=== PATIENT | female | born 1970 | race Caucasian/White ===

== ENCOUNTER 2017-02-14 19:23 | Emergency (ER) | payer BC, MEDICAID ==
[~2017-02-14] VITALS: Ht 167.6 cm; Wt 88.0 kg
[~2017-02-14 19:23] MED LIST: ASCO500C PO; ASCO500T PO; BACT800T5 PO; CARV6.252 PO; CINA30 PO; COLA100C; COLA100C PO; DOXY100C PO; ESCI20TA PO; FOSR1000 CHEW; GABA600T PO; HYDR-755 PO; LANTINJ SQ; LORA-373 PO; LORA-392 PO; NEPHTAB3 PO; NEUR600T PO; OMEP40CA2 PO; OXYC-68 PO; PERC5TAB12 PO; PRIL40CA PO; SERT-129 PO; SEVEL800 PO; TRAZ50TA12 PO; TRAZ50TA4 PO; ZOFR4TAB PO
[2017-02-14 19:25] VITALS: BP 224/101; PULSE 103; RESP 16; TEMP 98.9; O2SAT 94
== END 2017-02-15 00:25 | disposition left against medical advice (07) ==
LOC: NED 19:23
DX: Z03.89 Encounter for observation for other suspected diseases and conditions ruled out (principal)
CPT/HCPCS: 99281

== ENCOUNTER 2017-02-19 14:41 | Inpatient (IN) | payer MEDICAID ==
[~2017-02-19] VITALS: Ht 165.1 cm; Wt 107.9 kg
[~2017-02-19 14:41] MED LIST changes: -ASCO500C PO; -BACT800T5 PO; -COLA100C PO; -LORA-392 PO; -NEUR600T PO; -OXYC-68 PO; -PRIL40CA PO; -TRAZ50TA4 PO
[2017-02-19 14:46] VITALS: BP 235/100; PULSE 95; RESP 16; TEMP 98.2; O2SAT 98
--- NOTE | 2017-02-19 15:29 | PD ---
Physical Exam Time Seen by Provider: 15:26 Narrative 46 y/o female here for evaluation of shortness of breath and elevated bp today as well as L foot pain for several months. Vital signs reviewed. Seen at triage desk. Awaiting bed placement. Data Data Last Documented VS Vital Signs Date Time Temp Pulse Resp B/P Pulse Ox O2 Delivery O2 Flow Rate FiO2 02/19/17 14:46 98.2 95 16 235/100 98 MDM Medical Record Reviewed: Yes Supervised Visit with GAMA: Jose Canales Feb 19, 2017 15:29
--- NOTE | 2017-02-19 15:47 | PD ---
HPI Chief Complaint: Respiratory Symptoms Time Seen by Provider: 15:47 Travel History International Travel<30 days: No Contact w/Intl Traveler<30days: No Traveled to known affect area: No History of Present Illness HPI 46-year-old female with history of end-stage renal disease, dialysis Saturday, Saturday, Saturday, hypertension, CHF, diabetes, right BKA, neuropathy, presents to emergency department today for evaluation of worsening shortness of breath and discoloration/pain of her left foot. Shortness of breath has been both at rest and with activity however patient states she is becoming less tolerating of activity due to the shortness of breath. Patient was seen and evaluated by CARLINE Muhammad on February 14 and advised to come emergency department for this however the patient did not at that time. Patient reports breaking the left foot approximately 6 months ago and discoloration started and that has worsened and increased proximal to the mid distal lower extremity. Patient states she did receive dialysis yesterday but this did not help her chest heaviness and shortness of breath. She does not make urine. Denies any fever or chills. Denies any pain. She has no other symptoms to report at this time. PFSH Past Medical History Hx Anticoagulant Therapy: Yes (Eliquis) Arthritis: No Asthma: No Autoimmune Disease: No Blood Disorders: No Anxiety: No Depression: Yes Heart Rhythm Problems: No Cancer: No Cardiovascular Problems: Yes (HTN, CAD) High Cholesterol: No Chemotherapy: No Chest Pain: No Congestive Heart Failure: No COPD: No Cerebrovascular Accident: No Diabetes: Yes Diminished Hearing: No Endocrine: No GERD: No Glaucoma: No Genitourinary: Yes Headaches: Yes Hepatitis: No Hiatal Hernia: No Hypertension: No Immune Disorder: No Kidney Stones: No Musculoskeletal: No Neurologic: No Psychiatric: Yes Reproductive: No Respiratory: Yes (PNEUMONIA) Migraines: Yes Myocardial Infarction: No Radiation Therapy: No 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) Seizures: No Sickle Cell Disease: No Sleep Apnea: No Thyroid Disease: No Ulcer: No : 2 Para: 2 Ovarian Cysts: Yes (RIGHT OOPHRECTOMY) Past Surgical History Abdominal Surgery: No AICD: No Cardiac Surgery: No Cholecystectomy: Yes Ear Surgery: No Endocrine Surgery: No Eye Surgery: No Genitourinary Surgery: No Gynecologic Surgery: Yes (RIGHT OOPHERECTOMY) Joint Replacement: No Oral Surgery: Yes (TEETH EXTRACTED) Pacemaker: No Thoracic Surgery: No Other Surgery: Yes Social History Alcohol Use: No Tobacco Use: Yes (2 CIGAR/ DAY) Substance Use: No Allergies-Medications (Allergen,Severity, Reaction): Coded Allergies: Amoxicillin (Unverified Allergy, Severe, HIVES, 02/14/17) Codeine (Verified Allergy, Severe, HYPERACTIVITY &ITCH, 02/14/17) Iodine (Verified Allergy, Severe, TOPICAL/ITCH, 02/14/17) Vancomycin (Verified Allergy, Severe, KIDNEY FAILURE, 02/14/17) Iohexol (OMNIPAQUE) (Unverified Allergy, Intermediate, HIVES, 02/14/17) *MDRO Multi-Drug Resistant Organism (Verified Allergy, Unknown, 02/14/17) MRSA Penicillin (Verified Allergy, Unknown, 02/14/17) Pork (Verified Allergy, Unknown, 02/14/17) Reported Meds & Prescriptions Reported Meds & Active Scripts Active Omeprazole 40 Mg Cap 40 Mg PO BID Carvedilol 6.25 Mg Tab 6.25 Mg PO BID Lantus Solostar Pen Inj (Insulin Glargine) 300 Unit/3 Ml Pen 28 Units SQ HS Reported Trazodone (Trazodone HCl) 50 Mg Tab 50 Mg PO HS Sertraline (Sertraline HCl) 100 Mg Tab 100 Mg PO DAILY Renvela (Sevelamer Carbonate) 800 Mg Tab 3,200 Mg PO QIDPC Percocet (Oxycodone-Acetaminophen) 5-325 mg Tab 1 Tab PO Q6H PRN Nephro-Lory (B-Complex W/ C & Folic Acid) 1 Tab 1 Tab PO DAILY Lorazepam 0.5 Mg Tab 0.5 Mg PO Q6H PRN Gabapentin 600 Mg Tab 600 Mg PO TID Fosrenol (Lanthanum Carbonate) 1,000 Mg Tab 1,000 Mg CHEW BID Colace (Docusate Sodium) 100 Mg Capsule 100 Mg BID Ascorbic Acid 500 Mg Tab 500 Mg PO BID Hydroxyzine HCl 10 Mg Tab 10 Mg PO Q8HR Review of Systems Except as stated in HPI: all other systems reviewed are Neg Physical Exam Narrative GENERAL: Obese female patient, sitting in bed, in no acute distress. Appears chronically ill SKIN: Focused skin assessment warm/dry. Patient has scabbed lesions of her face. HEAD: Atraumatic. Normocephalic. EYES: Pupils equal and round. No scleral icterus. No injection or drainage. ENT: No nasal bleeding or discharge. Mucous membranes pink and moist. NECK: Trachea midline. No JVD. CARDIOVASCULAR: Elevated rate and rhythm. RESPIRATORY: No accessory muscle use. Diminished to auscultation. Breath sounds equal bilaterally. GASTROINTESTINAL: Abdomen soft, non-tender, nondistended. Hepatic and splenic margins not palpable. MUSCULOSKELETAL: Right BKA. No clubbing. No cyanosis. No edema. The left foot is with hyperpigmentation/petechial markings that cover it in its entirety extending to the mid distal left lower extremity. Distal pulses are palpable. The foot is warm. Patient has a callus lesion on the distal aspect of the left great toe. NEUROLOGICAL: Awake and alert. No obvious cranial nerve deficits. Motor grossly within normal limits. Normal speech. PSYCHIATRIC: Appropriate mood and affect; insight and judgment normal. Data Data Last Documented VS Vital Signs Date Time Temp Pulse Resp B/P Pulse Ox O2 Delivery O2 Flow Rate FiO2 02/19/17 16:39 89 18 99 Nasal Cannula 2 02/19/17 16:39 212/93 02/19/17 14:46 98.2 Orders Complete Blood Count With Diff (02/19/17 16:00) Comprehensive Metabolic Panel (02/19/17 16:00) B-Type Natriuretic Peptide (02/19/17 16:00) Act Partial Throm Time (Ptt) (02/19/17 16:00) Prothrombin Time / Inr (Pt) (02/19/17 16:00) Ckmb (Isoenzyme) Profile (02/19/17 16:00) Troponin I (02/19/17 16:00) Iv Access Insert/Monitor (02/19/17 16:00) Electrocardiogram (02/19/17 16:00) Ecg Monitoring (02/19/17 16:00) Oximetry (02/19/17 16:00) Oxygen Administration (02/19/17 16:00) Chest, Single Ap (02/19/17 16:00) Sodium Chloride 0.9% Flush (Ns Flush) (02/19/17 16:00) Foot, Complete ([id number]) (02/19/17 ) Diet Renal (02/19/17 Dinner) Consult Nephrology (02/19/17 ) Nicardipine Inj (Cardene Inj) (02/19/17 18:45) (Hub Use Only)Inp Phy Cons/Ref (02/19/17 ) Admit Order (Ed Use Only) (02/19/17 18:38) Labs Laboratory Tests Test 02/19/17 16:10 White Blood Count 6.9 TH/MM3 Red Blood Count 3.31 MIL/MM3 Hemoglobin 10.2 GM/DL Hematocrit 31.2 % Mean Corpuscular Volume 94.3 FL Mean Corpuscular Hemoglobin 30.9 PG Mean Corpuscular Hemoglobin 32.8 % Concent Red Cell Distribution Width 15.0 % Platelet Count 297 TH/MM3 Mean Platelet Volume 8.0 FL Neutrophils (%) (Auto) 72.8 % Lymphocytes (%) (Auto) 15.6 % Monocytes (%) (Auto) 6.8 % Eosinophils (%) (Auto) 3.6 % Basophils (%) (Auto) 1.2 % Neutrophils # (Auto) 5.0 TH/MM3 Lymphocytes # (Auto) 1.1 TH/MM3 Monocytes # (Auto) 0.5 TH/MM3 Eosinophils # (Auto) 0.2 TH/MM3 Basophils # (Auto) 0.1 TH/MM3 CBC Comment DIFF FINAL Differential Comment Prothrombin Time 12.0 SEC Prothromb Time International 1.1 RATIO Ratio Activated Partial 25.6 SEC Thromboplast Time Sodium Level 130 MEQ/L Potassium Level 5.9 MEQ/L Chloride Level 97 MEQ/L Carbon Dioxide Level 20.5 MEQ/L Anion Gap 13 MEQ/L Blood Urea Nitrogen 54 MG/DL Creatinine 6.80 MG/DL Estimat Glomerular Filtration 7 ML/MIN Rate Random Glucose 336 MG/DL Calcium Level 9.7 MG/DL Total Bilirubin 0.4 MG/DL Aspartate Amino Transf 6 U/L (AST/SGOT) Alanine Aminotransferase 10 U/L (ALT/SGPT) Alkaline Phosphatase 115 U/L Total Creatine Kinase 55 U/L Troponin I 0.05 NG/ML B-Type Natriuretic Peptide 1250 PG/ML Total Protein 8.2 GM/DL Albumin 3.1 GM/DL MDM Medical Decision Making Medical Screen Exam Complete: Yes Emergency Medical Condition: Yes Medical Record Reviewed: Yes Differential Diagnosis CHF exacerbation versus pneumonia versus sepsis versus electrolyte abnormality versus occlusion versus PAD versus skin discoloration Narrative Course 46 year-old female presents to emergency department for evaluation. Patient appears without distress. Her heart rate is elevated breath sounds are diminished. In review of the patient's record, patient has consistently high BP with systolic greater than 200 and Diastolic Greater than 100. She is denying any focal deficits; no headaches; no visual changes. I have requested recheck with appropriate sized cuff. Laboratory Tests Test 02/19/17 16:10 White Blood Count 6.9 TH/MM3 Red Blood Count 3.31 MIL/MM3 Hemoglobin 10.2 GM/DL Hematocrit 31.2 % Mean Corpuscular Volume 94.3 FL Mean Corpuscular Hemoglobin 30.9 PG Mean Corpuscular Hemoglobin 32.8 % Concent Red Cell Distribution Width 15.0 % Platelet Count 297 TH/MM3 Mean Platelet Volume 8.0 FL Neutrophils (%) (Auto) 72.8 % Lymphocytes (%) (Auto) 15.6 % Monocytes (%) (Auto) 6.8 % Eosinophils (%) (Auto) 3.6 % Basophils (%) (Auto) 1.2 % Neutrophils # (Auto) 5.0 TH/MM3 Lymphocytes # (Auto) 1.1 TH/MM3 Monocytes # (Auto) 0.5 TH/MM3 Eosinophils # (Auto) 0.2 TH/MM3 Basophils # (Auto) 0.1 TH/MM3 CBC Comment DIFF FINAL Differential Comment Prothrombin Time 12.0 SEC Prothromb Time International 1.1 RATIO Ratio Activated Partial 25.6 SEC Thromboplast Time Sodium Level 130 MEQ/L Potassium Level 5.9 MEQ/L Chloride Level 97 MEQ/L Carbon Dioxide Level 20.5 MEQ/L Anion Gap 13 MEQ/L Blood Urea Nitrogen 54 MG/DL Creatinine 6.80 MG/DL Estimat Glomerular Filtration 7 ML/MIN Rate Random Glucose 336 MG/DL Calcium Level 9.7 MG/DL Total Bilirubin 0.4 MG/DL Aspartate Amino Transf 6 U/L (AST/SGOT) Alanine Aminotransferase 10 U/L (ALT/SGPT) Alkaline Phosphatase 115 U/L Total Creatine Kinase 55 U/L Troponin I 0.05 NG/ML B-Type Natriuretic Peptide 1250 PG/ML Total Protein 8.2 GM/DL Albumin 3.1 GM/DL Last Impressions Chest X-Ray 02/19/17 1600 Signed Impressions: Service Date/Time: Sunday, February 19, 2017 16:16 - CONCLUSION: Cardiomegaly, right basilar effusion and interstitial prominence suggesting some degree of congestive failure. Odilon Keenan MD Foot X-Ray 02/19/17 0000 Signed Impressions: Service Date/Time: Sunday, February 19, 2017 16:11 - CONCLUSION: Chronic changes and no evidence for acute fracture. Lin Pagan MD I discussed the patient with my attending physician who has also assessed the patient; recommends contacting nephrology prior to CTA with runoff of the lower extremities. I spoke with Dr. Gilbert who is covering for Dr. Bailey. He states they will be able to coordinate dialysis following CTA tomorrow. I discussed the patient Dr. Lugo; He requests cardene gtt as pt BP remains significantly elevated. This is ordered. [facility]. Diagnosis Primary Impression: CHF exacerbation Qualified Code: I50.9 - Acute on chronic congestive heart failure, unspecified congestive heart failure type Additional Impressions: Foot fracture, left Qualified Code: S92.902A - Foot fracture, left, closed, initial encounter Hypertension Qualified Code: I10 - Hypertension, unspecified type PAD (peripheral artery disease) Admitting Information Admitting Physician Requests: Admit Condition: Stable Basilia West Feb 19, 2017 15:47
[2017-02-19] MEDS ORDERED: SODIUM CHLORIDE 0.9% FLUSH 10 ML FLUSH IVF PRN (16:00)
[2017-02-19 16:39] VITALS: BP 212/93; PULSE 89; RESP 18; O2SAT 99
[2017-02-19 16:39] LABS: BASOPHIL # 0.1 TH/MM3 (0-0.2); BASOPHIL % 1.2 % (0.0-2.0); EOSINOPHIL # 0.2 TH/MM3 (0-0.4); EOSINOPHIL % 3.6 % (0.0-4.0); HEMATOCRIT 31.2 % (35.0-46.0); HEMO FLAGS DIFF FINAL; LYMPH % 15.6 % (9.0-44.0); LYMPHOCYTE # 1.1 TH/MM3 (1.0-4.8); MEAN CELL VOLUME 94.3 FL (80.0-100.0); MEAN CORPUSCULAR HEMOGLOBIN 30.9 PG (27.0-34.0); MEAN CORPUSCULAR HGB CONC 32.8 % (32.0-36.0); MONO % 6.8 % (0.0-8.0); NEUT % 72.8 % (16.0-70.0); PLATELET COUNT 297 TH/MM3 (150-450); RED BLOOD COUNT 3.31 MIL/MM3 (4.00-5.30); WHITE BLOOD COUNT 6.9 TH/MM3 (4.0-11.0)
[2017-02-19 16:49] LABS: APTT (PATIENT) 25.6 SEC (24.3-30.1); INTERNATIONAL NORMALIZED RATIO 1.1 RATIO
[2017-02-19 16:59] LABS: ANION GAP 13 MEQ/L (5-15); AST (GOT) 6 U/L (15-37); BICARBONATE 20.5 MEQ/L (21.0-32.0); BLOOD UREA NITROGEN 54 MG/DL (7-18); CHLORIDE 97 MEQ/L (98-107); GLOMERULAR FILTRATION RATE 7 ML/MIN (>89); POTASSIUM 5.9 MEQ/L (3.5-5.1); SODIUM (NA) 130 MEQ/L (136-145)
[2017-02-19 17:00] LABS: ALT (GPT) 10 U/L (10-53)
[2017-02-19 17:04] LABS: ALKALINE PHOSPHATASE 115 U/L (45-117); TOTAL BILIRUBIN ADULT 0.4 MG/DL (0.2-1.0)
--- NOTE | 2017-02-19 17:07 | RADRPT ---
EXAM DATE/TIME: 02/19/2017 16:16 [facility] COMPARISON: FOOT LEFT COMPLETE ([id number]), February 19, 2017, 16:11. INDICATIONS : Short of breath today, no chest pain MEDICAL HISTORY : Diabetes mellitus type II. Renal failure, chronic. left foot fracture SURGICAL HISTORY : right leg amputation ENCOUNTER: Initial ACUITY: 1 day PAIN SCORE: 0/10 LOCATION: Bilateral chest FINDINGS: The heart is enlarged. There is a pleural effusion on the right. There is diffuse interstitial promin ence. Exam would suggest congestive failure. Note is made of several stents within the right axillary vein. CONCLUSION: Cardiomegaly, right basilar effusion and interstitial prominence suggesting some degree of congestive failure. Odilon Keenan MD on February 19, 2017 at 17:05 Board Certified Radiologist. This report was verified electronically.
[2017-02-19 17:14] LABS: CREATINE KINASE 55 U/L (26-192)
--- NOTE | 2017-02-19 17:16 | RADRPT ---
EXAM DATE/TIME: 02/19/2017 16:11 [facility] COMPARISON: No previous studies available for comparison. EXTERNAL COMPARISON : [facility] left foot October 19, 2016 INDICATIONS : Left foot was fractured in October 2016 and was recently injured again when patient ran over her foot w ith her wheelchair, pain along lateral left foot , especially the fifth metatarsal. Entire left foot and ankle appears swollen and discolored MEDICAL HISTORY : Renal failure, chronic. Diabetes mellitus type II. left 5th metatarsal fracture, third digit on left foot fractured SURGICAL HISTORY : right leg amputation ENCOUNTER: Initial ACUITY: 4 - 6 months PAIN SCORE: 10/10 LOCATION: Left foot FINDINGS: There is an old fracture of fifth metatarsal bone appears to be healed, however slightly displaced. N o definite acute fracture is seen. Chronic atherosclerotic calcifications are seen involving the visu alized arteries. There are degenerative changes within multiple joints mainly the interphalangeal abdullahi nts and the first metatarsophalangeal joint. CONCLUSION: Chronic changes and no evidence for acute fracture. Lin Pagan MD on February 19, 2017 at 17:14 Board Certified Radiologist. This report was verified electronically.
--- NOTE | 2017-02-19 18:44 | HHI.HP ---
HPI Service [facility] Hospitalists Primary Care Physician Andrew Torres MD Admission Diagnosis CHF;SOB; HTN; ESRD; LLE discoloration?PAD/occlusion Diagnoses: Chief Complaint: Shortness of breath, Left Foot left foot painpain and discoloration Travel History International Travel<30 Days: No Contact w/Intl Traveler <30 Da: No Traveled to Known Affected Are: No History of Present Illness Written by Carolina Hernadez, acting as scribe for Dr. Lugo on 02/19/17 at 18: 46. Patient is a 46 year old female with primary medical history of end-stage renal disease on hemodialysis, CAD, CHF, history of DVT, blindness, DM 2, HTN who came into the hospital for evaluation of increasing shortness of breath and left foot pain. Patient states that she noticed this morning that she has increasing shortness of breath, with or without activities. States that it's aggravated by her transferring from her wheelchair to regular chair and states that she felt like she have this kind of feeling 3 years ago when she had congestive heart failure. She also complains of orthopnea started about 3 days ago that she's able to put multiple pillows to be able to breathe better. States she had hemodialysis done yesterday and had 5 L fluid removal. Patient also reports left lower extremity pain, worsening discoloration over duration of 5 months. States that she had an accident and had broken her left foot 5 months ago, went to [place] and states it is broken in 5 different spots, was referred to [facility] [place] and was given a boot where in she had a fall with it also that she stopped using it. Due to change in her insurance and she was unable to follow up with orthopedist nor seen a [employer] letter carrier. Patient also reports that she hasn't had any of her blood pressure medications for about 4 days. She was seen at [facility] where in she was restarted on some of her "medications insulin, stomach medication, carvedilol." But she ran out on most of her medications for about 2 weeks now due to not having medication coverage from her insurance. Otherwise, denies pain and discomfort. Denies chest pain, palpitations, headaches, dizziness. Denies fevers, chills, n/v/d. Review of Systems Except as stated in HPI: all other systems reviewed are Neg Past Family Social History Past Medical History Bilateral eye blindness CAD CHF Anxiety Depression History of DVT Chronic back pain Left hip injury End-stage renal disease on hemodialysis DM 2 HTN Diabetic nephropathy Diabetic neuropathy Past Surgical History Right BKA Right arm fistula Left arm fistula, failed Knee surgery right Bilateral eye surgery lens implant Reported Medications Reported Meds & Active Scripts Active Omeprazole 40 Mg Cap 40 Mg PO BID Carvedilol 6.25 Mg Tab 6.25 Mg PO BID Lantus Solostar Pen Inj (Insulin Glargine) 300 Unit/3 Ml Pen 28 Units SQ HS Reported Trazodone (Trazodone HCl) 50 Mg Tab 50 Mg PO HS Sertraline (Sertraline HCl) 100 Mg Tab 100 Mg PO DAILY Sensipar (Cinacalcet) 30 Mg Tab 30 Mg PO DAILY Renvela (Sevelamer Carbonate) 800 Mg Tab 800 Mg PO QID Percocet (Oxycodone-Acetaminophen) 5-325 mg Tab 1 Tab PO Q6H PRN Nephro-Lory (B-Complex W/ C & Folic Acid) 1 Tab 1 Tab PO DAILY Lorazepam 0.5 Mg Tab 0.5 Mg PO Q6H PRN Gabapentin 600 Mg Tab 600 Mg PO TID Fosrenol (Lanthanum Carbonate) 1,000 Mg Tab 1,000 Mg CHEW BID Escitalopram (Escitalopram Oxalate) 20 Mg Tab 20 Mg PO DAILY Colace (Docusate Sodium) 100 Mg Capsule 100 Mg BID Ascorbic Acid 500 Mg Tab 500 Mg PO BID Doxycycline Hyclate 100 Mg Cap 100 Mg PO BID Hydroxyzine HCl 10 Mg Tab 10 Mg PO Q8HR Zofran (Ondansetron HCl) 4 Mg Tab 4 Mg PO Q8HR PRN Allergies: Coded Allergies: Amoxicillin (Unverified Allergy, Severe, HIVES, 02/14/17) Codeine (Verified Allergy, Severe, HYPERACTIVITY &ITCH, 02/14/17) Iodine (Verified Allergy, Severe, TOPICAL/ITCH, 02/14/17) Vancomycin (Verified Allergy, Severe, KIDNEY FAILURE, 02/14/17) Iohexol (OMNIPAQUE) (Unverified Allergy, Intermediate, HIVES, 02/14/17) *MDRO Multi-Drug Resistant Organism (Verified Allergy, Unknown, 02/14/17) MRSA Penicillin (Verified Allergy, Unknown, 02/14/17) Pork (Verified Allergy, Unknown, 02/14/17) Active Ordered Medications Current Medications Medications (Trade) Dose Ordered Sig/Jen Route Start Time Stop Time Status Last Admin Sodium Chloride 2 ml 2 ml UNSCH PRN IVF 02/19/17 16:00 (Cardene Inj/NS 250 ml Inj) 260 ml @ 0 mls/hr TITRATE IV 02/19/17 18:45 Family History Mother had diabetes, hypertension, blindness Father had heart disease, CABG surgery, bladder cancer, leukemia Social History Rare alcohol use Smokes half a pack per day, current day smoker Marijuana use Based on review of past medical history patient previously had IV drug use, cocaine use Physical Exam Vital Signs Vital Signs Date Time Temp Pulse Resp B/P Pulse Ox O2 Delivery O2 Flow Rate FiO2 02/19/17 16:39 89 18 99 Nasal Cannula 2 02/19/17 16:39 99 Nasal Cannula 2 02/19/17 16:39 89 18 212/93 99 Nasal Cannula 2 02/19/17 14:46 98.2 95 16 235/100 98 Physical Exam GENERAL: This is an obese, well-developed patient, mildly distress/ SOB. SKIN: Multiple facial and extremity lesions. Warm and dry. Left lower extremity discoloration. HEAD: Atraumatic. Normocephalic. EYES: Pupils equal round and reactive. Extraocular motions intact. No scleral icterus. No injection or drainage. ENT: Nose without bleeding. Throat without erythema. Uvula midline. Airway patent. NECK: Trachea midline. CARDIOVASCULAR: Regular rate and rhythm without murmurs, gallops, or rubs. RESPIRATORY: Clear to auscultation. Breath sounds equal bilaterally. No wheezes , rales, or rhonchi. GASTROINTESTINAL: Abdomen soft, obese, non-tender, nondistended. Bowel sounds active 4. MUSCULOSKELETAL: Extremities without clubbing, cyanosis, or edema. Left lower extremity discoloration, notable purpura, warm, pulses weak. Right AV fistula positive thrill and bruit. Right BKA. NEUROLOGICAL: Awake and alert. Oriented to time, person, place. No focal neuro deficit. Normal speech. Laboratory Laboratory Tests Test 02/19/17 16:10 White Blood Count 6.9 Red Blood Count 3.31 Hemoglobin 10.2 Hematocrit 31.2 Mean Corpuscular Volume 94.3 Mean Corpuscular Hemoglobin 30.9 Mean Corpuscular Hemoglobin 32.8 Concent Red Cell Distribution Width 15.0 Platelet Count 297 Mean Platelet Volume 8.0 Neutrophils (%) (Auto) 72.8 Lymphocytes (%) (Auto) 15.6 Monocytes (%) (Auto) 6.8 Eosinophils (%) (Auto) 3.6 Basophils (%) (Auto) 1.2 Neutrophils # (Auto) 5.0 Lymphocytes # (Auto) 1.1 Monocytes # (Auto) 0.5 Eosinophils # (Auto) 0.2 Basophils # (Auto) 0.1 CBC Comment DIFF FINAL Differential Comment Prothrombin Time 12.0 Prothromb Time International 1.1 Ratio Activated Partial 25.6 Thromboplast Time Sodium Level 130 Potassium Level 5.9 Chloride Level 97 Carbon Dioxide Level 20.5 Anion Gap 13 Blood Urea Nitrogen 54 Creatinine 6.80 Estimat Glomerular Filtration 7 Rate Random Glucose 336 Calcium Level 9.7 Total Bilirubin 0.4 Aspartate Amino Transf 6 (AST/SGOT) Alanine Aminotransferase 10 (ALT/SGPT) Alkaline Phosphatase 115 Total Creatine Kinase 55 Troponin I 0.05 B-Type Natriuretic Peptide 1250 Total Protein 8.2 Albumin 3.1 Result Diagram: 02/19/17 1610 02/19/17 1610 Imaging Last Impressions Chest X-Ray 02/19/17 1600 Signed Impressions: Service Date/Time: Sunday, February 19, 2017 16:16 - CONCLUSION: Cardiomegaly, right basilar effusion and interstitial prominence suggesting some degree of congestive failure. Odilon Keenan MD Foot X-Ray 02/19/17 0000 Signed Impressions: Service Date/Time: Sunday, February 19, 2017 16:11 - CONCLUSION: Chronic changes and no evidence for acute fracture. Lin Pagan MD Assessment and Plan Problem List: (1) Hypertension ICD Code: I10 Status: Acute (2) PAD (peripheral artery disease) ICD Code: I73.9 Status: Acute (3) Tobacco abuse ICD Code: Z72.0 Status: Chronic (4) ESRD (end stage renal disease) on dialysis ICD Code: N18.6 Status: Chronic (5) Diabetes ICD Code: E11.9 Status: Chronic (6) CHF exacerbation ICD Code: I50.9 Status: Acute (7) Hypertensive emergency ICD Code: I16.1 Status: Acute (8) Acute on chronic diastolic (congestive) heart failure ICD Code: I50.33 Status: Acute Assessment and Plan Patient is a 46 year old female with primary medical history of end-stage renal disease on hemodialysis, CAD, CHF, history of DVT, blindness, DM 2, HTN who came into the hospital for evaluation of increasing shortness of breath and left foot pain. Acute on chronic diastolic CHF exacerbation SOB, Orthopnea - Patient was complaining of increasing shortness of breath. Had hemodialysis done yesterday and 5 L fluid removal was done. - Chest x-ray showed cardiomegaly, right basilar effusion and interstitial prominence suggesting some degree of congestive failure - BNP 1250 - Fluid restriction - Continue on O2 nasal cannula and starts IV Lasix 20 mg daily - Check ECHO, last echo cardiogram done in 2010, EF 55-60% mitral valve regurg, left atrium mildly dilated, and tricuspid with mild regurgitation - Consult nephrology for hemodialysis, diuretic use if possible - CLOTH BLEACHING RANGE TENDER 6.80. May need immediate HD - Will resume carvedilol in patients off Cardene drip - May benefit with chest ultrasound for possible thoracentesis HTN, accelerated - Cardene drip - Monitor BP trend, may need vasodilator as adjunct since patient has heart failure End-stage renal disease - Patient was on outpatient hemodialysis MWF - Consult nephrology to restart hemodialysis Left lower extremity, PAD - Pain and discoloration have been noticed since 5 months ago. - X-ray showed chronic changes and no evidence for acute fracture - Pain management - Vascular imaging - CT runoff - Podiatry consult DM 2 - Insulin sliding scale, Cont Basal insulin - Monitor Accu-Cheks - Restart diabetic diet Tobacco abuse - Patient counseled. Hyperkalemia - K 5.9 - Kayexalate DVT Prop Heparin This note was transcribed by franca Hernadez. I, Dr. Osvaldo Lugo personally performed the history, physical exam, and medical decision making; and confirmed the accuracy of the information in the transcribed note. Authenticated by Dr. Osvaldo Lugo on 02/19/17 at 18:46. Code Status Full Code Discussed Condition With Patient, mother, ED attending Physician Certification 2 Midnight Certification Type: Admission for Inpatient Services (2) Order for Inpatient Services The services are ordered in accordance with Medicare regulations or non- Medicare payer requirements, as applicable. In the case of services not specified as inpatient-only, they are appropriately provided as inpatient services in accordance with the 2-midnight benchmark. Estimated LOS (days): 2 days is the estimated time the patient will need to remain in the hospital, assuming treatment plan goals are met and no additional complications. Post-Hospital Plan: Not yet determined Problem Qualifiers (1) Hypertension: Qualified Code: I10 - Hypertension, unspecified type (2) Diabetes: (3) CHF exacerbation: Qualified Code: I50.9 - Acute on chronic congestive heart failure, unspecified congestive heart failure type Carolina Velazco Feb 19, 2017 18:43 Osvaldo Lugo MD Feb 19, 2017 18:54
[2017-02-19 19:15] VITALS: BP 167/79; PULSE 70; RESP 16; O2SAT 98
[2017-02-19 19:24] VITALS: O2SAT 98
[2017-02-19] MEDS ORDERED: LACTULOSE SYRUP 20 GM/30 ML CUP PO PRN (19:30)
[2017-02-19] MEDS ORDERED: BISACODYL 10 MG SUPP RECTAL PRN (19:30)
[2017-02-19] MEDS ORDERED: GLUCAGON 1 MG/ML VIAL OTHER PRN (19:30)
[2017-02-19] MEDS ORDERED: SENNOSIDES 8.6 MG TAB PO PRN (19:30)
[2017-02-19] MEDS ORDERED: NALOXONE HCL 0.4 MG/ML AMP IV PRN (19:30)
[2017-02-19] MEDS ORDERED: SODIUM CHLORIDE 0.9% FLUSH 10 ML FLUSH IV FLUSH PRN ×2 (19:30→21:30)
[2017-02-19] MEDS ORDERED: ONDANSETRON HCL 4 MG/2 ML VIAL IVP PRN (19:30)
[2017-02-19] MEDS ORDERED: ACETAMINOPHEN 325 MG TAB PO PRN ×2 (19:30→21:30)
[2017-02-19] MEDS ORDERED: DEXTROSE 50% IN WATER 50 ML VIAL(D50) IV PRN (19:30)
[2017-02-19] MEDS ORDERED: MAGNESIUM HYDROXIDE SUSP 30 ML CUP PO PRN (19:30)
[2017-02-19] MEDS: niCARdipine INJ 25 MG in SODIUM CHLOR 0.9% 250 ML INJ 250 ML IV SCH (20:03)
[2017-02-19 20:34] VITALS: BP 203/80; PULSE 99; RESP 18; O2SAT 95
[2017-02-19] MEDS ORDERED: DOCUSATE SODIUM 50 MG/SENNA 8.6 MG TAB PO SCH (21:00)
[2017-02-19] MEDS ORDERED: INSULIN DETEMIR 100 UNITS/ML VIAL SQ SCH (21:00)
--- NOTE | 2017-02-19 21:09 | RADRPT ---
EXAM DATE/TIME: 02/19/2017 20:30 [place] COMPARISON: No previous studies available for comparison. INDICATIONS : Shortness of breath. MEDICAL HISTORY : Hypercholesterolemia. Gastroesophageal reflux disease. Hypertension. Legally blind. Migraines. Palmer ry artery disease. Anticoagulant therapy, Eliquis. Pneumonia. Ovarian cysts. Prgenancy. Renal failure . Dialysis. Diabetes. Depression. MRSA. Anemia. SURGICAL HISTORY : Cardiac catheterization. Right Oophorectomy. Right knee surgery. Right below the knee amputation. ENCOUNTER: Initial ACUITY: 1 day PAIN SCORE: 4/10 LOCATION: Right chest MEASUREMENTS: SKIN TO PARIETAL PLEURA: Inadequate fluid SKIN TO MAX SAFE DEPTH: Inadequate fluid ESTIMATED FLUID VOLUME: FLUID COMPOSITION: Inadequate fluid FINDINGS: No marking was performed. CONCLUSION: Only a trace amount of fluid seen within the right pleural space. Mark Sánchez Jr., MD on February 19, 2017 at 21:07 Board Certified Radiologist. This report was verified electronically.
[2017-02-19] MEDS ORDERED: SODIUM CHLOR 0.9% 1000 ML INJ 1,000 ML IV PRN ×2 (21:21)
[2017-02-19] MEDS ORDERED: ALBUMIN HUMAN 25% 25 GM/100 ML BAGP IV PRN (21:30)
[2017-02-19] MEDS ORDERED: GENTAMICIN SULFATE (DIALYSIS USE ONLY) 20 MG/2 ML VIAL IV PRN (21:30)
[2017-02-19] MEDS ORDERED: NITROGLYCERIN 0.4 MG SL 25 TABS/BTL SL PRN (21:30)
[2017-02-19] MEDS ORDERED: ONDANSETRON HCL 4 MG/2 ML VIAL IV PRN (21:30)
[2017-02-19] MEDS ORDERED: HEPARIN SODIUM - IV 10,000 UNITS/10 ML VIAL IVF PRN (21:30)
[2017-02-19] MEDS ORDERED: HEPARIN SODIUM - IV 10,000 UNITS/10 ML VIAL PRN (21:30)
[2017-02-19] MEDS ORDERED: MANNITOL 12.5 GM/50 ML VIAL IV PRN (21:30)
--- NOTE | 2017-02-19 21:53 | EKG ---
Date Performed: 02/19/2017 Time Performed: 16:03:41 PTAGE: 46 years EKG: Sinus rhythm MINIMAL ST DEPRESSION BORDERLINE ECG PREVIOUS TRACING : 02/07/2016 15.36 Compared to prior tracing no significant change DOCTOR: Milana Middleton Interpretating Date/Time 02/19/2017 21:51:31
[2017-02-19] MEDS: SODIUM POLYSTYRENE SULFONATE SUSP 15 GM/60 ML CUP PO ONE ×2 (22:21→22:42)
[2017-02-19 22:23] VITALS: BP 143/63; PULSE 92; RESP 20; O2SAT 95
[2017-02-19] MEDS: SODIUM CHLORIDE 0.9% FLUSH 10 ML FLUSH IV FLUSH SCH (22:42)
[2017-02-19] MEDS: HEPARIN SODIUM - SQ 10,000 UNITS/ML VIAL SQ SCH (22:43)
[2017-02-19] MEDS: INSULIN ASPART SUPPLEMENTAL SCALE SQ SCH (22:44)
[2017-02-19] MEDS: FUROSEMIDE 20 MG/2 ML VIAL IV PUSH SCH (22:46)
[2017-02-20] VITALS (10 sets, daily range): BP systolic 138–180; BP diastolic 65–88; PULSE 78–100; RESP 17–20; TEMP 98.1–98.6; O2SAT 96–99
[2017-02-20 05:32] LABS: AUTOMATED NEUTROPHIL # 6.4 TH/MM3 (1.8-7.7); BASOPHIL # 0.1 TH/MM3 (0-0.2); BASOPHIL % 0.9 % (0.0-2.0); EOSINOPHIL # 0.5 TH/MM3 (0-0.4); EOSINOPHIL % 5.3 % (0.0-4.0); HEMO FLAGS DIFF FINAL; LYMPH % 17.8 % (9.0-44.0); LYMPHOCYTE # 1.7 TH/MM3 (1.0-4.8); MEAN CELL VOLUME 95.9 FL (80.0-100.0); MEAN CORPUSCULAR HEMOGLOBIN 31.4 PG (27.0-34.0); MEAN CORPUSCULAR HGB CONC 32.7 % (32.0-36.0); MONO % 7.7 % (0.0-8.0); NEUT % 68.3 % (16.0-70.0); PLATELET COUNT 274 TH/MM3 (150-450); RED BLOOD COUNT 3.13 MIL/MM3 (4.00-5.30); RED CELL DISTRIBUTION WIDTH 14.6 % (11.6-17.2); WHITE BLOOD COUNT 9.3 TH/MM3 (4.0-11.0)
[2017-02-20 06:00] LABS: ALKALINE PHOSPHATASE 102 U/L (45-117); ALT (GPT) 9 U/L (10-53); ANION GAP 12 MEQ/L (5-15); AST (GOT) 3 U/L (15-37); BICARBONATE 21.9 MEQ/L (21.0-32.0); BLOOD UREA NITROGEN 63 MG/DL (7-18); CHLORIDE 98 MEQ/L (98-107); GLOMERULAR FILTRATION RATE 6 ML/MIN (>89); POTASSIUM 5.2 MEQ/L (3.5-5.1); SODIUM (NA) 132 MEQ/L (136-145); TOTAL BILIRUBIN ADULT 0.5 MG/DL (0.2-1.0)
[2017-02-20] MEDS ORDERED: hydrALAZINE HCL 20 MG/ML VIAL IV PUSH ONE (06:15)
--- NOTE | 2017-02-20 06:16 | HHI.PR ---
Subjective Remarks Critical Care brief consult note: Patient targeted to ICU from Hospitalist service. I have evaluated the patient for appropriateness of level of care. In brief, 46yF with ESRD and CHF who presented with SOB and found to have CHF exacerbation with elevated BNP. Also presented with hypertensive urgency on nicardipine infusion. Patient resting comfortably on my exam on 2L o2 by NC on nicardipine at 10mg/hr and a sbp 150. not tachypneic. not in distress. denies other complaints. ROS otherwise negative. Assessment: 46yF ESRD and CHF. Active Problems: Hypertension CHF exacerbation, diastolic type Recommendations: -- agree with current plan and management. -- I have contacted the hospitalist team and asked if we can restart her home meds and oral anti-hypertensives so that we can wean off rapidly titratable nicardipine infusion, and they have agreed with this joint plan of action -- I have started hydralazine 50mg po q8h with a 1 time hydralazine 20mg iv dose. -- restart home carvedilol 6.25mg po BID, first dose now. -- once off nicardipine, does not meet ICU admission criteria. Will decrease level of care. The Critical Care medicine team will remain peripherally aware of the patient, but will continue to allow hospitalist service to manage the patient's ongoing medical problems. Please contact us for questions or concerns. Objective Vital Signs Date Time Temp Pulse Resp B/P Pulse Ox O2 Delivery O2 Flow Rate FiO2 02/20/17 04:51 88 17 150/87 97 Nasal Cannula 2 02/20/17 04:43 98 Nasal Cannula 2.00 02/20/17 01:57 78 18 142/88 98 Nasal Cannula 2 02/20/17 00:28 88 20 146/66 98 Nasal Cannula 2 02/19/17 22:23 92 20 143/63 95 Nasal Cannula 2 02/19/17 20:34 99 18 203/80 95 Room Air 02/19/17 19:24 98 Nasal Cannula 2.00 02/19/17 19:15 70 16 167/79 98 Nasal Cannula 2 02/19/17 16:39 89 18 99 Nasal Cannula 2 02/19/17 16:39 99 Nasal Cannula 2 02/19/17 16:39 89 18 212/93 99 Nasal Cannula 2 02/19/17 14:46 98.2 95 16 235/100 98 Result Diagram: 02/20/17 0506 02/20/17 0506 Luis Carlos Jung MD Feb 20, 2017 06:16
[2017-02-20] MEDS: hydrALAZINE HCL 50 MG TAB PO SCH ×3 (06:35→21:51)
[2017-02-20] MEDS: CARVEDILOL 6.25 MG TAB PO SCH ×2 (07:02→21:51)
[2017-02-20] MEDS: INSULIN ASPART SUPPLEMENTAL SCALE SQ SCH ×4 (07:44→21:58)
[2017-02-20] MEDS: niCARdipine INJ 25 MG in SODIUM CHLOR 0.9% 250 ML INJ 250 ML IV SCH (07:48)
[2017-02-20] MEDS: HEPARIN SODIUM - SQ 10,000 UNITS/ML VIAL SQ SCH ×2 (09:00→21:51)
[2017-02-20] MEDS: FUROSEMIDE 20 MG/2 ML VIAL IV PUSH SCH (09:00)
[2017-02-20] MEDS: SODIUM CHLORIDE 0.9% FLUSH 10 ML FLUSH IV FLUSH SCH ×2 (09:06→21:52)
[2017-02-20] MEDS: SODIUM CHLOR 0.9% 1000 ML INJ 1,000 ML IV PRN ×2 (09:36→12:47)
[2017-02-20] MEDS: GELATIN 12 MM/7 MM FOAM TOP PRN (09:37)
[2017-02-20] MEDS: EPOETIN ALFA 10,000 UNITS/ML VIAL IV PRN (09:37)
--- NOTE | 2017-02-20 11:05 | PD.CONS ---
HPI Service Nephrology Consult Requested By Dr. 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 Mason. Her dialysis days are Saturday and Saturday Review of Systems Constitutional: COMPLAINS OF: Fatigue Integumentary: COMPLAINS OF: Abnormal pigmentation, Rash Neurologic: COMPLAINS OF: Abnormal gait Past Family Social History Allergies: Coded Allergies: Amoxicillin (Unverified Allergy, Severe, HIVES, 02/14/17) Codeine (Verified Allergy, Severe, HYPERACTIVITY &ITCH, 02/14/17) Iodine (Verified Allergy, Severe, TOPICAL/ITCH, 02/14/17) Vancomycin (Verified Allergy, Severe, KIDNEY FAILURE, 02/14/17) Iohexol (OMNIPAQUE) (Unverified Allergy, Intermediate, HIVES, 02/14/17) *MDRO Multi-Drug Resistant Organism (Verified Allergy, Unknown, 02/14/17) MRSA Penicillin (Verified Allergy, Unknown, 02/14/17) Pork (Verified Allergy, Unknown, 02/14/17) Past Medical History Diabetes Hypertension End-stage renal disease Anemia Hyperparathyroidism Calciphylaxis Peripheral vascular disease Wound infection Past Surgical History Right below-knee amputation AV fistula Right sided oophorectomy Reported Medications Reported Meds & Active Scripts Active Omeprazole 40 Mg Cap 40 Mg PO BID Carvedilol 6.25 Mg Tab 6.25 Mg PO BID Lantus Solostar Pen Inj (Insulin Glargine) 300 Unit/3 Ml Pen 28 Units SQ HS Reported Trazodone (Trazodone HCl) 50 Mg Tab 50 Mg PO HS Sertraline (Sertraline HCl) 100 Mg Tab 100 Mg PO DAILY Renvela (Sevelamer Carbonate) 800 Mg Tab 3,200 Mg PO QIDPC Percocet (Oxycodone-Acetaminophen) 5-325 mg Tab 1 Tab PO Q6H PRN Nephro-Lory (B-Complex W/ C & Folic Acid) 1 Tab 1 Tab PO DAILY Lorazepam 0.5 Mg Tab 0.5 Mg PO Q6H PRN Gabapentin 600 Mg Tab 600 Mg PO TID Fosrenol (Lanthanum Carbonate) 1,000 Mg Tab 1,000 Mg CHEW BID Colace (Docusate Sodium) 100 Mg Capsule 100 Mg BID Ascorbic Acid 500 Mg Tab 500 Mg PO BID Hydroxyzine HCl 10 Mg Tab 10 Mg PO Q8HR Active Ordered Medications Current Medications Medications (Trade) Dose Ordered Sig/Jen Route Start Time Stop Time Status Last Admin Sodium Chloride 2 ml 2 ml UNSCH PRN IVF 02/19/17 16:00 (Cardene Inj/NS 250 ml Inj) 260 ml @ 0 mls/hr TITRATE IV 02/19/17 18:45 02/19/17 20:03 (NS Flush) 2 ml UNSCH PRN IV FLUSH 02/19/17 19:30 (NS Flush) 2 ml BID IV FLUSH 02/19/17 21:00 02/20/17 09:06 (Tylenol) 650 mg Q4H PRN PO 02/19/17 19:30 (Zofran Inj) 4 mg Q6H PRN IVP 02/19/17 19:30 (Narcan Inj) 0.4 mg UNSCH PRN IV 02/19/17 19:30 (Senokot) 17.2 mg Q12H PRN PO 02/19/17 19:30 (Dulcolax Supp) 10 mg DAILY PRN RECTAL 02/19/17 19:30 (D50w (Vial) Inj) 50 ml UNSCH PRN IV 02/19/17 19:30 (Glucagon Inj) 1 mg UNSCH PRN OTHER 02/19/17 19:30 (Levemir Inj) 28 units HS SQ 02/19/17 21:00 02/19/17 22:43 (Heparin Inj) 5,000 units Q12HR SQ 02/19/17 21:00 02/19/17 22:43 Furosemide 20 mg 20 mg DAILY IV PUSH 02/19/17 21:15 02/19/17 22:46 (NS 1000 ml Inj) 1,000 ml @ 0 mls/hr Q0M PRN IV 02/19/17 21:21 Heparin Sodium (Porcine) 8000 units 8,000 units UNSCH PRN IVF 02/19/17 21:30 Sodium Chloride 1,000 ml @ 200 mls/hr Q5H PRN IV 02/19/17 21:21 02/20/17 09:36 (NS 1000 ml Inj) 1,000 ml @ 0 mls/hr Q0M PRN IV 02/19/17 21:21 (Mannitol Inj) 12.5 gm UNSCH PRN IV 02/19/17 21:30 (Albumin 25% Inj) 25 gm UNSCH PRN IV 02/19/17 21:30 (NS Flush) 5 ml UNSCH PRN IV FLUSH 02/19/17 21:30 (Heparin Inj) UNSCH PRN .XX 02/19/17 21:30 (Gentamicin (Dialysis) Inj) 20 mg UNSCH PRN IV 02/19/17 21:30 (Zofran Inj) 4 mg UNSCH PRN IV 02/19/17 21:30 (Tylenol) 650 mg UNSCH PRN PO 02/19/17 21:30 (Benadryl) 25 mg UNSCH PRN PO 02/19/17 21:30 (Nitrostat Sl) 0.4 mg UNSCH PRN SL 02/19/17 21:30 (Catapres) 0.1 mg UNSCH PRN PO 02/19/17 21:30 (Epogen Inj) 4,000 units UNSCH PRN IV 02/19/17 21:30 02/20/17 09:37 (Gelfoam 12 Mm/7 Mm Top) 1 foam UNSCH PRN TOP 02/19/17 21:30 02/20/17 09:37 (Apresoline) 50 mg Q8HR PO 02/20/17 06:06 02/20/17 06:35 (Coreg) 6.25 mg BID PO 02/20/17 09:00 02/20/17 07:02 Family History Noncontributory Social History History of use of marijuana Physical Exam Vital Signs Vital Signs Date Time Temp Pulse Resp B/P Pulse Ox O2 Delivery O2 Flow Rate FiO2 02/20/17 07:00 86 18 156/68 98 Nasal Cannula 2 02/20/17 04:51 88 17 150/87 97 Nasal Cannula 2 02/20/17 04:43 98 Nasal Cannula 2.00 02/20/17 01:57 78 18 142/88 98 Nasal Cannula 2 02/20/17 00:28 88 20 146/66 98 Nasal Cannula 2 02/19/17 22:23 92 20 143/63 95 Nasal Cannula 2 02/19/17 20:34 99 18 203/80 95 Room Air 02/19/17 19:24 98 Nasal Cannula 2.00 02/19/17 19:15 70 16 167/79 98 Nasal Cannula 2 02/19/17 16:39 89 18 99 Nasal Cannula 2 02/19/17 16:39 99 Nasal Cannula 2 02/19/17 16:39 89 18 212/93 99 Nasal Cannula 2 02/19/17 14:46 98.2 95 16 235/100 98 Physical Exam GENERAL: Well-nourished, well-developed patient. SKIN: Warm and dry. HEAD: Normocephalic. Ulceration seen on forehead EYES: No scleral icterus. No injection or drainage. NECK: Supple, trachea midline. No JVD or lymphadenopathy. CARDIOVASCULAR: Regular rate and rhythm without murmurs, gallops, or rubs. RESPIRATORY: Breath sounds equal bilaterally. No accessory muscle use. GASTROINTESTINAL: Abdomen soft, non-tender, nondistended. EXTREMITIES: Left foot is mottled discolored poor pulses, right below-knee amputation NEUROLOGICAL: Awake, alert, and oriented x 3. Non-focal. Laboratory Laboratory Tests Test 02/19/17 02/20/17 16:10 05:06 White Blood Count 6.9 9.3 Red Blood Count 3.31 3.13 Hemoglobin 10.2 9.8 Hematocrit 31.2 30.0 Mean Corpuscular Volume 94.3 95.9 Mean Corpuscular Hemoglobin 30.9 31.4 Mean Corpuscular Hemoglobin 32.8 32.7 Concent Red Cell Distribution Width 15.0 14.6 Platelet Count 297 274 Mean Platelet Volume 8.0 7.8 Neutrophils (%) (Auto) 72.8 68.3 Lymphocytes (%) (Auto) 15.6 17.8 Monocytes (%) (Auto) 6.8 7.7 Eosinophils (%) (Auto) 3.6 5.3 Basophils (%) (Auto) 1.2 0.9 Neutrophils # (Auto) 5.0 6.4 Lymphocytes # (Auto) 1.1 1.7 Monocytes # (Auto) 0.5 0.7 Eosinophils # (Auto) 0.2 0.5 Basophils # (Auto) 0.1 0.1 CBC Comment DIFF FINAL DIFF FINAL Differential Comment Prothrombin Time 12.0 Prothromb Time International 1.1 Ratio Activated Partial 25.6 Thromboplast Time Sodium Level 130 132 Potassium Level 5.9 5.2 Chloride Level 97 98 Carbon Dioxide Level 20.5 21.9 Anion Gap 13 12 Blood Urea Nitrogen 54 63 Creatinine 6.80 7.28 Estimat Glomerular Filtration 7 6 Rate Random Glucose 336 227 Calcium Level 9.7 9.6 Total Bilirubin 0.4 0.5 Aspartate Amino Transf 6 3 (AST/SGOT) Alanine Aminotransferase 10 9 (ALT/SGPT) Alkaline Phosphatase 115 102 Total Creatine Kinase 55 Troponin I 0.05 B-Type Natriuretic Peptide 1250 Total Protein 8.2 7.9 Albumin 3.1 3.1 Result Diagram: 02/20/17 0506 02/20/17 0506 Imaging Last Impressions Chest X-Ray 02/19/17 1600 Signed Impressions: Service Date/Time: Sunday, February 19, 2017 16:16 - CONCLUSION: Cardiomegaly, right basilar effusion and interstitial prominence suggesting some degree of congestive failure. Odilon Keenan MD Foot X-Ray 02/19/17 0000 Signed Impressions: Service Date/Time: Sunday, February 19, 2017 16:11 - CONCLUSION: Chronic changes and no evidence for acute fracture. Lin Pagan MD Chest Ultrasound 02/19/17 0000 Signed Impressions: Service Date/Time: Sunday, February 19, 2017 20:30 - CONCLUSION: Only a trace amount of fluid seen within the right pleural space. Mark Sánchez Jr., MD Assessment and Plan Problem List: (1) ESRD (end stage renal disease) on dialysis Plan: Patient is seen during hemodialysis for 5 L will be taken off, she has a problem with the left ischemic foot and needs a vascular surgery consult Continue to follow her progress (2) Hyperkalemia Plan: Continue dialysis treatment potassium is slowly improving (3) Diabetes Plan: Continue monitor while in the hospital (4) Peripheral vascular disease Plan: Vascular surgery (5) Calciphylaxis Plan: Patient is suspected to have calciphylaxis check phosphorus, parathyroid , vitamin D Problem Qualifiers (1) Diabetes: Gerri Gilbert MD Feb 20, 2017 11:05
--- NOTE | 2017-02-20 14:44 | HHI.PR ---
Subjective Remarks Follow-up hypertensive emergency/acute on chronic diastolic CHF/left lower extremity pain 02/20/17-patient seen and examined, she had hemodialysis and 5 L of fluid removed. Complained of left lower extremity pain. BP now control. Objective Vitals Vital Signs Date Time Temp Pulse Resp B/P Pulse Ox O2 Delivery O2 Flow Rate FiO2 02/20/17 14:22 Nasal Cannula 2.00 02/20/17 12:36 100 20 139/65 97 Room Air 02/20/17 07:00 86 18 156/68 98 Nasal Cannula 2 02/20/17 04:51 88 17 150/87 97 Nasal Cannula 2 02/20/17 04:43 98 Nasal Cannula 2.00 02/20/17 01:57 78 18 142/88 98 Nasal Cannula 2 02/20/17 00:28 88 20 146/66 98 Nasal Cannula 2 02/19/17 22:23 92 20 143/63 95 Nasal Cannula 2 02/19/17 20:34 99 18 203/80 95 Room Air 02/19/17 19:24 98 Nasal Cannula 2.00 02/19/17 19:15 70 16 167/79 98 Nasal Cannula 2 02/19/17 16:39 89 18 99 Nasal Cannula 2 02/19/17 16:39 99 Nasal Cannula 2 02/19/17 16:39 89 18 212/93 99 Nasal Cannula 2 02/19/17 14:46 98.2 95 16 235/100 98 I/O 02/19/17 02/19/17 02/19/17 02/20/17 02/20/17 02/20/17 07:00 15:00 23:00 07:00 15:00 23:00 Output Total 5000 ml Balance -5000 ml Output Hemodialysis 5000 ml Result Diagram: 02/20/17 0506 02/20/17 0506 Imaging Last Impressions Chest X-Ray 02/19/17 1600 Signed Impressions: Service Date/Time: Sunday, February 19, 2017 16:16 - CONCLUSION: Cardiomegaly, right basilar effusion and interstitial prominence suggesting some degree of congestive failure. Odilon Keenan MD Foot X-Ray 02/19/17 0000 Signed Impressions: Service Date/Time: Sunday, February 19, 2017 16:11 - CONCLUSION: Chronic changes and no evidence for acute fracture. Lin Pagan MD Chest Ultrasound 02/19/17 0000 Signed Impressions: Service Date/Time: Sunday, February 19, 2017 20:30 - CONCLUSION: Only a trace amount of fluid seen within the right pleural space. Mark Sánchez Jr., MD Objective Remarks GENERAL: NAD SKIN: Warm and dry. HEAD: Normocephalic. EYES: No scleral icterus. No injection or drainage. NECK: Supple, trachea midline. No JVD or lymphadenopathy. CARDIOVASCULAR: Regular rate and rhythm without murmurs, gallops, or rubs. RESPIRATORY: Breath sounds equal bilaterally. No accessory muscle use. GASTROINTESTINAL: Abdomen soft, non-tender, nondistended. MUSCULOSKELETAL: No cyanosis, or edema. Right BKA. Left lower extremity discoloration, notable purpura, warm, pulses weak. Right AV fistula positive thrill and bruit. BACK: Nontender without obvious deformity. No CVA tenderness. A/P Problem List: (1) Hypertension ICD Code: I10 Status: Acute (2) PAD (peripheral artery disease) ICD Code: I73.9 Status: Acute (3) Tobacco abuse ICD Code: Z72.0 Status: Chronic (4) ESRD (end stage renal disease) on dialysis ICD Code: N18.6 Status: Chronic (5) Diabetes ICD Code: E11.9 Status: Chronic (6) CHF exacerbation ICD Code: I50.9 Status: Acute (7) Hypertensive emergency ICD Code: I16.1 Status: Acute (8) Acute on chronic diastolic (congestive) heart failure ICD Code: I50.33 Status: Acute Assessment and Plan 46-year-old female with Acute on chronic diastolic CHF exacerbation SOB, Orthopnea - Chest x-ray showed cardiomegaly, right basilar effusion and interstitial prominence suggesting some degree of congestive failure - BNP 1250 - Fluid restriction and continue with IV Lasix - Continue on O2 nasal cannula - ECHO pending, last echo cardiogram done in 2010, EF 55-60% mitral valve regurg, left atrium mildly dilated, and tricuspid with mild regurgitation - nephrology for hemodialysis, diuretic use if possible - 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 - Continue with Coreg - Chest ultrasound rule out left large pleural effusion HTN, accelerated-resolved - Status post Cardene drip -Currently on Coreg twice a day and hydralazine End-stage renal disease - Patient was on outpatient hemodialysis MWF - Appreciate input from nephrology and continue with scheduled hemodialysis. she had HD today with 5L fluid removed Left lower extremity, PAD - Pain and discoloration have been noticed since 5 months ago. - X-ray showed chronic changes and no evidence for acute fracture - Pain management - Vascular imaging - CTA runoff - Podiatry consult -Vascular surgery consult DM 2 - Insulin sliding scale, increase Basal insulin to 35 units at bedtime - Monitor Accu-Cheks Tobacco abuse - Patient counseled. Hyperkalemia - s/p Kayexalate Calciphylaxis Check phosphorus, PTH and vitamin D DVT Prop Heparin Problem Qualifiers (1) Hypertension: Qualified Code: I10 - Hypertension, unspecified type (2) Diabetes: (3) CHF exacerbation: Qualified Code: I50.9 - Acute on chronic congestive heart failure, unspecified congestive heart failure type Osvaldo Lugo MD Feb 20, 2017 14:44 congestive heart failure type Osvaldo Lugo MD Feb 20, 2017 14:44
[2017-02-20] MEDS ORDERED: OMEP40CA2 PO (14:53)
[2017-02-20 17:06] LABS: HEMOGLOBIN A1a 1.3 %; HEMOGLOBIN Ao 78.5 %; HEMOGLOBIN F 1.6 %; HEMOGLOBIN LA1C 2.7 %; HEMOGLOBIN P3 7.5 %
--- NOTE | 2017-02-20 18:59 | ECHRPT ---
Indication: EF assessment of CHF CONCLUSIONS Normal left ventricular size. Mild concentric left ventricular hypertrophy. The left ventricular systolic function is low normal with an estimated ejection fraction in the rang e of 50- 55%. No regional wall motion abnormalities are present. Doppler parameters are consistent with a restrictive left ventricular filling pattern indicative of decreased left ventricular diastolic compliance and increase left atrial pressure (grade 4 diastolic dysfuncti on). Mild thickening of the mitral valve leaflets. Moderate mitral annular calcification. Trace mitral valve regurgitation. Structurally normal tricuspid valve. There is mild tricuspid valve regurgitation. There is estimated moderate pulmonary hypertension present (range 50-60 mmHg). BP: 156 / 68 HR: 86 Rhythm: Sinus MEASUREMENTS (Male / Female) Normal Values Technical Quality:Fair 2D ECHO LV Diastolic Diameter PLAX 4.6 cm 4.2 - 5.9 / 3.9 - 5.3 cm LV Systolic Diameter PLAX 3.6 cm IVS Diastolic Thickness 1.0 cm 0.6 - 1.0 / 0.6 - 0.9 cm LVPW Diastolic Thickness 1.0 cm 0.6 - 1.0 / 0.6 - 0.9 cm LV Relative Wall Thickness 0.4 LVOT Diameter 1.9 cm Aortic Root Diameter 3.0 cm LA Systolic Diameter LX 4.1 cm 3.0 - 4.0 / 2.7 - 3.8 cm M-MODE AV Cusp Separation MM 2.3 cm DOPPLER AV Peak Velocity 172.0 cm/s AV Peak Gradient 11.8 mmHg AV Mean Gradient 6.0 mmHg AV Velocity Time Integral 28.5 cm LVOT Peak Velocity 113.0 cm/s LVOT Peak Gradient 5.1 mmHg LVOT Velocity Time Integral 20.1 cm LVOT Cardiac Index 2201.7 cm/minm AV Area Cont Eq vti 2.0 cm AV Area Cont Eq pk 1.9 cm Mitral E Point Velocity 139.0 cm/s Mitral A Point Velocity 60.2 cm/s Mitral E to A Ratio 2.3 LV E' Lateral Velocity 6.1 cm/s Mitral E to LV E' Lateral Ratio 22.6 LV E' Septal Velocity 4.7 cm/s Mitral E to LV E' Septal Ratio 29.7 TR Peak Velocity 329.0 cm/s TR Peak Gradient 43.3 mmHg PV Peak Velocity 84.2 cm/s PV Peak Gradient 2.8 mmHg FINDINGS LEFT VENTRICLE Normal left ventricular size. Mild concentric left ventricular hypertrophy. The left ventricular systolic function is low normal with an estimated ejection fraction in the rang e of 50- 55%. No regional wall motion abnormalities are present. Doppler parameters are consistent with a restrictive left ventricular filling pattern indicative of decreased left ventricular diastolic compliance and increase left atrial pressure (grade 4 diastolic dysfuncti on). MITRAL VALVE Mild thickening of the mitral valve leaflets. Moderate mitral annular calcification. Trace mitral valve regurgitation. TRICUSPID VALVE Structurally normal tricuspid valve. There is mild tricuspid valve regurgitation. There is estimated moderate pulmonary hypertension present (range 50-60 mmHg). Milana Middleton MD, FACC (Electronically Signed) Final Date:20 February 2017 18:58
--- NOTE | 2017-02-20 19:20 | PD.CONS ---
History of Present Illness Service Podiatry Consult Requested By Reason for Consult L foot discoloration Primary Care Physician Andrew Torres MD Diagnoses: History of Present Illness Patient is a 46 year old female with primary medical history of end-stage renal disease on hemodialysis, CAD, CHF, history of DVT, blindness, DM 2, HTN who came into the hospital for evaluation of increasing shortness of breath and left foot pain. She says her R foot issues began the same way and she is scared. She has no wound currently on L foot, but is afraid she will lose it. She says she rolled over her L foot with her wheelchair and broke her L foot about 4 mos ago Past Family Social History Allergies: Coded Allergies: Amoxicillin (Unverified Allergy, Severe, HIVES, 02/14/17) Codeine (Verified Allergy, Severe, HYPERACTIVITY &ITCH, 02/14/17) Iodine (Verified Allergy, Severe, TOPICAL/ITCH, 02/14/17) Vancomycin (Verified Allergy, Severe, KIDNEY FAILURE, 02/14/17) Iohexol (OMNIPAQUE) (Unverified Allergy, Intermediate, HIVES, 02/14/17) *MDRO Multi-Drug Resistant Organism (Verified Allergy, Unknown, 02/14/17) MRSA Penicillin (Verified Allergy, Unknown, 02/14/17) Pork (Verified Allergy, Unknown, 02/14/17) Past Medical History Bilateral eye blindness CAD CHF Anxiety Depression History of DVT Chronic back pain Left hip injury End-stage renal disease on hemodialysis DM 2 HTN Diabetic nephropathy Diabetic neuropathy Past Surgical History Right BKA Right arm fistula Left arm fistula, failed Knee surgery right Bilateral eye surgery lens implant Active Ordered Medications Current Medications Medications (Trade) Dose Ordered Sig/Jen Route Start Time Stop Time Status Last Admin Sodium Chloride 2 ml 2 ml UNSCH PRN IVF 02/19/17 16:00 (Cardene Inj/NS 250 ml Inj) 260 ml @ 0 mls/hr TITRATE IV 02/19/17 18:45 02/19/17 20:03 (NS Flush) 2 ml UNSCH PRN IV FLUSH 02/19/17 19:30 (NS Flush) 2 ml BID IV FLUSH 02/19/17 21:00 02/20/17 09:06 (Tylenol) 650 mg Q4H PRN PO 02/19/17 19:30 (Zofran Inj) 4 mg Q6H PRN IVP 02/19/17 19:30 (Narcan Inj) 0.4 mg UNSCH PRN IV 02/19/17 19:30 (Senokot) 17.2 mg Q12H PRN PO 02/19/17 19:30 (Dulcolax Supp) 10 mg DAILY PRN RECTAL 02/19/17 19:30 (D50w (Vial) Inj) 50 ml UNSCH PRN IV 02/19/17 19:30 (Glucagon Inj) 1 mg UNSCH PRN OTHER 02/19/17 19:30 (Heparin Inj) 5,000 units Q12HR SQ 02/19/17 21:00 02/19/17 22:43 Furosemide 20 mg 20 mg DAILY IV PUSH 02/19/17 21:15 02/19/17 22:46 (NS 1000 ml Inj) 1,000 ml @ 0 mls/hr Q0M PRN IV 02/19/17 21:21 Heparin Sodium (Porcine) 8000 units 8,000 units UNSCH PRN IVF 02/19/17 21:30 Sodium Chloride 1,000 ml @ 200 mls/hr Q5H PRN IV 02/19/17 21:21 02/20/17 09:36 (NS 1000 ml Inj) 1,000 ml @ 0 mls/hr Q0M PRN IV 02/19/17 21:21 (Mannitol Inj) 12.5 gm UNSCH PRN IV 02/19/17 21:30 (Albumin 25% Inj) 25 gm UNSCH PRN IV 02/19/17 21:30 (NS Flush) 5 ml UNSCH PRN IV FLUSH 02/19/17 21:30 (Heparin Inj) UNSCH PRN .XX 02/19/17 21:30 (Gentamicin (Dialysis) Inj) 20 mg UNSCH PRN IV 02/19/17 21:30 (Zofran Inj) 4 mg UNSCH PRN IV 02/19/17 21:30 (Tylenol) 650 mg UNSCH PRN PO 02/19/17 21:30 (Benadryl) 25 mg UNSCH PRN PO 02/19/17 21:30 (Nitrostat Sl) 0.4 mg UNSCH PRN SL 02/19/17 21:30 (Catapres) 0.1 mg UNSCH PRN PO 02/19/17 21:30 (Epogen Inj) 4,000 units UNSCH PRN IV 02/19/17 21:30 02/20/17 09:37 (Gelfoam 12 Mm/7 Mm Top) 1 foam UNSCH PRN TOP 02/19/17 21:30 02/20/17 09:37 (Apresoline) 50 mg Q8HR PO 02/20/17 06:06 02/20/17 06:35 (Coreg) 6.25 mg BID PO 02/20/17 09:00 02/20/17 07:02 (Levemir Inj) 32 units HS SQ 02/20/17 21:00 (Blanco 7.5-325 Mg) 1 tab Q4H PRN PO 02/20/17 19:15 UNV Family History Mother had diabetes, hypertension, blindness Father had heart disease, CABG surgery, bladder cancer, leukemia Social History Rare alcohol use Smokes half a pack per day, current day smoker Marijuana use Based on review of past medical history patient previously had IV drug use, cocaine use Physical Exam Vital Signs Vital Signs Date Time Temp Pulse Resp B/P Pulse Ox O2 Delivery O2 Flow Rate FiO2 02/20/17 16:04 98.1 97 19 174/79 96 02/20/17 15:17 138/74 02/20/17 14:22 Nasal Cannula 2.00 02/20/17 12:36 100 20 139/65 97 Room Air 02/20/17 07:00 86 18 156/68 98 Nasal Cannula 2 02/20/17 04:51 88 17 150/87 97 Nasal Cannula 2 02/20/17 04:43 98 Nasal Cannula 2.00 02/20/17 01:57 78 18 142/88 98 Nasal Cannula 2 02/20/17 00:28 88 20 146/66 98 Nasal Cannula 2 02/19/17 22:23 92 20 143/63 95 Nasal Cannula 2 02/19/17 20:34 99 18 203/80 95 Room Air 02/19/17 19:24 98 Nasal Cannula 2.00 Physical Exam R proximal amputation. L foot with discoloration/reddish-brown. No gangrenous changes noted. Foot is warm to touch. No open wounds noted. Laboratory Laboratory Tests Test 02/20/17 05:06 White Blood Count 9.3 Red Blood Count 3.13 Hemoglobin 9.8 Hematocrit 30.0 Mean Corpuscular Volume 95.9 Mean Corpuscular Hemoglobin 31.4 Mean Corpuscular Hemoglobin 32.7 Concent Red Cell Distribution Width 14.6 Platelet Count 274 Mean Platelet Volume 7.8 Neutrophils (%) (Auto) 68.3 Lymphocytes (%) (Auto) 17.8 Monocytes (%) (Auto) 7.7 Eosinophils (%) (Auto) 5.3 Basophils (%) (Auto) 0.9 Neutrophils # (Auto) 6.4 Lymphocytes # (Auto) 1.7 Monocytes # (Auto) 0.7 Eosinophils # (Auto) 0.5 Basophils # (Auto) 0.1 CBC Comment DIFF FINAL Differential Comment Sodium Level 132 Potassium Level 5.2 Chloride Level 98 Carbon Dioxide Level 21.9 Anion Gap 12 Blood Urea Nitrogen 63 Creatinine 7.28 Estimat Glomerular Filtration 6 Rate Random Glucose 227 Hemoglobin A1c 8.7 Calcium Level 9.6 Total Bilirubin 0.5 Aspartate Amino Transf 3 (AST/SGOT) Alanine Aminotransferase 9 (ALT/SGPT) Alkaline Phosphatase 102 Total Protein 7.9 Albumin 3.1 Result Diagram: 02/20/17 0506 02/20/17 0506 Imaging Last Impressions Chest X-Ray 02/19/17 1600 Signed Impressions: Service Date/Time: Sunday, February 19, 2017 16:16 - CONCLUSION: Cardiomegaly, right basilar effusion and interstitial prominence suggesting some degree of congestive failure. Odilon Keenan MD Foot X-Ray 02/19/17 0000 Signed Impressions: Service Date/Time: Sunday, February 19, 2017 16:11 - CONCLUSION: Chronic changes and no evidence for acute fracture. KPatricia Pagan MD Chest Ultrasound 02/19/17 0000 Signed Impressions: Service Date/Time: Sunday, February 19, 2017 20:30 - CONCLUSION: Only a trace amount of fluid seen within the right pleural space. Mark Sánchez Jr., MD Assessment and Plan Assessment and Plan L foot pain Defer to vascular surgery. Nothing to do from podiatry standpoint. No wounds. Educated patient on importance of monitoring foot and preventing wounds to reduce infection/amputation risk L foot. Re-consult if new issues arise. Aleena Bustillos DPM Feb 20, 2017 19:19
[2017-02-20] MEDS: INSULIN DETEMIR 100 UNITS/ML VIAL SQ SCH (21:57)
[2017-02-20] MEDS: ACETAMINOPHEN/HYDROcodone 325 MG/7.5 MG TAB PO PRN (22:06)
[2017-02-21] VITALS (9 sets, daily range): BP systolic 118–195; BP diastolic 58–88; PULSE 73–100; RESP 18–20; TEMP 95–98.5; O2SAT 91–98
[2017-02-21] MEDS: ACETAMINOPHEN/HYDROcodone 325 MG/7.5 MG TAB PO PRN ×6 (02:32→22:53)
[2017-02-21] MEDS: cloNIDine HCL 0.1 MG TAB PO PRN (02:35)
[2017-02-21] MEDS: hydrALAZINE HCL 50 MG TAB PO SCH ×3 (05:25→21:19)
[2017-02-21] MEDS: INSULIN ASPART SUPPLEMENTAL SCALE SQ SCH ×4 (06:16→21:26)
[2017-02-21] MEDS: CARVEDILOL 6.25 MG TAB PO SCH ×2 (08:56→21:19)
[2017-02-21] MEDS: HEPARIN SODIUM - SQ 10,000 UNITS/ML VIAL SQ SCH ×2 (08:57→21:19)
[2017-02-21] MEDS: SODIUM CHLORIDE 0.9% FLUSH 10 ML FLUSH IV FLUSH SCH ×2 (08:57→21:20)
[2017-02-21] MEDS: FUROSEMIDE 20 MG/2 ML VIAL IV PUSH SCH (08:57)
--- NOTE | 2017-02-21 09:34 | HHI.PR ---
Subjective Remarks Follow-up hypertensive emergency/acute on chronic diastolic CHF/left lower extremity pain 02/20/17-patient seen and examined, she had hemodialysis and 5 L of fluid removed. Complained of left lower extremity pain. BP now control. 02/21/17-patient seen and examined, complains of left lower extremity pain. Denies any shortness of breath or chest pain. Objective Vitals Vital Signs Date Time Temp Pulse Resp B/P Pulse Ox O2 Delivery O2 Flow Rate FiO2 02/21/17 08:32 95.0 73 19 118/58 91 02/21/17 04:15 97.6 79 18 138/65 94 02/21/17 00:00 98.5 100 20 195/88 95 02/20/17 20:12 100 02/20/17 20:00 98.6 99 20 180/83 99 02/20/17 16:04 98.1 97 19 174/79 96 02/20/17 15:17 138/74 02/20/17 14:22 Nasal Cannula 2.00 02/20/17 12:36 100 20 139/65 97 Room Air I/O 02/20/17 02/20/17 02/20/17 02/21/17 02/21/17 02/21/17 07:00 15:00 23:00 07:00 15:00 23:00 Intake Total 240 ml 240 ml Output Total 5000 ml Balance -5000 ml 240 ml 240 ml Intake Oral 240 ml 240 ml Output Hemodialysis 5000 ml # Bowel Movements 3 2 Result Diagram: 02/20/17 0506 02/20/17 0506 Imaging Last Impressions Chest X-Ray 02/19/17 1600 Signed Impressions: Service Date/Time: Sunday, February 19, 2017 16:16 - CONCLUSION: Cardiomegaly, right basilar effusion and interstitial prominence suggesting some degree of congestive failure. Odilon Keenan MD Foot X-Ray 02/19/17 0000 Signed Impressions: Service Date/Time: Sunday, February 19, 2017 16:11 - CONCLUSION: Chronic changes and no evidence for acute fracture. Lin Pagan MD Chest Ultrasound 02/19/17 0000 Signed Impressions: Service Date/Time: Sunday, February 19, 2017 20:30 - CONCLUSION: Only a trace amount of fluid seen within the right pleural space. Mark Sánchez Jr., MD Objective Remarks GENERAL: NAD SKIN: Warm and dry. HEAD: Normocephalic. EYES: No scleral icterus. No injection or drainage. NECK: Supple, trachea midline. No JVD or lymphadenopathy. CARDIOVASCULAR: Regular rate and rhythm without murmurs, gallops, or rubs. RESPIRATORY: Breath sounds equal bilaterally. No accessory muscle use. GASTROINTESTINAL: Abdomen soft, non-tender, nondistended. MUSCULOSKELETAL: No cyanosis, or edema. Right BKA. Left lower extremity discoloration, notable purpura, warm, pulses weak. Right AV fistula positive thrill and bruit. BACK: Nontender without obvious deformity. No CVA tenderness. A/P Problem List: (1) Hypertension ICD Code: I10 Status: Acute (2) PAD (peripheral artery disease) ICD Code: I73.9 Status: Acute (3) Tobacco abuse ICD Code: Z72.0 Status: Chronic (4) ESRD (end stage renal disease) on dialysis ICD Code: N18.6 Status: Chronic (5) Diabetes ICD Code: E11.9 Status: Chronic (6) CHF exacerbation ICD Code: I50.9 Status: Acute (7) Hypertensive emergency ICD Code: I16.1 Status: Acute (8) Acute on chronic diastolic (congestive) heart failure ICD Code: I50.33 Status: Acute Assessment and Plan 46-year-old female with Acute on chronic diastolic CHF exacerbation SOB, Orthopnea - Chest x-ray showed cardiomegaly, right basilar effusion and interstitial prominence suggesting some degree of congestive failure - BNP 1250 - Fluid restriction and continue with IV Lasix - Continue on O2 nasal cannula - 2D ECHO pending, last echo cardiogram done in 2010, EF 55-60% mitral valve regurg, left atrium mildly dilated, and tricuspid with mild regurgitation - Nephrology consulted for hemodialysis, 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 - Continue with Coreg - Chest ultrasound ruled out left large pleural effusion HTN, accelerated-resolved - s/p Cardene drip -Currently on Coreg twice a day and hydralazine End-stage renal disease - Appreciate input from nephrology and continue with scheduled hemodialysis. she had HD 02/20/17 with 5L fluid removed Left lower extremity, PAD - Pain and discoloration have been noticed since 5 months ago. - X-ray showed chronic changes and no evidence for acute fracture - Pain management - Vascular imaging - CTA runoff - Podiatry input appreciated however deferred treatment to vascular surgery -Vascular surgery consult DM 2 - Insulin sliding scale, continue Basal insulin 35 units at bedtime - Monitor Accu-Cheks Tobacco abuse - Patient counseled. Hyperkalemia - s/p Kayexalate Calciphylaxis Check phosphorus, PTH and vitamin D DVT Prop Heparin CBC, BMP pending this a.m. Discharge Planning Discharge home when medically stable pending consultation from vascular surgery secondary to left lower extremity severe PAD and pain Problem Qualifiers (1) Hypertension: Qualified Code: I10 - Hypertension, unspecified type (2) Diabetes: (3) CHF exacerbation: Qualified Code: I50.9 - Acute on chronic congestive heart failure, unspecified congestive heart failure type Osvaldo Lugo MD Feb 21, 2017 09:34
[2017-02-21 10:38] LABS: ANION GAP 11 MEQ/L (5-15); BICARBONATE 26.6 MEQ/L (21.0-32.0); BLOOD UREA NITROGEN 54 MG/DL (7-18); CHLORIDE 96 MEQ/L (98-107); GLOMERULAR FILTRATION RATE 8 ML/MIN (>89); POTASSIUM 4.8 MEQ/L (3.5-5.1); SODIUM (NA) 134 MEQ/L (136-145)
[2017-02-21 10:42] LABS: ALKALINE PHOSPHATASE 82 U/L (45-117); ALT (GPT) 9 U/L (10-53); AST (GOT) 9 U/L (15-37); TOTAL BILIRUBIN ADULT 0.4 MG/DL (0.2-1.0)
--- NOTE | 2017-02-21 20:30 | HHI.NPPN ---
Subjective History of Present Illness Esrd with L foot ischemia Review of Systems General Constitutional: Fatigue Musculoskeletal MS: Pain/Stiffness Objective Data Data 02/20/17 02/21/17 19:00 07:00 Intake Total 480 ml Output Total 5000 ml Balance -5000 ml 480 ml Intake Oral 480 ml Hemodialysis 5000 ml # Bowel Movements 5 Vital Signs Date Time Temp Pulse Resp B/P Pulse Ox O2 Delivery O2 Flow Rate FiO2 02/21/17 17:13 Room Air 02/21/17 16:46 97.6 85 19 169/77 98 02/21/17 12:26 Room Air 02/21/17 12:00 97.8 73 18 138/63 94 02/21/17 08:45 74 02/21/17 08:32 95.0 73 19 118/58 91 02/21/17 04:15 97.6 79 18 138/65 94 02/21/17 00:00 98.5 100 20 195/88 95 -: 02/20/17 0506 02/21/17 0703 Physical Exam General Appearance: Well Developed Eyes Eye Exam: Pupils Equal Pulmonary Resp Exam: Clear Bilaterally Cardiology CV Exam: Regular Gastrointestinal/Abdomen GI Exam: Soft, Non-Tender Integumentary Skin Exam: Lesion(s) Extremeties Extremities Exam: Moderate Edema Assessment/Plan Problem List: (1) ESRD (end stage renal disease) on dialysis Plan: Patient is on HD M,W,F she has a problem with the left ischemic foot and needs a vascular surgery consult Continue to follow her progress add Renvela 2 TID PO4 5.8 (2) Hyperkalemia Plan: RESOLVED (3) Diabetes Plan: Continue monitor while in the hospital (4) Peripheral vascular disease Plan: Vascular surgery (5) Calciphylaxis Plan: Patient is suspected to have calciphylaxis check phosphorus, parathyroid , vitamin D Replace Vitamin D Problem Qualifiers (1) Diabetes: Gerri Gilbert MD Feb 21, 2017 20:30
[2017-02-21] MEDS: traZODone HCL 50 MG TAB PO SCH (21:19)
[2017-02-21] MEDS: INSULIN DETEMIR 100 UNITS/ML VIAL SQ SCH (21:24)
[2017-02-21] MEDS ORDERED: CHOLECALCIFEROL (VIT D3) 5000 UNIT CAP PO ONE (21:30)
[2017-02-22] VITALS (10 sets, daily range): BP systolic 147–189; BP diastolic 63–97; PULSE 76–95; RESP 14–22; TEMP 97.3–98.4; O2SAT 94–97
[2017-02-22] MEDS: hydrALAZINE HCL 50 MG TAB PO SCH ×3 (06:18→21:58)
[2017-02-22] MEDS: ACETAMINOPHEN/HYDROcodone 325 MG/7.5 MG TAB PO PRN ×4 (06:18→21:58)
[2017-02-22] MEDS: INSULIN ASPART SUPPLEMENTAL SCALE SQ SCH ×4 (06:23→21:57)
--- NOTE | 2017-02-22 07:11 | PD.VS.CON ---
History of Present Illness Chief Complaint: L foot ischemia Consult Requested by: medical svc and nephrology History of Present Illness 46 yo female with ESRD and DM, s/p R BKA, who has L foot pain for 4 months. Does have a history of trauma and old fractures that were not treated because of medical/social reasons. She notes that her foot is hurting worse but not nightly. She has no wounds. She had a R BKA a year ago and she said that her RIGHT foot started like this one is behaving at present. HD MWF via R UE access Past/Family/Social History Past Medical History CAD CHF Anxiety Depression Chronic back pain Left hip injury End-stage renal disease on hemodialysis DM Past Surgical History Knee surgery R BKA eye surgery Social History smoker Family History nc Home Medications Active Scripts Omeprazole 40 Mg Cap40 Mg PO DAILY #30 CAP Ref 5 Prov:Gi Mathews 02/20/17 Carvedilol 6.25 Mg Tab6.25 Mg PO BID #60 TAB Ref 0 Prov:Gi Mathews 02/14/17 Insulin Glargine Inj (Lantus Solostar Pen Inj)300 Unit/3 Ml Pen28 Units SQ HS # 1 BOX Ref 0 Prov:Gi Mathews 02/14/17 Reported Medications Trazodone 50 Mg Tab50 Mg PO HS #30 TAB Ref 0 02/14/17 Sertraline 100 Mg Vnj127 Mg PO DAILY #30 TAB Ref 0 02/14/17 Sevelamer Carbonate (Renvela)800 Mg Tab3,200 Mg PO QIDPC #90 TAB Ref 0 02/14/17 Oxycodone-Acetaminophen (Percocet)5-325 mg Tab1 Tab PO Q6H PRN (PAIN) Ref 0 02/14/17 B-Complex W/ C & Folic Acid (Nephro-Lory)1 Tab1 Tab PO DAILY #30 TAB Ref 0 02/14/17 Lorazepam 0.5 Mg Tab0.5 Mg PO Q6H PRN (ANXIETY) Ref 0 02/14/17 Gabapentin 600 Mg Klq030 Mg PO TID #90 TAB Ref 0 02/14/17 Lanthanum (Fosrenol)1,000 Mg Tab1,000 Mg CHEW BID #90 TAB Ref 0 02/14/17 Docusate Sodium (Colace)100 Mg [id number] Mg BID 76/17 Ascorbic Acid 500 Mg Dmg431 Mg PO BID 02/14/17 Hydroxyzine HCl 10 Mg Tab10 Mg PO Q8HR Ref 0 02/14/17 Discontinued Reported Medications Cinacalcet (Sensipar)30 Mg Tab30 Mg PO DAILY #30 TAB Ref 0 02/14/17 Escitalopram 20 Mg Tab20 Mg PO DAILY #30 TAB Ref 0 02/14/17 Doxycycline Hyclate 100 Mg Msd932 Mg PO BID Ref 0 02/14/17 Ondansetron (Zofran)4 Mg Tab4 Mg PO Q8HR PRN (NAUSEA OR VOMITING) Ref 0 02/14/17 Discontinued Scripts Omeprazole 40 Mg Cap40 Mg PO BID #30 CAP Ref 0 Prov:Gi Mathews 02/14/17 Coded Allergies: Amoxicillin (Unverified Allergy, Severe, HIVES, 02/14/17) Codeine (Verified Allergy, Severe, HYPERACTIVITY &ITCH, 02/14/17) Iodine (Verified Allergy, Severe, TOPICAL/ITCH, 02/14/17) Vancomycin (Verified Allergy, Severe, KIDNEY FAILURE, 02/14/17) Iohexol (OMNIPAQUE) (Unverified Allergy, Intermediate, HIVES, 02/14/17) Penicillin (Verified Allergy, Unknown, 02/14/17) Pork (Verified Allergy, Unknown, 02/14/17) *MDRO Multi-Drug Resistant Organism (Verified Adverse Reaction, Unknown, MRSA, 02/21/17) MRSA (multiple wounds) - 2002, 2003, 2005, 2006, 2008, 2009 Review of Systems Constitutional: DENIES: Chills Eyes: COMPLAINS OF: Vision loss Cardiovascular: COMPLAINS OF: Dyspnea on Exertion, DENIES: Syncope, Claudication Musculoskeletal: COMPLAINS OF: Joint pain, Muscle aches, Stiffness, Joint Swelling, Back pain Physical Exam Vitals/I&O Date Time Temp Pulse Resp B/P Pulse Ox O2 Delivery O2 Flow Rate FiO2 02/22/17 04:00 97.9 76 20 148/70 94 02/22/17 00:21 98.0 83 20 171/91 96 02/21/17 20:48 97 21 02/21/17 20:00 98.2 83 20 187/85 95 02/21/17 20:00 Room Air 02/21/17 17:13 Room Air 02/21/17 16:46 97.6 85 19 169/77 98 02/21/17 12:26 Room Air 02/21/17 12:00 97.8 73 18 138/63 94 02/21/17 08:45 74 02/21/17 08:32 95.0 73 19 118/58 91 Neuro: resting comfortably in bed HEENT: NC/AT; Neck: no JVD Heart: reg rate Lungs: nonlabored breathing Abdomen: moderately obese Vascular: palpable femoral pulses but no L pedal pulses R BKA healed nicely Extremities: L foot cyanotic but no jatinder tissue loss Assessment and Plan Plan ESRD and PAD, s/p R BKA and now with L foot pain, not classic CLI but should have evaluation 1. ABIs - ordered 2. Plan for L LE angiogram on Saturday Discussed with the patient and she agrees to proceed. Butch Cyr MD FACS [employer] [facility] - Heart and Vascular Surgery at [facility] [phone] Butch Cyr MD Feb 22, 2017 07:11
[2017-02-22] MEDS: CARVEDILOL 6.25 MG TAB PO SCH ×2 (08:30→21:58)
[2017-02-22] MEDS: SEVELAMER CARBONATE 800 MG TAB PO SCH ×3 (08:30→17:30)
[2017-02-22] MEDS: SERTRALINE HCL 100 MG TAB PO SCH (08:30)
[2017-02-22] MEDS: CHOLECALCIFEROL (VIT D3) 5000 UNIT CAP PO SCH (08:30)
[2017-02-22] MEDS: FUROSEMIDE 20 MG/2 ML VIAL IV PUSH SCH (08:31)
[2017-02-22] MEDS: HEPARIN SODIUM - SQ 10,000 UNITS/ML VIAL SQ SCH ×2 (08:31→21:58)
[2017-02-22] MEDS: SODIUM CHLORIDE 0.9% FLUSH 10 ML FLUSH IV FLUSH SCH ×2 (08:31→21:59)
[2017-02-22] MEDS: EPOETIN ALFA 10,000 UNITS/ML VIAL IV PRN (12:10)
[2017-02-22] MEDS: GELATIN 12 MM/7 MM FOAM TOP PRN (12:10)
--- NOTE | 2017-02-22 14:42 | HHI.PR ---
Subjective Remarks having mild pain left foot tolerating po well tolerating hemodialysis Objective Vitals Vital Signs Date Time Temp Pulse Resp B/P Pulse Ox O2 Delivery O2 Flow Rate FiO2 02/22/17 09:48 86 02/22/17 09:45 Room Air 02/22/17 08:00 97.6 77 16 147/63 95 02/22/17 07:32 95 02/22/17 04:00 97.9 76 20 148/70 94 02/22/17 00:21 98.0 83 20 171/91 96 02/21/17 20:48 97 21 02/21/17 20:03 82 02/21/17 20:00 98.2 83 20 187/85 95 02/21/17 20:00 Room Air 02/21/17 17:13 Room Air 02/21/17 16:46 97.6 85 19 169/77 98 I/O 02/21/17 02/21/17 02/21/17 02/22/17 02/22/17 02/22/17 06:59 14:59 22:59 06:59 14:59 22:59 Intake Total 240 ml 600 ml Output Total 0 ml 5000 ml Balance 240 ml 600 ml -5000 ml Intake Oral 240 ml 600 ml Output Urine Total 0 ml Hemodialysis 5000 ml # Voids 0 2 # Bowel Movements 2 2 Result Diagram: 02/20/17 0506 02/21/17 0703 Imaging Last Impressions Chest X-Ray 02/19/17 1600 Signed Impressions: Service Date/Time: Sunday, February 19, 2017 16:16 - CONCLUSION: Cardiomegaly, right basilar effusion and interstitial prominence suggesting some degree of congestive failure. Odilon Keenan MD Foot X-Ray 02/19/17 0000 Signed Impressions: Service Date/Time: Sunday, February 19, 2017 16:11 - CONCLUSION: Chronic changes and no evidence for acute fracture. Lin Pagan MD Chest Ultrasound 02/19/17 0000 Signed Impressions: Service Date/Time: Sunday, February 19, 2017 20:30 - CONCLUSION: Only a trace amount of fluid seen within the right pleural space. Mark Sánchez Jr., MD Objective Remarks awake and alert oriented x 3 forehead- calciphylaxis anicteric lungs no rales regular rhythm abdomen soft, nontender LE- left foot- cyanotic extending to lower 1/4 of the leg, warm to touch though A/P Problem List: (1) Hypertension ICD Code: I10 Status: Acute (2) PAD (peripheral artery disease) ICD Code: I73.9 Status: Acute (3) Tobacco abuse ICD Code: Z72.0 Status: Chronic (4) ESRD (end stage renal disease) on dialysis ICD Code: N18.6 Status: Chronic (5) Diabetes ICD Code: E11.9 Status: Chronic (6) CHF exacerbation ICD Code: I50.9 Status: Acute (7) Hypertensive emergency ICD Code: I16.1 Status: Acute (8) Acute on chronic diastolic (congestive) heart failure ICD Code: I50.33 Status: Acute Assessment and Plan 46-year-old female with Acute on chronic diastolic CHF exacerbation SOB, Orthopnea- symptoms improved on HD -on HD- -- - Chest x-ray showed cardiomegaly, right basilar effusion and interstitial prominence suggesting some degree of congestive failure - BNP 1250 - Fluid restriction and continue with IV Lasix - Continue on O2 nasal cannula - 2D ECHO pending, last echo cardiogram done in 2010, EF 55-60% mitral valve regurg, left atrium mildly dilated, and tricuspid with mild regurgitation -- Continue with Coreg HTN, accelerated-resolved - s/p Cardene drip -Currently on Coreg twice a day and hydralazine End-stage renal disease - Appreciate input from nephrology and continue with scheduled hemodialysis.MWF Left lower extremity, PAD - Pain and discoloration have been noticed since 5 months ago. - X-ray showed chronic changes and no evidence for acute fracture - Pain management - Vascular imaging - CTA runoff - Podiatry input appreciated however deferred treatment to vascular surgery - Dr. Goins ff- plan for angiogram Saturday DM 2 - Insulin sliding scale, continue Basal insulin 35 units at bedtime - Monitor Accu-Cheks Tobacco abuse - Patient counseled. Hyperkalemia - s/p Kayexalate Calciphylaxis Check phosphorus, PTH and vitamin D DVT Prop Heparin Discharge Planning Discharge home when medically stable pending consultation from vascular surgery secondary to left lower extremity severe PAD and pain Problem Qualifiers (1) Hypertension: Qualified Code: I10 - Hypertension, unspecified type (2) Diabetes: (3) CHF exacerbation: Qualified Code: I50.9 - Acute on chronic congestive heart failure, unspecified congestive heart failure type Lacierda,Alfea M. MD Feb 22, 2017 14:42
[2017-02-22] MEDS: diphenhydrAMINE HCL 25 MG CAP PO PRN (17:36)
--- NOTE | 2017-02-22 17:55 | RADRPT ---
EXAM DATE/TIME: 02/22/2017 00:00 [place] COMPARISON: No previous studies available for comparison. INDICATIONS : CHF, SOB, HTN, ESRD, LLE Discoloration TECHNIQUE: Four-cuff ankle and brachial pressures were obtained. Pulse cuff waveform tracings of the ankles were recorded, and ankle-brachial indices were calculated. PRESSURES (mmHg): Brachial (arm): Right NO BP OR STICKS Left 165 Ankle: Right BKA Left 141 RANI: Right BKA Left 0.85 TBI: Right BKA Left 0.00 CONCLUSION: Limited evaluation since the right side could not be measured and there is mild vascular occlusive di sease on the left side. Lin Pagan MD on February 22, 2017 at 17:50 Board Certified Radiologist. This report was verified electronically.
--- NOTE | 2017-02-22 19:23 | HHI.NPPN ---
Subjective History of Present Illness Esrd with L foot ischemia Review of Systems General Constitutional: Fatigue Musculoskeletal MS: Pain/Stiffness Objective Data Data 02/21/17 02/22/17 19:00 07:00 Intake Total 600 ml Output Total 0 ml Balance 600 ml Intake Oral 600 ml Output Urine Total 0 ml # Voids 0 2 # Bowel Movements 2 Vital Signs Date Time Temp Pulse Resp B/P Pulse Ox O2 Delivery O2 Flow Rate FiO2 02/22/17 17:31 97 21 02/22/17 16:00 98.4 95 22 189/97 97 02/22/17 11:15 98.3 95 22 153/70 96 02/22/17 09:48 86 02/22/17 09:45 Room Air 02/22/17 08:00 97.6 77 16 147/63 95 02/22/17 07:32 95 02/22/17 04:00 97.9 76 20 148/70 94 02/22/17 00:21 98.0 83 20 171/91 96 02/21/17 20:48 97 21 02/21/17 20:03 82 02/21/17 20:00 98.2 83 20 187/85 95 02/21/17 20:00 Room Air -: 02/20/17 0506 02/21/17 0703 Physical Exam General Appearance: Well Developed Eyes Eye Exam: Pupils Equal Pulmonary Resp Exam: Clear Bilaterally Cardiology CV Exam: Regular Gastrointestinal/Abdomen GI Exam: Soft, Non-Tender Integumentary Skin Exam: Lesion(s) Extremeties Extremities Exam: Moderate Edema Assessment/Plan Problem List: (1) ESRD (end stage renal disease) on dialysis Plan: Patient is on HD M,W,F she has a problem with the left ischemic foot vascular surgery consult appreciated hemodialysis was done 5 L removed add Renvela 2 TID (2) Hyperkalemia Plan: RESOLVED (3) Diabetes Plan: Continue monitor while in the hospital (4) Peripheral vascular disease Plan: Vascular surgery (5) Calciphylaxis Plan: Patient is suspected to have calciphylaxis check phosphorus, parathyroid , vitamin D Replace Vitamin D Problem Qualifiers (1) Diabetes: Gerri Gilbert MD Feb 22, 2017 19:23
[2017-02-22] MEDS: INSULIN DETEMIR 100 UNITS/ML VIAL SQ SCH (21:57)
[2017-02-22] MEDS: traZODone HCL 50 MG TAB PO SCH (21:57)
[2017-02-23] VITALS (7 sets, daily range): BP systolic 122–173; BP diastolic 57–83; PULSE 77–83; RESP 16–22; TEMP 97.9–98.3; O2SAT 92–97
[2017-02-23] MEDS: ACETAMINOPHEN/HYDROcodone 325 MG/7.5 MG TAB PO PRN ×5 (04:59→21:09)
[2017-02-23] MEDS: hydrALAZINE HCL 50 MG TAB PO SCH ×3 (05:00→21:09)
[2017-02-23] MEDS: INSULIN ASPART SUPPLEMENTAL SCALE SQ SCH ×4 (06:04→21:08)
[2017-02-23] MEDS: CHOLECALCIFEROL (VIT D3) 5000 UNIT CAP PO SCH (08:45)
[2017-02-23] MEDS: CARVEDILOL 6.25 MG TAB PO SCH ×2 (08:46→21:09)
[2017-02-23] MEDS: SERTRALINE HCL 100 MG TAB PO SCH (08:46)
[2017-02-23] MEDS: SEVELAMER CARBONATE 800 MG TAB PO SCH ×3 (08:47→17:33)
[2017-02-23] MEDS: FUROSEMIDE 20 MG/2 ML VIAL IV PUSH SCH (08:47)
[2017-02-23] MEDS: HEPARIN SODIUM - SQ 10,000 UNITS/ML VIAL SQ SCH ×2 (08:48→21:09)
[2017-02-23] MEDS: SODIUM CHLORIDE 0.9% FLUSH 10 ML FLUSH IV FLUSH SCH ×2 (08:49→21:00)
--- NOTE | 2017-02-23 12:40 | HHI.PR ---
Subjective Remarks minimal pain foot tolerating po well no chest pains or shortness of breath Objective Vitals Vital Signs Date Time Temp Pulse Resp B/P Pulse Ox O2 Delivery O2 Flow Rate FiO2 02/23/17 08:00 97.9 83 20 153/69 94 02/23/17 07:15 Room Air 02/23/17 04:00 98.1 80 16 165/73 92 02/23/17 00:00 98.3 82 16 160/67 97 02/22/17 20:00 Room Air 02/22/17 20:00 97.3 85 14 174/73 97 02/22/17 17:31 97 21 02/22/17 16:00 98.4 95 22 189/97 97 I/O 02/22/17 02/22/17 02/22/17 02/23/17 02/23/17 02/23/17 07:00 15:00 23:00 07:00 15:00 23:00 Intake Total 480 ml 120 ml 360 ml Output Total 5000 ml Balance -4520 ml 120 ml 360 ml Intake Oral 480 ml 120 ml 360 ml Hemodialysis 5000 ml # Voids 1 0 0 # Bowel Movements 1 0 0 Result Diagram: 02/20/17 0506 02/21/17 0703 Imaging Last Impressions Chest X-Ray 02/19/17 1600 Signed Impressions: Service Date/Time: Sunday, February 19, 2017 16:16 - CONCLUSION: Cardiomegaly, right basilar effusion and interstitial prominence suggesting some degree of congestive failure. Odilon Keenan MD Foot X-Ray 02/19/17 0000 Signed Impressions: Service Date/Time: Sunday, February 19, 2017 16:11 - CONCLUSION: Chronic changes and no evidence for acute fracture. Lin Pagan MD Chest Ultrasound 02/19/17 0000 Signed Impressions: Service Date/Time: Sunday, February 19, 2017 20:30 - CONCLUSION: Only a trace amount of fluid seen within the right pleural space. Mark Sánchez Jr., MD Objective Remarks awake and alert oriented x 3 forehead- calciphylaxis anicteric lungs no rales regular rhythm abdomen soft, nontender LE- left foot-mottling of the skin, warm to touch A/P Problem List: (1) Hypertension ICD Code: I10 Status: Acute (2) PAD (peripheral artery disease) ICD Code: I73.9 Status: Acute (3) Tobacco abuse ICD Code: Z72.0 Status: Chronic (4) ESRD (end stage renal disease) on dialysis ICD Code: N18.6 Status: Chronic (5) Diabetes ICD Code: E11.9 Status: Chronic (6) CHF exacerbation ICD Code: I50.9 Status: Acute (7) Hypertensive emergency ICD Code: I16.1 Status: Acute (8) Acute on chronic diastolic (congestive) heart failure ICD Code: I50.33 Status: Acute Assessment and Plan 46-year-old female with Acute on chronic diastolic CHF exacerbation- clinically improved SOB, Orthopnea- symptoms improved on HD -on HD- -- - Chest x-ray showed cardiomegaly, right basilar effusion and interstitial prominence suggesting some degree of congestive failure - BNP 1250 - Fluid restriction and continue with IV Lasix - Continue on O2 nasal cannula - 2D ECHO pending, last echo cardiogram done in 2010, EF 55-60% mitral valve regurg, left atrium mildly dilated, and tricuspid with mild regurgitation -- Continue with Coreg HTN, accelerated-resolved- improved with ongoing HD- continue to monitor and adjust - s/p Cardene drip -Currently on Coreg twice a day and hydralazine End-stage renal disease - Appreciate input from nephrology and continue with scheduled hemodialysis.MWF Left lower extremity, PAD - Pain and discoloration have been noticed since 5 months ago. - X-ray showed chronic changes and no evidence for acute fracture - Pain management - Vascular imaging - CTA runoff - Podiatry input appreciated however deferred treatment to vascular surgery - Dr. Cyr ff- plan for angiogram Saturday DM 2 - Insulin sliding scale, continue Basal insulin 35 units at bedtime - Monitor Accu-Cheks- improve readings- adjust cautiously Tobacco abuse - Patient counseled. Hyperkalemia - s/p Kayexalate Calciphylaxis Check phosphorus, PTH and vitamin D DVT Prop Heparin Discharge Planning Discharge home when medically stable pending consultation from vascular surgery secondary to left lower extremity severe PAD and pain Problem Qualifiers (1) Hypertension: Qualified Code: I10 - Hypertension, unspecified type (2) Diabetes: (3) CHF exacerbation: Qualified Code: I50.9 - Acute on chronic congestive heart failure, unspecified congestive heart failure type Jagdish Lozano MD Feb 23, 2017 12:40
--- NOTE | 2017-02-23 16:01 | HHI.NPPN ---
Subjective History of Present Illness Esrd with L foot ischemia Review of Systems General Constitutional: Fatigue Musculoskeletal MS: Pain/Stiffness Objective Data Data 02/22/17 02/23/17 18:59 06:59 Intake Total 480 ml 480 ml Output Total 5000 ml Balance -4520 ml 480 ml Intake Oral 480 ml 480 ml Hemodialysis 5000 ml # Voids 1 0 # Bowel Movements 1 0 Vital Signs Date Time Temp Pulse Resp B/P Pulse Ox O2 Delivery O2 Flow Rate FiO2 02/23/17 12:00 98.1 82 20 122/57 93 02/23/17 08:00 81 02/23/17 08:00 97.9 83 20 153/69 94 02/23/17 07:15 Room Air 02/23/17 04:00 98.1 80 16 165/73 92 02/23/17 00:00 98.3 82 16 160/67 97 02/22/17 20:00 Room Air 02/22/17 20:00 97.3 85 14 174/73 97 02/22/17 17:31 97 21 -: 02/20/17 0506 02/21/17 0703 Physical Exam General Appearance: Well Developed Eyes Eye Exam: Pupils Equal Pulmonary Resp Exam: Clear Bilaterally Cardiology CV Exam: Regular Gastrointestinal/Abdomen GI Exam: Soft, Non-Tender Integumentary Skin Exam: Lesion(s) Extremeties Extremities Exam: Moderate Edema Assessment/Plan Problem List: (1) ESRD (end stage renal disease) on dialysis Plan: Patient is on HD M,W,F she has a problem with the left ischemic foot vascular surgery consult appreciated hemodialysis yesterday 5 L removed on Renvela 2 TID (2) Hyperkalemia Plan: RESOLVED (3) Diabetes Plan: Continue monitor while in the hospital (4) Peripheral vascular disease Plan: Vascular surgery (5) Calciphylaxis Plan: Patient is suspected to have calciphylaxis check phosphorus, parathyroid , vitamin D Replace Vitamin D Problem Qualifiers (1) Diabetes: Gerri Gilbert MD Feb 23, 2017 16:01
[2017-02-23] MEDS: INSULIN DETEMIR 100 UNITS/ML VIAL SQ SCH (21:09)
[2017-02-23] MEDS: traZODone HCL 50 MG TAB PO SCH (21:09)
[2017-02-24] VITALS (9 sets, daily range): BP systolic 139–196; BP diastolic 63–80; PULSE 69–77; RESP 16–22; TEMP 97.2–98.2; O2SAT 93–99
[2017-02-24] MEDS: hydrALAZINE HCL 50 MG TAB PO SCH ×3 (05:28→22:05)
[2017-02-24] MEDS: ACETAMINOPHEN/HYDROcodone 325 MG/7.5 MG TAB PO PRN ×5 (05:30→23:22)
[2017-02-24] MEDS: INSULIN ASPART SUPPLEMENTAL SCALE SQ SCH ×4 (06:32→21:00)
[2017-02-24] MEDS: CHOLECALCIFEROL (VIT D3) 5000 UNIT CAP PO SCH (09:29)
[2017-02-24] MEDS: SEVELAMER CARBONATE 800 MG TAB PO SCH ×3 (09:30→17:33)
[2017-02-24] MEDS: HEPARIN SODIUM - SQ 10,000 UNITS/ML VIAL SQ SCH ×2 (09:30→22:04)
[2017-02-24] MEDS: FUROSEMIDE 20 MG/2 ML VIAL IV PUSH SCH (09:30)
[2017-02-24] MEDS: SERTRALINE HCL 100 MG TAB PO SCH (09:30)
[2017-02-24] MEDS: CARVEDILOL 6.25 MG TAB PO SCH ×2 (09:30→22:05)
[2017-02-24] MEDS: SODIUM CHLORIDE 0.9% FLUSH 10 ML FLUSH IV FLUSH SCH ×2 (09:33→22:05)
--- NOTE | 2017-02-24 10:23 | HHI.PR ---
Subjective Remarks no complains wanting to eat [ain controlled Objective Vitals Vital Signs Date Time Temp Pulse Resp B/P Pulse Ox O2 Delivery O2 Flow Rate FiO2 02/24/17 10:00 97 21 02/24/17 08:00 97.9 73 20 141/63 94 02/24/17 05:00 97.2 77 22 139/67 96 02/24/17 00:00 97.8 74 20 143/77 95 02/23/17 21:05 21 02/23/17 20:00 82 22 159/69 96 02/23/17 20:00 Nasal Cannula 2.00 02/23/17 19:56 77 02/23/17 16:00 98.1 81 20 173/83 97 02/23/17 12:00 98.1 82 20 122/57 93 I/O 02/23/17 02/23/17 02/23/17 02/24/17 02/24/17 02/24/17 07:00 15:00 23:00 07:00 15:00 23:00 Intake Total 360 ml 600 ml 300 ml Balance 360 ml 600 ml 300 ml Intake Oral 360 ml 600 ml 300 ml # Voids 0 0 0 # Bowel Movements 0 1 0 Result Diagram: 02/20/17 0506 02/21/17 0703 Imaging Last Impressions Chest X-Ray 02/19/17 1600 Signed Impressions: Service Date/Time: Sunday, February 19, 2017 16:16 - CONCLUSION: Cardiomegaly, right basilar effusion and interstitial prominence suggesting some degree of congestive failure. Odilon Keenan MD Foot X-Ray 02/19/17 0000 Signed Impressions: Service Date/Time: Sunday, February 19, 2017 16:11 - CONCLUSION: Chronic changes and no evidence for acute fracture. Lin Pagan MD Chest Ultrasound 02/19/17 0000 Signed Impressions: Service Date/Time: Sunday, February 19, 2017 20:30 - CONCLUSION: Only a trace amount of fluid seen within the right pleural space. Mark Sánchez Jr., MD Objective Remarks awake and alert oriented x 3 forehead- calciphylaxis anicteric lungs no rales regular rhythm abdomen soft, nontender LE- left foot-slight mottling of the skin, digits no cyanotic , warm to touch right BKA A/P Problem List: (1) Hypertension ICD Code: I10 Status: Acute (2) PAD (peripheral artery disease) ICD Code: I73.9 Status: Acute (3) Tobacco abuse ICD Code: Z72.0 Status: Chronic (4) ESRD (end stage renal disease) on dialysis ICD Code: N18.6 Status: Chronic (5) Diabetes ICD Code: E11.9 Status: Chronic (6) CHF exacerbation ICD Code: I50.9 Status: Acute (7) Hypertensive emergency ICD Code: I16.1 Status: Acute (8) Acute on chronic diastolic (congestive) heart failure ICD Code: I50.33 Status: Acute Assessment and Plan 46-year-old female with Acute on chronic diastolic CHF exacerbation SOB, Orthopnea- symptoms improved on HD -on HD- -- - Chest x-ray showed cardiomegaly, right basilar effusion and interstitial prominence suggesting some degree of congestive failure - BNP 1250 - Fluid restriction and continue with IV Lasix - Continue on O2 nasal cannula - 2D ECHO pending, last echo cardiogram done in 2010, EF 55-60% mitral valve regurg, left atrium mildly dilated, and tricuspid with mild regurgitation -- Continue with Coreg Left lower extremity, PAD -Vascular ff- for angiogram in am - Pain and discoloration have been noticed since 5 months ago. - X-ray showed chronic changes and no evidence for acute fracture - Pain management - Podiatry input appreciated however deferred treatment to vascular surgery - HTN, accelerated-resolved - s/p Cardene drip -Currently on Coreg twice a day and hydralazine End-stage renal disease - Appreciate input from nephrology and continue with scheduled hemodialysis.MWF DM 2 - Insulin sliding scale, continue Basal insulin 35 units at bedtime - Monitor Accu-Cheks Tobacco abuse - Patient counseled. Hyperkalemia - s/p Kayexalate Calciphylaxis Check phosphorus, PTH and vitamin D DVT Prop Heparin Discharge Planning Discharge home when medically stable pending consultation from vascular surgery secondary to left lower extremity severe PAD and pain Problem Qualifiers (1) Hypertension: Qualified Code: I10 - Hypertension, unspecified type (2) Diabetes: (3) CHF exacerbation: Qualified Code: I50.9 - Acute on chronic congestive heart failure, unspecified congestive heart failure type Jagdish Lozano MD Feb 24, 2017 10:23
--- NOTE | 2017-02-24 14:55 | HHI.NPPN ---
Subjective History of Present Illness Esrd with L foot ischemia Review of Systems General Constitutional: Fatigue Musculoskeletal MS: Pain/Stiffness Objective Data Data 02/23/17 02/24/17 19:00 07:00 Intake Total 600 ml 300 ml Balance 600 ml 300 ml Intake Oral 600 ml 300 ml # Voids 0 0 # Bowel Movements 1 0 Vital Signs Date Time Temp Pulse Resp B/P Pulse Ox O2 Delivery O2 Flow Rate FiO2 02/24/17 12:00 98.1 72 20 150/67 93 02/24/17 10:00 97 21 02/24/17 08:00 97.9 73 20 141/63 94 02/24/17 05:00 97.2 77 22 139/67 96 02/24/17 00:00 97.8 74 20 143/77 95 02/23/17 21:05 21 02/23/17 20:00 82 22 159/69 96 02/23/17 20:00 Nasal Cannula 2.00 02/23/17 19:56 77 02/23/17 16:00 98.1 81 20 173/83 97 -: 02/20/17 0506 02/21/17 0703 Physical Exam General Appearance: Well Developed Eyes Eye Exam: Pupils Equal Pulmonary Resp Exam: Clear Bilaterally Cardiology CV Exam: Regular Gastrointestinal/Abdomen GI Exam: Soft, Non-Tender Integumentary Skin Exam: Lesion(s) Extremeties Extremities Exam: Moderate Edema Assessment/Plan Problem List: (1) ESRD (end stage renal disease) on dialysis Plan: Patient is on HD M,W,F she has a problem with the left ischemic foot vascular surgery consult appreciated hemodialysis yesterday 5 L removed on Renvela 2 TID Start Sensipar 30 mg (2) Hyperkalemia Plan: RESOLVED (3) Diabetes Plan: Continue monitor while in the hospital (4) Peripheral vascular disease Plan: Vascular surgery Problem Qualifiers (1) Diabetes: Gerri Gilbert MD Feb 24, 2017 14:54
[2017-02-24] MEDS: CINACALCET HYDROCHLORIDE 30 MG TAB PO SCH (17:33)
[2017-02-24] MEDS: traZODone HCL 50 MG TAB PO SCH (22:04)
[2017-02-24] MEDS: INSULIN DETEMIR 100 UNITS/ML VIAL SQ SCH (22:15)
[2017-02-25] VITALS (7 sets, daily range): BP systolic 153–188; BP diastolic 67–86; PULSE 72–93; RESP 18–20; TEMP 97.6–98.6; O2SAT 92–97
[2017-02-25] MEDS: predniSONE 50 MG TAB PO SCH ×3 (02:43→14:00)
[2017-02-25] MEDS: hydrALAZINE HCL 50 MG TAB PO SCH ×3 (05:37→22:14)
[2017-02-25] MEDS: ACETAMINOPHEN/HYDROcodone 325 MG/7.5 MG TAB PO PRN ×3 (05:37→22:15)
[2017-02-25] MEDS: INSULIN ASPART SUPPLEMENTAL SCALE SQ SCH ×4 (05:41→22:32)
[2017-02-25 06:42] LABS: BASOPHIL # 0.1 TH/MM3 (0-0.2); BASOPHIL % 1.6 % (0.0-2.0); EOSINOPHIL # 0.3 TH/MM3 (0-0.4); EOSINOPHIL % 4.1 % (0.0-4.0); HEMATOCRIT 28.5 % (35.0-46.0); HEMO FLAGS DIFF FINAL; LYMPH % 17.2 % (9.0-44.0); LYMPHOCYTE # 1.2 TH/MM3 (1.0-4.8); MEAN CELL VOLUME 95.7 FL (80.0-100.0); MEAN CORPUSCULAR HEMOGLOBIN 31.7 PG (27.0-34.0); MEAN CORPUSCULAR HGB CONC 33.1 % (32.0-36.0); MONO % 6.5 % (0.0-8.0); NEUT % 70.6 % (16.0-70.0); PLATELET COUNT 253 TH/MM3 (150-450); RED BLOOD COUNT 2.97 MIL/MM3 (4.00-5.30)
[2017-02-25 07:04] LABS: BICARBONATE 24.9 MEQ/L (21.0-32.0)
[2017-02-25 07:08] LABS: POTASSIUM 6.9 MEQ/L (3.5-5.1)
[2017-02-25] MEDS: SEVELAMER CARBONATE 800 MG TAB PO SCH ×3 (08:00→17:47)
[2017-02-25] MEDS: SODIUM CHLORIDE 0.9% FLUSH 10 ML FLUSH IV FLUSH SCH ×2 (08:21→22:17)
[2017-02-25] MEDS: HEPARIN SODIUM - SQ 10,000 UNITS/ML VIAL SQ SCH ×2 (08:22→22:16)
[2017-02-25] MEDS: FUROSEMIDE 20 MG/2 ML VIAL IV PUSH SCH (08:24)
[2017-02-25] MEDS: CINACALCET HYDROCHLORIDE 30 MG TAB PO SCH (08:54)
[2017-02-25] MEDS: CHOLECALCIFEROL (VIT D3) 5000 UNIT CAP PO SCH (09:00)
[2017-02-25] MEDS: SERTRALINE HCL 100 MG TAB PO SCH (09:00)
--- NOTE | 2017-02-25 10:37 | HHI.NPPN ---
Subjective History of Present Illness Esrd with L foot ischemia Review of Systems General Constitutional: Fatigue Musculoskeletal MS: Pain/Stiffness Objective Data Data 02/24/17 02/25/17 19:00 07:00 Intake Total 480 ml 240 ml Output Total 0 ml Balance 480 ml 240 ml Intake Oral 480 ml 240 ml Output Urine Total 0 ml # Voids 0 0 # Bowel Movements 1 Vital Signs Date Time Temp Pulse Resp B/P Pulse Ox O2 Delivery O2 Flow Rate FiO2 02/25/17 08:00 97.6 78 18 94 02/25/17 04:00 98.3 72 18 161/72 95 02/25/17 00:00 97.9 73 18 153/67 97 02/24/17 20:00 97.6 72 16 169/80 98 02/24/17 20:00 75 02/24/17 20:00 Nasal Cannula 2.00 21 02/24/17 16:50 99 21 02/24/17 16:00 98.2 71 20 171/73 99 02/24/17 12:00 98.1 72 20 150/67 93 -: 02/25/17 0515 02/25/17 0515 Physical Exam General Appearance: Well Developed Eyes Eye Exam: Pupils Equal Pulmonary Resp Exam: Clear Bilaterally Cardiology CV Exam: Regular Gastrointestinal/Abdomen GI Exam: Soft, Non-Tender Integumentary Skin Exam: Lesion(s) Extremeties Extremities Exam: Moderate Edema Assessment/Plan Problem List: (1) ESRD (end stage renal disease) on dialysis Plan: Patient is on HD M,W,F she has a problem with the left ischemic foot vascular surgery consult appreciated hemodialysis proceedings noted 7 L off today ask her to limit fluids on Renvela 2 TID Started Sensipar 30 mg (2) Hyperkalemia Plan: 6.9 today on dialysis 1 k bath (3) Diabetes Plan: Continue monitor while in the hospital (4) Peripheral vascular disease Plan: Vascular surgery Problem Qualifiers (1) Diabetes: Gerri Gilbert MD Feb 25, 2017 10:37
[2017-02-25] MEDS: EPOETIN ALFA 10,000 UNITS/ML VIAL IV PRN (11:50)
[2017-02-25] MEDS: diphenhydrAMINE HCL 25 MG CAP PO PRN (12:25)
[2017-02-25] MEDS ORDERED: MIDAZOLAM HCL 5 MG/ML VIAL (1 ML) ONE ×2 (12:44→13:14)
[2017-02-25] MEDS ORDERED: HEPARIN SODIUM - IV 10,000 UNITS/10 ML VIAL ONE (12:44)
[2017-02-25] MEDS ORDERED: IOHEXOL 300 MG/ML 50 ML BTL (for RAD DIAG) OTHER ONE (13:02)
[2017-02-25] MEDS ORDERED: hydrALAZINE HCL 20 MG/ML VIAL ONE (13:45)
--- NOTE | 2017-02-25 13:56 | HHI.PR ---
Immediate Post Op Note Procedure Date: Feb 25, 2017 Pre Op Diagnosis: PAD, L LE pain Post Op Diagnosis: PAD, L LE pain Surgeon: Butch Cyr Supervisor Hand Silvering(s): none Procedure: 1. Aortogram w/ L LE angiogram 2. L popliteal RECLAMATION KETTLE TENDER (4mm DCB) 3. 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
[2017-02-25] MEDS ORDERED: CLOPIDOGREL 75 MG TAB PO ONE (14:00)
[2017-02-25] MEDS: CARVEDILOL 6.25 MG TAB PO SCH ×2 (14:30→22:14)
--- NOTE | 2017-02-25 16:26 | HHI.PR ---
Subjective Remarks doing very well back from angiogram underwent SAMPLE WASHER hungry, no pain,nausea or vomiting Objective Vitals Vital Signs Date Time Temp Pulse Resp B/P Pulse Ox O2 Delivery O2 Flow Rate FiO2 02/25/17 15:42 97 Room Air 02/25/17 08:03 75 02/25/17 08:00 97.6 78 18 94 02/25/17 07:45 Nasal Cannula 2.00 02/25/17 04:00 98.3 72 18 161/72 95 02/25/17 00:00 97.9 73 18 153/67 97 02/24/17 20:00 97.6 72 16 169/80 98 02/24/17 20:00 75 02/24/17 20:00 Nasal Cannula 2.00 21 02/24/17 16:50 99 21 I/O 02/24/17 02/24/17 02/24/17 02/25/17 02/25/17 02/25/17 07:00 15:00 23:00 07:00 15:00 23:00 Intake Total 480 ml 240 ml 0 ml Output Total 0 ml 6000 ml Balance 480 ml 240 ml 0 ml -6000 ml Intake Oral 480 ml 240 ml 0 ml Output Urine Total 0 ml Hemodialysis 6000 ml # Voids 0 0 # Bowel Movements 1 Result Diagram: 02/25/17 0515 02/25/17 0515 Imaging Last Impressions Chest X-Ray 02/19/17 1600 Signed Impressions: Service Date/Time: Sunday, February 19, 2017 16:16 - CONCLUSION: Cardiomegaly, right basilar effusion and interstitial prominence suggesting some degree of congestive failure. Odilon Keenan MD Foot X-Ray 02/19/17 0000 Signed Impressions: Service Date/Time: Sunday, February 19, 2017 16:11 - CONCLUSION: Chronic changes and no evidence for acute fracture. Lin Pagan MD Chest Ultrasound 02/19/17 0000 Signed Impressions: Service Date/Time: Sunday, February 19, 2017 20:30 - CONCLUSION: Only a trace amount of fluid seen within the right pleural space. Mark Sánchez Jr., MD Objective Remarks awake and alert oriented x 3 forehead- calciphylaxis anicteric lungs no rales regular rhythm abdomen soft, nontender LE- left foot-slight mottling of the skin, digits no cyanotic , warm to touch right BKA Procedures 7/17- successful SAMPLE WASHER of peroneal artery and popliteal artery. left A/P Problem List: (1) Hypertension ICD Code: I10 Status: Acute (2) PAD (peripheral artery disease) ICD Code: I73.9 Status: Acute (3) Tobacco abuse ICD Code: Z72.0 Status: Chronic (4) ESRD (end stage renal disease) on dialysis ICD Code: N18.6 Status: Chronic (5) Diabetes ICD Code: E11.9 Status: Chronic (6) CHF exacerbation ICD Code: I50.9 Status: Acute (7) Hypertensive emergency ICD Code: I16.1 Status: Acute (8) Acute on chronic diastolic (congestive) heart failure ICD Code: I50.33 Status: Acute Assessment and Plan 46-year-old female with Acute on chronic diastolic CHF exacerbation - SOB, Orthopnea- symptoms improved on HD -on HD- -- - Renal ff - Continue on O2 nasal cannula - 2D ECHO pending, last echo cardiogram done in 2010, EF 55-60% mitral valve regurg, left atrium mildly dilated, and tricuspid with mild regurgitation -- Continue with Coreg acute PAD S/P SAMPLE WASHER of left peroneal and left popliteal artery 02/25 -Vascular ff. -Plavix - HTN, accelerated- IMproved readings - s/p Cardene drip -Currently on Coreg twice a day and hydralazine End-stage renal disease Calciphylaxis HYperkalemia- resolved - Appreciate input from nephrology and continue with scheduled hemodialysis.MWF DM 2 - Insulin sliding scale, continue Basal insulin 35 units at bedtime - Monitor Accu-Cheks restart diet post procedure Tobacco abuse - Patient counseled. DVT Prop Heparin Discharge Planning Discharge home when medically stable Problem Qualifiers (1) Hypertension: Qualified Code: I10 - Hypertension, unspecified type (2) Diabetes: (3) CHF exacerbation: Qualified Code: I50.9 - Acute on chronic congestive heart failure, unspecified congestive heart failure type Jagdish Lozano MD Feb 25, 2017 16:25 Jagdish Lozano MD Feb 25, 2017 16:25
[2017-02-25] MEDS: cloNIDine HCL 0.1 MG TAB PO PRN (16:57)
[2017-02-25] MEDS: traZODone HCL 50 MG TAB PO SCH (22:20)
[2017-02-25] MEDS: INSULIN DETEMIR 100 UNITS/ML VIAL SQ SCH (22:31)
[2017-02-26] VITALS (9 sets, daily range): BP systolic 132–178; BP diastolic 61–77; PULSE 77–94; RESP 18–20; TEMP 98–98.3; O2SAT 92–96
[2017-02-26] MEDS: hydrALAZINE HCL 50 MG TAB PO SCH ×3 (06:47→21:18)
[2017-02-26] MEDS: ACETAMINOPHEN/HYDROcodone 325 MG/7.5 MG TAB PO PRN ×4 (06:47→21:18)
[2017-02-26] MEDS: INSULIN ASPART SUPPLEMENTAL SCALE SQ SCH ×4 (06:52→21:30)
--- NOTE | 2017-02-26 07:47 | PD.VS.PN ---
Subjective Subjective/Hospital Course POD#1 s/p L popliteal and peroneal artery ELECTRICIAN HELPER POWERHOUSE doing well no complaints no LEFT foot pain RIGHT groin access site ok Objective Vitals/I&O Date Time Temp Pulse Resp B/P Pulse Ox O2 Delivery O2 Flow Rate FiO2 02/26/17 04:00 98.0 83 20 132/62 95 02/26/17 00:00 98.2 88 20 178/77 95 02/25/17 20:30 Nasal Cannula 2.00 21 02/25/17 20:30 85 02/25/17 20:30 85 02/25/17 20:00 98.6 85 20 159/74 92 02/25/17 16:00 98.1 93 18 188/86 96 02/25/17 15:42 97 Room Air 02/25/17 08:03 75 02/25/17 08:00 97.6 78 18 94 Physical Exam R groin soft, NT L foot ok Assessment and Plan Plan ESRD and PAD, s/p R BKA and POD#1 s/p L popliteal ELECTRICIAN HELPER POWERHOUSE and peroneal ELECTRICIAN HELPER POWERHOUSE 1. Plavix daily 2. ok to d/c from vascular surgery standpoint 3. Will arrange f/u in 2-3 weeks in my clinic with ABIs Butch Cyr MD FACS RPVI programming equipment operator [facility] - Heart and Vascular Surgery at [facility] [phone] Butch Cyr MD Feb 26, 2017 07:47
[2017-02-26] MEDS: SEVELAMER CARBONATE 800 MG TAB PO SCH ×3 (08:28→16:32)
[2017-02-26] MEDS: SERTRALINE HCL 100 MG TAB PO SCH (08:29)
[2017-02-26] MEDS: CARVEDILOL 6.25 MG TAB PO SCH ×2 (08:29→21:18)
[2017-02-26] MEDS: HEPARIN SODIUM - SQ 10,000 UNITS/ML VIAL SQ SCH ×2 (08:29→21:17)
[2017-02-26] MEDS: CHOLECALCIFEROL (VIT D3) 5000 UNIT CAP PO SCH (08:29)
[2017-02-26] MEDS: CINACALCET HYDROCHLORIDE 30 MG TAB PO SCH (08:29)
[2017-02-26] MEDS: FUROSEMIDE 20 MG/2 ML VIAL IV PUSH SCH (08:29)
[2017-02-26] MEDS: SODIUM CHLORIDE 0.9% FLUSH 10 ML FLUSH IV FLUSH SCH ×2 (08:30→21:18)
--- NOTE | 2017-02-26 09:37 | MP ---
cc: SILVERIO CYR MD DATE OF SURGERY: 02/25/2017 PREOPERATIVE DIAGNOSIS Left lower extremity rest pain, peripheral arterial occlusive disease. POSTOPERATIVE DIAGNOSIS Left lower extremity rest pain, peripheral arterial occlusive disease. PROCEDURE 1. Aortogram and left lower extremity angiogram. 2. Left popliteal angioplasty with 4 mm drug-coated balloon. 3. Left peroneal artery angioplasty with 3 mm balloon. ATTENDING SURGEON Silverio Cyr ANESTHESIA Local with sedation. INDICATIONS Mrs. Laguerre is a 46-year-old lady who has peripheral arterial occlusive disease and end-stage renal disease. She has a history of right below-knee amputation and new left foot rest pain. She is taken to the operating room for angiographic evaluation and potential treatment. There is no prior catheter-based imaging for my review. DESCRIPTION OF PROCEDURE Informed consent was obtained from the patient. She was taken to the operating room and placed supine on the operating table. An appropriate timeout was taken to ensure the patient's identity, operative site and planned procedure. No antibiotics were necessary as this was a clean procedure without planned implantation of any foreign object. Everyone in the room agreed with the timeout and we proceeded. Her bilateral groins were prepped and draped. The right groin was anesthetized with 1% lidocaine. A 21-gauge micropuncture needle was used to access the right common femoral artery. This was exchanged using Seldinger technique with a micropuncture sheath through which a 0.035 Glidewire was introduced. The micropuncture sheath was exchanged for a 5-Togolese sheath and the VCF catheter was placed over the wire and through the sheath. An aortogram, pelvic arteriogram was obtained. The Glidewire was navigated down to the left common femoral artery and the VCF catheter was advanced over this and a left lower extremity arteriogram was obtained. The patient was systemically heparinized with 5000 units of IV heparin. A 0.035 Petersen wire was introduced and passed down the mid SFA. The VCF catheter and 5-Togolese sheath were removed and a 6-Togolese, 90 cm sheath was introduced. The Petersen wire was then advanced down to the below-knee popliteal artery and the below-knee popliteal artery was angioplastied with a 4 mm drug-coated balloon with an excellent technical result without any recoil or extravasation. The balloon catheter was then advanced down to the below knee popliteal artery and the Petersen was exchanged for a 0.014 INTEGRATIVE MEDICINE PHYSICIAN which was navigated down to the distal peroneal artery. The balloon catheter was removed and a 3 x 40 balloon was then inserted and used to angioplasty the high-grade peroneal artery stenosis. The completion angiogram showed an excellent result and recoil extravasation. The wire, catheter and sheath were removed and the groin was closed with an Angio-Seal. There were no complications. I was present and scrubbed and performed the entire procedure. INTERPRETATION OF IMAGES This patient has a patent infrarenal aorta with no hemodynamically significant stenoses. The patient has patent, common iliac arteries, hypogastric arteries and external iliac arteries bilaterally. The left common femoral artery, profunda and SFA are patent. The popliteal artery is patent down to the below-knee popliteal artery which shows a single high-grade stenosis successfully angioplastied. The patient has a very diseased anterior tibial artery that terminates in the mid calf and an occluded posterior tibial artery. The peroneal artery is the dominant runoff and it reconstitutes the dorsalis pedis at the foot. The proximal peroneal artery has a high-grade stenosis. This was successfully angioplastied with a 3 mm balloon. The results of the angiogram showed excellent perfusion and no embolic complications. MD GABRIELA Casas/DIANA /3:39 PM /9:22 AM JOSE RAUL
--- NOTE | 2017-02-26 13:06 | HHI.PR ---
Subjective Remarks In bed complaints of some pain in her legt foot. No LE edema. Denies fever or chills. No n/v/d/c. Feels sob, says she doesn't have O2 at home. No cough. Objective Vitals Vital Signs Date Time Temp Pulse Resp B/P Pulse Ox O2 Delivery O2 Flow Rate FiO2 02/26/17 11:02 93 02/26/17 09:46 Room Air 02/26/17 08:00 98.1 78 18 139/61 93 02/26/17 07:51 77 02/26/17 04:00 98.0 83 20 132/62 95 02/26/17 00:00 98.2 88 20 178/77 95 02/25/17 20:30 Nasal Cannula 2.00 21 02/25/17 20:30 85 02/25/17 20:30 85 02/25/17 20:00 98.6 85 20 159/74 92 02/25/17 16:00 98.1 93 18 188/86 96 02/25/17 15:42 97 Room Air I/O 02/25/17 02/25/17 02/25/17 02/26/17 02/26/17 02/26/17 07:00 15:00 23:00 07:00 15:00 23:00 Intake Total 0 ml 0 ml 480 ml Output Total 0 ml 6000 ml Balance 0 ml -6000 ml 480 ml Intake Oral 0 ml 0 ml 480 ml Output Urine Total 0 ml Hemodialysis 6000 ml # Voids 1 2 1 # Bowel Movements 1 Result Diagram: 02/25/17 0515 02/25/17 0515 Imaging Last Impressions Chest X-Ray 02/19/17 1600 Signed Impressions: Service Date/Time: Sunday, February 19, 2017 16:16 - CONCLUSION: Cardiomegaly, right basilar effusion and interstitial prominence suggesting some degree of congestive failure. Odilon Keenan MD Foot X-Ray 02/19/17 0000 Signed Impressions: Service Date/Time: Sunday, February 19, 2017 16:11 - CONCLUSION: Chronic changes and no evidence for acute fracture. Lin Pagan MD Chest Ultrasound 02/19/17 0000 Signed Impressions: Service Date/Time: Sunday, February 19, 2017 20:30 - CONCLUSION: Only a trace amount of fluid seen within the right pleural space. Mark Sánchez Jr., MD Objective Remarks GENERAL: Pleasant obese 46 yo F, in bed, doesn't appear in distress. SKIN: Forehead- calciphylaxis CARDIOVASCULAR: Regular rate and rhythm. RESPIRATORY: No accessory muscle use. Clear to auscultation. Breath sounds equal bilaterally. GASTROINTESTINAL: Abdomen soft, non-tender, nondistended. Hepatic and splenic margins not palpable. MUSCULOSKELETAL: LE- left foot-slight mottling of the skin, digits no cyanotic , warm to touch. Right BKA. NEUROLOGICAL: Awake and alert. No obvious cranial nerve deficits. Motor grossly within normal limits. Normal speech. PSYCHIATRIC: Appropriate mood and affect; insight and judgment normal. Procedures 02/25- successful RESIZER OPERATOR of peroneal artery and popliteal artery. left A/P Problem List: (1) Hypertension ICD Code: I10 Status: Acute (2) PAD (peripheral artery disease) ICD Code: I73.9 Status: Acute (3) Tobacco abuse ICD Code: Z72.0 Status: Chronic (4) ESRD (end stage renal disease) on dialysis ICD Code: N18.6 Status: Chronic (5) Diabetes ICD Code: E11.9 Status: Chronic (6) CHF exacerbation ICD Code: I50.9 Status: Acute (7) Hypertensive emergency ICD Code: I16.1 Status: Acute (8) Acute on chronic diastolic (congestive) heart failure ICD Code: I50.33 Status: Acute Assessment and Plan 46-year-old female with Acute on chronic diastolic CHF exacerbation - SOB, Orthopnea- symptoms improved on HD on HD- M-W- Renal ff Continue on O2 nasal cannula 2D ECHO pending, last echo cardiogram done in 2010, EF 55-60% mitral valve regurg, left atrium mildly dilated, and tricuspid with mild regurgitation Continue with Coreg Acute PAD S/P RESIZER OPERATOR of left peroneal and left popliteal artery 02/25 Vascular ff. Plavix - HTN, accelerated- Improved readings s/p Cardene drip Currently on Coreg twice a day and hydralazine End-stage renal disease Calciphylaxis Hyperkalemia- resolved - Appreciate input from nephrology and continue with scheduled hemodialysis.MWF DM 2 - Insulin sliding scale, continue Basal insulin 35 units at bedtime - Monitor Accu-Cheks restart diet post procedure Tobacco abuse - Patient counseled. DVT Prop Heparin Discharge Planning Discharge home when medically stable Problem Qualifiers (1) Hypertension: Qualified Code: I10 - Hypertension, unspecified type (2) Diabetes: (3) CHF exacerbation: Qualified Code: I50.9 - Acute on chronic congestive heart failure, unspecified congestive heart failure type Aretha Johnson MD Feb 26, 2017 13:06
--- NOTE | 2017-02-26 14:26 | HHI.NPPN ---
Subjective History of Present Illness Esrd with L foot ischemia Review of Systems General Constitutional: Fatigue Musculoskeletal MS: Pain/Stiffness Objective Data Data 02/25/17 02/26/17 18:59 06:59 Intake Total 0 ml 480 ml Output Total 6000 ml Balance -6000 ml 480 ml Intake Oral 0 ml 480 ml Hemodialysis 6000 ml # Voids 1 3 # Bowel Movements 1 Vital Signs Date Time Temp Pulse Resp B/P Pulse Ox O2 Delivery O2 Flow Rate FiO2 02/26/17 12:00 98.1 78 18 144/65 92 02/26/17 11:02 93 02/26/17 09:46 Room Air 02/26/17 08:00 98.1 78 18 139/61 93 02/26/17 07:51 77 02/26/17 04:00 98.0 83 20 132/62 95 02/26/17 00:00 98.2 88 20 178/77 95 02/25/17 20:30 Nasal Cannula 2.00 21 02/25/17 20:30 85 02/25/17 20:30 85 02/25/17 20:00 98.6 85 20 159/74 92 02/25/17 16:00 98.1 93 18 188/86 96 02/25/17 15:42 97 Room Air -: 02/25/17 0515 02/25/17 0515 Physical Exam General Appearance: Well Developed Eyes Eye Exam: Pupils Equal Pulmonary Resp Exam: Clear Bilaterally Cardiology CV Exam: Regular Gastrointestinal/Abdomen GI Exam: Soft, Non-Tender Integumentary Skin Exam: Lesion(s) Extremeties Extremities Exam: Moderate Edema Assessment/Plan Problem List: (1) ESRD (end stage renal disease) on dialysis Plan: Patient is on HD M,W,F she has a problem with the left ischemic foot vascular surgery consult appreciated hemodialysis next tomorrow check renal panel dc plans OK with Nephrology to dc by tomorrow on Renvela 2 TID Started Sensipar 30 mg (2) Hyperkalemia Plan: recheck in am (3) Diabetes Plan: Continue monitor while in the hospital (4) Peripheral vascular disease Plan: Vascular surgery fu as out patient Problem Qualifiers (1) Diabetes: Gerri Gilbert MD Feb 26, 2017 14:26
[2017-02-26] MEDS: diphenhydrAMINE HCL 25 MG CAP PO PRN (21:18)
[2017-02-26] MEDS: traZODone HCL 50 MG TAB PO SCH (21:18)
[2017-02-26] MEDS: INSULIN DETEMIR 100 UNITS/ML VIAL SQ SCH (21:30)
[2017-02-27] VITALS: BP 139/69; PULSE 80; RESP 20; TEMP 97.8; O2SAT 96
[2017-02-27 04:00] VITALS: BP 152/66; PULSE 72; RESP 20; TEMP 97.4; O2SAT 94
[2017-02-27] MEDS: hydrALAZINE HCL 50 MG TAB PO SCH ×2 (05:56→14:27)
[2017-02-27] MEDS: ACETAMINOPHEN/HYDROcodone 325 MG/7.5 MG TAB PO PRN ×2 (05:56→14:26)
[2017-02-27] MEDS: INSULIN ASPART SUPPLEMENTAL SCALE SQ SCH (05:56)
[2017-02-27 08:00] VITALS: BP 170/81; PULSE 72; RESP 17; TEMP 97.7; O2SAT 95
[2017-02-27 08:02] LABS: AUTOMATED NEUTROPHIL # 4.5 TH/MM3 (1.8-7.7); BASOPHIL # 0.1 TH/MM3 (0-0.2); EOSINOPHIL # 0.1 TH/MM3 (0-0.4); HEMO FLAGS DIFF FINAL; LYMPH % 22.8 % (9.0-44.0); LYMPHOCYTE # 1.6 TH/MM3 (1.0-4.8); MEAN CELL VOLUME 96.8 FL (80.0-100.0); MEAN CORPUSCULAR HEMOGLOBIN 31.5 PG (27.0-34.0); MEAN CORPUSCULAR HGB CONC 32.6 % (32.0-36.0); MONO % 10.3 % (0.0-8.0); NEUT % 64.9 % (16.0-70.0); PLATELET COUNT 277 TH/MM3 (150-450); RED CELL DISTRIBUTION WIDTH 15.2 % (11.6-17.2)
[2017-02-27 08:06] LABS: BICARBONATE 25.7 MEQ/L (21.0-32.0); POTASSIUM 4.8 MEQ/L (3.5-5.1)
[2017-02-27] MEDS ORDERED: PERC5TAB12 PO (08:11)
[2017-02-27] MEDS ORDERED: CINA30 PO (08:11)
[2017-02-27] MEDS ORDERED: CHOL5000 PO (08:11)
[2017-02-27] MEDS ORDERED: PLAV75TA29 PO (08:11)
[2017-02-27] MEDS ORDERED: LORA-373 PO (08:11)
--- NOTE | 2017-02-27 08:13 | HHI.DS ---
Discharge Summary Admission Date Feb 19, 2017 at 18:41 Discharge Date: Feb 27, 2017 Admitting Diagnosis CHF;SOB; HTN; ESRD; LLE discoloration?PAD/occlusion (1) PAD (peripheral artery disease) ICD Code: I73.9 Diagnosis: Principal (2) Hypertension ICD Code: I10 Diagnosis: Secondary (3) Tobacco abuse ICD Code: Z72.0 Diagnosis: Secondary (4) ESRD (end stage renal disease) on dialysis ICD Code: N18.6 Diagnosis: Secondary (5) Diabetes ICD Code: E11.9 Diagnosis: Secondary (6) CHF exacerbation ICD Code: I50.9 Diagnosis: Principal (7) Hypertensive emergency ICD Code: I16.1 Diagnosis: Secondary Procedures 02/25- successful DRY STARCH SUPERVISOR of peroneal artery and popliteal artery. left Brief History - From Admission Written by Carolina Hernadez, acting as scribe for Dr. Lugo on 02/19/17 at 18: 46. Patient is a 46 year old female with primary medical history of end-stage renal disease on hemodialysis, CAD, CHF, history of DVT, blindness, DM 2, HTN who came into the hospital for evaluation of increasing shortness of breath and left foot pain. Patient states that she noticed this morning that she has increasing shortness of breath, with or without activities. States that it's aggravated by her transferring from her wheelchair to regular chair and states that she felt like she have this kind of feeling 3 years ago when she had congestive heart failure. She also complains of orthopnea started about 3 days ago that she's able to put multiple pillows to be able to breathe better. States she had hemodialysis done yesterday and had 5 L fluid removal. Patient also reports left lower extremity pain, worsening discoloration over duration of 5 months. States that she had an accident and had broken her left foot 5 months ago, went to [place] and states it is broken in 5 different spots, was referred to [facility] and was given a boot where in she had a fall with it also that she stopped using it. Due to change in her insurance and she was unable to follow up with orthopedist nor seen a apartment community manager. Patient also reports that she hasn't had any of her blood pressure medications for about 4 days. She was seen at [facility] where in she was restarted on some of her "medications insulin, stomach medication, carvedilol." But she ran out on most of her medications for about 2 weeks now due to not having medication coverage from her insurance. Otherwise, denies pain and discomfort. Denies chest pain, palpitations, headaches, dizziness. Denies fevers, chills, n/v/d. CBC/BMP: 02/27/17 0648 02/27/17 0648 Significant Findings Laboratory Tests Test 02/25/17 02/27/17 05:15 06:48 Red Blood Count 2.97 MIL/MM3 3.00 MIL/MM3 (4.00-5.30) (4.00-5.30) Hemoglobin 9.4 GM/DL 9.5 GM/DL (11.6-15.3) (11.6-15.3) Hematocrit 28.5 % 29.0 % (35.0-46.0) (35.0-46.0) Neutrophils (%) (Auto) 70.6 % (16.0-70.0) Eosinophils (%) (Auto) 4.1 % (0.0-4.0) Sodium Level 130 MEQ/L 129 MEQ/L (136-145) (136-145) Potassium Level 6.9 MEQ/L (3.5-5.1) Chloride Level 92 MEQ/L 90 MEQ/L (98-107) (98-107) Blood Urea Nitrogen 91 MG/DL (7-18) 83 MG/DL (7-18) Creatinine 8.43 MG/DL 8.09 MG/DL (0.50-1.00) (0.50-1.00) Estimat Glomerular Filtration 5 ML/MIN (>89) 5 ML/MIN (>89) Rate Random Glucose 128 MG/DL (74-106) Monocytes (%) (Auto) 10.3 % (0.0-8.0) Calcium Level 8.4 MG/DL (8.5-10.1) Phosphorus Level 7.9 MG/DL (2.5-4.9) Albumin 3.2 GM/DL (3.4-5.0) Imaging Last Impressions Chest X-Ray 02/19/17 1600 Signed Impressions: Service Date/Time: Sunday, February 19, 2017 16:16 - CONCLUSION: Cardiomegaly, right basilar effusion and interstitial prominence suggesting some degree of congestive failure. Odilon Keenan MD Foot X-Ray 02/19/17 0000 Signed Impressions: Service Date/Time: Sunday, February 19, 2017 16:11 - CONCLUSION: Chronic changes and no evidence for acute fracture. Lin Pagan MD Chest Ultrasound 02/19/17 0000 Signed Impressions: Service Date/Time: Sunday, February 19, 2017 20:30 - CONCLUSION: Only a trace amount of fluid seen within the right pleural space. Mark Sánchez Jr., MD PE at Discharge GENERAL: Pleasant obese 46 yo F, in bed, doesn't appear in distress. SKIN: Forehead- calciphylaxis CARDIOVASCULAR: Regular rate and rhythm. RESPIRATORY: No accessory muscle use. Clear to auscultation. Breath sounds equal bilaterally. GASTROINTESTINAL: Abdomen soft, non-tender, nondistended. Hepatic and splenic margins not palpable. MUSCULOSKELETAL: LE- left foot-slight mottling of the skin, digits no cyanotic , warm to touch. Right BKA. NEUROLOGICAL: Awake and alert. No obvious cranial nerve deficits. Motor grossly within normal limits. Normal speech. PSYCHIATRIC: Appropriate mood and affect; insight and judgment normal. Pt update on day of discharge The patient is in bed awaiting for dialysis. She feels better today. No chest pain . Shortness of breath at baseline. She is satting well on room air at this time. No fever or chills. Hospital Course 46-year-old female with congestive heart failure with exacerbation ejection fraction 55 to 60%, acute PAD S/P DRY STARCH SUPERVISOR of left peroneal and left popliteal artery 02/[address] Cyr vascular surgeon. He recommends Plavix at discharge and to follow up with him as outpatient. Patient improved. To follow-up as outpatient with PCP in consultants. She was discharged home in stable condition. Acute on chronic diastolic CHF exacerbation -patient has preserved ejection fraction. Presented with SOB, Orthopnea- symptoms improved on HD on HD- -W- Renal ff Continue on O2 nasal cannula 2D ECHO pending, last echo cardiogram done in 2010, EF 55-60% mitral valve regurg, left atrium mildly dilated, and tricuspid with mild regurgitation. Repeat echo this admission with ejection fraction 55-60%. Continue with Coreg Acute PAD S/P DRY STARCH SUPERVISOR of left peroneal and left popliteal artery 02/25 Vascular ff. Continue Plavix at discharge. To follow-up with active Klarissa's outpatient - HTN, accelerated- Improved readings s/p Cardene drip Currently on Coreg twice a day and hydralazine End-stage renal disease Calciphylaxis Hyperkalemia- resolved - Appreciate input from nephrology and continue with scheduled hemodialysis.MWF DM 2 - Insulin sliding scale, continue Basal insulin 35 units at bedtime - Monitor Accu-Cheks restart diet post procedure Tobacco abuse - Patient counseled. DVT Prop Heparin Discharge Planning Discharge home in stable condition. Follow-up with PCP and consultants as outpatient. Pt Condition on Discharge: Stable Discharge Disposition: Disch w/ Home Health Serv Discharge Time: > 30 minutes Discharge Instructions DIET: Follow Instructions for: Heart Healthy Diet, Diabetic Diet, Renal Failure Diet Activities you can perform: Weight Bearing as Rashi Follow up Referrals: Nephrology - 2-3 Days PCP Follow-up - 3-5 Days Vascular Surgery - 1 Week with Butch Cyr MD New Medications: Cholecalciferol (Vitamin D3) 5,000 Unit Cap 5000 UNITS PO DAILY vit D #30 CAP Cinacalcet (Sensipar) 30 Mg Tab 30 MG PO DAILY esrd #30 TAB Clopidogrel (Plavix) 75 Mg Tab 75 MG PO DAILY Blood Clot Prevention #30 TAB Continued Medications: Ascorbic Acid (Ascorbic Acid) 500 Mg Tab 500 MG PO BID TAB B-Complex W/ C & Folic Acid (Nephro-Lory) 1 Tab 1 TAB PO DAILY Nutritional Supplement #30 Ref 0 TAB Carvedilol (Carvedilol) 6.25 Mg Tab 6.25 MG PO BID #60 Ref 0 TAB Docusate Sodium (Colace) 100 Mg Capsule 100 MG BID Gabapentin (Gabapentin) 600 Mg Tab 600 MG PO TID #90 Ref 0 TAB Hydroxyzine HCl (Hydroxyzine HCl) 10 Mg Tab 10 MG PO Q8HR Itching Ref 0 TAB Insulin Glargine Inj (Lantus Solostar Pen Inj) 300 Unit/3 Ml Pen 28 UNITS SQ HS Blood Sugar Management #1 Ref 0 BOX Lanthanum (Fosrenol) 1,000 Mg Tab 1000 MG CHEW BID Reduce Phosphorous #90 Ref 0 TAB Lorazepam (Lorazepam) 0.5 Mg Tab 0.5 MG PO Q6H PRN ANXIETY #20 Ref 0 TAB (This prescription has been renewed) Omeprazole (Omeprazole) 40 Mg Cap 40 MG PO DAILY #30 Ref 5 CAP Oxycodone-Acetaminophen (Percocet) 5-325 mg Tab 1 TAB PO Q6H PRN PAIN #15 Ref 0 TAB (This prescription has been renewed) Sertraline (Sertraline) 100 Mg Tab 100 MG PO DAILY #30 Ref 0 TAB Sevelamer Carbonate (Renvela) 800 Mg Tab 3200 MG PO QIDPC Control phosphorous levels #90 Ref 0 TAB Trazodone (Trazodone) 50 Mg Tab 50 MG PO HS Control Depression #30 Ref 0 TAB Aretha Johnson MD Feb 27, 2017 08:13
--- NOTE | 2017-02-27 08:14 | HHI.FF ---
Face to Face Verification Diagnosis: (1) PAD (peripheral artery disease) (2) Diabetic retinopathy (3) Calciphylaxis (4) Peripheral vascular disease (5) Hyperkalemia (6) Hypertensive emergency (7) Acute on chronic diastolic (congestive) heart failure (8) ESRD (end stage renal disease) on dialysis Physical Therapy Order: Evaluate and Treat Home Health Nursing Order: Medical education Signs/symptoms of disease process Diabetic education Medication education-adverse effect Nursing assessment with vital signs I have seen patient Summer Laguerre on 02/27/17. My clinical findings support the need for the requested home health care services because: Ltd mobility - disease progression Patient has SOB I certify that my clinical findings support that this patient is homebound because: Post-op weakness Aretha Johnson MD Feb 27, 2017 08:13
[2017-02-27] MEDS: SEVELAMER CARBONATE 800 MG TAB PO SCH ×2 (08:28→14:26)
[2017-02-27] MEDS: FUROSEMIDE 20 MG/2 ML VIAL IV PUSH SCH (08:28)
[2017-02-27] MEDS: SERTRALINE HCL 100 MG TAB PO SCH (08:29)
[2017-02-27] MEDS: CINACALCET HYDROCHLORIDE 30 MG TAB PO SCH (08:29)
[2017-02-27] MEDS: HEPARIN SODIUM - SQ 10,000 UNITS/ML VIAL SQ SCH (08:29)
[2017-02-27] MEDS: diphenhydrAMINE HCL 25 MG CAP PO PRN (08:29)
[2017-02-27] MEDS: CHOLECALCIFEROL (VIT D3) 5000 UNIT CAP PO SCH (08:30)
--- NOTE | 2017-02-27 08:32 | HHI.FF ---
Face to Face Verification Diagnosis: (1) PAD (peripheral artery disease) (2) Diabetic retinopathy (3) Hypertensive emergency (4) ESRD (end stage renal disease) on dialysis (5) Calciphylaxis (6) Peripheral vascular disease Home Health Nursing Order: Medical education Signs/symptoms of disease process Diabetic education Medication education-adverse effect Nursing assessment with vital signs I have seen patient Summer Laguerre on 02/27/17. My clinical findings support the need for the requested home health care services because: Ltd mobility - disease progression Patient has SOB I certify that my clinical findings support that this patient is homebound because: Post-op weakness Unsteady gait/balance Aretha Johnson MD Feb 27, 2017 08:32
[2017-02-27] MEDS: SODIUM CHLORIDE 0.9% FLUSH 10 ML FLUSH IV FLUSH SCH (08:37)
[2017-02-27] MEDS ORDERED: CLOPIDOGREL 75 MG TAB PO SCH (09:00)
--- NOTE | 2017-02-27 11:39 | HHI.NPPN ---
Subjective History of Present Illness Esrd with L foot ischemia Review of Systems General Constitutional: Fatigue Musculoskeletal MS: Pain/Stiffness Objective Data Data 02/26/17 02/27/17 19:00 07:00 Intake Total 960 ml 500 ml Output Total 800 ml Balance 960 ml -300 ml Intake Oral 960 ml 500 ml Output Urine Total 800 ml # Voids 0 # Bowel Movements 1 0 Vital Signs Date Time Temp Pulse Resp B/P Pulse Ox O2 Delivery O2 Flow Rate FiO2 02/27/17 08:00 97.7 72 17 170/81 95 02/27/17 04:00 97.4 72 20 152/66 94 02/27/17 00:00 97.8 80 20 139/69 96 02/26/17 20:00 94 02/26/17 20:00 98.0 80 20 132/61 93 02/26/17 19:30 Nasal Cannula 2.00 21 02/26/17 19:30 85 02/26/17 16:00 98.3 77 18 146/68 96 02/26/17 12:00 98.1 78 18 144/65 92 -: 02/27/17 0648 02/27/17 0648 Physical Exam General Appearance: Well Developed Eyes Eye Exam: Pupils Equal Pulmonary Resp Exam: Clear Bilaterally Cardiology CV Exam: Regular Gastrointestinal/Abdomen GI Exam: Soft, Non-Tender Integumentary Skin Exam: Lesion(s) Extremeties Extremities Exam: Moderate Edema Assessment/Plan Problem List: (1) ESRD (end stage renal disease) on dialysis Plan: Patient is on HD M,W,F she has a problem with the left ischemic foot vascular surgery consult appreciated hemodialysis next tomorrow check renal panel dc plans OK with Nephrology to dc by today seen at dialysis UF 5 L tolerating it on Renvela 2 TID Started Sensipar 30 mg (2) Hyperkalemia Plan: recheck in am (3) Diabetes Plan: Continue monitor while in the hospital (4) Peripheral vascular disease Plan: Vascular surgery fu as out patient Problem Qualifiers (1) Diabetes: Gerri Gilbert MD Feb 27, 2017 11:39
[2017-02-27] MEDS: GELATIN 12 MM/7 MM FOAM TOP PRN (12:07)
[2017-02-27] MEDS: EPOETIN ALFA 10,000 UNITS/ML VIAL IV PRN (12:07)
[2017-02-27] MEDS: CARVEDILOL 6.25 MG TAB PO SCH (14:25)
== END 2017-02-27 17:17 | disposition home health service (06) | DRG 252 ==
LOC: NEPC 14:41 → NEDA 18:41 → NEDH 02-20 06:40 → N04A 02-20 15:50
PROVIDERS: ADMIT Hospitalist; ATTEND Hospitalist
PROC: 5A1D60Z (ICD-10-PCS; 2017-02-20)
PROC: B41D1ZZ Fluoroscopy of Aorta and Bilateral Lower Extremity Arteries using Low Osmolar Contrast (ICD-10-PCS; 2017-02-25)
PROC: 047N3Z1 Dilation of Left Popliteal Artery using Drug-Coated Balloon, Percutaneous Approach (ICD-10-PCS; principal; 2017-02-25 12:30)
PROC: 047U3ZZ Dilation of Left Peroneal Artery, Percutaneous Approach (ICD-10-PCS; 2017-02-25 12:30)
DX: I70.222 Atherosclerosis of native arteries of extremities with rest pain, left leg (principal); N18.6 End stage renal disease; I50.33 Acute on chronic diastolic (congestive) heart failure; E11.22 Type 2 diabetes mellitus with diabetic chronic kidney disease; E11.42 Type 2 diabetes mellitus with diabetic polyneuropathy; I08.1 Rheumatic disorders of both mitral and tricuspid valves; I13.2 Hypertensive heart and chronic kidney disease with heart failure and with stage 5 chronic kidney disease, or end stage renal disease; I16.1 Hypertensive emergency; E83.59 Other disorders of calcium metabolism; E87.5 Hyperkalemia; F32.9 Major depressive disorder, single episode, unspecified; F41.9 Anxiety disorder, unspecified; F17.210 Nicotine dependence, cigarettes, uncomplicated; F12.90 Cannabis use, unspecified, uncomplicated; E66.9 Obesity, unspecified; H54.0 Blindness, both eyes; I25.10 Atherosclerotic heart disease of native coronary artery without angina pectoris; Z89.511 Acquired absence of right leg below knee; Z79.01 Long term (current) use of anticoagulants; Z79.4 Long term (current) use of insulin; Z68.39 Body mass index [BMI] 39.0-39.9, adult; Z99.2 Dependence on renal dialysis; Z86.718 Personal history of other venous thrombosis and embolism
CPT/HCPCS: 37224; 37228; 71010; 73630; 75710; 76604; 76937; 80048; 80053; 80069; 82306; 82550; 82948; 83036; 83880; 83970; 84100; 84484; 85025; 85610; 85730; 90935; 93005; 93308; 93922; 96374; C1893; G0269; J0360; J1644; J1815; J1940; J2250; J3010; J7030; J7050; J7512; Q4081; Q9967

== ENCOUNTER 2017-05-22 13:29 | Inpatient (IN) | payer MEDICAID ==
[2017-05-22] VITALS (8 sets, daily range): BP systolic 116–174; BP diastolic 49–74; PULSE 70–89; RESP 14–18; TEMP 98.6–99.2; O2SAT 89–100
[~2017-05-22] VITALS: Ht 165.1 cm; Wt 111.4 kg
[~2017-05-22 13:29] MED LIST changes: +BLOOD GLUCOSE M1 KIT; +BLOOD GLUCOSE T1 TES; +CHOL5000 PO; -DOXY100C PO; -ESCI20TA PO; +LANCETS1 MI1; +PLAV75TA29 PO; +TRIA.1%T TOPICAL; -ZOFR4TAB PO
--- NOTE | 2017-05-22 13:36 | PD ---
Physical Exam Time Seen by Provider: 13:34 Narrative 46-year-old female presents to the emergency Department with complaint of left upper quadrant abdominal pain that is worse with deep inspiration started on . Reports Subjective fever and vomiting. Denies diarrhea. Patient seen in triage. Vital signs reviewed. Patient awaiting bed placement. Data Data Last Documented VS Vital Signs Date Time Temp Pulse Resp B/P (MAP) Pulse Ox O2 Delivery O2 Flow Rate FiO2 05/22/17 13:32 99.2 86 14 174/74 (107) 95 MDM Supervised Visit with GAMA: Cassidy Ferraro May 22, 2017 13:36
[2017-05-22] MEDS ORDERED: ONDANSETRON HCL 4 MG/2 ML VIAL IVP ONE (18:00)
[2017-05-22] MEDS ORDERED: SODIUM CHLORIDE 0.9% FLUSH 10 ML FLUSH IV FLUSH PRN ×2 (18:00→21:15)
[2017-05-22] MEDS ORDERED: MORPHINE SULFATE 4 MG/ML INJ IV PUSH ONE (18:00)
--- NOTE | 2017-05-22 18:14 | PD ---
HPI Chief Complaint: Respiratory Symptoms Time Seen by Provider: 17:51 Travel History International Travel<30 days: No Contact w/Intl Traveler<30days: No Traveled to known affect area: No History of Present Illness HPI 46-year-old female with history of ESRD, diabetes, hypertension presents to the emergency room for evaluation of left upper quadrant pain that started 6 days ago. Patient states pain is constant. It radiates to her back. It is worse with any movement and if she takes a deep breath in. Patient denies any shortness of breath or difficulty breathing. She has had associated nausea with nonbilious, nonbloody vomiting. Reports subjective fevers. She is supposed to have dialysis Saturday, Saturday, Saturday but did not go Saturday or Saturday this week because she was in too much pain. She takes her prescribed Lortab which moderately relieved her symptoms. She has associated loose stools but denies any hematemesis, hematochezia, or melena. Patient has history of cholecystectomy but denies any other abdominal surgeries. She has ESRD after reaction to vancomycin. Patient said she is not very good at taking her sugars. Her PCP is Dr. Drummond. [facility] Past Medical History Hx Anticoagulant Therapy: Yes (Eliquis) Arthritis: No Asthma: No Autoimmune Disease: No Blood Disorders: No Anxiety: No Depression: Yes Heart Rhythm Problems: No Cancer: No Cardiac Catheterization: Yes Cardiovascular Problems: Yes (HTN, CAD) High Cholesterol: Yes Chemotherapy: No Chest Pain: No Congestive Heart Failure: No COPD: No Cerebrovascular Accident: No Diabetes: Yes (type 2) Dialysis: Yes Diminished Hearing: No Endocrine: No GERD: No Glaucoma: No Genitourinary: Yes Headaches: Yes Hepatitis: No Hiatal Hernia: No Hypertension: Yes Immune Disorder: No Kidney Stones: No Musculoskeletal: Yes Neurologic: Yes Psychiatric: Yes Reproductive: Yes (previous miscarriage ) Respiratory: Yes (PNEUMONIA) Migraines: Yes Myocardial Infarction: No Radiation Therapy: No 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) Seizures: No Sickle Cell Disease: No Sleep Apnea: No Thyroid Disease: No Ulcer: No ?: Not : 2 Para: 2 Ovarian Cysts: Yes (RIGHT OOPHRECTOMY) Past Surgical History Abdominal Surgery: Yes AICD: No Arteriovenous Shunt: No Cardiac Surgery: No Cholecystectomy: Yes Ear Surgery: No Endocrine Surgery: No Eye Surgery: Yes Genitourinary Surgery: No Gynecologic Surgery: Yes (RIGHT OOPHERECTOMY (ovary removed)) Insulin Pump: No Joint Replacement: No Oral Surgery: Yes (TEETH EXTRACTED) Pacemaker: No Thoracic Surgery: No Tonsillectomy: Yes Other Surgery: Yes Social History Alcohol Use: No Tobacco Use: Yes Substance Use: Yes (marijuana a week ago) Allergies-Medications (Allergen,Severity, Reaction): Coded Allergies: amoxicillin (Unverified Allergy, Severe, HIVES, 05/22/17) codeine (Unverified Allergy, Severe, HYPERACTIVITY &ITCH, 05/22/17) iodine (Unverified Allergy, Severe, TOPICAL/ITCH, 05/22/17) potassium iodide (Unverified Allergy, Severe, TOPICAL/ITCH, 05/22/17) povidone-iodine (Unverified Allergy, Severe, TOPICAL/ITCH, 05/22/17) sodium iodide (Unverified Allergy, Severe, TOPICAL/ITCH, 05/22/17) sodium iodide (Unverified Allergy, Severe, TOPICAL/ITCH, 05/22/17) vancomycin (Unverified Allergy, Severe, KIDNEY FAILURE, 05/22/17) iohexol (Unverified Allergy, Intermediate, HIVES, 05/22/17) Pork/Porcine Containing Products (Unverified Allergy, Unknown, 05/22/17) penicillin G (Unverified Allergy, Unknown, 05/22/17) *MDRO Multi-Drug Resistant Organism (Verified Adverse Reaction, Unknown, MRSA, 03/08/17) MRSA (multiple wounds) - 2002, 2003, 2005, 2006, 2008, 2009 Reported Meds & Prescriptions Reported Meds & Active Scripts Active Plavix (Clopidogrel Bisulfate) 75 Mg Tab 75 Mg PO DAILY Vitamin D3 (Cholecalciferol) 5,000 Unit Cap 5,000 Units PO DAILY Omeprazole 40 Mg Cap 40 Mg PO DAILY Carvedilol 6.25 Mg Tab 6.25 Mg PO BID Reported Trazodone (Trazodone HCl) 50 Mg Tab 50 Mg PO HS Sertraline (Sertraline HCl) 100 Mg Tab 100 Mg PO DAILY Renvela (Sevelamer Carbonate) 800 Mg Tab 3,200 Mg PO QIDPC Nephro-Lory (B-Complex W/ C & Folic Acid) 1 Tab 1 Tab PO DAILY Gabapentin 600 Mg Tab 600 Mg PO TID Colace (Docusate Sodium) 100 Mg Capsule 100 Mg BID Hydroxyzine HCl 10 Mg Tab 10 Mg PO Q8HR Review of Systems Except as stated in HPI: all other systems reviewed are Neg Physical Exam Narrative GENERAL: Well-nourished, obese female in no acute distress. Afebrile. SKIN: Focused skin assessment warm/dry. HEAD: Normocephalic. EYES: No scleral icterus. No injection or drainage. NECK: Supple, trachea midline. No JVD or lymphadenopathy. CARDIOVASCULAR: Regular rate and rhythm without murmurs, gallops, or rubs. RESPIRATORY: Breath sounds equal bilaterally. No accessory muscle use. GASTROINTESTINAL: Abdomen soft, nondistended. Tenderness to palpation of left upper quadrant. Mild guarding. No rebound tenderness. Data Data Last Documented VS Vital Signs Date Time Temp Pulse Resp B/P (MAP) Pulse Ox O2 Delivery O2 Flow Rate FiO2 05/22/17 18:21 77 16 116/49 (71) 95 Nasal Cannula 2.00 05/22/17 13:32 99.2 Orders Orders Complete Blood Count With Diff (05/22/17 17:58) Comprehensive Metabolic Panel (05/22/17 17:58) Lipase (05/22/17 17:58) Lactic Acid (05/22/17 17:58) Iv Access Insert/Monitor (05/22/17 17:58) Ecg Monitoring (05/22/17 17:58) Oximetry (05/22/17 17:58) Morphine Inj (Morphine Inj) (05/22/17 18:00) Ondansetron Inj (Zofran Inj) (05/22/17 18:00) Sodium Chloride 0.9% Flush (Ns Flush) (05/22/17 18:00) Ct Abd/Pel W/O Iv Contrast (05/22/17 ) Electrocardiogram (05/22/17 19:11) Potassium, Serum (K) (05/22/17 22:11) Calcium Gluconate Inj (Calcium Gluconate (05/22/17 19:15) Insulin Human Regular Inj (Novolin R Inj (05/22/17 19:30) Albuterol Concentrated Neb (Albuterol Co (05/22/17 19:15) Sodium Polysty Sulfate Liq (Kayexalate L (05/22/17 19:15) Admit Order (Ed Use Only) (05/22/17 ) Cartridge Belt Puncher / Telemetry PABLO.Q8H (05/22/17 20:04) Vital Signs (Adult) Q4H (05/22/17 20:04) Diet Renal (05/23/17 Breakfast) Activity Oob With Assistance (05/22/17 20:04) Notify Dr: Other (05/22/17 20:04) Labs Laboratory Tests Test 05/22/17 18:20 White Blood Count 11.6 TH/MM3 Red Blood Count 3.84 MIL/MM3 Hemoglobin 12.0 GM/DL Hematocrit 36.4 % Mean Corpuscular Volume 94.8 FL Mean Corpuscular Hemoglobin 31.2 PG Mean Corpuscular Hemoglobin Concent 32.9 % Red Cell Distribution Width 16.6 % Platelet Count 257 TH/MM3 Mean Platelet Volume 7.9 FL Neutrophils (%) (Auto) 87.1 % Lymphocytes (%) (Auto) 4.7 % Monocytes (%) (Auto) 7.1 % Eosinophils (%) (Auto) 0.4 % Basophils (%) (Auto) 0.7 % Neutrophils # (Auto) 10.1 TH/MM3 Lymphocytes # (Auto) 0.5 TH/MM3 Monocytes # (Auto) 0.8 TH/MM3 Eosinophils # (Auto) 0.0 TH/MM3 Basophils # (Auto) 0.1 TH/MM3 CBC Comment DIFF FINAL Differential Comment Blood Urea Nitrogen 99 MG/DL Creatinine 12.61 MG/DL Random Glucose 265 MG/DL Total Protein 8.0 GM/DL Albumin 3.1 GM/DL Calcium Level 9.3 MG/DL Alkaline Phosphatase 135 U/L Aspartate Amino Transf (AST/SGOT) 8 U/L Alanine Aminotransferase (ALT/SGPT) 12 U/L Total Bilirubin 0.5 MG/DL Sodium Level 123 MEQ/L Potassium Level 7.3 MEQ/L Chloride Level 91 MEQ/L Carbon Dioxide Level 15.9 MEQ/L Anion Gap 16 MEQ/L Estimat Glomerular Filtration Rate 3 ML/MIN Lactic Acid Level 1.0 mmol/L Lipase 167 U/L [facility] Medical Decision Making Medical Screen Exam Complete: Yes Emergency Medical Condition: Yes Medical Record Reviewed: Yes Differential Diagnosis Pancreatitis, gastroparesis, GERD Narrative Course 46-year-old female with history of ESRD on dialysis Saturday, Saturday, Saturday, CHF, and diabetes presents to the emergency room for evaluation of left upper quadrant pain for the past 6 days. Patient woke up with the pain. She denies any trauma or injury. States she developed a slight cough after onset. It is worse with movement and deep breathing. Radiates to her back. She has had associated nausea with nonbloody, nonbilious vomiting. IV access established and basic labs obtained. Patient placed on cardiac telemetry. CBC is essentially unremarkable. CMP is remarkable for sodium of 123 and potassium of 7.3. Creatinine is elevated to 12.61, up from previous of 8.09. Lipase is 167. Lactic is 1.0. EKG shows sinus bradycardia with marked sinus arrhythmia and peaked T waves, as compared to previous. No ST changes. Signed off by my attending physician, Dr. Cohen. With market abnormalities on labs, patient needs to be monitored closely in the intensive care unit. I spoke to the vamp seamer on-call, Dr. Torres, who agrees to accept this patient to her service. I spoke to the seat trimmer on-call for Dr. Mason, Dr. Gilbert, who states he will set up dialysis for the patient. Physician Communication Physician Communication I spoke to Dr. Torres who agrees to accept this patient to her service. I spoke tot Dr. Gilbert who plans to set up dialysis for the patient. Diagnosis Primary Impression: Hyperkalemia Additional Impression: ESRD (end stage renal disease) on dialysis Admitting Information Admitting Physician Requests: Admit Condition: Stable Molly Neil May 22, 2017 18:14
[2017-05-22 18:38] LABS: AUTOMATED NEUTROPHIL # 10.1 TH/MM3 (1.8-7.7); BASOPHIL # 0.1 TH/MM3 (0-0.2); BASOPHIL % 0.7 % (0.0-2.0); EOSINOPHIL % 0.4 % (0.0-4.0); HEMATOCRIT 36.4 % (35.0-46.0); HEMO FLAGS DIFF FINAL; LYMPH % 4.7 % (9.0-44.0); LYMPHOCYTE # 0.5 TH/MM3 (1.0-4.8); MEAN CELL VOLUME 94.8 FL (80.0-100.0); MEAN CORPUSCULAR HEMOGLOBIN 31.2 PG (27.0-34.0); MEAN CORPUSCULAR HGB CONC 32.9 % (32.0-36.0); MONO % 7.1 % (0.0-8.0); NEUT % 87.1 % (16.0-70.0); PLATELET COUNT 257 TH/MM3 (150-450); RED BLOOD COUNT 3.84 MIL/MM3 (4.00-5.30); RED CELL DISTRIBUTION WIDTH 16.6 % (11.6-17.2); WHITE BLOOD COUNT 11.6 TH/MM3 (4.0-11.0)
--- NOTE | 2017-05-22 18:50 | PD ---
Physical Exam Date Seen by Provider: May 22, 2017 Narrative Patient presents with left-sided abdominal pain. On exam, is soft with some diffuse left upper abdominal tenderness but no guarding or rebound. Data Data Last Documented VS Vital Signs Date Time Temp Pulse Resp B/P (MAP) Pulse Ox O2 Delivery O2 Flow Rate FiO2 05/22/17 18:21 77 16 116/49 (71) 95 Nasal Cannula 2.00 05/22/17 13:32 99.2 Orders Orders Complete Blood Count With Diff (05/22/17 17:58) Comprehensive Metabolic Panel (05/22/17 17:58) Lipase (05/22/17 17:58) Lactic Acid (05/22/17 17:58) Iv Access Insert/Monitor (05/22/17 17:58) Ecg Monitoring (05/22/17 17:58) Oximetry (05/22/17 17:58) Morphine Inj (Morphine Inj) (05/22/17 18:00) Ondansetron Inj (Zofran Inj) (05/22/17 18:00) Sodium Chloride 0.9% Flush (Ns Flush) (05/22/17 18:00) Ct Abd/Pel W/O Iv Contrast (05/22/17 ) Labs Laboratory Tests Test 05/22/17 18:20 White Blood Count 11.6 TH/MM3 Red Blood Count 3.84 MIL/MM3 Hemoglobin 12.0 GM/DL Hematocrit 36.4 % Mean Corpuscular Volume 94.8 FL Mean Corpuscular Hemoglobin 31.2 PG Mean Corpuscular Hemoglobin Concent 32.9 % Red Cell Distribution Width 16.6 % Platelet Count 257 TH/MM3 Mean Platelet Volume 7.9 FL Neutrophils (%) (Auto) 87.1 % Lymphocytes (%) (Auto) 4.7 % Monocytes (%) (Auto) 7.1 % Eosinophils (%) (Auto) 0.4 % Basophils (%) (Auto) 0.7 % Neutrophils # (Auto) 10.1 TH/MM3 Lymphocytes # (Auto) 0.5 TH/MM3 Monocytes # (Auto) 0.8 TH/MM3 Eosinophils # (Auto) 0.0 TH/MM3 Basophils # (Auto) 0.1 TH/MM3 CBC Comment DIFF FINAL Differential Comment MDM Supervised Visit with GAMA: Yes Narrative Course I, Dr. Cohen, have reviewed the advance practice practitioner's documentation and am in agreement, met with the patient face to face, made the diagnosis, and the medical decision making was done by me. *My assessment and Findings: Patient with left upper abdominal pain and a benign abdominal exam. Please see Molly Neil PA-C's note for results of laboratory and radiographic evaluation, ED course, final diagnosis and disposition Condition: Irene Mckeon MD May 22, 2017 18:50
--- NOTE | 2017-05-22 19:00 | RADRPT ---
EXAM DATE/TIME: 05/22/2017 18:34 [facility] COMPARISON: CT ABDOMEN & PELVIS W/O CONTRAST, December 24, 2009, 16:45. INDICATIONS : Left side abdominal pain. ORAL CONTRAST: No oral contrast ingested. RADIATION DOSE: 20.63 CTDIvol (mGy) MEDICAL HISTORY : Cardiovascular disease. Hypertension. dialysis, ovarian cysts SURGICAL HISTORY : Cholecystectomy. ENCOUNTER: Initial ACUITY: 1 day PAIN SCALE: 7/10 LOCATION: Left abdomen TECHNIQUE: Volumetric scanning of the abdomen and pelvis was performed. Using automated exposure control and ad justment of the mA and/or kV according to patient size, radiation dose was kept as low as reasonably achievable to obtain optimal diagnostic quality images. DICOM format image data is available electro nically for review and comparison. The lack of IV contrast limits the diagnosis for certain organ pa thology. FINDINGS: LOWER LUNGS: Focal infiltrate in the lower right middle lobe. Left lung base clear. LIVER: Homogeneous density without lesion. There is no dilation of the biliary tree. No gallbladder, surgi pascual removed. Small granuloma in the liver. No evidence of ascites. SPLEEN: Normal size without lesion. PANCREAS: Within normal limits. KIDNEYS: The kidneys are atrophic bilaterally. No hydronephrosis. Vascular calcifications are seen associated with both kidneys. This limits evaluation for stones. ADRENAL GLANDS: Within normal limits. VASCULAR: There is no aortic aneurysm. BOWEL/MESENTERY: The stomach, small bowel, and colon demonstrate no acute abnormality. There is no free intraperitone al air or fluid. No inflammatory changes. ABDOMINAL WALL: Within normal limits. RETROPERITONEUM: There is no lymphadenopathy. BLADDER: Decompressed. REPRODUCTIVE: Within normal limits. INGUINAL: There is no lymphadenopathy or hernia. MUSCULOSKELETAL: Within normal limits for patient age. CONCLUSION: 1. Status post cholecystectomy. 2. Atrophy of both kidneys. No hydronephrosis. 3. No acute pathology. Dennis Alexis MD on May 22, 2017 at 18:55 Board Certified Radiologist. This report was verified electronically.
[2017-05-22 19:01] LABS: ALKALINE PHOSPHATASE 135 U/L (45-117); ALT (GPT) 12 U/L (10-53); ANION GAP 16 MEQ/L (5-15); AST (GOT) 8 U/L (15-37); BICARBONATE 15.9 MEQ/L (21.0-32.0); BLOOD UREA NITROGEN 99 MG/DL (7-18); CHLORIDE 91 MEQ/L (98-107); GLOMERULAR FILTRATION RATE 3 ML/MIN (>89); TOTAL BILIRUBIN ADULT 0.5 MG/DL (0.2-1.0)
[2017-05-22 19:05] LABS: POTASSIUM 7.3 MEQ/L (3.5-5.1); SODIUM (NA) 123 MEQ/L (136-145)
[2017-05-22] MEDS ORDERED: RESP: ALBUTEROL CONC 2.5 MG/0.5 ML NEB INH ONE (19:15)
[2017-05-22] MEDS ORDERED: CALCIUM GLUCONATE 10% 1 GM/10 ML VIAL SLOW IVP ONE (19:15)
[2017-05-22] MEDS ORDERED: SODIUM POLYSTYRENE SULFONATE SUSP 15 GM/60 ML CUP PO ONE (19:15)
[2017-05-22] MEDS ORDERED: INSULIN HUMAN REGULAR 1,000 UNITS/10 ML VIAL IV PUSH ONE (19:30)
[2017-05-22] MEDS ORDERED: SODIUM CHLOR 0.9% 1000 ML INJ 1,000 ML IV PRN (21:06)
[2017-05-22] MEDS ORDERED: SODIUM CHLOR 0.9% 1000 ML INJ 1,000 ML OTHER PRN ×2 (21:06)
[2017-05-22] MEDS ORDERED: HEPARIN SODIUM - IV 10,000 UNITS/10 ML VIAL IV FLUSH PRN (21:15)
[2017-05-22] MEDS ORDERED: ACETAMINOPHEN 325 MG TAB PO PRN (21:15)
[2017-05-22] MEDS ORDERED: ONDANSETRON HCL 4 MG/2 ML VIAL IV PUSH PRN (21:15)
[2017-05-22] MEDS ORDERED: GELATIN 12 MM/7 MM FOAM TOP PRN (21:15)
[2017-05-22] MEDS ORDERED: cloNIDine HCL 0.1 MG TAB PO PRN (21:15)
[2017-05-22] MEDS ORDERED: ALBUMIN 25% INJ 100 ML IV PRN (21:15)
[2017-05-22] MEDS ORDERED: HEPARIN SODIUM - IV 10,000 UNITS/10 ML VIAL PRN (21:15)
[2017-05-22] MEDS ORDERED: NITROGLYCERIN 0.4 MG SL 25 TABS/BTL SL PRN (21:15)
[2017-05-22] MEDS ORDERED: GENTAMICIN SULFATE (DIALYSIS USE ONLY) 20 MG/2 ML VIAL OTHER PRN (21:15)
[2017-05-22] MEDS ORDERED: MANNITOL 12.5 GM/50 ML VIAL IV PRN (21:15)
[2017-05-22] MEDS ORDERED: diphenhydrAMINE HCL 25 MG CAP PO PRN (21:15)
[2017-05-22] MEDS ORDERED: ACETAMINOPHEN/HYDROcodone 325 MG/5 MG TAB PO PRN (21:30)
--- NOTE | 2017-05-22 21:33 | HHI.HP ---
[facility] Service Critical Care Medicine Primary Care Physician Venus Drummond MD Admission Diagnosis hyperkalemia, ESRD, hyponatremia, noncompliance Diagnosis: (1) Hyperkalemia Diagnosis: Principal (2) ESRD (end stage renal disease) on dialysis Diagnosis: Secondary (3) Anxiety Diagnosis: Secondary (4) Depression Diagnosis: Secondary (5) Diabetic retinopathy Diagnosis: Secondary (6) PAD (peripheral artery disease) Diagnosis: Secondary (7) Tobacco abuse Diagnosis: Secondary (8) Hypertension Diagnosis: Secondary (9) Diabetes Diagnosis: Secondary (10) Abdominal pain, LUQ Travel History International Travel<30 Days: No Contact w/Intl Traveler <30 Da: No Traveled to Known Affected Are: No History of Present Illness 46-year-old female with past medical history of end-stage renal disease on hemodialysis Saturday, Saturday, Saturday, hypertension, coronary artery disease, hyperlipidemia, diabetes, hepatitis C, prior IVDU who presents to [facility] emergency department complaining of 6 day history of left upper quadrant abdominal pain. She states that on , May 16 she was getting up out of her wheelchair when she developed sharp pain in her left abdomen that radiates to her back. She states it is worse when she moves, touches it, lays on her left side, or takes a breath. She says pain has been improved by taking a friend's lortab. She has had some intermittent vomiting since the pain started. She states this is been a total of 9 times over the last few days. It has been nonbloody nonbilious. She at first attributed her symptoms to constipation but states she then had 3 bowel movements on Saturday. She denies any prior similar symptoms. She states she has never had an EGD or colonoscopy. She denies cough or shortness of breath. She does state she has been receiving and antibiotic at dialysis for the last 3 weeks but is uncertain why or what abx. She missed her last two dialysis sessions so her potassium is 7.3 and bicarb is 15.9. Nephrology was contacted and arranged for emergent hemodialysis. Review of Systems Constitutional: DENIES: Fever Respiratory: DENIES: Shortness of breath Cardiovascular: DENIES: Chest pain, Palpitations, Dyspnea on Exertion, Lower Extremity Edema Gastrointestinal: COMPLAINS OF: Abdominal pain, Nausea, Vomiting, Anorexia Musculoskeletal: DENIES: Muscle aches Neurologic: DENIES: Abnormal gait Psychiatric: DENIES: Confusion Past Family Social History Allergies: Coded Allergies: amoxicillin (Unverified Allergy, Severe, HIVES, 05/22/17) codeine (Unverified Allergy, Severe, HYPERACTIVITY &ITCH, 05/22/17) iodine (Unverified Allergy, Severe, TOPICAL/ITCH, 05/22/17) potassium iodide (Unverified Allergy, Severe, TOPICAL/ITCH, 05/22/17) povidone-iodine (Unverified Allergy, Severe, TOPICAL/ITCH, 05/22/17) sodium iodide (Unverified Allergy, Severe, TOPICAL/ITCH, 05/22/17) sodium iodide (Unverified Allergy, Severe, TOPICAL/ITCH, 05/22/17) vancomycin (Unverified Allergy, Severe, KIDNEY FAILURE, 05/22/17) iohexol (Unverified Allergy, Intermediate, HIVES, 05/22/17) Pork/Porcine Containing Products (Unverified Allergy, Unknown, 05/22/17) penicillin G (Unverified Allergy, Unknown, 05/22/17) Past Medical History ESRD - she states she started HD 5-6 years ago due to diabetic/hypertensive nephropathy and vancomycin exposure. (Dr. 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 says she wears oxygen at dialysis but no home o2 Past Surgical History Cholecystectomy Right upper extremity fistula Right nephrectomy due to ovarian cyst Dental extractions Tonsillectomy Reported Medications Plavix 75 mg by mouth daily Carvedilol 6.25 mg by mouth twice a day Gabapentin 60 mg by mouth 3 times a day Sertraline 100 mg by mouth daily Trazodone 50 mg by mouth daily at bedtime Hydroxyzine 10 mg by mouth every 8 hours when necessary with itching Renvela 3200 mg by mouth 4 times a day Colace 100 mg by mouth twice a day Omeprazole 40 mg by mouth daily B complex one by mouth daily Vitamin D3 5000 units by mouth daily Family History Father of leukemia at age 64. He also had hypertension diabetes Mother has diabetes and hypertension and is still living at age 65 Social History She smokes 2 to 3 black and mild per day Use marijuana Denies use of alcohol States she has a prior history of IV drug use but quit 6 months ago Physical Exam Vital Signs Vital Signs Date Time Temp Pulse Resp B/P (MAP) Pulse Ox O2 Delivery O2 Flow Rate FiO2 05/22/17 21:14 74 18 157/65 (95) 100 Nasal Cannula 2.00 05/22/17 20:00 70 18 148/65 (92) 98 Nasal Cannula 2.00 05/22/17 18:21 77 16 116/49 (71) 95 Nasal Cannula 2.00 05/22/17 18:17 94 Nasal Cannula 2.00 05/22/17 18:17 92 Room Air 2.00 05/22/17 18:16 89 Room Air 05/22/17 13:32 99.2 86 14 174/74 (107) 95 Physical Exam GENERAL: Well-nourished, well-developed patient who is sitting up in ED gurney, talkative and conversant. SKIN: Warm and dry. Calciphylaxis lesions as per discussion below HEAD: Atraumatic. Normocephalic. EYES: Pupils equal and round, reactive. ENT: No nasal bleeding or discharge. Mucous membranes pink and moist. Edentulous. Mild pharyngeal erythema, no thrush. NECK: Trachea midline. No JVD. CARDIOVASCULAR: Regular rate and rhythm. No murmurs rubs or gallops. RESPIRATORY: Breathing comfortable on NC. Rales r base. No wheezes or rhonchi. GASTROINTESTINAL: Abdomen soft, with tenderness in LUQ, no rebound or guarding. 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 Bowel sounds are present. MUSCULOSKELETAL: Extremities without clubbing, cyanosis. S/p R BKA with stump well healed.Left leg with 1+ edema and venous stasis changes. NEUROLOGICAL: Awake and alert. Motor grossly within normal limits.Normal speech. Moves all extremities without focal deficit. Laboratory Laboratory Tests Test 05/22/17 18:20 White Blood Count 11.6 Red Blood Count 3.84 Hemoglobin 12.0 Hematocrit 36.4 Mean Corpuscular Volume 94.8 Mean Corpuscular Hemoglobin 31.2 Mean Corpuscular Hemoglobin Concent 32.9 Red Cell Distribution Width 16.6 Platelet Count 257 Mean Platelet Volume 7.9 Neutrophils (%) (Auto) 87.1 Lymphocytes (%) (Auto) 4.7 Monocytes (%) (Auto) 7.1 Eosinophils (%) (Auto) 0.4 Basophils (%) (Auto) 0.7 Neutrophils # (Auto) 10.1 Lymphocytes # (Auto) 0.5 Monocytes # (Auto) 0.8 Eosinophils # (Auto) 0.0 Basophils # (Auto) 0.1 CBC Comment DIFF FINAL Differential Comment Blood Urea Nitrogen 99 Creatinine 12.61 Random Glucose 265 Total Protein 8.0 Albumin 3.1 Calcium Level 9.3 Alkaline Phosphatase 135 Aspartate Amino Transf (AST/SGOT) 8 Alanine Aminotransferase (ALT/SGPT) 12 Total Bilirubin 0.5 Sodium Level 123 Potassium Level 7.3 Chloride Level 91 Carbon Dioxide Level 15.9 Anion Gap 16 Estimat Glomerular Filtration Rate 3 Lactic Acid Level 1.0 Lipase 167 Result Diagram: 05/22/17181905/22/171819 Caprini VTE Risk Assessment Caprini VTE Risk Assessment: Mod/High Risk (score >= 2) VTE Pharm Contraindication: pork allergy can't take heparin. ESRD so other anticoagulants relatively contraindicated. Caprini Risk Assessment Model Point Value = 1 Point Value = 2 Point Value = 3 Point Value = 5 Age 41-60 Minor surgery BMI > 25 kg/m2 Swollen legs Varicose veins or History of unexplained or recurrent spontaneous Oral contraceptives or hormone replacement Sepsis (< 1 month) Serious lung disease, including pneumonia (< 1 month) Abnormal pulmonary function Acute myocardial infarction Congestive heart failure (< 1 month) History of inflammatory bowel disease Medical patient at bed rest Age 61-74 Arthroscopic surgery Major open surgery (> 45 min) Laparoscopic surgery (> 45 min) Malignancy Confined to bed (> 72 hours) Immobilizing plaster cast Central venous access Age >= 75 History of VTE Family history of VTE Factor V Leiden Prothrombin [id number] Lupus anticoagulant Anticardiolipin antibodies Elevated serum homocysteine Heparin-induced thrombocytopenia Other congenital or acquired thrombophilia Stroke (< 1 month) Elective arthroplasty Hip, pelvis, or leg fracture Acute spinal cord injury (< 1 month) Prophylaxis Regimen Total Risk Factor Score Risk Level Prophylaxis Regimen 0-1 Low Early ambulation 2 Moderate Order ONE of the following: *Sequential Compression Device (SCD) *Heparin 5000 units SQ BID 3-4 Higher Order ONE of the following medications: *Heparin 5000 units SQ TID *Enoxaparin/Lovenox 40 mg SQ daily (WT < 150 kg, CrCl > 30 mL/min) *Enoxaparin/Lovenox 30 mg SQ daily (WT < 150 kg, CrCl > 10-29 mL/min) *Enoxaparin/Lovenox 30 mg SQ BID (WT < 150 kg, CrCl > 30 mL/min) AND/OR *Sequential Compression Device (SCD) 5 or more Highest Order ONE of the following medications: *Heparin 5000 units SQ TID (Preferred with Epidurals) *Enoxaparin/Lovenox 40 mg SQ daily (WT < 150 kg, CrCl > 30 mL/min) *Enoxaparin/Lovenox 30 mg SQ daily (WT < 150 kg, CrCl > 10-29 mL/min) *Enoxaparin/Lovenox 30 mg SQ BID (WT < 150 kg, CrCl > 30 mL/min) AND *Sequential Compression Device (SCD) Assessment and Plan Problem List: (1) Depression ICD Code: F32.9 - Major depressive disorder, single episode, unspecified Status: Chronic (2) Anxiety ICD Code: F41.9 - Anxiety disorder, unspecified Status: Chronic (3) Diabetes ICD Code: E11.9 - Type 2 diabetes mellitus without complications Status: Chronic (4) PAD (peripheral artery disease) ICD Code: I73.9 - Peripheral vascular disease, unspecified Status: Acute Permanent Comment: 10/2015 -Dr. Santillan - PAD - Rt calf/foot - angiogram done. Chronic total occlusion of AT with right AT Ath/[employer] on 09/23/15. Right great toe not healing. Discoloration 4th toe. Dr. Garvey podiatry referral. Ultrasound 3 months for post procedure. If ok then Q6 months us with office visit. Last Edited By: Jude Ron on Oct 20, 2015 15:58 (5) Tobacco abuse ICD Code: Z72.0 - Tobacco use Status: Chronic (6) Diabetic retinopathy ICD Code: E11.319 - Type 2 diabetes mellitus with unspecified diabetic retinopathy without macular edema Status: Chronic (7) ESRD (end stage renal disease) on dialysis ICD Code: N18.6 - End stage renal disease; Z99.2 - Dependence on renal dialysis Status: Chronic (8) Calciphylaxis ICD Code: E83.59 - Other disorders of calcium metabolism Status: Acute (9) Abdominal pain, LUQ ICD Code: R10.12 - Left upper quadrant pain (10) Hypertension ICD Code: I10 - Essential (primary) hypertension Status: Acute Assessment and Plan NEURO: Depression Peripheral neuropathy Lortab as needed for pain Continue gabapentin 6 mg by mouth 3 times a day Continue sertraline 100 mg by mouth daily Continue trazodone 50 g by mouth daily at bedtime RESP: NC wean as tolerated CV: Hypertension Hyperlipidemia Peripheral Arterial disease Monitor hemodynamics Coreg 6.25 mill grams by mouth twice a day Continue Plavix 75 mg by mouth daily GI: LUQ abdominal pain - Unclear etiology. Abdominal exam is benign. CT noncontrast negative for acute abnormality. Noted ?spleen lesion and discussed with Dr. Alexis who states there is no spleen enlargement or inflammation. There is a nodule that was not seen on prior scan. Says could be further evaluated with IV contrasted abd/pelvis done prior to dialysis day. Was not able to perform tonight because patient had already been started on HD but scan could likely be done as an outpatient. Nausea Reglan 5 mg IV Renal diet. FEN/RENAL: ESRD Acute severe Hyperkalemia. Patient received kayexalate 15 g by mouth, calcium gluconate 1 g IV, albuterol, insulin 10 units IV in the ED. To receive emergent HD tonight. RUE fistula ID: Mild leukocytosis No apparent active infection. Patient is getting an unknown abx at dialysis. HEME: No acute hematologic issue ENDO: Diabetes mellitus Low-dose insulin sliding scale ac/hs. PROPH: She has a pork allergy, so will avoid subcut heparin. SCD LLE for DVT prophylaxis. ACCESS: PIV Consult hospitalist to assume care 05/23. Discussed with Dr. Beaulieu Level 3 H and P Problem Qualifiers (1) Diabetes: Yuliana Torres MD May 22, 2017 21:33
[2017-05-22] MEDS: METOCLOPRAMIDE HCL 10 MG/2 ML VIAL IV PUSH SCH (22:00)
[2017-05-22] MEDS: ACETAMINOPHEN/HYDROcodone 325 MG/5 MG TAB PO PRN (22:18)
[2017-05-23] VITALS (9 sets, daily range): BP systolic 114–163; BP diastolic 56–94; PULSE 68–85; RESP 13–24; TEMP 97.9–100.2; O2SAT 93–98
[2017-05-23] MEDS ORDERED: LACTULOSE SYRUP 20 GM/30 ML CUP PO PRN (01:00)
[2017-05-23] MEDS ORDERED: MISCELLANEOUS NURSING INFORMATION XX SCH (01:00)
[2017-05-23] MEDS ORDERED: SENNOSIDES 8.6 MG TAB PO PRN (01:00)
[2017-05-23] MEDS ORDERED: SODIUM CHLORIDE 0.9% FLUSH 10 ML FLUSH IV FLUSH PRN ×2 (01:00→01:15)
[2017-05-23] MEDS ORDERED: CHLORHEXIDINE GLUCONATE 2 % 1 PACK (2 CLOTHS) TOP PRN (01:00)
[2017-05-23] MEDS ORDERED: BISACODYL 10 MG SUPP RECTAL PRN (01:00)
[2017-05-23] MEDS ORDERED: MAGNESIUM HYDROXIDE SUSP 30 ML CUP PO PRN (01:00)
[2017-05-23] MEDS: GELATIN 12 MM/7 MM FOAM TOP PRN (01:00)
[2017-05-23] MEDS ORDERED: ACETAMINOPHEN 325 MG TAB PO PRN (01:15)
[2017-05-23] MEDS ORDERED: SODIUM CHLOR 0.9% 1000 ML INJ 1,000 ML IV PRN (01:15)
[2017-05-23] MEDS ORDERED: ONDANSETRON HCL 4 MG/2 ML VIAL IV PUSH PRN (01:15)
[2017-05-23] MEDS ORDERED: SODIUM CHLOR 0.9% 1000 ML INJ 1,000 ML OTHER PRN ×2 (01:15)
[2017-05-23] MEDS ORDERED: HEPARIN SODIUM - IV 10,000 UNITS/10 ML VIAL IV FLUSH PRN (01:15)
[2017-05-23] MEDS ORDERED: NITROGLYCERIN 0.4 MG SL 25 TABS/BTL SL PRN (01:15)
[2017-05-23] MEDS ORDERED: GENTAMICIN SULFATE (DIALYSIS USE ONLY) 20 MG/2 ML VIAL OTHER PRN (01:15)
[2017-05-23] MEDS ORDERED: HEPARIN SODIUM - IV 10,000 UNITS/10 ML VIAL PRN (01:15)
[2017-05-23] MEDS ORDERED: MANNITOL 12.5 GM/50 ML VIAL IV PRN (01:15)
[2017-05-23] MEDS: CHLORHEXIDINE GLUCONATE 2 % 1 PACK (2 CLOTHS) TOP SCH (03:36)
[2017-05-23] MEDS: ACETAMINOPHEN/HYDROcodone 325 MG/5 MG TAB PO PRN ×3 (04:22→20:34)
[2017-05-23] MEDS: METOCLOPRAMIDE HCL 10 MG/2 ML VIAL IV PUSH SCH ×3 (06:00→20:34)
[2017-05-23] MEDS: RESP: ALBUTEROL 2.5 MG/3 ML NEB (SCH) INH ×3 (07:26→21:44)
[2017-05-23] MEDS: DOCUSATE SODIUM 100 MG CAP PO SCH ×2 (08:47→20:49)
[2017-05-23] MEDS: CLOPIDOGREL 75 MG TAB PO SCH (08:48)
[2017-05-23] MEDS: GABAPENTIN 300 MG CAP PO SCH ×3 (08:50→18:56)
[2017-05-23] MEDS: CARVEDILOL 6.25 MG TAB PO SCH ×2 (08:50→20:34)
[2017-05-23] MEDS: DOCUSATE SODIUM 50 MG/SENNA 8.6 MG TAB PO SCH ×2 (08:50→20:49)
[2017-05-23] MEDS: PANTOPRAZOLE SOD 40 MG DELAYED RELEASE TAB PO SCH (08:50)
[2017-05-23] MEDS: SERTRALINE HCL 100 MG TAB PO SCH (08:51)
[2017-05-23] MEDS: SODIUM CHLORIDE 0.9% FLUSH 10 ML FLUSH IV FLUSH SCH ×2 (09:00→20:34)
[2017-05-23] MEDS: VITAMIN B CMPLX/VITC/FOLIC AC CAP PO SCH (09:44)
[2017-05-23] MEDS: CHOLECALCIFEROL (VIT D3) 5000 UNIT CAP PO SCH (09:44)
[2017-05-23] MEDS: SEVELAMER CARBONATE 800 MG TAB PO SCH ×3 (09:44→18:56)
[2017-05-23] MEDS ORDERED: GLUCAGON 1 MG/ML VIAL OTHER PRN (10:30)
[2017-05-23] MEDS ORDERED: DEXTROSE 50% IN WATER 50 ML VIAL(D50) IV PUSH PRN (10:30)
--- NOTE | 2017-05-23 11:27 | PD.CONS ---
HPI Service Nephrology Consult Requested By Dr. Torres Reason for Consult ESRD Primary Care Physician Venus Drummond MD History of Present Illness Patient is a 46-year-old white female with history of diabetes, peripheral vascular disease, hypertension she has been admitted with hyperkalemia after missing her dialysis she did have abdominal pain on the left side, patient states that she has a procedure done to the left leg and had ischemic left foot status post angioplasty, she missed her dialysis for past 2 treatments and presented with hyperkalemia potassium of 7.3 requiring dialysis. This was done yesterday and she did well repeat potassium was 4. Review of Systems Constitutional: COMPLAINS OF: Fatigue Cardiovascular: COMPLAINS OF: Lower Extremity Edema Gastrointestinal: COMPLAINS OF: Abdominal pain, Nausea Musculoskeletal: COMPLAINS OF: Joint pain, Stiffness, Back pain Past Family Social History Allergies: Coded Allergies: amoxicillin (Unverified Allergy, Severe, HIVES, 05/22/17) codeine (Unverified Allergy, Severe, HYPERACTIVITY &ITCH, 05/22/17) iodine (Unverified Allergy, Severe, TOPICAL/ITCH, 05/22/17) potassium iodide (Unverified Allergy, Severe, TOPICAL/ITCH, 05/22/17) povidone-iodine (Unverified Allergy, Severe, TOPICAL/ITCH, 05/22/17) sodium iodide (Unverified Allergy, Severe, TOPICAL/ITCH, 05/22/17) sodium iodide (Unverified Allergy, Severe, TOPICAL/ITCH, 05/22/17) vancomycin (Unverified Allergy, Severe, KIDNEY FAILURE, 05/22/17) iohexol (Unverified Allergy, Intermediate, HIVES, 05/22/17) Pork/Porcine Containing Products (Unverified Allergy, Unknown, 05/22/17) penicillin G (Unverified Allergy, Unknown, 05/22/17) Past Medical History ESRD Diabetes Ischemic foot Peripheral vascular disease Hypertension Noncompliant Abdominal pain previous amputation right leg Diabetic retinopathy with blindness Past Surgical History Right BKA AV fistula Left ischemic leg status post angioplasty Cholecystectomy Right upper extremity fistula Right oophorectomy due to ovarian cyst Dental extractions Tonsillectomy Reported Medications Reported Meds & Active Scripts Active Plavix (Clopidogrel Bisulfate) 75 Mg Tab 75 Mg PO DAILY Vitamin D3 (Cholecalciferol) 5,000 Unit Cap 5,000 Units PO DAILY Omeprazole 40 Mg Cap 40 Mg PO DAILY Carvedilol 6.25 Mg Tab 6.25 Mg PO BID Reported Trazodone (Trazodone HCl) 50 Mg Tab 50 Mg PO HS Sertraline (Sertraline HCl) 100 Mg Tab 100 Mg PO DAILY Renvela (Sevelamer Carbonate) 800 Mg Tab 3,200 Mg PO QIDPC Nephro-Lory (B-Complex W/ C & Folic Acid) 1 Tab 1 Tab PO DAILY Gabapentin 600 Mg Tab 600 Mg PO TID Colace (Docusate Sodium) 100 Mg Capsule 100 Mg BID Hydroxyzine HCl 10 Mg Tab 10 Mg PO Q8HR Active Ordered Medications Current Medications Medications (Trade) Dose Ordered Sig/Jen Route Start Time Stop Time Status Last Admin Albumin Human 100 ml @ 60 mls/hr UNSCH PRN IV 05/22/17 21:15 (Walsh 5-325 Mg) 1 tab Q6H PRN PO 05/22/17 21:30 05/23/17 08:49 (Walsh 5-325 Mg) 2 tab Q6H PRN PO 05/22/17 21:30 05/23/17 13:09 (NS Flush) 2 ml UNSCH PRN IV FLUSH 05/23/17 01:00 (NS Flush) 2 ml BID IV FLUSH 05/23/17 09:00 05/23/17 09:00 (Protonix) 40 mg DAILY PO 05/23/17 09:00 05/23/17 08:50 (Albuterol Neb) 2.5 mg Q6HR NEB INH 05/23/17 04:00 05/23/17 07:26 Miscellaneous Information 1 Q361D XX 05/23/17 01:00 (Chlorhexidine 2% Cloth) 3 pack Taper DAILY@04 TOP 05/23/17 04:00 05/19/18 03:59 (Chlorhexidine 2% Cloth) 3 pack UNSCH PRN TOP 05/23/17 01:00 (Areli-Colace) 1 tab BID PO 05/23/17 09:00 (Milk Of Magnesia Liq) 30 ml Q12H PRN PO 05/23/17 01:00 (Senokot) 17.2 mg Q12H PRN PO 05/23/17 01:00 (Dulcolax Supp) 10 mg DAILY PRN RECTAL 05/23/17 01:00 (Lactulose Liq) 30 ml DAILY PRN PO 05/23/17 01:00 Sodium Chloride 1,000 ml @ 0 mls/hr Q0M PRN OTHER 05/23/17 01:15 05/23/17 01:23 (Heparin Inj) 8,000 units UNSCH PRN IV FLUSH 05/23/17 01:15 Sodium Chloride 1,000 ml @ 200 mls/hr Q5H PRN IV 05/23/17 01:15 Sodium Chloride 1,000 ml @ 0 mls/hr Q0M PRN OTHER 05/23/17 01:15 (Mannitol Inj) 12.5 gm UNSCH PRN IV 05/23/17 01:15 (NS Flush) 5 ml UNSCH PRN IV FLUSH 05/23/17 01:15 (Heparin Inj) UNSCH PRN .XX 05/23/17 01:15 (Gentamicin (Dialysis) Inj) 20 mg UNSCH PRN OTHER 05/23/17 01:15 (Zofran Inj) 4 mg UNSCH PRN IV PUSH 05/23/17 01:15 (Tylenol) 650 mg UNSCH PRN PO 05/23/17 01:15 (Benadryl) 25 mg UNSCH PRN PO 05/23/17 01:15 (Nitrostat Sl) 0.4 mg UNSCH PRN SL 05/23/17 01:15 (Catapres) 0.1 mg UNSCH PRN PO 05/23/17 01:15 (Gelfoam 12 Mm/7 Mm Top) 1 foam UNSCH PRN TOP 05/23/17 01:15 05/23/17 01:00 (Coreg) 6.25 mg BID PO 05/23/17 09:00 05/23/17 08:50 (Vitamin D3) 5,000 units DAILY PO 05/23/17 09:00 05/23/17 09:44 (Plavix) 75 mg DAILY PO 05/23/17 09:00 05/23/17 08:48 (Colace) 100 mg BID PO 05/23/17 09:00 05/23/17 08:47 (Neurontin) 600 mg TID PO 05/23/17 09:00 05/23/17 13:08 (Zoloft) 100 mg DAILY PO 05/23/17 09:00 05/23/17 08:51 (Renvela) 3,200 mg TID PO 05/23/17 09:00 05/23/17 13:09 (Desyrel) 50 mg HS PO 05/23/17 21:00 (Nephrocaps) 1 cap DAILY PO 05/23/17 09:00 05/23/17 09:44 (Reglan Inj) 5 mg Q8H IV PUSH 05/23/17 12:00 05/23/17 13:08 (D50w (Vial) Inj) 50 ml UNSCH PRN IV PUSH 05/23/17 10:30 (Glucagon Inj) 1 mg UNSCH PRN OTHER 05/23/17 10:30 (NovoLOG SUPPLEMENTAL SCALE) 1 ACHS SLIDING SCALE SQ 05/23/17 12:00 05/23/17 13:07 Family History Noncontributory Social History Use of marijuana or alcohol use Physical Exam Vital Signs Vital Signs Date Time Temp Pulse Resp B/P (MAP) Pulse Ox O2 Delivery O2 Flow Rate FiO2 05/23/17 08:00 97.9 72 13 129/94 (106) 96 05/23/17 07:27 98 Nasal Cannula 2.00 05/23/17 07:00 98 Nasal Cannula 2.00 05/23/17 07:00 68 05/23/17 05:22 23 05/23/17 04:00 98.0 82 24 114/56 (75) 95 05/23/17 00:00 98.6 85 23 154/65 (94) 95 05/22/17 23:00 89 05/22/17 21:30 100 Nasal Cannula 2.00 05/22/17 21:30 98.6 73 16 135/64 (87) 100 05/22/17 21:20 98 Nasal Cannula 4.00 05/22/17 21:14 74 18 157/65 (95) 100 Nasal Cannula 2.00 05/22/17 20:00 70 18 148/65 (92) 98 Nasal Cannula 2.00 05/22/17 18:21 77 16 116/49 (71) 95 Nasal Cannula 2.00 05/22/17 18:17 94 Nasal Cannula 2.00 05/22/17 18:17 92 Room Air 2.00 05/22/17 18:16 89 Room Air 05/22/17 13:32 99.2 86 14 174/74 (107) 95 Physical Exam GENERAL: Well-nourished, well-developed patient. SKIN: Warm and dry. HEAD: Normocephalic. Eyes: Patient is legally blind NECK: Supple, trachea midline. No JVD or lymphadenopathy. CARDIOVASCULAR: Regular rate and rhythm without murmurs, gallops, or rubs. RESPIRATORY: Breath sounds equal bilaterally. No accessory muscle use. GASTROINTESTINAL: Abdomen soft, non-tender, nondistended. EXTREMITIES: No cyanosis, or edema. Right BKA left foot ischemia NEUROLOGICAL: Awake, alert, and oriented x 3. Non-focal. Laboratory Laboratory Tests Test 05/22/17 18:20 05/22/17 22:14 05/23/17 02:09 White Blood Count 11.6 Red Blood Count 3.84 Hemoglobin 12.0 Hematocrit 36.4 Mean Corpuscular Volume 94.8 Mean Corpuscular Hemoglobin 31.2 Mean Corpuscular Hemoglobin Concent 32.9 Red Cell Distribution Width 16.6 Platelet Count 257 Mean Platelet Volume 7.9 Neutrophils (%) (Auto) 87.1 Lymphocytes (%) (Auto) 4.7 Monocytes (%) (Auto) 7.1 Eosinophils (%) (Auto) 0.4 Basophils (%) (Auto) 0.7 Neutrophils # (Auto) 10.1 Lymphocytes # (Auto) 0.5 Monocytes # (Auto) 0.8 Eosinophils # (Auto) 0.0 Basophils # (Auto) 0.1 CBC Comment DIFF FINAL Differential Comment Blood Urea Nitrogen 99 Creatinine 12.61 Random Glucose 265 Total Protein 8.0 Albumin 3.1 Calcium Level 9.3 Alkaline Phosphatase 135 Aspartate Amino Transf (AST/SGOT) 8 Alanine Aminotransferase (ALT/SGPT) 12 Total Bilirubin 0.5 Sodium Level 123 Potassium Level 7.3 4.0 Chloride Level 91 Carbon Dioxide Level 15.9 Anion Gap 16 Estimat Glomerular Filtration Rate 3 Lactic Acid Level 1.0 Lipase 167 Nasal Screen MRSA (PCR) MRSA DETECTED Result Diagram: 05/22/17 1820 05/23/17 0209 Imaging Last Impressions Abdomen/Pelvis CT 05/22/17 0000 Signed Impressions: Service Date/Time: Monday, May 22, 2017 18:34 - CONCLUSION: 1. Status post cholecystectomy. 2. Atrophy of both kidneys. No hydronephrosis. 3. No acute pathology. Dennis Alexis MD Assessment and Plan Problem List: (1) ESRD (end stage renal disease) on dialysis ICD Codes: N18.6 - End stage renal disease; Z99.2 - Dependence on renal dialysis Status: Chronic Plan: she had dialysis last night, she is noncompliant and missed her dialysis told her not to miss has hyperkalemia and can lead to 3 L removed repeat K 4 next HD M,W,F (2) Hyperkalemia ICD Codes: E87.5 - Hyperkalemia Status: Resolved (3) Hypertension ICD Codes: I10 - Essential (primary) hypertension Status: Acute Plan: stable (4) Diabetes ICD Codes: E11.9 - Type 2 diabetes mellitus without complications Status: Chronic Problem Qualifiers (1) Diabetes: Gerri Gilbert MD May 23, 2017 11:27
[2017-05-23] MEDS: INSULIN ASPART SUPPLEMENTAL SCALE SQ SCH ×3 (13:07→20:34)
--- NOTE | 2017-05-23 13:57 | EKG ---
Date Performed: 05/22/2017 Time Performed: 19:42:16 PTAGE: 46 years EKG: SINUS BRADYCARDIA WITH MARKED SINUS ARRHYTHMIA POSSIBLE RIGHT VENTRICULAR HYPERTROPHY ABNOR MAL ECG Compared to PREVIOUS TRACING , sinus bradycardia and sinus arrhythmia are new. The right axis deviati on is new. Clinical correlation is advised. PREVIOUS TRACIN02/19/2017 16.03 DOCTOR: Ariadne Chatman Interpretating Date/Time 05/23/2017 13:55:16
--- NOTE | 2017-05-23 17:39 | HHI.PR ---
Subjective Remarks Patient c/o left sided abdominal pain more prominent on the left upper quadrant denies cp/sob Objective Vitals Vital Signs Date Time Temp Pulse Resp B/P (MAP) Pulse Ox O2 Delivery O2 Flow Rate FiO2 05/23/17 16:24 22 05/23/17 08:00 97.9 72 13 129/94 (106) 96 05/23/17 07:27 98 Nasal Cannula 2.00 05/23/17 07:00 98 Nasal Cannula 2.00 05/23/17 07:00 68 05/23/17 04:00 98.0 82 24 114/56 (75) 95 05/23/17 00:00 98.6 85 23 154/65 (94) 95 05/22/17 23:00 89 05/22/17 21:30 100 Nasal Cannula 2.00 05/22/17 21:30 98.6 73 16 135/64 (87) 100 05/22/17 21:20 98 Nasal Cannula 4.00 05/22/17 21:14 74 18 157/65 (95) 100 Nasal Cannula 2.00 05/22/17 20:00 70 18 148/65 (92) 98 Nasal Cannula 2.00 05/22/17 18:21 77 16 116/49 (71) 95 Nasal Cannula 2.00 05/22/17 18:17 94 Nasal Cannula 2.00 05/22/17 18:17 92 Room Air 2.00 05/22/17 18:16 89 Room Air I/O 05/22/17 05/22/17 05/22/17 05/23/17 05/23/17 05/23/17 07:00 15:00 23:00 07:00 15:00 23:00 Intake Total 240 ml Output Total 3000 ml Balance -2760 ml Intake Oral 240 ml Output Hemodialysis 3000 ml # Bowel Movements 1 Result Diagram: 05/22/17 1820 05/23/17 0209 Imaging Last Impressions Abdomen/Pelvis CT 05/22/17 0000 Signed Impressions: Service Date/Time: Monday, May 22, 2017 18:34 - CONCLUSION: 1. Status post cholecystectomy. 2. Atrophy of both kidneys. No hydronephrosis. 3. No acute pathology. Dennis Alexis MD Reviewed by me - ? hypodense lesion in the spleen? Objective Remarks AAOx3 Clear Lungs S1S2 RRR, no MRG Abdomen soft, tender to palpation of left upper quadrant and epigastric region. no edema Medications and IVs Current Medications Medications (Trade) Dose Ordered Sig/Jen Route Start Time Stop Time Status Last Admin Albumin Human 100 ml @ 60 mls/hr UNSCH PRN IV 05/22/17 21:15 (Clovis 5-325 Mg) 1 tab Q6H PRN PO 05/22/17 21:30 05/23/17 08:49 (Clovis 5-325 Mg) 2 tab Q6H PRN PO 05/22/17 21:30 05/23/17 13:09 (NS Flush) 2 ml UNSCH PRN IV FLUSH 05/23/17 01:00 (NS Flush) 2 ml BID IV FLUSH 05/23/17 09:00 05/23/17 09:00 (Protonix) 40 mg DAILY PO 05/23/17 09:00 05/23/17 08:50 (Albuterol Neb) 2.5 mg Q6HR NEB INH 05/23/17 04:00 05/23/17 15:33 Miscellaneous Information 1 Q361D XX 05/23/17 01:00 (Chlorhexidine 2% Cloth) 3 pack Taper DAILY@04 TOP 05/23/17 04:00 05/19/18 03:59 (Chlorhexidine 2% Cloth) 3 pack UNSCH PRN TOP 05/23/17 01:00 (Areli-Colace) 1 tab BID PO 05/23/17 09:00 (Milk Of Magnesia Liq) 30 ml Q12H PRN PO 05/23/17 01:00 (Senokot) 17.2 mg Q12H PRN PO 05/23/17 01:00 (Dulcolax Supp) 10 mg DAILY PRN RECTAL 05/23/17 01:00 (Lactulose Liq) 30 ml DAILY PRN PO 05/23/17 01:00 Sodium Chloride 1,000 ml @ 0 mls/hr Q0M PRN OTHER 05/23/17 01:15 05/23/17 01:23 (Heparin Inj) 8,000 units UNSCH PRN IV FLUSH 05/23/17 01:15 Sodium Chloride 1,000 ml @ 200 mls/hr Q5H PRN IV 05/23/17 01:15 Sodium Chloride 1,000 ml @ 0 mls/hr Q0M PRN OTHER 05/23/17 01:15 (Mannitol Inj) 12.5 gm UNSCH PRN IV 05/23/17 01:15 (NS Flush) 5 ml UNSCH PRN IV FLUSH 05/23/17 01:15 (Heparin Inj) UNSCH PRN .XX 05/23/17 01:15 (Gentamicin (Dialysis) Inj) 20 mg UNSCH PRN OTHER 05/23/17 01:15 (Zofran Inj) 4 mg UNSCH PRN IV PUSH 05/23/17 01:15 (Tylenol) 650 mg UNSCH PRN PO 05/23/17 01:15 (Benadryl) 25 mg UNSCH PRN PO 05/23/17 01:15 (Nitrostat Sl) 0.4 mg UNSCH PRN SL 05/23/17 01:15 (Catapres) 0.1 mg UNSCH PRN PO 05/23/17 01:15 (Gelfoam 12 Mm/7 Mm Top) 1 foam UNSCH PRN TOP 05/23/17 01:15 05/23/17 01:00 (Coreg) 6.25 mg BID PO 05/23/17 09:00 05/23/17 08:50 (Vitamin D3) 5,000 units DAILY PO 05/23/17 09:00 05/23/17 09:44 (Plavix) 75 mg DAILY PO 05/23/17 09:00 05/23/17 08:48 (Colace) 100 mg BID PO 05/23/17 09:00 05/23/17 08:47 (Neurontin) 600 mg TID PO 05/23/17 09:00 05/23/17 13:08 (Zoloft) 100 mg DAILY PO 05/23/17 09:00 05/23/17 08:51 (Renvela) 3,200 mg TID PO 05/23/17 09:00 05/23/17 13:09 (Desyrel) 50 mg HS PO 05/23/17 21:00 (Nephrocaps) 1 cap DAILY PO 05/23/17 09:00 05/23/17 09:44 (Reglan Inj) 5 mg Q8H IV PUSH 05/23/17 12:00 05/23/17 13:08 (D50w (Vial) Inj) 50 ml UNSCH PRN IV PUSH 05/23/17 10:30 (Glucagon Inj) 1 mg UNSCH PRN OTHER 05/23/17 10:30 (NovoLOG SUPPLEMENTAL SCALE) 1 ACHS SLIDING SCALE SQ 05/23/17 12:00 05/23/17 13:07 A/P Problem List: (1) Hyperkalemia ICD Code: E87.5 - Hyperkalemia Status: Resolved (2) ESRD (end stage renal disease) on dialysis ICD Code: N18.6 - End stage renal disease; Z99.2 - Dependence on renal dialysis Status: Chronic (3) Anxiety ICD Code: F41.9 - Anxiety disorder, unspecified Status: Chronic (4) Depression ICD Code: F32.9 - Major depressive disorder, single episode, unspecified Status: Chronic (5) Diabetic retinopathy ICD Code: E11.319 - Type 2 diabetes mellitus with unspecified diabetic retinopathy without macular edema Status: Chronic (6) PAD (peripheral artery disease) ICD Code: I73.9 - Peripheral vascular disease, unspecified Status: Acute Permanent Comment: 10/2015 -Dr. Santillan - PAD - Rt calf/foot - angiogram done. Chronic total occlusion of AT with right AT Ath/[employer] on 09/23/15. Right great toe not healing. Discoloration 4th toe. Dr. Garvey podiatry referral. Ultrasound 3 months for post procedure. If ok then Q6 months us with office visit. Last Edited By: Jude Ron on Oct 20, 2015 15:58 (7) Tobacco abuse ICD Code: Z72.0 - Tobacco use Status: Chronic (8) Hypertension ICD Code: I10 - Essential (primary) hypertension Status: Acute (9) Diabetes ICD Code: E11.9 - Type 2 diabetes mellitus without complications Status: Chronic (10) Abdominal pain, LUQ ICD Code: R10.12 - Left upper quadrant pain Assessment and Plan Depression Peripheral neuropathy Lortab as needed for pain Continue gabapentin 6 mg by mouth 3 times a day Continue sertraline 100 mg by mouth daily Continue trazodone 50 g by mouth daily at bedtime Hypertension Hyperlipidemia Peripheral Arterial disease Monitor hemodynamics Coreg 6.25 mill grams by mouth twice a day Continue Plavix 75 mg by mouth daily LUQ abdominal pain - Unclear etiology. Abdominal exam is benign. CT noncontrast negative for acute abnormality. Noted ?spleen lesion and discussed with Dr. Alexis who states there is no spleen enlargement or inflammation. There is a nodule that was not seen on prior scan. Says could be further evaluated with IV contrasted abd/pelvis done prior to dialysis day. Was not able to perform tonight because patient had already been started on HD but scan could likely be done as an outpatient. 05/22 Patient still with significant abdominal pain localized mostly on epigastric region and left upper quadrant. Will consult GI for further recommendations. Nausea Reglan 5 mg IV Renal diet. 05/22 Nausea much improved. Continue antiemetics as needed. FEN/RENAL: ESRD Acute severe Hyperkalemia. Patient received kayexalate 15 g by mouth, calcium gluconate 1 g IV, albuterol, insulin 10 units IV in the ED. To receive emergent HD tonight. RUE fistula 05/22 Hyperkalemia resolved after emergent hemodialysis. Mild leukocytosis Mild likely stress related. Continue to monitor cbc. Diabetes mellitus Low-dose insulin sliding scale ac/hs. Blood sugar elevated - Will change to medium SSI scale. PROPH: She has a pork allergy, so will avoid subcut heparin. SCD LLE for DVT prophylaxis. ACCESS: PIV Discharge Planning Pending nephrology clearance, cl;inical improvement of abdominal pain and GI consult. Problem Qualifiers (1) Diabetes: Vivek Gallo MD May 23, 2017 17:39
[2017-05-23] MEDS: traZODone HCL 50 MG TAB PO SCH (20:34)
[2017-05-23 22:06] LABS: BICARBONATE 28.2 MEQ/L (21.0-32.0); POTASSIUM 5.4 MEQ/L (3.5-5.1)
[2017-05-24] VITALS (8 sets, daily range): BP systolic 123–166; BP diastolic 54–77; PULSE 68–76; RESP 16–18; TEMP 97.5–98.6; O2SAT 92–100
[2017-05-24] MEDS: ACETAMINOPHEN/HYDROcodone 325 MG/5 MG TAB PO PRN ×5 (02:51→21:35)
[2017-05-24] MEDS: CHLORHEXIDINE GLUCONATE 2 % 1 PACK (2 CLOTHS) TOP SCH (03:58)
[2017-05-24] MEDS: RESP: ALBUTEROL 2.5 MG/3 ML NEB (SCH) INH ×4 (04:54→19:45)
[2017-05-24] MEDS: METOCLOPRAMIDE HCL 10 MG/2 ML VIAL IV PUSH SCH ×3 (05:06→21:35)
[2017-05-24] MEDS: SEVELAMER CARBONATE 800 MG TAB PO SCH ×3 (08:26→21:13)
[2017-05-24] MEDS: INSULIN ASPART SUPPLEMENTAL SCALE SQ SCH ×4 (08:29→21:45)
[2017-05-24] MEDS: SODIUM CHLORIDE 0.9% FLUSH 10 ML FLUSH IV FLUSH SCH ×2 (08:29→21:45)
[2017-05-24] MEDS: DOCUSATE SODIUM 100 MG CAP PO SCH ×2 (08:30→21:00)
[2017-05-24 08:55] LABS: HEMATOCRIT 30.8 % (35.0-46.0); MEAN CELL VOLUME 95.2 FL (80.0-100.0); MEAN CORPUSCULAR HEMOGLOBIN 31.6 PG (27.0-34.0); MEAN CORPUSCULAR HGB CONC 33.1 % (32.0-36.0); PLATELET COUNT 224 TH/MM3 (150-450); RED BLOOD COUNT 3.24 MIL/MM3 (4.00-5.30); RED CELL DISTRIBUTION WIDTH 16.2 % (11.6-17.2); REVIEW FLAG FINAL
[2017-05-24] MEDS: DOCUSATE SODIUM 50 MG/SENNA 8.6 MG TAB PO SCH ×2 (09:00→21:00)
[2017-05-24 09:09] LABS: BICARBONATE 23.9 MEQ/L (21.0-32.0); POTASSIUM 4.9 MEQ/L (3.5-5.1)
[2017-05-24] MEDS: VITAMIN B CMPLX/VITC/FOLIC AC CAP PO SCH (09:32)
[2017-05-24] MEDS: SERTRALINE HCL 100 MG TAB PO SCH (09:33)
[2017-05-24] MEDS: PANTOPRAZOLE SOD 40 MG DELAYED RELEASE TAB PO SCH (09:33)
[2017-05-24] MEDS: CARVEDILOL 6.25 MG TAB PO SCH ×2 (09:33→21:35)
[2017-05-24] MEDS: CHOLECALCIFEROL (VIT D3) 5000 UNIT CAP PO SCH (09:33)
[2017-05-24] MEDS: CLOPIDOGREL 75 MG TAB PO SCH (09:33)
[2017-05-24] MEDS: GABAPENTIN 300 MG CAP PO SCH ×2 (09:33→13:02)
--- NOTE | 2017-05-24 10:54 | HHI.NPPN ---
Subjective Additional Remarks ESRD with L abdominal pain Review of Systems Gastrointestinal Gastrointestinal: Abdominal Pain Objective Data Data Vital Signs Date Time Temp Pulse Resp B/P (MAP) Pulse Ox O2 Delivery O2 Flow Rate FiO2 05/24/17 10:02 97 Nasal Cannula 2.00 05/24/17 08:00 97.6 70 16 123/54 (77) 96 05/24/17 00:00 98.2 68 18 137/64 (88) 94 05/23/17 21:46 97 Nasal Cannula 2.00 05/23/17 20:50 Nasal Cannula 2.00 05/23/17 20:00 98.0 73 18 163/74 (103) 98 05/23/17 19:57 73 05/23/17 16:24 22 05/23/17 16:05 100.2 73 20 150/69 (96) 93 -: 05/24/17 0800 05/24/17 0800 Physical Exam General Appearance: Well Developed Neck Neck Exam: Neck Supple Pulmonary Resp Exam: Clear Bilaterally, Breath Sounds Equal Cardiology CV Exam: Regular, Normal Sinus Rhythm Gastrointestinal/Abdomen GI Exam: Soft GI Remarks tender left side on movement pressing on it do not illicit pain Extremeties Extremities Exam: No Edema Assessment/Plan Problem List: (1) ESRD (end stage renal disease) on dialysis ICD Codes: N18.6 - End stage renal disease; Z99.2 - Dependence on renal dialysis Status: Chronic Plan: she will be going for HD today left side Abd pain is ? muscular as aggravated by movement try Flexeril next HD M,W,F Left ischemic foot OK to discharge from nephrology point of view (2) Hyperkalemia ICD Codes: E87.5 - Hyperkalemia Status: Resolved (3) Hypertension ICD Codes: I10 - Essential (primary) hypertension Status: Acute Plan: stable (4) Diabetes ICD Codes: E11.9 - Type 2 diabetes mellitus without complications Status: Chronic Problem Qualifiers (1) Diabetes: Gerri Gilbert MD May 24, 2017 10:54
[2017-05-24] MEDS: INSULIN DETEMIR 100 UNITS/ML VIAL SQ SCH ×2 (10:57→21:45)
[2017-05-24] MEDS ORDERED: CYCLOBENZAPRINE HCL 10 MG TAB PO ONE (11:00)
--- NOTE | 2017-05-24 12:51 | PD.CONS ---
HPI History of Present Illness This is a 47 year old female with end-stage renal disease, who gets hemodialysis on Mondays, Wednesdays, and Fridays, who presented to the emergency room for evaluation for abdominal pain. She had missed her last two dialysis sessions and was noted to have multiple electrolyte abnormalities. She has since received dialysis, electrolytes have improved, and renal has cleared the patient for discharge. GI was consulted for abdominal pain. The patient reports that she had the sudden onset of abdominal pain on . This is a constant dull ache that is aggravated by any movement, especially getting out of bed to chair, or when she takes a deep breath. She did have a couple episodes of nausea/vomiting, nonbloody emesis, but has not had any for a few days. When she first had the pain, she though maybe she was constipated and took an extra stool softener. Afterwards, she had a few loose stools, but this has improved. She reports that she was recently found to have bacteremia and is supposed to be on antibiotics. She called Dr. Mason's office while I was in the room and according to the nurse Claudia, she has enterococcus in her blood and is supposed to be on Vancomycin 1 gram IV three times a week until May 30. She does have a history of GERD, but states this is well controlled with Omeprazole. She denies any melena or hematochezia. She has never had an EGD/Colonoscopy. She has a history of hepatitis C, states she just found this out, but that the dialysis clinic has known for four years. She has never been treated. CT Scan abdomen and pelvis (05/22/17)---> status post cholecystectomy, atrophy of both kidneys. No hydronephrosis, no acute pathology. (Silvana Bragg) PFSH Past Medical History End-stage renal disease, hemodialysis on Mondays, Wednesdays, Fridays Hypertension Coronary artery disease Hyperlipidemia Hepatitis C Diabetes History of gangrene requiring a right BKA Past Surgical History Cholecystectomy Right upper extremity fistula Right nephrectomy due to ovarian cyst Dental extractions Tonsillectomy (Silvana Bragg) Coded Allergies: amoxicillin (Unverified Allergy, Severe, HIVES, 05/22/17) codeine (Unverified Allergy, Severe, HYPERACTIVITY &ITCH, 05/22/17) iodine (Unverified Allergy, Severe, TOPICAL/ITCH, 05/22/17) potassium iodide (Unverified Allergy, Severe, TOPICAL/ITCH, 05/22/17) povidone-iodine (Unverified Allergy, Severe, TOPICAL/ITCH, 05/22/17) sodium iodide (Unverified Allergy, Severe, TOPICAL/ITCH, 05/22/17) sodium iodide (Unverified Allergy, Severe, TOPICAL/ITCH, 05/22/17) vancomycin (Unverified Allergy, Severe, KIDNEY FAILURE, 05/22/17) iohexol (Unverified Allergy, Intermediate, HIVES, 05/22/17) Pork/Porcine Containing Products (Unverified Allergy, Unknown, 05/22/17) penicillin G (Unverified Allergy, Unknown, 05/22/17) Medications Allergies Coded Allergies Type Severity Reaction Last Updated Verified amoxicillin Allergy Severe HIVES 05/22/17 No codeine Allergy Severe HYPERACTIVITY &ITCH 05/22/17 No iodine Allergy Severe TOPICAL/ITCH 05/22/17 No potassium iodide Allergy Severe TOPICAL/ITCH 05/22/17 No povidone-iodine Allergy Severe TOPICAL/ITCH 05/22/17 No sodium iodide Allergy Severe TOPICAL/ITCH 05/22/17 No sodium iodide Allergy Severe TOPICAL/ITCH 05/22/17 No vancomycin Allergy Severe KIDNEY FAILURE 05/22/17 No iohexol Allergy Intermediate HIVES 05/22/17 No Pork/Porcine Containing Products Allergy Unknown 05/22/17 No penicillin G Allergy Unknown 05/22/17 No Active Scripts Medications Dose Route/Sig Max Daily Dose Days Date Category Plavix (Clopidogrel Bisulfate) 75 Mg Tab 75 Mg PO DAILY 02/27/17 Rx Vitamin D3 (Cholecalciferol) 5,000 Unit Cap 5,000 Units PO DAILY 02/27/17 Rx Omeprazole 40 Mg Cap 40 Mg PO DAILY 02/20/17 Rx Carvedilol 6.25 Mg Tab 6.25 Mg PO BID 02/14/17 Rx Trazodone (Trazodone HCl) 50 Mg Tab 50 Mg PO HS 02/14/17 Reported Sertraline (Sertraline HCl) 100 Mg Tab 100 Mg PO DAILY 02/14/17 Reported Renvela (Sevelamer Carbonate) 800 Mg Tab 3,200 Mg PO QIDPC 02/14/17 Reported Nephro-Lory (B-Complex W/ C & Folic Acid) 1 Tab 1 Tab PO DAILY 02/14/17 Reported Gabapentin 600 Mg Tab 600 Mg PO TID 02/14/17 Reported Colace (Docusate Sodium) 100 Mg Capsule 100 Mg BID 02/14/17 Reported Hydroxyzine HCl 10 Mg Tab 10 Mg PO Q8HR 02/14/17 Reported Family History Father had HTN, DM, of leukemia at age 64 Mother has diabetes and hypertension and is still living at age 65 Social History She smokes 2 to 3 black and mild per day Use marijuana Denies use of alcohol States she has a prior history of IV drug use but quit 6 months ago (Silvana Bragg) Review of Systems Constitutional: COMPLAINS OF: Fatigue, DENIES: Fever, Chills, Change in appetite Respiratory: COMPLAINS OF: Cough Gastrointestinal: COMPLAINS OF: Abdominal pain, Nausea, Vomiting, DENIES: Black stools, Bloody stools, Constipation, Diarrhea, Swelling of Abdomen, Heartburn, Hematemesis Musculoskeletal: COMPLAINS OF: Back pain Hematologic/lymphatic: COMPLAINS OF: Bruising Neurologic: DENIES: Headache Psychiatric: DENIES: Confusion (Silvana Bragg) GI Exam Vitals I&O Vital Signs Date Time Temp Pulse Resp B/P (MAP) Pulse Ox O2 Delivery O2 Flow Rate FiO2 05/24/17 12:00 97.5 71 16 93 05/24/17 10:02 97 Nasal Cannula 2.00 05/24/17 08:00 97.6 70 16 123/54 (77) 96 05/24/17 00:00 98.2 68 18 137/64 (88) 94 05/23/17 21:46 97 Nasal Cannula 2.00 05/23/17 20:50 Nasal Cannula 2.00 05/23/17 20:00 98.0 73 18 163/74 (103) 98 05/23/17 19:57 73 05/23/17 16:24 22 05/23/17 16:05 100.2 73 20 150/69 (96) 93 I/O 05/23/17 05/23/17 05/23/17 05/24/17 05/24/17 05/24/17 07:00 15:00 23:00 07:00 15:00 23:00 Intake Total 240 ml 360 ml Output Total 3000 ml Balance -2760 ml 360 ml Intake Oral 240 ml 360 ml Output Hemodialysis 3000 ml # Voids 0 # Bowel Movements 1 1 Imaging Last Impressions Abdomen/Pelvis CT 05/22/17 0000 Signed Impressions: Service Date/Time: Monday, May 22, 2017 18:34 - CONCLUSION: 1. Status post cholecystectomy. 2. Atrophy of both kidneys. No hydronephrosis. 3. No acute pathology. Dennis Alexis MD Laboratory Test 05/23/17 21:30 05/24/17 08:00 Blood Urea Nitrogen 65 MG/DL 65 MG/DL Creatinine 9.54 MG/DL 9.80 MG/DL Random Glucose 257 MG/DL 229 MG/DL Calcium Level 8.7 MG/DL 9.3 MG/DL Sodium Level 131 MEQ/L 131 MEQ/L Potassium Level 5.4 MEQ/L 4.9 MEQ/L Chloride Level 95 MEQ/L 94 MEQ/L Carbon Dioxide Level 28.2 MEQ/L 23.9 MEQ/L Anion Gap 8 MEQ/L 13 MEQ/L Estimat Glomerular Filtration Rate 4 ML/MIN 4 ML/MIN White Blood Count 6.0 TH/MM3 Red Blood Count 3.24 MIL/MM3 Hemoglobin 10.2 GM/DL Hematocrit 30.8 % Mean Corpuscular Volume 95.2 FL Mean Corpuscular Hemoglobin 31.6 PG Mean Corpuscular Hemoglobin Concent 33.1 % Red Cell Distribution Width 16.2 % Platelet Count 224 TH/MM3 Mean Platelet Volume 7.9 FL Physical Examination HEENT: Normocephalic; atraumatic; no jaundice. CHEST: CTA CARDIAC: RRR. ABDOMEN: Soft, obese, left upper quadrant tenderness, no hepatosplenomegaly; bowel sounds are present in all four quadrants. EXTREMITIES: Right BKA SKIN: Normal; no rash; no jaundice. 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 (Silvana Bragg) Assessment and Plan Plan ASSESSMENT: - Abdominal pain. CT Scan abdomen and pelvis (05/22/17)---> status post cholecystectomy, atrophy of both kidneys. No hydronephrosis, no acute pathology. Her pain is aggravated by deep breath, getting out of bed and movement. No relation to food intake. She did have n/v a few days ago, but also missed her HD and had electrolyte abnormalities. Has GERD, states well controlled. Unsure if she has had EGD. Never had colonoscopy. ? Musculoskeletal vs. other. If symptoms persist and she is still here over weekend, could plan for EGD/ Colonoscopy. Otherwise this could be done as outpatient. - N/V, resolved. - GERD. PPI - HCV. Tx naive. Records in computer were negative, but back in 2003, Will get genotype and viral load - Anemia, mild. 10.2/30.8. - ESRD with electrolyte abnormalities. HD Mondays/Wednesdays/Fridays. - Recent bacteremia. Pt called Dr. Mason's office while I was in the room and according to the nurse Claudia, she has enterococcus in her blood and is supposed to be on Vancomycin 1 gram IV three times a week until May 30. - Anxiety, Depression, DM, HTN, PAD, per attending. PLAN: - REYES - PPI - HCV Genotype/Viral load - Abdominal pain of unclear etiology, ? Musculoskeletal vs. other. If remains in hospital over weekend and still symptomatic, could plan for EGD/Colonoscopy Saturday, otherwise she could follow up in office as outpatient - Pt seen and examined by Dr. 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 Colonoscopy next week inpt. vs. outpt. Discussed with pt. Thank you (Zhang Ron MD) Silvana Bragg May 24, 2017 12:51 Zhang Ron MD May 24, 2017 15:20
--- NOTE | 2017-05-24 18:24 | HHI.PR ---
Subjective Remarks patient still c/o of abdominal pain denies cp/sob still c/o of significant left upper quadrant pain radiating to the left flank associated sometimes with nausea. denies fevers or chills pain is worst with deep inspiration. Objective Vitals Vital Signs Date Time Temp Pulse Resp B/P (MAP) Pulse Ox O2 Delivery O2 Flow Rate FiO2 05/24/17 12:00 97.5 71 16 93 05/24/17 10:02 97 Nasal Cannula 2.00 05/24/17 08:03 Room Air 05/24/17 08:03 76 05/24/17 08:00 97.6 70 16 123/54 (77) 96 05/24/17 00:00 98.2 68 18 137/64 (88) 94 05/23/17 21:46 97 Nasal Cannula 2.00 05/23/17 20:50 Nasal Cannula 2.00 05/23/17 20:00 98.0 73 18 163/74 (103) 98 05/23/17 19:57 73 I/O 05/23/17 05/23/17 05/23/17 05/24/17 05/24/17 05/24/17 07:00 15:00 23:00 07:00 15:00 23:00 Intake Total 240 ml 360 ml 720 ml Output Total 3000 ml Balance -2760 ml 360 ml 720 ml Intake Oral 240 ml 360 ml 720 ml Output Hemodialysis 3000 ml # Voids 0 # Bowel Movements 1 1 1 Result Diagram: 05/24/17 0800 05/24/17 0800 Imaging Last Impressions Abdomen/Pelvis CT 05/22/17 0000 Signed Impressions: Service Date/Time: Monday, May 22, 2017 18:34 - CONCLUSION: 1. Status post cholecystectomy. 2. Atrophy of both kidneys. No hydronephrosis. 3. No acute pathology. Dennis Alexis MD Objective Remarks AAOx3 Clear Lungs S1S2 RRR, no MRG Abdomen soft, tender to palpation of left upper quadrant and epigastric region. There are some calcifications which are tender to palpation on the lower abdomen. no edema Medications and IVs Current Medications Medications (Trade) Dose Ordered Sig/Jen Route Start Time Stop Time Status Last Admin Albumin Human 100 ml @ 60 mls/hr UNSCH PRN IV 05/22/17 21:15 ([place] 5-325 Mg) 1 tab Q6H PRN PO 05/22/17 21:30 05/23/17 08:49 ([place] 5-325 Mg) 2 tab Q6H PRN PO 05/22/17 21:30 05/24/17 13:43 (NS Flush) 2 ml UNSCH PRN IV FLUSH 05/23/17 01:00 (NS Flush) 2 ml BID IV FLUSH 05/23/17 09:00 05/24/17 08:29 (Protonix) 40 mg DAILY PO 05/23/17 09:00 05/24/17 09:33 (Albuterol Neb) 2.5 mg Q6HR NEB INH 05/23/17 04:00 05/24/17 10:00 Miscellaneous Information 1 Q361D XX 05/23/17 01:00 (Chlorhexidine 2% Cloth) 3 pack Taper DAILY@04 TOP 05/23/17 04:00 05/19/18 03:59 (Chlorhexidine 2% Cloth) 3 pack UNSCH PRN TOP 05/23/17 01:00 (Areli-Colace) 1 tab BID PO 05/23/17 09:00 (Milk Of Magnesia Liq) 30 ml Q12H PRN PO 05/23/17 01:00 (Senokot) 17.2 mg Q12H PRN PO 05/23/17 01:00 (Dulcolax Supp) 10 mg DAILY PRN RECTAL 05/23/17 01:00 (Lactulose Liq) 30 ml DAILY PRN PO 05/23/17 01:00 Sodium Chloride 1,000 ml @ 0 mls/hr Q0M PRN OTHER 05/23/17 01:15 05/23/17 01:23 (Heparin Inj) 8,000 units UNSCH PRN IV FLUSH 05/23/17 01:15 Sodium Chloride 1,000 ml @ 200 mls/hr Q5H PRN IV 05/23/17 01:15 Sodium Chloride 1,000 ml @ 0 mls/hr Q0M PRN OTHER 05/23/17 01:15 (Mannitol Inj) 12.5 gm UNSCH PRN IV 05/23/17 01:15 (NS Flush) 5 ml UNSCH PRN IV FLUSH 05/23/17 01:15 (Heparin Inj) UNSCH PRN .XX 05/23/17 01:15 (Gentamicin (Dialysis) Inj) 20 mg UNSCH PRN OTHER 05/23/17 01:15 (Zofran Inj) 4 mg UNSCH PRN IV PUSH 05/23/17 01:15 (Tylenol) 650 mg UNSCH PRN PO 05/23/17 01:15 (Benadryl) 25 mg UNSCH PRN PO 05/23/17 01:15 (Nitrostat Sl) 0.4 mg UNSCH PRN SL 05/23/17 01:15 (Catapres) 0.1 mg UNSCH PRN PO 05/23/17 01:15 (Gelfoam 12 Mm/7 Mm Top) 1 foam UNSCH PRN TOP 05/23/17 01:15 05/23/17 01:00 (Coreg) 6.25 mg BID PO 05/23/17 09:00 05/24/17 09:33 (Vitamin D3) 5,000 units DAILY PO 05/23/17 09:00 05/24/17 09:33 (Plavix) 75 mg DAILY PO 05/23/17 09:00 05/24/17 09:33 (Colace) 100 mg BID PO 05/23/17 09:00 05/23/17 08:47 (Zoloft) 100 mg DAILY PO 05/23/17 09:00 05/24/17 09:33 (Renvela) 3,200 mg TID PO 05/23/17 09:00 05/24/17 13:02 (Desyrel) 50 mg HS PO 05/23/17 21:00 05/23/17 20:34 (Nephrocaps) 1 cap DAILY PO 05/23/17 09:00 05/24/17 09:32 (Reglan Inj) 5 mg Q8H IV PUSH 05/23/17 12:00 05/24/17 13:03 (D50w (Vial) Inj) 50 ml UNSCH PRN IV PUSH 05/23/17 10:30 (Glucagon Inj) 1 mg UNSCH PRN OTHER 05/23/17 10:30 (NovoLOG SUPPLEMENTAL SCALE) 1 ACHS SLIDING SCALE SQ 05/23/17 12:00 05/24/17 13:03 (Levemir Inj) 10 units Q12HR SQ 05/24/17 10:45 05/24/17 10:57 (Neurontin) 300 mg Q24H PO 05/25/17 13:00 Urinary Catheter: No Vascular Central Line Catheter: No A/P Problem List: (1) Hyperkalemia ICD Code: E87.5 - Hyperkalemia Status: Resolved (2) ESRD (end stage renal disease) on dialysis ICD Code: N18.6 - End stage renal disease; Z99.2 - Dependence on renal dialysis Status: Chronic (3) Anxiety ICD Code: F41.9 - Anxiety disorder, unspecified Status: Chronic (4) Depression ICD Code: F32.9 - Major depressive disorder, single episode, unspecified Status: Chronic (5) Diabetic retinopathy ICD Code: E11.319 - Type 2 diabetes mellitus with unspecified diabetic retinopathy without macular edema Status: Chronic (6) PAD (peripheral artery disease) ICD Code: I73.9 - Peripheral vascular disease, unspecified Status: Acute Permanent Comment: 10/2015 -Dr. Santillan - PAD - Rt calf/foot - angiogram done. Chronic total occlusion of AT with right AT Ath/CLEARANCE REP on 09/23/15. Right great toe not healing. Discoloration 4th toe. Dr. Garvey podiatry referral. Ultrasound 3 months for post procedure. If ok then Q6 months us with office visit. Last Edited By: Jude Ron on Oct 20, 2015 15:58 (7) Tobacco abuse ICD Code: Z72.0 - Tobacco use Status: Chronic (8) Hypertension ICD Code: I10 - Essential (primary) hypertension Status: Acute (9) Diabetes ICD Code: E11.9 - Type 2 diabetes mellitus without complications Status: Chronic (10) Abdominal pain, LUQ ICD Code: R10.12 - Left upper quadrant pain Assessment and Plan Depression Peripheral neuropathy Lortab as needed for pain Continue gabapentin 6 mg by mouth 3 times a day Continue sertraline 100 mg by mouth daily Continue trazodone 50 g by mouth daily at bedtime Hypertension Hyperlipidemia Peripheral Arterial disease Monitor hemodynamics Coreg 6.25 mill grams by mouth twice a day Continue Plavix 75 mg by mouth daily LUQ abdominal pain - Unclear etiology. Abdominal exam is benign. CT noncontrast negative for acute abnormality. Noted ?spleen lesion and discussed with Dr. Alexis who states there is no spleen enlargement or inflammation. There is a nodule that was not seen on prior scan. Says could be further evaluated with IV contrasted abd/pelvis done prior to dialysis day. Was not able to perform tonight because patient had already been started on HD but scan could likely be done as an outpatient. 05/22 Patient still with significant abdominal pain localized mostly on epigastric region and left upper quadrant. Will consult GI for further recommendations. 05/24 appreciate GI consultation recommendations. The case was discussed with Silvana Bragg. The patient stated that she had an infection for which she was treated with IV vancomycin. Silvana Bragg confirm this with the patient's extension work director office. The patient was on vancomycin 1 g 2 times a week with dialysis. I called the patient's extension work director, Dr Mason that indeed confirmed that she was being treated with IV vancomycin. He also stated that the patient has calciphylaxis for which she has been getting sodium thiosulfate after hemodialysis, however he also states that she the patient is very noncompliant and she often misses her dialysis treatments with insulin hyperkalemia and hyperphosphatemia. I will check phosphorus. 05/25 Patient still with significant abdominal pain. I will order a CT abdomen and pelvis w IV contrast. Case discussed with Dr Mejia who agrees that this exam could be done at any time. Possible EGD colonoscopy on saturday. Nausea Reglan 5 mg IV Renal diet. 05/22 Nausea much improved. Continue antiemetics as needed. FEN/RENAL: ESRD Acute severe Hyperkalemia. Patient received kayexalate 15 g by mouth, calcium gluconate 1 g IV, albuterol, insulin 10 units IV in the ED. To receive emergent HD tonight. RUE fistula 05/22 Hyperkalemia resolved after emergent hemodialysis. Mild leukocytosis Mild likely stress related. Continue to monitor cbc. Diabetes mellitus Low-dose insulin sliding scale ac/hs. Blood sugar elevated - Will change to medium SSI scale. 05/24 patient has uncontrolled blood sugars in the 200s. I will start the patient on insulin Levemir 10 units subcutaneous twice a day and continue SSI NovoLog scale. 05/25 Blood sugar still very elevated in the 200's. Will increase Levemir dose to 15 units SQ BID, start prandial insulin with 3 units TID before meals. Continue sliding scale. Bacteremia Patient was being treated for enterococcus bacteremia as per report with vancomycin 1 g 3 times a week. I will resume IV vancomycin. This was discussed with the patient outpatient's extension work director, Dr. Mason. Calciphylaxis Patient has been treated with sodium thiosulfate after hemodialysis. Abdominal pain could be secondary to this. 05/25 Discussed with nephrology who will prescribe Sodium thiosulfate with HD. PROPH: She has a pork allergy, so will avoid subcut heparin. SCD LLE for DVT prophylaxis. ACCESS: PIV Discharge Planning Patient has been cleared by nephrology. However still complaining of abdominal pain. Problem Qualifiers (1) Diabetes: Vivek Gallo MD May 24, 2017 18:24
[2017-05-24] MEDS ORDERED: VANCOMYCIN INJ 1,000 MG in SODIUM CHLOR 0.9% 250 ML INJ 250 ML IV SCH (20:30)
[2017-05-24] MEDS ORDERED: VANCOMYCIN INJ 1,000 MG in SODIUM CHLOR 0.9% 250 ML INJ 250 ML IV ONE (20:30)
[2017-05-24] MEDS: traZODone HCL 50 MG TAB PO SCH (21:34)
[2017-05-25] VITALS (8 sets, daily range): BP systolic 132–166; BP diastolic 58–73; PULSE 68–86; RESP 16–20; TEMP 98–98.8; O2SAT 94–99
[2017-05-25] MEDS: CHLORHEXIDINE GLUCONATE 2 % 1 PACK (2 CLOTHS) TOP SCH (04:00)
[2017-05-25] MEDS: RESP: ALBUTEROL 2.5 MG/3 ML NEB (SCH) INH ×4 (04:33→20:34)
[2017-05-25] MEDS: ACETAMINOPHEN/HYDROcodone 325 MG/5 MG TAB PO PRN ×3 (05:37→18:29)
[2017-05-25] MEDS: METOCLOPRAMIDE HCL 10 MG/2 ML VIAL IV PUSH SCH ×3 (05:40→20:00)
[2017-05-25] MEDS: INSULIN ASPART SUPPLEMENTAL SCALE SQ SCH ×4 (08:00→22:37)
[2017-05-25] MEDS: VITAMIN B CMPLX/VITC/FOLIC AC CAP PO SCH (09:00)
[2017-05-25] MEDS: INSULIN DETEMIR 100 UNITS/ML VIAL SQ SCH ×2 (09:00→22:36)
[2017-05-25 09:30] LABS: HEMATOCRIT 30.4 % (35.0-46.0); MEAN CELL VOLUME 94.4 FL (80.0-100.0); MEAN CORPUSCULAR HEMOGLOBIN 31.1 PG (27.0-34.0); PLATELET COUNT 262 TH/MM3 (150-450); RED BLOOD COUNT 3.22 MIL/MM3 (4.00-5.30); RED CELL DISTRIBUTION WIDTH 16.6 % (11.6-17.2); REVIEW FLAG FINAL; WHITE BLOOD COUNT 7.2 TH/MM3 (4.0-11.0)
[2017-05-25] MEDS: SEVELAMER CARBONATE 800 MG TAB PO SCH ×3 (09:35→18:26)
[2017-05-25] MEDS: CLOPIDOGREL 75 MG TAB PO SCH (09:36)
[2017-05-25] MEDS: SERTRALINE HCL 100 MG TAB PO SCH (09:36)
[2017-05-25] MEDS: PANTOPRAZOLE SOD 40 MG DELAYED RELEASE TAB PO SCH (09:36)
[2017-05-25] MEDS: DOCUSATE SODIUM 100 MG CAP PO SCH ×2 (09:36→21:00)
[2017-05-25] MEDS: CHOLECALCIFEROL (VIT D3) 5000 UNIT CAP PO SCH (09:36)
[2017-05-25] MEDS: DOCUSATE SODIUM 50 MG/SENNA 8.6 MG TAB PO SCH ×2 (09:37→21:00)
[2017-05-25] MEDS: CARVEDILOL 6.25 MG TAB PO SCH ×2 (09:37→22:34)
[2017-05-25] MEDS: SODIUM CHLORIDE 0.9% FLUSH 10 ML FLUSH IV FLUSH SCH ×2 (09:39→21:00)
[2017-05-25 10:09] LABS: BICARBONATE 29.1 MEQ/L (21.0-32.0); POTASSIUM 4.9 MEQ/L (3.5-5.1)
[2017-05-25] MEDS: GABAPENTIN 300 MG CAP PO SCH (12:40)
--- NOTE | 2017-05-25 14:04 | HHI.NPPN ---
Subjective Additional Remarks ESRD with L abdominal pain. Ongoing pains at left side Review of Systems Gastrointestinal Gastrointestinal: Abdominal Pain Objective Data Data Vital Signs Date Time Temp Pulse Resp B/P (MAP) Pulse Ox O2 Delivery O2 Flow Rate FiO2 05/25/17 12:02 98.4 69 18 138/62 (87) 99 05/25/17 11:52 99 Nasal Cannula 2.00 05/25/17 09:00 97 Nasal Cannula 2.00 05/25/17 08:02 98.0 68 18 133/60 (84) 97 05/25/17 04:00 98.2 71 17 140/58 (85) 95 05/25/17 00:00 98.5 72 16 142/66 (91) 95 05/24/17 22:03 Nasal Cannula 2.00 05/24/17 20:00 98.6 74 16 166/77 (106) 100 05/24/17 19:50 73 05/24/17 19:48 92 Nasal Cannula 2.00 -: 05/25/17 0837 05/25/17 0837 Physical Exam General Appearance: Well Developed Neck Neck Exam: Neck Supple Pulmonary Resp Exam: Clear Bilaterally, Breath Sounds Equal Cardiology CV Exam: Regular, Normal Sinus Rhythm Gastrointestinal/Abdomen GI Exam: Soft Extremeties Extremities Exam: No Edema Assessment/Plan Problem List: (1) ESRD (end stage renal disease) on dialysis ICD Codes: N18.6 - End stage renal disease; Z99.2 - Dependence on renal dialysis Status: Chronic Plan: HD done yesterday, next HD Saturday left side Abd pain is possibly muscular, as aggravated by movement Flexeril started continue HD M,W,F Left ischemic foot Apparently has been on sodium thiosuflate as outpatient for calciphylaxis, will continue here. (2) Hyperkalemia ICD Codes: E87.5 - Hyperkalemia Status: Resolved Plan: stable now, HD MWF (3) Hypertension ICD Codes: I10 - Essential (primary) hypertension Status: Acute Plan: stable (4) Diabetes ICD Codes: E11.9 - Type 2 diabetes mellitus without complications Status: Chronic Problem Qualifiers (1) Diabetes: Odilon Mejia MD May 25, 2017 14:04
[2017-05-25] MEDS ORDERED: GLUCAGON 1 MG/ML VIAL OTHER PRN (15:30)
[2017-05-25] MEDS ORDERED: DEXTROSE 50% IN WATER 50 ML VIAL(D50) IV PUSH PRN (15:30)
[2017-05-25] MEDS ORDERED: DIATRIZOATE MEGLUM/DIATRIZOATE SOD 9 ML CUP PO ONE (16:00)
[2017-05-25] MEDS: CALCIUM ACETATE 667 MG CAP PO SCH (18:26)
[2017-05-25] MEDS: traZODone HCL 50 MG TAB PO SCH (22:36)
[2017-05-26] VITALS (8 sets, daily range): BP systolic 141–192; BP diastolic 63–100; PULSE 67–80; RESP 16–18; TEMP 98.1–99.3; O2SAT 94–96
[2017-05-26] MEDS: ACETAMINOPHEN/HYDROcodone 325 MG/5 MG TAB PO PRN ×4 (00:40→18:48)
[2017-05-26] MEDS: predniSONE 50 MG TAB PO SCH ×3 (00:40→12:25)
[2017-05-26] MEDS: CHLORHEXIDINE GLUCONATE 2 % 1 PACK (2 CLOTHS) TOP SCH (04:00)
[2017-05-26] MEDS: RESP: ALBUTEROL 2.5 MG/3 ML NEB (SCH) INH ×4 (04:02→20:11)
[2017-05-26] MEDS: METOCLOPRAMIDE HCL 10 MG/2 ML VIAL IV PUSH SCH ×3 (06:36→19:23)
[2017-05-26] MEDS: INSULIN ASPART SUPPLEMENTAL SCALE SQ SCH ×4 (08:00→21:29)
[2017-05-26 08:23] LABS: POTASSIUM 6.3 MEQ/L (3.5-5.1)
[2017-05-26] MEDS: CLOPIDOGREL 75 MG TAB PO SCH (08:34)
[2017-05-26] MEDS: DOCUSATE SODIUM 100 MG CAP PO SCH ×2 (08:34→21:00)
[2017-05-26] MEDS: PANTOPRAZOLE SOD 40 MG DELAYED RELEASE TAB PO SCH (08:34)
[2017-05-26] MEDS: VITAMIN B CMPLX/VITC/FOLIC AC CAP PO SCH (08:34)
[2017-05-26] MEDS: DOCUSATE SODIUM 50 MG/SENNA 8.6 MG TAB PO SCH ×2 (08:34→21:00)
[2017-05-26] MEDS: CHOLECALCIFEROL (VIT D3) 5000 UNIT CAP PO SCH (08:34)
[2017-05-26] MEDS: SERTRALINE HCL 100 MG TAB PO SCH (08:34)
[2017-05-26] MEDS: CARVEDILOL 6.25 MG TAB PO SCH ×2 (08:35→21:28)
[2017-05-26] MEDS: CALCIUM ACETATE 667 MG CAP PO SCH ×3 (08:35→13:58)
[2017-05-26] MEDS: INSULIN DETEMIR 100 UNITS/ML VIAL SQ SCH ×2 (08:37→21:28)
[2017-05-26] MEDS: SODIUM CHLORIDE 0.9% FLUSH 10 ML FLUSH IV FLUSH SCH ×2 (08:37→21:00)
[2017-05-26] MEDS: SEVELAMER CARBONATE 800 MG TAB PO SCH ×3 (08:47→13:57)
--- NOTE | 2017-05-26 10:48 | HHI.NPPN ---
Subjective Additional Remarks ESRD with L abdominal pain. Ongoing pains at left side Review of Systems Gastrointestinal Gastrointestinal: Abdominal Pain Objective Data Data Vital Signs Date Time Temp Pulse Resp B/P (MAP) Pulse Ox O2 Delivery O2 Flow Rate FiO2 05/26/17 08:00 98.3 71 16 141/71 (94) 96 05/26/17 04:00 98.3 67 18 146/63 (90) 95 05/26/17 00:00 99.3 80 18 178/79 (112) 95 05/25/17 20:35 Nasal Cannula 2.00 05/25/17 20:34 94 Nasal Cannula 2.00 05/25/17 20:00 98.8 86 20 166/73 (104) 95 05/25/17 16:05 98.1 69 18 132/61 (84) 97 05/25/17 12:02 98.4 69 18 138/62 (87) 99 05/25/17 11:52 99 Nasal Cannula 2.00 -: 05/25/17 0837 05/26/17 0720 Physical Exam General Appearance: Well Developed Neck Neck Exam: Neck Supple Pulmonary Resp Exam: Clear Bilaterally, Breath Sounds Equal Cardiology CV Exam: Regular, Normal Sinus Rhythm Gastrointestinal/Abdomen GI Exam: Soft Extremeties Extremities Exam: No Edema Assessment/Plan Problem List: (1) ESRD (end stage renal disease) on dialysis ICD Codes: N18.6 - End stage renal disease; Z99.2 - Dependence on renal dialysis Status: Chronic Plan: HD done Saturday, next HD Saturday left side Abd pain is possibly muscular, as aggravated by movement Flexeril started Planned further endoscopy evaluation this week. CT scan today (previous CT this admission wnl) continue HD M,W,F Left ischemic foot Apparently has been on sodium thiosuflate as outpatient for calciphylaxis, will continue here (Ordered for administration at dialysis). Previous abdominal wounds are healing well. (2) Hyperkalemia ICD Codes: E87.5 - Hyperkalemia Status: Resolved Plan: elevated today - will given kayexelate. HD tomorrow. (3) Hypertension ICD Codes: I10 - Essential (primary) hypertension Status: Acute Plan: stable (4) Diabetes ICD Codes: E11.9 - Type 2 diabetes mellitus without complications Status: Chronic Problem Qualifiers (1) Diabetes: Odilon Mejia MD May 26, 2017 10:48
[2017-05-26] MEDS ORDERED: SODIUM POLYSTYRENE SULFONATE SUSP 15 GM/60 ML CUP PO ONE (11:30)
[2017-05-26] MEDS ORDERED: diphenhydrAMINE HCL 50 MG CAP PO ONE (12:00)
[2017-05-26] MEDS: GABAPENTIN 300 MG CAP PO SCH (12:08)
[2017-05-26] MEDS ORDERED: DIATRIZOATE MEGLUM/DIATRIZOATE SOD 9 ML CUP PO ONE (12:15)
[2017-05-26] MEDS ORDERED: IOHEXOL 350 MG/ML 10 ML VIAL (for RAD DIAG) IVCONTRAST ONE (13:57)
--- NOTE | 2017-05-26 15:28 | RADRPT ---
EXAM DATE/TIME: 05/26/2017 13:17 [facility] COMPARISON: CT ABDOMEN & PELVIS W/O CONTRAST, December 24, 2009, 16:45. CT ABDOMEN & PELVIS W/O CONTRAST, May 22, 2017, 18:34. INDICATIONS : Left upper abdomen pain. IV CONTRAST: 80 cc Omnipaque 350 (iohexol) IV ORAL CONTRAST: Prescribed oral contrast ingested. RADIATION DOSE: 16.79 CTDIvol (mGy) MEDICAL HISTORY : Cardiovascular disease. Diabetes mellitus type 2. Renal failure, chronic.Dialysis SURGICAL HISTORY : Cholecystectomy. ENCOUNTER: Initial ACUITY: 1 day PAIN SCALE: 5/10 LOCATION: Left upper quadrant TECHNIQUE: Volumetric scanning of the abdomen and pelvis was performed. Using automated exposure control and ad justment of the mA and/or kV according to patient size, radiation dose was kept as low as reasonably achievable to obtain optimal diagnostic quality images. DICOM format image data is available electro nically for review and comparison. FINDINGS: There is subsegmental atelectasis in the right base. There is decreased density of the liver with res pect to the spleen compatible with fatty infiltration. The spleen is unremarkable. There is a 3 cm hy podensity in the spleen of uncertain etiology not seen on the prior exam. This is wedge-shaped and li paulie reflects a splenic infarction. The gallbladder is absent. The pancreas demonstrates normal conto ur without evidence of mass or ductal dilatation. The right adrenal gland is unremarkable. There is a nodule in the left adrenal gland likely reflecting adenoma measuring 2 cm. There are atrophic calcif ied kidneys bilaterally. Examination of the pelvis demonstrates no evidence of free fluid or pelvic mass. No abnormally enlarg ed inguinal or retroperitoneal lymph nodes are present. The bladder is unremarkable. There is diverti culosis without evidence of diverticulitis. CONCLUSION: 1. Findings characteristic of acute splenic infarction. There is heavy calcification of the splenic a rtery though the celiac and superior mesenteric arteries are patent. 2. Hypodense liver compatible with fatty infiltration or hepatocellular disease. 3. Diverticulosis without evidence of diverticulitis. 4. Probable left adrenal adenoma Rhys Barker MD on May 26, 2017 at 15:19 Board Certified Radiologist. This report was verified electronically.
--- NOTE | 2017-05-26 15:29 | HHI.PR ---
Objective Vitals Vital Signs Date Time Temp Pulse Resp B/P (MAP) Pulse Ox O2 Delivery O2 Flow Rate FiO2 05/26/17 12:02 95 Nasal Cannula 2.00 05/26/17 12:00 98.1 72 16 178/100 (126) 96 05/26/17 09:00 96 Room Air 05/26/17 08:00 98.3 71 16 141/71 (94) 96 05/26/17 04:00 98.3 67 18 146/63 (90) 95 05/26/17 00:00 99.3 80 18 178/79 (112) 95 05/25/17 20:35 Nasal Cannula 2.00 05/25/17 20:34 94 Nasal Cannula 2.00 05/25/17 20:00 98.8 86 20 166/73 (104) 95 05/25/17 16:05 98.1 69 18 132/61 (84) 97 I/O 05/25/17 05/25/17 05/25/17 05/26/17 05/26/17 05/26/17 07:00 15:00 23:00 07:00 15:00 23:00 Intake Total 240 ml 840 ml 650 ml Output Total 0 ml 0 ml Balance 240 ml 840 ml 650 ml Intake Oral 240 ml 840 ml 650 ml Output Urine Total 0 ml 0 ml # Voids 3 # Bowel Movements 0 0 0 Result Diagram: 05/25/17 0837 05/26/17 0720 Objective Remarks AAOx3 Clear Lungs S1S2 RRR, no MRG Abdomen soft, tender to palpation of left upper quadrant and epigastric region. There are some calcifications which are tender to palpation on the lower abdomen. no edema A/P Problem List: (1) Hyperkalemia ICD Code: E87.5 - Hyperkalemia Status: Resolved (2) ESRD (end stage renal disease) on dialysis ICD Code: N18.6 - End stage renal disease; Z99.2 - Dependence on renal dialysis Status: Chronic (3) Anxiety ICD Code: F41.9 - Anxiety disorder, unspecified Status: Chronic (4) Depression ICD Code: F32.9 - Major depressive disorder, single episode, unspecified Status: Chronic (5) Diabetic retinopathy ICD Code: E11.319 - Type 2 diabetes mellitus with unspecified diabetic retinopathy without macular edema Status: Chronic (6) PAD (peripheral artery disease) ICD Code: I73.9 - Peripheral vascular disease, unspecified Status: Acute Permanent Comment: 10/2015 -Dr. Santillan - PAD - Rt calf/foot - angiogram done. Chronic total occlusion of AT with right AT Ath/STEREOTYPE CASTER on 09/23/15. Right great toe not healing. Discoloration 4th toe. Dr. Garvey podiatry referral. Ultrasound 3 months for post procedure. If ok then Q6 months us with office visit. Last Edited By: Jude Ron on Oct 20, 2015 15:58 (7) Tobacco abuse ICD Code: Z72.0 - Tobacco use Status: Chronic (8) Hypertension ICD Code: I10 - Essential (primary) hypertension Status: Acute (9) Diabetes ICD Code: E11.9 - Type 2 diabetes mellitus without complications Status: Chronic (10) Abdominal pain, LUQ ICD Code: R10.12 - Left upper quadrant pain Assessment and Plan Depression Peripheral neuropathy Lortab as needed for pain Continue gabapentin 6 mg by mouth 3 times a day Continue sertraline 100 mg by mouth daily Continue trazodone 50 g by mouth daily at bedtime Hypertension Hyperlipidemia Peripheral Arterial disease Monitor hemodynamics Coreg 6.25 mill grams by mouth twice a day Continue Plavix 75 mg by mouth daily LUQ abdominal pain - Unclear etiology. Abdominal exam is benign. CT noncontrast negative for acute abnormality. Noted ?spleen lesion and discussed with Dr. Alexis who states there is no spleen enlargement or inflammation. There is a nodule that was not seen on prior scan. Says could be further evaluated with IV contrasted abd/pelvis done prior to dialysis day. Was not able to perform tonight because patient had already been started on HD but scan could likely be done as an outpatient. 05/22 Patient still with significant abdominal pain localized mostly on epigastric region and left upper quadrant. Will consult GI for further recommendations. 05/24 appreciate GI consultation recommendations. The case was discussed with Silvana Bragg. The patient stated that she had an infection for which she was treated with IV vancomycin. Silvana Bragg confirm this with the patient's adult live in caregiver office. The patient was on vancomycin 1 g 2 times a week with dialysis. I called the patient's adult live in caregiver, Dr Mason that indeed confirmed that she was being treated with IV vancomycin. He also stated that the patient has calciphylaxis for which she has been getting sodium thiosulfate after hemodialysis, however he also states that she the patient is very noncompliant and she often misses her dialysis treatments with insulin hyperkalemia and hyperphosphatemia. I will check phosphorus. 05/25 Patient still with significant abdominal pain. I will order a CT abdomen and pelvis w IV contrast. Case discussed with Dr Mejia who agrees that this exam could be done at any time. Possible EGD colonoscopy on saturday. Nausea Reglan 5 mg IV Renal diet. 05/22 Nausea much improved. Continue antiemetics as needed. FEN/RENAL: ESRD Acute severe Hyperkalemia. Patient received kayexalate 15 g by mouth, calcium gluconate 1 g IV, albuterol, insulin 10 units IV in the ED. To receive emergent HD tonight. RUE fistula 05/22 Hyperkalemia resolved after emergent hemodialysis. Mild leukocytosis Mild likely stress related. Continue to monitor cbc. Diabetes mellitus Low-dose insulin sliding scale ac/hs. Blood sugar elevated - Will change to medium SSI scale. 05/24 patient has uncontrolled blood sugars in the 200s. I will start the patient on insulin Levemir 10 units subcutaneous twice a day and continue SSI NovoLog scale. 05/25 Blood sugar still very elevated in the 200's. Will increase Levemir dose to 15 units SQ BID, start prandial insulin with 3 units TID before meals. Continue sliding scale. Bacteremia Patient was being treated for enterococcus bacteremia as per report with vancomycin 1 g 3 times a week. I will resume IV vancomycin. This was discussed with the patient outpatient's adult live in caregiver, Dr. Mason. Calciphylaxis Patient has been treated with sodium thiosulfate after hemodialysis. Abdominal pain could be secondary to this. 05/25 Discussed with nephrology who will prescribe Sodium thiosulfate with HD. PROPH: She has a pork allergy, so will avoid subcut heparin. SCD LLE for DVT prophylaxis. ACCESS: PIV Discharge Planning Patient has been cleared by nephrology. However still complaining of abdominal pain. Problem Qualifiers (1) Diabetes: Vivek Gallo MD May 26, 2017 15:29
[2017-05-26] MEDS ORDERED: PEG (High)/E-LYTE SOLN 4000 ML BTL PO ONE (16:15)
--- NOTE | 2017-05-26 16:24 | HHI.GIFU ---
Subjective Remarks Resting in bed. No n/v. Tolerating diet. Continues to have LUQ pain, worse with movement. (Silvana Bragg) Objective Vitals I&O Vital Signs Date Time Temp Pulse Resp B/P (MAP) Pulse Ox O2 Delivery O2 Flow Rate FiO2 05/26/17 12:02 95 Nasal Cannula 2.00 05/26/17 12:00 98.1 72 16 178/100 (126) 96 05/26/17 09:00 96 Room Air 05/26/17 08:00 98.3 71 16 141/71 (94) 96 05/26/17 04:00 98.3 67 18 146/63 (90) 95 05/26/17 00:00 99.3 80 18 178/79 (112) 95 05/25/17 20:35 Nasal Cannula 2.00 05/25/17 20:34 94 Nasal Cannula 2.00 05/25/17 20:00 98.8 86 20 166/73 (104) 95 I/O 05/25/17 05/25/17 05/25/17 05/26/17 05/26/17 05/26/17 07:00 15:00 23:00 07:00 15:00 23:00 Intake Total 240 ml 840 ml 650 ml Output Total 0 ml 0 ml Balance 240 ml 840 ml 650 ml Intake Oral 240 ml 840 ml 650 ml Output Urine Total 0 ml 0 ml # Voids 3 # Bowel Movements 0 0 0 Laboratory Laboratory Tests Test 05/26/17 07:20 Blood Urea Nitrogen 59 Creatinine 8.68 Random Glucose 332 Calcium Level 9.3 Phosphorus Level 5.0 Sodium Level 125 Potassium Level 6.3 Chloride Level 89 Carbon Dioxide Level 23.0 Anion Gap 13 Estimat Glomerular Filtration Rate 5 Imaging Last Impressions Abdomen/Pelvis CT 05/22/17 0000 Signed Impressions: Service Date/Time: Monday, May 22, 2017 18:34 - CONCLUSION: 1. Status post cholecystectomy. 2. Atrophy of both kidneys. No hydronephrosis. 3. No acute pathology. Dennis Alexis MD Physical Exam HEENT: Normocephalic; atraumatic; no jaundice. CHEST: CTA CARDIAC: RRR. ABDOMEN: Soft, obese, left upper quadrant tenderness, no hepatosplenomegaly; bowel sounds are present in all four quadrants. EXTREMITIES: Right BKA SKIN: Normal; no rash; no jaundice. BEAMER HAND: No focal deficits; alert and oriented times three. (BraggSilvana Johnson [facility]) Assessment and Plan Plan ASSESSMENT: - Abdominal pain. CT Scan abdomen and pelvis (05/22/17)---> status post cholecystectomy, atrophy of both kidneys. No hydronephrosis, no acute pathology. Her pain is aggravated by deep breath, getting out of bed and movement. No relation to food intake. She did have n/v a few days ago, but also missed her HD and had electrolyte abnormalities. Has GERD, states well controlled. Unsure if she has had EGD. Never had colonoscopy. CT scan abdomen and pelvis with iv contrast (05/26/17)---> Findings characteristic of acute splenic infarction. There is heavy calcification of the splenic artery though the celiac and superior mesenteric arteries are patent. Hypodense liver compatible with fatty infiltration or hepatocellular disease. Diverticulosis without evidence of diverticulitis, probable left adrenal adenoma. Her left sided pain,likely is related to this, but has never had egd/colonoscopy and would like to have continue with plans for endoscopic evaluation. Will plan for egd/colonoscopy in am. - Acute splenic infarction on CT scan. Per attending. - N/V, resolved. - GERD. PPI - HCV. Tx naive. Records in computer were negative, but back in 2003, genotype and viral load pending - Anemia, mild. 10.0/30.4 - ESRD with electrolyte abnormalities. HD Mondays/Wednesdays/Fridays. - Recent bacteremia. Pt called Dr. Mason's office while I was in the room and according to the nurse Claudia, she has enterococcus in her blood and is supposed to be on Vancomycin 1 gram IV three times a week until May 30. - Anxiety, Depression, DM, HTN, PAD, per attending. PLAN: - Plan for egd/colonoscopy in am - Obtain consents - Clear liquids - Golytely prep - NPO after MN - PPI - Await HCV Genotype/Viral load - Suspect her left sided abdominal pain is related to acute splenic infarct, but patient would like to proceed with egd/colon. given the fact that she never has had one, anemia, n/v, and gerd, we will plan for am. - Pt seen and examined by Dr. Ron and myself and this note is written on his behalf (Silvana Bragg) Physician Comments Seen and examined with CARLINE, splenic infarst on ct. EGD/Colonoscopy planned. (Zhang Ron MD) Silvana Bragg May 26, 2017 16:24 Zhang Ron MD May 27, 2017 16:04
[2017-05-26] MEDS: traZODone HCL 50 MG TAB PO SCH (21:28)
[2017-05-27] VITALS: BP 130/90; PULSE 70; RESP 18; TEMP 97.9; O2SAT 94
[2017-05-27] MEDS: ACETAMINOPHEN/HYDROcodone 325 MG/5 MG TAB PO PRN ×3 (01:12→18:30)
--- NOTE | 2017-05-27 01:26 | PD.CAR.PN ---
CVT Progress Note Subjective/Hospital Course: Referral received Full consult TF Delroy J Objective: Vital Signs Date Time Temp Pulse Resp B/P (MAP) Pulse Ox O2 Delivery O2 Flow Rate FiO2 05/27/17 00:00 97.9 70 18 130/90 (103) 94 05/26/17 21:00 Nasal Cannula 2.00 05/26/17 20:12 95 Nasal Cannula 2.00 05/26/17 20:00 98.3 76 17 189/86 (120) 94 05/26/17 16:00 98.6 73 16 192/86 (121) 95 05/26/17 12:02 95 Nasal Cannula 2.00 05/26/17 12:00 98.1 72 16 178/100 (126) 96 05/26/17 09:00 96 Room Air 05/26/17 08:00 98.3 71 16 141/71 (94) 96 05/26/17 04:00 98.3 67 18 146/63 (90) 95 Result Diagram: 05/25/17 0837 05/26/17 0720 Jeny Mckeon MD May 27, 2017 01:26
[2017-05-27] MEDS: RESP: ALBUTEROL 2.5 MG/3 ML NEB (SCH) INH (03:35)
[2017-05-27 04:00] VITALS: BP 165/79; PULSE 62; RESP 18; TEMP 97.6; O2SAT 97
[2017-05-27] MEDS: CHLORHEXIDINE GLUCONATE 2 % 1 PACK (2 CLOTHS) TOP SCH (04:00)
[2017-05-27] MEDS: METOCLOPRAMIDE HCL 10 MG/2 ML VIAL IV PUSH SCH ×3 (04:00→21:36)
[2017-05-27 06:08] LABS: HEMATOCRIT 31.1 % (35.0-46.0); MEAN CELL VOLUME 94.2 FL (80.0-100.0); MEAN CORPUSCULAR HEMOGLOBIN 31.5 PG (27.0-34.0); MEAN CORPUSCULAR HGB CONC 33.5 % (32.0-36.0); PLATELET COUNT 254 TH/MM3 (150-450); RED CELL DISTRIBUTION WIDTH 15.8 % (11.6-17.2); REVIEW FLAG FINAL; WHITE BLOOD COUNT 10.7 TH/MM3 (4.0-11.0)
[2017-05-27 06:41] LABS: BICARBONATE 23.4 MEQ/L (21.0-32.0); POTASSIUM 6.5 MEQ/L (3.5-5.1)
[2017-05-27 08:00] VITALS: BP 179/66; PULSE 68; RESP 20; TEMP 97.9; O2SAT 99
[2017-05-27] MEDS: INSULIN ASPART SUPPLEMENTAL SCALE SQ SCH ×4 (08:00→21:00)
[2017-05-27] MEDS: DOCUSATE SODIUM 50 MG/SENNA 8.6 MG TAB PO SCH ×2 (09:00→21:00)
[2017-05-27] MEDS: CALCIUM ACETATE 667 MG CAP PO SCH ×3 (09:00→18:49)
[2017-05-27] MEDS: SEVELAMER CARBONATE 800 MG TAB PO SCH ×3 (09:00→18:49)
[2017-05-27] MEDS: VITAMIN B CMPLX/VITC/FOLIC AC CAP PO SCH (09:00)
[2017-05-27] MEDS: DOCUSATE SODIUM 100 MG CAP PO SCH ×2 (09:00→21:00)
[2017-05-27] MEDS: CHOLECALCIFEROL (VIT D3) 5000 UNIT CAP PO SCH (09:00)
[2017-05-27] MEDS: SERTRALINE HCL 100 MG TAB PO SCH (09:28)
[2017-05-27] MEDS: SODIUM CHLORIDE 0.9% FLUSH 10 ML FLUSH IV FLUSH SCH ×2 (09:28→21:35)
[2017-05-27] MEDS: PANTOPRAZOLE SOD 40 MG DELAYED RELEASE TAB PO SCH (09:29)
[2017-05-27] MEDS: CARVEDILOL 6.25 MG TAB PO SCH ×2 (09:29→21:36)
[2017-05-27] MEDS: INSULIN DETEMIR 100 UNITS/ML VIAL SQ SCH (09:31)
--- NOTE | 2017-05-27 09:38 | HHI.PR ---
Subjective Remarks Follow-up abdominal pain, electrolyte abnormalities, diabetes. The patient is still reporting left upper quadrant abdominal pain. She reports nausea, but no vomiting. No chest pain or dyspnea. Objective Vitals Vital Signs Date Time Temp Pulse Resp B/P (MAP) Pulse Ox O2 Delivery O2 Flow Rate FiO2 05/27/17 04:00 97.6 62 18 165/79 (107) 97 05/27/17 00:00 97.9 70 18 130/90 (103) 94 05/26/17 21:00 Nasal Cannula 2.00 05/26/17 20:12 95 Nasal Cannula 2.00 05/26/17 20:00 78 05/26/17 20:00 98.3 76 17 189/86 (120) 94 05/26/17 16:00 98.6 73 16 192/86 (121) 95 05/26/17 12:02 95 Nasal Cannula 2.00 05/26/17 12:00 98.1 72 16 178/100 (126) 96 I/O 05/26/17 05/26/17 05/26/17 05/27/17 05/27/17 05/27/17 07:00 15:00 23:00 07:00 15:00 23:00 Intake Total 650 ml 720 ml 2400 ml Output Total 0 ml Balance 650 ml 720 ml 2400 ml Intake Oral 650 ml 720 ml 2400 ml Output Urine Total 0 ml # Voids 0 # Bowel Movements 0 8 Result Diagram: 05/27/17 0520 05/27/17 0520 Imaging Last Impressions Abdomen/Pelvis CT 05/25/17 0000 Signed Impressions: Service Date/Time: Friday, May 26, 2017 13:17 - CONCLUSION: 1. Findings characteristic of acute splenic infarction. There is heavy calcification of the splenic artery though the celiac and superior mesenteric arteries are patent. 2. Hypodense liver compatible with fatty infiltration or hepatocellular disease. 3. Diverticulosis without evidence of diverticulitis. 4. Probable left adrenal adenoma Rhys Barker MD Objective Remarks General: Obese female in no acute distress. Heart: Regular rate and rhythm. No murmur. Lungs: Clear to auscultation bilaterally. No wheezes, rales, or rhonchi. Breathing is nonlabored. Abdomen: Soft, nontender, nondistended. Extremities: Trace left lower extremity edema. Right below-knee amputation. Psych: Alert and oriented. Procedures None Urinary Catheter: No Vascular Central Line Catheter: No A/P Problem List: (1) Hyperkalemia ICD Code: E87.5 - Hyperkalemia Status: Resolved (2) ESRD (end stage renal disease) on dialysis ICD Code: N18.6 - End stage renal disease; Z99.2 - Dependence on renal dialysis Status: Chronic (3) Anxiety ICD Code: F41.9 - Anxiety disorder, unspecified Status: Chronic (4) Depression ICD Code: F32.9 - Major depressive disorder, single episode, unspecified Status: Chronic (5) Diabetic retinopathy ICD Code: E11.319 - Type 2 diabetes mellitus with unspecified diabetic retinopathy without macular edema Status: Chronic (6) PAD (peripheral artery disease) ICD Code: I73.9 - Peripheral vascular disease, unspecified Status: Acute Permanent Comment: 10/2015 -Dr. Santillan - PAD - Rt calf/foot - angiogram done. Chronic total occlusion of AT with right AT Ath/[employer] on 09/23/15. Right great toe not healing. Discoloration 4th toe. Dr. Garvey podiatry referral. Ultrasound 3 months for post procedure. If ok then Q6 months us with office visit. Last Edited By: Jude Ron on Oct 20, 2015 15:58 (7) Tobacco abuse ICD Code: Z72.0 - Tobacco use Status: Chronic (8) Hypertension ICD Code: I10 - Essential (primary) hypertension Status: Acute (9) Diabetes ICD Code: E11.9 - Type 2 diabetes mellitus without complications Status: Chronic (10) Abdominal pain, LUQ ICD Code: R10.12 - Left upper quadrant pain (11) Hyponatremia ICD Code: E87.1 - Hypo-osmolality and hyponatremia Assessment and Plan 1. Left upper quadrant abdominal pain: Uncertain etiology. CT abdomen/pelvis is unremarkable. Appreciate GI recommendations. EGD/colonoscopy scheduled for today. 2. Hyponatremia: Sodium trending down. Call placed to nephrology for further recommendations. Patient scheduled for dialysis today. Not currently on IV fluids. Denies vomiting, but is having diarrhea. 3. Hyperkalemia: Has received Kayexalate, calcium gluconate, insulin. Continue hemodialysis per nephrology. 4. Diabetes mellitus: Monitor Accu-Cheks and cover with sliding scale insulin. 5. Bacteremia: Patient being treated for enterococcus bacteremia with vancomycin 1 g 3 times a week. Continue antibiotics. 6. End-stage renal disease: Hemodialysis per nephrology. 7. Calciphylaxis: Sodium thiosulfate with hemodialysis. Possible etiology of abdominal pain. 8. DVT prophylaxis: SCD to left lower extremity. Heparin was avoided secondary to allergy. Problem Qualifiers (1) Diabetes: Darryl Wahl MD May 27, 2017 09:38
[2017-05-27 12:00] VITALS: BP 178/81; PULSE 78; RESP 20; TEMP 98.5; O2SAT 98
[2017-05-27] MEDS: GELATIN 12 MM/7 MM FOAM TOP PRN (16:46)
--- NOTE | 2017-05-27 17:07 | HHI.NPPN ---
Subjective Additional Remarks Patient seen alert, seen during HD, still has left upper abd. pain, and mild SOB. Review of Systems Gastrointestinal Gastrointestinal: Abdominal Pain Objective Data Data 05/27/17 05/28/17 19:00 07:00 Output Total 5000 ml Balance -5000 ml Hemodialysis 5000 ml Vital Signs Date Time Temp Pulse Resp B/P (MAP) Pulse Ox O2 Delivery O2 Flow Rate FiO2 05/27/17 12:00 98.5 78 20 178/81 (113) 98 05/27/17 08:00 97.9 68 20 179/66 (103) 99 05/27/17 04:00 97.6 62 18 165/79 (107) 97 05/27/17 00:00 97.9 70 18 130/90 (103) 94 05/26/17 21:00 Nasal Cannula 2.00 05/26/17 20:12 95 Nasal Cannula 2.00 05/26/17 20:00 78 05/26/17 20:00 98.3 76 17 189/86 (120) 94 -: 05/27/17 0520 05/27/17 0520 Physical Exam General Appearance: No Acute Distress, Comfortable Neck Neck Exam: Neck Supple Pulmonary Resp Exam: Clear Bilaterally, Breath Sounds Equal Cardiology CV Exam: Regular, Normal Sinus Rhythm Gastrointestinal/Abdomen GI Exam: Soft, Bowel Sounds Present, Distended Extremeties Extremities Exam: Trace Edema Neurologic Neuro Exam: Alert, Awake, Oriented Psychiatric Psych Exam: Appropriate Responses Assessment/Plan Problem List: (1) ESRD (end stage renal disease) on dialysis ICD Codes: N18.6 - End stage renal disease; Z99.2 - Dependence on renal dialysis Status: Chronic Plan: HD now, removing 5 liters. K was high and Na. was low, now NPO, should be on low K diet. left side Abd pain is possibly muscular, as aggravated by movement Flexeril started Planned further endoscopy evaluation this week, possibly in AM. continue HD M,W,F Left ischemic foot Apparently has been on sodium thiosulfate as outpatient for calciphylaxis, has been here also. (2) Hyperkalemia ICD Codes: E87.5 - Hyperkalemia Status: Resolved Plan: elevated today - will given kayexelate. HD tomorrow. (3) Hypertension ICD Codes: I10 - Essential (primary) hypertension Status: Acute Plan: stable (4) Diabetes ICD Codes: E11.9 - Type 2 diabetes mellitus without complications Status: Chronic Problem Qualifiers (1) Diabetes: Brian Gaston MD May 27, 2017 17:07
[2017-05-27] MEDS: GABAPENTIN 300 MG CAP PO SCH (18:48)
--- NOTE | 2017-05-27 18:56 | MB ---
cc: JENY DEWEY MD DATE OF CONSULTATION 05/27/[address] Dewey / surgery. REASON FOR CONSULTATION Left upper quadrant abdominal pain. HISTORY OF THE PRESENT ILLNESS This 46-year-old female with diabetes mellitus, severe peripheral vascular disease and hypertension was admitted because she missed several sessions of her dialysis. The patient states that she has left upper quadrant pain and is being worked up. In the process of workup she was found to have arterial splenic infarct and question arises about clinical significance of this finding. PAST MEDICAL HISTORY The past medical history is complex. 1. End-stage renal disease on dialysis. 2. Diabetes. 3. Peripheral vascular disease. 4. Abdominal pain with previous amputation of the right leg. 5. Left leg angioplasty and stenting recently by Dr. Cyr. PAST SURGICAL HISTORY Surgical history is: 1. Right BKA. 2. placement. 3. Left leg angioplasty. 4. Cholecystectomy 5. Right arm AV fistula. 6. Tonsillectomy. 7. Oophorectomy. The patient is noncompliant with her care. She is on a number of medications that can be found in the record. PHYSICAL EXAMINATION GENERAL: Physical examination reveals a 46-year-old female in no acute distress. HEENT: Normocephalic. No trauma to the head. Pupils are equal, poorly reactive. Extraocular muscles cannot be tested. The patient is legally blind although she can see some. NECK: Bilateral carotid pulses and no carotid bruits. CHEST: Bilateral breath sounds decreased over both lung vázquez. HEART: Regular rhythm. ABDOMEN: Soft. No rebound or guarding. No masses. EXTREMITIES: The patient has a right BKA which is healed and then the left side, the patient had recent angioplasty and foot is warm. I reviewed laboratory and diagnostic procedures. The patient is not in pain. On the CT scan there is clear evidence of a splenic infarction which usually presents in a wedge-shaped fashion just like in the lungs. The patient does have diffuse vascular disease with fairly severe calcifications everywhere and it is very conceivable that a piece of arterial plaque flushed into the spleen causing this embolism and hence the distal infarction of the spleen tissue. The majority of the patients with these do not require any further care. We see splenic infarcts very commonly in patients with spherocytosis and those with sickle cell anemia and then no surgery is necessary. The only time surgery becomes an issue if the patient starts developing left-sided portal hypertension which is a rare occurrence. At this point no surgical therapy is necessary. Thank you much for referral. Jeny Dewey SJ/KK /4:30 PM /6:20 PM
[2017-05-27 20:00] VITALS: BP 164/73; PULSE 65; PULSE 67; RESP 16; TEMP 97.6; O2SAT 92
--- NOTE | 2017-05-27 21:19 | HHI.GIFU ---
Subjective Remarks Comfortable in bed denies any pain no new complaints Objective Vitals I&O Vital Signs Date Time Temp Pulse Resp B/P (MAP) Pulse Ox O2 Delivery O2 Flow Rate FiO2 05/27/17 12:00 98.5 78 20 178/81 (113) 98 05/27/17 08:00 97.9 68 20 179/66 (103) 99 05/27/17 04:00 97.6 62 18 165/79 (107) 97 05/27/17 00:00 97.9 70 18 130/90 (103) 94 I/O 05/26/17 05/26/17 05/26/17 05/27/17 05/27/17 05/27/17 07:00 15:00 23:00 07:00 15:00 23:00 Intake Total 650 ml 720 ml 2400 ml Output Total 0 ml 5000 ml Balance 650 ml 720 ml 2400 ml -5000 ml Intake Oral 650 ml 720 ml 2400 ml Output Urine Total 0 ml Hemodialysis 5000 ml # Voids 0 # Bowel Movements 0 8 Laboratory Laboratory Tests Test 05/27/17 05:20 White Blood Count 10.7 Red Blood Count 3.30 Hemoglobin 10.4 Hematocrit 31.1 Mean Corpuscular Volume 94.2 Mean Corpuscular Hemoglobin 31.5 Mean Corpuscular Hemoglobin Concent 33.5 Red Cell Distribution Width 15.8 Platelet Count 254 Mean Platelet Volume 7.9 Blood Urea Nitrogen 69 Creatinine 9.38 Random Glucose 170 Calcium Level 8.9 Sodium Level 124 Potassium Level 6.5 Chloride Level 87 Carbon Dioxide Level 23.4 Anion Gap 14 Estimat Glomerular Filtration Rate 5 Physical Exam HEENT: Normocephalic; atraumatic; no jaundice. CHEST: CTA CARDIAC: RRR. ABDOMEN: Soft, obese, nontender, no hepatosplenomegaly; bowel sounds are present in all four quadrants. EXTREMITIES: Right BKA SKIN: Normal; no rash; no jaundice. 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 Assessment and Plan Plan ASSESSMENT: - Abdominal pain. CT Scan abdomen and pelvis (05/22/17)---> status post cholecystectomy, atrophy of both kidneys. No hydronephrosis, no acute pathology. Her pain is aggravated by deep breath, getting out of bed and movement. No relation to food intake. She did have n/v a few days ago, but also missed her HD and had electrolyte abnormalities. Has GERD, states well controlled. Unsure if she has had EGD. Never had colonoscopy. CT scan abdomen and pelvis with iv contrast (05/26/17)---> Findings characteristic of acute splenic infarction. There is heavy calcification of the splenic artery though the celiac and superior mesenteric arteries are patent. Hypodense liver compatible with fatty infiltration or hepatocellular disease. Diverticulosis without evidence of diverticulitis, probable left adrenal adenoma. Her left sided pain,likely is related to this, but has never had egd/colonoscopy and would like to have continue with plans for endoscopic evaluation. Will plan for egd/colonoscopy in am. - Acute splenic infarction on CT scan. Per attending. - N/V, resolved. - GERD. PPI - HCV. Tx naive. Records in computer were negative, but back in 2003, genotype and viral load pending - Anemia, mild. 10.0/30.4 - ESRD with electrolyte abnormalities. HD Mondays/Wednesdays/Fridays. - Recent bacteremia. Pt called Dr. Mason's office while I was in the room and according to the nurse Caludia, she has enterococcus in her blood and is supposed to be on Vancomycin 1 gram IV three times a week until May 30. - Anxiety, Depression, DM, HTN, PAD, per attending. Hyponatremia, hyperkalemia PLAN: - Plan for egd/colonoscopy in am was canceled today due to electrolyte abnormalities with low sodium and high potassium - Clear liquids - NPO after MN - PPI - Await HCV Genotype/Viral load - Suspect her left sided abdominal pain is related to acute splenic infarct, but patient would like to proceed with egd/colon. given the fact that she never has had one, anemia, n/v, and gerd, we will plan for am. Geovanny Wesley MD May 27, 2017 21:19
[2017-05-27] MEDS: traZODone HCL 50 MG TAB PO SCH (21:36)
[2017-05-28] VITALS (7 sets, daily range): BP systolic 110–159; BP diastolic 58–72; PULSE 65–102; RESP 18–20; TEMP 97.6–101.3; O2SAT 93–100
[2017-05-28] MEDS: ACETAMINOPHEN/HYDROcodone 325 MG/5 MG TAB PO PRN ×2 (01:41→16:51)
[2017-05-28] MEDS: METOCLOPRAMIDE HCL 10 MG/2 ML VIAL IV PUSH SCH ×3 (04:17→21:12)
[2017-05-28] MEDS: CHLORHEXIDINE GLUCONATE 2 % 1 PACK (2 CLOTHS) TOP SCH (04:18)
[2017-05-28] MEDS: CARVEDILOL 6.25 MG TAB PO SCH ×2 (08:58→21:12)
[2017-05-28] MEDS: DOCUSATE SODIUM 50 MG/SENNA 8.6 MG TAB PO SCH ×2 (09:00→21:00)
[2017-05-28] MEDS: VITAMIN B CMPLX/VITC/FOLIC AC CAP PO SCH (09:00)
[2017-05-28] MEDS: SERTRALINE HCL 100 MG TAB PO SCH (09:00)
[2017-05-28] MEDS: SODIUM CHLORIDE 0.9% FLUSH 10 ML FLUSH IV FLUSH SCH ×2 (09:00→21:00)
[2017-05-28] MEDS: DOCUSATE SODIUM 100 MG CAP PO SCH ×2 (09:00→21:00)
[2017-05-28] MEDS: CHOLECALCIFEROL (VIT D3) 5000 UNIT CAP PO SCH (09:00)
[2017-05-28] MEDS: PANTOPRAZOLE SOD 40 MG DELAYED RELEASE TAB PO SCH (09:00)
[2017-05-28 09:56] LABS: BICARBONATE 27.7 MEQ/L (21.0-32.0); POTASSIUM 4.3 MEQ/L (3.5-5.1)
[2017-05-28] MEDS: CALCIUM ACETATE 667 MG CAP PO SCH ×3 (13:00→17:26)
[2017-05-28] MEDS: SEVELAMER CARBONATE 800 MG TAB PO SCH ×3 (13:00→17:26)
[2017-05-28] MEDS: GABAPENTIN 300 MG CAP PO SCH (13:00)
[2017-05-28] MEDS ORDERED: PROPOFOL 500 MG/50 ML INJ 50 ML ONE (14:41)
--- NOTE | 2017-05-28 15:27 | PD.PROCEDR ---
GI Procedure REFERRING PHYSICIAN Dr. Torres PROCEDURE PERFORMED EGD with biopsy followed by an incomplete colonoscopy due to poor prep INDICATION FOR PROCEDURE Anemia, abdominal pain, PROCEDURE: The procedure, risks and benefits were discussed with Ms. Laguerre and informed consent was obtained. Anesthesia sedated her with Diprivan. She was placed in the left lateral decubitus position. EGD: The Pentax videoscope was introduced through the oropharynx and advanced to the second portion of the duodenum under direct visualization. Retroflexion was performed in the stomach. FINDINGS: The esophagus this appeared to be unremarkable except for some distal esophageal erythema probably reflux esophagitis this was biopsied The stomach there was patchy erythema throughout the gastric mucosa no ulcerations or erosions no blood or bleeding antral biopsies were taken further evaluation The duodenum this was normal Colonoscopy: The Pentax videoscope was introduced through the rectum and advanced to the cecum where the ileocecal valve and appendiceal orifice were identified. Retroflexion was performed in the rectum. Colonic prep was poor FINDINGS: As the scope was slowly withdrawn colonic mucosa was carefully inspected this was noted to be unremarkable and within normal limits but a good percentage was not seen due to the poor prep ESTIMATED BLOOD LOSS: None SPECIMENS REMOVED: Esophageal and gastric biopsies COMPLICATIONS: None IMPRESSION: Reflux esophagitis Pangastritis Incomplete colonoscopy due to poor prep PLAN: Await biopsies PPI repeat colonoscopy on an outpatient basis Continue with current supportive care Geovanny Wesley MD May 28, 2017 15:27
--- NOTE | 2017-05-28 16:22 | HHI.PR ---
Subjective Remarks Follow up abdominal pain, fever. Patient just returned from EGD. Unable to do colonoscopy due to poor prep. Patient still having abdominal pain in LUQ, unchanged. Objective Vitals Vital Signs Date Time Temp Pulse Resp B/P (MAP) Pulse Ox O2 Delivery O2 Flow Rate FiO2 05/28/17 15:59 69 118/66 (83) 94 05/28/17 15:19 98.2 72 18 98/49 (65) 95 05/28/17 09:35 100.8 05/28/17 08:00 101.3 102 20 110/64 (79) 93 05/28/17 04:00 97.6 65 18 157/66 (96) 96 05/28/17 00:00 97.6 65 18 159/72 (101) 97 05/27/17 20:00 67 05/27/17 20:00 Nasal Cannula 2.00 05/27/17 20:00 97.6 65 16 164/73 (103) 92 I/O 05/27/17 05/27/17 05/27/17 05/28/17 05/28/17 05/28/17 07:00 15:00 23:00 07:00 15:00 23:00 Intake Total 2400 ml 960 ml 500 ml Output Total 5000 ml 0 ml Balance 2400 ml -5000 ml 960 ml 500 ml Intake Oral 2400 ml 960 ml Other 500 ml Output Urine Total 0 ml Hemodialysis 5000 ml # Voids 0 # Bowel Movements 8 0 1 Result Diagram: 05/27/17 0520 05/28/17 0916 Imaging Last Impressions Abdomen/Pelvis CT 05/25/17 0000 Signed Impressions: Service Date/Time: Friday, May 26, 2017 13:17 - CONCLUSION: 1. Findings characteristic of acute splenic infarction. There is heavy calcification of the splenic artery though the celiac and superior mesenteric arteries are patent. 2. Hypodense liver compatible with fatty infiltration or hepatocellular disease. 3. Diverticulosis without evidence of diverticulitis. 4. Probable left adrenal adenoma Rhys Barker MD Objective Remarks General: Obese female in no acute distress. Sitting in wheelchair. Heart: Regular rate and rhythm. No murmur. Lungs: Clear to auscultation bilaterally. No wheezes, rales, or rhonchi. Breathing is nonlabored. Abdomen: Soft, nontender, nondistended. Extremities: Trace left lower extremity edema. Right below-knee amputation. Psych: Alert and oriented. Procedures 05/28/17 EGD, colonoscopy Urinary Catheter: No Vascular Central Line Catheter: No A/P Problem List: (1) Hyperkalemia ICD Code: E87.5 - Hyperkalemia Status: Resolved (2) ESRD (end stage renal disease) on dialysis ICD Code: N18.6 - End stage renal disease; Z99.2 - Dependence on renal dialysis Status: Chronic (3) Anxiety ICD Code: F41.9 - Anxiety disorder, unspecified Status: Chronic (4) Depression ICD Code: F32.9 - Major depressive disorder, single episode, unspecified Status: Chronic (5) Diabetic retinopathy ICD Code: E11.319 - Type 2 diabetes mellitus with unspecified diabetic retinopathy without macular edema Status: Chronic (6) PAD (peripheral artery disease) ICD Code: I73.9 - Peripheral vascular disease, unspecified Status: Acute Permanent Comment: 10/2015 -Dr. Santillan - PAD - Rt calf/foot - angiogram done. Chronic total occlusion of AT with right AT Ath/[employer] on 09/23/15. Right great toe not healing. Discoloration 4th toe. Dr. Garvey podiatry referral. Ultrasound 3 months for post procedure. If ok then Q6 months us with office visit. Last Edited By: Jude Ron on Oct 20, 2015 15:58 (7) Tobacco abuse ICD Code: Z72.0 - Tobacco use Status: Chronic (8) Hypertension ICD Code: I10 - Essential (primary) hypertension Status: Acute (9) Diabetes ICD Code: E11.9 - Type 2 diabetes mellitus without complications Status: Chronic (10) Abdominal pain, LUQ ICD Code: R10.12 - Left upper quadrant pain (11) Hyponatremia ICD Code: E87.1 - Hypo-osmolality and hyponatremia Assessment and Plan 1. Left upper quadrant abdominal pain: Uncertain etiology. CT abdomen/pelvis is unremarkable. Appreciate GI recommendations. EGD/colonoscopy done today. 2. Hyponatremia: Sodium improved today. Appreciate nephrology recommendations. Not currently on IV fluids. Denies vomiting, but is having diarrhea. 3. Hyperkalemia: Potassium now within normal limits. Continue hemodialysis 4. Diabetes mellitus: Monitor Accu-Cheks and cover with sliding scale insulin. 5. Bacteremia: Patient being treated for enterococcus bacteremia with vancomycin 1 g 3 times a week. Continue antibiotics. She has had fevers today. 6. End-stage renal disease: Hemodialysis per nephrology. 7. Calciphylaxis: Sodium thiosulfate with hemodialysis. Possible etiology of abdominal pain. 8. DVT prophylaxis: SCD to left lower extremity. Heparin was avoided secondary to allergy. Problem Qualifiers (1) Diabetes: Darryl Wahl MD May 28, 2017 16:22
[2017-05-28] MEDS: INSULIN ASPART SUPPLEMENTAL SCALE SQ SCH (21:00)
[2017-05-28] MEDS: traZODone HCL 50 MG TAB PO SCH (21:13)
[2017-05-29] VITALS (10 sets, daily range): BP systolic 110–235; BP diastolic 54–105; PULSE 63–104; RESP 18–20; TEMP 97.5–102.9; O2SAT 91–96
[2017-05-29] MEDS: ACETAMINOPHEN/HYDROcodone 325 MG/5 MG TAB PO PRN ×4 (00:10→19:07)
[2017-05-29] MEDS: CHLORHEXIDINE GLUCONATE 2 % 1 PACK (2 CLOTHS) TOP SCH (04:00)
[2017-05-29] MEDS: METOCLOPRAMIDE HCL 10 MG/2 ML VIAL IV PUSH SCH ×3 (04:00→21:20)
[2017-05-29 06:50] LABS: AUTOMATED NEUTROPHIL # 11.1 TH/MM3 (1.8-7.7); BASOPHIL % 0.3 % (0.0-2.0); EOSINOPHIL # 0.1 TH/MM3 (0-0.4); EOSINOPHIL % 0.6 % (0.0-4.0); HEMATOCRIT 28.1 % (35.0-46.0); HEMO FLAGS DIFF FINAL; LYMPH % 6.5 % (9.0-44.0); LYMPHOCYTE # 0.9 TH/MM3 (1.0-4.8); MEAN CELL VOLUME 93.3 FL (80.0-100.0); MEAN CORPUSCULAR HEMOGLOBIN 30.7 PG (27.0-34.0); MEAN CORPUSCULAR HGB CONC 32.9 % (32.0-36.0); NEUT % 83.6 % (16.0-70.0); PLATELET COUNT 222 TH/MM3 (150-450); RED BLOOD COUNT 3.02 MIL/MM3 (4.00-5.30); RED CELL DISTRIBUTION WIDTH 15.7 % (11.6-17.2); WHITE BLOOD COUNT 13.2 TH/MM3 (4.0-11.0)
[2017-05-29 07:30] LABS: ALKALINE PHOSPHATASE 138 U/L (45-117); ALT (GPT) 22 U/L (10-53); ANION GAP 11 MEQ/L (5-15); AST (GOT) 14 U/L (15-37); BICARBONATE 27.1 MEQ/L (21.0-32.0); BLOOD UREA NITROGEN 55 MG/DL (7-18); CHLORIDE 89 MEQ/L (98-107); GLOMERULAR FILTRATION RATE 5 ML/MIN (>89); POTASSIUM 4.6 MEQ/L (3.5-5.1); SODIUM (NA) 127 MEQ/L (136-145); TOTAL BILIRUBIN ADULT 0.5 MG/DL (0.2-1.0)
[2017-05-29] MEDS: INSULIN ASPART SUPPLEMENTAL SCALE SQ SCH ×4 (08:00→21:19)
[2017-05-29] MEDS: DOCUSATE SODIUM 100 MG CAP PO SCH ×2 (09:00→21:00)
[2017-05-29] MEDS: DOCUSATE SODIUM 50 MG/SENNA 8.6 MG TAB PO SCH ×2 (09:00→21:00)
[2017-05-29] MEDS: SODIUM CHLORIDE 0.9% FLUSH 10 ML FLUSH IV FLUSH SCH ×2 (09:00→21:20)
[2017-05-29] MEDS: CHOLECALCIFEROL (VIT D3) 5000 UNIT CAP PO SCH (09:14)
[2017-05-29] MEDS: VITAMIN B CMPLX/VITC/FOLIC AC CAP PO SCH (09:14)
[2017-05-29] MEDS: CALCIUM ACETATE 667 MG CAP PO SCH ×3 (09:14→17:50)
[2017-05-29] MEDS: SERTRALINE HCL 100 MG TAB PO SCH (09:15)
[2017-05-29] MEDS: SEVELAMER CARBONATE 800 MG TAB PO SCH ×3 (09:15→17:50)
[2017-05-29] MEDS: PANTOPRAZOLE SOD 40 MG DELAYED RELEASE TAB PO SCH (09:15)
[2017-05-29 09:50] LABS: HCV RNA PCR IU/ML LESS THAN 15 IU/mL (0-14); HCV RNA PCR LOGIU/ML LESS THAN 1.18 (0-1.18)
--- NOTE | 2017-05-29 10:15 | HHI.GIFU ---
Subjective Remarks Resting in bed. Reports that she has had fevers throughout the night. No n/v. Continues to have the left sided abdominal pain. (Silvana Bragg) Objective Vitals I&O Vital Signs Date Time Temp Pulse Resp B/P (MAP) Pulse Ox O2 Delivery O2 Flow Rate FiO2 05/29/17 08:00 97.5 64 18 127/67 (87) 95 05/29/17 04:00 98.4 78 18 121/58 (79) 91 05/29/17 01:15 100.0 90 18 141/65 (90) 95 05/29/17 00:19 102.9 104 20 235/105 (148) 93 05/28/17 22:00 Nasal Cannula 2.00 05/28/17 20:29 69 05/28/17 20:00 Nasal Cannula 2.00 05/28/17 20:00 98.5 70 18 145/68 (93) 100 05/28/17 16:00 99.0 66 20 128/58 (81) 95 05/28/17 15:59 69 118/66 (83) 94 05/28/17 15:19 98.2 72 18 98/49 (65) 95 I/O 05/28/17 05/28/17 05/28/17 05/29/17 05/29/17 05/29/17 06:59 14:59 22:59 06:59 14:59 22:59 Intake Total 960 ml 740 ml 480 ml Output Total 0 ml 0 ml 0 ml Balance 960 ml 740 ml 480 ml Intake Oral 960 ml 240 ml 480 ml Other 500 ml Output Urine Total 0 ml 0 ml 0 ml # Bowel Movements 0 2 1 Laboratory Laboratory Tests Test 05/29/17 06:18 White Blood Count 13.2 Red Blood Count 3.02 Hemoglobin 9.3 Hematocrit 28.1 Mean Corpuscular Volume 93.3 Mean Corpuscular Hemoglobin 30.7 Mean Corpuscular Hemoglobin Concent 32.9 Red Cell Distribution Width 15.7 Platelet Count 222 Mean Platelet Volume 7.9 Neutrophils (%) (Auto) 83.6 Lymphocytes (%) (Auto) 6.5 Monocytes (%) (Auto) 9.0 Eosinophils (%) (Auto) 0.6 Basophils (%) (Auto) 0.3 Neutrophils # (Auto) 11.1 Lymphocytes # (Auto) 0.9 Monocytes # (Auto) 1.2 Eosinophils # (Auto) 0.1 Basophils # (Auto) 0.0 CBC Comment DIFF FINAL Differential Comment Blood Urea Nitrogen 55 Creatinine 8.42 Random Glucose 259 Total Protein 7.0 Albumin 2.7 Calcium Level 7.8 Alkaline Phosphatase 138 Aspartate Amino Transf (AST/SGOT) 14 Alanine Aminotransferase (ALT/SGPT) 22 Total Bilirubin 0.5 Sodium Level 127 Potassium Level 4.6 Chloride Level 89 Carbon Dioxide Level 27.1 Anion Gap 11 Estimat Glomerular Filtration Rate 5 Imaging Last Impressions Abdomen/Pelvis CT 05/25/17 0000 Signed Impressions: Service Date/Time: Friday, May 26, 2017 13:17 - CONCLUSION: 1. Findings characteristic of acute splenic infarction. There is heavy calcification of the splenic artery though the celiac and superior mesenteric arteries are patent. 2. Hypodense liver compatible with fatty infiltration or hepatocellular disease. 3. Diverticulosis without evidence of diverticulitis. 4. Probable left adrenal adenoma Ryhs Barker MD Physical Exam HEENT: Normocephalic; atraumatic; no jaundice. CHEST: CTA CARDIAC: RRR. ABDOMEN: Soft, obese, luq tenderness, no hepatosplenomegaly; bowel sounds are present in all four quadrants. EXTREMITIES: Right BKA SKIN: Normal; no rash; no jaundice. C[employer]S SAWYER: No focal deficits; alert and oriented times three. (Silvana Bragg) Assessment and Plan Plan ASSESSMENT: - Abdominal pain. CT Scan abdomen and pelvis (05/22/17)---> status post cholecystectomy, atrophy of both kidneys. No hydronephrosis, no acute pathology. Her pain is aggravated by deep breath, getting out of bed and movement. No relation to food intake. She did have n/v a few days ago, but also missed her HD and had electrolyte abnormalities. Has GERD, states well controlled. Unsure if she has had EGD. Never had colonoscopy. CT scan abdomen and pelvis with iv contrast (05/26/17)---> Findings characteristic of acute splenic infarction. There is heavy calcification of the splenic artery though the celiac and superior mesenteric arteries are patent. Hypodense liver compatible with fatty infiltration or hepatocellular disease. Diverticulosis without evidence of diverticulitis, probable left adrenal adenoma. Her left sided pain,likely is related to this, but has never had egd/colonoscopy and would like to have continue with plans for endoscopic evaluation. S/P EGD with incomplete colonoscopy ( 05/28/17)---> Reflux esophagitis, Pangastritis, Incomplete colonoscopy due to poor prep. Pathology pending. Pain most likely related to acute splenic infarction. - Esophagitis, Gastritis. Pathology pending. PPI - Acute splenic infarction on CT scan. Per attending. - N/V, resolved. - GERD. PPI - HCV ab (+). Undetectable viral load. She does not have an active HCV infection. - Anemia, mild. 9.3/28.1 - ESRD with electrolyte abnormalities. HD Mondays/Wednesdays/Fridays. - Fevers with recent bacteremia. Pt called Dr. Mason's office while I was in the room and according to the nurse Claudia, she has enterococcus in her blood and is supposed to be on Vancomycin 1 gram IV three times a week until May 30. T. Max 102.9. WBC 13.2 Pt is getting vanco with hd. Per attending. - Hyponatremia, Anxiety, Depression, DM, HTN, PAD, per attending. PLAN: - Renal diet as tolerated - Await pathology - PPI - Suspect her left sided abdominal pain is related to acute splenic infarct - Will need outpatient colonoscopy (incomplete colonoscopy secondary to poor prep) - Pt seen and examined by Dr. Wesley and myself and this note is written on his behalf (Silvana Bragg) Physician Comments Patient seen and examined Agree with above Continue with current supportive care Monitor labs Not much to add from a GI perspective we will sign off Patient follow-up with GI post discharge (Geovanny Wesley MD) Silvana Bragg May 29, 2017 10:15 Geovanny Wesley MD May 29, 2017 17:52
--- NOTE | 2017-05-29 13:08 | HHI.NPPN ---
Subjective Additional Remarks Patient seen alert, seen during HD, still has left upper abd. pain, and mild SOB. Review of Systems Gastrointestinal Gastrointestinal: Abdominal Pain Objective Data Data Vital Signs Date Time Temp Pulse Resp B/P (MAP) Pulse Ox O2 Delivery O2 Flow Rate FiO2 05/29/17 12:00 97.5 63 18 110/54 (72) 96 05/29/17 11:04 95 Nasal Cannula 2.00 05/29/17 08:00 97.5 64 18 127/67 (87) 95 05/29/17 04:00 98.4 78 18 121/58 (79) 91 05/29/17 01:15 100.0 90 18 141/65 (90) 95 05/29/17 00:19 102.9 104 20 235/105 (148) 93 05/28/17 22:00 Nasal Cannula 2.00 05/28/17 20:29 69 05/28/17 20:00 Nasal Cannula 2.00 05/28/17 20:00 98.5 70 18 145/68 (93) 100 05/28/17 16:00 99.0 66 20 128/58 (81) 95 05/28/17 15:59 69 118/66 (83) 94 05/28/17 15:19 98.2 72 18 98/49 (65) 95 -: 05/29/17 0618 05/29/17 0618 Physical Exam General Appearance: No Acute Distress, Comfortable Neck Neck Exam: Neck Supple Pulmonary Resp Exam: Clear Bilaterally, Breath Sounds Equal Cardiology CV Exam: Regular, Normal Sinus Rhythm Gastrointestinal/Abdomen GI Exam: Soft, Bowel Sounds Present, Distended GI Remarks tender left side on movement pressing on it do not illicit pain Extremeties Extremities Exam: Trace Edema Neurologic Neuro Exam: Alert, Awake, Oriented Psychiatric Psych Exam: Appropriate Responses Assessment/Plan Problem List: (1) ESRD (end stage renal disease) on dialysis ICD Codes: N18.6 - End stage renal disease; Z99.2 - Dependence on renal dialysis Status: Chronic Plan: HD now, removing 5 liters. K was high and Na. was low, should be on low K diet. 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 (2) Hyperkalemia ICD Codes: E87.5 - Hyperkalemia Status: Resolved Plan: elevated today - will given kayexelate. HD tomorrow. (3) Hypertension ICD Codes: I10 - Essential (primary) hypertension Status: Acute Plan: stable (4) Diabetes ICD Codes: E11.9 - Type 2 diabetes mellitus without complications Status: Chronic Problem Qualifiers (1) Diabetes: Gerri Gilbert MD May 29, 2017 13:08
[2017-05-29] MEDS ORDERED: EPOETIN ALFA 10,000 UNITS/ML VIAL IV PUSH PRN (13:15)
[2017-05-29] MEDS: GELATIN 12 MM/7 MM FOAM TOP PRN (14:39)
[2017-05-29] MEDS: SODIUM THIOSULFATE INJ 12,500 MG in WATER STERILE FOR INJ 100 ML IV PRN (14:40)
--- NOTE | 2017-05-29 16:34 | HHI.PR ---
Subjective Remarks Hemodialysis, denied pain or chest pain or short of breath, afebrile Objective Vitals Vital Signs Date Time Temp Pulse Resp B/P (MAP) Pulse Ox O2 Delivery O2 Flow Rate FiO2 05/29/17 12:00 97.5 63 18 110/54 (72) 96 05/29/17 11:04 95 Nasal Cannula 2.00 05/29/17 08:00 97.5 64 18 127/67 (87) 95 05/29/17 04:00 98.4 78 18 121/58 (79) 91 05/29/17 01:15 100.0 90 18 141/65 (90) 95 05/29/17 00:19 102.9 104 20 235/105 (148) 93 05/28/17 22:00 Nasal Cannula 2.00 05/28/17 20:29 69 05/28/17 20:00 Nasal Cannula 2.00 05/28/17 20:00 98.5 70 18 145/68 (93) 100 I/O 05/28/17 05/28/17 05/28/17 05/29/17 05/29/17 05/29/17 07:00 15:00 23:00 07:00 15:00 23:00 Intake Total 960 ml 740 ml 480 ml Output Total 0 ml 0 ml 0 ml 5000 ml Balance 960 ml 740 ml 480 ml -5000 ml Intake Oral 960 ml 240 ml 480 ml Other 500 ml Output Urine Total 0 ml 0 ml 0 ml Hemodialysis 5000 ml # Bowel Movements 0 2 1 Result Diagram: 05/29/1761705/29/1718 Objective Remarks GENERAL: This is a well-nourished, well-developed patient, in no apparent distress. SKIN: No rashes, warm and dry HEAD: Atraumatic. Normocephalic. EYES: Pupils equal round and reactive. Extraocular motions intact. No scleral icterus. ENT: Nose without bleeding, or drainage, Airway patent. NECK: Trachea midline. Supple CARDIOVASCULAR: Regular rate and rhythm without murmurs, gallops, or rubs. RESPIRATORY: Fair air entry bilaterally. No wheezes, rales, or rhonchi. GASTROINTESTINAL: Abdomen soft, non-tender, nondistended. Positive bowel sounds MUSCULOSKELETAL: Extremities without clubbing, right BKA NEUROLOGICAL: Awake and alert. Normal speech.no focal neurological deficit Procedures 05/28/17 EGD, colonoscopy A/P Problem List: (1) Hyperkalemia ICD Code: E87.5 - Hyperkalemia Status: Resolved (2) ESRD (end stage renal disease) on dialysis ICD Code: N18.6 - End stage renal disease; Z99.2 - Dependence on renal dialysis Status: Chronic (3) Anxiety ICD Code: F41.9 - Anxiety disorder, unspecified Status: Chronic (4) Depression ICD Code: F32.9 - Major depressive disorder, single episode, unspecified Status: Chronic (5) Diabetic retinopathy ICD Code: E11.319 - Type 2 diabetes mellitus with unspecified diabetic retinopathy without macular edema Status: Chronic (6) PAD (peripheral artery disease) ICD Code: I73.9 - Peripheral vascular disease, unspecified Status: Acute Permanent Comment: 10/2015 -Dr. Santillan - PAD - Rt calf/foot - angiogram done. Chronic total occlusion of AT with right AT [facility]/[employer] on 09/23/15. Right great toe not healing. Discoloration 4th toe. Dr. Garvey podiatry referral. Ultrasound 3 months for post procedure. If ok then Q6 months us with office visit. Last Edited By: Jude Ron on Oct 20, 2015 15:58 (7) Tobacco abuse ICD Code: Z72.0 - Tobacco use Status: Chronic (8) Hypertension ICD Code: I10 - Essential (primary) hypertension Status: Acute (9) Diabetes ICD Code: E11.9 - Type 2 diabetes mellitus without complications Status: Chronic (10) Abdominal pain, LUQ ICD Code: R10.12 - Left upper quadrant pain (11) Hyponatremia ICD Code: E87.1 - Hypo-osmolality and hyponatremia Assessment and Plan 1. Left upper quadrant abdominal pain: Uncertain etiology. CT abdomen/pelvis is unremarkable. Appreciate GI recommendations. EGD/colonoscopy done today. 2. Hyponatremia: Sodium improved today. Appreciate nephrology recommendations. Not currently on IV fluids. Denies vomiting, but is having diarrhea. 3. Hyperkalemia: Potassium now within normal limits. Continue hemodialysis 4. Diabetes mellitus: Monitor Accu-Cheks and cover with sliding scale insulin. 5. Bacteremia: Patient being treated for enterococcus bacteremia with vancomycin 1 g 3 times a week. Continue antibiotics. She has had fevers today. 6. End-stage renal disease: Hemodialysis per nephrology. 7. Calciphylaxis: Sodium thiosulfate with hemodialysis. Possible etiology of abdominal pain. 8. DVT prophylaxis: SCD to left lower extremity. Heparin was avoided secondary to allergy 05/29: Continue to have fever 102.9 overnight, increased WBC, send blood culture , I will consult ID for recurrent unresolved fever, patient on vancomycin, Problem Qualifiers (1) Diabetes: Meeta Juárez MD May 29, 2017 16:34
[2017-05-29] MEDS: GABAPENTIN 300 MG CAP PO SCH (16:38)
--- NOTE | 2017-05-29 16:47 | PD.CONS ---
History of Present Illness Service Infectious disease Consult Requested By Dr Simran Juárez Reason for Consult Evaluate patient with fever Primary Care Physician Venus Drummond MD Diagnoses: History of Present Illness Patient seen and examined. Records reviewed. Patient is a 46-year-old female, with end-stage renal disease, gets hemodialysis Saturday and Saturday using her right upper extremity AV fistula, [place] to the hospital complaining of 6 day history of abdominal pain specifically in the left upper quadrant. It improved a little bit with Lortab, but she started having some nausea and vomiting. She presented to the hospital, and imaging studies showed evidence of splenic infarct. Of note is the patient has been on IV antibiotic with her hemodialysis for enterococcal bacteremia. She is not clear as to what kind of workup was done and not clear as to where the infection came from. Patient has an AV fistula and it had some problem and she underwent looks like vascular work to open up her AV fistula couple months ago. Patient currently still complains of pain in the left upper quadrant. She has not had any further vomiting. Patient has no urine output since she's been on dialysis in the last 6-7 years. She denies any respiratory complaint. Denies any diarrhea. There is also history of IV drug use, but she stated that she hasn't used it in the last 6 months. 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 Patient received IV vancomycin on May 24, and has not received any IV antibiotics. In the last 2 days patient has been running fevers. Infectious disease consultation has been requested to evaluate the patient with fevers Review of Systems Constitutional: COMPLAINS OF: Fever, Chills Eyes: DENIES: Eye pain Ears, nose, mouth, throat: DENIES: Nasal discharge, Oral lesions, Throat pain, Ear Pain, Running Nose, Sinus Pain Respiratory: DENIES: Apneas, Cough, Wheezing, Shortness of breath Cardiovascular: DENIES: Chest pain, Palpitations, Syncope Gastrointestinal: COMPLAINS OF: Abdominal pain, DENIES: Diarrhea, Nausea, Vomiting, Difficulty Swallowing Musculoskeletal: DENIES: Joint pain, Joint Swelling Integumentary: COMPLAINS OF: Rash Immunologic/allergic: DENIES: Urticaria Neurologic: DENIES: Headache Psychiatric: DENIES: Hallucinations Past Family Social History Allergies: Coded Allergies: amoxicillin (Unverified Allergy, Severe, HIVES, 05/22/17) codeine (Unverified Allergy, Severe, HYPERACTIVITY &ITCH, 05/22/17) iodine (Unverified Allergy, Severe, TOPICAL/ITCH, 05/22/17) potassium iodide (Unverified Allergy, Severe, TOPICAL/ITCH, 05/22/17) povidone-iodine (Unverified Allergy, Severe, TOPICAL/ITCH, 05/22/17) sodium iodide (Unverified Allergy, Severe, TOPICAL/ITCH, 05/22/17) sodium iodide (Unverified Allergy, Severe, TOPICAL/ITCH, 05/22/17) vancomycin (Unverified Allergy, Severe, KIDNEY FAILURE, 05/22/17) iohexol (Unverified Allergy, Intermediate, HIVES, 05/22/17) Pork/Porcine Containing Products (Unverified Allergy, Unknown, 05/22/17) penicillin G (Unverified Allergy, Unknown, 05/22/17) Past Medical History ESRD - she states she started HD 5-6 years ago due to diabetic/hypertensive nephropathy and vancomycin exposure. (Dr. 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 Reported Meds & Active Scripts Active Plavix (Clopidogrel Bisulfate) 75 Mg Tab 75 Mg PO DAILY Vitamin D3 (Cholecalciferol) 5,000 Unit Cap 5,000 Units PO DAILY Omeprazole 40 Mg Cap 40 Mg PO DAILY Carvedilol 6.25 Mg Tab 6.25 Mg PO BID Reported Trazodone (Trazodone HCl) 50 Mg Tab 50 Mg PO HS Sertraline (Sertraline HCl) 100 Mg Tab 100 Mg PO DAILY Renvela (Sevelamer Carbonate) 800 Mg Tab 3,200 Mg PO QIDPC Nephro-Lory (B-Complex W/ C & Folic Acid) 1 Tab 1 Tab PO DAILY Gabapentin 600 Mg Tab 600 Mg PO TID Colace (Docusate Sodium) 100 Mg Capsule 100 Mg BID Hydroxyzine HCl 10 Mg Tab 10 Mg PO Q8HR Active Ordered Medications Tylenol prn [place] prn Albumin DUlcolax prn [place] Albumin prn Cholecalciferol Benadryl prn Colace Epogen Neurontin Heparin INsulin LActulose prn MOM prn Mannitol Reglan SL NTG prn Zofran prn Protonix Pericolace prn Senokot prn Zoloft Renvela Desyrel Vzncomycin Nephrocaps Family History Father of leukemia at age 64. He also had hypertension diabetes Mother has diabetes and hypertension and is still living at age 65 Social History She smokes 2 to 3 black and mild per day Use marijuana Denies use of alcohol States she has a prior history of IV drug use but quit 6 months ago Physical Exam Vital Signs Vital Signs Date Time Temp Pulse Resp B/P (MAP) Pulse Ox O2 Delivery O2 Flow Rate FiO2 05/29/17 12:00 97.5 63 18 110/54 (72) 96 05/29/17 11:04 95 Nasal Cannula 2.00 05/29/17 08:00 97.5 64 18 127/67 (87) 95 05/29/17 04:00 98.4 78 18 121/58 (79) 91 05/29/17 01:15 100.0 90 18 141/65 (90) 95 05/29/17 00:19 102.9 104 20 235/105 (148) 93 05/28/17 22:00 Nasal Cannula 2.00 05/28/17 20:29 69 05/28/17 20:00 Nasal Cannula 2.00 05/28/17 20:00 98.5 70 18 145/68 (93) 100 Physical Exam GENERAL: Patient is an obese, well-developed female, awake and alert, not in respiratory distress. SKIN: Warm and dry. Has superficial round ulcers on face and some in her UE HEAD: Atraumatic. Normocephalic. No temporal wasting, or tenderness. EYES: [place] conjunctiva. No petechia or hemorrhage. Pupils equal, round and reactive to light. Extraocular movements full and intact. No scleral icterus. No injection or drainage. EARS, NOSE AND THROAT: Nose without bleeding or purulent nasal discharge. No sinus tenderness. Mucous membranes pink and moist. No oral lesions noted. No exudate. No oral thrush. NECK: Trachea midline. Supple and not tender, no meningeal signs CARDIOVASCULAR: Regular rate and rhythm. No murmurs, rubs or gallops heard RESPIRATORY: Clear to auscultation. Breath sounds equal bilaterally. No rales , wheezing or rhonchi ABDOMEN: Soft, nondistended, tender in LUQ. Bowel sounds present and normoactive. No guarding. No rebound. No organomegaly. EXTREMITIES: No clubbing, cyanosis, or edema. No joint effusion, has good ROM. No calf tenderness. Well perfused and warm. RUE AVF with no evidence of infection. S/P RBKA, well healed stump NEUROLOGICAL: Awake and alert. Cranial nerves grossly intact. Motor grossly within normal limits. PSYCHIATRIC: Normal affect, calm and cooperative. LINE: No evidence of infection Laboratory Laboratory Tests Test 05/29/17 06:18 White Blood Count 13.2 Red Blood Count 3.02 Hemoglobin 9.3 Hematocrit 28.1 Mean Corpuscular Volume 93.3 Mean Corpuscular Hemoglobin 30.7 Mean Corpuscular Hemoglobin Concent 32.9 Red Cell Distribution Width 15.7 Platelet Count 222 Mean Platelet Volume 7.9 Neutrophils (%) (Auto) 83.6 Lymphocytes (%) (Auto) 6.5 Monocytes (%) (Auto) 9.0 Eosinophils (%) (Auto) 0.6 Basophils (%) (Auto) 0.3 Neutrophils # (Auto) 11.1 Lymphocytes # (Auto) 0.9 Monocytes # (Auto) 1.2 Eosinophils # (Auto) 0.1 Basophils # (Auto) 0.0 CBC Comment DIFF FINAL Differential Comment Blood Urea Nitrogen 55 Creatinine 8.42 Random Glucose 259 Total Protein 7.0 Albumin 2.7 Calcium Level 7.8 Alkaline Phosphatase 138 Aspartate Amino Transf (AST/SGOT) 14 Alanine Aminotransferase (ALT/SGPT) 22 Total Bilirubin 0.5 Sodium Level 127 Potassium Level 4.6 Chloride Level 89 Carbon Dioxide Level 27.1 Anion Gap 11 Estimat Glomerular Filtration Rate 5 Result Diagram: 05/29/17 0618 05/29/17 0618 Imaging RADIOLOGY STUDIES/FILMS REVIEWED Abdomen/Pelvis CT 05/25/17 0000 Signed Impressions: Service Date/Time: Friday, May 26, 2017 13:17 - CONCLUSION: 1. Findings characteristic of acute splenic infarction. There is heavy calcification of the splenic artery though the celiac and superior mesenteric arteries are patent. 2. Hypodense liver compatible with fatty infiltration or hepatocellular disease. 3. Diverticulosis without evidence of diverticulitis. 4. Probable left adrenal adenoma Rhys Barker MD Assessment and Plan Assessment and Plan IMPRESSION Enterococcal bacteremia being treated in HD center, source? - suspicious for endovascular focus, ?possible etiology of splenic infarct - prior Hx IVDU, claims last use was 6 months ago New fever, prob due to current Enterococcal sepsis, and she has not received any Rx ESRD on HD Skin lesions due to calciphylaxis RECOMMENDATION Get 2 BC Echo Doppler of RUE AVF to look for thrombus CXR IV Vancomycin Follow C/S Monitor temps Will determine course of Rx once work-up completed and depending on clinical progress I will follow along with you Thank you for this consultation Discussed Condition With Explained plan to the patient Discussed with Carrie Johnson MD May 29, 2017 16:46
[2017-05-29] MEDS: CARVEDILOL 6.25 MG TAB PO SCH ×2 (17:49→21:20)
[2017-05-29] MEDS: VANCOMYCIN INJ 1,000 MG in SODIUM CHLOR 0.9% 250 ML INJ 250 ML IV SCH (19:08)
[2017-05-29 19:53] LABS: HEPATITIS C RNA GENOTYPE NOT DETECTED (NOT DETECTD)
--- NOTE | 2017-05-29 21:10 | RADRPT ---
EXAM DATE/TIME: 05/29/2017 20:58 [facility] COMPARISON: CHEST SINGLE AP, February 19, 2017, 16:16. US CHEST RIGHT, February 19, 2017, 20:30. INDICATIONS : Fever. MEDICAL HISTORY : Cardiovascular disease. Diabetes mellitus type 2. Renal failure, chronic.Dialysis SURGICAL HISTORY : Cholecystectomy. ENCOUNTER: Subsequent ACUITY: 2 days PAIN SCORE: 0/10 LOCATION: Bilateral chest FINDINGS: PA and lateral views of the chest demonstrate the lungs to be symmetrically L. aerated without eviden ce of mass, infiltrate or effusion. The cardiomediastinal contours are unremarkable. Osseous struct ures are intact. CONCLUSION: Hypoaeration. Yo Romero MD on May 29, 2017 at 21:07 Board Certified Radiologist. This report was verified electronically.
[2017-05-29] MEDS: traZODone HCL 50 MG TAB PO SCH (21:22)
[2017-05-29] MEDS: diphenhydrAMINE HCL 25 MG CAP PO PRN (21:23)
--- NOTE | 2017-05-29 23:06 | RADRPT ---
EXAM DATE/TIME: 05/29/2017 20:25 [facility] COMPARISON: No previous studies available for comparison. INDICATIONS : Right arm swelling. MEDICAL HISTORY : Hypercholesterolemia. Hypertension. Dentures. Coronary artery disease. Anticoagulant therapy. Pneum onia. Renal failure. Dialysis. MRSA. Anemia. SURGICAL HISTORY : Tonsillectomy. Cholecystectomy. Teeth extracted. Cardiac catheterization. Right oopherectomy. Right below knee amputation. ENCOUNTER: Initial ACUITY: 1 day PAIN SCORE: 0/10 LOCATION: Right Arm. AREA EVALUATED: Right upper arm. FINDINGS: The fistula is intact without stenosis. Anastomosis appears normal. No venous thrombosis is identifie d. CONCLUSION: 1. Patent fistula Rhys Barker MD on May 29, 2017 at 23:04 Board Certified Radiologist. This report was verified electronically.
[2017-05-30] VITALS (9 sets, daily range): BP systolic 132–163; BP diastolic 63–71; PULSE 72–95; RESP 18–24; TEMP 98.2–100.7; O2SAT 91–98
[2017-05-30] MEDS: ACETAMINOPHEN/HYDROcodone 325 MG/5 MG TAB PO PRN ×4 (00:36→19:18)
[2017-05-30] MEDS: CHLORHEXIDINE GLUCONATE 2 % 1 PACK (2 CLOTHS) TOP SCH (03:17)
[2017-05-30] MEDS: METOCLOPRAMIDE HCL 10 MG/2 ML VIAL IV PUSH SCH ×3 (03:36→20:28)
[2017-05-30] MEDS: INSULIN ASPART SUPPLEMENTAL SCALE SQ SCH ×2 (08:00→20:29)
[2017-05-30] MEDS: CALCIUM ACETATE 667 MG CAP PO SCH ×3 (08:49→18:00)
[2017-05-30] MEDS: SEVELAMER CARBONATE 800 MG TAB PO SCH ×3 (08:49→18:00)
[2017-05-30] MEDS: PANTOPRAZOLE SOD 40 MG DELAYED RELEASE TAB PO SCH (08:49)
[2017-05-30] MEDS: CARVEDILOL 6.25 MG TAB PO SCH ×2 (08:49→20:29)
[2017-05-30] MEDS: CHOLECALCIFEROL (VIT D3) 5000 UNIT CAP PO SCH (08:49)
[2017-05-30] MEDS: SERTRALINE HCL 100 MG TAB PO SCH (08:49)
[2017-05-30] MEDS: VITAMIN B CMPLX/VITC/FOLIC AC CAP PO SCH (08:52)
[2017-05-30] MEDS: DOCUSATE SODIUM 100 MG CAP PO SCH ×2 (09:00→20:29)
[2017-05-30] MEDS: DOCUSATE SODIUM 50 MG/SENNA 8.6 MG TAB PO SCH ×2 (09:00→20:30)
[2017-05-30] MEDS ORDERED: INSULIN ASPART SUPPLEMENTAL SCALE SQ SCH (12:00)
[2017-05-30] MEDS: INSULIN ASPART 1,000 UNITS/10 ML VIAL SQ SCH ×2 (12:00→17:00)
[2017-05-30] MEDS: GABAPENTIN 300 MG CAP PO SCH (12:38)
--- NOTE | 2017-05-30 16:50 | HHI.PR ---
Subjective Remarks No fever this morning Patient told me she had fever last night Creatinine is still increasing with low sodium, blood glucose 369 I discussed with the patient and her family was at the bedside Objective Vitals Vital Signs Date Time Temp Pulse Resp B/P (MAP) Pulse Ox O2 Delivery O2 Flow Rate FiO2 05/30/17 16:03 98.7 76 18 143/70 (94) 91 05/30/17 12:00 98.4 72 18 147/66 (93) 98 05/30/17 09:41 93 Nasal Cannula 2.00 05/30/17 08:00 86 05/30/17 08:00 96 Nasal Cannula 2.00 05/30/17 08:00 98.2 75 18 142/65 (90) 92 05/30/17 04:33 Nasal Cannula 2.00 05/30/17 04:00 98.8 89 22 156/63 (94) 94 05/30/17 01:54 99.6 87 147/71 (96) 05/30/17 00:09 Nasal Cannula 2.00 05/30/17 00:00 100.7 95 20 163/68 (99) 96 05/29/17 20:03 73 05/29/17 20:00 98.2 77 20 164/82 (109) 96 05/29/17 20:00 Nasal Cannula 2.00 05/29/17 17:52 96 Nasal Cannula 2.00 I/O 05/29/17 05/29/17 05/29/17 05/30/17 05/30/17 05/30/17 07:00 15:00 23:00 07:00 15:00 23:00 Intake Total 480 ml 1030 ml 1110 ml Output Total 0 ml 5000 ml Balance 480 ml -3970 ml 1110 ml Intake Oral 480 ml 780 ml 960 ml IV Total 250 ml 150 ml Output Urine Total 0 ml 0 ml Hemodialysis 5000 ml # Voids 2 # Bowel Movements 1 0 Result Diagram: 05/29/1761705/29/17617 Objective Remarks GENERAL: This is a well-nourished, well-developed patient, in no apparent distress. SKIN: No rashes, warm and dry HEAD: Atraumatic. Normocephalic. EYES: Pupils equal round and reactive. Extraocular motions intact. No scleral icterus. ENT: Nose without bleeding, or drainage, Airway patent. NECK: Trachea midline. Supple CARDIOVASCULAR: Regular rate and rhythm without murmurs, gallops, or rubs. RESPIRATORY: Fair air entry bilaterally. No wheezes, rales, or rhonchi. GASTROINTESTINAL: Abdomen soft, non-tender, nondistended. Positive bowel sounds MUSCULOSKELETAL: Extremities without clubbing, right BKA NEUROLOGICAL: Awake and alert. Normal speech.no focal neurological deficit Procedures 05/28/17 EGD, colonoscopy A/P Problem List: (1) Hyperkalemia ICD Code: E87.5 - Hyperkalemia Status: Resolved (2) ESRD (end stage renal disease) on dialysis ICD Code: N18.6 - End stage renal disease; Z99.2 - Dependence on renal dialysis Status: Chronic (3) Anxiety ICD Code: F41.9 - Anxiety disorder, unspecified Status: Chronic (4) Depression ICD Code: F32.9 - Major depressive disorder, single episode, unspecified Status: Chronic (5) Diabetic retinopathy ICD Code: E11.319 - Type 2 diabetes mellitus with unspecified diabetic retinopathy without macular edema Status: Chronic (6) PAD (peripheral artery disease) ICD Code: I73.9 - Peripheral vascular disease, unspecified Status: Acute Permanent Comment: 10/2015 -Dr. Santillan - PAD - Rt calf/foot - angiogram done. Chronic total occlusion of AT with right AT Ath/COMMUNICATIONS INTERN on 09/23/15. Right great toe not healing. Discoloration 4th toe. Dr. Garvey podiatry referral. Ultrasound 3 months for post procedure. If ok then Q6 months us with office visit. Last Edited By: Jude Ron on Oct 20, 2015 15:58 (7) Tobacco abuse ICD Code: Z72.0 - Tobacco use Status: Chronic (8) Hypertension ICD Code: I10 - Essential (primary) hypertension Status: Acute (9) Diabetes ICD Code: E11.9 - Type 2 diabetes mellitus without complications Status: Chronic (10) Abdominal pain, LUQ ICD Code: R10.12 - Left upper quadrant pain (11) Hyponatremia ICD Code: E87.1 - Hypo-osmolality and hyponatremia Assessment and Plan 1. Left upper quadrant abdominal pain: Uncertain etiology. CT abdomen/pelvis is unremarkable. Appreciate GI recommendations. EGD/colonoscopy done today. 2. Hyponatremia: Sodium improved today. Appreciate nephrology recommendations. Not currently on IV fluids. Denies vomiting, but is having diarrhea. 3. Hyperkalemia: Potassium now within normal limits. Continue hemodialysis 4. Diabetes mellitus: Monitor Accu-Cheks and cover with sliding scale insulin. 5. Bacteremia: Patient being treated for enterococcus bacteremia with vancomycin 1 g 3 times a week. Continue antibiotics. She has had fevers today. 6. End-stage renal disease: Hemodialysis per nephrology. 7. Calciphylaxis: Sodium thiosulfate with hemodialysis. Possible etiology of abdominal pain. 8. DVT prophylaxis: SCD to left lower extremity. Heparin was avoided secondary to allergy 05/29: Continue to have fever 102.9 overnight, increased WBC, send blood culture , I will consult ID for recurrent unresolved fever, patient on vancomycin 05/30:Sodium and creatinine still pending it was 127/8.42 yesterday, blood glucose 369, Levemir has been stopped I will resume with 7 units twice a day, preprandial 2 units 3 times a day, insulin sliding scale Problem Qualifiers (1) Diabetes: Meeta Juárez MD May 30, 2017 16:50
[2017-05-30 16:59] LABS: BASOPHIL % 0.3 % (0.0-2.0); EOSINOPHIL # 0.2 TH/MM3 (0-0.4); EOSINOPHIL % 3.7 % (0.0-4.0); HEMATOCRIT 36.8 % (35.0-46.0); HEMO FLAGS DIFF FINAL; LYMPHOCYTE # 0.6 TH/MM3 (1.0-4.8); MEAN CELL VOLUME 95.2 FL (80.0-100.0); MEAN CORPUSCULAR HEMOGLOBIN 31.3 PG (27.0-34.0); MEAN CORPUSCULAR HGB CONC 32.9 % (32.0-36.0); MONO % 0.5 % (0.0-8.0); NEUT % 82.5 % (16.0-70.0); PLATELET COUNT 245 TH/MM3 (150-450); RED BLOOD COUNT 3.87 MIL/MM3 (4.00-5.30); RED CELL DISTRIBUTION WIDTH 16.1 % (11.6-17.2); WHITE BLOOD COUNT 4.8 TH/MM3 (4.0-11.0)
[2017-05-30] MEDS: CEFEPIME INJ 2,000 MG in SODIUM CHLORIDE 0.9% INJ 100 ML IV SCH (17:00)
--- NOTE | 2017-05-30 17:12 | HHI.IDPN ---
Subjective Subjective Remarks Patient is a 46-year-old female, with end-stage renal disease, gets hemodialysis Saturday and Saturday using her right upper extremity AV fistula, Persantine to the hospital complaining of 6 day history of abdominal pain specifically in the left upper quadrant. It improved a little bit with Lortab, but she started having some nausea and vomiting. She presented to the hospital, and imaging studies showed evidence of splenic infarct. Of note is the patient has been on IV antibiotic with her hemodialysis for enterococcal bacteremia. She is not clear as to what kind of workup was done and not clear as to where the infection came from. Patient has an AV fistula and it had some problem and she underwent looks like vascular work to open up her AV fistula couple months ago. Patient currently still complains of pain in the left upper quadrant. She has not had any further vomiting. Patient has no urine output since she's been on dialysis in the last 6-7 years. She denies any respiratory complaint. Denies any diarrhea. There is also history of IV drug use, but she stated that she hasn't used it in the last 6 months. 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 Patient received IV vancomycin on May 24, and has not received any IV antibiotics. In the last 2 days patient has been running fevers. Infectious disease consultation has been requested to evaluate the patient with fevers Notes reviewed Temps ok US shows AVF ok BC with Klebsiella oxytoca Low grade temps last night Had HD yesterday Got dose of Vanco yesterday Echo pending Antibiotics I attest that I obtained, updated or reviewed the home and current medications. Vancomycin Current Medications Medications (Trade) Dose Ordered Sig/Jen Route Start Time Stop Time Status Last Admin Albumin Human 100 ml @ 60 mls/hr UNSCH PRN IV 05/22/17 21:15 ([place] 5-325 Mg) 1 tab Q6H PRN PO 05/22/17 21:30 05/23/17 08:49 ([place] 5-325 Mg) 2 tab Q6H PRN PO 05/22/17 21:30 05/30/17 12:39 (NS Flush) 2 ml UNSCH PRN IV FLUSH 05/23/17 01:00 (NS Flush) 2 ml BID IV FLUSH 05/23/17 09:00 05/29/17 21:20 (Protonix) 40 mg DAILY PO 05/23/17 09:00 05/30/17 08:49 Miscellaneous Information 1 Q361D XX 05/23/17 01:00 (Chlorhexidine 2% Cloth) Taper DAILY@04 TOP 05/23/17 04:00 05/19/18 03:59 05/28/17 04:18 (Chlorhexidine 2% Cloth) 3 pack UNSCH PRN TOP 05/23/17 01:00 (Areli-Colace) 1 tab BID PO 05/23/17 09:00 05/26/17 08:34 (Milk Of Magnesia Liq) 30 ml Q12H PRN PO 05/23/17 01:00 (Senokot) 17.2 mg Q12H PRN PO 05/23/17 01:00 (Dulcolax Supp) 10 mg DAILY PRN RECTAL 05/23/17 01:00 (Lactulose Liq) 30 ml DAILY PRN PO 05/23/17 01:00 Sodium Chloride 1,000 ml @ 0 mls/hr Q0M PRN OTHER 05/23/17 01:15 05/23/17 01:23 (Heparin Inj) 8,000 units UNSCH PRN IV FLUSH 05/23/17 01:15 Sodium Chloride 1,000 ml @ 200 mls/hr Q5H PRN IV 05/23/17 01:15 Sodium Chloride 1,000 ml @ 0 mls/hr Q0M PRN OTHER 05/23/17 01:15 (Mannitol Inj) 12.5 gm UNSCH PRN IV 05/23/17 01:15 (NS Flush) 5 ml UNSCH PRN IV FLUSH 05/23/17 01:15 (Heparin Inj) UNSCH PRN .XX 05/23/17 01:15 (Gentamicin (Dialysis) Inj) 20 mg UNSCH PRN OTHER 05/23/17 01:15 (Zofran Inj) 4 mg UNSCH PRN IV PUSH 05/23/17 01:15 (Tylenol) 650 mg UNSCH PRN PO 05/23/17 01:15 (Benadryl) 25 mg UNSCH PRN PO 05/23/17 01:15 05/29/17 21:23 (Nitrostat Sl) 0.4 mg UNSCH PRN SL 05/23/17 01:15 (Catapres) 0.1 mg UNSCH PRN PO 05/23/17 01:15 (Gelfoam 12 Mm/7 Mm Top) 1 foam UNSCH PRN TOP 05/23/17 01:15 05/29/17 14:39 (Coreg) 6.25 mg BID PO 05/23/17 09:00 05/30/17 08:49 (Vitamin D3) 5,000 units DAILY PO 05/23/17 09:00 05/30/17 08:49 (Plavix) 75 mg DAILY PO 05/23/17 09:00 Future Hold 05/26/17 08:34 (Colace) 100 mg BID PO 05/23/17 09:00 05/26/17 08:34 (Zoloft) 100 mg DAILY PO 05/23/17 09:00 05/30/17 08:49 (Renvela) 3,200 mg TID PO 05/23/17 09:00 05/30/17 12:38 (Desyrel) 50 mg HS PO 05/23/17 21:00 05/29/17 21:22 (Nephrocaps) 1 cap DAILY PO 05/23/17 09:00 05/30/17 08:52 (Reglan Inj) 5 mg Q8H IV PUSH 05/23/17 12:00 05/30/17 12:39 (Neurontin) 300 mg Q24H PO 05/25/17 13:00 05/30/17 12:38 (Phoslo) 1,334 mg TID PO 05/25/17 18:00 05/30/17 12:38 Sodium Thiosulfate 04235 mg/Sterile Water 150 ml @ 150 mls/hr WITH DIALYSIS PRN IV 05/25/17 14:15 05/29/17 14:40 (D50w (Vial) Inj) 50 ml UNSCH PRN IV PUSH 05/25/17 15:30 05/28/17 08:53 (Glucagon Inj) 1 mg UNSCH PRN OTHER 05/25/17 15:30 (Epogen Inj) 10,000 units UNSCH PRN IV PUSH 05/29/17 13:15 Vancomycin HCl 1000 mg/Sodium Chloride 250 ml @ 250 mls/hr MoWeFr IV 05/29/17 18:00 05/29/17 19:08 (Levemir Inj) 7 units Q12HR SQ 05/30/17 12:15 (NovoLOG SUPPLEMENTAL SCALE) 1 ACHS SLIDING SCALE SQ 05/30/17 12:00 05/30/17 12:00 (NovoLOG INJ) 2 units TIDAC SQ 05/30/17 12:00 05/30/17 12:00 Cefepime HCl 2000 mg/Sodium Chloride 100 ml @ 200 mls/hr Q24H IV 05/30/17 17:00 Lines PIV Past Medical History ESRD - she states she started HD 5-6 years ago due to diabetic/hypertensive nephropathy and vancomycin exposure. (Dr. 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 Past Surgical History Cholecystectomy Right upper extremity fistula Right nephrectomy due to ovarian cyst Dental extractions Tonsillectomy RBKA Allergies: Coded Allergies: codeine (Unverified Allergy, Severe, HYPERACTIVITY &ITCH, 05/22/17) iodine (Unverified Allergy, Severe, TOPICAL/ITCH, 05/22/17) potassium iodide (Unverified Allergy, Severe, TOPICAL/ITCH, 05/22/17) povidone-iodine (Unverified Allergy, Severe, TOPICAL/ITCH, 05/22/17) sodium iodide (Unverified Allergy, Severe, TOPICAL/ITCH, 05/22/17) sodium iodide (Unverified Allergy, Severe, TOPICAL/ITCH, 05/22/17) iohexol (Unverified Allergy, Intermediate, HIVES, 05/22/17) Pork/Porcine Containing Products (Unverified Allergy, Unknown, 05/22/17) penicillin G (Unverified Allergy, Unknown, 05/22/17) Objective . Vital Signs Date Time Temp Pulse Resp B/P (MAP) Pulse Ox O2 Delivery O2 Flow Rate FiO2 05/30/17 16:03 98.7 76 18 143/70 (94) 91 05/30/17 12:00 98.4 72 18 147/66 (93) 98 05/30/17 09:41 93 Nasal Cannula 2.00 05/30/17 08:00 86 05/30/17 08:00 96 Nasal Cannula 2.00 05/30/17 08:00 98.2 75 18 142/65 (90) 92 05/30/17 04:33 Nasal Cannula 2.00 05/30/17 04:00 98.8 89 22 156/63 (94) 94 05/30/17 01:54 99.6 87 147/71 (96) 05/30/17 00:09 Nasal Cannula 2.00 05/30/17 00:00 100.7 95 20 163/68 (99) 96 05/29/17 20:03 73 05/29/17 20:00 98.2 77 20 164/82 (109) 96 05/29/17 20:00 Nasal Cannula 2.00 05/29/17 17:52 96 Nasal Cannula 2.00 . Laboratory Tests Test 05/29/17 06:18 05/30/17 16:02 White Blood Count 13.2 TH/MM3 Red Blood Count 3.02 MIL/MM3 Hemoglobin 9.3 GM/DL Hematocrit 28.1 % Mean Corpuscular Volume 93.3 FL Mean Corpuscular Hemoglobin 30.7 PG Mean Corpuscular Hemoglobin Concent 32.9 % Red Cell Distribution Width 15.7 % Platelet Count 222 TH/MM3 Mean Platelet Volume 7.9 FL Neutrophils (%) (Auto) 83.6 % Lymphocytes (%) (Auto) 6.5 % Monocytes (%) (Auto) 9.0 % Eosinophils (%) (Auto) 0.6 % Basophils (%) (Auto) 0.3 % Neutrophils # (Auto) 11.1 TH/MM3 Lymphocytes # (Auto) 0.9 TH/MM3 Monocytes # (Auto) 1.2 TH/MM3 Eosinophils # (Auto) 0.1 TH/MM3 Basophils # (Auto) 0.0 TH/MM3 CBC Comment DIFF FINAL Differential Comment Laboratory Tests Test 05/29/17 06:18 05/30/17 16:02 Blood Urea Nitrogen 55 MG/DL Creatinine 8.42 MG/DL Random Glucose 259 MG/DL Total Protein 7.0 GM/DL Albumin 2.7 GM/DL Calcium Level 7.8 MG/DL Alkaline Phosphatase 138 U/L Aspartate Amino Transf (AST/SGOT) 14 U/L Alanine Aminotransferase (ALT/SGPT) 22 U/L Total Bilirubin 0.5 MG/DL Sodium Level 127 MEQ/L Potassium Level 4.6 MEQ/L Chloride Level 89 MEQ/L Carbon Dioxide Level 27.1 MEQ/L Anion Gap 11 MEQ/L Estimat Glomerular Filtration Rate 5 ML/MIN Microbiology Date/Time Source Procedure Growth Status 05/30/17 08:55 Blood Peripheral Aerobic Blood Culture Pending Received 05/30/17 08:55 Blood Peripheral Anaerobic Blood Culture Pending Received 05/29/17 21:41 Blood Peripheral Aerobic Blood Culture - Preliminary NO GROWTH IN 1 DAY Resulted 05/29/17 21:41 Anaerobic Blood Culture - Preliminary Klebsiella Oxytoca Resulted 05/29/17 21:34 Blood Peripheral Aerobic Blood Culture - Preliminary NO GROWTH IN 1 DAY Resulted 05/29/17 21:34 Anaerobic Blood Culture - Preliminary Gram Negative Prateek Resulted Imaging Last Impressions Upper Extremity Ultrasound 05/29/17 0000 Signed Impressions: Service Date/Time: Monday, May 29, 2017 20:25 - CONCLUSION: 1. Patent fistula Rhys Barker MD Chest X-Ray 05/29/17 0000 Signed Impressions: Service Date/Time: Monday, May 29, 2017 20:58 - CONCLUSION: Hypoaeration. Yo Romero MD Abdomen/Pelvis CT 05/25/17 0000 Signed Impressions: Service Date/Time: Friday, May 26, 2017 13:17 - CONCLUSION: 1. Findings characteristic of acute splenic infarction. There is heavy calcification of the splenic artery though the celiac and superior mesenteric arteries are patent. 2. Hypodense liver compatible with fatty infiltration or hepatocellular disease. 3. Diverticulosis without evidence of diverticulitis. 4. Probable left adrenal adenoma Rhys Barker MD Physical Exam GENERAL: awake and alert, not in respiratory distress. SKIN: Warm and dry. Has superficial round ulcers on face and some in her UE HEAD: Atraumatic. Normocephalic. No temporal wasting, or tenderness. EYES: [place] conjunctiva. No petechia or hemorrhage. Pupils equal, round and reactive to light. Extraocular movements full and intact. No scleral icterus. No injection or drainage. EARS, NOSE AND THROAT: Nose without bleeding or purulent nasal discharge. No sinus tenderness. Mucous membranes pink and moist. No oral lesions noted. No exudate. No oral thrush. NECK: Trachea midline. Supple and not tender, no meningeal signs CARDIOVASCULAR: Regular rate and rhythm. No murmurs, rubs or gallops heard RESPIRATORY: Clear to auscultation. Breath sounds equal bilaterally. No rales , wheezing or rhonchi ABDOMEN: Soft, nondistended, tender in LUQ. Bowel sounds present and normoactive. No guarding. No rebound. No organomegaly. EXTREMITIES: No clubbing, cyanosis, or edema. No calf tenderness. Well perfused and warm. RUE AVF with no evidence of infection. S/P RBKA, well healed stump NEUROLOGICAL: Awake and alert. Cranial nerves grossly intact. Motor grossly within normal limits. PSYCHIATRIC: Normal affect, calm and cooperative. LINE: No evidence of infection Assessment & Plan Remarks IMPRESSION Enterococcal bacteremia being treated in HD center, source? - suspicious for endovascular focus, ?possible etiology of splenic infarct - prior Hx IVDU, claims last use was 6 months ago Klebsiella bacteremia, source ?If still with active IVDU - states she has not used in last 6 months New fever, prob due to current Enterococcal sepsis, and she has not received any Rx ESRD on HD Skin lesions due to calciphylaxis RECOMMENDATION Await echo - may need MARILU Add Cefepime Repeat BC when she goes for her next HD Continue IV Vancomycin Follow C/S Monitor Carrie John MD May 30, 2017 17:12
[2017-05-30 17:17] LABS: BICARBONATE 26.5 MEQ/L (21.0-32.0); POTASSIUM 5.3 MEQ/L (3.5-5.1)
[2017-05-30] MEDS: INSULIN DETEMIR 100 UNITS/ML VIAL SQ SCH ×2 (17:20→17:51)
--- NOTE | 2017-05-30 18:39 | HHI.NPPN ---
Subjective Additional Remarks Patient seen alert, seen during HD, still has left upper abd. pain, and mild SOB. Review of Systems Gastrointestinal Gastrointestinal: Abdominal Pain Objective Data Data 05/30/17 05/31/17 19:00 07:00 Intake Total 480 ml Balance 480 ml Intake Oral 480 ml # Voids 3 Vital Signs Date Time Temp Pulse Resp B/P (MAP) Pulse Ox O2 Delivery O2 Flow Rate FiO2 05/30/17 18:01 91 Nasal Cannula 2.00 05/30/17 16:03 98.7 76 18 143/70 (94) 91 05/30/17 12:00 98.4 72 18 147/66 (93) 98 05/30/17 09:41 93 Nasal Cannula 2.00 05/30/17 08:00 86 05/30/17 08:00 96 Nasal Cannula 2.00 05/30/17 08:00 98.2 75 18 142/65 (90) 92 05/30/17 04:33 Nasal Cannula 2.00 05/30/17 04:00 98.8 89 22 156/63 (94) 94 05/30/17 01:54 99.6 87 147/71 (96) 05/30/17 00:09 Nasal Cannula 2.00 05/30/17 00:00 100.7 95 20 163/68 (99) 96 05/29/17 20:03 73 05/29/17 20:00 98.2 77 20 164/82 (109) 96 05/29/17 20:00 Nasal Cannula 2.00 -: 05/30/17 1602 05/30/17 1602 Microbiology 05/30/17 Aerobic Blood Culture, Received Pending 05/30/17 Anaerobic Blood Culture, Received Pending 05/29/17 Aerobic Blood Culture - Preliminary, Resulted NO GROWTH IN 1 DAY 05/29/17 Anaerobic Blood Culture - Preliminary, Resulted Klebsiella Oxytoca 05/29/17 Aerobic Blood Culture - Preliminary, Resulted NO GROWTH IN 1 DAY 05/29/17 Anaerobic Blood Culture - Preliminary, Resulted Gram Negative Prateek Physical Exam General Appearance: No Acute Distress, Comfortable Neck Neck Exam: Neck Supple Pulmonary Resp Exam: Clear Bilaterally, Breath Sounds Equal Cardiology CV Exam: Regular, Normal Sinus Rhythm Gastrointestinal/Abdomen GI Exam: Soft, Bowel Sounds Present, Distended GI Remarks tender left side on movement pressing on it do not illicit pain Extremeties Extremities Exam: Trace Edema Neurologic Neuro Exam: Alert, Awake, Oriented Psychiatric Psych Exam: Appropriate Responses Assessment/Plan Problem List: (1) ESRD (end stage renal disease) on dialysis ICD Codes: N18.6 - End stage renal disease; Z99.2 - Dependence on renal dialysis Status: Chronic Plan: HD next tomorrow left side Abd pain is possibly muscular, as aggravated by movement patient not allergic to vancomycin continue HD M,W,F Left ischemic foot Apparently has been on sodium thiosulfate as outpatient for calciphylaxis, has been here also. (2) Hyperkalemia ICD Codes: E87.5 - Hyperkalemia Status: Resolved Plan: elevated today - HD tomorrow. (3) Hypertension ICD Codes: I10 - Essential (primary) hypertension Status: Acute Plan: stable (4) Diabetes ICD Codes: E11.9 - Type 2 diabetes mellitus without complications Status: Chronic Problem Qualifiers (1) Diabetes: Gerri Gilbert MD May 30, 2017 18:38
[2017-05-30] MEDS: SODIUM CHLORIDE 0.9% FLUSH 10 ML FLUSH IV FLUSH SCH (20:27)
[2017-05-30] MEDS: traZODone HCL 50 MG TAB PO SCH (20:30)
[2017-05-31] VITALS (9 sets, daily range): BP systolic 122–163; BP diastolic 58–91; PULSE 61–104; RESP 16–24; TEMP 98.3–102.7; O2SAT 94–98
[2017-05-31] MEDS: INSULIN ASPART SUPPLEMENTAL SCALE SQ SCH ×7 (00:55→23:53)
[2017-05-31] MEDS: ACETAMINOPHEN/HYDROcodone 325 MG/5 MG TAB PO PRN ×3 (02:42→20:51)
[2017-05-31] MEDS: METOCLOPRAMIDE HCL 10 MG/2 ML VIAL IV PUSH SCH ×3 (03:53→20:57)
[2017-05-31] MEDS: CHLORHEXIDINE GLUCONATE 2 % 1 PACK (2 CLOTHS) TOP SCH (04:00)
[2017-05-31] MEDS: VITAMIN B CMPLX/VITC/FOLIC AC CAP PO SCH (08:05)
[2017-05-31] MEDS: SEVELAMER CARBONATE 800 MG TAB PO SCH ×3 (08:05→18:52)
[2017-05-31] MEDS: CALCIUM ACETATE 667 MG CAP PO SCH ×3 (08:05→18:52)
[2017-05-31] MEDS: CARVEDILOL 6.25 MG TAB PO SCH ×2 (08:05→20:49)
[2017-05-31] MEDS: SERTRALINE HCL 100 MG TAB PO SCH (08:05)
[2017-05-31] MEDS: PANTOPRAZOLE SOD 40 MG DELAYED RELEASE TAB PO SCH (08:06)
[2017-05-31] MEDS: CHOLECALCIFEROL (VIT D3) 5000 UNIT CAP PO SCH (08:06)
[2017-05-31] MEDS: SODIUM CHLORIDE 0.9% FLUSH 10 ML FLUSH IV FLUSH SCH ×2 (08:06→21:01)
[2017-05-31] MEDS: INSULIN DETEMIR 100 UNITS/ML VIAL SQ SCH ×2 (08:07→20:52)
[2017-05-31] MEDS: INSULIN ASPART 1,000 UNITS/10 ML VIAL SQ SCH ×3 (08:08→17:01)
[2017-05-31] MEDS: DOCUSATE SODIUM 100 MG CAP PO SCH ×2 (08:08→21:00)
[2017-05-31] MEDS: DOCUSATE SODIUM 50 MG/SENNA 8.6 MG TAB PO SCH ×2 (08:08→21:00)
--- NOTE | 2017-05-31 09:13 | HHI.IDPN ---
Subjective Subjective Remarks Patient is a 46-year-old female, with end-stage renal disease, gets hemodialysis Saturday and Saturday using her right upper extremity AV fistula, [place] to the hospital complaining of 6 day history of abdominal pain specifically in the left upper quadrant. It improved a little bit with Lortab, but she started having some nausea and vomiting. She presented to the hospital, and imaging studies showed evidence of splenic infarct. Of note is the patient has been on IV antibiotic with her hemodialysis for enterococcal bacteremia. She is not clear as to what kind of workup was done and not clear as to where the infection came from. Patient has an AV fistula and it had some problem and she underwent looks like vascular work to open up her AV fistula couple months ago. Patient currently still complains of pain in the left upper quadrant. She has not had any further vomiting. Patient has no urine output since she's been on dialysis in the last 6-7 years. She denies any respiratory complaint. Denies any diarrhea. There is also history of IV drug use, but she stated that she hasn't used it in the last 6 months. 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 Patient received IV vancomycin on May 24, and has not received any IV antibiotics. In the last 2 days patient has been running fevers. Infectious disease consultation has been requested to evaluate the patient with fevers Notes reviewed Getting HD this morning Spoke with HD RN - to get BC from AVF Low grade temps overnight US shows AVF ok BC with Klebsiella oxytoca Echo pending BC 05/30 - pending Antibiotics I attest that I obtained, updated or reviewed the home and current medications. Vancomycin Cefepime Current Medications Medications (Trade) Dose Ordered Sig/Jen Route Start Time Stop Time Status Last Admin Albumin Human 100 ml @ 60 mls/hr UNSCH PRN IV 05/22/17 21:15 ([place] 5-325 Mg) 1 tab Q6H PRN PO 05/22/17 21:30 05/23/17 08:49 ([place] 5-325 Mg) 2 tab Q6H PRN PO 05/22/17 21:30 05/31/17 02:42 (NS Flush) 2 ml UNSCH PRN IV FLUSH 05/23/17 01:00 (NS Flush) 2 ml BID IV FLUSH 05/23/17 09:00 05/31/17 08:06 (Protonix) 40 mg DAILY PO 05/23/17 09:00 05/31/17 08:06 Miscellaneous Information 1 Q361D XX 05/23/17 01:00 (Chlorhexidine 2% Cloth) Taper DAILY@04 TOP 05/23/17 04:00 05/19/18 03:59 05/28/17 04:18 (Chlorhexidine 2% Cloth) 3 pack UNSCH PRN TOP 05/23/17 01:00 (Areli-Colace) 1 tab BID PO 05/23/17 09:00 05/26/17 08:34 (Milk Of Magnesia Liq) 30 ml Q12H PRN PO 05/23/17 01:00 (Senokot) 17.2 mg Q12H PRN PO 05/23/17 01:00 (Dulcolax Supp) 10 mg DAILY PRN RECTAL 05/23/17 01:00 (Lactulose Liq) 30 ml DAILY PRN PO 05/23/17 01:00 Sodium Chloride 1,000 ml @ 0 mls/hr Q0M PRN OTHER 05/23/17 01:15 05/23/17 01:23 (Heparin Inj) 8,000 units UNSCH PRN IV FLUSH 05/23/17 01:15 Sodium Chloride 1,000 ml @ 200 mls/hr Q5H PRN IV 05/23/17 01:15 Sodium Chloride 1,000 ml @ 0 mls/hr Q0M PRN OTHER 05/23/17 01:15 (Mannitol Inj) 12.5 gm UNSCH PRN IV 05/23/17 01:15 (NS Flush) 5 ml UNSCH PRN IV FLUSH 05/23/17 01:15 (Heparin Inj) UNSCH PRN .XX 05/23/17 01:15 (Gentamicin (Dialysis) Inj) 20 mg UNSCH PRN OTHER 05/23/17 01:15 (Zofran Inj) 4 mg UNSCH PRN IV PUSH 05/23/17 01:15 (Tylenol) 650 mg UNSCH PRN PO 05/23/17 01:15 (Benadryl) 25 mg UNSCH PRN PO 05/23/17 01:15 05/29/17 21:23 (Nitrostat Sl) 0.4 mg UNSCH PRN SL 05/23/17 01:15 (Catapres) 0.1 mg UNSCH PRN PO 05/23/17 01:15 (Gelfoam 12 Mm/7 Mm Top) 1 foam UNSCH PRN TOP 05/23/17 01:15 05/29/17 14:39 (Coreg) 6.25 mg BID PO 05/23/17 09:00 05/31/17 08:05 (Vitamin D3) 5,000 units DAILY PO 05/23/17 09:00 05/31/17 08:06 (Plavix) 75 mg DAILY PO 05/23/17 09:00 Future Hold 05/26/17 08:34 (Colace) 100 mg BID PO 05/23/17 09:00 05/26/17 08:34 (Zoloft) 100 mg DAILY PO 05/23/17 09:00 05/31/17 08:05 (Renvela) 3,200 mg TID PO 05/23/17 09:00 05/31/17 08:05 (Desyrel) 50 mg HS PO 05/23/17 21:00 05/30/17 20:30 (Nephrocaps) 1 cap DAILY PO 05/23/17 09:00 05/31/17 08:05 (Reglan Inj) 5 mg Q8H IV PUSH 05/23/17 12:00 05/31/17 03:53 (Neurontin) 300 mg Q24H PO 05/25/17 13:00 05/30/17 12:38 (Phoslo) 1,334 mg TID PO 05/25/17 18:00 05/31/17 08:05 Sodium Thiosulfate 59370 mg/Sterile Water 150 ml @ 150 mls/hr WITH DIALYSIS PRN IV 05/25/17 14:15 05/29/17 14:40 (D50w (Vial) Inj) 50 ml UNSCH PRN IV PUSH 05/25/17 15:30 05/28/17 08:53 (Glucagon Inj) 1 mg UNSCH PRN OTHER 05/25/17 15:30 (Epogen Inj) 10,000 units UNSCH PRN IV PUSH 05/29/17 13:15 Vancomycin HCl 1000 mg/Sodium Chloride 250 ml @ 250 mls/hr MoWeFr IV 05/29/17 18:00 05/29/17 19:08 (Levemir Inj) 7 units Q12HR SQ 05/30/17 12:15 05/31/17 08:07 (NovoLOG INJ) 2 units TIDAC SQ 05/30/17 12:00 05/31/17 08:08 Cefepime HCl 2000 mg/Sodium Chloride 100 ml @ 200 mls/hr Q24H IV 05/30/17 17:00 05/30/17 17:00 (NovoLOG SUPPLEMENTAL SCALE) 1 Q4HR SQ 05/30/17 20:00 05/31/17 04:07 Lines PIV Past Medical History ESRD - she states she started HD 5-6 years ago due to diabetic/hypertensive nephropathy and vancomycin exposure. (Dr. 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 Past Surgical History Cholecystectomy Right upper extremity fistula Right nephrectomy due to ovarian cyst Dental extractions Tonsillectomy RBKA Allergies: Coded Allergies: codeine (Unverified Allergy, Severe, HYPERACTIVITY &ITCH, 05/22/17) iodine (Unverified Allergy, Severe, TOPICAL/ITCH, 05/22/17) potassium iodide (Unverified Allergy, Severe, TOPICAL/ITCH, 05/22/17) povidone-iodine (Unverified Allergy, Severe, TOPICAL/ITCH, 05/22/17) sodium iodide (Unverified Allergy, Severe, TOPICAL/ITCH, 05/22/17) sodium iodide (Unverified Allergy, Severe, TOPICAL/ITCH, 05/22/17) iohexol (Unverified Allergy, Intermediate, HIVES, 05/22/17) Pork/Porcine Containing Products (Unverified Allergy, Unknown, 05/22/17) penicillin G (Unverified Allergy, Unknown, 05/22/17) Objective . Vital Signs Date Time Temp Pulse Resp B/P (MAP) Pulse Ox O2 Delivery O2 Flow Rate FiO2 05/31/17 08:00 98.4 61 16 98 05/31/17 04:00 98.8 63 24 154/66 (95) 94 05/31/17 00:00 98.9 69 22 122/58 (79) 95 05/30/17 20:00 99.9 88 24 132/63 (86) 93 05/30/17 20:00 84 05/30/17 19:30 Room Air 05/30/17 18:01 91 Nasal Cannula 2.00 05/30/17 16:03 98.7 76 18 143/70 (94) 91 05/30/17 12:00 98.4 72 18 147/66 (93) 98 05/30/17 09:41 93 Nasal Cannula 2.00 . Laboratory Tests Test 05/30/17 16:02 White Blood Count 4.8 TH/MM3 Red Blood Count 3.87 MIL/MM3 Hemoglobin 12.1 GM/DL Hematocrit 36.8 % Mean Corpuscular Volume 95.2 FL Mean Corpuscular Hemoglobin 31.3 PG Mean Corpuscular Hemoglobin Concent 32.9 % Red Cell Distribution Width 16.1 % Platelet Count 245 TH/MM3 Mean Platelet Volume 8.1 FL Neutrophils (%) (Auto) 82.5 % Lymphocytes (%) (Auto) 13.0 % Monocytes (%) (Auto) 0.5 % Eosinophils (%) (Auto) 3.7 % Basophils (%) (Auto) 0.3 % Neutrophils # (Auto) 4.0 TH/MM3 Lymphocytes # (Auto) 0.6 TH/MM3 Monocytes # (Auto) 0.0 TH/MM3 Eosinophils # (Auto) 0.2 TH/MM3 Basophils # (Auto) 0.0 TH/MM3 CBC Comment DIFF FINAL Differential Comment Laboratory Tests Test 05/30/17 16:02 Blood Urea Nitrogen 43 MG/DL Creatinine 6.90 MG/DL Random Glucose 124 MG/DL Calcium Level 9.1 MG/DL Sodium Level 129 MEQ/L Potassium Level 5.3 MEQ/L Chloride Level 92 MEQ/L Carbon Dioxide Level 26.5 MEQ/L Anion Gap 11 MEQ/L Estimat Glomerular Filtration Rate 6 ML/MIN Microbiology Date/Time Source Procedure Growth Status 05/30/17 08:55 Blood Peripheral Aerobic Blood Culture Pending Received 05/30/17 08:55 Blood Peripheral Anaerobic Blood Culture Pending Received 05/29/17 21:41 Blood Peripheral Aerobic Blood Culture - Preliminary NO GROWTH IN 1 DAY Resulted 05/29/17 21:41 Anaerobic Blood Culture - Preliminary Klebsiella Oxytoca Resulted 05/29/17 21:34 Blood Peripheral Aerobic Blood Culture - Preliminary NO GROWTH IN 1 DAY Resulted 05/29/17 21:34 Anaerobic Blood Culture - Preliminary Gram Negative Prateek Resulted Imaging Last Impressions Upper Extremity Ultrasound 05/29/17 0000 Signed Impressions: Service Date/Time: Monday, May 29, 2017 20:25 - CONCLUSION: 1. Patent fistula Rhys Barker MD Chest X-Ray 05/29/17 0000 Signed Impressions: Service Date/Time: Monday, May 29, 2017 20:58 - CONCLUSION: Hypoaeration. Yo Romero MD Abdomen/Pelvis CT 05/25/17 0000 Signed Impressions: Service Date/Time: Friday, May 26, 2017 13:17 - CONCLUSION: 1. Findings characteristic of acute splenic infarction. There is heavy calcification of the splenic artery though the celiac and superior mesenteric arteries are patent. 2. Hypodense liver compatible with fatty infiltration or hepatocellular disease. 3. Diverticulosis without evidence of diverticulitis. 4. Probable left adrenal adenoma Rhys Barker MD Physical Exam GENERAL: awake and alert, not in respiratory distress. SKIN: Warm and dry. Has superficial round ulcers on face and some in her UE HEAD: Atraumatic. Normocephalic. No temporal wasting, or tenderness. EYES: [place] conjunctiva. No petechia or hemorrhage. Pupils equal, round and reactive to light. Extraocular movements full and intact. No scleral icterus. No injection or drainage. EARS, NOSE AND THROAT: Nose without bleeding or purulent nasal discharge. No sinus tenderness. Mucous membranes pink and moist. No oral lesions noted. No exudate. No oral thrush. NECK: Trachea midline. Supple and not tender, no meningeal signs CARDIOVASCULAR: Regular rate and rhythm. No murmurs, rubs or gallops heard RESPIRATORY: Clear to auscultation. Breath sounds equal bilaterally. No rales , wheezing or rhonchi ABDOMEN: Soft, nondistended, tender in LUQ. Bowel sounds present and normoactive. No guarding. No rebound. No organomegaly. EXTREMITIES: No clubbing, cyanosis, or edema. No calf tenderness. Well perfused and warm. RUE AVF with no evidence of infection. S/P RBKA, well healed stump NEUROLOGICAL: Awake and alert. Cranial nerves grossly intact. Motor grossly within normal limits. PSYCHIATRIC: Normal affect, calm and cooperative. LINE: No evidence of infection Assessment & Plan Remarks IMPRESSION Enterococcal bacteremia being treated in HD center, source? 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
--- NOTE | 2017-05-31 11:24 | HHI.NPPN ---
Subjective Additional Remarks Patient seen alert, seen during HD, states feels tied, feverish Review of Systems Gastrointestinal Gastrointestinal: Abdominal Pain Objective Data Data Vital Signs Date Time Temp Pulse Resp B/P (MAP) Pulse Ox O2 Delivery O2 Flow Rate FiO2 05/31/17 10:16 98 Nasal Cannula 2.00 05/31/17 08:15 62 05/31/17 08:00 98 Room Air 05/31/17 08:00 98.4 61 16 163/73 (103) 98 05/31/17 04:00 98.8 63 24 154/66 (95) 94 05/31/17 00:00 98.9 69 22 122/58 (79) 95 05/30/17 20:00 99.9 88 24 132/63 (86) 93 05/30/17 20:00 84 05/30/17 19:30 Room Air 05/30/17 18:01 91 Nasal Cannula 2.00 05/30/17 16:03 98.7 76 18 143/70 (94) 91 05/30/17 12:00 98.4 72 18 147/66 (93) 98 -: 05/30/17 1602 05/30/17 1602 Physical Exam General Appearance: No Acute Distress, Comfortable Neck Neck Exam: Neck Supple Pulmonary Resp Exam: Clear Bilaterally, Breath Sounds Equal Cardiology CV Exam: Regular, Normal Sinus Rhythm Gastrointestinal/Abdomen GI Exam: Soft, Bowel Sounds Present, Distended GI Remarks tender left side on movement pressing on it do not illicit pain Extremeties Extremities Exam: Trace Edema Neurologic Neuro Exam: Alert, Awake, Oriented Psychiatric Psych Exam: Appropriate Responses Assessment/Plan Problem List: (1) ESRD (end stage renal disease) on dialysis ICD Codes: N18.6 - End stage renal disease; Z99.2 - Dependence on renal dialysis Status: Chronic Plan: HD now, removing 5 liters. K was high and Na. was low, should be on low K diet. left side Abd pain is possibly muscular, as aggravated by movement continue HD M,W,F Left ischemic foot Apparently on sodium thiosulfate as outpatient for calciphylaxis, has been here also. continue Vancomycin (2) Hyperkalemia ICD Codes: E87.5 - Hyperkalemia Status: Resolved Plan: elevated today - on HD (3) Hypertension ICD Codes: I10 - Essential (primary) hypertension Status: Acute Plan: stable (4) Diabetes ICD Codes: E11.9 - Type 2 diabetes mellitus without complications Status: Chronic Problem Qualifiers (1) Diabetes: Gerri Gilbert MD May 31, 2017 11:24
[2017-05-31] MEDS: SODIUM THIOSULFATE INJ 12,500 MG in WATER STERILE FOR INJ 100 ML IV PRN (12:39)
[2017-05-31] MEDS: GABAPENTIN 300 MG CAP PO SCH (13:30)
--- NOTE | 2017-05-31 15:44 | HHI.PR ---
Subjective Remarks Patient continued to have intermittent fever, temperature of 100.7 at midnight No other issues is on iv antibiotic per ID Objective Vitals Vital Signs Date Time Temp Pulse Resp B/P (MAP) Pulse Ox O2 Delivery O2 Flow Rate FiO2 05/31/17 13:40 97 Room Air 05/31/17 13:30 98.8 69 16 144/67 (92) 97 05/31/17 10:16 98 Nasal Cannula 2.00 05/31/17 08:15 62 05/31/17 08:00 98 Room Air 05/31/17 08:00 98.4 61 16 163/73 (103) 98 05/31/17 04:00 98.8 63 24 154/66 (95) 94 05/31/17 00:00 98.9 69 22 122/58 (79) 95 05/30/17 20:00 99.9 88 24 132/63 (86) 93 05/30/17 20:00 84 05/30/17 19:30 Room Air 05/30/17 18:01 91 Nasal Cannula 2.00 05/30/17 16:03 98.7 76 18 143/70 (94) 91 I/O 05/30/17 05/30/17 05/30/17 05/31/17 05/31/17 05/31/17 06:59 14:59 22:59 06:59 14:59 22:59 Intake Total 1110 ml 480 ml 460 ml Output Total 0 ml 4500 ml Balance 1110 ml 480 ml 460 ml -4500 ml Intake Oral 960 ml 480 ml 460 ml IV Total 150 ml Output Urine Total 0 ml Hemodialysis 4500 ml # Voids 2 3 # Bowel Movements 0 Result Diagram: 05/30/17 1602 05/30/17 1602 Objective Remarks GENERAL: This is a well-nourished, well-developed patient, in no apparent distress. SKIN: No rashes, warm and dry HEAD: Atraumatic. Normocephalic. EYES: Pupils equal round and reactive. Extraocular motions intact. No scleral icterus. ENT: Nose without bleeding, or drainage, Airway patent. NECK: Trachea midline. Supple CARDIOVASCULAR: Regular rate and rhythm without murmurs, gallops, or rubs. RESPIRATORY: Fair air entry bilaterally. No wheezes, rales, or rhonchi. GASTROINTESTINAL: Abdomen soft, non-tender, nondistended. Positive bowel sounds MUSCULOSKELETAL: Extremities without clubbing, right BKA NEUROLOGICAL: Awake and alert. Normal speech.no focal neurological deficit Procedures 05/28/17 EGD, colonoscopy A/P Problem List: (1) Hyperkalemia ICD Code: E87.5 - Hyperkalemia Status: Resolved (2) ESRD (end stage renal disease) on dialysis ICD Code: N18.6 - End stage renal disease; Z99.2 - Dependence on renal dialysis Status: Chronic (3) Anxiety ICD Code: F41.9 - Anxiety disorder, unspecified Status: Chronic (4) Depression ICD Code: F32.9 - Major depressive disorder, single episode, unspecified Status: Chronic (5) Diabetic retinopathy ICD Code: E11.319 - Type 2 diabetes mellitus with unspecified diabetic retinopathy without macular edema Status: Chronic (6) PAD (peripheral artery disease) ICD Code: I73.9 - Peripheral vascular disease, unspecified Status: Acute Permanent Comment: 10/2015 -Dr. Santillan - PAD - Rt calf/foot - angiogram done. Chronic total occlusion of AT with right AT Ath/[employer] on 09/23/15. Right great toe not healing. Discoloration 4th toe. Dr. Garvey podiatry referral. Ultrasound 3 months for post procedure. If ok then Q6 months us with office visit. Last Edited By: Jude Ron on Oct 20, 2015 15:58 (7) Tobacco abuse ICD Code: Z72.0 - Tobacco use Status: Chronic (8) Hypertension ICD Code: I10 - Essential (primary) hypertension Status: Acute (9) Diabetes ICD Code: E11.9 - Type 2 diabetes mellitus without complications Status: Chronic (10) Abdominal pain, LUQ ICD Code: R10.12 - Left upper quadrant pain (11) Hyponatremia ICD Code: E87.1 - Hypo-osmolality and hyponatremia Assessment and Plan - Left upper quadrant abdominal pain: . Appreciate GI recommendations. EGD/ incomplete colonoscopy >S/P EGD with incomplete colonoscopy (05/28/17)---> Reflux esophagitis, Pangastritis, Incomplete colonoscopy due to poor prep. Pathology - stomach>> REACTIVE / CHEMICAL GASTROPATHY. - SEPARATE FRAGMENTS OF FIBRINOPURULENT EXUDATE, SUGGESTIVE OF NEARBY EROSION / ULCERATION. ESOPHAGUS, DISTAL, BIOPSY: - SQUAMOUS MUCOSA WITH RARE INTRA-EPITHELIAL EOSINOPHILS, CONSISTENT WITH REFLUX. - NEGATIVE FOR INTESTINAL METAPLASIA, DYSPLASIA OR MALIGNANCY. Pain most likely related to acute splenic infarction. - Bacteremia: Enterococcus and Klebsiella, Patient being treated for enterococcus bacteremia with vancomycin 1 g 3 times a week. Antibiotic per ID, follow blood culture, 2-D echo Normal left ventricular size. Mild concentric left ventricular hypertrophy [id number] mitral valve regurgitation. Mild mitral annular calcification. Calcification of both mitral valve leaflets. There is moderate tricuspid regurgitation. and may need MARILU deferred to ID - Hyponatremia with hyperkalemia: Improved followed by nephrology - Diabetes mellitus: Monitor Accu-Cheks and cover with sliding scale insulin. - End-stage renal disease: Hemodialysis per nephrology. - Calciphylaxis: Sodium thiosulfate with hemodialysis. Possible etiology of abdominal pain. - DVT prophylaxis: SCD to left lower extremity. Heparin was avoided secondary to allergy 05/29: Continue to have fever 102.9 overnight, increased WBC, send blood culture , I will consult ID for recurrent unresolved fever, patient on vancomycin 05/30:Sodium and creatinine still pending it was 127/8.42 yesterday, blood glucose 369, Levemir has been stopped I will resume with 7 units twice a day, preprandial 2 units 3 times a day, insulin sliding scale 05/31: Blood sugar much better reading today. Continue on current regimen, awaiting 2-D echo, iv recommending possible need for MARILU, continue iv vancomycin , hemodialysis per nephrology, skin lesion. Calciphylaxis Problem Qualifiers (1) Diabetes: Meeta Juárez MD May 31, 2017 15:44
[2017-05-31 16:09] LABS: BICARBONATE 28.2 MEQ/L (21.0-32.0); POTASSIUM 4.3 MEQ/L (3.5-5.1)
[2017-05-31] MEDS: CEFEPIME INJ 2,000 MG in SODIUM CHLORIDE 0.9% INJ 100 ML IV SCH (17:00)
--- NOTE | 2017-05-31 18:19 | ECHRPT ---
Indication: EVAL FOR ENDOCARDITIS CONCLUSIONS Normal left ventricular size. Mild concentric left ventricular hypertrophy [id number] mitral valve regurgitation. Mild mitral annular calcification. Calcification of both mitral valve leaflets. There is moderate tricuspid regurgitation. BP: 156 / 63 HR: Rhythm: Sinus MEASUREMENTS (Male / Female) Normal Values Technical Quality:Fair 2D ECHO LV Diastolic Diameter PLAX 4.9 cm 4.2 - 5.9 / 3.9 - 5.3 cm LV Systolic Diameter PLAX 3.5 cm IVS Diastolic Thickness 1.1 cm 0.6 - 1.0 / 0.6 - 0.9 cm LVPW Diastolic Thickness 1.1 cm 0.6 - 1.0 / 0.6 - 0.9 cm LV Relative Wall Thickness 0.4 LVOT Diameter 2.2 cm Aortic Root Diameter 3.1 cm LA Systolic Diameter LX 4.5 cm 3.0 - 4.0 / 2.7 - 3.8 cm DOPPLER AV Peak Velocity 152.0 cm/s AV Peak Gradient 9.2 mmHg AV Mean Gradient 4.0 mmHg AV Velocity Time Integral 28.5 cm LVOT Peak Velocity 94.0 cm/s LVOT Peak Gradient 3.5 mmHg LVOT Velocity Time Integral 20.9 cm AV Area Cont Eq vti 2.8 cm AV Area Cont Eq pk 2.4 cm Mitral E Point Velocity 151.0 cm/s Mitral A Point Velocity 69.8 cm/s Mitral E to A Ratio 2.2 LV E' Lateral Velocity 9.1 cm/s Mitral E to LV E' Lateral Ratio 16.6 LV E' Septal Velocity 7.3 cm/s Mitral E to LV E' Septal Ratio 20.7 TR Peak Velocity 255.7 cm/s TR Peak Gradient 26.1 mmHg Right Atrial Pressure 10.0 mmHg Pulmonary Artery Systolic Pressu 36.1 mmHg Right Ventricular Systolic Press 36.1 mmHg PV Peak Velocity 72.2 cm/s PV Peak Gradient 2.1 mmHg FINDINGS LEFT VENTRICLE Normal left ventricular size. Mild concentric left ventricular hypertrophy. The left ventricular systolic function is normal with an estimated ejection fraction in the range of 60-65%. MITRAL VALVE [id number] mitral valve regurgitation. Mild mitral annular calcification. Calcification of both mitral valve leaflets. TRICUSPID VALVE There is moderate tricuspid regurgitation. Hu Bustamante MD (Electronically Signed) Final Date:31 May 2017 18:17
[2017-05-31] MEDS: VANCOMYCIN INJ 1,000 MG in SODIUM CHLOR 0.9% 250 ML INJ 250 ML IV SCH (18:53)
[2017-05-31] MEDS: traZODone HCL 50 MG TAB PO SCH (21:00)
[2017-06-01] VITALS (9 sets, daily range): BP systolic 119–163; BP diastolic 57–78; PULSE 58–91; RESP 18–24; TEMP 97.4–98; O2SAT 93–99
[2017-06-01] MEDS: ACETAMINOPHEN/HYDROcodone 325 MG/5 MG TAB PO PRN ×3 (03:46→20:01)
[2017-06-01] MEDS: METOCLOPRAMIDE HCL 10 MG/2 ML VIAL IV PUSH SCH ×3 (03:47→20:01)
[2017-06-01] MEDS: INSULIN ASPART SUPPLEMENTAL SCALE SQ SCH ×5 (03:55→20:11)
[2017-06-01] MEDS: CHLORHEXIDINE GLUCONATE 2 % 1 PACK (2 CLOTHS) TOP SCH (03:55)
[2017-06-01] MEDS: DOCUSATE SODIUM 100 MG CAP PO SCH ×2 (09:00→21:17)
[2017-06-01] MEDS: CARVEDILOL 6.25 MG TAB PO SCH ×2 (09:00→21:17)
[2017-06-01] MEDS: DOCUSATE SODIUM 50 MG/SENNA 8.6 MG TAB PO SCH ×2 (09:00→21:17)
[2017-06-01] MEDS: VITAMIN B CMPLX/VITC/FOLIC AC CAP PO SCH (09:11)
[2017-06-01] MEDS: SERTRALINE HCL 100 MG TAB PO SCH (09:11)
[2017-06-01] MEDS: INSULIN ASPART 1,000 UNITS/10 ML VIAL SQ SCH ×3 (09:12→17:26)
[2017-06-01] MEDS: SODIUM CHLORIDE 0.9% FLUSH 10 ML FLUSH IV FLUSH SCH ×2 (09:13→20:01)
[2017-06-01] MEDS: PANTOPRAZOLE SOD 40 MG DELAYED RELEASE TAB PO SCH (09:15)
[2017-06-01] MEDS: CALCIUM ACETATE 667 MG CAP PO SCH ×3 (09:15→17:27)
[2017-06-01] MEDS: CHOLECALCIFEROL (VIT D3) 5000 UNIT CAP PO SCH (09:16)
[2017-06-01] MEDS: INSULIN DETEMIR 100 UNITS/ML VIAL SQ SCH ×2 (09:16→21:17)
[2017-06-01] MEDS: SEVELAMER CARBONATE 800 MG TAB PO SCH ×3 (09:18→17:27)
--- NOTE | 2017-06-01 10:54 | HHI.NPPN ---
Subjective Additional Remarks Patient seen alert, occ. feeling cold, no SOB, has left upper abd. pain off and on with nausea. Review of Systems Gastrointestinal Gastrointestinal: Abdominal Pain Objective Data Data Vital Signs Date Time Temp Pulse Resp B/P (MAP) Pulse Ox O2 Delivery O2 Flow Rate FiO2 06/01/17 08:00 97.6 58 18 132/67 (88) 98 06/01/17 08:00 61 06/01/17 04:54 18 06/01/17 04:00 Room Air 06/01/17 04:00 97.4 91 21 145/69 (94) 93 06/01/17 00:00 97.6 87 24 119/60 (79) 94 06/01/17 00:00 Room Air 05/31/17 21:00 Room Air 05/31/17 20:22 84 05/31/17 20:00 98.3 87 24 153/66 (95) 95 05/31/17 16:00 102.7 104 16 139/91 (107) 96 05/31/17 13:40 97 Room Air 05/31/17 13:30 98.8 69 16 144/67 (92) 97 -: 05/30/17 1602 05/31/17 1505 Microbiology 05/31/17 Aerobic Blood Culture, Received Pending 05/31/17 Anaerobic Blood Culture, Received Pending Physical Exam General Appearance: No Acute Distress, Comfortable Neck Neck Exam: Neck Supple Pulmonary Resp Exam: Clear Bilaterally, Breath Sounds Equal Cardiology CV Exam: Regular, Normal Sinus Rhythm Gastrointestinal/Abdomen GI Exam: Soft, Bowel Sounds Present, Distended Extremeties Extremities Exam: Trace Edema Neurologic Neuro Exam: Alert, Awake, Oriented Psychiatric Psych Exam: Appropriate Responses Assessment/Plan Problem List: (1) ESRD (end stage renal disease) on dialysis ICD Codes: N18.6 - End stage renal disease; Z99.2 - Dependence on renal dialysis Status: Chronic Plan: left side Abd pain is possibly muscular, as aggravated by movement patient not allergic to vancomycin continue HD M,W,F Left ischemic foot Apparently has been on sodium thiosulfate as outpatient for calciphylaxis, has been here also. HD done yesterday, tolerated well. On Vancomycin and Cefepime. (2) Hyperkalemia ICD Codes: E87.5 - Hyperkalemia Status: Resolved Plan: elevated today - HD tomorrow. (3) Hypertension ICD Codes: I10 - Essential (primary) hypertension Status: Acute Plan: stable (4) Diabetes ICD Codes: E11.9 - Type 2 diabetes mellitus without complications Status: Chronic Problem Qualifiers (1) Diabetes: Brian Gaston MD Jun 01, 2017 10:54
--- NOTE | 2017-06-01 12:12 | HHI.PR ---
Subjective Remarks Patient had a fever 102.7 yesterday afternoon, w abd tenderness No chest pain, sodium is 131 today creatinine is 4.99 Objective Vitals Vital Signs Date Time Temp Pulse Resp B/P (MAP) Pulse Ox O2 Delivery O2 Flow Rate FiO2 06/01/17 09:27 99 21 06/01/17 08:00 97.6 58 18 132/67 (88) 98 06/01/17 08:00 61 06/01/17 04:54 18 06/01/17 04:00 Room Air 06/01/17 04:00 97.4 91 21 145/69 (94) 93 06/01/17 00:00 97.6 87 24 119/60 (79) 94 06/01/17 00:00 Room Air 05/31/17 21:00 Room Air 05/31/17 20:22 84 05/31/17 20:00 98.3 87 24 153/66 (95) 95 05/31/17 16:00 102.7 104 16 139/91 (107) 96 05/31/17 13:40 97 Room Air 05/31/17 13:30 98.8 69 16 144/67 (92) 97 I/O 05/31/17 05/31/17 05/31/17 06/01/17 06/01/17 06/01/17 07:00 15:00 23:00 07:00 15:00 23:00 Intake Total 460 ml 720 ml 880 ml Output Total 0 ml 4500 ml 0 ml Balance 460 ml -4500 ml 720 ml 880 ml Intake Oral 460 ml 720 ml 880 ml Output Urine Total 0 ml 0 ml Hemodialysis 4500 ml # Bowel Movements 0 0 Result Diagram: 05/30/17 1602 05/31/17 1505 Objective Remarks GENERAL: This is a well-nourished, well-developed patient, in no apparent distress. SKIN: No rashes, warm and dry HEAD: Atraumatic. Normocephalic. EYES: Pupils equal round and reactive. Extraocular motions intact. No scleral icterus. ENT: Nose without bleeding, or drainage, Airway patent. NECK: Trachea midline. Supple CARDIOVASCULAR: Regular rate and rhythm without murmurs, gallops, or rubs. RESPIRATORY: Fair air entry bilaterally. No wheezes, rales, or rhonchi. GASTROINTESTINAL: Abdomen soft, non-tender, nondistended. Positive bowel sounds MUSCULOSKELETAL: Extremities without clubbing, right BKA NEUROLOGICAL: Awake and alert. Normal speech.no focal neurological deficit Procedures 05/28/17 EGD, colonoscopy A/P Problem List: (1) Hyperkalemia ICD Code: E87.5 - Hyperkalemia Status: Resolved (2) ESRD (end stage renal disease) on dialysis ICD Code: N18.6 - End stage renal disease; Z99.2 - Dependence on renal dialysis Status: Chronic (3) Anxiety ICD Code: F41.9 - Anxiety disorder, unspecified Status: Chronic (4) Depression ICD Code: F32.9 - Major depressive disorder, single episode, unspecified Status: Chronic (5) Diabetic retinopathy ICD Code: E11.319 - Type 2 diabetes mellitus with unspecified diabetic retinopathy without macular edema Status: Chronic (6) PAD (peripheral artery disease) ICD Code: I73.9 - Peripheral vascular disease, unspecified Status: Acute Permanent Comment: 10/2015 -Dr. Santillan - PAD - Rt calf/foot - angiogram done. Chronic total occlusion of AT with right AT Ath/[employer] on 09/23/15. Right great toe not healing. Discoloration 4th toe. Dr. Garvey podiatry referral. Ultrasound 3 months for post procedure. If ok then Q6 months us with office visit. Last Edited By: Jude Ron on Oct 20, 2015 15:58 (7) Tobacco abuse ICD Code: Z72.0 - Tobacco use Status: Chronic (8) Hypertension ICD Code: I10 - Essential (primary) hypertension Status: Acute (9) Diabetes ICD Code: E11.9 - Type 2 diabetes mellitus without complications Status: Chronic (10) Abdominal pain, LUQ ICD Code: R10.12 - Left upper quadrant pain (11) Hyponatremia ICD Code: E87.1 - Hypo-osmolality and hyponatremia Assessment and Plan - Left upper quadrant abdominal pain: . Appreciate GI recommendations. EGD/ incomplete colonoscopy >S/P EGD with incomplete colonoscopy (05/28/17)---> Reflux esophagitis, Pangastritis, Incomplete colonoscopy due to poor prep. Pathology - stomach>> REACTIVE / CHEMICAL GASTROPATHY. - SEPARATE FRAGMENTS OF FIBRINOPURULENT EXUDATE, SUGGESTIVE OF NEARBY EROSION / ULCERATION. ESOPHAGUS, DISTAL, BIOPSY: - SQUAMOUS MUCOSA WITH RARE INTRA-EPITHELIAL EOSINOPHILS, CONSISTENT WITH REFLUX. - NEGATIVE FOR INTESTINAL METAPLASIA, DYSPLASIA OR MALIGNANCY. Pain most likely related to acute splenic infarction. - Bacteremia: Enterococcus and Klebsiella, Patient being treated for enterococcus bacteremia with vancomycin 1 g 3 times a week. Antibiotic per ID, follow blood culture, 2-D echo Normal left ventricular size. Mild concentric left ventricular hypertrophy Gfug-wl-[id number] mitral valve regurgitation. Mild mitral annular calcification. Calcification of both mitral valve leaflets. There is moderate tricuspid regurgitation. and may need MARILU deferred to ID - Hyponatremia with hyperkalemia: Improved followed by nephrology - Diabetes mellitus: Monitor Accu-Cheks and cover with sliding scale insulin. - End-stage renal disease: Hemodialysis per nephrology. - Calciphylaxis: Sodium thiosulfate with hemodialysis. Possible etiology of abdominal pain. - DVT prophylaxis: SCD to left lower extremity. Heparin was avoided secondary to allergy 05/29: Continue to have fever 102.9 overnight, increased WBC, send blood culture , I will consult ID for recurrent unresolved fever, patient on vancomycin 05/30:Sodium and creatinine still pending it was 127/8.42 yesterday, blood glucose 369, Levemir has been stopped I will resume with 7 units twice a day, preprandial 2 units 3 times a day, insulin sliding scale 05/31: Blood sugar much better reading today. Continue on current regimen, awaiting 2-D echo, iv recommending possible need for MARILU, continue iv vancomycin , hemodialysis per nephrology, skin lesion. Calciphylaxis 06/01: Spiked fever 102.7, sent for blood culture, ID following, 2-D echo as mentioned above, MARILU deferred for ID, continue antibiotic, hemodialysis per nephrology Sodium is at 131 today creatinine 4.99 Problem Qualifiers (1) Diabetes: Meeta Juárez MD Jun 01, 2017 12:12
[2017-06-01] MEDS: GABAPENTIN 300 MG CAP PO SCH (12:57)
--- NOTE | 2017-06-01 13:23 | HHI.IDPN ---
Subjective Subjective Remarks Patient is a 46-year-old female, with end-stage renal disease, gets hemodialysis Saturday and Saturday using her right upper extremity AV fistula, Pers[place] to the hospital complaining of 6 day history of abdominal pain specifically in the left upper quadrant. It improved a little bit with Lortab, but she started having some nausea and vomiting. She presented to the hospital, and imaging studies showed evidence of splenic infarct. Of note is the patient has been on IV antibiotic with her hemodialysis for enterococcal bacteremia. She is not clear as to what kind of workup was done and not clear as to where the infection came from. Patient has an AV fistula and it had some problem and she underwent looks like vascular work to open up her AV fistula couple months ago. Patient currently still complains of pain in the left upper quadrant. She has not had any further vomiting. Patient has no urine output since she's been on dialysis in the last 6-7 years. She denies any respiratory complaint. Denies any diarrhea. There is also history of IV drug use, but she stated that she hasn't used it in the last 6 months. 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 Patient received IV vancomycin on May 24, and has not received any IV antibiotics. In the last 2 days patient has been running fevers. Infectious disease consultation has been requested to evaluate the patient with fevers Notes reviewed Had fevers last night Still C/O pain L side No N/V No diarrhea Does not make urine Patient questioned again -last time she used IV drugs was fist of April No new (+) BC US shows AVF ok BC with Klebsiella oxytoca Echo with calcifications MV, mild to mod MR, mod TR Antibiotics I attest that I obtained, updated or reviewed the home and current medications. Vancomycin Cefepime Current Medications Medications (Trade) Dose Ordered Sig/Jen Route Start Time Stop Time Status Last Admin Albumin Human 100 ml @ 60 mls/hr UNSCH PRN IV 05/22/17 21:15 ([place] 5-325 Mg) 1 tab Q6H PRN PO 05/22/17 21:30 05/23/17 08:49 ([place] 5-325 Mg) 2 tab Q6H PRN PO 05/22/17 21:30 06/01/17 11:04 (NS Flush) 2 ml UNSCH PRN IV FLUSH 05/23/17 01:00 (NS Flush) 2 ml BID IV FLUSH 05/23/17 09:00 06/01/17 09:13 (Protonix) 40 mg DAILY PO 05/23/17 09:00 06/01/17 09:15 Miscellaneous Information 1 Q361D XX 05/23/17 01:00 (Chlorhexidine 2% Cloth) Taper DAILY@04 TOP 05/23/17 04:00 05/19/18 03:59 05/28/17 04:18 (Chlorhexidine 2% Cloth) 3 pack UNSCH PRN TOP 05/23/17 01:00 (Areli-Colace) 1 tab BID PO 05/23/17 09:00 05/26/17 08:34 (Milk Of Magnesia Liq) 30 ml Q12H PRN PO 05/23/17 01:00 (Senokot) 17.2 mg Q12H PRN PO 05/23/17 01:00 (Dulcolax Supp) 10 mg DAILY PRN RECTAL 05/23/17 01:00 (Lactulose Liq) 30 ml DAILY PRN PO 05/23/17 01:00 Sodium Chloride 1,000 ml @ 0 mls/hr Q0M PRN OTHER 05/23/17 01:15 05/23/17 01:23 (Heparin Inj) 8,000 units UNSCH PRN IV FLUSH 05/23/17 01:15 Sodium Chloride 1,000 ml @ 200 mls/hr Q5H PRN IV 05/23/17 01:15 Sodium Chloride 1,000 ml @ 0 mls/hr Q0M PRN OTHER 05/23/17 01:15 (Mannitol Inj) 12.5 gm UNSCH PRN IV 05/23/17 01:15 (NS Flush) 5 ml UNSCH PRN IV FLUSH 05/23/17 01:15 (Heparin Inj) UNSCH PRN .XX 05/23/17 01:15 (Gentamicin (Dialysis) Inj) 20 mg UNSCH PRN OTHER 05/23/17 01:15 (Zofran Inj) 4 mg UNSCH PRN IV PUSH 05/23/17 01:15 (Tylenol) 650 mg UNSCH PRN PO 05/23/17 01:15 05/31/17 17:00 (Benadryl) 25 mg UNSCH PRN PO 05/23/17 01:15 05/29/17 21:23 (Nitrostat Sl) 0.4 mg UNSCH PRN SL 05/23/17 01:15 (Catapres) 0.1 mg UNSCH PRN PO 05/23/17 01:15 (Gelfoam 12 Mm/7 Mm Top) 1 foam UNSCH PRN TOP 05/23/17 01:15 05/29/17 14:39 (Coreg) 6.25 mg BID PO 05/23/17 09:00 05/31/17 20:49 (Vitamin D3) 5,000 units DAILY PO 05/23/17 09:00 06/01/17 09:16 (Plavix) 75 mg DAILY PO 05/23/17 09:00 Future Hold 05/26/17 08:34 (Colace) 100 mg BID PO 05/23/17 09:00 05/26/17 08:34 (Zoloft) 100 mg DAILY PO 05/23/17 09:00 06/01/17 09:11 (Renvela) 3,200 mg TID PO 05/23/17 09:00 06/01/17 12:57 (Desyrel) 50 mg HS PO 05/23/17 21:00 05/31/17 21:00 (Nephrocaps) 1 cap DAILY PO 05/23/17 09:00 06/01/17 09:11 (Reglan Inj) 5 mg Q8H IV PUSH 05/23/17 12:00 06/01/17 12:58 (Neurontin) 300 mg Q24H PO 05/25/17 13:00 06/01/17 12:57 (Phoslo) 1,334 mg TID PO 05/25/17 18:00 06/01/17 12:57 Sodium Thiosulfate 99170 mg/Sterile Water 150 ml @ 150 mls/hr WITH DIALYSIS PRN IV 05/25/17 14:15 05/31/17 12:39 (D50w (Vial) Inj) 50 ml UNSCH PRN IV PUSH 05/25/17 15:30 05/28/17 08:53 (Glucagon Inj) 1 mg UNSCH PRN OTHER 05/25/17 15:30 (Epogen Inj) 10,000 units UNSCH PRN IV PUSH 05/29/17 13:15 Vancomycin HCl 1000 mg/Sodium Chloride 250 ml @ 250 mls/hr MoWeFr IV 05/29/17 18:00 05/31/17 18:53 (Levemir Inj) 7 units Q12HR SQ 05/30/17 12:15 06/01/17 09:16 (NovoLOG INJ) 2 units TIDAC SQ 05/30/17 12:00 06/01/17 12:59 Cefepime HCl 2000 mg/Sodium Chloride 100 ml @ 200 mls/hr Q24H IV 05/30/17 17:00 05/31/17 17:00 (NovoLOG SUPPLEMENTAL SCALE) 1 Q4HR SQ 05/30/17 20:00 06/01/17 13:00 Lines PIV Past Medical History ESRD - she states she started HD 5-6 years ago due to diabetic/hypertensive nephropathy and vancomycin exposure. (Dr. 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 Past Surgical History Cholecystectomy Right upper extremity fistula Right nephrectomy due to ovarian cyst Dental extractions Tonsillectomy RBKA Allergies: Coded Allergies: codeine (Unverified Allergy, Severe, HYPERACTIVITY &ITCH, 05/22/17) iodine (Unverified Allergy, Severe, TOPICAL/ITCH, 05/22/17) potassium iodide (Unverified Allergy, Severe, TOPICAL/ITCH, 05/22/17) povidone-iodine (Unverified Allergy, Severe, TOPICAL/ITCH, 05/22/17) sodium iodide (Unverified Allergy, Severe, TOPICAL/ITCH, 05/22/17) sodium iodide (Unverified Allergy, Severe, TOPICAL/ITCH, 05/22/17) iohexol (Unverified Allergy, Intermediate, HIVES, 05/22/17) Pork/Porcine Containing Products (Unverified Allergy, Unknown, 05/22/17) penicillin G (Unverified Allergy, Unknown, 05/22/17) Objective . Vital Signs Date Time Temp Pulse Resp B/P (MAP) Pulse Ox O2 Delivery O2 Flow Rate FiO2 06/01/17 12:00 98.0 71 18 124/57 (79) 96 06/01/17 09:27 99 21 06/01/17 08:00 97.6 58 18 132/67 (88) 98 06/01/17 08:00 61 06/01/17 04:54 18 06/01/17 04:00 Room Air 06/01/17 04:00 97.4 91 21 145/69 (94) 93 06/01/17 00:00 97.6 87 24 119/60 (79) 94 06/01/17 00:00 Room Air 05/31/17 21:00 Room Air 05/31/17 20:22 84 05/31/17 20:00 98.3 87 24 153/66 (95) 95 05/31/17 16:00 102.7 104 16 139/91 (107) 96 05/31/17 13:40 97 Room Air 05/31/17 13:30 98.8 69 16 144/67 (92) 97 . Laboratory Tests Test 05/30/17 16:02 White Blood Count 4.8 TH/MM3 Red Blood Count 3.87 MIL/MM3 Hemoglobin 12.1 GM/DL Hematocrit 36.8 % Mean Corpuscular Volume 95.2 FL Mean Corpuscular Hemoglobin 31.3 PG Mean Corpuscular Hemoglobin Concent 32.9 % Red Cell Distribution Width 16.1 % Platelet Count 245 TH/MM3 Mean Platelet Volume 8.1 FL Neutrophils (%) (Auto) 82.5 % Lymphocytes (%) (Auto) 13.0 % Monocytes (%) (Auto) 0.5 % Eosinophils (%) (Auto) 3.7 % Basophils (%) (Auto) 0.3 % Neutrophils # (Auto) 4.0 TH/MM3 Lymphocytes # (Auto) 0.6 TH/MM3 Monocytes # (Auto) 0.0 TH/MM3 Eosinophils # (Auto) 0.2 TH/MM3 Basophils # (Auto) 0.0 TH/MM3 CBC Comment DIFF FINAL Differential Comment Laboratory Tests Test 05/30/17 16:02 05/31/17 15:05 Blood Urea Nitrogen 43 MG/DL 30 MG/DL Creatinine 6.90 MG/DL 4.99 MG/DL Random Glucose 124 MG/DL 210 MG/DL Calcium Level 9.1 MG/DL 9.1 MG/DL Sodium Level 129 MEQ/L 131 MEQ/L Potassium Level 5.3 MEQ/L 4.3 MEQ/L Chloride Level 92 MEQ/L 93 MEQ/L Carbon Dioxide Level 26.5 MEQ/L 28.2 MEQ/L Anion Gap 11 MEQ/L 10 MEQ/L Estimat Glomerular Filtration Rate 6 ML/MIN 9 ML/MIN Microbiology Date/Time Source Procedure Growth Status 05/31/17 19:39 Blood Peripheral Aerobic Blood Culture - Preliminary NO GROWTH IN 1 DAY Resulted 05/31/17 19:39 Blood Peripheral Anaerobic Blood Culture - Preliminary NO GROWTH IN 1 DAY Resulted 05/31/17 07:15 Blood Other Aerobic Blood Culture - Preliminary NO GROWTH IN 1 DAY Resulted 05/31/17 07:15 Blood Other Anaerobic Blood Culture - Preliminary NO GROWTH IN 1 DAY Resulted 05/31/17 07:10 Blood Other Aerobic Blood Culture - Preliminary NO GROWTH IN 1 DAY Resulted 05/31/17 07:10 Blood Other Anaerobic Blood Culture - Preliminary NO GROWTH IN 1 DAY Resulted 05/30/17 08:55 Blood Peripheral Aerobic Blood Culture - Preliminary NO GROWTH IN 2 DAYS Resulted 05/30/17 08:55 Blood Peripheral Anaerobic Blood Culture - Preliminary NO GROWTH IN 2 DAYS Resulted 05/29/17 21:41 Blood Peripheral Aerobic Blood Culture - Final Klebsiella Oxytoca Complete 05/29/17 21:41 Anaerobic Blood Culture - Final Klebsiella Oxytoca Complete 05/29/17 21:34 Blood Peripheral Aerobic Blood Culture - Final Klebsiella Oxytoca Complete 05/29/17 21:34 Anaerobic Blood Culture - Final Klebsiella Oxytoca Complete Imaging Last Impressions Upper Extremity Ultrasound 05/29/17 0000 Signed Impressions: Service Date/Time: Monday, May 29, 2017 20:25 - CONCLUSION: 1. Patent fistula Rhys Barker MD Chest X-Ray 05/29/17 0000 Signed Impressions: Service Date/Time: Monday, May 29, 2017 20:58 - CONCLUSION: Hypoaeration. Yo Romero MD Abdomen/Pelvis CT 05/25/17 0000 Signed Impressions: Service Date/Time: Friday, May 26, 2017 13:17 - CONCLUSION: 1. Findings characteristic of acute splenic infarction. There is heavy calcification of the splenic artery though the celiac and superior mesenteric arteries are patent. 2. Hypodense liver compatible with fatty infiltration or hepatocellular disease. 3. Diverticulosis without evidence of diverticulitis. 4. Probable left adrenal adenoma Rhys Barker MD Physical Exam GENERAL: awake and alert, not in respiratory distress. SKIN: Warm and dry. Has superficial round ulcers on face and some in her UE HEAD: Atraumatic. Normocephalic. No temporal wasting, or tenderness. EYES: [place] conjunctiva. No petechia or hemorrhage. Pupils equal, round and reactive to light. Extraocular movements full and intact. No scleral icterus. No injection or drainage. EARS, NOSE AND THROAT: Nose without bleeding or purulent nasal discharge. No sinus tenderness. Mucous membranes pink and moist. No oral lesions noted. No exudate. NECK: Trachea midline. Supple and not tender, no meningeal signs CARDIOVASCULAR: Regular rate and rhythm. No murmurs, rubs or gallops heard RESPIRATORY: Clear to auscultation. Breath sounds equal bilaterally. No rales , wheezing or rhonchi ABDOMEN: Soft, nondistended, tender in LUQ. Bowel sounds present and normoactive. No guarding. No rebound. No organomegaly. EXTREMITIES: No clubbing, cyanosis, or edema. No calf tenderness. Well perfused and warm. RUE AVF with no evidence of infection. S/P RBKA, well healed stump NEUROLOGICAL: Awake and alert. Cranial nerves grossly intact. Motor grossly within normal limits. PSYCHIATRIC: Normal affect, calm and cooperative. LINE: No evidence of infection Assessment & Plan Remarks IMPRESSION Enterococcal bacteremia being treated in HD center, source? - suspicious for endovascular focus, ?possible etiology of splenic infarct - prior Hx IVDU, claims last use was 6 months ago Klebsiella bacteremia, source Very suspicious of endocarditis, has calcified MV, mod TR and MR, known IVDU ESRD on HD Skin lesions due to calciphylaxis RECOMMENDATION Consult cardiology for MARILU Continue Cefepime Continue IV Vancomycin Follow C/S Monitor temps May need repeat CT if with continued fevers, to eval persisent pain Explained plan to the patient Carrie Sanchez MD Jun 01, 2017 13:23
--- NOTE | 2017-06-01 15:27 | MB ---
cc: ABEL BROOKS MD DATE OF CONSULTATION: 06/01/2017. REASON FOR CONSULTATION: For transesophageal echocardiogram. HISTORY OF PRESENT ILLNESS: The patient is a pleasant 47-year-old woman with morbid obesity, end-stage renal disease, hyperkalemia, hyponatremia, history of hepatitis C, IVDU as recent as April of this year who presented with a potassium 7.3 after missing several dialysis sessions. Her blood cultures have been positive and she was found to have an acute splenic infarction, and I was consulted for a transesophageal echocardiogram given the possibility / likelihood of endocarditis. The patient denies any acute cardiac symptoms but does admit to having intermittent to vague chest discomfort, which she describes as though there is something in her heart but again very vague and was not part of her current presentation. She denies any active chest pain, shortness of breath, lightheadedness or dizziness. PAST MEDICAL HISTORY: As above. CURRENT MEDICATIONS: 1. Insulin. 2. IV Vancomycin. 3. PhosLo. 4. Gabapentin. 5. Trazodone. 6. Reglan. 7. Coreg 6.25 milligrams twice a day. 8. Zoloft. 9. Renvela. ALLERGIES: MANY, PLEASE SEE THE CHART. PHYSICAL EXAMINATION: VITAL SIGNS: Afebrile, pulse 71, respiratory rate 18, blood pressure 124/57, satting 96 on room air. GENERAL: In general, a pleasant obese woman in no distress. NECK: No jugular venous distention. LUNGS: Clear to auscultation. CARDIOVASCULAR: Regular rate and rhythm. No significant murmurs appreciated. ABDOMEN: Benign. EXTREMITIES: Status post right below-knee amputation. No edema in the left extremity. LABORATORY DATA: White count 4.8 down from 13.2, hematocrit 36.8, platelets 245,000. Sodium 131, potassium 4.3, chloride 93, bicarbonate 28, BUN 30, creatinine 4.99. Blood cultures positive for Klebsiella. EKGS: EKG shows sinus rhythm with nonspecific S-T changes. IMPRESSION: 1. Possible embolic source. The patient with splenic infarct and bacteremia certainly may have endocarditis and a transesophageal echocardiogram is reasonable. I will perform this tomorrow and have the patient NPO after midnight. 2. Atypical chest pain. The patient has a history (though not part of this presentation) of atypical chest pain given multiple issues going on now, I do not believe an ischemic workup is appropriate, though I will obtain troponins and if negative, this could be worked up as an outpatient. Further recommendations will be based on her clinical course. Thank you again for the opportunity to participate in this patient's care. MD PHILIP Acevedo/OLGA /2:43 PM /3:10 PM
[2017-06-01 16:58] LABS: CREATINE KINASE 11 U/L (26-192)
[2017-06-01] MEDS: CEFEPIME INJ 2,000 MG in SODIUM CHLORIDE 0.9% INJ 100 ML IV SCH (17:26)
[2017-06-01] MEDS: cloNIDine HCL 0.1 MG TAB PO PRN (21:16)
[2017-06-01] MEDS: traZODone HCL 50 MG TAB PO SCH (21:17)
[2017-06-01 23:44] LABS: CREATINE KINASE 22 U/L (26-192)
[2017-06-02] VITALS (34 sets, daily range): BP systolic 133–166; BP diastolic 65–79; PULSE 53–80; RESP 12–22; TEMP 97.6–99; O2SAT 92–99
[2017-06-02] MEDS: METOCLOPRAMIDE HCL 10 MG/2 ML VIAL IV PUSH SCH ×3 (04:00→22:37)
[2017-06-02] MEDS: CHLORHEXIDINE GLUCONATE 2 % 1 PACK (2 CLOTHS) TOP SCH (04:00)
[2017-06-02] MEDS: INSULIN ASPART SUPPLEMENTAL SCALE SQ SCH ×6 (04:00→22:46)
[2017-06-02 04:28] LABS: CREATINE KINASE 69 U/L (26-192)
[2017-06-02] MEDS: SODIUM CHLORIDE 0.9% FLUSH 10 ML FLUSH IV FLUSH SCH ×2 (09:00→22:39)
[2017-06-02] MEDS: DOCUSATE SODIUM 50 MG/SENNA 8.6 MG TAB PO SCH ×2 (09:00→21:00)
[2017-06-02] MEDS: DOCUSATE SODIUM 100 MG CAP PO SCH ×2 (09:00→21:00)
--- NOTE | 2017-06-02 09:27 | PD.CARD.PN ---
Subjective Subjective Remarks No cardiac complaints, did well during MARILU (which didn't show any evidence of endocarditis) Objective Medications Current Medications Medications (Trade) Dose Ordered Sig/Jen Route Start Time Stop Time Status Last Admin Albumin Human 100 ml @ 60 mls/hr UNSCH PRN IV 05/22/17 21:15 ([place] 5-325 Mg) 1 tab Q6H PRN PO 05/22/17 21:30 05/23/17 08:49 ([place] 5-325 Mg) 2 tab Q6H PRN PO 05/22/17 21:30 06/01/17 20:01 (NS Flush) 2 ml UNSCH PRN IV FLUSH 05/23/17 01:00 (NS Flush) 2 ml BID IV FLUSH 05/23/17 09:00 06/01/17 20:01 (Protonix) 40 mg DAILY PO 05/23/17 09:00 06/01/17 09:15 Miscellaneous Information 1 Q361D XX 05/23/17 01:00 (Chlorhexidine 2% Cloth) Taper DAILY@04 TOP 05/23/17 04:00 05/19/18 03:59 05/28/17 04:18 (Chlorhexidine 2% Cloth) 3 pack UNSCH PRN TOP 05/23/17 01:00 (Areli-Colace) 1 tab BID PO 05/23/17 09:00 06/01/17 21:17 (Milk Of Magnesia Liq) 30 ml Q12H PRN PO 05/23/17 01:00 (Senokot) 17.2 mg Q12H PRN PO 05/23/17 01:00 (Dulcolax Supp) 10 mg DAILY PRN RECTAL 05/23/17 01:00 (Lactulose Liq) 30 ml DAILY PRN PO 05/23/17 01:00 Sodium Chloride 1,000 ml @ 0 mls/hr Q0M PRN OTHER 05/23/17 01:15 05/23/17 01:23 (Heparin Inj) 8,000 units UNSCH PRN IV FLUSH 05/23/17 01:15 Sodium Chloride 1,000 ml @ 200 mls/hr Q5H PRN IV 05/23/17 01:15 Sodium Chloride 1,000 ml @ 0 mls/hr Q0M PRN OTHER 05/23/17 01:15 (Mannitol Inj) 12.5 gm UNSCH PRN IV 05/23/17 01:15 (NS Flush) 5 ml UNSCH PRN IV FLUSH 05/23/17 01:15 (Heparin Inj) UNSCH PRN .XX 05/23/17 01:15 (Gentamicin (Dialysis) Inj) 20 mg UNSCH PRN OTHER 05/23/17 01:15 (Zofran Inj) 4 mg UNSCH PRN IV PUSH 05/23/17 01:15 (Tylenol) 650 mg UNSCH PRN PO 05/23/17 01:15 05/31/17 17:00 (Benadryl) 25 mg UNSCH PRN PO 05/23/17 01:15 05/29/17 21:23 (Nitrostat Sl) 0.4 mg UNSCH PRN SL 05/23/17 01:15 (Catapres) 0.1 mg UNSCH PRN PO 05/23/17 01:15 06/01/17 21:16 (Gelfoam 12 Mm/7 Mm Top) 1 foam UNSCH PRN TOP 05/23/17 01:15 05/29/17 14:39 (Coreg) 6.25 mg BID PO 05/23/17 09:00 06/01/17 21:17 (Vitamin D3) 5,000 units DAILY PO 05/23/17 09:00 06/01/17 09:16 (Plavix) 75 mg DAILY PO 05/23/17 09:00 Future Hold 05/26/17 08:34 (Colace) 100 mg BID PO 05/23/17 09:00 06/01/17 21:17 (Zoloft) 100 mg DAILY PO 05/23/17 09:00 06/01/17 09:11 (Renvela) 3,200 mg TID PO 05/23/17 09:00 06/01/17 17:27 (Desyrel) 50 mg HS PO 05/23/17 21:00 06/01/17 21:17 (Nephrocaps) 1 cap DAILY PO 05/23/17 09:00 06/01/17 09:11 (Reglan Inj) 5 mg Q8H IV PUSH 05/23/17 12:00 06/02/17 04:00 (Neurontin) 300 mg Q24H PO 05/25/17 13:00 06/01/17 12:57 (Phoslo) 1,334 mg TID PO 05/25/17 18:00 06/01/17 17:27 Sodium Thiosulfate 23510 mg/Sterile Water 150 ml @ 150 mls/hr WITH DIALYSIS PRN IV 05/25/17 14:15 05/31/17 12:39 (D50w (Vial) Inj) 50 ml UNSCH PRN IV PUSH 05/25/17 15:30 05/28/17 08:53 (Glucagon Inj) 1 mg UNSCH PRN OTHER 05/25/17 15:30 (Epogen Inj) 10,000 units UNSCH PRN IV PUSH 05/29/17 13:15 Vancomycin HCl 1000 mg/Sodium Chloride 250 ml @ 250 mls/hr MoWeFr IV 05/29/17 18:00 05/31/17 18:53 (Levemir Inj) 7 units Q12HR SQ 05/30/17 12:15 06/01/17 21:17 (NovoLOG INJ) 2 units TIDAC SQ 05/30/17 12:00 06/01/17 17:26 Cefepime HCl 2000 mg/Sodium Chloride 100 ml @ 200 mls/hr Q24H IV 05/30/17 17:00 06/01/17 17:26 (NovoLOG SUPPLEMENTAL SCALE) 1 Q4HR SQ 05/30/17 20:00 06/01/17 20:11 Vital Signs / I&O Vital Signs Date Time Temp Pulse Resp B/P (MAP) Pulse Ox O2 Delivery O2 Flow Rate FiO2 06/02/17 08:42 97.9 61 17 166/78 (107) 94 06/02/17 07:17 54 06/02/17 06:00 55 06/02/17 05:00 53 06/02/17 04:00 62 06/02/17 04:00 98.3 62 18 161/79 (106) 98 06/02/17 03:00 56 06/02/17 02:00 67 06/02/17 01:00 80 06/02/17 00:00 Room Air 06/02/17 00:00 97.6 67 22 160/70 (100) 98 06/02/17 00:00 67 06/01/17 23:00 74 06/01/17 22:00 80 06/01/17 21:00 67 06/01/17 21:00 97.6 67 22 163/78 (106) 99 06/01/17 21:00 Room Air 06/01/17 16:00 97.7 61 18 126/59 (81) 95 06/01/17 16:00 Room Air 06/01/17 12:00 Nasal Cannula 2.00 06/01/17 12:00 98.0 71 18 124/57 (79) 96 06/01/17 09:27 99 21 I/O 06/01/17 06/01/17 06/01/17 06/02/17 06/02/17 06/02/17 07:00 15:00 23:00 07:00 15:00 23:00 Intake Total 880 ml 580 ml 480 ml Output Total 0 ml 0 ml Balance 880 ml 580 ml 480 ml Intake Oral 880 ml 480 ml 480 ml IV Total 100 ml Output Urine Total 0 ml 0 ml # Bowel Movements 0 1 1 Physical Exam GENERAL: This is a well-nourished, well-developed patient, in no apparent distress. CARDIOVASCULAR: Regular rate and rhythm without murmurs, gallops, or rubs. RESPIRATORY: Clear to auscultation. Breath sounds equal bilaterally. No wheezes , rales, or rhonchi. GASTROINTESTINAL: Abdomen soft, non-tender, nondistended. Normal active bowel sounds MUSCULOSKELETAL: s/p R bka NEURO: Alert & Oriented x4 to person, place, time, situation. Moves all ext x4 Laboratory Laboratory Tests Test 06/01/17 16:12 06/01/17 22:42 06/02/17 03:00 Total Creatine Kinase 11 U/L 22 U/L 69 U/L Troponin I LESS THAN 0.02 NG/ML LESS THAN 0.02 NG/ML LESS THAN 0.02 NG/ML Imaging Last Impressions Upper Extremity Ultrasound 05/29/17 0000 Signed Impressions: Service Date/Time: Monday, May 29, 2017 20:25 - CONCLUSION: 1. Patent fistula Rhys Barker MD Chest X-Ray 05/29/17 0000 Signed Impressions: Service Date/Time: Monday, May 29, 2017 20:58 - CONCLUSION: Hypoaeration. Yo Romero MD Abdomen/Pelvis CT 05/25/17 0000 Signed Impressions: Service Date/Time: Friday, May 26, 2017 13:17 - CONCLUSION: 1. Findings characteristic of acute splenic infarction. There is heavy calcification of the splenic artery though the celiac and superior mesenteric arteries are patent. 2. Hypodense liver compatible with fatty infiltration or hepatocellular disease. 3. Diverticulosis without evidence of diverticulitis. 4. Probable left adrenal adenoma Rhys Barker MD Assessment and Plan Problem List: (1) Bacteremia ICD Codes: R78.81 - Bacteremia Plan: No evidence of endocarditis by MARILU (2) Splenic infarct ICD Codes: D73.5 - Infarction of spleen Plan: No source of intra-cardiac embolism seen by MARILU Assessment and Plan will sign off at this time (full MARILU report will follow), please call with questions. Rubio Diaz MD Jun 02, 2017 09:27
[2017-06-02] MEDS: CHOLECALCIFEROL (VIT D3) 5000 UNIT CAP PO SCH (10:04)
[2017-06-02] MEDS: CALCIUM ACETATE 667 MG CAP PO SCH ×3 (10:05→17:19)
[2017-06-02] MEDS: SERTRALINE HCL 100 MG TAB PO SCH (10:06)
[2017-06-02] MEDS: PANTOPRAZOLE SOD 40 MG DELAYED RELEASE TAB PO SCH (10:06)
[2017-06-02] MEDS: SEVELAMER CARBONATE 800 MG TAB PO SCH ×3 (10:06→17:19)
[2017-06-02] MEDS: CARVEDILOL 6.25 MG TAB PO SCH ×2 (10:06→22:38)
[2017-06-02] MEDS: VITAMIN B CMPLX/VITC/FOLIC AC CAP PO SCH (10:06)
[2017-06-02] MEDS: INSULIN ASPART 1,000 UNITS/10 ML VIAL SQ SCH ×3 (10:07→17:00)
[2017-06-02] MEDS: INSULIN DETEMIR 100 UNITS/ML VIAL SQ SCH ×2 (10:07→22:40)
[2017-06-02] MEDS: ACETAMINOPHEN/HYDROcodone 325 MG/5 MG TAB PO PRN ×3 (10:16→22:38)
[2017-06-02] MEDS: GABAPENTIN 300 MG CAP PO SCH (12:28)
--- NOTE | 2017-06-02 15:25 | HHI.NPPN ---
Subjective Additional Remarks Patient seen alert, occ. feeling better, no SOB, no chest pain. Review of Systems Gastrointestinal Gastrointestinal: Abdominal Pain Objective Data Data Vital Signs Date Time Temp Pulse Resp B/P (MAP) Pulse Ox O2 Delivery O2 Flow Rate FiO2 06/02/17 15:00 55 06/02/17 14:00 60 06/02/17 13:00 64 06/02/17 12:00 64 06/02/17 12:00 99.0 62 18 158/77 (104) 94 06/02/17 11:00 73 06/02/17 10:00 56 06/02/17 09:45 57 16 137/65 (89) 98 06/02/17 09:35 55 16 143/70 (94) 92 Manual Cuff/Auscultation 06/02/17 09:30 60 16 133/69 (90) 92 Manual Cuff/Auscultation 06/02/17 09:27 58 14 138/69 (92) 92 Manual Cuff/Auscultation 06/02/17 09:24 98.8 61 12 137/78 (97) 94 Manual Cuff/Auscultation 06/02/17 09:00 62 06/02/17 08:42 97.9 61 17 166/78 (107) 94 06/02/17 08:00 Nasal Cannula 2.00 06/02/17 08:00 54 06/02/17 07:17 54 06/02/17 06:00 55 06/02/17 05:00 53 06/02/17 04:00 62 06/02/17 04:00 98.3 62 18 161/79 (106) 98 06/02/17 03:00 56 06/02/17 02:00 67 06/02/17 01:00 80 06/02/17 00:00 Room Air 06/02/17 00:00 97.6 67 22 160/70 (100) 98 06/02/17 00:00 67 06/01/17 23:00 74 06/01/17 22:00 80 06/01/17 21:00 67 06/01/17 21:00 97.6 67 22 163/78 (106) 99 06/01/17 21:00 Room Air 06/01/17 16:00 97.7 61 18 126/59 (81) 95 06/01/17 16:00 Room Air -: 05/30/17 1602 05/31/17 1505 Physical Exam General Appearance: No Acute Distress, Comfortable Neck Neck Exam: Neck Supple Pulmonary Resp Exam: Clear Bilaterally, Breath Sounds Equal Cardiology CV Exam: Regular, Normal Sinus Rhythm Gastrointestinal/Abdomen GI Exam: Soft, Bowel Sounds Present, Distended Extremeties Extremities Exam: Trace Edema Neurologic Neuro Exam: Alert, Awake, Oriented Psychiatric Psych Exam: Appropriate Responses Assessment/Plan Problem List: (1) ESRD (end stage renal disease) on dialysis ICD Codes: N18.6 - End stage renal disease; Z99.2 - Dependence on renal dialysis Status: Chronic Plan: left side Abd pain is possibly muscular, as aggravated by movement patient not allergic to vancomycin continue HD M,W,F Left ischemic foot Apparently has been on sodium thiosulfate as outpatient for calciphylaxis, has been here also. HD done on Saturday,tolerated well. On Vancomycin and Cefepime. Continue HD in AM. (2) Hyperkalemia ICD Codes: E87.5 - Hyperkalemia Status: Resolved Plan: elevated today - HD tomorrow. (3) Hypertension ICD Codes: I10 - Essential (primary) hypertension Status: Acute Plan: stable (4) Diabetes ICD Codes: E11.9 - Type 2 diabetes mellitus without complications Status: Chronic Problem Qualifiers (1) Diabetes: Brian Gaston MD Jun 02, 2017 15:25
--- NOTE | 2017-06-02 15:33 | ECHRPT ---
Indication: ENDOCARDITIS CONCLUSIONS Normal LVEF No evidence of endocarditis BP: / HR: Rhythm: MEASUREMENTS (Male / Female) Normal Values Technical Quality: DOPPLER TR Peak Velocity 239.0 cm/s TR Peak Gradient 22.8 mmHg Medications Complications Proc. Components FINDINGS LEFT VENTRICLE The left ventricular systolic function is normal with an estimated ejection fraction in the range of 55-60%. ATRIAL APPENDAGES Normal left atrial appendage size with no evidence of thrombus formation. The velocities in the left atrial appendage are normal. ATRIAL SEPTUM No atrial level shunt is demonstrated by color flow Doppler or agitated saline imaging. MITRAL VALVE [id number] mitral valve regurgitation. Mild thickening of the mitral valve leaflets. Calcification of both mitral valve leaflets. AORTIC VALVE Trileaflet aortic valve. No aortic valve stenosis or regurgitation. TRICUSPID VALVE There is mild to moderate tricuspid valve regurgitation. VESSELS The pulmonary valve is not well visualized. Rubio Diaz MD (Electronically Signed) Final Date:02 June 2017 15:32
[2017-06-02] MEDS ORDERED: NOVOLOGSS SQ (15:41)
[2017-06-02] MEDS ORDERED: NOVOLOGP2 SQ (15:41)
[2017-06-02] MEDS ORDERED: LEVEMIR SQ (15:41)
--- NOTE | 2017-06-02 16:03 | HHI.PR ---
Subjective Remarks Patient wants to go home She had her MARILU today which came back negative for vegetation Awaiting clearance from ID with further guidance for antibiotic if needed prior to discharge Seen by nephrology as well Patient have minimal abdominal pain, no fever overnight Objective Vitals Vital Signs Date Time Temp Pulse Resp B/P (MAP) Pulse Ox O2 Delivery O2 Flow Rate FiO2 06/02/17 15:00 55 06/02/17 14:00 60 06/02/17 13:00 64 06/02/17 12:00 64 06/02/17 12:00 99.0 62 18 158/77 (104) 94 06/02/17 11:00 73 06/02/17 10:00 56 06/02/17 09:45 57 16 137/65 (89) 98 06/02/17 09:35 55 16 143/70 (94) 92 Manual Cuff/Auscultation 06/02/17 09:30 60 16 133/69 (90) 92 Manual Cuff/Auscultation 06/02/17 09:27 58 14 138/69 (92) 92 Manual Cuff/Auscultation 06/02/17 09:24 98.8 61 12 137/78 (97) 94 Manual Cuff/Auscultation 06/02/17 09:00 62 06/02/17 08:42 97.9 61 17 166/78 (107) 94 06/02/17 08:00 Nasal Cannula 2.00 06/02/17 08:00 54 06/02/17 07:17 54 06/02/17 06:00 55 06/02/17 05:00 53 06/02/17 04:00 62 06/02/17 04:00 98.3 62 18 161/79 (106) 98 06/02/17 03:00 56 06/02/17 02:00 67 06/02/17 01:00 80 06/02/17 00:00 Room Air 06/02/17 00:00 97.6 67 22 160/70 (100) 98 06/02/17 00:00 67 06/01/17 23:00 74 06/01/17 22:00 80 06/01/17 21:00 67 06/01/17 21:00 97.6 67 22 163/78 (106) 99 06/01/17 21:00 Room Air I/O 10/06/01/17 06/01/17 06/02/17 06/02/17 06/02/17 07:00 15:00 23:00 07:00 15:00 23:00 Intake Total 880 ml 580 ml 480 ml Output Total 0 ml 0 ml Balance 880 ml 580 ml 480 ml Intake Oral 880 ml 480 ml 480 ml IV Total 100 ml Output Urine Total 0 ml 0 ml # Bowel Movements 0 1 1 Result Diagram: 05/30/17 1602 05/31/17 1505 Objective Remarks GENERAL: This is a well-nourished, well-developed patient, in no apparent distress. SKIN: No rashes, warm and dry HEAD: Atraumatic. Normocephalic. EYES: Pupils equal round and reactive. Extraocular motions intact. No scleral icterus. ENT: Nose without bleeding, or drainage, Airway patent. NECK: Trachea midline. Supple CARDIOVASCULAR: Regular rate and rhythm without murmurs, gallops, or rubs. RESPIRATORY: Fair air entry bilaterally. No wheezes, rales, or rhonchi. GASTROINTESTINAL: Abdomen soft, non-tender, nondistended. Positive bowel sounds MUSCULOSKELETAL: Extremities without clubbing, right BKA NEUROLOGICAL: Awake and alert. Normal speech.no focal neurological deficit Procedures 05/28/17 EGD, colonoscopy A/P Problem List: (1) Hyperkalemia ICD Code: E87.5 - Hyperkalemia Status: Resolved (2) ESRD (end stage renal disease) on dialysis ICD Code: N18.6 - End stage renal disease; Z99.2 - Dependence on renal dialysis Status: Chronic (3) Anxiety ICD Code: F41.9 - Anxiety disorder, unspecified Status: Chronic (4) Depression ICD Code: F32.9 - Major depressive disorder, single episode, unspecified Status: Chronic (5) Diabetic retinopathy ICD Code: E11.319 - Type 2 diabetes mellitus with unspecified diabetic retinopathy without macular edema Status: Chronic (6) PAD (peripheral artery disease) ICD Code: I73.9 - Peripheral vascular disease, unspecified Status: Acute Permanent Comment: 10/2015 -Dr. Santillan - PAD - Rt calf/foot - angiogram done. 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 Right great toe not healing. Discoloration 4th toe. Dr. Garvey podiatry referral. Ultrasound 3 months for post procedure. If ok then Q6 months us with office visit. Last Edited By: Jude Ron on Oct 20, 2015 15:58 (7) Tobacco abuse ICD Code: Z72.0 - Tobacco use Status: Chronic (8) Hypertension ICD Code: I10 - Essential (primary) hypertension Status: Acute (9) Diabetes ICD Code: E11.9 - Type 2 diabetes mellitus without complications Status: Chronic (10) Abdominal pain, LUQ ICD Code: R10.12 - Left upper quadrant pain (11) Hyponatremia ICD Code: E87.1 - Hypo-osmolality and hyponatremia Assessment and Plan - Left upper quadrant abdominal pain: . Appreciate GI recommendations. EGD/ incomplete colonoscopy >S/P EGD with incomplete colonoscopy (05/28/17)---> Reflux esophagitis, Pangastritis, Incomplete colonoscopy due to poor prep. Pathology - stomach>> REACTIVE / CHEMICAL GASTROPATHY. - SEPARATE FRAGMENTS OF FIBRINOPURULENT EXUDATE, SUGGESTIVE OF NEARBY EROSION / ULCERATION. ESOPHAGUS, DISTAL, BIOPSY: - SQUAMOUS MUCOSA WITH RARE INTRA-EPITHELIAL EOSINOPHILS, CONSISTENT WITH REFLUX. - NEGATIVE FOR INTESTINAL METAPLASIA, DYSPLASIA OR MALIGNANCY. Pain most likely related to acute splenic infarction. - Bacteremia: Enterococcus and Klebsiella, Patient being treated for enterococcus bacteremia with vancomycin 1 g 3 times a week. Antibiotic per ID, follow blood culture, 2-D echo Normal left ventricular size. Mild concentric left ventricular hypertrophy [id number] mitral valve regurgitation. Mild mitral annular calcification. Calcification of both mitral valve leaflets. There is moderate tricuspid regurgitation. and may need MARILU deferred to ID - Hyponatremia with hyperkalemia: Improved followed by nephrology - Diabetes mellitus: Monitor Accu-Cheks and cover with sliding scale insulin. - End-stage renal disease: Hemodialysis per nephrology. - Calciphylaxis: Sodium thiosulfate with hemodialysis. Possible etiology of abdominal pain. - DVT prophylaxis: SCD to left lower extremity. Heparin was avoided secondary to allergy 05/29: Continue to have fever 102.9 overnight, increased WBC, send blood culture , I will consult ID for recurrent unresolved fever, patient on vancomycin 05/30:Sodium and creatinine still pending it was 127/8.42 yesterday, blood glucose 369, Levemir has been stopped I will resume with 7 units twice a day, preprandial 2 units 3 times a day, insulin sliding scale 05/31: Blood sugar much better reading today. Continue on current regimen, awaiting 2-D echo, iv recommending possible need for MARILU, continue iv vancomycin , hemodialysis per nephrology, skin lesion. 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 Addendum: I just discussed with she would like to follow the blood culture and possibly she can discharge her tomorrow on Cipro and Vanco with dialysis Problem Qualifiers (1) Diabetes: Meeta Juárez MD Jun 02, 2017 16:03
--- NOTE | 2017-06-02 16:05 | HHI.DS ---
Discharge Summary Admission Date May 22, 2017 at 20:07 Admitting Diagnosis hyperkalemia, ESRD, hyponatremia, noncompliance (1) Hyperkalemia ICD Code: E87.5 - Hyperkalemia Status: Resolved (2) ESRD (end stage renal disease) on dialysis ICD Code: N18.6 - End stage renal disease; Z99.2 - Dependence on renal dialysis Status: Chronic (3) Anxiety ICD Code: F41.9 - Anxiety disorder, unspecified Status: Chronic (4) Depression ICD Code: F32.9 - Major depressive disorder, single episode, unspecified Status: Chronic (5) Diabetic retinopathy ICD Code: E11.319 - Type 2 diabetes mellitus with unspecified diabetic retinopathy without macular edema Status: Chronic (6) PAD (peripheral artery disease) ICD Code: I73.9 - Peripheral vascular disease, unspecified Status: Acute (7) Tobacco abuse ICD Code: Z72.0 - Tobacco use Status: Chronic (8) Hypertension ICD Code: I10 - Essential (primary) hypertension Status: Acute (9) Diabetes ICD Code: E11.9 - Type 2 diabetes mellitus without complications Status: Chronic (10) Abdominal pain, LUQ ICD Code: R10.12 - Left upper quadrant pain (11) Hyponatremia ICD Code: E87.1 - Hypo-osmolality and hyponatremia Procedures 05/28/17 EGD, colonoscopy MARILU 1022 Brief History - From Admission 46-year-old female with past medical history of end-stage renal disease on hemodialysis Saturday, Saturday, Saturday, hypertension, coronary artery disease, hyperlipidemia, diabetes, hepatitis C, prior IVDU who presents to [facility] emergency department complaining of 6 day history of left upper quadrant abdominal pain. She states that on , May 16 she was getting up out of her wheelchair when she developed sharp pain in her left abdomen that radiates to her back. She states it is worse when she moves, touches it, lays on her left side, or takes a breath. She says pain has been improved by taking a friend's lortab. She has had some intermittent vomiting since the pain started. She states this is been a total of 9 times over the last few days. It has been nonbloody nonbilious. She at first attributed her symptoms to constipation but states she then had 3 bowel movements on Saturday. She denies any prior similar symptoms. She states she has never had an EGD or colonoscopy. She denies cough or shortness of breath. She does state she has been receiving and antibiotic at dialysis for the last 3 weeks but is uncertain why or what abx. She missed her last two dialysis sessions so her potassium is 7.3 and bicarb is 15.9. Nephrology was contacted and arranged for emergent hemodialysis. CBC/BMP: 05/30/17 1602 05/31/17 1505 Significant Findings Laboratory Tests Test 05/31/17 15:05 06/01/17 16:12 06/01/17 22:42 06/02/17 03:00 Blood Urea Nitrogen 30 MG/DL (7-18) Creatinine 4.99 MG/DL (0.50-1.00) Random Glucose 210 MG/DL (74-106) Sodium Level 131 MEQ/L (136-145) Chloride Level 93 MEQ/L (98-107) Estimat Glomerular Filtration Rate 9 ML/MIN (>89) Total Creatine Kinase 11 U/L (26-192) 22 U/L (26-192) Troponin I LESS THAN 0.02 NG/ML LESS THAN 0.02 NG/ML LESS THAN 0.02 NG/ML PE at Discharge GENERAL: This is a well-nourished, well-developed patient, in no apparent distress. SKIN: No rashes, warm and dry HEAD: Atraumatic. Normocephalic. EYES: Pupils equal round and reactive. Extraocular motions intact. No scleral icterus. ENT: Nose without bleeding, or drainage, Airway patent. NECK: Trachea midline. Supple CARDIOVASCULAR: Regular rate and rhythm without murmurs, gallops, or rubs. RESPIRATORY: Fair air entry bilaterally. No wheezes, rales, or rhonchi. GASTROINTESTINAL: Abdomen soft, non-tender, nondistended. Positive bowel sounds MUSCULOSKELETAL: Extremities without clubbing, right BKA NEUROLOGICAL: Awake and alert. Normal speech.no focal neurological deficit Hospital Course Left upper quadrant abdominal pain with recurrent fever: . Appreciate GI recommendations. EGD/incomplete colonoscopy >S/P EGD with incomplete colonoscopy (05/28/17)> Reflux esophagitis, Pangastritis, Incomplete colonoscopy due to poor prep. Pathology - stomach>> REACTIVE / CHEMICAL GASTROPATHY. SEPARATE FRAGMENTS OF FIBRINOPURULENT EXUDATE, SUGGESTIVE OF NEARBY EROSION / ULCERATION. ESOPHAGUS, DISTAL, BIOPSY: SQUAMOUS MUCOSA WITH RARE INTRA-EPITHELIAL EOSINOPHILS, CONSISTENT WITH REFLUX. NEGATIVE FOR INTESTINAL METAPLASIA, DYSPLASIA OR MALIGNANCY. Pain most likely related to acute splenic infarction. Bacteremia with recurrent fever: Enterococcus and Klebsiella, Patient being treated for enterococcus bacteremia with vancomycin 1 g 3 times a week. Antibiotic per ID, follow blood culture, 2D echo Normal left ventricular size. Mild concentric left ventricular hypertrophy Mildtomoderate mitral valve regurgitation. Mild mitral annular calcification. Calcification of both mitral valve leaflets. There is moderate tricuspid regurgitation. MARILU negative for vegetation Hyponatremia with hyperkalemia: Improved followed by nephrology Diabetes mellitus has been uncontrolled improved with insulin adjustment, I can tell noncompliance can be an issue with patient having candy by her all the time , Monitor Accu-Cheks and cover with sliding scale insulin. Endstage renal disease: Hemodialysis per nephrology. Calciphylaxis: Sodium thiosulfate with hemodialysis. Possible etiology of abdominal pain. DVT prophylaxis: SCD to left lower extremity. Heparin was avoided secondary to allergy [id number] encounter performed with the patient on discharge day, as well as physical exam, summary of hospitalization course and postdischarge plan has been D/W the patient. D/W nurse D/W ID rec cipro po and vanco iv w hd x28 days D/W shoe caser. Discharge medications reviewed and printed and signed, post discharge follow up visit with PCP and other specialist as well as Brief hospital course and discharge summary has been placed. Pt Condition on Discharge: Good Discharge Disposition: Discharge Home Discharge Time: > 30 minutes Discharge Instructions DIET: Follow Instructions for: Heart Healthy Diet, Diabetic Diet Activities you can perform: Weight Bearing as Rashi New Medications: Ciprofloxacin (Cipro) 250 Mg Tab 750 MG PO DAILY for Infection for 28 Days, #28 TAB 0 Refills Insulin Aspart Inj (Novolog Inj) 1,000 Unit/10 Ml Vial 2 UNITS SQ TIDAC for dm for 30 Days, INJECTION Insulin Aspart Inj (Novolog Inj) 100 Unit/Ml Inj 1 UNIT SQ Q4HR for dm for 30 Days, INJECTION Insulin Detemir Inj (Levemir Inj) 1,000 unit/ 10 ML Vial 7 UNITS SQ Q12HR for dm for 30 Days, INJECTION Do not mix with any other Insulin. Continued Medications: Carvedilol (Carvedilol) 6.25 Mg Tab 6.25 MG PO BID, #60 TAB 0 Refills Clopidogrel (Plavix) 75 Mg Tab 75 MG PO DAILY for Blood Clot Prevention, #30 TAB Docusate Sodium (Colace) 100 Mg Capsule 100 MG BID Gabapentin (Gabapentin) 600 Mg Tab 600 MG PO TID, #90 TAB 0 Refills Hydroxyzine HCl (Hydroxyzine HCl) 10 Mg Tab 10 MG PO Q8HR for Itching, TAB 0 Refills Omeprazole (Omeprazole) 40 Mg Cap 40 MG PO DAILY, #30 CAP 5 Refills Sertraline (Sertraline) 100 Mg Tab 100 MG PO DAILY, #30 TAB 0 Refills Sevelamer Carbonate (Renvela) 800 Mg Tab 3200 MG PO QIDPC for Control phosphorous levels, #90 TAB 0 Refills Trazodone (Trazodone) 50 Mg Tab 50 MG PO HS for Control Depression, #30 TAB 0 Refills Meeta Juárez MD Jun 02, 2017 16:05
[2017-06-02] MEDS: CEFEPIME INJ 2,000 MG in SODIUM CHLORIDE 0.9% INJ 100 ML IV SCH (16:28)
[2017-06-02 18:02] LABS: AUTOMATED NEUTROPHIL # 6.3 TH/MM3 (1.8-7.7); BASOPHIL # 0.1 TH/MM3 (0-0.2); EOSINOPHIL # 0.3 TH/MM3 (0-0.4); EOSINOPHIL % 3.2 % (0.0-4.0); HEMATOCRIT 28.1 % (35.0-46.0); HEMO FLAGS DIFF FINAL; LYMPH % 11.9 % (9.0-44.0); MEAN CELL VOLUME 93.9 FL (80.0-100.0); MEAN CORPUSCULAR HEMOGLOBIN 31.1 PG (27.0-34.0); MEAN CORPUSCULAR HGB CONC 33.1 % (32.0-36.0); MONO % 11.2 % (0.0-8.0); NEUT % 72.7 % (16.0-70.0); PLATELET COUNT 182 TH/MM3 (150-450); RED CELL DISTRIBUTION WIDTH 15.5 % (11.6-17.2); WHITE BLOOD COUNT 8.7 TH/MM3 (4.0-11.0)
[2017-06-02 18:27] LABS: BICARBONATE 23.3 MEQ/L (21.0-32.0); POTASSIUM 5.9 MEQ/L (3.5-5.1)
[2017-06-02] MEDS: diphenhydrAMINE HCL 25 MG CAP PO PRN (22:37)
[2017-06-02] MEDS: traZODone HCL 50 MG TAB PO SCH (22:39)
[2017-06-03] VITALS (19 sets, daily range): BP systolic 128–180; BP diastolic 68–88; PULSE 53–75; RESP 16–18; TEMP 98.2–98.6; O2SAT 92–97
[2017-06-03] MEDS: INSULIN ASPART SUPPLEMENTAL SCALE SQ SCH ×4 (04:00→12:12)
[2017-06-03] MEDS: CHLORHEXIDINE GLUCONATE 2 % 1 PACK (2 CLOTHS) TOP SCH (04:00)
[2017-06-03] MEDS: ACETAMINOPHEN/HYDROcodone 325 MG/5 MG TAB PO PRN ×2 (04:04→09:59)
[2017-06-03] MEDS: METOCLOPRAMIDE HCL 10 MG/2 ML VIAL IV PUSH SCH ×2 (04:05→12:13)
[2017-06-03] MEDS: cloNIDine HCL 0.1 MG TAB PO PRN ×2 (04:18→15:36)
[2017-06-03] MEDS: INSULIN ASPART 1,000 UNITS/10 ML VIAL SQ SCH ×2 (08:32→12:12)
[2017-06-03] MEDS: CARVEDILOL 6.25 MG TAB PO SCH (08:34)
[2017-06-03] MEDS: SEVELAMER CARBONATE 800 MG TAB PO SCH ×2 (08:34→12:13)
[2017-06-03] MEDS: CALCIUM ACETATE 667 MG CAP PO SCH ×2 (08:34→12:13)
[2017-06-03] MEDS: diphenhydrAMINE HCL 25 MG CAP PO PRN (08:34)
[2017-06-03] MEDS: CHOLECALCIFEROL (VIT D3) 5000 UNIT CAP PO SCH (08:34)
[2017-06-03] MEDS: SODIUM CHLORIDE 0.9% FLUSH 10 ML FLUSH IV FLUSH SCH (08:34)
[2017-06-03] MEDS: SERTRALINE HCL 100 MG TAB PO SCH (08:34)
[2017-06-03] MEDS: PANTOPRAZOLE SOD 40 MG DELAYED RELEASE TAB PO SCH (08:34)
[2017-06-03] MEDS: VITAMIN B CMPLX/VITC/FOLIC AC CAP PO SCH (08:35)
[2017-06-03] MEDS: DOCUSATE SODIUM 100 MG CAP PO SCH (08:36)
[2017-06-03] MEDS: DOCUSATE SODIUM 50 MG/SENNA 8.6 MG TAB PO SCH (08:36)
[2017-06-03] MEDS: INSULIN DETEMIR 100 UNITS/ML VIAL SQ SCH (08:57)
[2017-06-03] MEDS ORDERED: CIPR250T52 PO (10:05)
--- NOTE | 2017-06-03 10:07 | HHI.FF ---
Infusion Therapy Location of Infusion Therapy: Dialysis Center Patient Information Patient Weight 111.4 kg Diagnosis: Diagnosis Enterococcal bacteremia Coded Allergies: codeine (Unverified Allergy, Severe, HYPERACTIVITY &ITCH, 05/22/17) iodine (Unverified Allergy, Severe, TOPICAL/ITCH, 05/22/17) potassium iodide (Unverified Allergy, Severe, TOPICAL/ITCH, 05/22/17) povidone-iodine (Unverified Allergy, Severe, TOPICAL/ITCH, 05/22/17) sodium iodide (Unverified Allergy, Severe, TOPICAL/ITCH, 05/22/17) sodium iodide (Unverified Allergy, Severe, TOPICAL/ITCH, 05/22/17) iohexol (Unverified Allergy, Intermediate, HIVES, 05/22/17) Pork/Porcine Containing Products (Unverified Allergy, Unknown, 05/22/17) penicillin G (Unverified Allergy, Unknown, 05/22/17) Administer Medication Vancomycin 1 gram IV q 48 hours w/Hemodialysis M,W,F Stop Treatment: Jun 30, 2017 Additional Information Additional Medications Cipro 750 mg po daily x 28 days Venous access: Other (AVF) Additional Instructions [x] Peripheral flush and dressing changes per protocol [x] Implanted port and central liner roll changer: * Implanted port: 10 ml Normal Saline followed by 5 ml Heparin 100 units/ml Heparin flush after each use and monthly to maintain. [] May leave port accessed during therapy. [] May leave peripheral site accessed for duration of therapy. [x] If patient has SOB or respiratory distress, check oxygen saturation. If less than 90% or clinical signs of respiratory distress, administer oxygen at 2 L/min. via nasal cannula and notify physician. [x] Anaphylaxis/Reaction orders: * Stop infusion. * Keep IV line open with saline flush. * Notify physician. * Monitor vital signs every 15 minutes until symptoms resolve. * Check Oxygen saturation; Oxygen at 2 L/min. via nasal cannula if less than 90% or clinical signs of respiratory distress. * Administer diphenhydramine (Benadryl) 25 mg IV STAT, (unless patient has received as pre-med). May repeat once, if necessary. * Solu-Cortef 250 mg IVP over 30-60 seconds, use 100 mg vials for each dissolution. * Epinephrine (1mg/1 ml) 0.3 mg subcutaneously or IVP now with any signs of respiratory distress. * Check with physician for new additional pre-med orders if patient is re- challenged or re-treated. [x] May remove PICC line when treatment complete, after confirming with Physician. [x] If the patient is admitted to the hospital, the ED, or transferred via [facility] , complete transfer form including medication reconciliation order sheet. Carrie Sanchez MD Jun 03, 2017 10:07
--- NOTE | 2017-06-03 10:12 | HHI.IDPN ---
Subjective Subjective Remarks Patient is a 46-year-old female, with end-stage renal disease, gets hemodialysis Saturday and Saturday using her right upper extremity AV fistula, [place] to the hospital complaining of 6 day history of abdominal pain specifically in the left upper quadrant. It improved a little bit with Lortab, but she started having some nausea and vomiting. She presented to the hospital, and imaging studies showed evidence of splenic infarct. Of note is the patient has been on IV antibiotic with her hemodialysis for enterococcal bacteremia. She is not clear as to what kind of workup was done and not clear as to where the infection came from. Patient has an AV fistula and it had some problem and she underwent looks like vascular work to open up her AV fistula couple months ago. Patient currently still complains of pain in the left upper quadrant. She has not had any further vomiting. Patient has no urine output since she's been on dialysis in the last 6-7 years. She denies any respiratory complaint. Denies any diarrhea. There is also history of IV drug use, but she stated that she hasn't used it in the last 6 months. 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 Patient received IV vancomycin on May 24, and has not received any IV antibiotics. In the last 2 days patient has been running fevers. Infectious disease consultation has been requested to evaluate the patient with fevers Notes reviewed Temps ok Anxious to go home Spoke with Dr Juárez yesterday No new (+) BC MARILU negative Antibiotics I attest that I obtained, updated or reviewed the home and current medications. Vancomycin Cefepime Current Medications Medications (Trade) Dose Ordered Sig/Jen Route Start Time Stop Time Status Last Admin Albumin Human 100 ml @ 60 mls/hr UNSCH PRN IV 05/22/17 21:15 ([place] 5-325 Mg) 1 tab Q6H PRN PO 05/22/17 21:30 05/23/17 08:49 ([place] 5-325 Mg) 2 tab Q6H PRN PO 05/22/17 21:30 06/03/17 09:59 (NS Flush) 2 ml UNSCH PRN IV FLUSH 05/23/17 01:00 (NS Flush) 2 ml BID IV FLUSH 05/23/17 09:00 06/03/17 08:34 (Protonix) 40 mg DAILY PO 05/23/17 09:00 06/03/17 08:34 Miscellaneous Information 1 Q361D XX 05/23/17 01:00 (Chlorhexidine 2% Cloth) Taper DAILY@04 TOP 05/23/17 04:00 05/19/18 03:59 05/28/17 04:18 (Chlorhexidine 2% Cloth) 3 pack UNSCH PRN TOP 05/23/17 01:00 (Areli-Colace) 1 tab BID PO 05/23/17 09:00 06/01/17 21:17 (Milk Of Magnesia Liq) 30 ml Q12H PRN PO 05/23/17 01:00 (Senokot) 17.2 mg Q12H PRN PO 05/23/17 01:00 (Dulcolax Supp) 10 mg DAILY PRN RECTAL 05/23/17 01:00 (Lactulose Liq) 30 ml DAILY PRN PO 05/23/17 01:00 Sodium Chloride 1,000 ml @ 0 mls/hr Q0M PRN OTHER 05/23/17 01:15 05/23/17 01:23 (Heparin Inj) 8,000 units UNSCH PRN IV FLUSH 05/23/17 01:15 Sodium Chloride 1,000 ml @ 200 mls/hr Q5H PRN IV 05/23/17 01:15 Sodium Chloride 1,000 ml @ 0 mls/hr Q0M PRN OTHER 05/23/17 01:15 (Mannitol Inj) 12.5 gm UNSCH PRN IV 05/23/17 01:15 (NS Flush) 5 ml UNSCH PRN IV FLUSH 05/23/17 01:15 (Heparin Inj) UNSCH PRN .XX 05/23/17 01:15 (Gentamicin (Dialysis) Inj) 20 mg UNSCH PRN OTHER 05/23/17 01:15 (Zofran Inj) 4 mg UNSCH PRN IV PUSH 05/23/17 01:15 (Tylenol) 650 mg UNSCH PRN PO 05/23/17 01:15 05/31/17 17:00 (Benadryl) 25 mg UNSCH PRN PO 05/23/17 01:15 06/03/17 08:34 (Nitrostat Sl) 0.4 mg UNSCH PRN SL 05/23/17 01:15 (Catapres) 0.1 mg UNSCH PRN PO 05/23/17 01:15 06/03/17 04:18 (Gelfoam 12 Mm/7 Mm Top) 1 foam UNSCH PRN TOP 05/23/17 01:15 05/29/17 14:39 (Coreg) 6.25 mg BID PO 05/23/17 09:00 06/03/17 08:34 (Vitamin D3) 5,000 units DAILY PO 05/23/17 09:00 06/03/17 08:34 (Plavix) 75 mg DAILY PO 05/23/17 09:00 Future Hold 05/26/17 08:34 (Colace) 100 mg BID PO 05/23/17 09:00 06/01/17 21:17 (Zoloft) 100 mg DAILY PO 05/23/17 09:00 06/03/17 08:34 (Renvela) 3,200 mg TID PO 05/23/17 09:00 06/03/17 08:34 (Desyrel) 50 mg HS PO 05/23/17 21:00 06/02/17 22:39 (Nephrocaps) 1 cap DAILY PO 05/23/17 09:00 06/03/17 08:35 (Reglan Inj) 5 mg Q8H IV PUSH 05/23/17 12:00 06/03/17 04:05 (Neurontin) 300 mg Q24H PO 05/25/17 13:00 06/02/17 12:28 (Phoslo) 1,334 mg TID PO 05/25/17 18:00 06/03/17 08:34 Sodium Thiosulfate 10692 mg/Sterile Water 150 ml @ 150 mls/hr WITH DIALYSIS PRN IV 05/25/17 14:15 05/31/17 12:39 (D50w (Vial) Inj) 50 ml UNSCH PRN IV PUSH 05/25/17 15:30 05/28/17 08:53 (Glucagon Inj) 1 mg UNSCH PRN OTHER 05/25/17 15:30 (Epogen Inj) 10,000 units UNSCH PRN IV PUSH 05/29/17 13:15 Vancomycin HCl 1000 mg/Sodium Chloride 250 ml @ 250 mls/hr MoWeFr IV 05/29/17 18:00 05/31/17 18:53 (Levemir Inj) 7 units Q12HR SQ 05/30/17 12:15 06/03/17 08:57 (NovoLOG INJ) 2 units TIDAC SQ 05/30/17 12:00 06/02/17 17:00 Cefepime HCl 2000 mg/Sodium Chloride 100 ml @ 200 mls/hr Q24H IV 05/30/17 17:00 06/02/17 16:28 (NovoLOG SUPPLEMENTAL SCALE) 1 Q4HR SQ 05/30/17 20:00 06/02/17 22:46 (Cipro) 750 mg DAILY PO 06/03/17 10:00 07/01/17 09:59 UNV Lines PIV Past Medical History ESRD - she states she started HD 5-6 years ago due to diabetic/hypertensive nephropathy and vancomycin exposure. (Dr. 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 Past Surgical History Cholecystectomy Right upper extremity fistula Right nephrectomy due to ovarian cyst Dental extractions Tonsillectomy RBKA Allergies: Coded Allergies: codeine (Unverified Allergy, Severe, HYPERACTIVITY &ITCH, 05/22/17) iodine (Unverified Allergy, Severe, TOPICAL/ITCH, 05/22/17) potassium iodide (Unverified Allergy, Severe, TOPICAL/ITCH, 05/22/17) povidone-iodine (Unverified Allergy, Severe, TOPICAL/ITCH, 05/22/17) sodium iodide (Unverified Allergy, Severe, TOPICAL/ITCH, 05/22/17) sodium iodide (Unverified Allergy, Severe, TOPICAL/ITCH, 05/22/17) iohexol (Unverified Allergy, Intermediate, HIVES, 05/22/17) Pork/Porcine Containing Products (Unverified Allergy, Unknown, 05/22/17) penicillin G (Unverified Allergy, Unknown, 05/22/17) Objective . Vital Signs Date Time Temp Pulse Resp B/P (MAP) Pulse Ox O2 Delivery O2 Flow Rate FiO2 06/03/17 09:00 53 06/03/17 08:00 60 06/03/17 07:10 Room Air 06/03/17 07:00 65 06/03/17 06:00 56 06/03/17 05:00 55 06/03/17 04:19 98.6 62 16 176/80 (112) 92 06/03/17 04:15 180/86 (117) 06/03/17 04:00 62 06/03/17 03:00 58 06/03/17 02:00 56 06/03/17 01:06 98.6 66 16 160/82 (108) 94 06/03/17 01:00 58 06/03/17 00:00 60 06/02/17 23:00 65 06/02/17 22:00 62 06/02/17 21:00 62 06/02/17 20:57 95 21 06/02/17 20:12 95 Room Air 06/02/17 20:10 98.5 63 16 158/76 (103) 95 06/02/17 20:00 64 06/02/17 19:00 68 06/02/17 18:00 62 06/02/17 17:00 62 06/02/17 16:32 97 21 06/02/17 16:22 98.7 61 17 162/78 (106) 97 06/02/17 16:00 56 06/02/17 15:00 155/74 (101) 06/02/17 15:00 55 06/02/17 14:00 60 06/02/17 13:00 64 06/02/17 12:00 64 06/02/17 12:00 99.0 62 18 158/77 (104) 94 06/02/17 11:00 73 . Laboratory Tests Test 06/02/17 17:46 White Blood Count 8.7 TH/MM3 Red Blood Count 3.00 MIL/MM3 Hemoglobin 9.3 GM/DL Hematocrit 28.1 % Mean Corpuscular Volume 93.9 FL Mean Corpuscular Hemoglobin 31.1 PG Mean Corpuscular Hemoglobin Concent 33.1 % Red Cell Distribution Width 15.5 % Platelet Count 182 TH/MM3 Mean Platelet Volume 8.7 FL Neutrophils (%) (Auto) 72.7 % Lymphocytes (%) (Auto) 11.9 % Monocytes (%) (Auto) 11.2 % Eosinophils (%) (Auto) 3.2 % Basophils (%) (Auto) 1.0 % Neutrophils # (Auto) 6.3 TH/MM3 Lymphocytes # (Auto) 1.0 TH/MM3 Monocytes # (Auto) 1.0 TH/MM3 Eosinophils # (Auto) 0.3 TH/MM3 Basophils # (Auto) 0.1 TH/MM3 CBC Comment DIFF FINAL Differential Comment Laboratory Tests Test 06/01/17 16:12 06/01/17 22:42 06/02/17 03:00 06/02/17 17:46 Total Creatine Kinase 11 U/L 22 U/L 69 U/L Troponin I LESS THAN 0.02 NG/ML LESS THAN 0.02 NG/ML LESS THAN 0.02 NG/ML Blood Urea Nitrogen 56 MG/DL Creatinine 7.77 MG/DL Random Glucose 200 MG/DL Calcium Level 9.4 MG/DL Sodium Level 126 MEQ/L Potassium Level 5.9 MEQ/L Chloride Level 91 MEQ/L Carbon Dioxide Level 23.3 MEQ/L Anion Gap 12 MEQ/L Estimat Glomerular Filtration Rate 6 ML/MIN Microbiology Date/Time Source Procedure Growth Status 05/31/17 19:39 Blood Peripheral Aerobic Blood Culture - Preliminary NO GROWTH IN 2 DAYS Resulted 05/31/17 19:39 Blood Peripheral Anaerobic Blood Culture - Preliminary NO GROWTH IN 2 DAYS Resulted Imaging Last Impressions Upper Extremity Ultrasound 05/29/17 0000 Signed Impressions: Service Date/Time: Monday, May 29, 2017 20:25 - CONCLUSION: 1. Patent fistula Rhys Barker MD Chest X-Ray 05/29/17 0000 Signed Impressions: Service Date/Time: Monday, May 29, 2017 20:58 - CONCLUSION: Hypoaeration. Yo Romero MD Abdomen/Pelvis CT 05/25/17 0000 Signed Impressions: Service Date/Time: Friday, May 26, 2017 13:17 - CONCLUSION: 1. Findings characteristic of acute splenic infarction. There is heavy calcification of the splenic artery though the celiac and superior mesenteric arteries are patent. 2. Hypodense liver compatible with fatty infiltration or hepatocellular disease. 3. Diverticulosis without evidence of diverticulitis. 4. Probable left adrenal adenoma Rhys Barker MD Physical Exam GENERAL: awake and alert, not in respiratory distress. SKIN: Warm and dry. Has superficial round ulcers on face and some in her UE HEAD: Atraumatic. Normocephalic. No temporal wasting, or tenderness. EYES: [place] conjunctiva. No petechia or hemorrhage. Pupils equal, round and reactive to light. Extraocular movements full and intact. No scleral icterus. No injection or drainage. EARS, NOSE AND THROAT: Nose without bleeding or purulent nasal discharge. No sinus tenderness. Mucous membranes pink and moist. No oral lesions noted. No exudate. NECK: Trachea midline. Supple and not tender, no meningeal signs CARDIOVASCULAR: Regular rate and rhythm. No murmurs, rubs or gallops heard RESPIRATORY: Clear to auscultation. Breath sounds equal bilaterally. No rales , wheezing or rhonchi ABDOMEN: Soft, nondistended, tender in LUQ. Bowel sounds present and normoactive. No guarding. No rebound. No organomegaly. EXTREMITIES: No clubbing, cyanosis, or edema. No calf tenderness. Well perfused and warm. RUE AVF with no evidence of infection. S/P RBKA, well healed stump NEUROLOGICAL: Awake and alert. Cranial nerves grossly intact. Motor grossly within normal limits. PSYCHIATRIC: Normal affect, calm and cooperative. LINE: No evidence of infection Assessment & Plan Remarks IMPRESSION Enterococcal bacteremia being treated in HD center, source? - suspicious for endovascular focus, ?possible etiology of splenic infarct - prior Hx IVDU, claims last use was 6 months ago Klebsiella bacteremia, source? 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
--- NOTE | 2017-06-03 11:33 | HHI.PR ---
Subjective Remarks doing well ready for dc Objective Vitals Vital Signs Date Time Temp Pulse Resp B/P (MAP) Pulse Ox O2 Delivery O2 Flow Rate FiO2 06/03/17 11:05 18 06/03/17 11:03 60 06/03/17 10:05 60 06/03/17 09:00 53 06/03/17 08:25 98.3 75 18 165/78 (107) 94 06/03/17 08:00 60 06/03/17 07:10 Room Air 06/03/17 07:00 65 06/03/17 06:00 56 06/03/17 05:00 55 06/03/17 04:19 98.6 62 16 176/80 (112) 92 06/03/17 04:15 180/86 (117) 06/03/17 04:00 62 06/03/17 03:00 58 06/03/17 02:00 56 06/03/17 01:06 98.6 66 16 160/82 (108) 94 06/03/17 01:00 58 06/03/17 00:00 60 06/02/17 23:00 65 06/02/17 22:00 62 06/02/17 21:00 62 06/02/17 20:57 95 21 06/02/17 20:12 95 Room Air 06/02/17 20:10 98.5 63 16 158/76 (103) 95 06/02/17 20:00 64 06/02/17 19:00 68 06/02/17 18:00 62 06/02/17 17:00 62 06/02/17 16:32 97 21 06/02/17 16:22 98.7 61 17 162/78 (106) 97 06/02/17 16:00 56 06/02/17 15:00 155/74 (101) 06/02/17 15:00 55 06/02/17 14:00 60 06/02/17 13:00 64 06/02/17 12:00 64 06/02/17 12:00 99.0 62 18 158/77 (104) 94 I/O 06/02/17 06/02/17 06/02/17 06/03/17 06/03/17 06/03/17 07:00 15:00 23:00 07:00 15:00 23:00 Intake Total 480 ml 800 ml 720 ml Output Total 0 ml 0 ml Balance 480 ml 800 ml 720 ml Intake Oral 480 ml 700 ml 720 ml IV Total 100 ml Output Urine Total 0 ml 0 ml # Bowel Movements 1 1 Result Diagram: 06/02/17174506/02/171745 Objective Remarks GENERAL: This is a well-nourished, well-developed patient, in no apparent distress. SKIN: No rashes, warm and dry HEAD: Atraumatic. Normocephalic. EYES: Pupils equal round and reactive. Extraocular motions intact. No scleral icterus. ENT: Nose without bleeding, or drainage, Airway patent. NECK: Trachea midline. Supple CARDIOVASCULAR: Regular rate and rhythm without murmurs, gallops, or rubs. RESPIRATORY: Fair air entry bilaterally. No wheezes, rales, or rhonchi. GASTROINTESTINAL: Abdomen soft, non-tender, nondistended. Positive bowel sounds MUSCULOSKELETAL: Extremities without clubbing, right BKA NEUROLOGICAL: Awake and alert. Normal speech.no focal neurological deficit Procedures 05/28/17 EGD, colonoscopy MARILU 1022 A/P Problem List: (1) Hyperkalemia ICD Code: E87.5 - Hyperkalemia Status: Resolved (2) ESRD (end stage renal disease) on dialysis ICD Code: N18.6 - End stage renal disease; Z99.2 - Dependence on renal dialysis Status: Chronic (3) Anxiety ICD Code: F41.9 - Anxiety disorder, unspecified Status: Chronic (4) Depression ICD Code: F32.9 - Major depressive disorder, single episode, unspecified Status: Chronic (5) Diabetic retinopathy ICD Code: E11.319 - Type 2 diabetes mellitus with unspecified diabetic retinopathy without macular edema Status: Chronic (6) PAD (peripheral artery disease) ICD Code: I73.9 - Peripheral vascular disease, unspecified Status: Acute Permanent Comment: 10/2015 -Dr. Santillan - PAD - Rt calf/foot - angiogram done. Chronic total occlusion of AT with right AT Ath/LICENSED MIDWIFE on 09/23/15. Right great toe not healing. Discoloration 4th toe. Dr. Garvey podiatry referral. Ultrasound 3 months for post procedure. If ok then Q6 months us with office visit. Last Edited By: Jude Ron on Oct 20, 2015 15:58 (7) Tobacco abuse ICD Code: Z72.0 - Tobacco use Status: Chronic (8) Hypertension ICD Code: I10 - Essential (primary) hypertension Status: Acute (9) Diabetes ICD Code: E11.9 - Type 2 diabetes mellitus without complications Status: Chronic (10) Abdominal pain, LUQ ICD Code: R10.12 - Left upper quadrant pain (11) Hyponatremia ICD Code: E87.1 - Hypo-osmolality and hyponatremia Assessment and Plan - Left upper quadrant abdominal pain: . Appreciate GI recommendations. EGD/ incomplete colonoscopy >S/P EGD with incomplete colonoscopy (05/28/17)---> Reflux esophagitis, Pangastritis, Incomplete colonoscopy due to poor prep. Pathology - stomach>> REACTIVE / CHEMICAL GASTROPATHY. - SEPARATE FRAGMENTS OF FIBRINOPURULENT EXUDATE, SUGGESTIVE OF NEARBY EROSION / ULCERATION. ESOPHAGUS, DISTAL, BIOPSY: - SQUAMOUS MUCOSA WITH RARE INTRA-EPITHELIAL EOSINOPHILS, CONSISTENT WITH REFLUX. - NEGATIVE FOR INTESTINAL METAPLASIA, DYSPLASIA OR MALIGNANCY. Pain most likely related to acute splenic infarction. - Bacteremia: Enterococcus and Klebsiella, Patient being treated for enterococcus bacteremia with vancomycin 1 g 3 times a week. Antibiotic per ID, follow blood culture, 2-D echo Normal left ventricular size. Mild concentric left ventricular hypertrophy [id number] mitral valve regurgitation. Mild mitral annular calcification. Calcification of both mitral valve leaflets. There is moderate tricuspid regurgitation. and may need MARILU deferred to ID - Hyponatremia with hyperkalemia: Improved followed by nephrology - Diabetes mellitus: Monitor Accu-Cheks and cover with sliding scale insulin. - End-stage renal disease: Hemodialysis per nephrology. - Calciphylaxis: Sodium thiosulfate with hemodialysis. Possible etiology of abdominal pain. - DVT prophylaxis: SCD to left lower extremity. Heparin was avoided secondary to allergy 05/29: Continue to have fever 102.9 overnight, increased WBC, send blood culture , I will consult ID for recurrent unresolved fever, patient on vancomycin 05/30:Sodium and creatinine still pending it was 127/8.42 yesterday, blood glucose 369, Levemir has been stopped I will resume with 7 units twice a day, preprandial 2 units 3 times a day, insulin sliding scale 05/31: Blood sugar much better reading today. Continue on current regimen, awaiting 2-D echo, iv recommending possible need for MARILU, continue iv vancomycin , hemodialysis per nephrology, skin lesion. 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 Addendum: I just discussed with she would like to follow the blood culture and possibly she can discharge her tomorrow on Cipro and Vanco with dialysis 06/03: ready for dc , cleared by id to go on cipro and vanco iv with hd x28 days Problem Qualifiers (1) Diabetes: Meeta Juárez MD Jun 03, 2017 11:33
[2017-06-03] MEDS: GABAPENTIN 300 MG CAP PO SCH (12:13)
[2017-06-03] MEDS: SODIUM THIOSULFATE INJ 12,500 MG in WATER STERILE FOR INJ 100 ML IV PRN (15:36)
[2017-06-03] MEDS: GELATIN 12 MM/7 MM FOAM TOP PRN (15:45)
[2017-06-04] MEDS ORDERED: CIPROFLOXACIN 750 MG TAB PO SCH (12:00)
== END 2017-06-03 17:33 | disposition home or self-care (01) | DRG 391 ==
LOC: NEPD 13:29 → NEDA 20:07 → N03B 21:31 → N04B 05-23 16:03 → HCIN 06-01 20:48
PROVIDERS: ADMIT Emergency Medicine; ATTEND Hospitalist
PROC: 5A1D70Z Performance of Urinary Filtration, Intermittent, Less than 6 Hours Per Day (ICD-10-PCS; principal; 2017-05-22)
PROC: 0DB68ZX Excision of Stomach, Via Natural or Artificial Opening Endoscopic, Diagnostic (ICD-10-PCS; 2017-05-28)
PROC: 0DJD8ZZ Inspection of Lower Intestinal Tract, Via Natural or Artificial Opening Endoscopic (ICD-10-PCS; 2017-05-28)
PROC: 0DB38ZX Excision of Lower Esophagus, Via Natural or Artificial Opening Endoscopic, Diagnostic (ICD-10-PCS; 2017-05-28 14:45)
PROC: B246ZZ4 Ultrasonography of Right and Left Heart, Transesophageal (ICD-10-PCS; 2017-06-02)
DX: R10.12 Left upper quadrant pain (principal); N18.6 End stage renal disease; R78.81 Bacteremia; E87.5 Hyperkalemia; I13.2 Hypertensive heart and chronic kidney disease with heart failure and with stage 5 chronic kidney disease, or end stage renal disease; E11.22 Type 2 diabetes mellitus with diabetic chronic kidney disease; I08.1 Rheumatic disorders of both mitral and tricuspid valves; E11.42 Type 2 diabetes mellitus with diabetic polyneuropathy; E87.1 Hypo-osmolality and hyponatremia; Z68.41 Body mass index [BMI] 40.0-44.9, adult; D73.5 Infarction of spleen; E11.51 Type 2 diabetes mellitus with diabetic peripheral angiopathy without gangrene; K21.0 Gastro-esophageal reflux disease with esophagitis; F32.9 Major depressive disorder, single episode, unspecified; F41.9 Anxiety disorder, unspecified; R10.13 Epigastric pain; E11.319 Type 2 diabetes mellitus with unspecified diabetic retinopathy without macular edema; E78.5 Hyperlipidemia, unspecified; E83.59 Other disorders of calcium metabolism; D64.9 Anemia, unspecified; E11.65 Type 2 diabetes mellitus with hyperglycemia; Z91.15 Patient's noncompliance with renal dialysis; Z99.2 Dependence on renal dialysis; F17.210 Nicotine dependence, cigarettes, uncomplicated; L98.9 Disorder of the skin and subcutaneous tissue, unspecified; H54.8 Legal blindness, as defined in USA; R07.89 Other chest pain; E66.01 Morbid (severe) obesity due to excess calories; B96.1 Klebsiella pneumoniae [K. pneumoniae] as the cause of diseases classified elsewhere; I25.10 Atherosclerotic heart disease of native coronary artery without angina pectoris; B95.2 Enterococcus as the cause of diseases classified elsewhere; K29.70 Gastritis, unspecified, without bleeding; I50.9 Heart failure, unspecified; D72.829 Elevated white blood cell count, unspecified; B19.20 Unspecified viral hepatitis C without hepatic coma; K31.9 Disease of stomach and duodenum, unspecified; Z88.1 Allergy status to other antibiotic agents; Z88.8 Allergy status to other drugs, medicaments and biological substances; Z88.5 Allergy status to narcotic agent; Z91.041 Radiographic dye allergy status; Z88.0 Allergy status to penicillin
CPT/HCPCS: 36591; 71020; 74176; 74177; 76937; 80048; 80053; 82550; 82948; 83605; 83690; 84100; 84132; 84484; 85025; 85027; 87040; 87186; 87205; 87522; 87641; 87902; 88305; 88312; 90935; 93005; 93306; 93312; 93320; 93325; 93990; 94640; 94664; 96365; 96374; 96375; J0610; J0692; J1815; J2270; J2405; J2765; J3370; J7030; J7050; J7512; J7611; J7613; Q0163; Q9963; Q9967

== ENCOUNTER 2017-06-17 09:58 | Inpatient (IN) | payer MEDICAID ==
[~2017-06-17] VITALS: Ht 165.1 cm; Wt 100.0 kg
[~2017-06-17 09:58] MED LIST changes: -ASCO500T PO; -BLOOD GLUCOSE M1 KIT; -BLOOD GLUCOSE T1 TES; -CINA30 PO; +CIPR250T52 PO; -COLA100C; +COLA100C5; -FOSR1000 CHEW; -LANCETS1 MI1; -LORA-373 PO; +NICO21DI2 T-DERMAL; -PERC5TAB12 PO; -TRIA.1%T TOPICAL
[2017-06-17 10:15] VITALS: BP 224/102; PULSE 91; RESP 16; TEMP 99.5; O2SAT 98
[2017-06-17] MEDS ORDERED: ASPIRIN 81 MG CHEW TAB PO ONE (10:15)
[2017-06-17] MEDS ORDERED: SODIUM CHLORIDE 0.9% FLUSH 10 ML FLUSH IVF PRN (10:15)
[2017-06-17 10:23] VITALS: BP 224/102; PULSE 89; RESP 12; O2SAT 93
--- NOTE | 2017-06-17 10:33 | RADRPT ---
EXAM DATE/TIME: 06/17/2017 10:25 [facility] COMPARISON: CHEST SINGLE AP, February 19, 2017, 16:16. INDICATIONS : Patient states chest pains. MEDICAL HISTORY : Diabetes mellitus type II. Renal failure, chronic. Cardiovascular disease. Dialysis SURGICAL HISTORY : Cholecystectomy. ENCOUNTER: Initial ACUITY: 1 day PAIN SCORE: 9/10 LOCATION: Bilateral chest FINDINGS: A single view of the chest demonstrates diminished lung volumes and patchy bibasilar densities. Small right pleural effusion. Osseous structures are intact. CONCLUSION: 1. Bibasilar patchy densities. 2. Small right pleural effusion. Osvaldo Wagner MD on June 17, 2017 at 10:28 Board Certified Radiologist. This report was verified electronically.
[2017-06-17] MEDS ORDERED: NITROGLYCERIN 2% OINT 1 GM PACKET TOP ONE (10:45)
[2017-06-17] MEDS ORDERED: MORPHINE SULFATE 4 MG/ML INJ IV PUSH ONE ×2 (10:45→13:15)
[2017-06-17] MEDS: METOPROLOL TARTRATE 5 MG/5 ML VIAL IVS SCH ×3 (10:45→10:55)
[2017-06-17] MEDS ORDERED: LORazepam 2 MG/ML VIAL IV PUSH ONE (10:45)
[2017-06-17 11:08] VITALS: BP 180/77; PULSE 90; RESP 14; O2SAT 95
[2017-06-17] MEDS ORDERED: LISI-515 PO (11:14)
[2017-06-17] MEDS ORDERED: CORE25TA PO (11:14)
[2017-06-17] MEDS ORDERED: APIX2.5T PO (11:14)
[2017-06-17] MEDS ORDERED: GABA400C5 PO (11:14)
[2017-06-17] MEDS ORDERED: AMLO10 PO (11:14)
[2017-06-17] MEDS ORDERED: METOPROLOL TARTRATE 50 MG TAB PO ONE (11:15)
--- NOTE | 2017-06-17 11:18 | PD ---
HPI . Chest pain Chief Complaint: Chest Pain Time Seen by Provider: 10:11 Travel History International Travel<30 days: No Contact w/Intl Traveler<30days: No Traveled to known affect area: No History of Present Illness HPI This patient presents with a chief complaint of chest pain. Onset was last night. She describes pain in the left side of her chest and her left shoulder which is getting progressively worse. She describes the pain as a dull, achy pain which she rates 10/10. Pain is exacerbated by breathing. No relieving factor. Associated symptoms include one episode of emesis and shortness of breath. She also reports mild diaphoresis. This patient has end stage renal disease on dialysis. She was supposed to go to dialysis today but did not. PFSH Past Medical History Hx Anticoagulant Therapy: Yes (Eliquis) Arthritis: No Asthma: No Autoimmune Disease: No Blood Disorders: No Anxiety: No Depression: Yes Heart Rhythm Problems: No Cancer: No Cardiac Catheterization: Yes Cardiovascular Problems: Yes High Cholesterol: Yes Chemotherapy: No Chest Pain: No Congestive Heart Failure: No COPD: No Cerebrovascular Accident: No Diabetes: Yes Patient Takes Glucophage: No Dialysis: Yes (-W-) Diminished Hearing: No Endocrine: No Gastrointestinal Disorders: Yes (REFLUX) GERD: No Glaucoma: No Genitourinary: Yes Headaches: Yes Hepatitis: No Hiatal Hernia: No Heparin Induced Thrombocytopen: No Hypertension: Yes Immune Disorder: No Kidney Stones: No Medical other: Yes (ANEMIA) Musculoskeletal: Yes Neurologic: Yes Psychiatric: Yes Reproductive: Yes (previous miscarriage ) Respiratory: Yes (PNEUMONIA) Immunizations Current: Yes Migraines: Yes Myocardial Infarction: No Radiation Therapy: No 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) Seizures: No Sickle Cell Disease: No Sleep Apnea: No Thyroid Disease: No Ulcer: No Influenza Vaccination: Yes ?: Not : 2 Para: 2 Ovarian Cysts: Yes (RIGHT OOPHRECTOMY) Past Surgical History Abdominal Surgery: Yes (Cholecystectomy) AICD: No Arteriovenous Shunt: No Cardiac Surgery: No Cholecystectomy: Yes Ear Surgery: No Endocrine Surgery: No Eye Surgery: Yes Genitourinary Surgery: No Gynecologic Surgery: Yes (RIGHT OOPHERECTOMY) Insulin Pump: No Joint Replacement: No Oral Surgery: Yes (TEETH EXTRACTED) Pacemaker: No Thoracic Surgery: No Tonsillectomy: Yes Other Surgery: Yes Social History Alcohol Use: No Tobacco Use: Yes (2 CIGS/DAY) Substance Use: Yes (marijuana ) Allergies-Medications (Allergen,Severity, Reaction): Coded Allergies: codeine (Verified Allergy, Severe, HYPERACTIVITY &ITCH, 06/17/17) iodine (Verified Allergy, Severe, TOPICAL/ITCH, 06/17/17) potassium iodide (Verified Allergy, Severe, TOPICAL/ITCH, 06/17/17) povidone-iodine (Verified Allergy, Severe, TOPICAL/ITCH, 06/17/17) sodium iodide (Verified Allergy, Severe, TOPICAL/ITCH, 06/17/17) sodium iodide (Verified Allergy, Severe, TOPICAL/ITCH, 06/17/17) iohexol (Verified Allergy, Intermediate, HIVES, 06/17/17) Pork/Porcine Containing Products (Verified Allergy, Unknown, 06/17/17) penicillin G (Verified Allergy, Unknown, 06/17/17) Reported Meds & Prescriptions Reported Meds & Active Scripts Active Nicotine Patch (Nicotine) 21 Mg/24 Hr Patch 21 Mg T-DERMAL DAILY Plavix (Clopidogrel Bisulfate) 75 Mg Tab 75 Mg PO DAILY Lantus Solostar Pen Inj (Insulin Glargine) 300 Unit/3 Ml Pen 25 Units SQ BID Cipro (Ciprofloxacin HCl) 250 Mg Tab 750 Mg PO DAILY 28 Days Vitamin D3 (Cholecalciferol) 5,000 Unit Cap 5,000 Units PO DAILY Omeprazole 40 Mg Cap 40 Mg PO DAILY Reported Lisinopril 20 Mg Tab 20 Mg PO BID Norvasc (Amlodipine Besylate) 10 Mg Tab 10 Mg PO DAILY Eliquis (Apixaban) 2.5 Mg Tab 2.5 Mg PO BID Coreg (Carvedilol) 25 Mg Tab 25 Mg PO BID Gabapentin 400 Mg Cap 400 Cap PO TID Trazodone (Trazodone HCl) 50 Mg Tab 50 Mg PO HS Sertraline (Sertraline HCl) 100 Mg Tab 100 Mg PO DAILY Nephro-Lory (B-Complex W/ C & Folic Acid) 1 Tab 1 Tab PO DAILY Colace (Docusate Sodium) 100 Mg Capsule 100 Mg BID Review of Systems Except as stated in HPI: all other systems reviewed are Neg General / Constitutional: Positive: Other (mild diaphoresis), No: Fever, Chills Cardiovascular: Positive: Chest Pain or Discomfort Respiratory: Positive: Shortness of Breath Gastrointestinal: Positive: Nausea, Vomiting Physical Exam Narrative GENERAL: This patient is anxious appearing SKIN: warm/dry. HEAD: Normocephalic. Atraumatic. EYES: Pupils equal and round. No scleral icterus. No injection or drainage. ENT: No nasal bleeding or discharge. Mucous membranes pink and moist. NECK: Trachea midline. Full range of motion without pain.. CARDIOVASCULAR: Regular rate and rhythm. Heart sounds normal. RESPIRATORY: No accessory muscle use. Clear to auscultation. Breath sounds equal bilaterally. Positive chest wall tenderness. GASTROINTESTINAL: Abdomen soft. Nontender. Bowel sounds present. Nondistended. MUSCULOSKELETAL: No obvious deformities. NEUROLOGICAL: Awake and alert. No obvious cranial nerve deficits. Motor grossly within normal limits. Normal speech. PSYCHIATRIC: Anxious mood and affect; insight and judgment normal. Data Data Last Documented VS Vital Signs Date Time Temp Pulse Resp B/P (MAP) Pulse Ox O2 Delivery O2 Flow Rate FiO2 06/17/17 12:09 93 14 167/68 (101) 96 Nasal Cannula 3.00 06/17/17 10:15 99.5 Orders Orders Electrocardiogram (06/17/17 10:11) Basic Metabolic Panel (Bmp) (06/17/17 10:11) Ckmb (Isoenzyme) Profile (06/17/17 10:11) Complete Blood Count With Diff (06/17/17 10:11) Magnesium (Mg) (06/17/17 10:11) Prothrombin Time / Inr (Pt) (06/17/17 10:11) Act Partial Throm Time (Ptt) (06/17/17 10:11) Troponin I (06/17/17 10:11) Chest, Single Ap (06/17/17 10:11) Ecg Monitoring (06/17/17 10:11) Iv Access Insert/Monitor (06/17/17 10:11) Oximetry (06/17/17 10:11) Aspirin Chew (Aspirin Chew) (06/17/17 10:15) Sodium Chloride 0.9% Flush (Ns Flush) (06/17/17 10:15) Morphine Inj (Morphine Inj) (06/17/17 10:45) Nitroglycerin 2% Oint (Nitroglycerin 2% (06/17/17 10:45) Metoprolol Tartrate Inj (Lopressor Inj) (06/17/17 10:45) Lorazepam Inj (Ativan Inj) (06/17/17 10:45) Vascular Access Team Consult/P PRN (06/17/17 10:45) Vascular Poc Ultrasound (06/17/17 ) Metoprolol Tartrate (Lopressor) (06/17/17 11:15) CKMB (06/17/17 11:35) CKMB% (06/17/17 11:35) Potassium, Serum (K) (06/17/17 12:30) Sodium Polysty Sulfate Liq (Kayexalate L (06/17/17 12:30) Morphine Inj (Morphine Inj) (06/17/17 13:15) Insulin Human Regular Inj (Novolin R Inj (06/17/17 13:30) Sodium Bicarb 4.2% (Inf) Inj (Sodium Bic (06/17/17 13:30) Calcium Gluconate Inj (Calcium Gluconate (06/17/17 13:30) Blood Flow Rate (06/17/17 13:27) Dialysate Flow Rate (06/17/17 13:27) Dialyzer (06/17/17 13:27) Concentrate (06/17/17 13:27) Acid Concentrate (06/17/17 13:27) Length Of Dialysis (06/17/17 13:27) Frequency Of Dialysis (06/17/17 13:27) Dialysis Obtain (06/17/17 13:27) Needle Size (06/17/17 13:27) Dialysis Schedule (06/17/17 13:27) Resp Oxygen Renaldo C Titrat 1-4 L (06/17/17 ) Dialysis Weight (06/17/17 13:27) ^ Obtain As Needed (06/17/17 13:27) Sodium Chlor 0.9% 1000 Ml Inj (Ns 1000 M (06/17/17 13:27) Heparin Inj (Heparin Inj) (06/17/17 13:30) Sodium Chlor 0.9% 1000 Ml Inj (Ns 1000 M (06/17/17 13:27) Sodium Chlor 0.9% 1000 Ml Inj (Ns 1000 M (06/17/17 13:27) Mannitol Inj (Mannitol Inj) (06/17/17 13:30) Albumin 25% Inj (Albumin 25% Inj) (06/17/17 13:30) Sodium Chloride 0.9% Flush (Ns Flush) (06/17/17 13:30) Heparin Inj (Heparin Inj) (06/17/17 13:30) Gentamicin (Dialysis) Inj (Gentamicin (D (06/17/17 13:30) Ondansetron Inj (Zofran Inj) (06/17/17 13:30) Acetaminophen (Tylenol) (06/17/17 13:30) Diphenhydramine (Benadryl) (06/17/17 13:30) Nitroglycerin Sl (Nitrostat Sl) (06/17/17 13:30) Clonidine (Catapres) (06/17/17 13:30) Epoetin Duncan Inj (Epogen Inj) (06/17/17 13:30) Gelatin 12 Mm/7 Mm Top (Gelfoam 12 Mm/7 (06/17/17 13:30) Consult Nephrology (06/17/17 ) Admit Order (Ed Use Only) (06/17/17 13:27) Labs Laboratory Tests Test 06/17/17 11:35 06/17/17 12:45 White Blood Count 4.9 TH/MM3 Red Blood Count 3.69 MIL/MM3 Hemoglobin 11.7 GM/DL Hematocrit 35.6 % Mean Corpuscular Volume 96.6 FL Mean Corpuscular Hemoglobin 31.8 PG Mean Corpuscular Hemoglobin Concent 32.9 % Red Cell Distribution Width 17.1 % Platelet Count 340 TH/MM3 Mean Platelet Volume 8.1 FL Neutrophils (%) (Auto) 82.0 % Lymphocytes (%) (Auto) 9.7 % Monocytes (%) (Auto) 6.4 % Eosinophils (%) (Auto) 0.9 % Basophils (%) (Auto) 1.0 % Neutrophils # (Auto) 4.0 TH/MM3 Lymphocytes # (Auto) 0.5 TH/MM3 Monocytes # (Auto) 0.3 TH/MM3 Eosinophils # (Auto) 0.0 TH/MM3 Basophils # (Auto) 0.1 TH/MM3 CBC Comment DIFF FINAL Differential Comment Prothrombin Time 12.7 SEC Prothromb Time International Ratio 1.1 RATIO Activated Partial Thromboplast Time 22.2 SEC Blood Urea Nitrogen 56 MG/DL Creatinine 10.09 MG/DL Random Glucose 384 MG/DL Calcium Level 9.3 MG/DL Magnesium Level 2.3 MG/DL Sodium Level 127 MEQ/L Potassium Level 7.2 MEQ/L 6.1 MEQ/L Chloride Level 91 MEQ/L Carbon Dioxide Level 21.7 MEQ/L Anion Gap 14 MEQ/L Estimat Glomerular Filtration Rate 4 ML/MIN Total Creatine Kinase 134 U/L Creatine Kinase MB 1.2 NG/ML Troponin I 0.02 NG/ML MDM Medical Decision Making Medical Screen Exam Complete: Yes Emergency Medical Condition: Yes Interpretation(s) EKG shows a sinus rhythm with no ST segment elevation or depression. Differential Diagnosis Differential diagnosis of chest pain includes but is not limited to musculoskeletal pain, pulmonary embolism, acute coronary syndrome, pneumonia, pleurisy Narrative Course This patient presents with chest pain. She has chest wall tenderness. She has a history of hypertension, diabetes, CHF and end-stage renal disease. Last Impressions Chest X-Ray 06/17/17 1011 Signed Impressions: Service Date/Time: Saturday, June 17, 2017 10:25 - CONCLUSION: 1. Bibasilar patchy densities. 2. Small right pleural effusion. Osvaldo Wagner MD The chest x-ray was independently viewed by me. CBC Diagram 06/17/17 11:35 BMP Diagram 06/17/17 11:35 Calcium Level 9.3, Magnesium Level 2.3 06/17/17 12:45 CKMB 1.2 trop 0.02 Her initial was hemolyzed. I went ahead and gave her a dose of Kayexalate while checking a second her second potassium is 6.1. I have subsequently ordered insulin car and calcium. I have not ordered D50 because her glucose is 384. We will check her fingerstick blood sugar in an hour. This patient needs to be admitted to the hospital for further evaluation of her chest pain and for treatment of her hyperkalemia. Critical Care Narrative Aggregate critical care time was 45 minutes. Time to perform other separately billable procedures was not included in the critical care time. My time did not include minutes spent treating any other patients simultaneously or on activities that did not directly contribute to the patient's treatment. The services I provided to this patient were to treat and/or prevent clinically significant deterioration due to hyperkalemia I provided critical care services requiring my management, as noted below: Chart data review, documentation time, medication orders and management, vital sign assessments/reviewing monitor data, ordering and reviewing lab tests, ordering and interpreting/reviewing x-rays and diagnostic studies, care of the patient and discussion of the patient with the admitting physicians Diagnosis Primary Impression: Chest pain Qualified Codes: R07.9 - Chest pain, unspecified Additional Impressions: Hyperkalemia ESRD (end stage renal disease) on dialysis Admitting Information Admitting Physician Requests: Admit Condition: Stable Irene Cohen MD Jun 17, 2017 11:17
--- NOTE | 2017-06-17 11:45 | EKG ---
Date Performed: 06/17/2017 Time Performed: 10:18:00 PTAGE: 47 years EKG: Sinus rhythm NORMAL ECG PREVIOUS TRACING : 05/22/2017 19.42 No significant change from previous tracing noted. DOCTOR: Jose Antonio Hogue Interpretating Date/Time 06/17/2017 11:43:55
[2017-06-17 11:55] LABS: BASOPHIL # 0.1 TH/MM3 (0-0.2); EOSINOPHIL % 0.9 % (0.0-4.0); HEMATOCRIT 35.6 % (35.0-46.0); HEMO FLAGS DIFF FINAL; LYMPH % 9.7 % (9.0-44.0); LYMPHOCYTE # 0.5 TH/MM3 (1.0-4.8); MEAN CELL VOLUME 96.6 FL (80.0-100.0); MEAN CORPUSCULAR HEMOGLOBIN 31.8 PG (27.0-34.0); MEAN CORPUSCULAR HGB CONC 32.9 % (32.0-36.0); MONO % 6.4 % (0.0-8.0); PLATELET COUNT 340 TH/MM3 (150-450); RED BLOOD COUNT 3.69 MIL/MM3 (4.00-5.30); RED CELL DISTRIBUTION WIDTH 17.1 % (11.6-17.2); WHITE BLOOD COUNT 4.9 TH/MM3 (4.0-11.0)
[2017-06-17 12:04] LABS: APTT (PATIENT) 22.2 SEC (24.3-30.1); INTERNATIONAL NORMALIZED RATIO 1.1 RATIO; PROTHROMBIN TIME - PATIENT 12.7 SEC (9.8-11.6)
[2017-06-17 12:09] VITALS: BP 167/68; PULSE 93; RESP 14; O2SAT 96
[2017-06-17 12:24] LABS: ANION GAP 14 MEQ/L (5-15); BICARBONATE 21.7 MEQ/L (21.0-32.0); BLOOD UREA NITROGEN 56 MG/DL (7-18); CHLORIDE 91 MEQ/L (98-107); CREATINE KINASE 134 U/L (26-192); GLOMERULAR FILTRATION RATE 4 ML/MIN (>89); MAGNESIUM 2.3 MG/DL (1.5-2.5); SODIUM (NA) 127 MEQ/L (136-145)
[2017-06-17 12:30] LABS: POTASSIUM 7.2 MEQ/L (3.5-5.1)
[2017-06-17] MEDS ORDERED: SODIUM POLYSTYRENE SULFONATE SUSP 15 GM/60 ML CUP PO ONE (12:30)
[2017-06-17 12:49] LABS: CKMB 1.2 NG/ML (0.5-3.6)
[2017-06-17] MEDS ORDERED: SODIUM CHLOR 0.9% 1000 ML INJ 1,000 ML OTHER PRN ×2 (13:27)
[2017-06-17] MEDS ORDERED: SODIUM CHLOR 0.9% 1000 ML INJ 1,000 ML IV PRN (13:27)
--- NOTE | 2017-06-17 13:29 | PD.CONS ---
HPI Service Nephrology Consult Requested By Dr. Cohen Reason for Consult End-stage renal disease Primary Care Physician Unknown History of Present Illness Patient is a 47-year-old the female with history of end-stage renal disease, diabetes, blindness, peripheral vascular disease, calciphylaxis, ischemic left foot, previous right BKA who has recently admitted with the chest pain she's described the pain in the left side radiating to his left shoulder, patient has similar complaints a few weeks ago, and was discharged after workup She goes to dialysis on Saturday, Saturday and Saturday Follows with Dr. Mason Review of Systems Constitutional: COMPLAINS OF: Fatigue Respiratory: COMPLAINS OF: Shortness of breath Cardiovascular: COMPLAINS OF: Chest pain, Dyspnea on Exertion Musculoskeletal: COMPLAINS OF: Joint pain, Muscle aches, Stiffness, Joint Swelling Integumentary: COMPLAINS OF: Abnormal pigmentation, Pruritus Psychiatric: COMPLAINS OF: Anxiety Past Family Social History Allergies: Coded Allergies: codeine (Verified Allergy, Severe, HYPERACTIVITY &ITCH, 06/17/17) iodine (Verified Allergy, Severe, TOPICAL/ITCH, 06/17/17) potassium iodide (Verified Allergy, Severe, TOPICAL/ITCH, 06/17/17) povidone-iodine (Verified Allergy, Severe, TOPICAL/ITCH, 06/17/17) sodium iodide (Verified Allergy, Severe, TOPICAL/ITCH, 06/17/17) sodium iodide (Verified Allergy, Severe, TOPICAL/ITCH, 06/17/17) iohexol (Verified Allergy, Intermediate, HIVES, 06/17/17) Pork/Porcine Containing Products (Verified Allergy, Unknown, 06/17/17) penicillin G (Verified Allergy, Unknown, 06/17/17) Past Medical History ESRD Diabetes Ischemic foot Peripheral vascular disease Hypertension Noncompliant Abdominal pain previous amputation right leg Diabetic retinopathy with blindness Past Surgical History Right BKA AV fistula Left ischemic leg status post angioplasty Cholecystectomy Right upper extremity fistula Right oophorectomy due to ovarian cyst Dental extractions Tonsillectomy Reported Medications Reported Meds & Active Scripts Active Nicotine Patch (Nicotine) 21 Mg/24 Hr Patch 21 Mg T-DERMAL DAILY Plavix (Clopidogrel Bisulfate) 75 Mg Tab 75 Mg PO DAILY Lantus Solostar Pen Inj (Insulin Glargine) 300 Unit/3 Ml Pen 25 Units SQ BID Cipro (Ciprofloxacin HCl) 250 Mg Tab 750 Mg PO DAILY 28 Days Vitamin D3 (Cholecalciferol) 5,000 Unit Cap 5,000 Units PO DAILY Omeprazole 40 Mg Cap 40 Mg PO DAILY Reported Lisinopril 20 Mg Tab 20 Mg PO BID Norvasc (Amlodipine Besylate) 10 Mg Tab 10 Mg PO DAILY Eliquis (Apixaban) 2.5 Mg Tab 2.5 Mg PO BID Coreg (Carvedilol) 25 Mg Tab 25 Mg PO BID Gabapentin 400 Mg Cap 400 Cap PO TID Trazodone (Trazodone HCl) 50 Mg Tab 50 Mg PO HS Sertraline (Sertraline HCl) 100 Mg Tab 100 Mg PO DAILY Nephro-Lory (B-Complex W/ C & Folic Acid) 1 Tab 1 Tab PO DAILY Colace (Docusate Sodium) 100 Mg Capsule 100 Mg BID Active Ordered Medications Current Medications Medications (Trade) Dose Ordered Sig/Jen Route Start Time Stop Time Status Last Admin (NS Flush) 2 ml UNSCH PRN IVF 06/17/17 10:15 Sodium Chloride 1,000 ml @ 0 mls/hr Q0M PRN OTHER 06/17/17 13:27 (Heparin Inj) 8,000 units UNSCH PRN IV FLUSH 06/17/17 13:30 Sodium Chloride 1,000 ml @ 200 mls/hr Q5H PRN IV 06/17/17 13:27 Sodium Chloride 1,000 ml @ 0 mls/hr Q0M PRN OTHER 06/17/17 13:27 (Mannitol Inj) 12.5 gm UNSCH PRN IV 06/17/17 13:30 Albumin Human 100 ml @ 60 mls/hr UNSCH PRN IV 06/17/17 13:30 (NS Flush) 5 ml UNSCH PRN IV FLUSH 06/17/17 13:30 (Heparin Inj) UNSCH PRN .XX 06/17/17 13:30 (Gentamicin (Dialysis) Inj) 20 mg UNSCH PRN OTHER 06/17/17 13:30 (Zofran Inj) 4 mg UNSCH PRN IV PUSH 06/17/17 13:30 (Tylenol) 650 mg UNSCH PRN PO 06/17/17 13:30 (Benadryl) 25 mg UNSCH PRN PO 06/17/17 13:30 (Nitrostat Sl) 0.4 mg UNSCH PRN SL 06/17/17 13:30 (Catapres) 0.1 mg UNSCH PRN PO 06/17/17 13:30 (Epogen Inj) 4,000 units UNSCH PRN IV PUSH 06/17/17 13:30 (Gelfoam 12 Mm/7 Mm Top) 1 foam UNSCH PRN TOP 06/17/17 13:30 Sodium Thiosulfate 61892 mg/Sterile Water 200 ml @ 150 mls/hr WITH DIALYSIS PRN IV 06/17/17 13:30 (NS Flush) 2 ml UNSCH PRN IV FLUSH 06/17/17 14:45 (NS Flush) 2 ml BID IV FLUSH 06/17/17 21:00 (Zofran Inj) 4 mg Q6H PRN IVP 06/17/17 18:00 (Narcan Inj) 0.4 mg UNSCH PRN IV PUSH 06/17/17 14:45 (Areli-Colace) 2 tab BID PO 06/17/17 21:00 (D50w (Vial) Inj) 50 ml UNSCH PRN IV PUSH 06/17/17 15:00 (Glucagon Inj) 1 mg UNSCH PRN OTHER 06/17/17 15:00 (NovoLOG SUPPLEMENTAL SCALE) 1 ACHS SLIDING SCALE SQ 06/17/17 17:00 (Norvasc) 10 mg DAILY PO 06/18/17 09:00 (Eliquis) 2.5 mg BID PO 06/17/17 21:00 (Coreg) 25 mg BID PO 06/17/17 21:00 (Vitamin D3) 5,000 units DAILY PO 06/18/17 09:00 (Plavix) 75 mg DAILY PO 06/18/17 09:00 (Zoloft) 100 mg DAILY PO 06/18/17 09:00 (Nephrocaps) 1 cap DAILY PO 06/18/17 09:00 (Protonix) 40 mg DAILY PO 06/17/17 15:00 06/17/17 15:04 (Tylenol) 500 mg Q6H PRN PO 06/17/17 18:00 Family History Noncontributory Social History Smokes cigarettes too sedated today and positive use of marijuana Physical Exam Vital Signs Vital Signs Date Time Temp Pulse Resp B/P (MAP) Pulse Ox O2 Delivery O2 Flow Rate FiO2 06/17/17 12:09 93 14 167/68 (101) 96 Nasal Cannula 3.00 11/6/17 11:08 90 14 180/77 (111) 95 Nasal Cannula 3.00 06/17/17 10:23 89 12 224/102 (142) 93 Nasal Cannula 3.00 06/17/17 10:15 99.5 91 16 224/102 (142) 98 Physical Exam GENERAL: Well-nourished, well-developed patient. SKIN: Warm and dry. HEAD: Normocephalic. EYES: No scleral icterus. No injection or drainage. NECK: Supple, trachea midline. No JVD or lymphadenopathy. CARDIOVASCULAR: Regular rate and rhythm without murmurs, gallops, or rubs. RESPIRATORY: Breath sounds diminished at bases GASTROINTESTINAL: Abdomen soft, mildly tender left side, nondistended. EXTREMITIES: Ischemic left foot right BKA AV fistula on the right arm NEUROLOGICAL: Awake, alert, and oriented x 3. Non-focal. Laboratory Laboratory Tests Test 06/17/17 11:35 06/17/17 12:45 White Blood Count 4.9 Red Blood Count 3.69 Hemoglobin 11.7 Hematocrit 35.6 Mean Corpuscular Volume 96.6 Mean Corpuscular Hemoglobin 31.8 Mean Corpuscular Hemoglobin Concent 32.9 Red Cell Distribution Width 17.1 Platelet Count 340 Mean Platelet Volume 8.1 Neutrophils (%) (Auto) 82.0 Lymphocytes (%) (Auto) 9.7 Monocytes (%) (Auto) 6.4 Eosinophils (%) (Auto) 0.9 Basophils (%) (Auto) 1.0 Neutrophils # (Auto) 4.0 Lymphocytes # (Auto) 0.5 Monocytes # (Auto) 0.3 Eosinophils # (Auto) 0.0 Basophils # (Auto) 0.1 CBC Comment DIFF FINAL Differential Comment Prothrombin Time 12.7 Prothromb Time International Ratio 1.1 Activated Partial Thromboplast Time 22.2 Blood Urea Nitrogen 56 Creatinine 10.09 Random Glucose 384 Calcium Level 9.3 Magnesium Level 2.3 Sodium Level 127 Potassium Level 7.2 6.1 Chloride Level 91 Carbon Dioxide Level 21.7 Anion Gap 14 Estimat Glomerular Filtration Rate 4 Total Creatine Kinase 134 Creatine Kinase MB 1.2 Troponin I 0.02 Result Diagram: 06/17/17 1135 06/17/17 1245 Imaging Last Impressions Chest X-Ray 06/17/17 1011 Signed Impressions: Service Date/Time: Saturday, June 17, 2017 10:25 - CONCLUSION: 1. Bibasilar patchy densities. 2. Small right pleural effusion. Osvaldo Wagner MD Assessment and Plan Problem List: (1) ESRD (end stage renal disease) on dialysis ICD Codes: N18.6 - End stage renal disease; Z99.2 - Dependence on renal dialysis Status: Chronic Plan: Patient appears to have volume overload we will check BNP Hemodialysis has been arranged Hyperkalemia for specimen was hemolyzed to be potassium is 6.1 Continue with fluid restriction She has calciphylaxis and received sodium thiosulfate (2) Hyperkalemia ICD Codes: E87.5 - Hyperkalemia Status: Resolved Plan: Hemodialysis planned (3) Calciphylaxis ICD Codes: E83.59 - Other disorders of calcium metabolism Status: Acute Plan: Continue with sodium thiosulfate (4) Peripheral vascular disease ICD Codes: I73.9 - Peripheral vascular disease, unspecified Status: Acute Plan: Had previous procedures done (5) Diabetes ICD Codes: E11.9 - Type 2 diabetes mellitus without complications Status: Chronic Plan: Monitor blood glucose (6) Hypertension ICD Codes: I10 - Essential (primary) hypertension Status: Acute Plan: Continue to monitor blood pressure (7) Chest pain ICD Codes: R07.9 - Chest pain, unspecified Status: Acute Plan: as above follow VQ scan Problem Qualifiers (1) Diabetes: (2) Hypertension: Qualified Codes: I10 - Essential (primary) hypertension (3) Chest pain: Qualified Codes: R07.9 - Chest pain, unspecified Gerri Gilbert MD Jun 17, 2017 13:29
[2017-06-17] MEDS ORDERED: HEPARIN SODIUM - IV 10,000 UNITS/10 ML VIAL PRN (13:30)
[2017-06-17] MEDS ORDERED: SODIUM BICARB 4.2% (INF) INJ 5 MEQ/10 ML SYR IV PUSH ONE (13:30)
[2017-06-17] MEDS ORDERED: MANNITOL 12.5 GM/50 ML VIAL IV PRN (13:30)
[2017-06-17] MEDS ORDERED: GENTAMICIN SULFATE (DIALYSIS USE ONLY) 20 MG/2 ML VIAL OTHER PRN (13:30)
[2017-06-17] MEDS ORDERED: ONDANSETRON HCL 4 MG/2 ML VIAL IV PUSH PRN (13:30)
[2017-06-17] MEDS ORDERED: ACETAMINOPHEN 325 MG TAB PO PRN (13:30)
[2017-06-17] MEDS ORDERED: SODIUM CHLORIDE 0.9% FLUSH 10 ML FLUSH IV FLUSH PRN ×2 (13:30→14:45)
[2017-06-17] MEDS ORDERED: INSULIN HUMAN REGULAR 1,000 UNITS/10 ML VIAL IV PUSH ONE (13:30)
[2017-06-17] MEDS ORDERED: CALCIUM GLUCONATE 10% 1 GM/10 ML VIAL IV PUSH ONE (13:30)
[2017-06-17] MEDS ORDERED: HEPARIN SODIUM - IV 10,000 UNITS/10 ML VIAL IV FLUSH PRN (13:30)
[2017-06-17] MEDS ORDERED: diphenhydrAMINE HCL 25 MG CAP PO PRN (13:30)
[2017-06-17] MEDS ORDERED: cloNIDine HCL 0.1 MG TAB PO PRN (13:30)
[2017-06-17] MEDS ORDERED: NITROGLYCERIN 0.4 MG SL 25 TABS/BTL SL PRN (13:30)
[2017-06-17] MEDS ORDERED: SODIUM BICARBONATE 8.4% INJ 50 MEQ/50 ML SYR IV PUSH ONE (13:45)
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
[2017-06-17 14:33] VITALS: BP 138/63; PULSE 96; RESP 16; O2SAT 95
[2017-06-17] MEDS ORDERED: NALOXONE HCL 0.4 MG/ML AMP IV PUSH PRN (14:45)
--- NOTE | 2017-06-17 14:46 | HHI.FPPN ---
Subjective Remarks pt. seen, examined and discussed with the medicine team. This is a 46 you female with renal failure, diabetes mellitus, blindness, dystrophic calcinosis and right BKA who normally gets dialysis at [facility] in [place] on Mondays, Wednesdays and Fridays. Has missed her dialysis today. Today she is complaining of left central chest pain and left upper arm pain as well and LLQ abdominal pain. The chest and arm pain are dull and achy, 8:10, seems to come and go but never completely clears. She is nonambulatory, in wheelchair. She is near tears with the pain. She smokes Black & Mild 2 puffs daily, uses marijuana every day, no other illicits. Lives at home with her Mom, her PCP is [facility] at [facility] and her hitting coach is Dr. Hoover Right BKA for gangrene, has had right oophorectomy, gallbladder surgery, T&A, splenic infarction. Has had pneumonia vaccinations. She requests full code status. Does not have formal advance directives. Please see History and Physical examination for this admission for additional historical details including past, family, social history and review of systems. Objective Vitals Vital Signs Date Time Temp Pulse Resp B/P (MAP) Pulse Ox O2 Delivery O2 Flow Rate FiO2 06/17/17 12:09 93 14 167/68 (101) 96 Nasal Cannula 3.00 06/17/17 11:08 90 14 180/77 (111) 95 Nasal Cannula 3.00 06/17/17 10:23 89 12 224/102 (142) 93 Nasal Cannula 3.00 06/17/17 10:15 99.5 91 16 224/102 (142) 98 Result Diagram: 06/17/17 1135 06/17/17 1245 Other Results Laboratory Tests Test 06/17/17 11:35 06/17/17 12:45 White Blood Count 4.9 TH/MM3 Red Blood Count 3.69 MIL/MM3 Hemoglobin 11.7 GM/DL Hematocrit 35.6 % Mean Corpuscular Volume 96.6 FL Mean Corpuscular Hemoglobin 31.8 PG Mean Corpuscular Hemoglobin Concent 32.9 % Red Cell Distribution Width 17.1 % Platelet Count 340 TH/MM3 Mean Platelet Volume 8.1 FL Neutrophils (%) (Auto) 82.0 % Lymphocytes (%) (Auto) 9.7 % Monocytes (%) (Auto) 6.4 % Eosinophils (%) (Auto) 0.9 % Basophils (%) (Auto) 1.0 % Neutrophils # (Auto) 4.0 TH/MM3 Lymphocytes # (Auto) 0.5 TH/MM3 Monocytes # (Auto) 0.3 TH/MM3 Eosinophils # (Auto) 0.0 TH/MM3 Basophils # (Auto) 0.1 TH/MM3 CBC Comment DIFF FINAL Differential Comment Prothrombin Time 12.7 SEC Prothromb Time International Ratio 1.1 RATIO Activated Partial Thromboplast Time 22.2 SEC Blood Urea Nitrogen 56 MG/DL Creatinine 10.09 MG/DL Random Glucose 384 MG/DL Calcium Level 9.3 MG/DL Magnesium Level 2.3 MG/DL Sodium Level 127 MEQ/L Potassium Level 7.2 MEQ/L 6.1 MEQ/L Chloride Level 91 MEQ/L Carbon Dioxide Level 21.7 MEQ/L Anion Gap 14 MEQ/L Estimat Glomerular Filtration Rate 4 ML/MIN Total Creatine Kinase 134 U/L Creatine Kinase MB 1.2 NG/ML Troponin I 0.02 NG/ML Imaging Last 24 hours Impressions Chest X-Ray 06/17/17 1011 Signed Impressions: Service Date/Time: Saturday, June 17, 2017 10:25 - CONCLUSION: 1. Bibasilar patchy densities. 2. Small right pleural effusion. Osvaldo Wagner MD Objective Remarks O. CONSTITUTIONAL/GEN: normally nourished, in distress with chest, arm and abdominal pain. EYES: conjunctiva normal, EOMI. ENT: Mouth and pharynx normal. Edentulous. NECK: lymphadenopathy LUNGS: poor respiratory excursion CARDIOVASCULAR: RR without murmur or gallop. No significant edema. GI/ABD: Obese, scattered bowel sounds, tender to light palpation LLQ. NEURO: Sensation intact left foot. SKIN: Hyperpigmentation face with open lesions chin from calcinosis. Hyperpigmentation distal left lower extremity. HEME/LYMPH: no bruising, petechia or significant adenopathy MUSC: Amputation status right BKA. PSYCH/MENTAL STATUS: Alert and oriented x 3. A/P Assessment and Plan Chest, arm and abdominal pain in a 46 yo blind female with end-stage renal disease. See orders. Will obtain V/Q scan and dialysis today. Has been seen by Dr. Gilbert. Discharge Planning Case management to assist. Attending Attestation Patient seen and examined. Case reviewed and discussed with the resident team. Agree with plan of care as discussed with me and documented in the resident note. Renetta Real MD Jun 17, 2017 14:46
[2017-06-17] MEDS ORDERED: GLUCAGON 1 MG/ML VIAL OTHER PRN (15:00)
[2017-06-17] MEDS ORDERED: DEXTROSE 50% IN WATER 50 ML VIAL(D50) IV PUSH PRN (15:00)
[2017-06-17] MEDS: PANTOPRAZOLE SOD 40 MG DELAYED RELEASE TAB PO SCH (15:04)
[2017-06-17 15:47] LABS: BETA HCG QUANT 4 MIU/ML (0-5)
--- NOTE | 2017-06-17 16:47 | RADRPT ---
EXAM DATE/TIME: 06/17/2017 16:03 [facility] COMPARISON: CHEST SINGLE AP, June 17, 2017, 10:25. LUNG VENTILATION & PERFUSION SCAN, February 13, 2011, 21:33. INDICATIONS : Substernal chest pain with dyspnea. DOSE: 8.7 mCi Tc99m MAA IV 0.8 mCi Tc99m DTPA aerosol MEDICAL HISTORY : Hypertension. Diabetes mellitus type 2. Renal disease, end stage. Coronary artery disease. SURGICAL HISTORY : Cholecystectomy. Tonsillectomy. Oopherectomy. ENCOUNTER: Initial ACUITY: 1 day PAIN SCALE: 6/10 LOCATION: Left chest TECHNIQUE: Following five minutes of tidal breathing of DTPA aerosol, planar images of the lungs were performed in eight projections. The patient was then injected with MAA, and eight-view perfusion scan was perf ormed. FINDINGS: There is some central trapping on the ventilatory sequence with no ventilatory defect The perfusion lung scan demonstrates a homogenous pattern of uptake in both lungs. No segmental or s ubsegmental defects are seen. CONCLUSION: 1. Central trapping on the ventilatory images. Nonspecific but can be seen in COPD. 2. Otherwise, low probability scan for pulmonary embolus. Dennis Trimble MD on June 17, 2017 at 16:41 Board Certified Radiologist. This report was verified electronically.
[2017-06-17] MEDS: EPOETIN ALFA 10,000 UNITS/ML VIAL IV PUSH PRN (17:15)
[2017-06-17] MEDS: GELATIN 12 MM/7 MM FOAM TOP PRN (17:15)
[2017-06-17] MEDS: ALBUMIN 25% INJ 100 ML IV PRN (17:18)
[2017-06-17] MEDS: SODIUM THIOSULFATE INJ 25,000 MG in WATER STERILE FOR INJ 100 ML IV PRN (17:36)
[2017-06-17] MEDS ORDERED: ONDANSETRON HCL 4 MG/2 ML VIAL IVP PRN (18:00)
[2017-06-17] MEDS ORDERED: ACETAMINOPHEN 500 MG CPLT PO PRN (18:00)
[2017-06-17] MEDS ORDERED: GABAPENTIN 400 MG CAP PO SCH (18:00)
[2017-06-17] MEDS ORDERED: ACETAMINOPHEN/HYDROcodone 325 MG/5 MG TAB PO PRN (18:30)
[2017-06-17 20:35] VITALS: BP 123/58; PULSE 92; RESP 18; TEMP 99.1; O2SAT 96
[2017-06-17] MEDS: APIXABAN 2.5 MG TABLET PO SCH (20:51)
[2017-06-17] MEDS: SODIUM CHLORIDE 0.9% FLUSH 10 ML FLUSH IV FLUSH SCH (20:52)
[2017-06-17] MEDS: DOCUSATE SODIUM 50 MG/SENNA 8.6 MG TAB PO SCH (20:52)
[2017-06-17] MEDS: REMOVE OLD PATCH T-DERMAL SCH (20:52)
[2017-06-17] MEDS: CARVEDILOL 12.5 MG TAB PO SCH (20:52)
[2017-06-17] MEDS: INSULIN ASPART SUPPLEMENTAL SCALE SQ SCH ×2 (20:55→20:58)
[2017-06-17] MEDS ORDERED: LISINOPRIL 20 MG TAB PO SCH (21:00)
[2017-06-17] MEDS: ACETAMINOPHEN/HYDROcodone 325 MG/5 MG TAB PO PRN (21:08)
[2017-06-18] VITALS (9 sets, daily range): BP systolic 107–142; BP diastolic 49–69; PULSE 79–101; RESP 18–22; TEMP 97.6–99.2; O2SAT 91–98
[2017-06-18] MEDS: ACETAMINOPHEN/HYDROcodone 325 MG/5 MG TAB PO PRN ×3 (04:03→18:34)
[2017-06-18 04:08] LABS: HEMATOCRIT 30.9 % (35.0-46.0); MEAN CELL VOLUME 94.2 FL (80.0-100.0); MEAN CORPUSCULAR HEMOGLOBIN 31.3 PG (27.0-34.0); MEAN CORPUSCULAR HGB CONC 33.2 % (32.0-36.0); PLATELET COUNT 291 TH/MM3 (150-450); RED BLOOD COUNT 3.28 MIL/MM3 (4.00-5.30); RED CELL DISTRIBUTION WIDTH 17.1 % (11.6-17.2); REVIEW FLAG FINAL; WHITE BLOOD COUNT 9.4 TH/MM3 (4.0-11.0)
[2017-06-18 04:37] LABS: ALKALINE PHOSPHATASE 93 U/L (45-117); ALT (GPT) 10 U/L (10-53); ANION GAP 16 MEQ/L (5-15); AST (GOT) 10 U/L (15-37); BICARBONATE 24.6 MEQ/L (21.0-32.0); BLOOD UREA NITROGEN 37 MG/DL (7-18); CHLORIDE 93 MEQ/L (98-107); GLOMERULAR FILTRATION RATE 7 ML/MIN (>89); MAGNESIUM 2.1 MG/DL (1.5-2.5); POTASSIUM 4.8 MEQ/L (3.5-5.1); SODIUM (NA) 134 MEQ/L (136-145); TOTAL BILIRUBIN ADULT 0.5 MG/DL (0.2-1.0)
[2017-06-18] MEDS: SODIUM CHLORIDE 0.9% FLUSH 10 ML FLUSH IV FLUSH SCH ×2 (08:56→20:37)
[2017-06-18] MEDS: PANTOPRAZOLE SOD 40 MG DELAYED RELEASE TAB PO SCH (08:57)
[2017-06-18] MEDS: CHOLECALCIFEROL (VIT D3) 5000 UNIT CAP PO SCH (08:57)
[2017-06-18] MEDS: VITAMIN B CMPLX/VITC/FOLIC AC CAP PO SCH (08:57)
[2017-06-18] MEDS: APIXABAN 2.5 MG TABLET PO SCH ×2 (08:57→20:37)
[2017-06-18] MEDS: SERTRALINE HCL 100 MG TAB PO SCH (08:57)
[2017-06-18] MEDS: CIPROFLOXACIN 750 MG TAB PO SCH (08:58)
[2017-06-18] MEDS: DOCUSATE SODIUM 50 MG/SENNA 8.6 MG TAB PO SCH ×3 (08:58→20:36)
[2017-06-18] MEDS: CARVEDILOL 12.5 MG TAB PO SCH ×2 (08:58→20:36)
[2017-06-18] MEDS: NICOTINE 7 MG/24 HR PATCH T-DERMAL SCH (08:59)
[2017-06-18] MEDS ORDERED: CLOPIDOGREL 75 MG TAB PO SCH (09:00)
[2017-06-18] MEDS: INSULIN ASPART SUPPLEMENTAL SCALE SQ SCH ×5 (09:21→23:18)
--- NOTE | 2017-06-18 09:31 | RADRPT ---
EXAM DATE/TIME: 06/18/2017 08:33 [facility] COMPARISON: CHEST PA & LAT, May 29, 2017, 20:58. INDICATIONS : Chest pain, abdominal pain, and shortness of breath. MEDICAL HISTORY : Diabetes mellitus type II. Renal failure, chronic. Cardiovascular disease.Dialysis SURGICAL HISTORY : Cholecystectomy. ENCOUNTER: Subsequent ACUITY: 2 days PAIN SCORE: 9/10 LOCATION: Bilateral chest FINDINGS: Exaggerated kyphosis with low lung volumes. Linear right middle lobe and lingular airspace disease co nsistent with atelectasis. Redemonstration of stents in the right upper extremity. Cardiac silhouette is enlarged but stable. Remainder of the exam is unchanged. CONCLUSION: 1. Linear airspace disease in the right middle lobe and lingula consistent with atelectasis. Differen tial considerations include aspiration in the appropriate clinical setting. Capo Liu MD on June 18, 2017 at 9:22 Board Certified Radiologist. This report was verified electronically.
--- NOTE | 2017-06-18 12:08 | HHI.NPPN ---
Subjective History of Present Illness Patient is a 47-year-old the female with history of end-stage renal disease, diabetes, blindness, peripheral vascular disease, calciphylaxis, ischemic left foot, previous right BKA who has certainly admitted with the chest pain she's described the pain in the left side radiating to his left shoulder, patient has similar complaints a few weeks ago, and was discharged after workup She goes to dialysis on Saturday, Saturday and Saturday Additional Remarks no relief from CP Review of Systems Cardiovascular Cardiac: Chest Pain Objective Data Data Vital Signs Date Time Temp Pulse Resp B/P (MAP) Pulse Ox O2 Delivery O2 Flow Rate FiO2 06/18/17 09:18 95 Nasal Cannula 3.00 06/18/17 08:00 98.6 82 18 128/51 (76) 97 06/18/17 04:00 98.5 92 20 142/65 (90) 98 06/18/17 03:59 95 Nasal Cannula 3.00 06/18/17 02:07 20 06/18/17 00:00 99.2 97 22 132/64 (86) 94 06/17/17 20:35 99.1 92 18 123/58 (79) 96 06/17/17 15:42 06/17/17 14:33 96 16 138/63 (88) 95 Nasal Cannula 3.00 06/17/17 12:09 93 14 167/68 (101) 96 Nasal Cannula 3.00 -: 06/18/17 0350 06/18/17 0350 Microbiology 06/18/17 Aerobic Blood Culture, Received Pending 06/18/17 Anaerobic Blood Culture, Received Pending 06/18/17 Aerobic Blood Culture, Received Pending 06/18/17 Anaerobic Blood Culture, Received Pending Physical Exam General Appearance: Well Developed, Well Nourished Neck Neck Exam: Neck Supple Pulmonary Resp Exam: Clear Bilaterally, Breath Sounds Equal Cardiology CV Exam: Regular Gastrointestinal/Abdomen GI Exam: Soft, Non-Tender, Bowel Sounds Present Extremeties Extremities Exam: Trace Edema Extremeties Remarks ischemic l foot Assessment/Plan Problem List: (1) ESRD (end stage renal disease) on dialysis ICD Codes: N18.6 - End stage renal disease; Z99.2 - Dependence on renal dialysis Status: Chronic Plan: Patient had HD yesterday 4 L removed Hyperkalemia treated Continue with fluid restriction She has calciphylaxis and received sodium thiosulfate (2) Hyperkalemia ICD Codes: E87.5 - Hyperkalemia Status: Resolved Plan: Hemodialysis done (3) Calciphylaxis ICD Codes: E83.59 - Other disorders of calcium metabolism Status: Acute Plan: Continue with sodium thiosulfate (4) Peripheral vascular disease ICD Codes: I73.9 - Peripheral vascular disease, unspecified Status: Acute Plan: Had previous procedures done (5) Diabetes ICD Codes: E11.9 - Type 2 diabetes mellitus without complications Status: Chronic Plan: Monitor blood glucose (6) Hypertension ICD Codes: I10 - Essential (primary) hypertension Status: Acute Plan: Continue to monitor blood pressure Problem Qualifiers (1) Diabetes: (2) Hypertension: Qualified Codes: I10 - Essential (primary) hypertension Gerri Gilbert MD Jun 18, 2017 12:08
--- NOTE | 2017-06-18 13:17 | HHI.FPPN ---
Subjective Remarks Pt was sitting at the side of her bed, appeared in a lot of pain which she states is locate mostly in her mid-suprapubic area. She had two bowel movements between last night and this morning. (EkoLeena MD R2) Objective Vitals Vital Signs Date Time Temp Pulse Resp B/P (MAP) Pulse Ox O2 Delivery O2 Flow Rate FiO2 06/18/17 12:00 98.1 79 18 124/58 (80) 94 06/18/17 09:18 95 Nasal Cannula 3.00 06/18/17 08:00 98.6 82 18 128/51 (76) 97 06/18/17 04:00 98.5 92 20 142/65 (90) 98 06/18/17 03:59 95 Nasal Cannula 3.00 06/18/17 02:07 20 06/18/17 00:00 99.2 97 22 132/64 (86) 94 06/17/17 20:35 99.1 92 18 123/58 (79) 96 06/17/17 15:42 06/17/17 14:33 96 16 138/63 (88) 95 Nasal Cannula 3.00 I/O 06/17/17 06/17/17 06/17/17 06/18/17 06/18/17 06/18/17 07:00 15:00 23:00 07:00 15:00 23:00 Intake Total 250 ml 600 ml Output Total 4000 ml Balance -3750 ml 600 ml Intake Oral 600 ml IV Total 250 ml Output Hemodialysis 4000 ml # Bowel Movements 2 (EkoLeena MD R2) Result Diagram: 06/18/1734906/18/17 035 Objective Remarks O. CONSTITUTIONAL/GEN: normally nourished, looks very uncomfortable EYES: conjunctiva normal, EOMI. ENT: Mouth and pharynx normal. Edentulous. LUNGS: CTAB but poor effort CARDIOVASCULAR: RR without murmur or gallop. No significant edema. GI/ABD: Obese, tender to light palpation diffusely, worse in the mid- suprapubic area, LLQ, mid abdomen. NEURO: Sensation intact left foot. SKIN: Hyperpigmentation face with open forehead and chin lesions from calcinosis. Hyperpigmentation distal left lower extremity. HEME/LYMPH: no bruising, petechia or significant adenopathy MUSC: Amputation status right BKA. PSYCH/MENTAL STATUS: Alert and oriented x 3. (Leena Johnston MD R2) A/P Assessment and Plan 47-year-old female with a past medical history of end-stage renal disease, diabetes, hypertension, PAD, recently discharged from the hospital on 03 June where she was found to have an acute splenic infarction, presents with a one-day history of chest pain and left shoulder pain as well as elevated potassium and creatinine. She was admitted to the hospital for dialysis and ACS rule out. Discharge Planning Pending resolution of abdominal pain (Leena Johnston MD R2) Attending Attestation Patient seen and examined. Case reviewed and discussed with the resident team. Agree with plan of care as discussed with me and documented in the resident note. (Renetta Real MD) Problem List: (1) ESRD (end stage renal disease) on dialysis ICD Codes: N18.6 - End stage renal disease; Z99.2 - Dependence on renal dialysis Status: Chronic Plan: -Creatinine improved to 6.1 from 10.09 on admission after hemodialysis -Hemodialysis per nephrology recommendations, Dr. Gilbert on board (2) Hyperkalemia ICD Codes: E87.5 - Hyperkalemia Status: Resolved Plan: -Normal potassium today 4.8 down from 7.2 after dialysis -Dialysis as above (3) Chest pain ICD Codes: R07.9 - Chest pain, unspecified Status: Acute Plan: -PA and lateral chest x-ray on 06/18 shows linear S/P's disease in the right middle lobe and lingula consistent with atelectasis, aspiration in the differential -Troponin negative 3 -First EKG shows normal sinus rhythm with no indication of ACS, minimal ST depression on second EKG -Prior history of splenic infarct with pain that radiated to the shoulder during previous admission from May 22 to June 03, 2017 -VQ scan shows low probability of a PE (4) Abdominal pain, LUQ ICD Codes: R10.12 - Left upper quadrant pain Plan: -Patient was recently diagnosed with an acute splenic infarct -She is currently on Eliquis 2.5 mg by mouth twice a day -Current complaint of shoulder pain may be due to radiated pain from her abdomen -Due to increased pain complaints today, will order CT of abdomen. However, patient is allergic to Omnipaque and will require premedication with prednisone and Benadryl to begin at 7 PM today -[place] tablet prn pain, morphine IV when necessary breakthrough pain (5) History of bacteremia ICD Codes: Z87.898 - Personal history of other specified conditions Plan: -History of bacteremia with recurrent fever secondary to Enterococcus and Klebsiella on last admission -Patient was being treated for enterococcus bacteremia with vancomycin 1 g 3 times a week (MWF) after hemodialysis and Ciprofloxacin PO -Discussed with nephrology to arrange for IV vanco with HD -Continue Cipro 750mg PO daily to complete 28 days (6) Hypertension ICD Codes: I10 - Essential (primary) hypertension Status: Acute Plan: -Continue home medications: Amlodipine and Coreg, hold lisinopril until creatinine improves to baseline between 6 and 9 (7) Diabetes ICD Codes: E11.9 - Type 2 diabetes mellitus without complications Status: Chronic Plan: -On insulin glargine 25 units subcutaneous twice a day -Start glucose monitoring with sliding scale insulin -Used 12 units today 06/19 -December transition to Levemir based on glucose requirements (8) Peripheral vascular disease ICD Codes: I73.9 - Peripheral vascular disease, unspecified Status: Acute Plan: -Continue Plavix 75 mg by mouth daily (9) Calciphylaxis ICD Codes: E83.59 - Other disorders of calcium metabolism Status: Acute Plan: -Continue thiosulfate per nephrology (10) Tobacco abuse ICD Codes: Z72.0 - Tobacco use Status: Chronic Plan: -Nicotine patch 7 mg (11) Physical deconditioning ICD Codes: R53.81 - Other malaise Plan: -PT consulted to assist with ambulation and exercises (12) Chronic Medical Problems Plan: Diabetic neuropathy: Holding gabapentin 400 mg by mouth 3 times a day Hyperlipidemia: Continue Atorvastin, Pravastatin Anxiety/Depression: Continue sertraline 100 mg by mouth daily, holding trazodone 50 mg by mouth at bedtime due to sleepiness (13) FEN/DVT PPX/GI PPX/Nursing Orders Plan: Fluids: Oral fluids only, on hemodialysis Electrolytes: Will monitor and replace as needed Nutrition: NPO due to diffuse abdominal pain, otherwise renal diet DVT Prophylaxis: Unilateral SCDs, continue Eliquis 2.5 mg by mouth twice a day GI Prophylaxis: None currently PRN Medications Tylenol 650 mg by mouth every 4 hours when necessary pain 1-10 or temperature greater than 100.4F Zofran 4 mg IV push every 6 hours when necessary nausea vomiting [place] 325-5 mg 1 tab by mouth every 6 hours when necessary pain 5-7 [place] 325-10 mg 1 tab by mouth every 6 hours when necessary pain 8-10 Morphine 2 mg IV every 3 hours when necessary breakthrough pain -Vitals Q4h -Monitor I's and O's -Fall precautions -Neurochecks -Seizure precautions -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
--- NOTE | 2017-06-18 14:30 | RADRPT ---
EXAM DATE/TIME: 06/18/2017 13:38 [facility] COMPARISON: CT ABDOMEN & PELVIS W CONTRAST, May 26, 2017, 13:17. INDICATIONS : Severe left abdominal pain. MEDICAL HISTORY : Hypertension. Diabetes mellitus type 2. Renal disease, end stage. Coronary artery disease. SURGICAL HISTORY : Cholecystectomy. Tonsillectomy. Oopherectomy. ENCOUNTER: Subsequent ACUITY: 2 days PAIN SCORE: 9/10 LOCATION: Left upper quadrant abdomen FINDINGS: Supine and upright views of the abdomen demonstrate air within bowel in a nonobstructive pattern. Tra nsverse colon is mildly distended. Cholecystectomy clips are present. Upright image demonstrates no f ree intraperitoneal air or significant air-fluid level. Liver shadow is mildly enlarged. There is sev ere renal vascular region calcification. Bones demonstrate no acute finding. There is atelectasis at the lung bases. CONCLUSION: 1. No acute abdominal abnormality is identified. There are no findings to indicate obstruction. 2. Severe renal artery vascular calcification. Abhijit De Los Santos MD on June 18, 2017 at 14:23 Board Certified Radiologist. This report was verified electronically.
[2017-06-18] MEDS: predniSONE 50 MG TAB PO SCH (18:34)
--- NOTE | 2017-06-18 18:46 | EKG ---
Date Performed: 06/17/2017 Time Performed: 21:36:39 PTAGE: 47 years EKG: Sinus rhythm MINIMAL ST DEPRESSION BORDERLINE ECG Compared to prior tracing no significant change PREVIOUS TRACING : 06/17/2017 10.18 DOCTOR: Veronika Kerr Interpretating Date/Time 06/18/2017 18:45:05
[2017-06-18] MEDS: REMOVE OLD PATCH T-DERMAL SCH (20:49)
[2017-06-18] MEDS: MORPHINE SULFATE 2 MG/ML INJ IV PUSH PRN (22:02)
[2017-06-19] VITALS (7 sets, daily range): BP systolic 114–145; BP diastolic 53–74; PULSE 68–85; RESP 18–24; TEMP 97.4–98.6; O2SAT 91–97
[2017-06-19] MEDS: predniSONE 50 MG TAB PO SCH ×2 (01:30→06:40)
[2017-06-19] MEDS: ACETAMINOPHEN/HYDROcodone 325 MG/5 MG TAB PO PRN ×2 (01:30→07:54)
[2017-06-19] MEDS: MORPHINE SULFATE 2 MG/ML INJ IV PUSH PRN ×6 (04:53→23:08)
[2017-06-19 06:49] LABS: AUTOMATED NEUTROPHIL # 8.6 TH/MM3 (1.8-7.7); BASOPHIL % 0.2 % (0.0-2.0); HEMATOCRIT 29.8 % (35.0-46.0); HEMO FLAGS DIFF FINAL; LYMPH % 5.9 % (9.0-44.0); LYMPHOCYTE # 0.6 TH/MM3 (1.0-4.8); MEAN CELL VOLUME 94.4 FL (80.0-100.0); MEAN CORPUSCULAR HEMOGLOBIN 31.9 PG (27.0-34.0); MEAN CORPUSCULAR HGB CONC 33.7 % (32.0-36.0); MONO % 3.1 % (0.0-8.0); NEUT % 90.8 % (16.0-70.0); PLATELET COUNT 308 TH/MM3 (150-450); RED BLOOD COUNT 3.16 MIL/MM3 (4.00-5.30); RED CELL DISTRIBUTION WIDTH 17.1 % (11.6-17.2); WHITE BLOOD COUNT 9.4 TH/MM3 (4.0-11.0)
[2017-06-19] MEDS ORDERED: diphenhydrAMINE HCL 50 MG CAP PO ONE (07:00)
[2017-06-19 07:17] LABS: ALKALINE PHOSPHATASE 96 U/L (45-117); ALT (GPT) 8 U/L (10-53); ANION GAP 17 MEQ/L (5-15); AST (GOT) 8 U/L (15-37); BICARBONATE 22.2 MEQ/L (21.0-32.0); BLOOD UREA NITROGEN 56 MG/DL (7-18); CHLORIDE 89 MEQ/L (98-107); GLOMERULAR FILTRATION RATE 5 ML/MIN (>89); SODIUM (NA) 128 MEQ/L (136-145); TOTAL BILIRUBIN ADULT 0.4 MG/DL (0.2-1.0)
[2017-06-19] MEDS ORDERED: VANCOMYCIN INJ 1,000 MG in SODIUM CHLOR 0.9% 250 ML INJ 250 ML IV SCH (08:00)
[2017-06-19] MEDS: INSULIN ASPART SUPPLEMENTAL SCALE SQ SCH ×4 (08:00→21:14)
[2017-06-19] MEDS ORDERED: IOHEXOL 350 MG/ML 10 ML VIAL (for RAD DIAG) IVCONTRAST ONE (08:22)
[2017-06-19] MEDS: VITAMIN B CMPLX/VITC/FOLIC AC CAP PO SCH (09:00)
[2017-06-19] MEDS: DOCUSATE SODIUM 50 MG/SENNA 8.6 MG TAB PO SCH ×2 (09:00→20:01)
--- NOTE | 2017-06-19 09:34 | RADRPT ---
EXAM DATE/TIME: 06/19/2017 08:14 [facility] COMPARISON: CT ABDOMEN & PELVIS W CONTRAST, May 26, 2017, 13:17. INDICATIONS : Abdominal pain, ischemic bowel IV CONTRAST: 92 cc Omnipaque 350 (iohexol) IV ORAL CONTRAST: No oral contrast ingested. RADIATION DOSE: 20.42 CTDIvol (mGy) MEDICAL HISTORY : Cardiovascular disease. Diabetes mellitus type 1. Hypertension. SURGICAL HISTORY : Cholecystectomy. ENCOUNTER: Initial ACUITY: 1 day PAIN SCALE: 5/10 LOCATION: diffuse abdomen TECHNIQUE: Volumetric scanning was performed using a multi-row detector CT scanner. The data was post processed with a variety of visualization algorithms including full volume maximum intensity projection, multi -planar sliding thin slab reformation, curved planar reformation, and surface rendering techniques. Using automated exposure control and adjustment of the mA and/or kV according to patient size, radiat ion dose was kept as low as reasonably achievable to obtain optimal diagnostic quality images. DICOM format image data is available electronically for review and comparison. FINDINGS: ANGIOGRAPHIC FINDINGS: AORTA: The abdominal aorta is small in caliber with mild to moderate distal calcified plaques. No significan t flow-limiting stenosis. VISCERAL ARTERIES: Celiac and SMA are widely patent. Mild to moderate stenosis of the DEWAYNE origin. Renal arteries are dif fusely small in caliber likely secondary to atrophic kidneys. RIGHT LEG: INFLOW: The iliac arteries are patent without significant focal flow-limiting stenosis. Visualized portions o f the femoral arteries are patent. LEFT LEG: INFLOW: Iliac arteries are patent without significant lumen stenosis. Visualized portions of the femoral smooth suman are patent. GENERAL FINDINGS: Bibasilar groundglass opacities and focal consolidation at the left lung base. Liver, adrenal glands, and pancreas are grossly unremarkable. Kidneys are atrophic and end-stage in appearance. Previous CT examination had demonstrated acute infarction in the inferolateral aspect of the spleen. There has b een interval progression of defect along the inferior spleen with now air-containing fluid collection s measuring 6.9 x 3.0 cm in maximal dimension. There is also subcapsular hypodense collection along t he inferior margin of the spleen. Bowel appears grossly unremarkable. There is trace free fluid in the pelvis. No free air or pneumatosis. There is a small fat containing periumbilical and temporal hernia. Bladder is completel y decompressed. Uterus and adnexa are grossly unremarkable for age. The osseous structures are unrema rkable without significant focal lytic or blastic bony lesions. CONCLUSION: 1. Interval development of air-containing fluid collection in the spleen measuring up to 6.9 x 3.0 cm in maximal dimension with subcapsular fluid in region of prior splenic infarction. This finding is c oncerning for splenic abscess. 2. Mild bibasilar ground glass opacities and platelike air space consolidation in the left lower lobe , likely atelectasis. 3. No significant aortic or mesenteric stenosis as questioned. 4. End-stage appearing kidneys. 5. Trace place pelvic free fluid. Findings were personally discussed with Dr. Eko. Capo Liu MD on June 19, 2017 at 9:08 Board Certified Radiologist. This report was verified electronically.
--- NOTE | 2017-06-19 10:11 | HHI.NPPN ---
Subjective History of Present Illness Patient is a 47-year-old the female with history of end-stage renal disease, diabetes, blindness, peripheral vascular disease, calciphylaxis, ischemic left foot, previous right BKA who has certainly admitted with the chest pain she's described the pain in the left side radiating to his left shoulder, patient has similar complaints a few weeks ago, and was discharged after workup She goes to dialysis on Saturday, Saturday and Saturday Additional Remarks no relief from abdominal pain Review of Systems Cardiovascular Cardiac: Chest Pain Objective Data Data Vital Signs Date Time Temp Pulse Resp B/P (MAP) Pulse Ox O2 Delivery O2 Flow Rate FiO2 06/19/17 08:00 97.6 73 18 145/63 (90) 97 06/19/17 04:58 20 06/19/17 04:00 97.8 68 22 117/58 (77) 94 06/19/17 00:00 97.4 72 24 114/53 (73) 93 06/19/17 00:00 Nasal Cannula 2.00 06/18/17 20:00 98.6 84 19 107/54 (71) 96 06/18/17 20:00 Nasal Cannula 2.00 06/18/17 16:00 99.0 82 18 108/49 (68) 91 06/18/17 12:00 98.1 79 18 124/58 (80) 94 -: 06/19/17 0608 06/19/17 0608 Physical Exam General Appearance: Well Developed, Well Nourished Neck Neck Exam: Neck Supple Pulmonary Resp Exam: Clear Bilaterally, Breath Sounds Equal Cardiology CV Exam: Regular Gastrointestinal/Abdomen GI Exam: Soft, Non-Tender, Bowel Sounds Present Extremeties Extremities Exam: Trace Edema Extremeties Remarks ischemic l foot Assessment/Plan Problem List: (1) ESRD (end stage renal disease) on dialysis ICD Codes: N18.6 - End stage renal disease; Z99.2 - Dependence on renal dialysis Status: Chronic Plan: Patient appears to have volume overload we will check BNP Hemodialysis proceedings noted she needs Vanco/Na Thiosulfate UF 5 L She has calciphylaxis and received sodium thiosulfate splenic fluid collection (2) Hyperkalemia ICD Codes: E87.5 - Hyperkalemia Status: Resolved Plan: Hemodialysis planned (3) Calciphylaxis ICD Codes: E83.59 - Other disorders of calcium metabolism Status: Acute Plan: Continue with sodium thiosulfate (4) Peripheral vascular disease ICD Codes: I73.9 - Peripheral vascular disease, unspecified Status: Acute Plan: Had previous procedures done (5) Diabetes ICD Codes: E11.9 - Type 2 diabetes mellitus without complications Status: Chronic Plan: Monitor blood glucose (6) Hypertension ICD Codes: I10 - Essential (primary) hypertension Status: Acute Plan: Continue to monitor blood pressure (7) Chest pain ICD Codes: R07.9 - Chest pain, unspecified Status: Acute Plan: as above follow VQ scan Problem Qualifiers (1) Diabetes: (2) Hypertension: Qualified Codes: I10 - Essential (primary) hypertension (3) Chest pain: Qualified Codes: R07.9 - Chest pain, unspecified Gerri Gilbert MD Jun 19, 2017 10:11
[2017-06-19] MEDS: SODIUM THIOSULFATE INJ 25,000 MG in WATER STERILE FOR INJ 100 ML IV PRN (10:38)
[2017-06-19] MEDS: EPOETIN ALFA 10,000 UNITS/ML VIAL IV PUSH PRN (10:43)
[2017-06-19] MEDS: GELATIN 12 MM/7 MM FOAM TOP PRN (10:43)
--- NOTE | 2017-06-19 10:50 | HHI.FPPN ---
Subjective Remarks Ms Laguerre was in dialysis this morning. She states that she does not feel good at all. We discussed the results of her abdominal/pelvic CTA that showed a splenic abscess and the need for IR-placed drain versus surgery. She expressed understanding and agreement. (Leena Johnston MD R2) Objective Vitals Vital Signs Date Time Temp Pulse Resp B/P (MAP) Pulse Ox O2 Delivery O2 Flow Rate FiO2 06/19/17 08:00 97.6 73 18 145/63 (90) 97 06/19/17 08:00 97 Nasal Cannula 2.00 06/19/17 04:58 20 06/19/17 04:00 97.8 68 22 117/58 (77) 94 06/19/17 00:00 97.4 72 24 114/53 (73) 93 06/19/17 00:00 Nasal Cannula 2.00 06/18/17 20:00 98.6 84 19 107/54 (71) 96 06/18/17 20:00 Nasal Cannula 2.00 06/18/17 16:00 99.0 82 18 108/49 (68) 91 06/18/17 12:00 98.1 79 18 124/58 (80) 94 I/O 06/18/17 06/18/17 06/18/17 06/19/17 06/19/17 06/19/17 07:00 15:00 23:00 07:00 15:00 23:00 Intake Total 600 ml 480 ml 0 ml Output Total 0 ml 0 ml Balance 600 ml 480 ml 0 ml Intake Oral 600 ml 480 ml 0 ml Output Urine Total 0 ml 0 ml # Bowel Movements 2 0 0 (Leena Johnston MD R2) Result Diagram: 06/19/17 0608 06/19/17 0608 Objective Remarks O. CONSTITUTIONAL/GEN: normally nourished, in this morning, looks very uncomfortable EYES: conjunctiva normal, EOMI. ENT: Mouth and pharynx normal. Edentulous. LUNGS: CTAB but poor effort CARDIOVASCULAR: RR without murmur or gallop. No significant edema. GI/ABD: Obese, tender to light palpation diffusely, worse in the mid- suprapubic area with guarding NEURO: Sensation intact left foot SKIN: Hyperpigmentation face with open forehead and chin lesions from calcinosis. Hyperpigmentation distal left lower extremity. HEME/LYMPH: no bruising, petechia or significant adenopathy MUSC: Amputation status right BKA. PSYCH/MENTAL STATUS: Alert and oriented x 3. (Leena Johnston MD R2) A/P Assessment and Plan 47-year-old female with a past medical history of end-stage renal disease, diabetes, hypertension, PAD, recently discharged from the hospital on 03 June where she was found to have an acute splenic infarction, presented with a one-day history of chest pain and left shoulder pain as well as elevated potassium and creatinine. She was admitted to the hospital for dialysis and ACS rule out and was found to have a splenic abscess identified on CTA performed on 06/19/17. Plan is for a drain placed by IR. General surgery has been consulted in case there is a need for surgical management. ID has been consulted to assist with antibiotic management Discussed with Dr. Real. Seen with Dr. Grey Discharge Planning Pending management of splenic abscess (Leena Johnston MD R2) Attending Attestation Patient seen and examined. Case reviewed and discussed with the resident team. Agree with plan of care as discussed with me and documented in the resident note. (Renetta Real MD) Problem List: (1) Splenic abscess ICD Codes: D73.3 - Abscess of spleen Status: Acute Plan: -CTA performed on 06/19 shows interval development of air-containing fluid collection in the spleen measuring up to 6.9 x 3.0 cm in maximal dimension with subcapsular fluid in region of prior splenic infarction, concerning for splenic abscess. No significant aortic or mesenteric stenoses identified -Splenic abscess is reason for patient's abdominal pain and patient's complaint of shoulder pain is most likely referred pain from the abdomen -Interventional radiology consulted - plan for drainage placement on 06/20/17 due to patient being on Eliquis and Plavix -Gen. surgery consulted and agrees with IR drainage placement -ID consulted - continue vancomycin for previously diagnosed bacteremia with changing timing. Start IV cefepime 2 g every 24 hours and Flagyl IV 500 mg by mouth every 8 hours -Follow cultures of drained abscess fluid (2) ESRD (end stage renal disease) on dialysis ICD Codes: N18.6 - End stage renal disease; Z99.2 - Dependence on renal dialysis Status: Chronic Plan: -Hemodialysis MWF per nephrology recommendations, Dr. Gilbert on board (3) Hyperkalemia ICD Codes: E87.5 - Hyperkalemia Status: Resolved Plan: -Fluctuating levels of potassium -Dialysis as above (4) History of bacteremia ICD Codes: Z87.898 - Personal history of other specified conditions Plan: -History of bacteremia with recurrent fever secondary to Enterococcus and Klebsiella on last admission -Patient was being treated for enterococcus bacteremia with vancomycin 1 g 3 times a week (MWF) after hemodialysis and Ciprofloxacin PO -Discussed with nephrology to arrange for IV vanco with HD -Continue Cipro 750mg PO daily to complete 28 days (5) Hypertension ICD Codes: I10 - Essential (primary) hypertension Status: Acute Plan: -Continue home medications: Amlodipine and Coreg, hold lisinopril (6) Diabetes ICD Codes: E11.9 - Type 2 diabetes mellitus without complications Status: Chronic Plan: -On insulin glargine 25 units subcutaneous twice a day -Start glucose monitoring with sliding scale insulin -Required 16 units on 06/18. Will not start Levemir due to patient being nothing by mouth at midnight (7) Peripheral vascular disease ICD Codes: I73.9 - Peripheral vascular disease, unspecified Status: Acute Plan: -Holding Plavix 75 mg by mouth daily for IR procedure (8) Calciphylaxis ICD Codes: E83.59 - Other disorders of calcium metabolism Status: Acute Plan: -Continue thiosulfate per nephrology (9) Tobacco abuse ICD Codes: Z72.0 - Tobacco use Status: Chronic Plan: -Nicotine patch 7 mg (10) Physical deconditioning ICD Codes: R53.81 - Other malaise Plan: -PT consulted to assist with ambulation and exercises (11) Chronic Medical Problems Plan: Diabetic neuropathy: Holding gabapentin 400 mg by mouth 3 times a day Hyperlipidemia: Continue Atorvastin, Pravastatin Anxiety/Depression: Continue sertraline 100 mg by mouth daily, continue trazodone 50 mg by mouth at bedtime (12) FEN/DVT PPX/GI PPX/Nursing Orders Plan: Fluids: Oral fluids only, on hemodialysis Electrolytes: Will monitor and replace as needed Nutrition: Renal diet, nothing by mouth at midnight for procedure DVT Prophylaxis: Unilateral SCDs, holding Eliquis 2.5 mg by mouth twice a day for IR procedure GI Prophylaxis: None currently PRN Medications Tylenol 650 mg by mouth every 4 hours when necessary pain 1-10 or temperature greater than 100.4F Zofran 4 mg IV push every 6 hours when necessary nausea vomiting Percocet 325-5 mg 1 tab by mouth every 6 hours when necessary pain 1-5 Percocet 325-10 mg 1 tab by mouth every 6 hours when necessary pain 6-10 Morphine 4 mg IV every 3 hours when necessary breakthrough pain -Vitals Q4h -Monitor I's and O's -Fall precautions -Neurochecks -Seizure precautions -awake overnight monitor with telemetry with continuous vital signs -Activity OOB with assistance -PT to assist with ambulation -Case management consult to assist with discharge disposition Disposition: Possibly in the next 2-3 days pending clinical improvement (Leena Johnston MD R2) Problem Qualifiers (1) Hypertension: Qualified Codes: I10 - Essential (primary) hypertension (2) Diabetes: Leena Johnston MD R2 Jun 19, 2017 10:50 Renetta Real MD Jun 19, 2017 16:08
[2017-06-19] MEDS ORDERED: oxyCODONE/ACETAMINOPHEN 5 MG/325 MG TAB PO PRN (12:30)
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
--- NOTE | 2017-06-19 14:21 | PD.CONS ---
cc: Ifeoma Martinez MD HPI Service General Surgery Consult Requested By Dr. Grey Reason for Consult Splenic abscess Primary Care Physician Unknown History of Present Illness This is a 47 year old female with a past medical history of ESRD on hemodialysis , hypertension, diabetes mellitus, peripheral vascular disease, high cholesterol , and diabetic retinopathy. About a month ago the patient was in the hospital and found to have a splenic infarct. The patient was evaluated by Dr. Mckeon. The patient's pain resolved and was DCed home. The patient comes back with severe left sided abdominal pain with pain radiating to her left shoulder. She rates this pain an 8/10. She thought she had a blood clot in her arm because her arm and shoulder were so painful. A CT abdomen/pelvis was obtained and showed a small splenic abscess. Interventional Radiology had been consulted for drainage of splenic abscess. A General Surgery consultation has been requested for evaluation of splenic abscess. Review of Systems Constitutional: DENIES: Fatigue, Change in appetite Endocrine: DENIES: Polydipsia, Polyuria, Polyphagia Eyes: DENIES: Diplopia Ears, nose, mouth, throat: DENIES: Hearing loss Respiratory: DENIES: Cough Cardiovascular: DENIES: Chest pain Gastrointestinal: COMPLAINS OF: Abdominal pain (radiating to LEFT shoulder ), DENIES: Nausea, Vomiting Genitourinary: DENIES: Urinary frequency Musculoskeletal: DENIES: Joint pain Integumentary: DENIES: Abnormal pigmentation Hematologic/lymphatic: DENIES: Bruising Immunologic/allergic: DENIES: Eczema Neurologic: DENIES: Headache, Localized weakness Psychiatric: DENIES: Mood changes, Depression, Hallucinations Past Family Social History Past Medical History ESRD Hypertension Diabetes Mellitus Depression Peripheral Vascular Disease High cholesterol Past Surgical History RIGHT BKA Laparoscopic cholecystectomy RUE fistula Tonsillectomy Reported Medications Cipro Nicotine patch Eliquis Plavix Coreg Norvasc Lisinopril Gabapentin Trazodone Sertraline Colace Omeprazole Lantus B vitamin Vitamin D Allergies: Coded Allergies: codeine (Verified Allergy, Severe, HYPERACTIVITY &ITCH, 06/17/17) iodine (Verified Allergy, Severe, TOPICAL/ITCH, 06/17/17) potassium iodide (Verified Allergy, Severe, TOPICAL/ITCH, 06/17/17) povidone-iodine (Verified Allergy, Severe, TOPICAL/ITCH, 06/17/17) sodium iodide (Verified Allergy, Severe, TOPICAL/ITCH, 06/17/17) sodium iodide (Verified Allergy, Severe, TOPICAL/ITCH, 06/17/17) iohexol (Verified Allergy, Intermediate, HIVES, 06/17/17) Pork/Porcine Containing Products (Verified Allergy, Unknown, 06/17/17) penicillin G (Verified Allergy, Unknown, 06/17/17) Active Ordered Medications Current Medications Medications (Trade) Dose Ordered Sig/Jen Route Start Time Stop Time Status Last Admin Sodium Chloride 1,000 ml @ 0 mls/hr Q0M PRN OTHER 06/17/17 13:27 (Heparin Inj) 8,000 units UNSCH PRN IV FLUSH 06/17/17 13:30 Sodium Chloride 1,000 ml @ 200 mls/hr Q5H PRN IV 06/17/17 13:27 Sodium Chloride 1,000 ml @ 0 mls/hr Q0M PRN OTHER 06/17/17 13:27 (Mannitol Inj) 12.5 gm UNSCH PRN IV 06/17/17 13:30 Albumin Human 100 ml @ 60 mls/hr UNSCH PRN IV 06/17/17 13:30 06/17/17 17:18 (NS Flush) 5 ml UNSCH PRN IV FLUSH 06/17/17 13:30 (Heparin Inj) UNSCH PRN .XX 06/17/17 13:30 (Gentamicin (Dialysis) Inj) 20 mg UNSCH PRN OTHER 06/17/17 13:30 (Zofran Inj) 4 mg UNSCH PRN IV PUSH 06/17/17 13:30 (Tylenol) 650 mg UNSCH PRN PO 06/17/17 13:30 (Benadryl) 25 mg UNSCH PRN PO 06/17/17 13:30 (Nitrostat Sl) 0.4 mg UNSCH PRN SL 06/17/17 13:30 (Catapres) 0.1 mg UNSCH PRN PO 06/17/17 13:30 (Epogen Inj) 4,000 units UNSCH PRN IV PUSH 06/17/17 13:30 06/19/17 10:43 (Gelfoam 12 Mm/7 Mm Top) 1 foam UNSCH PRN TOP 06/17/17 13:30 06/19/17 10:43 Sodium Thiosulfate 28761 mg/Sterile Water 200 ml @ 150 mls/hr WITH DIALYSIS PRN IV 06/17/17 13:30 06/19/17 10:38 (NS Flush) 2 ml UNSCH PRN IV FLUSH 06/17/17 14:45 (NS Flush) 2 ml BID IV FLUSH 06/17/17 21:00 06/18/17 20:37 (Zofran Inj) 4 mg Q6H PRN IVP 06/17/17 18:00 (Narcan Inj) 0.4 mg UNSCH PRN IV PUSH 06/17/17 14:45 (Areli-Colace) 2 tab BID PO 06/17/17 21:00 06/17/17 20:52 (D50w (Vial) Inj) 50 ml UNSCH PRN IV PUSH 06/17/17 15:00 (Glucagon Inj) 1 mg UNSCH PRN OTHER 06/17/17 15:00 (NovoLOG SUPPLEMENTAL SCALE) 1 ACHS SLIDING SCALE SQ 06/17/17 17:00 06/18/17 23:18 (Norvasc) 10 mg DAILY PO 06/18/17 09:00 06/18/17 08:58 (Coreg) 25 mg BID PO 06/17/17 21:00 06/18/17 20:36 (Vitamin D3) 5,000 units DAILY PO 06/18/17 09:00 06/18/17 08:57 (Zoloft) 100 mg DAILY PO 06/18/17 09:00 06/18/17 08:57 (Nephrocaps) 1 cap DAILY PO 06/18/17 09:00 06/18/17 08:57 (Protonix) 40 mg DAILY PO 06/17/17 15:00 06/18/17 08:57 (Tylenol) 500 mg Q6H PRN PO 06/17/17 18:00 (Cipro) 750 mg DAILY PO 06/18/17 09:00 06/18/17 08:58 (Habitrol 7 Mg Patch.24 Hr) 1 patch DAILY T-DERMAL 06/18/17 09:00 06/18/17 08:59 Miscellaneous Information 1 HS T-DERMAL 06/17/17 21:00 06/18/17 20:49 Vancomycin HCl 1000 mg/Sodium Chloride 250 ml @ 250 mls/hr WITH DIALYSIS IV 06/19/17 08:00 06/19/17 10:38 (Morphine Inj) 4 mg Q3H PRN IV PUSH 06/19/17 14:15 06/19/17 13:49 (Percocet 5-325 Mg) 1 tab Q4H PRN PO 06/19/17 12:30 (Percocet 5-325 Mg) 2 tab Q6H PRN PO 06/19/17 12:30 Cefepime HCl 2000 mg/Sodium Chloride 100 ml @ 200 mls/hr Q24H IV 06/19/17 13:30 UNV (Flagyl) 500 mg Q8HR PO 06/19/17 14:00 Family History Non contributory Social History + Tobacco use-- 2-3 puffs of cigar daily; started a nicotine patch 3 days prior to admission Denies ETOH use Uses Lortab tablets that are not prescribed to her PRN for pain Physical Exam Vital Signs Vital Signs Date Time Temp Pulse Resp B/P (MAP) Pulse Ox O2 Delivery O2 Flow Rate FiO2 06/19/17 08:00 97.6 73 18 145/63 (90) 97 06/19/17 08:00 97 Nasal Cannula 2.00 06/19/17 04:58 20 06/19/17 04:00 97.8 68 22 117/58 (77) 94 06/19/17 00:00 97.4 72 24 114/53 (73) 93 06/19/17 00:00 Nasal Cannula 2.00 06/18/17 20:00 98.6 84 19 107/54 (71) 96 06/18/17 20:00 Nasal Cannula 2.00 06/18/17 16:00 99.0 82 18 108/49 (68) 91 Physical Exam GENERAL: 47 year old female appearing older than stated age in no acute distress ; patient seen in hemodialysis lab. SKIN: Warm and dry. HEAD: Atraumatic. Normocephalic. EYES: Pupils equal and round. No scleral icterus. No injection or drainage. ENT: No nasal bleeding or discharge. Mucous membranes pink and moist. NECK: Trachea midline. CARDIOVASCULAR: Regular rate and rhythm. RESPIRATORY: No accessory muscle use. Clear to auscultation. Breath sounds equal bilaterally. GASTROINTESTINAL: Abdomen soft, obese abdomen. Tender to palpation in all four quadrants but greatest in LUQ with pain radiating to the LEFT shoulder. Small RUQ well healed laparoscopic incisions. MUSCULOSKELETAL: Evidence of PVD. RIGHT BKA. NEUROLOGICAL: Awake and alert. No obvious cranial nerve deficits. Motor grossly within normal limits. Normal speech. PSYCHIATRIC: Appropriate mood and affect; insight and judgment normal. Laboratory Laboratory Tests Test 06/19/17 06:08 White Blood Count 9.4 Red Blood Count 3.16 Hemoglobin 10.1 Hematocrit 29.8 Mean Corpuscular Volume 94.4 Mean Corpuscular Hemoglobin 31.9 Mean Corpuscular Hemoglobin Concent 33.7 Red Cell Distribution Width 17.1 Platelet Count 308 Mean Platelet Volume 8.5 Neutrophils (%) (Auto) 90.8 Lymphocytes (%) (Auto) 5.9 Monocytes (%) (Auto) 3.1 Eosinophils (%) (Auto) 0.0 Basophils (%) (Auto) 0.2 Neutrophils # (Auto) 8.6 Lymphocytes # (Auto) 0.6 Monocytes # (Auto) 0.3 Eosinophils # (Auto) 0.0 Basophils # (Auto) 0.0 CBC Comment DIFF FINAL Differential Comment Blood Urea Nitrogen 56 Creatinine 8.12 Random Glucose 290 Total Protein 8.1 Albumin 3.0 Calcium Level 9.3 Alkaline Phosphatase 96 Aspartate Amino Transf (AST/SGOT) 8 Alanine Aminotransferase (ALT/SGPT) 8 Total Bilirubin 0.4 Sodium Level 128 Potassium Level 6.0 Chloride Level 89 Carbon Dioxide Level 22.2 Anion Gap 17 Estimat Glomerular Filtration Rate 5 Date/Time Source Procedure Growth Status 06/18/17 03:50 Blood Peripheral Aerobic Blood Culture - Preliminary NO GROWTH IN 1 DAY Resulted 06/18/17 03:50 Blood Peripheral Anaerobic Blood Culture - Preliminary NO GROWTH IN 1 DAY Resulted Result Diagram: 06/19/17 0608 06/19/17 0608 Imaging Last 48 hours Impressions Chest X-Ray 06/18/17 0600 Signed Impressions: Service Date/Time: Sunday, June 18, 2017 08:33 - CONCLUSION: 1. Linear airspace disease in the right middle lobe and lingula consistent with atelectasis. Differential considerations include aspiration in the appropriate clinical setting. Capo Liu MD Abdomen/Pelvis CT 06/18/17 0000 Signed Impressions: Service Date/Time: Monday, June 19, 2017 08:14 - CONCLUSION: 1. Interval development of air-containing fluid collection in the spleen measuring up to 6.9 x 3.0 cm in maximal dimension with subcapsular fluid in region of prior splenic infarction. This finding is concerning for splenic abscess. 2. Mild bibasilar ground glass opacities and platelike air space consolidation in the left lower lobe, likely atelectasis. 3. No significant aortic or mesenteric stenosis as questioned. 4. End-stage appearing kidneys. 5. Trace place pelvic free fluid. Findings were personally discussed with Dr. Johnston. Capo Liu MD Abdomen X-Ray 06/18/17 0000 Signed Impressions: Service Date/Time: Sunday, June 18, 2017 13:38 - CONCLUSION: 1. No acute abdominal abnormality is identified. There are no findings to indicate obstruction. 2. Severe renal artery vascular calcification. Abhijit De Los Santos MD Assessment and Plan Assessment and Plan 47 year old female with multiple medical issues; with splenic abscess -Plan for IR drainage today -ID following -Continue to follow fevers/WBC -Diet as tolerated -Thank you for this consult; We will continue to follow Patient seen and examined in her room. Case DW FP team. Recommend nonoperative management with IR drain. Will be available should splenectomy become necessary. IFEOMA MARTINEZ MD FACS Discussed Condition With Dr. Juan Melendez LaguerreDawna Anton Jun 19, 2017 14:21 Ifeoma Martinez MD Jun 24, 2017 12:55
[2017-06-19] MEDS: CARVEDILOL 12.5 MG TAB PO SCH ×2 (14:57→20:00)
[2017-06-19] MEDS: PANTOPRAZOLE SOD 40 MG DELAYED RELEASE TAB PO SCH (14:57)
[2017-06-19] MEDS: metroNIDAZOLE 500 MG TAB PO SCH ×2 (14:57→21:13)
[2017-06-19] MEDS: NICOTINE 7 MG/24 HR PATCH T-DERMAL SCH (14:58)
[2017-06-19] MEDS: SERTRALINE HCL 100 MG TAB PO SCH (14:58)
[2017-06-19] MEDS: CIPROFLOXACIN 750 MG TAB PO SCH (14:58)
[2017-06-19] MEDS: oxyCODONE/ACETAMINOPHEN 5 MG/325 MG TAB PO PRN ×2 (14:58→21:13)
[2017-06-19] MEDS: CHOLECALCIFEROL (VIT D3) 5000 UNIT CAP PO SCH (14:58)
[2017-06-19] MEDS: SODIUM CHLORIDE 0.9% FLUSH 10 ML FLUSH IV FLUSH SCH ×2 (15:05→20:01)
[2017-06-19 15:40] LABS: APTT (PATIENT) 26.8 SEC (24.3-30.1); INTERNATIONAL NORMALIZED RATIO 1.2 RATIO; PROTHROMBIN TIME - PATIENT 12.8 SEC (9.8-11.6)
[2017-06-19] MEDS: CEFEPIME INJ 2,000 MG in SODIUM CHLORIDE 0.9% INJ 100 ML IV SCH (16:57)
[2017-06-19] MEDS ORDERED: INSULIN DETEMIR 100 UNITS/ML VIAL SQ ONE (18:15)
[2017-06-19] MEDS: traZODone HCL 50 MG TAB PO SCH (20:00)
[2017-06-19] MEDS: REMOVE OLD PATCH T-DERMAL SCH (21:14)
[2017-06-20] VITALS (10 sets, daily range): BP systolic 106–160; BP diastolic 50–79; PULSE 61–81; RESP 16–20; TEMP 97.5–98.2; O2SAT 90–98
[2017-06-20] MEDS: oxyCODONE/ACETAMINOPHEN 5 MG/325 MG TAB PO PRN ×3 (03:07→18:19)
[2017-06-20] MEDS: metroNIDAZOLE 500 MG TAB PO SCH ×3 (04:41→21:26)
[2017-06-20] MEDS: MORPHINE SULFATE 2 MG/ML INJ IV PUSH PRN ×3 (04:41→21:28)
[2017-06-20 06:09] LABS: AUTOMATED NEUTROPHIL # 7.6 TH/MM3 (1.8-7.7); BASOPHIL % 0.3 % (0.0-2.0); EOSINOPHIL % 0.1 % (0.0-4.0); HEMATOCRIT 31.1 % (35.0-46.0); HEMO FLAGS DIFF FINAL; LYMPH % 8.3 % (9.0-44.0); LYMPHOCYTE # 0.7 TH/MM3 (1.0-4.8); MEAN CORPUSCULAR HEMOGLOBIN 30.7 PG (27.0-34.0); MEAN CORPUSCULAR HGB CONC 32.7 % (32.0-36.0); MONO % 6.5 % (0.0-8.0); NEUT % 84.8 % (16.0-70.0); PLATELET COUNT 399 TH/MM3 (150-450); RED BLOOD COUNT 3.31 MIL/MM3 (4.00-5.30); RED CELL DISTRIBUTION WIDTH 16.8 % (11.6-17.2); WHITE BLOOD COUNT 8.9 TH/MM3 (4.0-11.0)
[2017-06-20 07:07] LABS: ALKALINE PHOSPHATASE 97 U/L (45-117); ALT (GPT) 10 U/L (10-53); ANION GAP 15 MEQ/L (5-15); AST (GOT) 5 U/L (15-37); BICARBONATE 25.8 MEQ/L (21.0-32.0); BLOOD UREA NITROGEN 57 MG/DL (7-18); CHLORIDE 88 MEQ/L (98-107); GLOMERULAR FILTRATION RATE 7 ML/MIN (>89); POTASSIUM 4.9 MEQ/L (3.5-5.1); SODIUM (NA) 129 MEQ/L (136-145); TOTAL BILIRUBIN ADULT 0.3 MG/DL (0.2-1.0)
--- NOTE | 2017-06-20 07:15 | HHI.FPPN ---
Subjective Remarks Pt is doing much better this morning. She still has pain but is doing much better after her pain regimen was changed yesterday. She denies nausea, fever, chills, and vomiting. Her last bowel movement was 2 days ago. (EkoLeena MD R2) Objective Vitals Vital Signs Date Time Temp Pulse Resp B/P (MAP) Pulse Ox O2 Delivery O2 Flow Rate FiO2 06/20/17 05:24 Room Air 06/20/17 04:00 97.7 72 20 130/60 (83) 95 06/20/17 00:50 Room Air 06/20/17 00:00 98.2 74 20 130/59 (82) 97 06/19/17 20:37 96 Nasal Cannula 2.00 06/19/17 20:01 74 06/19/17 20:00 98.2 80 22 134/62 (86) 95 06/19/17 20:00 Nasal Cannula 2.00 06/19/17 16:00 98.6 85 18 136/74 (94) 91 06/19/17 08:00 97.6 73 18 145/63 (90) 97 06/19/17 08:00 97 Nasal Cannula 2.00 I/O 06/19/17 06/19/17 06/19/17 06/20/17 06/20/17 06/20/17 07:00 15:00 23:00 07:00 15:00 23:00 Intake Total 0 ml 340 ml Output Total 0 ml 5000 ml Balance 0 ml -5000 ml 340 ml Intake Oral 0 ml 240 ml IV Total 100 ml Output Urine Total 0 ml Hemodialysis 5000 ml # Voids 0 # Bowel Movements 0 0 (ChrisoLeena MD R2) Result Diagram: 06/20/17 0550 06/20/17 0550 Objective Remarks O. CONSTITUTIONAL/GEN: normally nourished, sitting on the side of the bed, appears calm EYES: conjunctiva normal, EOMI. ENT: Mouth and pharynx normal. Edentulous. LUNGS: CTAB but poor effort CARDIOVASCULAR: RR without murmur or gallop. No significant edema. GI/ABD: Obese, tender to light palpation diffusely, worse in the epigastric and LUQ area with mild guarding NEURO: Sensation intact left foot SKIN: Hyperpigmentation face with open forehead and chin lesions from calcinosis. Hyperpigmentation distal left lower extremity. HEME/LYMPH: no bruising, petechia or significant adenopathy MUSC: Amputation status right BKA. PSYCH/MENTAL STATUS: Alert and oriented x 3. (Leena Johnston MD R2) A/P Assessment and Plan 47-year-old female with a past medical history of end-stage renal disease, diabetes, hypertension, PAD, recently discharged from the hospital on 03 June where she was found to have an acute splenic infarction, presented with a one-day history of chest pain and left shoulder pain as well as elevated potassium and creatinine. She was admitted to the hospital for dialysis and ACS rule out and was found to have a splenic abscess identified on CTA performed on 06/19/17. Plan is for a drain placed by IR today General surgery has been consulted in case there is a need for surgical management. ID is assisting with antibiotic management. Will discuss with Dr. Real. Seen with Dr. Grey Discharge Planning Pending management of splenic abscess (Leena Johnston MD R2) Attending Attestation Patient seen and examined. Case reviewed and discussed with the resident team. Agree with plan of care as discussed with me and documented in the resident note. (Renetta Real MD) Problem List: (1) Splenic abscess ICD Codes: D73.3 - Abscess of spleen Status: Acute Plan: -CTA performed on 06/19 shows interval development of air-containing fluid collection in the spleen measuring up to 6.9 x 3.0 cm in maximal dimension with subcapsular fluid in region of prior splenic infarction, concerning for splenic abscess. No significant aortic or mesenteric stenoses identified -Interventional radiology consulted - plan for drainage placement today 06/20/17 -Gen. surgery consulted and agrees with IR drainage placement -ID consulted - continue vancomycin for previously diagnosed bacteremia with changing timing. -Continue IV cefepime 2 g every 24 hours and Flagyl IV 500 mg by mouth every 8 hours -Follow cultures of drained abscess fluid Antibiotic history -Cefepime 2 g IV every 24 hours: Received 1 dose so far -Flagyl 500 mg every 8 hours on received 3 doses so far (2) ESRD (end stage renal disease) on dialysis ICD Codes: N18.6 - End stage renal disease; Z99.2 - Dependence on renal dialysis Status: Chronic Plan: -Hemodialysis MWF per nephrology recommendations, Dr. Gilbert on board (3) Hyperkalemia ICD Codes: E87.5 - Hyperkalemia Status: Resolved Plan: -Fluctuating levels of potassium -Dialysis as above (4) History of bacteremia ICD Codes: Z87.898 - Personal history of other specified conditions Plan: -History of bacteremia with recurrent fever secondary to Enterococcus and Klebsiella on last admission -Patient was being treated for enterococcus bacteremia with vancomycin 1 g 3 times a week (MWF) after hemodialysis and Ciprofloxacin PO -Discussed with nephrology to arrange for IV vanco with HD, patient completes 28 days -Continue Cipro 750mg PO daily to complete 28 days Antibiotic history -Vancomycin 1 g IV, MWF after dialysis - started on 05/29 - calculated 8 doses so far -Ciprofloxacin 750 mg by mouth daily - started on 06/03 - calculated 18 doses (5) Hypertension ICD Codes: I10 - Essential (primary) hypertension Status: Acute Plan: -BP 160/70 in the a.m. -Continue home medications: Amlodipine and Coreg, resume lisinopril (6) Diabetes ICD Codes: E11.9 - Type 2 diabetes mellitus without complications Status: Chronic Plan: -Takes insulin glargine 25 units subcutaneous twice a day at home -Continue glucose monitoring with sliding scale insulin -Required 18 units on 06/19 with blood glucose ranging from 238 to 431. Was administered 10 units Levemir by the night team. Will start Levemir 5 units subcutaneous twice a day (7) Peripheral vascular disease ICD Codes: I73.9 - Peripheral vascular disease, unspecified Status: Acute Plan: -Holding Plavix 75 mg by mouth daily for IR procedure (8) Calciphylaxis ICD Codes: E83.59 - Other disorders of calcium metabolism Status: Acute Plan: -Continue thiosulfate per nephrology (9) Tobacco abuse ICD Codes: Z72.0 - Tobacco use Status: Chronic Plan: -Nicotine patch 7 mg (10) Physical deconditioning ICD Codes: R53.81 - Other malaise Plan: -PT consulted to assist with ambulation and exercises (11) Chronic Medical Problems Plan: Diabetic neuropathy: Holding gabapentin 400 mg by mouth 3 times a day Hyperlipidemia: Continue Atorvastin, Pravastatin Anxiety/Depression: Continue sertraline 100 mg by mouth daily, continue trazodone 50 mg by mouth at bedtime (12) FEN/DVT PPX/GI PPX/Nursing Orders Plan: Fluids: Oral fluids only, on hemodialysis Electrolytes: Will monitor and replace as needed Nutrition: Renal diet, nothing by mouth at midnight for procedure DVT Prophylaxis: Unilateral SCDs, holding Eliquis 2.5 mg by mouth twice a day for IR procedure GI Prophylaxis: None currently PRN Medications Tylenol 650 mg by mouth every 4 hours when necessary pain 1-10 or temperature greater than 100.4F Zofran 4 mg IV push every 6 hours when necessary nausea vomiting Percocet 325-5 mg 1 tab by mouth every 6 hours when necessary pain 1-5 Percocet 325-10 mg 1 tab by mouth every 6 hours when necessary pain 6-10 Morphine 4 mg IV every 3 hours when necessary breakthrough pain -Vitals Q4h -Monitor I's and O's -Fall precautions -Neurochecks -Seizure precautions -jingle writer with telemetry with continuous vital signs -Activity OOB with assistance -PT to assist with ambulation -Case management consult to assist with discharge disposition Disposition: Possibly in the next 1-2 days pending clinical improvement and infectious disease recommendation (Leena Johnston MD R2) Problem Qualifiers (1) Hypertension: Qualified Codes: I10 - Essential (primary) hypertension (2) Diabetes: Leena Johnston MD R2 Jun 20, 2017 07:15 Renetta Real MD Jun 20, 2017 13:38
[2017-06-20] MEDS: INSULIN ASPART SUPPLEMENTAL SCALE SQ SCH ×4 (08:00→21:25)
[2017-06-20] MEDS: POLYETHYLENE GLYCOL 17 GM PKG PO SCH (08:19)
[2017-06-20] MEDS: CHOLECALCIFEROL (VIT D3) 5000 UNIT CAP PO SCH (08:19)
[2017-06-20] MEDS: SERTRALINE HCL 100 MG TAB PO SCH (08:19)
[2017-06-20] MEDS: VITAMIN B CMPLX/VITC/FOLIC AC CAP PO SCH (08:19)
[2017-06-20] MEDS: PANTOPRAZOLE SOD 40 MG DELAYED RELEASE TAB PO SCH (08:19)
[2017-06-20] MEDS: CARVEDILOL 12.5 MG TAB PO SCH ×2 (08:19→21:26)
[2017-06-20] MEDS: CIPROFLOXACIN 750 MG TAB PO SCH (08:19)
[2017-06-20] MEDS: SODIUM CHLORIDE 0.9% FLUSH 10 ML FLUSH IV FLUSH SCH ×2 (08:20→21:26)
[2017-06-20] MEDS: DOCUSATE SODIUM 50 MG/SENNA 8.6 MG TAB PO SCH ×2 (08:20→21:00)
[2017-06-20] MEDS: NICOTINE 7 MG/24 HR PATCH T-DERMAL SCH (08:21)
[2017-06-20] MEDS ORDERED: VANCOMYCIN INJ 1,000 MG in SODIUM CHLOR 0.9% 250 ML INJ 250 ML IV SCH (09:15)
[2017-06-20] MEDS ORDERED: MIDAZOLAM HCL 2 MG/2 ML VIAL ONE (09:29)
[2017-06-20] MEDS ORDERED: LIDOCAINE 1%/EPINEPHrine 1:100,000 SOLN 20 ML VIAL ONE (09:33)
[2017-06-20] MEDS ORDERED: VANCOMYCIN INJ 1,000 MG in SODIUM CHLOR 0.9% 250 ML INJ 250 ML IV ONE (10:00)
--- NOTE | 2017-06-20 11:12 | PD.RAD ---
Post CT Procedure Prog Note Pre Procedure Diagnosis: (1) Splenic abscess Post Procedure Diagnosis: (1) Splenic abscess Procedure Date: Jun 20, 2017 Supervising Radiologist: Abhijit De Los Santos Estimated blood loss: minimal Anesthesia: Conscious Sedation Plan of Activity Patient to Unit: ROPU Patient Condition: Good See PACS Report for procedural detail/treatment Drainage Procedure Procedure 1 Imaging Guidance: CT Side: Left Procedure Type: Abscess Drainage Procedure: Placement Spanish: 12 Drainage: Suction Fluid Removal (CCs): 60 Fluid Description: Bloody, Purulent, Red Findings: cloudy brownish red fluid removed 60cc. Plan to ROPU for monitoring then return to floor. Abhijit De Los Santos MD Jun 20, 2017 11:12
--- NOTE | 2017-06-20 11:56 | RADRPT ---
EXAM DATE/TIME: 06/20/2017 10:20 [facility] COMPARISON: CTA ABDOMEN & PELVIS W 3D RECON, June 19, 2017, 8:14. INDICATIONS : Splenic abscess. SEDATION TIME: 30 minutes MEDICATION(S): 1.) 4 mg midazolam (Versed) IV 2.) 200 mcg fentanyl (Sublimaze) IV DEVICE(S): 1.) 18 gauge Ku blunt needle 2.) 10 Fr Skater FLUID: Total volume of 60 cc of cloudy, red fluid was removed. Fluid was sent for laboratory ordered studies. MEDICAL HISTORY : Renal disease, end stage. Gastroesophageal reflux disease. Diabetes mellitus type 2. Cardiovascular d isease, hypertension, MRSA. SURGICAL HISTORY : Cholecystectomy, right oophorectomy. ENCOUNTER: Initial ACUITY: 1 day PAIN SCORE: 6/10 LOCATION: Left upper quadrant PROCEDURE: PROCEDURE : 1. CT guided drainage of the left upper quadrant/perisplenic air and fluid collection. 2. Conscious sedation with continuous EKG and oximetry monitoring. The risks, benefits and alternatives to the procedure were explained and verbal and written consent w as obtained. Using automated exposure control and adjustment of the mA and/or kV according to patient size, radiation dose was kept as low as reasonably achievable to obtain optimal diagnostic quality i mages. The site was prepped in sterile fashion. Full sterile technique was used, including cap, ma sk, sterile gloves and gown and a large sterile sheet. Hand hygiene and 2% chlorhexidine and/or beta dine/alcohol prep was utilized per protocol for cutaneous antisepsis. The skin and subcutaneous tiss ues were infiltrated with local anesthetic solution. DICOM format image data is available electronic ally for review and comparison. Using CT guidance the perisplenic fluid collection was localized. The fluid collection was accessed with an 18 gauge Ku needle with blunt tip. Guidewire was then placed and the tract was serially dilated up to a 10 Turkish size. A 10 Turkish locking skater catheter was then placed in the fluid hernan ection. Immediately, proximally 60 cc of red brownish somewhat purulent material was removed. The kwan in was then secured to the skin with suture and a sterile dressing applied. The patient tolerated the procedure well and there were no complications. Conscious sedation was per formed with the prescribed dosages and duration as above in the presence of an independent trained ra diology nurse to assist in the monitoring of the patient. EKG and oximetry remained stable throughou t the procedure. The patient tolerated the procedure well and there were no complications. The patient was sent to pos t anesthesia recovery in stable condition. CONCLUSION: Uncomplicated CT guided drainage of the left upper quadrant perisplenic fluid collection. Samples wer e saved and sent to lab for Gram stain and cultures. Abhijit De Los Santos MD on June 20, 2017 at 11:53 Board Certified Radiologist. This report was verified electronically.
--- NOTE | 2017-06-20 13:24 | HHI.IDPN ---
Subjective Subjective Remarks 47 y/o female with ESRD, on HD MWF, on Rx for Enterococcal and Kleb sepsis, being Rxd for possible endocarditis, found to have splenic infarct during last admission. Rx supposed to toña completed this month. Readmitted for CP and L shoulder pain. Cardiac work-up negative. Found now to have splenic abscess. has been afebrile. WBC normal. BC negative Notes reviewed Had percutaneous drainage of splenic abscess today Temps ok C/O pain at site Vanco level 15 Antibiotics Vanco Cefepime Flagyl Cipro Lines PIV Past Medical History ESRD, on dialysis Saturday and Saturday Hypertension CAD Hyperlipidemia Diabetes Hepatitis C Legally blind Prior miscarriage PVD Calciphylaxis Past Surgical History Cholecystectomy R UE AV fistula Right nephrectomy Dental extraction Tonsillectomy R BKA Allergies: Coded Allergies: codeine (Verified Allergy, Severe, HYPERACTIVITY &ITCH, 06/17/17) iodine (Verified Allergy, Severe, TOPICAL/ITCH, 06/17/17) potassium iodide (Verified Allergy, Severe, TOPICAL/ITCH, 06/17/17) povidone-iodine (Verified Allergy, Severe, TOPICAL/ITCH, 06/17/17) sodium iodide (Verified Allergy, Severe, TOPICAL/ITCH, 06/17/17) sodium iodide (Verified Allergy, Severe, TOPICAL/ITCH, 06/17/17) iohexol (Verified Allergy, Intermediate, HIVES, 06/17/17) Pork/Porcine Containing Products (Verified Allergy, Unknown, 06/17/17) penicillin G (Verified Allergy, Unknown, 06/17/17) Objective . Vital Signs Date Time Temp Pulse Resp B/P (MAP) Pulse Ox O2 Delivery O2 Flow Rate FiO2 06/20/17 11:45 65 18 121/79 (93) 97 06/20/17 11:30 97.6 61 18 114/56 (75) 92 06/20/17 11:30 97.6 61 20 114/56 (75) 92 06/20/17 08:38 73 06/20/17 08:32 Room Air 06/20/17 08:00 98.1 71 16 160/71 (100) 93 06/20/17 05:24 Room Air 06/20/17 04:00 97.7 72 20 130/60 (83) 95 06/20/17 00:50 Room Air 06/20/17 00:00 98.2 74 20 130/59 (82) 97 06/19/17 20:37 96 Nasal Cannula 2.00 06/19/17 20:01 74 06/19/17 20:00 98.2 80 22 134/62 (86) 95 06/19/17 20:00 Nasal Cannula 2.00 06/19/17 16:00 98.6 85 18 136/74 (94) 91 . Laboratory Tests Test 06/19/17 06:08 06/20/17 05:50 White Blood Count 9.4 TH/MM3 8.9 TH/MM3 Red Blood Count 3.16 MIL/MM3 3.31 MIL/MM3 Hemoglobin 10.1 GM/DL 10.1 GM/DL Hematocrit 29.8 % 31.1 % Mean Corpuscular Volume 94.4 FL 94.0 FL Mean Corpuscular Hemoglobin 31.9 PG 30.7 PG Mean Corpuscular Hemoglobin Concent 33.7 % 32.7 % Red Cell Distribution Width 17.1 % 16.8 % Platelet Count 308 TH/MM3 399 TH/MM3 Mean Platelet Volume 8.5 FL 8.0 FL Neutrophils (%) (Auto) 90.8 % 84.8 % Lymphocytes (%) (Auto) 5.9 % 8.3 % Monocytes (%) (Auto) 3.1 % 6.5 % Eosinophils (%) (Auto) 0.0 % 0.1 % Basophils (%) (Auto) 0.2 % 0.3 % Neutrophils # (Auto) 8.6 TH/MM3 7.6 TH/MM3 Lymphocytes # (Auto) 0.6 TH/MM3 0.7 TH/MM3 Monocytes # (Auto) 0.3 TH/MM3 0.6 TH/MM3 Eosinophils # (Auto) 0.0 TH/MM3 0.0 TH/MM3 Basophils # (Auto) 0.0 TH/MM3 0.0 TH/MM3 CBC Comment DIFF FINAL DIFF FINAL Differential Comment Laboratory Tests Test 06/19/17 06:08 06/20/17 05:50 Blood Urea Nitrogen 56 MG/DL 57 MG/DL Creatinine 8.12 MG/DL 6.55 MG/DL Random Glucose 290 MG/DL 292 MG/DL Total Protein 8.1 GM/DL 8.5 GM/DL Albumin 3.0 GM/DL 3.1 GM/DL Calcium Level 9.3 MG/DL 9.2 MG/DL Alkaline Phosphatase 96 U/L 97 U/L Aspartate Amino Transf (AST/SGOT) 8 U/L 5 U/L Alanine Aminotransferase (ALT/SGPT) 8 U/L 10 U/L Total Bilirubin 0.4 MG/DL 0.3 MG/DL Sodium Level 128 MEQ/L 129 MEQ/L Potassium Level 6.0 MEQ/L 4.9 MEQ/L Chloride Level 89 MEQ/L 88 MEQ/L Carbon Dioxide Level 22.2 MEQ/L 25.8 MEQ/L Anion Gap 17 MEQ/L 15 MEQ/L Estimat Glomerular Filtration Rate 5 ML/MIN 7 ML/MIN Microbiology Date/Time Source Procedure Growth Status 06/18/17 03:50 Blood Peripheral Aerobic Blood Culture - Preliminary NO GROWTH IN 2 DAYS Resulted 06/18/17 03:50 Blood Peripheral Anaerobic Blood Culture - Preliminary NO GROWTH IN 2 DAYS Resulted 06/18/17 03:45 Blood Peripheral Aerobic Blood Culture - Preliminary NO GROWTH IN 2 DAYS Resulted 06/18/17 03:45 Blood Peripheral Anaerobic Blood Culture - Preliminary NO GROWTH IN 2 DAYS Resulted 06/20/17 11:04 Fluid Other Gram Stain Pending Received 06/20/17 11:04 Fluid Other Body Fluid Culture Pending Received 06/20/17 11:04 Abscess Abdomen Fungal Smear Pending Received 06/20/17 11:04 Abscess Abdomen Fungal Culture Pending Received Imaging RADIOLOGY STUDIES/FILMS REVIEWED Abscess Drainage CT 06/20/17 0000 Signed Impressions: Service Date/Time: June 10:20 - CONCLUSION: Uncomplicated CT guided drainage of the left upper quadrant perisplenic fluid collection. Samples were saved and sent to lab for Gram stain and cultures. Abhijit De Los Santos MD Chest X-Ray 06/18/17 0600 Signed Impressions: Service Date/Time: Sunday, June 18, 2017 08:33 - CONCLUSION: 1. Linear airspace disease in the right middle lobe and lingula consistent with atelectasis. Differential considerations include aspiration in the appropriate clinical setting. Capo Liu MD Abdomen/Pelvis CT 06/18/17 0000 Signed Impressions: Service Date/Time: Monday, June 19, 2017 08:14 - CONCLUSION: 1. Interval development of air-containing fluid collection in the spleen measuring up to 6.9 x 3.0 cm in maximal dimension with subcapsular fluid in region of prior splenic infarction. This finding is concerning for splenic abscess. 2. Mild bibasilar ground glass opacities and platelike air space consolidation in the left lower lobe, likely atelectasis. 3. No significant aortic or mesenteric stenosis as questioned. 4. End-stage appearing kidneys. 5. Trace place pelvic free fluid. Findings were personally discussed with Dr. Johnston. Capo Liu MD Abdomen X-Ray 06/18/17 0000 Signed Impressions: Service Date/Time: Sunday, June 18, 2017 13:38 - CONCLUSION: 1. No acute abdominal abnormality is identified. There are no findings to indicate obstruction. 2. Severe renal artery vascular calcification. Abhijit De Los Santos MD Lung Scan-V Nuclear Medicine 06/17/17 0000 Signed Impressions: Service Date/Time: Saturday, June 17, 2017 16:03 - CONCLUSION: 1. Central trapping on the ventilatory images. Nonspecific but can be seen in COPD. 2. Otherwise, low probability scan for pulmonary embolus. Dennis Trimble MD Physical Exam GENERAL: awake and alert, not in respiratory distress. SKIN: Warm and dry. Has superficial round ulcers on face, with some crusting and some in her UE HEAD: Atraumatic. Normocephalic. No temporal wasting, or tenderness. EYES: Brimley conjunctiva. No petechia or hemorrhage. Pupils equal, round and reactive to light. Extraocular movements full and intact. No scleral icterus. No injection or drainage. EARS, NOSE AND THROAT: Nose without bleeding or purulent nasal discharge. No sinus tenderness. Mucous membranes pink and moist. No oral lesions noted. She is edentulous. NECK: Trachea midline. Supple and not tender, no meningeal signs CARDIOVASCULAR: Regular rate and rhythm. No murmurs, rubs or gallops heard RESPIRATORY: Clear to auscultation. Breath sounds equal bilaterally. No rales , wheezing or rhonchi ABDOMEN: Soft, nondistended, with diffuse abdominal tenderness, but no guarding or rebound. Bowel sounds present and normoactive. No organomegaly. EXTREMITIES: No clubbing, cyanosis, or edema. No joint effusion, has good ROM. No calf tenderness. Well perfused and warm. RUE AVF with no evidence of infection. S/P RBKA, well healed stump NEUROLOGICAL: Awake and alert. Cranial nerves grossly intact. Motor grossly within normal limits. PSYCHIATRIC: Normal affect, calm and cooperative. LINE: No evidence of infection Assessment & Plan Remarks IMPRESSION Enterococcal and Klebsiella bacteremia, on Rx for possible endocarditis, with splenic infarct - MARILU no vegetation done during last admission Splenic abscess, developed while on Rx for bacteremia ESRD, on HD MWF Hx IVDU, ?continued use of IVD Has skin lesions which according to patient is from calciphylaxis, ?popping or picking due to drugs RECOMMENDATION Continue IV Vancomycin, may not be adequate dosing because patient also getting RX for her calciphylaxis which ideally gfets given at end of her HD - concern if Vanco being dialyzed out since it is being give before the calciphylaxis Rx - will change timing of Vanco IV Cefepime and Flagyl Follow new C/S Monitor prCarrie Noriega MD Jun 20, 2017 13:24
--- NOTE | 2017-06-20 13:25 | HHI.NPPN ---
Subjective History of Present Illness Patient is a 47-year-old the female with history of end-stage renal disease, diabetes, blindness, peripheral vascular disease, calciphylaxis, ischemic left foot, previous right BKA who has certainly admitted with the chest pain she's described the pain in the left side radiating to his left shoulder, patient has similar complaints a few weeks ago, and was discharged after workup She goes to dialysis on Saturday, Saturday and Saturday Additional Remarks no relief from abdominal pain Review of Systems Cardiovascular Cardiac: Chest Pain Objective Data Data Vital Signs Date Time Temp Pulse Resp B/P (MAP) Pulse Ox O2 Delivery O2 Flow Rate FiO2 06/20/17 11:45 65 18 121/79 (93) 97 06/20/17 11:30 97.6 61 18 114/56 (75) 92 06/20/17 11:30 97.6 61 20 114/56 (75) 92 06/20/17 08:38 73 06/20/17 08:32 Room Air 06/20/17 08:00 98.1 71 16 160/71 (100) 93 06/20/17 05:24 Room Air 06/20/17 04:00 97.7 72 20 130/60 (83) 95 06/20/17 00:50 Room Air 06/20/17 00:00 98.2 74 20 130/59 (82) 97 06/19/17 20:37 96 Nasal Cannula 2.00 06/19/17 20:01 74 06/19/17 20:00 98.2 80 22 134/62 (86) 95 06/19/17 20:00 Nasal Cannula 2.00 06/19/17 16:00 98.6 85 18 136/74 (94) 91 -: 06/20/17 0550 06/20/17 0550 Microbiology 06/20/17 Gram Stain, Received Pending 06/20/17 Body Fluid Culture, Received Pending 06/20/17 Fungal Smear, Received Pending 06/20/17 Fungal Culture, Received Pending Physical Exam General Appearance: Well Developed, Well Nourished Neck Neck Exam: Neck Supple Pulmonary Resp Exam: Clear Bilaterally, Breath Sounds Equal Cardiology CV Exam: Regular Gastrointestinal/Abdomen GI Exam: Soft, Non-Tender, Bowel Sounds Present Extremeties Extremities Exam: Trace Edema Extremeties Remarks ischemic l foot Assessment/Plan Problem List: (1) ESRD (end stage renal disease) on dialysis ICD Codes: N18.6 - End stage renal disease; Z99.2 - Dependence on renal dialysis Status: Chronic Plan: HD MWF Hemodialysis Yesterday UF 5 L She has calciphylaxis and received sodium thiosulfate splenic fluid collection check c/s (2) Hyperkalemia ICD Codes: E87.5 - Hyperkalemia Status: Resolved Plan: Hemodialysis planned (3) Calciphylaxis ICD Codes: E83.59 - Other disorders of calcium metabolism Status: Acute Plan: Continue with sodium thiosulfate (4) Peripheral vascular disease ICD Codes: I73.9 - Peripheral vascular disease, unspecified Status: Acute Plan: Had previous procedures done (5) Diabetes ICD Codes: E11.9 - Type 2 diabetes mellitus without complications Status: Chronic Plan: Monitor blood glucose (6) Hypertension ICD Codes: I10 - Essential (primary) hypertension Status: Acute Plan: Continue to monitor blood pressure (7) Chest pain ICD Codes: R07.9 - Chest pain, unspecified Status: Acute Plan: as above follow VQ scan Problem Qualifiers (1) Diabetes: (2) Hypertension: Qualified Codes: I10 - Essential (primary) hypertension (3) Chest pain: Qualified Codes: R07.9 - Chest pain, unspecified Gerri Gilbert MD Jun 20, 2017 13:25
--- NOTE | 2017-06-20 16:11 | HHI.PR ---
Subjective Subjective Notes Sitting up in bed Going for CT drainage today Objective Vitals/I&O Vital Signs Date Time Temp Pulse Resp B/P (MAP) Pulse Ox O2 Delivery O2 Flow Rate FiO2 06/20/17 12:00 97.5 68 16 116/52 (73) 90 06/20/17 08:32 Room Air 06/19/17 20:37 2.00 Labs Laboratory Tests Test 06/20/17 05:50 White Blood Count 8.9 Red Blood Count 3.31 Hemoglobin 10.1 Hematocrit 31.1 Mean Corpuscular Volume 94.0 Mean Corpuscular Hemoglobin 30.7 Mean Corpuscular Hemoglobin Concent 32.7 Red Cell Distribution Width 16.8 Platelet Count 399 Mean Platelet Volume 8.0 Neutrophils (%) (Auto) 84.8 Lymphocytes (%) (Auto) 8.3 Monocytes (%) (Auto) 6.5 Eosinophils (%) (Auto) 0.1 Basophils (%) (Auto) 0.3 Neutrophils # (Auto) 7.6 Lymphocytes # (Auto) 0.7 Monocytes # (Auto) 0.6 Eosinophils # (Auto) 0.0 Basophils # (Auto) 0.0 CBC Comment DIFF FINAL Differential Comment Blood Urea Nitrogen 57 Creatinine 6.55 Random Glucose 292 Total Protein 8.5 Albumin 3.1 Calcium Level 9.2 Alkaline Phosphatase 97 Aspartate Amino Transf (AST/SGOT) 5 Alanine Aminotransferase (ALT/SGPT) 10 Total Bilirubin 0.3 Sodium Level 129 Potassium Level 4.9 Chloride Level 88 Carbon Dioxide Level 25.8 Anion Gap 15 Estimat Glomerular Filtration Rate 7 Random Vancomycin Level 15.2 Date/Time Source Procedure Growth Status 06/18/17 03:50 Blood Peripheral Aerobic Blood Culture - Preliminary NO GROWTH IN 2 DAYS Resulted 06/18/17 03:50 Blood Peripheral Anaerobic Blood Culture - Preliminary NO GROWTH IN 2 DAYS Resulted 06/20/17 11:04 Fluid Other Gram Stain Pending Received 06/20/17 11:04 Fluid Other Body Fluid Culture Pending Received 06/20/17 11:04 Abscess Abdomen Fungal Smear Pending Received 06/20/17 11:04 Abscess Abdomen Fungal Culture Pending Received Radiology Last 48 hours Impressions Chest X-Ray 11/7/17 0600 Signed Impressions: Service Date/Time: Sunday, June 18, 2017 08:33 - CONCLUSION: 1. Linear airspace disease in the right middle lobe and lingula consistent with atelectasis. Differential considerations include aspiration in the appropriate clinical setting. Capo Liu MD Abdomen/Pelvis CT 06/18/17 0000 Signed Impressions: Service Date/Time: Monday, June 19, 2017 08:14 - CONCLUSION: 1. Interval development of air-containing fluid collection in the spleen measuring up to 6.9 x 3.0 cm in maximal dimension with subcapsular fluid in region of prior splenic infarction. This finding is concerning for splenic abscess. 2. Mild bibasilar ground glass opacities and platelike air space consolidation in the left lower lobe, likely atelectasis. 3. No significant aortic or mesenteric stenosis as questioned. 4. End-stage appearing kidneys. 5. Trace place pelvic free fluid. Findings were personally discussed with Dr. Johnston. Capo Liu MD Abdomen X-Ray 06/18/17 0000 Signed Impressions: Service Date/Time: Sunday, June 18, 2017 13:38 - CONCLUSION: 1. No acute abdominal abnormality is identified. There are no findings to indicate obstruction. 2. Severe renal artery vascular calcification. Abhijit De Los Santos MD Cardiovascular: Regular Lungs: Clear Abdomen: Non-distended, Non-tender Extremities: No edema A/P Assessment and Plan 47 year old female with multiple medical issues; with splenic abscess -Plan for IR drainage today -ID following -Continue to follow fevers/WBC -Diet as tolerated -We will be available if needed Seen on rounds, clinically stable. Agree with drain placement. DW Dr. Campbell Will be available if surgery required. Please call. Thanks IFEOMA GIBSON MD [facility] Dawna Spangler Jun 20, 2017 16:11 Ifeoma Gibson MD Jun 21, 2017 07:49
[2017-06-20] MEDS: CEFEPIME INJ 2,000 MG in SODIUM CHLORIDE 0.9% INJ 100 ML IV SCH (17:26)
[2017-06-20] MEDS: SEVELAMER CARBONATE 800 MG TAB PO SCH (18:36)
[2017-06-20] MEDS: REMOVE OLD PATCH T-DERMAL SCH (21:00)
[2017-06-20] MEDS ORDERED: INSULIN DETEMIR 100 UNITS/ML VIAL SQ SCH (21:00)
[2017-06-20] MEDS: traZODone HCL 50 MG TAB PO SCH (21:24)
[2017-06-20] MEDS: LISINOPRIL 20 MG TAB PO SCH (21:24)
[2017-06-20] MEDS: INSULIN DETEMIR 100 UNITS/ML VIAL SQ SCH (21:25)
[2017-06-21] VITALS (7 sets, daily range): BP systolic 103–135; BP diastolic 52–63; PULSE 70–82; RESP 16–18; TEMP 97.9–98.5; O2SAT 91–99
[2017-06-21] MEDS: oxyCODONE/ACETAMINOPHEN 5 MG/325 MG TAB PO PRN ×2 (00:25→06:34)
[2017-06-21] MEDS: MORPHINE SULFATE 2 MG/ML INJ IV PUSH PRN (02:20)
[2017-06-21] MEDS: metroNIDAZOLE 500 MG TAB PO SCH ×3 (06:34→21:46)
[2017-06-21] MEDS: INSULIN ASPART SUPPLEMENTAL SCALE SQ SCH ×4 (08:00→21:00)
[2017-06-21] MEDS ORDERED: VANCOMYCIN INJ 1,000 MG in SODIUM CHLOR 0.9% 250 ML INJ 250 ML IV SCH (08:00)
[2017-06-21 08:36] LABS: AUTOMATED NEUTROPHIL # 5.8 TH/MM3 (1.8-7.7); BASOPHIL % 0.6 % (0.0-2.0); EOSINOPHIL # 0.1 TH/MM3 (0-0.4); EOSINOPHIL % 1.3 % (0.0-4.0); HEMATOCRIT 32.6 % (35.0-46.0); HEMO FLAGS DIFF FINAL; LYMPHOCYTE # 1.3 TH/MM3 (1.0-4.8); MEAN CELL VOLUME 95.9 FL (80.0-100.0); MEAN CORPUSCULAR HEMOGLOBIN 31.8 PG (27.0-34.0); MEAN CORPUSCULAR HGB CONC 33.2 % (32.0-36.0); MONO % 12.1 % (0.0-8.0); PLATELET COUNT 410 TH/MM3 (150-450); RED CELL DISTRIBUTION WIDTH 17.6 % (11.6-17.2); WHITE BLOOD COUNT 8.3 TH/MM3 (4.0-11.0)
[2017-06-21] MEDS: ALBUMIN 25% INJ 100 ML IV PRN ×2 (09:29→09:31)
[2017-06-21 10:00] LABS: ALKALINE PHOSPHATASE 107 U/L (45-117); ALT (GPT) 12 U/L (10-53); ANION GAP 20 MEQ/L (5-15); AST (GOT) 9 U/L (15-37); BICARBONATE 20.3 MEQ/L (21.0-32.0); BLOOD UREA NITROGEN 81 MG/DL (7-18); CHLORIDE 88 MEQ/L (98-107); GLOMERULAR FILTRATION RATE 6 ML/MIN (>89); POTASSIUM 4.9 MEQ/L (3.5-5.1); SODIUM (NA) 128 MEQ/L (136-145); TOTAL BILIRUBIN ADULT 0.4 MG/DL (0.2-1.0)
[2017-06-21] MEDS: SODIUM THIOSULFATE INJ 25,000 MG in WATER STERILE FOR INJ 100 ML IV PRN (10:30)
--- NOTE | 2017-06-21 11:45 | HHI.NPPN ---
Subjective History of Present Illness Patient is a 47-year-old the female with history of end-stage renal disease, diabetes, blindness, peripheral vascular disease, calciphylaxis, ischemic left foot, previous right BKA who has certainly admitted with the chest pain she's described the pain in the left side radiating to his left shoulder, patient has similar complaints a few weeks ago, and was discharged after workup She goes to dialysis on Saturday, Saturday and Saturday Additional Remarks some relief from abdominal pain patient is sleeping a lot Review of Systems Cardiovascular Cardiac: Chest Pain Objective Data Data 06/21/17 06/22/17 19:00 07:00 Output Total 1500 ml Balance -1500 ml Hemodialysis 1500 ml Vital Signs Date Time Temp Pulse Resp B/P (MAP) Pulse Ox O2 Delivery O2 Flow Rate FiO2 06/21/17 09:01 96 06/21/17 08:00 98.0 70 18 120/52 (74) 91 06/21/17 04:44 Room Air 06/21/17 00:21 Room Air 06/21/17 00:00 97.9 70 18 103/59 (74) 95 06/20/17 21:32 21 06/20/17 20:07 65 06/20/17 20:00 98.1 81 16 112/56 (74) 98 06/20/17 20:00 Room Air 06/20/17 16:00 98.0 64 16 106/50 (68) 97 06/20/17 12:00 97.5 68 16 116/52 (73) 90 06/20/17 11:45 65 18 121/79 (93) 97 -: 06/21/17 0530 06/21/17 0530 Physical Exam General Appearance: Well Developed, Well Nourished Neck Neck Exam: Neck Supple Pulmonary Resp Exam: Clear Bilaterally, Breath Sounds Equal Cardiology CV Exam: Regular Gastrointestinal/Abdomen GI Exam: Soft, Non-Tender, Bowel Sounds Present Extremeties Extremities Exam: Trace Edema Extremeties Remarks ischemic l foot Assessment/Plan Problem List: (1) ESRD (end stage renal disease) on dialysis ICD Codes: N18.6 - End stage renal disease; Z99.2 - Dependence on renal dialysis Status: Chronic Plan: HD MWF Hemodialysis today UF 1.5 L drops BP frequently seen at HD on pain medications, very sleepy She has calciphylaxis and received sodium thiosulfate splenic fluid collection check c/s (2) Hyperkalemia ICD Codes: E87.5 - Hyperkalemia Status: Acute Plan: Hemodialysis planned (3) Calciphylaxis ICD Codes: E83.59 - Other disorders of calcium metabolism Status: Acute Plan: Continue with sodium thiosulfate (4) Peripheral vascular disease ICD Codes: I73.9 - Peripheral vascular disease, unspecified Status: Acute Plan: Had previous procedures done (5) Diabetes ICD Codes: E11.9 - Type 2 diabetes mellitus without complications Status: Chronic Plan: Monitor blood glucose (6) Hypertension ICD Codes: I10 - Essential (primary) hypertension Status: Chronic Plan: Continue to monitor blood pressure (7) Chest pain ICD Codes: R07.9 - Chest pain, unspecified Status: Acute Plan: as above follow VQ scan Problem Qualifiers (1) Diabetes: (2) Hypertension: Qualified Codes: I10 - Essential (primary) hypertension (3) Chest pain: Qualified Codes: R07.9 - Chest pain, unspecified Gerri Gilbert MD Jun 21, 2017 11:45
--- NOTE | 2017-06-21 11:49 | HHI.FPPN ---
Subjective Remarks Ms Laguerre had no acute events overnight. She has abdominal pain this morning in her LUQ wrapping around to where the surgical drain is placed in her left lateral upper abdomen. The interview occurred during her HD session. She is voiding and stooling and tolerating PO. There is no N/V/D, CP, SOB, DVT pain. (Jaylan Grey MD R1) Objective Vitals Vital Signs Date Time Temp Pulse Resp B/P (MAP) Pulse Ox O2 Delivery O2 Flow Rate FiO2 06/21/17 09:01 96 06/21/17 08:00 98.0 70 18 120/52 (74) 91 06/21/17 04:44 Room Air 06/21/17 00:21 Room Air 06/21/17 00:00 97.9 70 18 103/59 (74) 95 06/20/17 21:32 21 06/20/17 20:07 65 06/20/17 20:00 98.1 81 16 112/56 (74) 98 06/20/17 20:00 Room Air 06/20/17 16:00 98.0 64 16 106/50 (68) 97 06/20/17 12:00 97.5 68 16 116/52 (73) 90 I/O 06/20/17 06/20/17 06/20/17 06/21/17 06/21/17 06/21/17 07:00 15:00 23:00 07:00 15:00 23:00 Intake Total 460 ml 620 ml Output Total 30 ml 15 ml 1500 ml Balance 430 ml 605 ml -1500 ml Intake Oral 360 ml 620 ml IV Total 100 ml Drainage Total 30 ml 15 ml Hemodialysis 1500 ml # Voids 1 # Bowel Movements 0 1 (Jaylan Grey MD R1) Result Diagram: 06/21/1752906/21/17529 Objective Remarks O. CONSTITUTIONAL/GEN: normally nourished, sitting in bed in the dialysis suite getting HD, appears mildly uncomfortable. EYES: conjunctiva normal, EOMI. ENT: Mouth and pharynx normal. Poor dentition. Trachea midline. LUNGS: CTAB but poor effort. No increased WOB. CARDIOVASCULAR: RRR without murmur or gallop. No significant edema. 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 Hyperpigmentation distal left lower extremity. HEME/LYMPH: no bruising, petechia or significant adenopathy MUSC: Moves all extremities spontaneously with normal strength; RLE BKA. PSYCH/MENTAL STATUS: Alert and oriented x 3. Procedures splenic abscess drainage by IR 06/20/17 Medications and IVs Current Medications Medications (Trade) Dose Ordered Sig/Jen Route Start Time Stop Time Status Last Admin Sodium Chloride 1,000 ml @ 0 mls/hr Q0M PRN OTHER 06/17/17 13:27 (Heparin Inj) 8,000 units UNSCH PRN IV FLUSH 06/17/17 13:30 Sodium Chloride 1,000 ml @ 200 mls/hr Q5H PRN IV 06/17/17 13:27 Sodium Chloride 1,000 ml @ 0 mls/hr Q0M PRN OTHER 06/17/17 13:27 (Mannitol Inj) 12.5 gm UNSCH PRN IV 06/17/17 13:30 Albumin Human 100 ml @ 60 mls/hr UNSCH PRN IV 06/17/17 13:30 06/21/17 09:31 (NS Flush) 5 ml UNSCH PRN IV FLUSH 06/17/17 13:30 (Heparin Inj) UNSCH PRN .XX 06/17/17 13:30 (Gentamicin (Dialysis) Inj) 20 mg UNSCH PRN OTHER 06/17/17 13:30 (Zofran Inj) 4 mg UNSCH PRN IV PUSH 06/17/17 13:30 (Tylenol) 650 mg UNSCH PRN PO 06/17/17 13:30 (Benadryl) 25 mg UNSCH PRN PO 06/17/17 13:30 06/19/17 17:12 (Nitrostat Sl) 0.4 mg UNSCH PRN SL 06/17/17 13:30 (Catapres) 0.1 mg UNSCH PRN PO 06/17/17 13:30 (Epogen Inj) 4,000 units UNSCH PRN IV PUSH 06/17/17 13:30 06/19/17 10:43 (Gelfoam 12 Mm/7 Mm Top) 1 foam UNSCH PRN TOP 06/17/17 13:30 06/19/17 10:43 Sodium Thiosulfate 69334 mg/Sterile Water 200 ml @ 150 mls/hr WITH DIALYSIS PRN IV 06/17/17 13:30 06/21/17 10:30 (NS Flush) 2 ml UNSCH PRN IV FLUSH 06/17/17 14:45 (NS Flush) 2 ml BID IV FLUSH 06/17/17 21:00 06/20/17 21:26 (Zofran Inj) 4 mg Q6H PRN IVP 06/17/17 18:00 (Narcan Inj) 0.4 mg UNSCH PRN IV PUSH 06/17/17 14:45 (Areli-Colace) 2 tab BID PO 06/17/17 21:00 06/17/17 20:52 (D50w (Vial) Inj) 50 ml UNSCH PRN IV PUSH 06/17/17 15:00 (Glucagon Inj) 1 mg UNSCH PRN OTHER 06/17/17 15:00 (NovoLOG SUPPLEMENTAL SCALE) 1 ACHS SLIDING SCALE SQ 06/17/17 17:00 06/20/17 21:25 (Norvasc) 10 mg DAILY PO 06/18/17 09:00 06/20/17 08:19 (Coreg) 25 mg BID PO 06/17/17 21:00 06/20/17 21:26 (Vitamin D3) 5,000 units DAILY PO 06/18/17 09:00 06/20/17 08:19 (Zoloft) 100 mg DAILY PO 06/18/17 09:00 06/20/17 08:19 (Nephrocaps) 1 cap DAILY PO 06/18/17 09:00 06/20/17 08:19 (Protonix) 40 mg DAILY PO 06/17/17 15:00 06/20/17 08:19 (Tylenol) 500 mg Q6H PRN PO 06/17/17 18:00 (Cipro) 750 mg DAILY PO 06/18/17 09:00 06/20/17 08:19 (Habitrol 7 Mg Patch.24 Hr) 1 patch DAILY T-DERMAL 06/18/17 09:00 06/20/17 08:21 Miscellaneous Information 1 HS T-DERMAL 06/17/17 21:00 06/20/17 21:00 (Morphine Inj) 4 mg Q3H PRN IV PUSH 06/19/17 14:15 06/21/17 02:20 (Percocet 5-325 Mg) 1 tab Q4H PRN PO 06/19/17 12:30 (Percocet 5-325 Mg) 2 tab Q6H PRN PO 06/19/17 12:30 06/21/17 06:34 Cefepime HCl 2000 mg/Sodium Chloride 100 ml @ 200 mls/hr Q24H IV 06/19/17 16:00 06/20/17 17:26 (Flagyl) 500 mg Q8HR PO 06/19/17 14:00 06/21/17 06:34 (Desyrel) 50 mg HS PO 06/19/17 21:00 06/20/17 21:24 (Miralax) 17 gm DAILY PO 06/20/17 09:00 06/20/17 08:19 (Prinivil) 20 mg BID PO 06/20/17 21:00 06/20/17 21:24 (Levemir Inj) 5 units BID SQ 06/20/17 21:00 06/20/17 21:25 Vancomycin HCl 1000 mg/Sodium Chloride 250 ml @ 250 mls/hr WITH DIALYSIS IV 06/21/17 08:00 06/21/17 09:35 (Renvela) 3,200 mg TIDPC PO 06/20/17 18:30 06/20/17 18:36 (Jaylan Grey MD R1) Urinary Catheter: No (Jaylan Grey MD R1) Vascular Central Line Catheter: No (Jayaln Grey MD R1) A/P Assessment and Plan 47-year-old female with a past medical history of end-stage renal disease, diabetes, hypertension, PAD, recently discharged from the hospital on 03 June where she was found to have an acute splenic infarction, presented with a one-day history of chest pain and left shoulder pain as well as elevated potassium and creatinine. She was admitted to the hospital for dialysis and ACS rule out and was found to have a splenic abscess identified on CTA performed on 06/19/17. Plan is for a drain placed by IR today General surgery has been consulted in case there is a need for surgical management. ID is assisting with antibiotic management. Will discuss with Dr. Real. Seen with Dr. Grey Discharge Planning Pending management of splenic abscess (Jaylan Grey MD R1) Attending Attestation Patient seen and examined. Case reviewed and discussed Agree with plan of care as discussed with me and documented in the resident note. (Irene Davis MD) Problem List: (1) Splenic abscess ICD Codes: D73.3 - Abscess of spleen Status: Acute Plan: -CTA performed on 06/19 shows interval development of air-containing fluid collection in the spleen measuring up to 6.9 x 3.0 cm in maximal dimension with subcapsular fluid in region of prior splenic infarction, concerning for splenic abscess. No significant aortic or mesenteric stenoses identified -Interventional radiology drained abscess 06/20/17--serosanguinous drainage 45ml overnight and 15ml this morning -Gen. surgery consulted and agrees with IR drainage placement -ID consulted - continue vancomycin for previously diagnosed bacteremia with changing timing. -Continue IV cefepime 2 g every 24 hours and Flagyl IV 500 mg by mouth every 8 hours -Cultures of drained abscess fluid pending Antibiotic history -Cefepime 2 g IV every 24 hours: Received 2 doses (started 06/19-06/20)-- discontinued -Flagyl 500 mg every 8 hours on received 6 doses so far (2) ESRD (end stage renal disease) on dialysis ICD Codes: N18.6 - End stage renal disease; Z99.2 - Dependence on renal dialysis Status: Chronic Plan: -Hemodialysis MWF per nephrology recommendations, Dr. Gilbert on board (3) Hyperkalemia ICD Codes: E87.5 - Hyperkalemia Status: Acute Plan: -Fluctuating levels of potassium -Dialysis as above (4) History of bacteremia ICD Codes: Z87.898 - Personal history of other specified conditions Status: Acute Plan: -History of bacteremia with recurrent fever secondary to Enterococcus and Klebsiella on last admission -Patient was being treated for enterococcus bacteremia with vancomycin 1 g 3 times a week (MWF) after hemodialysis and Ciprofloxacin PO -Discussed with nephrology to arrange for IV vanco with HD, patient completes 28 days -Continue Cipro 750mg PO daily to complete 28 days Antibiotic history -Vancomycin 1 g IV, MWF after dialysis - started on 05/29 - calculated 8 doses so far -Ciprofloxacin 750 mg by mouth daily - started on 06/03 - calculated 18 doses (5) Hypertension ICD Codes: I10 - Essential (primary) hypertension Status: Chronic Plan: -BP 160/70 in the a.m. -Continue home medications: Amlodipine and Coreg, resume lisinopril (6) Diabetes ICD Codes: E11.9 - Type 2 diabetes mellitus without complications Status: Chronic Plan: -Takes insulin glargine 25 units subcutaneous twice a day at home -Continue glucose monitoring with sliding scale insulin -Required 16 units on 06/20 with blood glucose ranging from 382-272. Started Levemir 5 units subcutaneous twice a day -Continue SSI (Low) (7) Peripheral vascular disease ICD Codes: I73.9 - Peripheral vascular disease, unspecified Status: Acute Plan: -Holding Plavix 75 mg by mouth daily for IR procedure (8) Calciphylaxis ICD Codes: E83.59 - Other disorders of calcium metabolism Status: Acute Plan: -Continue thiosulfate per nephrology (9) Tobacco abuse ICD Codes: Z72.0 - Tobacco use Status: Chronic Plan: -Nicotine patch 7 mg (10) Physical deconditioning ICD Codes: R53.81 - Other malaise Status: Chronic Plan: -PT consulted to assist with ambulation and exercises (11) Chronic Medical Problems Status: Chronic Plan: Diabetic neuropathy: Holding gabapentin 400 mg by mouth 3 times a day Hyperlipidemia: Continue Atorvastin, Pravastatin Anxiety/Depression: Continue sertraline 100 mg by mouth daily, continue trazodone 50 mg by mouth at bedtime (12) Hyperphosphatemia ICD Codes: E83.39 - Other disorders of phosphorus metabolism Status: Resolved Plan: -Restarted Renvela 3200mg TID on 06/20 -Follow Phos (13) FEN/DVT PPX/GI PPX/Nursing Orders Plan: Fluids: Oral fluids only, on hemodialysis Electrolytes: Will monitor and replace as needed Nutrition: Renal diet, nothing by mouth at midnight for procedure DVT Prophylaxis: Unilateral SCDs, holding Eliquis 2.5 mg by mouth twice a day for IR procedure GI Prophylaxis: None currently PRN Medications Tylenol 650 mg by mouth every 4 hours when necessary pain 1-10 or temperature greater than 100.4F Zofran 4 mg IV push every 6 hours when necessary nausea vomiting Percocet 325-5 mg 1 tab by mouth every 6 hours when necessary pain 1-5 Percocet 325-10 mg 1 tab by mouth every 6 hours when necessary pain 6-10 Morphine 4 mg IV every 3 hours when necessary breakthrough pain -Vitals Q4h -Monitor I's and O's -Fall precautions -Neurochecks -Seizure precautions -playground monitor with telemetry with continuous vital signs -Activity OOB with assistance -PT to assist with ambulation -Case management consult to assist with discharge disposition Disposition: Possibly in the next 1-2 days pending clinical improvement and infectious disease recommendation (Jaylan Grey MD R1) Problem Qualifiers (1) Hypertension: Qualified Codes: I10 - Essential (primary) hypertension (2) Diabetes: Jaylan Grey MD R1 Jun 21, 2017 11:49 Irene Davis MD Jul 01, 2017 16:36
[2017-06-21] MEDS: SEVELAMER CARBONATE 800 MG TAB PO SCH ×3 (13:30→18:13)
[2017-06-21] MEDS: CHOLECALCIFEROL (VIT D3) 5000 UNIT CAP PO SCH (13:33)
[2017-06-21] MEDS: DOCUSATE SODIUM 50 MG/SENNA 8.6 MG TAB PO SCH ×2 (13:34→21:46)
[2017-06-21] MEDS: CIPROFLOXACIN 750 MG TAB PO SCH (13:34)
[2017-06-21] MEDS: VITAMIN B CMPLX/VITC/FOLIC AC CAP PO SCH (13:34)
[2017-06-21] MEDS: PANTOPRAZOLE SOD 40 MG DELAYED RELEASE TAB PO SCH (13:34)
[2017-06-21] MEDS: LISINOPRIL 20 MG TAB PO SCH ×2 (13:34→21:00)
[2017-06-21] MEDS: SERTRALINE HCL 100 MG TAB PO SCH (13:35)
[2017-06-21] MEDS: CARVEDILOL 12.5 MG TAB PO SCH ×2 (13:35→21:46)
[2017-06-21] MEDS: NICOTINE 7 MG/24 HR PATCH T-DERMAL SCH (13:38)
[2017-06-21] MEDS: SODIUM CHLORIDE 0.9% FLUSH 10 ML FLUSH IV FLUSH SCH ×2 (14:18→21:47)
[2017-06-21] MEDS: POLYETHYLENE GLYCOL 17 GM PKG PO SCH (14:18)
[2017-06-21] MEDS: INSULIN DETEMIR 100 UNITS/ML VIAL SQ SCH ×2 (14:19→21:00)
--- NOTE | 2017-06-21 14:21 | HHI.FPPN ---
Addendum to progress note ADDENDUM Reason for addendum: Additonal documentation Additional information S: Paged at 1347hours by nursing for Pt Shade not being at her normal cognitive level--only alert and oriented to name only. Ellen Davis, Preston and Matilda responded to beside. Pt oriented to name and place only and having memory lapses, saying "what's wrong with me?" Denies taking any additional medications and states she is not tired, but is somnolent and not attending to the interview. Pt not SOB or complaints of pain. O: Vital Signs Date Time Temp Pulse Resp B/P (MAP) Pulse Ox O2 Delivery O2 Flow Rate FiO2 06/21/17 13:00 98.5 77 18 133/63 (86) 91 06/21/17 04:44 Room Air 06/20/17 21:32 21 06/19/17 20:37 2.00 GENERAL: Well-nourished, obese patient lying in bed and somnolent during interview. SKIN: Warm and dry. Lesions from calciphylaxis on her face HEAD: Normocephalic. Atraumatic. EYES: No scleral icterus. No injection or drainage. NECK: Supple, trachea midline. No JVD or lymphadenopathy. CARDIOVASCULAR: Regular rate and rhythm without murmurs, gallops, or rubs. RESPIRATORY: Breath sounds equal bilaterally. No accessory muscle use. GASTROINTESTINAL: Abdomen soft, non-tender, nondistended. Voices that she is still in pain, but no wincing/tenderness to palpation EXTREMITIES: No cyanosis, or edema. Right BKA c/d/i. NEUROLOGICAL: Awake, alert, and oriented only to name and place, not year. Non- focal. A/P: 47YO female w/HTN, HLD, ESRD on HD s/p HD (took off 1500ml) this morning and s/p splenic abscess IR drain on 06/19 and paged for cognitive decline w/ mental and memory lapses and inattention to the interview. Exam benign except for inattention to interview; VS stable except for O2 sat low @91% RA. DDx: delirium vs. pain medication vs. post-dialysis fatigue/electrolyte imbalance -Blood Glucose checks -BMP pending -Lipase 120 -Neuro checks -Supplemental O2 (Jaylan Grey MD R1) Jaylan Grey MD R1 Jun 21, 2017 14:21 Irene Davis MD Jul 01, 2017 16:36
--- NOTE | 2017-06-21 15:25 | HHI.IDPN ---
Subjective Subjective Remarks 47 y/o female with ESRD, on HD MWF, on Rx for Enterococcal and Kleb sepsis, being Rxd for possible endocarditis, found to have splenic infarct during last admission. Rx supposed to toña completed this month. Readmitted for CP and L shoulder pain. Cardiac work-up negative. Found now to have splenic abscess. has been afebrile. WBC normal. BC negative Notes reviewed Had percutaneous drainage of splenic abscess C/S GNR and GPR Temps ok C/O pain at site Antibiotics Vanco Cefepime Flagyl Cipro Lines PIV Past Medical History ESRD, on dialysis Saturday and Saturday Hypertension CAD Hyperlipidemia Diabetes Hepatitis C Legally blind Prior miscarriage PVD Calciphylaxis Past Surgical History Cholecystectomy R UE AV fistula Right nephrectomy Dental extraction Tonsillectomy R BKA Allergies: Coded Allergies: codeine (Verified Allergy, Severe, HYPERACTIVITY &ITCH, 06/17/17) iodine (Verified Allergy, Severe, TOPICAL/ITCH, 06/17/17) potassium iodide (Verified Allergy, Severe, TOPICAL/ITCH, 06/17/17) povidone-iodine (Verified Allergy, Severe, TOPICAL/ITCH, 06/17/17) sodium iodide (Verified Allergy, Severe, TOPICAL/ITCH, 06/17/17) sodium iodide (Verified Allergy, Severe, TOPICAL/ITCH, 06/17/17) iohexol (Verified Allergy, Intermediate, HIVES, 06/17/17) Pork/Porcine Containing Products (Verified Allergy, Unknown, 06/17/17) penicillin G (Verified Allergy, Unknown, 06/17/17) Objective . Vital Signs Date Time Temp Pulse Resp B/P (MAP) Pulse Ox O2 Delivery O2 Flow Rate FiO2 06/21/17 13:00 98.5 77 18 133/63 (86) 91 06/21/17 09:01 96 06/21/17 08:00 98.0 70 18 120/52 (74) 91 06/21/17 04:44 Room Air 06/21/17 00:21 Room Air 06/21/17 00:00 97.9 70 18 103/59 (74) 95 06/20/17 21:32 21 06/20/17 20:07 65 06/20/17 20:00 98.1 81 16 112/56 (74) 98 06/20/17 20:00 Room Air 06/20/17 16:00 98.0 64 16 106/50 (68) 97 06/21/17 06/21/17 06/22/17 15:00 23:00 07:00 Output Total 1500 ml Balance -1500 ml Hemodialysis 1500 ml . Laboratory Tests Test 06/20/17 05:50 06/21/17 05:30 White Blood Count 8.9 TH/MM3 8.3 TH/MM3 Red Blood Count 3.31 MIL/MM3 3.40 MIL/MM3 Hemoglobin 10.1 GM/DL 10.8 GM/DL Hematocrit 31.1 % 32.6 % Mean Corpuscular Volume 94.0 FL 95.9 FL Mean Corpuscular Hemoglobin 30.7 PG 31.8 PG Mean Corpuscular Hemoglobin Concent 32.7 % 33.2 % Red Cell Distribution Width 16.8 % 17.6 % Platelet Count 399 TH/MM3 410 TH/MM3 Mean Platelet Volume 8.0 FL 8.2 FL Neutrophils (%) (Auto) 84.8 % 70.0 % Lymphocytes (%) (Auto) 8.3 % 16.0 % Monocytes (%) (Auto) 6.5 % 12.1 % Eosinophils (%) (Auto) 0.1 % 1.3 % Basophils (%) (Auto) 0.3 % 0.6 % Neutrophils # (Auto) 7.6 TH/MM3 5.8 TH/MM3 Lymphocytes # (Auto) 0.7 TH/MM3 1.3 TH/MM3 Monocytes # (Auto) 0.6 TH/MM3 1.0 TH/MM3 Eosinophils # (Auto) 0.0 TH/MM3 0.1 TH/MM3 Basophils # (Auto) 0.0 TH/MM3 0.0 TH/MM3 CBC Comment DIFF FINAL DIFF FINAL Differential Comment Laboratory Tests Test 06/20/17 05:50 06/21/17 05:30 Blood Urea Nitrogen 57 MG/DL 81 MG/DL Creatinine 6.55 MG/DL 7.64 MG/DL Random Glucose 292 MG/DL 100 MG/DL Total Protein 8.5 GM/DL 8.3 GM/DL Albumin 3.1 GM/DL 3.1 GM/DL Calcium Level 9.2 MG/DL 9.5 MG/DL Alkaline Phosphatase 97 U/L 107 U/L Aspartate Amino Transf (AST/SGOT) 5 U/L 9 U/L Alanine Aminotransferase (ALT/SGPT) 10 U/L 12 U/L Total Bilirubin 0.3 MG/DL 0.4 MG/DL Sodium Level 129 MEQ/L 128 MEQ/L Potassium Level 4.9 MEQ/L 4.9 MEQ/L Chloride Level 88 MEQ/L 88 MEQ/L Carbon Dioxide Level 25.8 MEQ/L 20.3 MEQ/L Anion Gap 15 MEQ/L 20 MEQ/L Estimat Glomerular Filtration Rate 7 ML/MIN 6 ML/MIN Lipase 120 U/L Microbiology Date/Time Source Procedure Growth Status 06/20/17 11:04 Fluid Other Gram Stain - Final Resulted 06/20/17 11:04 Body Fluid Culture - Preliminary Gram Positive Rods Gram Negative Prateek Resulted 06/20/17 11:04 Abscess Abdomen Fungal Smear - Final NO FUNGAL ELEMENTS SEEN. Resulted 06/20/17 11:04 Abscess Abdomen Fungal Culture Pending Resulted Imaging RADIOLOGY STUDIES/FILMS REVIEWED Abscess Drainage CT 06/20/17 0000 Signed Impressions: Service Date/Time: June 10:20 - CONCLUSION: Uncomplicated CT guided drainage of the left upper quadrant perisplenic fluid collection. Samples were saved and sent to lab for Gram stain and cultures. Abhijit De Los Santos MD Chest X-Ray 06/18/17 0600 Signed Impressions: Service Date/Time: Sunday, June 18, 2017 08:33 - CONCLUSION: 1. Linear airspace disease in the right middle lobe and lingula consistent with atelectasis. Differential considerations include aspiration in the appropriate clinical setting. Capo Liu MD Abdomen/Pelvis CT 06/18/17 0000 Signed Impressions: Service Date/Time: Monday, June 19, 2017 08:14 - CONCLUSION: 1. Interval development of air-containing fluid collection in the spleen measuring up to 6.9 x 3.0 cm in maximal dimension with subcapsular fluid in region of prior splenic infarction. This finding is concerning for splenic abscess. 2. Mild bibasilar ground glass opacities and platelike air space consolidation in the left lower lobe, likely atelectasis. 3. No significant aortic or mesenteric stenosis as questioned. 4. End-stage appearing kidneys. 5. Trace place pelvic free fluid. Findings were personally discussed with Dr. Johnston. Capo Liu MD Abdomen X-Ray 06/18/17 0000 Signed Impressions: Service Date/Time: Sunday, June 18, 2017 13:38 - CONCLUSION: 1. No acute abdominal abnormality is identified. There are no findings to indicate obstruction. 2. Severe renal artery vascular calcification. Abhijit De Los Santos MD Lung Scan-V Nuclear Medicine 06/17/17 0000 Signed Impressions: Service Date/Time: Saturday, June 17, 2017 16:03 - CONCLUSION: 1. Central trapping on the ventilatory images. Nonspecific but can be seen in COPD. 2. Otherwise, low probability scan for pulmonary embolus. Dennis Trimble MD Physical Exam GENERAL: awake and alert, not in respiratory distress. SKIN: Warm and dry. Has superficial round ulcers on face, with some crusting and some in her UE HEAD: Atraumatic. Normocephalic. No temporal wasting, or tenderness. EYES: Lemmon conjunctiva. No petechia or hemorrhage. Pupils equal, round and reactive to light. Extraocular movements full and intact. No scleral icterus. No injection or drainage. EARS, NOSE AND THROAT: Nose without bleeding or purulent nasal discharge. No sinus tenderness. Mucous membranes pink and moist. No oral lesions noted. She is edentulous. NECK: Trachea midline. Supple and not tender, no meningeal signs CARDIOVASCULAR: Regular rate and rhythm. No murmurs, rubs or gallops heard RESPIRATORY: Clear to auscultation. Breath sounds equal bilaterally. No rales , wheezing or rhonchi ABDOMEN: Soft, nondistended, with diffuse abdominal tenderness, but no guarding or rebound. Bowel sounds present and normoactive. No organomegaly. EXTREMITIES: No clubbing, cyanosis, or edema. No joint effusion, has good ROM. No calf tenderness. Well perfused and warm. RUE AVF with no evidence of infection. S/P RBKA, well healed stump NEUROLOGICAL: Awake and alert. Cranial nerves grossly intact. Motor grossly within normal limits. PSYCHIATRIC: Normal affect, calm and cooperative. LINE: No evidence of infection Assessment & Plan Remarks IMPRESSION Enterococcal and Klebsiella bacteremia, on Rx for possible endocarditis, with splenic infarct - MARILU no vegetation done during last admission Splenic abscess, developed while on Rx for bacteremia ESRD, on HD MWF Hx IVDU, ?continued use of IVD Has skin lesions which according to patient is from calciphylaxis, ?popping or picking due to drugs RECOMMENDATION Continue IV Vancomycin - spoke with Floor RN to make sure she gets her IV Vanco today after her HD Continue IV Cefepime and Flagyl Also on Cipro Follow new C/S and adjust Abs Monitor progress D/W Carrie Johnson MD Jun 21, 2017 15:25
[2017-06-21] MEDS: CEFEPIME INJ 2,000 MG in SODIUM CHLORIDE 0.9% INJ 100 ML IV SCH (16:06)
[2017-06-21 18:51] LABS: BICARBONATE 28.9 MEQ/L (21.0-32.0)
[2017-06-21] MEDS: REMOVE OLD PATCH T-DERMAL SCH (21:00)
[2017-06-22] VITALS (9 sets, daily range): BP systolic 92–116; BP diastolic 46–53; PULSE 64–74; RESP 16–22; TEMP 97.8–98.9; O2SAT 91–95
[2017-06-22] MEDS: metroNIDAZOLE 500 MG TAB PO SCH (06:46)
[2017-06-22] MEDS: INSULIN ASPART SUPPLEMENTAL SCALE SQ SCH ×4 (08:00→22:16)
[2017-06-22] MEDS: SEVELAMER CARBONATE 800 MG TAB PO SCH ×3 (09:52→17:36)
[2017-06-22] MEDS: PANTOPRAZOLE SOD 40 MG DELAYED RELEASE TAB PO SCH (09:53)
[2017-06-22] MEDS: SERTRALINE HCL 100 MG TAB PO SCH (09:53)
[2017-06-22] MEDS: CARVEDILOL 12.5 MG TAB PO SCH ×2 (09:53→21:00)
[2017-06-22] MEDS: LISINOPRIL 20 MG TAB PO SCH ×2 (09:53→22:17)
[2017-06-22] MEDS: CHOLECALCIFEROL (VIT D3) 5000 UNIT CAP PO SCH (09:53)
[2017-06-22] MEDS: VITAMIN B CMPLX/VITC/FOLIC AC CAP PO SCH (09:54)
[2017-06-22] MEDS: DOCUSATE SODIUM 50 MG/SENNA 8.6 MG TAB PO SCH ×2 (09:55→22:15)
[2017-06-22] MEDS: SODIUM CHLORIDE 0.9% FLUSH 10 ML FLUSH IV FLUSH SCH ×2 (09:56→22:21)
[2017-06-22] MEDS: POLYETHYLENE GLYCOL 17 GM PKG PO SCH (09:56)
[2017-06-22] MEDS: NICOTINE 7 MG/24 HR PATCH T-DERMAL SCH (09:56)
[2017-06-22] MEDS: CIPROFLOXACIN 750 MG TAB PO SCH (09:57)
[2017-06-22] MEDS: INSULIN DETEMIR 100 UNITS/ML VIAL SQ SCH ×2 (09:59→22:16)
--- NOTE | 2017-06-22 12:03 | HHI.NPPN ---
Subjective History of Present Illness Patient is a 47-year-old the female with history of end-stage renal disease, diabetes, blindness, peripheral vascular disease, calciphylaxis, ischemic left foot, previous right BKA who has certainly admitted with the chest pain she's described the pain in the left side radiating to his left shoulder, patient has similar complaints a few weeks ago, and was discharged after workup She goes to dialysis on Saturday, Saturday and Saturday Additional Remarks confused Review of Systems Gastrointestinal Gastrointestinal: Abdominal Pain Objective Data Data Vital Signs Date Time Temp Pulse Resp B/P (MAP) Pulse Ox O2 Delivery O2 Flow Rate FiO2 06/22/17 08:23 98.2 74 18 108/53 (71) 93 06/22/17 04:00 Room Air 21 06/22/17 04:00 98.1 74 20 116/53 (74) 93 06/22/17 00:04 98.0 71 16 112/51 (71) 95 06/22/17 00:00 Nasal Cannula 2.00 06/21/17 20:00 98.4 74 16 135/54 (81) 92 06/21/17 19:30 76 06/21/17 19:30 Nasal Cannula 2.00 21 06/21/17 16:00 98.2 82 18 135/56 (82) 99 06/21/17 13:00 98.5 77 18 133/63 (86) 91 -: 06/21/17 0530 06/21/17 1800 Microbiology 06/21/17 Aerobic Blood Culture - Preliminary, Resulted NO GROWTH IN 1 DAY 06/21/17 Anaerobic Blood Culture - Preliminary, Resulted NO GROWTH IN 1 DAY 06/21/17 Aerobic Blood Culture - Preliminary, Resulted NO GROWTH IN 1 DAY 06/21/17 Anaerobic Blood Culture - Preliminary, Resulted NO GROWTH IN 1 DAY Physical Exam General Appearance: Well Developed, Well Nourished Neck Neck Exam: Neck Supple Pulmonary Resp Exam: Clear Bilaterally, Breath Sounds Equal Cardiology CV Exam: Regular Gastrointestinal/Abdomen GI Exam: Soft, Non-Tender, Bowel Sounds Present Extremeties Extremities Exam: Trace Edema Extremeties Remarks ischemic l foot Assessment/Plan Problem List: (1) ESRD (end stage renal disease) on dialysis ICD Codes: N18.6 - End stage renal disease; Z99.2 - Dependence on renal dialysis Status: Chronic Plan: HD MWF now confused getting EEG ? Metabolic did tell me that she in hospital and had abdominal pain, but not her age Hemodialysis yesterday UF 1.5 L drops BP frequently on pain medications, very sleepy She has calciphylaxis and received sodium thiosulfate splenic fluid collection c/s Enterobacter Cipro/Cefepime d/w Dr. Davis (2) Hyperkalemia ICD Codes: E87.5 - Hyperkalemia Status: Resolved Plan: Hemodialysis planned (3) Calciphylaxis ICD Codes: E83.59 - Other disorders of calcium metabolism Status: Acute Plan: Continue with sodium thiosulfate (4) Peripheral vascular disease ICD Codes: I73.9 - Peripheral vascular disease, unspecified Status: Acute Plan: Had previous procedures done (5) Diabetes ICD Codes: E11.9 - Type 2 diabetes mellitus without complications Status: Chronic Plan: Monitor blood glucose (6) Hypertension ICD Codes: I10 - Essential (primary) hypertension Status: Acute Plan: Continue to monitor blood pressure (7) Chest pain ICD Codes: R07.9 - Chest pain, unspecified Status: Acute Plan: as above follow VQ scan Problem Qualifiers (1) Diabetes: (2) Hypertension: Qualified Codes: I10 - Essential (primary) hypertension (3) Chest pain: Qualified Codes: R07.9 - Chest pain, unspecified Gerri Gilbert MD Jun 22, 2017 12:03
[2017-06-22] MEDS ORDERED: Custom Consult Pharmacy 1 EA OTHER SCH (13:00)
[2017-06-22 13:02] LABS: ALKALINE PHOSPHATASE 78 U/L (45-117); ALT (GPT) 10 U/L (10-53); ANION GAP 15 MEQ/L (5-15); AST (GOT) 18 U/L (15-37); BICARBONATE 24.7 MEQ/L (21.0-32.0); BLOOD UREA NITROGEN 55 MG/DL (7-18); CHLORIDE 93 MEQ/L (98-107); GLOMERULAR FILTRATION RATE 7 ML/MIN (>89); POTASSIUM 4.9 MEQ/L (3.5-5.1); SODIUM (NA) 133 MEQ/L (136-145); TOTAL BILIRUBIN ADULT 0.4 MG/DL (0.2-1.0)
[2017-06-22 13:33] LABS: AUTOMATED NEUTROPHIL # 7.6 TH/MM3 (1.8-7.7); BASOPHIL % 0.4 % (0.0-2.0); EOSINOPHIL # 0.1 TH/MM3 (0-0.4); EOSINOPHIL % 0.8 % (0.0-4.0); HEMATOCRIT 29.8 % (35.0-46.0); HEMO FLAGS DIFF FINAL; LYMPH % 7.9 % (9.0-44.0); LYMPHOCYTE # 0.7 TH/MM3 (1.0-4.8); MEAN CORPUSCULAR HEMOGLOBIN 30.2 PG (27.0-34.0); MEAN CORPUSCULAR HGB CONC 32.1 % (32.0-36.0); MONO % 10.6 % (0.0-8.0); NEUT % 80.3 % (16.0-70.0); PLATELET COUNT 308 TH/MM3 (150-450); RED BLOOD COUNT 3.17 MIL/MM3 (4.00-5.30); RED CELL DISTRIBUTION WIDTH 17.2 % (11.6-17.2); WHITE BLOOD COUNT 9.4 TH/MM3 (4.0-11.0)
[2017-06-22] MEDS ORDERED: levETIRAcetam INJ 500 MG in SODIUM CHLORIDE 0.9% INJ 100 ML IV ONE (15:00)
--- NOTE | 2017-06-22 15:23 | RADRPT ---
EXAM DATE/TIME: 06/22/2017 14:51 [place] COMPARISON: No previous studies available for comparison. INDICATIONS : Altered mental status. MEDICAL HISTORY : Renal failure, chronic. SURGICAL HISTORY : Cholecystectomy. Right BKA, AV fistula, nephrostomy. ENCOUNTER: Subsequent ACUITY: 1 month PAIN SCORE: 0/10 LOCATION: cranial TECHNIQUE: Multiplanar, multisequence MRI of the brain was performed without contrast. FINDINGS: CEREBRUM: The ventricles are normal for age. No evidence of midline shift, mass lesion, hemorrhage or acute in farction. No extraaxial fluid collections are seen. The pituitary gland and suprasellar cistern are normal in configuration. WHITE MATTER: No significant signal abnormalities are seen in the white matter. POSTERIOR FOSSA: The cerebellum and brainstem are intact. The 4th ventricle is midline. The cerebellopontine angle is unremarkable. The cerebellar tonsils are normal in position. DIFFUSION IMAGING: No focal areas of restricted diffusion are seen. No evidence of acute infarction. EXTRACRANIAL: The visualized portions of the orbits and paranasal sinuses are unremarkable. CONCLUSION: Negative exam. Dennis Trimble MD on June 22, 2017 at 15:21 Board Certified Radiologist. This report was verified electronically.
--- NOTE | 2017-06-22 16:20 | HHI.FPPN ---
Subjective Remarks Visited patient this morning, she is giving slow responses to questions. She was confused about who she was or where she was. She follows commands if you ask her repeatedly. Her neurological exam, besides orientation and mental status , was otherwise benign. We ordered a stat EEG and laboratory studies. EEG is showing triphasic spikes. We discussed the case with Dr. Collins on the phone as well as with Dr. Gilbert in person. Dr. Collins suggested starting Keppra, which she did. We also ordered an MRI of the brain. The MRI of the brain is normal. Troponin is normal. Ammonia is normal. Troponin is normal. TSH is normal. BMP is showing mild hyponatremia, renal function at baseline. When asked if she is in pain, she says she does not know. (Benedict Torres MD R3) Objective Vitals Vital Signs Date Time Temp Pulse Resp B/P (MAP) Pulse Ox O2 Delivery O2 Flow Rate FiO2 06/22/17 13:36 94 21 06/22/17 12:10 97.8 65 18 94/46 (62) 94 06/22/17 10:52 18 06/22/17 08:23 98.2 74 18 108/53 (71) 93 06/22/17 08:00 Room Air 06/22/17 08:00 71 06/22/17 04:00 Room Air 21 06/22/17 04:00 98.1 74 20 116/53 (74) 93 06/22/17 00:04 98.0 71 16 112/51 (71) 95 06/22/17 00:00 Nasal Cannula 2.00 06/21/17 20:00 98.4 74 16 135/54 (81) 92 06/21/17 19:30 76 06/21/17 19:30 Nasal Cannula 2.00 21 I/O 06/21/17 06/21/17 06/21/17 06/22/17 06/22/17 06/22/17 07:00 15:00 23:00 07:00 15:00 23:00 Intake Total 620 ml 120 ml 480 ml Output Total 15 ml 1500 ml 15 ml 40 ml Balance 605 ml -1500 ml 105 ml 440 ml Intake Oral 620 ml 120 ml 480 ml Output Urine Total 0 ml Gastric Drainage Total 15 ml Drainage Total 15 ml 40 ml Hemodialysis 1500 ml # Voids 0 # Bowel Movements 1 0 0 (Benedict Torres MD R3) Result Diagram: 06/22/17 1310 06/22/17 1145 Objective Remarks General: Sitting on side of bed, in no distress, appears confused Skin: Has multiple lesions on face and body, 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 Lungs: CTAB, poor effort, no wheezing, rales, or rhonchi. Abdomen: Soft, nontender, no guarding or rebound tenderness. Neuro: Alert but not oriented, EOMI, PERRLA, CN intact, following simple commands, upper and lower extremity strength intact Procedures splenic abscess drainage by IR 06/20/17 (Benedict Torres MD R3) A/P Assessment and Plan 47-year-old female with a past medical history of end-stage renal disease, diabetes, hypertension, PAD, recently discharged from the hospital on 03 June where she was found to have an acute splenic infarction, presented with a one-day history of chest pain and left shoulder pain as well as elevated potassium and creatinine. She was admitted to the hospital for dialysis and ACS rule out and was found to have a splenic abscess identified on CTA performed on 06/19/17. Splenic abscess drained placed by IR on 06/21. General surgery has been consulted in case there is a need for surgical management. ID is assisting with antibiotic management. Discharge Planning Pending management of splenic abscess, resolution of altered mental status, normal white count, afebrile, stable vital signs, safe discharge. (Benedict Torres MD R3) Attending Attestation Patient seen and examined. Case reviewed and discussed Agree with plan of care as discussed with me and documented in the resident note. (Irene Davis MD) Problem List: (1) Altered mental status ICD Codes: R41.82 - Altered mental status, unspecified Status: Resolved Plan: Acute altered mental status today, essentially benign neuro exam otherwise. Stat EEG showing triphasic waves, possibly metabolic encephalopathy. - Stat consult to neurology, spoke with Dr. Collins by phone, started Keppra 500 mg qday with consult to pharmacy to assist with dosing due to ESRD. - Troponin negative, metabolic profile stable, renal function stable, ammonia level normal, TSH normal - MRI of brain negative for any acute process. - Follow up prolactin level - Seizure and fall precautions - Delirium precautions (2) Splenic abscess ICD Codes: D73.3 - Abscess of spleen Status: Acute Plan: CTA performed on 06/19 shows interval development of air-containing fluid collection in the spleen measuring up to 6.9 x 3.0 cm in maximal dimension with subcapsular fluid in region of prior splenic infarction, concerning for splenic abscess. No significant aortic or mesenteric stenoses identified. Interventional radiology drained abscess 06/20/17--serosanguinous drainage noted this morning. Cultures of drained abscess fluid growing propionibacterium and enterobacter cloacae, collins-sensitive. -Gen. surgery consulted and on board in case more definitive management is required. -ID consulted - continue vancomycin for previously diagnosed bacteremia. -Continue IV cefepime 2 g every 24 hours and Flagyl IV 500 mg by mouth every 8 hours -Follow blood cultures, no growth in 1 day. (3) ESRD (end stage renal disease) on dialysis ICD Codes: N18.6 - End stage renal disease; Z99.2 - Dependence on renal dialysis Status: Chronic Plan: -Hemodialysis MWF per nephrology recommendations, Dr. Gilbert on board -Avoid nephrotoxic agents (4) Hyperkalemia ICD Codes: E87.5 - Hyperkalemia Status: Acute Plan: -Fluctuating levels of potassium, 4.9 today -Dialysis as above (5) History of bacteremia ICD Codes: Z87.898 - Personal history of other specified conditions Status: Acute Plan: History of bacteremia with recurrent fever secondary to Enterococcus and Klebsiella on last admission. Patient was previously being treated for enterococcus bacteremia with vancomycin 1 g 3 times a week (MWF) after hemodialysis and Ciprofloxacin PO. -Discussed with nephrology to arrange for IV vanco with HD, patient completes 28 days -Continue Cipro 750mg PO daily to complete 28 days Antibiotic history -Vancomycin 1 g IV, MWF after dialysis - started on 05/29 -Ciprofloxacin 750 mg by mouth daily - started on 06/03 (6) Hypertension ICD Codes: I10 - Essential (primary) hypertension Status: Chronic Plan: -Continue home medications: Amlodipine and Coreg, resume lisinopril (7) Diabetes ICD Codes: E11.9 - Type 2 diabetes mellitus without complications Status: Chronic Plan: -Takes insulin glargine 25 units subcutaneous twice a day at home -Continue glucose monitoring with sliding scale insulin -Continue SSI (Low) (8) Peripheral vascular disease ICD Codes: I73.9 - Peripheral vascular disease, unspecified Status: Acute Plan: - Resume clopidogrel post-splenic abscess drain placement (9) Calciphylaxis ICD Codes: E83.59 - Other disorders of calcium metabolism Status: Acute Plan: -Continue thiosulfate per nephrology (10) Tobacco abuse ICD Codes: Z72.0 - Tobacco use Status: Chronic Plan: -Nicotine patch 7 mg (11) Physical deconditioning ICD Codes: R53.81 - Other malaise Status: Chronic Plan: -PT consulted to assist with ambulation and exercises (12) Chronic Medical Problems Status: Chronic Plan: Diabetic neuropathy: Holding gabapentin 400 mg by mouth 3 times a day Hyperlipidemia: Continue Atorvastin, Pravastatin Anxiety/Depression: Continue sertraline 100 mg by mouth daily, continue trazodone 50 mg by mouth at bedtime (13) Hyperphosphatemia ICD Codes: E83.39 - Other disorders of phosphorus metabolism Status: Resolved Plan: -Restarted Renvela 3200mg TID on 06/20 -Follow Phos (14) FEN/DVT PPX/GI PPX/Nursing Orders Plan: Fluids: Oral fluids only, on hemodialysis Electrolytes: Will monitor and replace as needed Nutrition: Renal diet DVT Prophylaxis: Unilateral SCDs, resume Eliquis 2.5 mg by mouth twice a day PRN Medications Tylenol 650 mg by mouth every 4 hours when necessary pain 1-10 or temperature greater than 100.4F Zofran 4 mg IV push every 6 hours when necessary nausea vomiting Percocet 325-5 mg 1 tab by mouth every 6 hours when necessary pain 1-5 Percocet 325-10 mg 1 tab by mouth every 6 hours when necessary pain 6-10 Morphine 4 mg IV every 3 hours when necessary breakthrough pain -Vitals Q4h -Monitor I's and O's -Fall precautions -Neurochecks -Seizure precautions/fall precautions -grinder brake lining with telemetry with continuous vital signs -Activity OOB with assistance -PT to assist with ambulation -Case management consult to assist with discharge disposition (Benedict Torres MD R3) Problem Qualifiers (1) Hypertension: Qualified Codes: I10 - Essential (primary) hypertension (2) Diabetes: Benedict Torres MD R3 Jun 22, 2017 16:20 Irene Davis MD Jul 01, 2017 16:39
[2017-06-22] MEDS: CEFEPIME INJ 2,000 MG in SODIUM CHLORIDE 0.9% INJ 100 ML IV SCH (17:34)
[2017-06-22] MEDS: REMOVE OLD PATCH T-DERMAL SCH (21:00)
--- NOTE | 2017-06-22 21:24 | MG ---
cc: YOHANA JACK M.D. Lab No: [id number] Date: 06/22/2017 Age: Sex: F Race: TECHNIQUE: This is a 17 channel EEG. DESCRIPTION: The background rhythm reveals generalized slowing in the delta frequency at roughly 4-5 Hz. Amplitude is about 30-50 microvolts. There are prominent triphasic waves present bilaterally, more prominent over the left frontal area; however, there is some muscle artifact present. I do not see any epileptiform discharges. There are no lateralizing features. Hyperventilation was not done. Photic results in a poor driving response. INTERPRETATION: Abnormal study with severe slowing as well as triphasic waves which are consistent with a metabolic encephalopathy. No ictal or epileptiform discharges are present. MD AQUILES Casillas/OLGA /9:20 PM /9:26 PM
--- NOTE | 2017-06-22 21:40 | MB ---
cc: YOHANA JACK DATE OF CONSULTATION 06/22/17 REASON FOR CONSULTATION Mental status change. HISTORY OF PRESENT ILLNESS This is a 47-year-old female with end-stage renal disease as well as splenic abscess status post drainage. The patient has had mental status changes where she has been intermittently confused and disoriented, at other times she is more responsive. She also has sepsis, being treated for possible endocarditis. MEDICATIONS Current medications are: 1. Ciprofloxacin. 2. Keppra 500 milligrams IV daily. 3. Plavix 75 milligrams daily. 4. Eliquis 2.5 milligrams b.i.d. 5. Vancomycin. 6. Insulin. 7. Renvela. 8. MiraLax. 9. Cefepime. 10. Sertraline. 11. Norvasc. 12. Previously was on Morphine and Oxycodone which have been on hold. NEUROLOGIC EXAMINATION VITAL SIGNS: Blood pressure is 97/46, pulse 65, respiratory rate is 18, temperature is 98 degrees. NEURO: Higher cortical function, the patient is lethargic but easy to arouse. She does not follow commands. She does not answer questions appropriately, appears to be disoriented to date and place. Cranial nerves: She is unable to count fingers in any visual field. Pupils are equal, reactive. There is no facial asymmetry. On motor exam she has no gross focal deficits. She had difficulty cooperating fully with the examination but I do not find any gross focal deficits. IMAGING STUDIES EEG is reviewed, there is diffuse slowing with triphasic waves. I do not see any epileptiform discharges. MRI brain is normal. LABORATORY DATA White count 9,400, hemoglobin 9.6, hematocrit 29.8%, platelet count 308,000. PT 12.8, INR 1.2, APTT 26.8. Sodium is 133, potassium 4.9, chloride 93, CO2 25, BUN is 55, creatinine 6.19, AST 18, ALT is 10. IMPRESSION Probable metabolic encephalopathy. The EEG does not reveal any epileptiform discharges. RECOMMENDATIONS I agree with Keppra for now in the event that she might have had some seizure activity, although, this is not present on the EEG but this does not exclude seizure. Would recommend continuing Keppra for the next several days to see if there is improvement in her mental status. If she does not show improvement could consider stopping the Keppra at that time. Thank you for asking me to see this patient. MD AQUILES Casillas/HARVEY /9:30 PM /9:37 PM
[2017-06-22] MEDS: APIXABAN 2.5 MG TABLET PO SCH (22:15)
[2017-06-23] VITALS (7 sets, daily range): BP systolic 105–158; BP diastolic 49–60; PULSE 65–70; RESP 18–19; TEMP 97.4–98.3; O2SAT 91–94
[2017-06-23] MEDS: INSULIN ASPART SUPPLEMENTAL SCALE SQ SCH ×4 (08:00→20:55)
[2017-06-23] MEDS: CHOLECALCIFEROL (VIT D3) 5000 UNIT CAP PO SCH (08:32)
[2017-06-23] MEDS: CARVEDILOL 12.5 MG TAB PO SCH ×2 (08:32→20:54)
[2017-06-23] MEDS: VITAMIN B CMPLX/VITC/FOLIC AC CAP PO SCH (08:32)
[2017-06-23] MEDS: DOCUSATE SODIUM 50 MG/SENNA 8.6 MG TAB PO SCH ×2 (08:33→20:54)
[2017-06-23] MEDS: CLOPIDOGREL 75 MG TAB PO SCH (08:33)
[2017-06-23] MEDS: SERTRALINE HCL 100 MG TAB PO SCH (08:33)
[2017-06-23] MEDS: APIXABAN 2.5 MG TABLET PO SCH ×2 (08:33→20:54)
[2017-06-23] MEDS: CIPROFLOXACIN 500 MG TAB PO SCH (08:33)
[2017-06-23] MEDS: LISINOPRIL 20 MG TAB PO SCH ×2 (08:34→20:55)
[2017-06-23] MEDS: PANTOPRAZOLE SOD 40 MG DELAYED RELEASE TAB PO SCH (08:34)
[2017-06-23] MEDS: SEVELAMER CARBONATE 800 MG TAB PO SCH ×3 (08:34→18:05)
[2017-06-23] MEDS: POLYETHYLENE GLYCOL 17 GM PKG PO SCH (08:34)
[2017-06-23] MEDS: NICOTINE 7 MG/24 HR PATCH T-DERMAL SCH (08:35)
[2017-06-23] MEDS: INSULIN DETEMIR 100 UNITS/ML VIAL SQ SCH ×2 (08:35→20:55)
[2017-06-23] MEDS: SODIUM CHLORIDE 0.9% FLUSH 10 ML FLUSH IV FLUSH SCH ×2 (08:43→21:01)
[2017-06-23] MEDS: levETIRAcetam INJ 500 MG in SODIUM CHLORIDE 0.9% INJ 100 ML IV SCH (08:43)
--- NOTE | 2017-06-23 09:24 | HHI.FPPN ---
Subjective Remarks Ms. Laguerre was sitting up in bed this morning. She states that she did not know how she felt, where she was, where she lived, or if she had any family members. She had no idea if she was in pain but stated "it hurts" when her drain sites was palpated. Nurse at bedside states that she seemed much more awake and alert for her and was able to tell her name and where she was. The patient's conversation with the nurse occurred not too long before my exam. (Leena Johnston MD R2) Objective Vitals Vital Signs Date Time Temp Pulse Resp B/P (MAP) Pulse Ox O2 Delivery O2 Flow Rate FiO2 06/23/17 08:05 97.6 70 18 111/49 (69) 92 06/23/17 04:00 97.7 65 18 105/55 (72) 94 06/23/17 04:00 Room Air 06/23/17 00:00 Room Air 06/23/17 00:00 97.4 65 19 109/57 (74) 93 06/22/17 22:15 Nasal Cannula 2.00 06/22/17 20:17 64 06/22/17 20:00 98.9 65 22 92/46 (61) 95 06/22/17 16:18 98.7 65 18 97/46 (63) 91 06/22/17 13:36 94 21 06/22/17 12:10 97.8 65 18 94/46 (62) 94 06/22/17 10:52 18 I/O 06/22/17 06/22/17 06/22/17 06/23/17 06/23/17 06/23/17 07:00 15:00 23:00 07:00 15:00 23:00 Intake Total 480 ml 100 ml 220 ml 0 ml Output Total 40 ml 30 ml Balance 440 ml 100 ml 220 ml -30 ml Intake Oral 480 ml 120 ml 0 ml IV Total 100 ml 100 ml Output Urine Total 0 ml Drainage Total 40 ml 30 ml # Voids 0 1 # Bowel Movements 0 1 (Leena Johnston MD R2) Result Diagram: 06/22/17 1310 06/22/17 1145 Objective Remarks General: Sitting up in bed, in no distress, appears confused, intermittently crying during exam Skin: Has multiple lesions on face and body from calciphylaxis HEENT: Normocephalic, poor dentition Neck: Supple, no lymphadenopathy, no thyromegaly CV: RRR, no murmurs, rubs, or gallops, no edema. Lungs: CTAB, poor effort, no wheezing, rales, or rhonchi. Abdomen: Soft, tender to palpation diffusely and at drainage site, no guarding or rebound tenderness. BACK: Spleen abscess drain in place with no redness at the insertion site Neuro: Alert but not oriented, EOMI, PERRLA, CN intact, following simple commands, upper and lower extremity strength intact Procedures splenic abscess drainage by IR 06/20/17 (Leena Johnston MD R2) A/P Assessment and Plan 47-year-old female with a past medical history of end-stage renal disease, diabetes, hypertension, PAD, recently discharged from the hospital on 03 June where she was found to have an acute splenic infarction, presented with a one-day history of chest pain and left shoulder pain as well as elevated potassium and creatinine. She was admitted to the hospital for dialysis and ACS rule out and was found to have a splenic abscess identified on CTA performed on 06/19/17. Splenic abscess drained placed by IR on 06/21. ID is assisting with antibiotic management. Discussed with Dr. Davis Discharge Planning Pending management of splenic abscess, resolution of altered mental status, normal white count, afebrile, stable vital signs, safe discharge. (Leena Johnston MD R2) Attending Attestation Patient seen and examined. Case reviewed and discussed Agree with plan of care as discussed with me and documented in the resident note. (Irene Davis MD) Problem List: (1) Altered mental status ICD Codes: R41.82 - Altered mental status, unspecified Status: Resolved Plan: Acute altered mental status on 06/22/17, essentially benign neuro exam otherwise. Stat EEG showing triphasic waves, possibly metabolic encephalopathy. - Stat consult to neurology, spoke with Dr. Collins by phone, started Keppra 500 mg qday with consult to pharmacy to assist with dosing due to ESRD - Troponin negative, metabolic profile stable, renal function stable, ammonia level normal, TSH normal - MRI of brain negative for any acute process - Follow up prolactin level, currently pending - Seizure and fall precautions - Delirium precautions (2) Splenic abscess ICD Codes: D73.3 - Abscess of spleen Status: Acute Plan: CTA performed on 06/19 shows interval development of air-containing fluid collection in the spleen measuring up to 6.9 x 3.0 cm in maximal dimension with subcapsular fluid in region of prior splenic infarction, concerning for splenic abscess. No significant aortic or mesenteric stenoses identified. Interventional radiology drained abscess 06/20/17--serosanguinous drainage noted this morning. Cultures of drained abscess fluid growing propionibacterium and collins-sensitive Enterobacter cloacae. Propionibacterium is known to be sensitive to penicillin so should be covered by Cefepime. -ID consulted - continue vancomycin for previously diagnosed bacteremia. -Continue IV cefepime 2 g every 24 hours. Hold Flagyl IV 500 mg by mouth every 8 hours due to risk of seizures -Follow blood cultures, no growth in 2 days -Tylenol 1000mg by mouth every 6 hours scheduled for pain -Expect IR to possibly remove drain in 1-2 days. 30 ml drainage noted in the last 24 hours (3) ESRD (end stage renal disease) on dialysis ICD Codes: N18.6 - End stage renal disease; Z99.2 - Dependence on renal dialysis Status: Chronic Plan: -Hemodialysis MWF per nephrology recommendations, Dr. Gilbert on board -Avoid nephrotoxic agents (4) Hyperkalemia ICD Codes: E87.5 - Hyperkalemia Status: Acute Plan: -Fluctuating levels of potassium, 4.7 today -Dialysis as above (5) History of bacteremia ICD Codes: Z87.898 - Personal history of other specified conditions Status: Acute Plan: History of bacteremia with recurrent fever secondary to Enterococcus and Klebsiella on last admission. Patient was previously being treated for enterococcus bacteremia with vancomycin 1 g 3 times a week (MWF) after hemodialysis and Ciprofloxacin PO. -Discussed with nephrology to arrange for IV vanco with HD, patient to complete 28 days -Continue Cipro 750mg PO daily to complete 28 days Antibiotic history -Vancomycin 1 g IV, MWF after dialysis - started on 05/29 -Ciprofloxacin 750 mg by mouth daily - started on 06/03 (6) Hypertension ICD Codes: I10 - Essential (primary) hypertension Status: Chronic Plan: -Continue home medications: Amlodipine and Coreg, resume lisinopril (7) Diabetes ICD Codes: E11.9 - Type 2 diabetes mellitus without complications Status: Chronic Plan: -Takes insulin glargine 25 units subcutaneous twice a day at home -Continue glucose monitoring with sliding scale insulin -Continue SSI (Low) (8) Peripheral vascular disease ICD Codes: I73.9 - Peripheral vascular disease, unspecified Status: Acute Plan: - Resume clopidogrel post-splenic abscess drain placement (9) Calciphylaxis ICD Codes: E83.59 - Other disorders of calcium metabolism Status: Acute Plan: -Continue thiosulfate per nephrology (10) Tobacco abuse ICD Codes: Z72.0 - Tobacco use Status: Chronic Plan: -Nicotine patch 7 mg (11) Physical deconditioning ICD Codes: R53.81 - Other malaise Status: Chronic Plan: -PT consulted to assist with ambulation and exercises (12) Chronic Medical Problems Status: Chronic Plan: Diabetic neuropathy: Holding gabapentin 400 mg by mouth 3 times a day Hyperlipidemia: Continue Atorvastin, Pravastatin Anxiety/Depression: Continue sertraline 100 mg by mouth daily, holding trazodone 50 mg by mouth at bedtime due to altered mental status (13) Hyperphosphatemia ICD Codes: E83.39 - Other disorders of phosphorus metabolism Status: Resolved Plan: -Restarted Renvela 3200mg TID on 06/20 -Follow Phos (14) FEN/DVT PPX/GI PPX/Nursing Orders Plan: Fluids: Oral fluids only, on hemodialysis Electrolytes: Will monitor and replace as needed Nutrition: Renal diet DVT Prophylaxis: Unilateral SCDs, Eliquis 2.5 mg by mouth twice a day PRN Medications Zofran 4 mg IV push every 6 hours when necessary nausea vomiting Holding Percocet 325-5 mg 1 tab by mouth every 6 hours when necessary pain 1-5 Holding Percocet 325-10 mg 1 tab by mouth every 6 hours when necessary pain 6-10 Holding Morphine 4 mg IV every 3 hours when necessary breakthrough pain -Vitals Q4h -Monitor I's and O's -Fall precautions -Neurochecks -Seizure precautions/fall precautions -school lunch monitor with telemetry with continuous vital signs -Activity OOB with assistance -PT to assist with ambulation -Case management consult to assist with discharge disposition (Leena Johnston MD R2) Problem Qualifiers (1) Hypertension: Qualified Codes: I10 - Essential (primary) hypertension (2) Diabetes: Leena Johnston MD R2 Jun 23, 2017 09:24 Irene Davis MD Jul 01, 2017 16:39
--- NOTE | 2017-06-23 11:58 | HHI.NPPN ---
Subjective History of Present Illness Patient is a 47-year-old the female with history of end-stage renal disease, diabetes, blindness, peripheral vascular disease, calciphylaxis, ischemic left foot, previous right BKA who has certainly admitted with the chest pain she's described the pain in the left side radiating to his left shoulder, patient has similar complaints a few weeks ago, and was discharged after workup She goes to dialysis on Saturday, Saturday and Saturday Additional Remarks confused Review of Systems Gastrointestinal Gastrointestinal: Abdominal Pain Objective Data Data Vital Signs Date Time Temp Pulse Resp B/P (MAP) Pulse Ox O2 Delivery O2 Flow Rate FiO2 06/23/17 08:05 97.6 70 18 111/49 (69) 92 06/23/17 04:00 97.7 65 18 105/55 (72) 94 06/23/17 04:00 Room Air 06/23/17 00:00 Room Air 06/23/17 00:00 97.4 65 19 109/57 (74) 93 06/22/17 22:15 Nasal Cannula 2.00 06/22/17 20:17 64 06/22/17 20:00 98.9 65 22 92/46 (61) 95 06/22/17 16:18 98.7 65 18 97/46 (63) 91 06/22/17 13:36 94 21 06/22/17 12:10 97.8 65 18 94/46 (62) 94 -: 06/22/17 1310 06/22/17 1145 Physical Exam General Appearance: Well Developed, Well Nourished Neck Neck Exam: Neck Supple Pulmonary Resp Exam: Clear Bilaterally, Breath Sounds Equal Cardiology CV Exam: Regular Gastrointestinal/Abdomen GI Exam: Soft, Non-Tender, Bowel Sounds Present Extremeties Extremities Exam: Trace Edema Extremeties Remarks ischemic l foot Assessment/Plan Problem List: (1) ESRD (end stage renal disease) on dialysis ICD Codes: N18.6 - End stage renal disease; Z99.2 - Dependence on renal dialysis Status: Chronic Plan: HD MWF now confused EEG Metabolic encephlopathy Neuro following Hemodialysis Saturday UF 1.5 L drops BP She has calciphylaxis and received sodium thiosulfate splenic fluid collection c/s Enterobacter Cipro/Cefepime (2) Hyperkalemia ICD Codes: E87.5 - Hyperkalemia Status: Acute Plan: Hemodialysis planned (3) Calciphylaxis ICD Codes: E83.59 - Other disorders of calcium metabolism Status: Acute Plan: Continue with sodium thiosulfate (4) Peripheral vascular disease ICD Codes: I73.9 - Peripheral vascular disease, unspecified Status: Acute Plan: Had previous procedures done (5) Diabetes ICD Codes: E11.9 - Type 2 diabetes mellitus without complications Status: Chronic Plan: Monitor blood glucose (6) Hypertension ICD Codes: I10 - Essential (primary) hypertension Status: Chronic Plan: Continue to monitor blood pressure (7) Chest pain ICD Codes: R07.9 - Chest pain, unspecified Status: Acute Plan: as above follow VQ scan Problem Qualifiers (1) Diabetes: (2) Hypertension: Qualified Codes: I10 - Essential (primary) hypertension (3) Chest pain: Qualified Codes: R07.9 - Chest pain, unspecified Gerri Gilbert MD Jun 23, 2017 11:58
[2017-06-23 12:12] LABS: MEAN CELL VOLUME 94.6 FL (80.0-100.0); MEAN CORPUSCULAR HEMOGLOBIN 30.8 PG (27.0-34.0); MEAN CORPUSCULAR HGB CONC 32.5 % (32.0-36.0); PLATELET COUNT 337 TH/MM3 (150-450); RED BLOOD COUNT 3.49 MIL/MM3 (4.00-5.30); RED CELL DISTRIBUTION WIDTH 17.3 % (11.6-17.2); REVIEW FLAG FINAL; WHITE BLOOD COUNT 10.2 TH/MM3 (4.0-11.0)
[2017-06-23 12:26] LABS: BICARBONATE 24.6 MEQ/L (21.0-32.0); POTASSIUM 4.7 MEQ/L (3.5-5.1)
[2017-06-23] MEDS: ACETAMINOPHEN 1000 MG/100 ML 100 ML IV SCH ×3 (13:22→23:45)
--- NOTE | 2017-06-23 14:31 | RADRPT ---
EXAM DATE/TIME: 06/23/2017 13:55 [facility] COMPARISON: CHEST SINGLE AP, June 17, 2017, 10:25. INDICATIONS : Chest pain MEDICAL HISTORY : Renal failure, chronic. SURGICAL HISTORY : Cholecystectomy. Right BKA, AV fistula, nephrostomy ENCOUNTER: Subsequent ACUITY: 4 - 6 days PAIN SCORE: Non-responsive. LOCATION: Bilateral chest FINDINGS: A single view of the chest demonstrates hypoinflation with persistent predominantly bibasilar airspac e disease which may be slightly worse when compared to the prior. Possible associated small effusions . Heart size is prominent. Osseous structures are intact. Extensive stenting of what appears to be th e right cephalic vein. CONCLUSION: 1. Hypoinflation with worsening bibasilar airspace disease. Possible associated effusions. 2. Cardiomegaly. Dennis Trimble MD on June 23, 2017 at 14:28 Board Certified Radiologist. This report was verified electronically.
[2017-06-23] MEDS: CEFEPIME INJ 2,000 MG in SODIUM CHLORIDE 0.9% INJ 100 ML IV SCH (17:58)
[2017-06-23] MEDS: REMOVE OLD PATCH T-DERMAL SCH (21:00)
[2017-06-24] VITALS: BP 109/51; PULSE 62; RESP 19; TEMP 97.9; O2SAT 93
[2017-06-24 04:00] VITALS: BP 94/43; PULSE 63; RESP 18; TEMP 97.8; O2SAT 96
[2017-06-24] MEDS: ACETAMINOPHEN 1000 MG/100 ML 100 ML IV SCH ×4 (05:56→18:22)
[2017-06-24 06:43] LABS: BICARBONATE 22.1 MEQ/L (21.0-32.0); POTASSIUM 5.5 MEQ/L (3.5-5.1)
[2017-06-24 07:33] LABS: HEMATOCRIT 29.4 % (35.0-46.0); MEAN CELL VOLUME 95.5 FL (80.0-100.0); MEAN CORPUSCULAR HEMOGLOBIN 31.9 PG (27.0-34.0); MEAN CORPUSCULAR HGB CONC 33.3 % (32.0-36.0); PLATELET COUNT 321 TH/MM3 (150-450); RED BLOOD COUNT 3.07 MIL/MM3 (4.00-5.30); RED CELL DISTRIBUTION WIDTH 17.6 % (11.6-17.2); REVIEW FLAG FINAL; WHITE BLOOD COUNT 10.6 TH/MM3 (4.0-11.0)
--- NOTE | 2017-06-24 07:36 | EKG ---
Date Performed: 06/17/2017 Time Performed: 10:18:00 PTAGE: 47 years EKG: Sinus rhythm NORMAL ECG PREVIOUS TRACING : 05/22/2017 19.42 No significant change from previous tracing noted. DOCTOR: Jose Antonio Hogue Interpretating Date/Time 06/24/2017 07:34:18
[2017-06-24 08:00] VITALS: BP 110/54; PULSE 65; RESP 18; TEMP 97.8; O2SAT 91
[2017-06-24] MEDS: INSULIN ASPART SUPPLEMENTAL SCALE SQ SCH ×4 (08:00→20:34)
[2017-06-24] MEDS: NICOTINE 7 MG/24 HR PATCH T-DERMAL SCH (08:44)
[2017-06-24] MEDS: SEVELAMER CARBONATE 800 MG TAB PO SCH ×3 (08:51→18:22)
[2017-06-24] MEDS: DOCUSATE SODIUM 50 MG/SENNA 8.6 MG TAB PO SCH ×2 (08:55→20:32)
[2017-06-24] MEDS: APIXABAN 2.5 MG TABLET PO SCH ×2 (08:56→20:32)
[2017-06-24] MEDS: CHOLECALCIFEROL (VIT D3) 5000 UNIT CAP PO SCH (08:56)
[2017-06-24] MEDS: SERTRALINE HCL 100 MG TAB PO SCH (08:57)
[2017-06-24] MEDS: PANTOPRAZOLE SOD 40 MG DELAYED RELEASE TAB PO SCH (08:59)
[2017-06-24] MEDS: LISINOPRIL 20 MG TAB PO SCH (09:00)
[2017-06-24] MEDS: CARVEDILOL 12.5 MG TAB PO SCH ×2 (09:00→20:32)
[2017-06-24] MEDS: CIPROFLOXACIN 500 MG TAB PO SCH (09:00)
[2017-06-24] MEDS: VITAMIN B CMPLX/VITC/FOLIC AC CAP PO SCH (09:00)
[2017-06-24] MEDS: POLYETHYLENE GLYCOL 17 GM PKG PO SCH (09:00)
[2017-06-24] MEDS: CLOPIDOGREL 75 MG TAB PO SCH (09:01)
[2017-06-24] MEDS: SODIUM CHLORIDE 0.9% FLUSH 10 ML FLUSH IV FLUSH SCH ×2 (09:03→20:35)
[2017-06-24] MEDS: levETIRAcetam INJ 500 MG in SODIUM CHLORIDE 0.9% INJ 100 ML IV SCH (09:03)
[2017-06-24] MEDS: INSULIN DETEMIR 100 UNITS/ML VIAL SQ SCH ×2 (09:03→20:34)
--- NOTE | 2017-06-24 09:33 | HHI.FPPN ---
Subjective Remarks Pt is awake and alert this morning and states that "she is back." She complains of pain in her back around the site of insertion of the splenic drain. (EkoLeena MD R2) Objective Vitals Vital Signs Date Time Temp Pulse Resp B/P (MAP) Pulse Ox O2 Delivery O2 Flow Rate FiO2 06/24/17 08:00 97.8 65 18 110/54 (72) 91 06/24/17 06:29 19 06/24/17 04:00 Nasal Cannula 2.00 06/24/17 04:00 97.8 63 18 94/43 (60) 96 06/24/17 00:00 97.9 62 19 109/51 (70) 93 06/24/17 00:00 Nasal Cannula 2.00 06/23/17 20:55 Nasal Cannula 2.00 06/23/17 20:08 65 06/23/17 20:00 97.8 66 18 109/50 (69) 92 06/23/17 16:05 98.3 66 18 116/53 (74) 91 06/23/17 12:05 98.1 69 18 158/60 (92) 92 I/O 06/23/17 06/23/17 06/23/17 06/24/17 06/24/17 06/24/17 07:00 15:00 23:00 07:00 15:00 23:00 Intake Total 0 ml 240 ml 680 ml Output Total 30 ml 220 ml Balance -30 ml 240 ml 460 ml Intake Oral 0 ml 240 ml 480 ml IV Total 200 ml Output Urine Total 0 ml 200 ml Drainage Total 30 ml 20 ml # Voids 0 # Bowel Movements 0 0 (EkoLeena MD R2) Result Diagram: 06/24/1752406/24/17524 Objective Remarks General: Sitting up in bed, in no distress, excited Skin: 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 Lungs: CTAB, no wheezing, rales, or rhonchi. Abdomen: Soft, tender to palpation at drainage site, however no signs of cellulitis on skin around drain, no guarding on abdominal palpation. BACK: Spleen abscess drain in place with no redness or bruising at the insertion site. Slow drainage of serosanguineous fluid Neuro: Alert and oriented, EOMI, PERRLA, CN intact Procedures splenic abscess drainage by IR 06/20/17 (Leena Johnston MD R2) A/P Assessment and Plan 47-year-old female with a past medical history of end-stage renal disease, diabetes, hypertension, PAD, recently discharged from the hospital on 03 June where she was found to have an acute splenic infarction, presented with a one-day history of chest pain and left shoulder pain as well as elevated potassium and creatinine. She was admitted to the hospital for dialysis and ACS rule out and was found to have a splenic abscess identified on CTA performed on 06/19/17. Splenic abscess drained placed by IR on 06/21. ID is assisting with antibiotic management. Seen and examined with Dr. Grey. Discussed with Dr. Davis Discharge Planning Pending management of splenic abscess, resolution of altered mental status, normal white count, afebrile, stable vital signs, safe discharge. (Leena Johnston MD R2) Attending Attestation Patient seen and examined. Case reviewed and discussed Agree with plan of care as discussed with me and documented in the resident note. (Irene Davis MD) Problem List: (1) Altered mental status ICD Codes: R41.82 - Altered mental status, unspecified Status: Resolved Plan: Acute altered mental status on 06/22/17, essentially benign neuro exam otherwise. Stat EEG performed that day showing triphasic waves, possibly metabolic encephalopathy. - Much alert today and fully oriented - Discontinue Keppra per neurology - Seizure and fall precautions - Delirium precautions (2) Splenic abscess ICD Codes: D73.3 - Abscess of spleen Status: Acute Plan: CTA performed on 06/19 showed interval development of air-containing fluid collection in the spleen measuring up to 6.9 x 3.0 cm in maximal dimension with subcapsular fluid in region of prior splenic infarction, concerning for splenic abscess. No significant aortic or mesenteric stenoses identified. Interventional radiology drained abscess 06/20/17--serosanguineous drainage noted today. Cultures of drained abscess fluid growing propionibacterium and collins-sensitive Enterobacter cloacae. -ID consulted - continue vancomycin for previously diagnosed bacteremia. -DC cefepime. Start Rocephin -Follow blood cultures, no growth in 3 days -Tylenol 1000mg by mouth every 6 hours scheduled for pain -Expect IR to possibly remove drain in 1-2 days. 20 ml drainage noted in the last 24 hours -Due to continuous complaint of pain in the left back, PA lateral chest x-ray was performed on 06/23/17 which showed worsening bibasilar air space disease with possible small pleural effusions. Asymptomatic from a pneumonia standpoint. Patient is currently on IV antibiotics and is well covered. (3) ESRD (end stage renal disease) on dialysis ICD Codes: N18.6 - End stage renal disease; Z99.2 - Dependence on renal dialysis Status: Chronic Plan: -Hemodialysis MWF per nephrology recommendations, Dr. Gilbert on board -Avoid nephrotoxic agents (4) Hyperkalemia ICD Codes: E87.5 - Hyperkalemia Status: Acute Plan: -Fluctuating levels of potassium, 5.5 today -Dialysis as above (5) History of bacteremia ICD Codes: Z87.898 - Personal history of other specified conditions Status: Acute Plan: History of bacteremia with recurrent fever secondary to Enterococcus and Klebsiella on last admission. Patient was previously being treated for enterococcus bacteremia with vancomycin 1 g 3 times a week (MWF) after hemodialysis and Ciprofloxacin PO. -Continue IV vanco after HD -Discontinue Cipro 750mg PO daily per infectious disease (6) Hypertension ICD Codes: I10 - Essential (primary) hypertension Status: Chronic Plan: -Continue home medications: Amlodipine, Coreg, and lisinopril with hold parameters for low blood pressure and/or bradycardia (7) Diabetes ICD Codes: E11.9 - Type 2 diabetes mellitus without complications Status: Chronic Plan: -Takes insulin glargine 25 units subcutaneous twice a day at home -Continue glucose monitoring with sliding scale insulin -Continue SSI (Low) (8) Peripheral vascular disease ICD Codes: I73.9 - Peripheral vascular disease, unspecified Status: Acute Plan: - Resume clopidogrel post-splenic abscess drain placement (9) Calciphylaxis ICD Codes: E83.59 - Other disorders of calcium metabolism Status: Acute Plan: -Continue thiosulfate per nephrology (10) Tobacco abuse ICD Codes: Z72.0 - Tobacco use Status: Chronic Plan: -Nicotine patch 7 mg (11) Physical deconditioning ICD Codes: R53.81 - Other malaise Status: Chronic Plan: -PT consulted to assist with ambulation and exercises (12) Chronic Medical Problems Status: Chronic Plan: Diabetic neuropathy: Holding gabapentin 400 mg by mouth 3 times a day due to recent altered mental status. Will resume this medication slowly Hyperlipidemia: Continue Atorvastin, Pravastatin Anxiety/Depression: Continue sertraline 100 mg by mouth daily, holding trazodone 50 mg by mouth at bedtime due to recent altered mental status. Will resume this medication slowly (13) Hyperphosphatemia ICD Codes: E83.39 - Other disorders of phosphorus metabolism Status: Resolved Plan: -Restarted Renvela 3200mg TID on 06/20 -Follow Phos (14) FEN/DVT PPX/GI PPX/Nursing Orders Plan: Fluids: Oral fluids only, on hemodialysis Electrolytes: Will monitor and replace as needed Nutrition: Renal diet DVT Prophylaxis: Unilateral SCDs, Eliquis 2.5 mg by mouth twice a day PRN Medications Zofran 4 mg IV push every 6 hours when necessary nausea vomiting Holding Percocet 325-5 mg 1 tab by mouth every 6 hours when necessary pain 1-5 Holding Percocet 325-10 mg 1 tab by mouth every 6 hours when necessary pain 6-10 Holding Morphine 4 mg IV every 3 hours when necessary breakthrough pain -Vitals Q4h -Monitor I's and O's -Fall precautions -Neurochecks -Seizure precautions/fall precautions -patient experience coordinator with telemetry with continuous vital signs -Activity OOB with assistance -PT to assist with ambulation -Case management consult to assist with discharge disposition (Leena Johnston MD R2) Problem Qualifiers (1) Hypertension: Qualified Codes: I10 - Essential (primary) hypertension (2) Diabetes: Leena Johnston MD R2 Jun 24, 2017 09:33 Irene Davis MD Jul 01, 2017 16:39
--- NOTE | 2017-06-24 11:13 | HHI.NPPN ---
Subjective History of Present Illness Patient is a 47-year-old the female with history of end-stage renal disease, diabetes, blindness, peripheral vascular disease, calciphylaxis, ischemic left foot, previous right BKA who has certainly admitted with the chest pain she's described the pain in the left side radiating to his left shoulder, patient has similar complaints a few weeks ago, and was discharged after workup She goes to dialysis on Saturday, Saturday and Saturday Additional Remarks doing better Review of Systems Gastrointestinal Gastrointestinal: Abdominal Pain Objective Data Data Vital Signs Date Time Temp Pulse Resp B/P (MAP) Pulse Ox O2 Delivery O2 Flow Rate FiO2 06/24/17 08:00 97.8 65 18 110/54 (72) 91 06/24/17 06:29 19 06/24/17 04:00 Nasal Cannula 2.00 06/24/17 04:00 97.8 63 18 94/43 (60) 96 06/24/17 00:00 97.9 62 19 109/51 (70) 93 06/24/17 00:00 Nasal Cannula 2.00 06/23/17 20:55 Nasal Cannula 2.00 06/23/17 20:08 65 06/23/17 20:00 97.8 66 18 109/50 (69) 92 06/23/17 16:05 98.3 66 18 116/53 (74) 91 06/23/17 12:05 98.1 69 18 158/60 (92) 92 -: 06/24/17 0525 06/24/17 0525 Physical Exam General Appearance: Well Developed, Well Nourished Neck Neck Exam: Neck Supple Pulmonary Resp Exam: Clear Bilaterally, Breath Sounds Equal Cardiology CV Exam: Regular Gastrointestinal/Abdomen GI Exam: Soft, Non-Tender, Bowel Sounds Present Extremeties Extremities Exam: Trace Edema Extremeties Remarks ischemic l foot Assessment/Plan Problem List: (1) ESRD (end stage renal disease) on dialysis ICD Codes: N18.6 - End stage renal disease; Z99.2 - Dependence on renal dialysis Status: Chronic Plan: HD MWF Hemodialysis today seen at dialysis UF 5 L on 2 K bath better today alert responsive (2) Hyperkalemia ICD Codes: E87.5 - Hyperkalemia Status: Acute Plan: Hemodialysis planned (3) Calciphylaxis ICD Codes: E83.59 - Other disorders of calcium metabolism Status: Acute Plan: Continue with sodium thiosulfate (4) Peripheral vascular disease ICD Codes: I73.9 - Peripheral vascular disease, unspecified Status: Acute Plan: Had previous procedures done (5) Diabetes ICD Codes: E11.9 - Type 2 diabetes mellitus without complications Status: Chronic Plan: Monitor blood glucose (6) Hypertension ICD Codes: I10 - Essential (primary) hypertension Status: Chronic Plan: Continue to monitor blood pressure (7) Chest pain ICD Codes: R07.9 - Chest pain, unspecified Status: Acute Plan: as above follow VQ scan Problem Qualifiers (1) Diabetes: (2) Hypertension: Qualified Codes: I10 - Essential (primary) hypertension (3) Chest pain: Qualified Codes: R07.9 - Chest pain, unspecified Gerri Gilbert MD Jun 24, 2017 11:12
--- NOTE | 2017-06-24 12:59 | HHI.IDPN ---
Subjective Subjective Remarks 47 y/o female with ESRD, on HD MWF, on Rx for Enterococcal and Kleb sepsis, being Rxd for possible endocarditis, found to have splenic infarct during last admission. Rx supposed to toña completed this month. Readmitted for CP and L shoulder pain. Cardiac work-up negative. Found now to have splenic abscess. has been afebrile. WBC normal. BC negative Notes reviewed Temps ok Has been having intermittent confusion Neurology notes reviewed Brain MRI negative BC negative C/S from the drain with Propionobacterium and Enterobacter Has percutaneous drainage of splenic abscess - not a lot of output C/O pain at site Antibiotics Vanco Cefepime Cipro Lines PIV Past Medical History ESRD, on dialysis Saturday and Saturday Hypertension CAD Hyperlipidemia Diabetes Hepatitis C Legally blind Prior miscarriage PVD Calciphylaxis Past Surgical History Cholecystectomy R UE AV fistula Right nephrectomy Dental extraction Tonsillectomy R BKA Allergies: Coded Allergies: codeine (Verified Allergy, Severe, HYPERACTIVITY &ITCH, 06/17/17) iodine (Verified Allergy, Severe, TOPICAL/ITCH, 06/17/17) potassium iodide (Verified Allergy, Severe, TOPICAL/ITCH, 06/17/17) povidone-iodine (Verified Allergy, Severe, TOPICAL/ITCH, 06/17/17) sodium iodide (Verified Allergy, Severe, TOPICAL/ITCH, 06/17/17) sodium iodide (Verified Allergy, Severe, TOPICAL/ITCH, 06/17/17) iohexol (Verified Allergy, Intermediate, HIVES, 06/17/17) Pork/Porcine Containing Products (Verified Allergy, Unknown, 06/17/17) penicillin G (Verified Allergy, Unknown, 06/17/17) Objective . Vital Signs Date Time Temp Pulse Resp B/P (MAP) Pulse Ox O2 Delivery O2 Flow Rate FiO2 06/24/17 11:00 Nasal Cannula 2.00 21 06/24/17 08:00 97.8 65 18 110/54 (72) 91 06/24/17 06:29 19 06/24/17 04:00 Nasal Cannula 2.00 06/24/17 04:00 97.8 63 18 94/43 (60) 96 06/24/17 00:00 97.9 62 19 109/51 (70) 93 06/24/17 00:00 Nasal Cannula 2.00 06/23/17 20:55 Nasal Cannula 2.00 06/23/17 20:08 65 06/23/17 20:00 97.8 66 18 109/50 (69) 92 06/23/17 16:05 98.3 66 18 116/53 (74) 91 . Laboratory Tests Test 06/22/17 13:10 06/23/17 10:20 06/24/17 05:25 White Blood Count 9.4 TH/MM3 10.2 TH/MM3 10.6 TH/MM3 Red Blood Count 3.17 MIL/MM3 3.49 MIL/MM3 3.07 MIL/MM3 Hemoglobin 9.6 GM/DL 10.7 GM/DL 9.8 GM/DL Hematocrit 29.8 % 33.0 % 29.4 % Mean Corpuscular Volume 94.0 FL 94.6 FL 95.5 FL Mean Corpuscular Hemoglobin 30.2 PG 30.8 PG 31.9 PG Mean Corpuscular Hemoglobin Concent 32.1 % 32.5 % 33.3 % Red Cell Distribution Width 17.2 % 17.3 % 17.6 % Platelet Count 308 TH/MM3 337 TH/MM3 321 TH/MM3 Mean Platelet Volume 8.1 FL 8.1 FL 8.3 FL Neutrophils (%) (Auto) 80.3 % Lymphocytes (%) (Auto) 7.9 % Monocytes (%) (Auto) 10.6 % Eosinophils (%) (Auto) 0.8 % Basophils (%) (Auto) 0.4 % Neutrophils # (Auto) 7.6 TH/MM3 Lymphocytes # (Auto) 0.7 TH/MM3 Monocytes # (Auto) 1.0 TH/MM3 Eosinophils # (Auto) 0.1 TH/MM3 Basophils # (Auto) 0.0 TH/MM3 CBC Comment DIFF FINAL Differential Comment Laboratory Tests Test 06/22/17 17:06 06/23/17 10:20 06/24/17 05:25 Blood Urea Nitrogen 64 MG/DL 72 MG/DL Creatinine 7.37 MG/DL 8.56 MG/DL Random Glucose 133 MG/DL 110 MG/DL Calcium Level 9.3 MG/DL 9.1 MG/DL Sodium Level 134 MEQ/L 132 MEQ/L Potassium Level 4.7 MEQ/L 5.5 MEQ/L Chloride Level 93 MEQ/L 94 MEQ/L Carbon Dioxide Level 24.6 MEQ/L 22.1 MEQ/L Anion Gap 16 MEQ/L 16 MEQ/L Estimat Glomerular Filtration Rate 6 ML/MIN 5 ML/MIN Microbiology Date/Time Source Procedure Growth Status 06/21/17 18:07 Blood Peripheral Aerobic Blood Culture - Preliminary NO GROWTH IN 3 DAYS Resulted 06/21/17 18:07 Blood Peripheral Anaerobic Blood Culture - Preliminary NO GROWTH IN 3 DAYS Resulted 06/21/17 18:00 Blood Peripheral Aerobic Blood Culture - Preliminary NO GROWTH IN 3 DAYS Resulted 06/21/17 18:00 Blood Peripheral Anaerobic Blood Culture - Preliminary NO GROWTH IN 3 DAYS Resulted Imaging RADIOLOGY STUDIES/FILMS REVIEWED Abscess Drainage CT 06/20/17 0000 Signed Impressions: Service Date/Time: June 10:20 - CONCLUSION: Uncomplicated CT guided drainage of the left upper quadrant perisplenic fluid collection. Samples were saved and sent to lab for Gram stain and cultures. Abhijit De Los Santos MD Chest X-Ray 06/18/17 0600 Signed Impressions: Service Date/Time: Sunday, June 18, 2017 08:33 - CONCLUSION: 1. Linear airspace disease in the right middle lobe and lingula consistent with atelectasis. Differential considerations include aspiration in the appropriate clinical setting. Capo Liu MD Abdomen/Pelvis CT 06/18/17 0000 Signed Impressions: Service Date/Time: Monday, June 19, 2017 08:14 - CONCLUSION: 1. Interval development of air-containing fluid collection in the spleen measuring up to 6.9 x 3.0 cm in maximal dimension with subcapsular fluid in region of prior splenic infarction. This finding is concerning for splenic abscess. 2. Mild bibasilar ground glass opacities and platelike air space consolidation in the left lower lobe, likely atelectasis. 3. No significant aortic or mesenteric stenosis as questioned. 4. End-stage appearing kidneys. 5. Trace place pelvic free fluid. Findings were personally discussed with Dr. Johnston. Capo Liu MD Abdomen X-Ray 06/18/17 0000 Signed Impressions: Service Date/Time: Sunday, June 18, 2017 13:38 - CONCLUSION: 1. No acute abdominal abnormality is identified. There are no findings to indicate obstruction. 2. Severe renal artery vascular calcification. Abhijit De Los Santos MD Lung Scan- Nuclear Medicine 06/17/17 0000 Signed Impressions: Service Date/Time: Saturday, June 17, 2017 16:03 - CONCLUSION: 1. Central trapping on the ventilatory images. Nonspecific but can be seen in COPD. 2. Otherwise, low probability scan for pulmonary embolus. Dennis Trimble MD Physical Exam GENERAL: awake and alert, not in respiratory distress. SKIN: Warm and dry. Has superficial round ulcers on face, with some crusting and some in her UE HEAD: Atraumatic. Normocephalic. No temporal wasting, or tenderness. EYES: [place] conjunctiva. No petechia or hemorrhage. Pupils equal, round and reactive to light. Extraocular movements full and intact. No scleral icterus. No injection or drainage. EARS, NOSE AND THROAT: Nose without bleeding or purulent nasal discharge. No sinus tenderness. Mucous membranes pink and moist. No oral lesions noted. She is edentulous. NECK: Trachea midline. Supple and not tender, no meningeal signs CARDIOVASCULAR: Regular rate and rhythm. No murmurs, rubs or gallops heard RESPIRATORY: Clear to auscultation. Breath sounds equal bilaterally. No rales , wheezing or rhonchi ABDOMEN: Soft, nondistended, with diffuse abdominal tenderness, but no guarding or rebound. Bowel sounds present and normoactive. No organomegaly. EXTREMITIES: No clubbing, cyanosis, or edema. No joint effusion, has good ROM. No calf tenderness. Well perfused and warm. RUE AVF with no evidence of infection. S/P RBKA, well healed stump NEUROLOGICAL: Awake and alert. Cranial nerves grossly intact. Motor grossly within normal limits. PSYCHIATRIC: Normal affect, calm and cooperative. LINE: No evidence of infection Assessment & Plan Remarks IMPRESSION Enterococcal and Klebsiella bacteremia, on Rx for possible endocarditis, with splenic infarct - MARILU no vegetation done during last admission Splenic abscess, developed while on Rx for bacteremia - C/S with different bacteria: Enterobacter and Propionobacterium ESRD, on HD MWF Hx IVDU, ?continued use of IVD Has skin lesions which according to patient is from calciphylaxis, ?popping or picking due to drugs RECOMMENDATION Continue IV Vancomycin - spoke with Floor RN to make sure she gets her IV Vanco today after her HD Change IV Cefepime to Rocephin Stop Cipro Monitor progress Spoke with HD RN, that IV Vanco needs to be given by floor RN Carrie Sanchez MD 13, 2017 12:59
[2017-06-24 14:25] VITALS: BP 123/55; PULSE 73; RESP 18; TEMP 98; O2SAT 94
[2017-06-24] MEDS: cefTRIAXone INJ 2,000 MG in SODIUM CHLORIDE 0.9% INJ 100 ML IV SCH (14:55)
[2017-06-24] MEDS ORDERED: levETIRAcetam 500 MG/NS 100 ML IV ONE ×2 (15:45)
[2017-06-24 16:00] VITALS: BP 116/49; PULSE 78; RESP 18; TEMP 97.9; O2SAT 91
[2017-06-24] MEDS: VANCOMYCIN INJ 1,000 MG in SODIUM CHLOR 0.9% 250 ML INJ 250 ML IV SCH (18:21)
[2017-06-24 20:00] VITALS: BP 134/62; PULSE 75; RESP 20; TEMP 97.8; O2SAT 93
[2017-06-24] MEDS: REMOVE OLD PATCH T-DERMAL SCH (20:35)
[2017-06-25] VITALS (7 sets, daily range): BP systolic 116–152; BP diastolic 51–61; PULSE 66–86; RESP 16–20; TEMP 97.8–98.7; O2SAT 91–98
[2017-06-25] MEDS: ACETAMINOPHEN 1000 MG/100 ML 100 ML IV SCH ×4 (00:40→17:29)
[2017-06-25 07:13] LABS: AUTOMATED NEUTROPHIL # 6.9 TH/MM3 (1.8-7.7); BASOPHIL # 0.1 TH/MM3 (0-0.2); BASOPHIL % 0.8 % (0.0-2.0); EOSINOPHIL # 0.5 TH/MM3 (0-0.4); EOSINOPHIL % 5.3 % (0.0-4.0); HEMATOCRIT 30.2 % (35.0-46.0); HEMO FLAGS DIFF FINAL; LYMPH % 9.2 % (9.0-44.0); LYMPHOCYTE # 0.8 TH/MM3 (1.0-4.8); MEAN CELL VOLUME 94.5 FL (80.0-100.0); MEAN CORPUSCULAR HEMOGLOBIN 31.3 PG (27.0-34.0); MEAN CORPUSCULAR HGB CONC 33.1 % (32.0-36.0); MONO % 9.1 % (0.0-8.0); NEUT % 75.6 % (16.0-70.0); PLATELET COUNT 310 TH/MM3 (150-450); RED BLOOD COUNT 3.19 MIL/MM3 (4.00-5.30); RED CELL DISTRIBUTION WIDTH 16.8 % (11.6-17.2); WHITE BLOOD COUNT 9.2 TH/MM3 (4.0-11.0)
[2017-06-25 07:52] LABS: POTASSIUM 4.3 MEQ/L (3.5-5.1)
[2017-06-25] MEDS: INSULIN ASPART SUPPLEMENTAL SCALE SQ SCH ×4 (08:00→21:01)
[2017-06-25] MEDS: levETIRAcetam INJ 500 MG in SODIUM CHLORIDE 0.9% INJ 100 ML IV SCH (08:54)
[2017-06-25] MEDS: VITAMIN B CMPLX/VITC/FOLIC AC CAP PO SCH (08:55)
[2017-06-25] MEDS: CLOPIDOGREL 75 MG TAB PO SCH (08:55)
[2017-06-25] MEDS: APIXABAN 2.5 MG TABLET PO SCH ×2 (08:56→21:00)
[2017-06-25] MEDS: NICOTINE 7 MG/24 HR PATCH T-DERMAL SCH (08:56)
[2017-06-25] MEDS: CARVEDILOL 12.5 MG TAB PO SCH ×2 (08:56→21:00)
[2017-06-25] MEDS: CHOLECALCIFEROL (VIT D3) 5000 UNIT CAP PO SCH (08:56)
[2017-06-25] MEDS: PANTOPRAZOLE SOD 40 MG DELAYED RELEASE TAB PO SCH (08:56)
[2017-06-25] MEDS: SERTRALINE HCL 100 MG TAB PO SCH (08:57)
[2017-06-25] MEDS: LISINOPRIL 20 MG TAB PO SCH (08:57)
[2017-06-25] MEDS: DOCUSATE SODIUM 50 MG/SENNA 8.6 MG TAB PO SCH ×2 (09:00→21:00)
[2017-06-25] MEDS: INSULIN DETEMIR 100 UNITS/ML VIAL SQ SCH ×2 (09:00→21:00)
[2017-06-25] MEDS: POLYETHYLENE GLYCOL 17 GM PKG PO SCH (09:00)
[2017-06-25] MEDS: SEVELAMER CARBONATE 800 MG TAB PO SCH ×3 (09:08→17:29)
[2017-06-25] MEDS: SODIUM CHLORIDE 0.9% FLUSH 10 ML FLUSH IV FLUSH SCH ×2 (09:08→21:00)
--- NOTE | 2017-06-25 10:56 | HHI.FPPN ---
Subjective Remarks Ms Laguerre is doing much better today and is in less pain. She is tolerating a regular diet and is feeling better although she continues to have abdominal pain. She only had nausea after administration of Keppra but denies vomiting. No fever or chills. (Leena Johnston MD R2) Objective Vitals Vital Signs Date Time Temp Pulse Resp B/P (MAP) Pulse Ox O2 Delivery O2 Flow Rate FiO2 06/25/17 08:00 98.7 73 18 152/59 (90) 91 06/25/17 04:00 Room Air 06/25/17 04:00 97.8 70 20 135/61 (85) 92 06/25/17 00:00 Room Air 06/25/17 00:00 98.3 74 20 132/59 (83) 93 06/24/17 20:00 Nasal Cannula 2.00 06/24/17 20:00 97.8 75 20 134/62 (86) 93 06/24/17 16:00 97.9 78 18 116/49 (71) 91 06/24/17 14:25 98.0 73 18 123/55 (77) 94 06/24/17 11:00 Nasal Cannula 2.00 21 I/O 06/24/17 06/24/17 06/24/17 06/25/17 06/25/17 06/25/17 07:00 15:00 23:00 07:00 15:00 23:00 Intake Total 680 ml 730 ml 560 ml Output Total 220 ml 5000 ml 5 ml 15 ml Balance 460 ml -5000 ml 725 ml 545 ml Intake Oral 480 ml 480 ml 360 ml IV Total 200 ml 250 ml 200 ml Output Urine Total 200 ml 0 ml 0 ml Drainage Total 20 ml 5 ml 15 ml Hemodialysis 5000 ml # Bowel Movements 0 0 0 (Leena Johnston MD R2) Result Diagram: 06/25/17 0609 06/25/17 0609 Objective Remarks General: Sitting up in bed, in no distress, happy to see us Skin: 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 Lungs: CTAB, no wheezing, rales, or rhonchi. Abdomen: Soft, less tender to palpation at drainage site than previous day, however no signs of cellulitis on skin around drain, no guarding on abdominal palpation. BACK: Spleen abscess drain in place with no redness or bruising at the insertion site. Slow drainage of serosanguineous fluid Neuro: Alert and oriented, EOMI, PERRLA, CN intact Procedures splenic abscess drainage by IR 06/20/17 (Leena Johnston MD R2) A/P Assessment and Plan 47-year-old female with a past medical history of end-stage renal disease, diabetes, hypertension, PAD, recently discharged from the hospital on 03 June where she was found to have an acute splenic infarction, presented with a one-day history of chest pain and left shoulder pain as well as elevated potassium and creatinine. She was admitted to the hospital for dialysis and ACS rule out and was found to have a splenic abscess identified on CTA performed on 06/19/17. Splenic abscess drained placed by IR on 06/21. ID is assisting with antibiotic management. She is currently on Rocephin IV and Vancomycin IV. Seen and examined with Dr. Grey. Discussed with Dr. Davis Discharge Planning Pending management of splenic abscess, stable vital signs, safe discharge. (Leena Johnston MD R2) Attending Attestation Patient seen and examined. Case reviewed and discussed Agree with plan of care as discussed with me and documented in the resident note. (Irene Davis MD) Problem List: (1) Splenic abscess ICD Codes: D73.3 - Abscess of spleen Status: Acute Plan: CTA performed on 06/19 showed interval development of air-containing fluid collection in the spleen measuring up to 6.9 x 3.0 cm in maximal dimension with subcapsular fluid in region of prior splenic infarction, concerning for splenic abscess. No significant aortic or mesenteric stenoses identified. Interventional radiology drained abscess 06/20/17--serosanguineous drainage noted today. Cultures of drained abscess fluid growing propionibacterium and collins-sensitive Enterobacter cloacae. -ID consulted - continue vancomycin for previously diagnosed bacteremia -Continue Rocephin IV started on 06/24/17 -Blood cultures show no growth in 4 days -Tylenol 1000mg by mouth every 6 hours scheduled for pain -Waiting on IR to determine when to remove drain (2) Altered mental status ICD Codes: R41.82 - Altered mental status, unspecified Status: Resolved Plan: Acute altered mental status on 06/22/17, essentially benign neuro exam otherwise. Stat EEG performed that day showing triphasic waves, possibly metabolic encephalopathy. - Much alert today and fully oriented - Will continue Keppra due to good response, currently on IV and will transition to PO - She would most likely need to be on Keppra as an outpatient until she follows up with her PCP or neurology - Seizure and fall precautions (3) ESRD (end stage renal disease) on dialysis ICD Codes: N18.6 - End stage renal disease; Z99.2 - Dependence on renal dialysis Status: Chronic Plan: -Hemodialysis MWF per nephrology recommendations, Dr. Gilbert on board -Avoid nephrotoxic agents (4) Hyperkalemia ICD Codes: E87.5 - Hyperkalemia Status: Acute Plan: -Fluctuating levels of potassium -Dialysis as above (5) Hypertension ICD Codes: I10 - Essential (primary) hypertension Status: Chronic Plan: -Continue home medications: Amlodipine, Coreg, and lisinopril with hold parameters for low blood pressure and/or bradycardia (6) Diabetes ICD Codes: E11.9 - Type 2 diabetes mellitus without complications Status: Chronic Plan: -Levemir 5 units BID -Continue glucose monitoring with SSI - does not have much SSI requirement (7) Peripheral vascular disease ICD Codes: I73.9 - Peripheral vascular disease, unspecified Status: Acute Plan: - Continue clopidogrel 75 mg PO daily (8) Calciphylaxis ICD Codes: E83.59 - Other disorders of calcium metabolism Status: Acute Plan: -Continue thiosulfate per nephrology (9) Tobacco abuse ICD Codes: Z72.0 - Tobacco use Status: Chronic Plan: -Nicotine patch 7 mg (10) Physical deconditioning ICD Codes: R53.81 - Other malaise Status: Chronic Plan: -PT consulted to assist with ambulation and exercises (11) Chronic Medical Problems Status: Chronic Plan: Diabetic neuropathy: Holding gabapentin 400 mg by mouth 3 times a day due to recent altered mental status. Will resume this medication slowly Hyperlipidemia: Continue Atorvastin, Pravastatin Anxiety/Depression: Continue sertraline 100 mg by mouth daily, holding trazodone 50 mg by mouth at bedtime due to recent altered mental status. Will resume this medication slowly (12) Hyperphosphatemia ICD Codes: E83.39 - Other disorders of phosphorus metabolism Status: Resolved Plan: -Restarted Renvela 3200mg TID on 06/20 -Follow Phos (13) FEN/DVT PPX/GI PPX/Nursing Orders Plan: Fluids: Oral fluids only, on hemodialysis Electrolytes: Will monitor and replace as needed Nutrition: Renal diet DVT Prophylaxis: Unilateral SCDs, Eliquis 2.5 mg by mouth twice a day PRN Medications Zofran 4 mg IV push every 6 hours when necessary nausea vomiting Holding Percocet 325-5 mg 1 tab by mouth every 6 hours when necessary pain 1-5 Holding Percocet 325-10 mg 1 tab by mouth every 6 hours when necessary pain 6-10 Holding Morphine 4 mg IV every 3 hours when necessary breakthrough pain -Vitals Q4h -Monitor I's and O's -Fall precautions -Seizure precautions/fall precautions -telemetry monitor with telemetry with continuous vital signs -Activity OOB with assistance -PT to assist with ambulation -Case management consult to assist with discharge disposition (Leena Johnston MD R2) Problem Qualifiers (1) Hypertension: Qualified Codes: I10 - Essential (primary) hypertension (2) Diabetes: Leena Johnston MD R2 Jun 25, 2017 10:56 Irene Davis MD Jul 01, 2017 16:38
[2017-06-25] MEDS: LACTOBACILLUS ACIDOPHILUS TAB PO SCH ×2 (12:17→17:28)
[2017-06-25] MEDS: cefTRIAXone INJ 2,000 MG in SODIUM CHLORIDE 0.9% INJ 100 ML IV SCH (14:00)
--- NOTE | 2017-06-25 14:14 | HHI.NPPN ---
Subjective History of Present Illness Patient is a 47-year-old the female with history of end-stage renal disease, diabetes, blindness, peripheral vascular disease, calciphylaxis, ischemic left foot, previous right BKA who has certainly admitted with the chest pain she's described the pain in the left side radiating to his left shoulder, patient has similar complaints a few weeks ago, and was discharged after workup She goes to dialysis on Saturday, Saturday and Saturday Additional Remarks doing better Review of Systems Gastrointestinal Gastrointestinal: Abdominal Pain Objective Data Data 06/25/17 06/26/17 19:00 07:00 Intake Total 205 ml Balance 205 ml IV Total 205 ml Vital Signs Date Time Temp Pulse Resp B/P (MAP) Pulse Ox O2 Delivery O2 Flow Rate FiO2 06/25/17 12:00 98.3 70 18 121/51 (74) 95 06/25/17 08:00 98.7 73 18 152/59 (90) 91 06/25/17 04:00 Room Air 06/25/17 04:00 97.8 70 20 135/61 (85) 92 06/25/17 00:00 Room Air 06/25/17 00:00 98.3 74 20 132/59 (83) 93 06/24/17 20:00 Nasal Cannula 2.00 06/24/17 20:00 97.8 75 20 134/62 (86) 93 06/24/17 16:00 97.9 78 18 116/49 (71) 91 06/24/17 14:25 98.0 73 18 123/55 (77) 94 -: 06/25/17 0609 06/25/17 0609 Physical Exam General Appearance: Well Developed, Well Nourished Neck Neck Exam: Neck Supple Pulmonary Resp Exam: Clear Bilaterally, Breath Sounds Equal Cardiology CV Exam: Regular Gastrointestinal/Abdomen GI Exam: Soft, Non-Tender, Bowel Sounds Present Extremeties Extremities Exam: Trace Edema Extremeties Remarks ischemic l foot Assessment/Plan Problem List: (1) ESRD (end stage renal disease) on dialysis ICD Codes: N18.6 - End stage renal disease; Z99.2 - Dependence on renal dialysis Status: Chronic Plan: HD MWF Hemodialysis yesterday 5 L getting Vanco/Ceftriaxone fluid Enterobacter/Propionibacterium alert responsive doing well drain in place (2) Hyperkalemia ICD Codes: E87.5 - Hyperkalemia Status: Acute Plan: Hemodialysis planned (3) Calciphylaxis ICD Codes: E83.59 - Other disorders of calcium metabolism Status: Acute Plan: Continue with sodium thiosulfate (4) Peripheral vascular disease ICD Codes: I73.9 - Peripheral vascular disease, unspecified Status: Acute Plan: Had previous procedures done (5) Diabetes ICD Codes: E11.9 - Type 2 diabetes mellitus without complications Status: Chronic Plan: Monitor blood glucose (6) Hypertension ICD Codes: I10 - Essential (primary) hypertension Status: Chronic Plan: Continue to monitor blood pressure (7) Chest pain ICD Codes: R07.9 - Chest pain, unspecified Status: Acute Plan: as above follow VQ scan Problem Qualifiers (1) Diabetes: (2) Hypertension: Qualified Codes: I10 - Essential (primary) hypertension (3) Chest pain: Qualified Codes: R07.9 - Chest pain, unspecified Gerri Gilbert MD Jun 25, 2017 14:14
[2017-06-25] MEDS: REMOVE OLD PATCH T-DERMAL SCH (21:00)
[2017-06-25] MEDS ORDERED: diphenhydrAMINE HCL 50 MG CAP PO ONE (21:45)
[2017-06-26] VITALS: BP 116/46; PULSE 65; RESP 16; TEMP 97.6; O2SAT 92
[2017-06-26] MEDS: ACETAMINOPHEN 1000 MG/100 ML 100 ML IV SCH ×4 (00:50→16:36)
[2017-06-26] MEDS: LACTOBACILLUS ACIDOPHILUS TAB PO SCH ×3 (00:50→21:26)
[2017-06-26 04:00] VITALS: BP 125/51; PULSE 68; RESP 18; TEMP 97.6; O2SAT 92
[2017-06-26 07:33] LABS: HEMATOCRIT 29.4 % (35.0-46.0); MEAN CELL VOLUME 93.6 FL (80.0-100.0); MEAN CORPUSCULAR HEMOGLOBIN 30.8 PG (27.0-34.0); MEAN CORPUSCULAR HGB CONC 32.9 % (32.0-36.0); PLATELET COUNT 330 TH/MM3 (150-450); RED BLOOD COUNT 3.14 MIL/MM3 (4.00-5.30); REVIEW FLAG FINAL
[2017-06-26 07:53] LABS: POTASSIUM 4.5 MEQ/L (3.5-5.1)
[2017-06-26 08:00] VITALS: BP 115/57; PULSE 66; PULSE 72; RESP 16; TEMP 98.1; O2SAT 95
[2017-06-26] MEDS: INSULIN ASPART SUPPLEMENTAL SCALE SQ SCH ×4 (08:00→21:25)
[2017-06-26] MEDS: LISINOPRIL 20 MG TAB PO SCH (09:00)
[2017-06-26] MEDS: levETIRAcetam INJ 500 MG in SODIUM CHLORIDE 0.9% INJ 100 ML IV SCH (09:00)
[2017-06-26] MEDS: VITAMIN B CMPLX/VITC/FOLIC AC CAP PO SCH (09:00)
[2017-06-26] MEDS: DOCUSATE SODIUM 50 MG/SENNA 8.6 MG TAB PO SCH ×2 (09:00→21:25)
[2017-06-26] MEDS: SERTRALINE HCL 100 MG TAB PO SCH (09:00)
[2017-06-26] MEDS: INSULIN DETEMIR 100 UNITS/ML VIAL SQ SCH ×2 (09:00→21:25)
[2017-06-26] MEDS: PANTOPRAZOLE SOD 40 MG DELAYED RELEASE TAB PO SCH (09:00)
[2017-06-26] MEDS: CARVEDILOL 12.5 MG TAB PO SCH ×2 (09:00→21:27)
[2017-06-26] MEDS: APIXABAN 2.5 MG TABLET PO SCH ×2 (09:00→21:26)
[2017-06-26] MEDS: CLOPIDOGREL 75 MG TAB PO SCH (09:00)
[2017-06-26] MEDS: CHOLECALCIFEROL (VIT D3) 5000 UNIT CAP PO SCH (09:00)
[2017-06-26] MEDS: POLYETHYLENE GLYCOL 17 GM PKG PO SCH (09:00)
[2017-06-26] MEDS: SEVELAMER CARBONATE 800 MG TAB PO SCH ×3 (09:30→18:27)
[2017-06-26] MEDS: ALBUMIN 25% INJ 100 ML IV PRN (11:55)
[2017-06-26] MEDS: SODIUM THIOSULFATE INJ 25,000 MG in WATER STERILE FOR INJ 100 ML IV PRN (12:56)
--- NOTE | 2017-06-26 13:13 | HHI.FPPN ---
Subjective Remarks Ms Laguerre had no acute events overnight. She is lucid, has good memory recall on exam in the dialysis suite today and feels well, but is in pain around her drain site and would like pain medications added again. Denies SOB, CP, N/V/D, DVT pain. (Jaylan Grey MD R1) Objective Vitals Vital Signs Date Time Temp Pulse Resp B/P (MAP) Pulse Ox O2 Delivery O2 Flow Rate FiO2 06/26/17 08:00 98.1 66 16 115/57 (76) 95 06/26/17 04:00 97.6 68 18 125/51 (75) 92 06/26/17 04:00 96 Room Air 21 06/26/17 00:00 96 Room Air 21 06/26/17 00:00 97.6 65 16 116/46 (69) 92 06/25/17 20:00 96 Room Air 21 06/25/17 20:00 98.0 70 16 137/60 (85) 93 06/25/17 16:45 98.0 67 18 98 06/25/17 16:00 97.8 66 18 116/53 (74) 93 I/O 06/25/17 06/25/17 06/25/17 06/26/17 06/26/17 06/26/17 07:00 15:00 23:00 07:00 15:00 23:00 Intake Total 560 ml 205 ml 1060 ml 100 ml Output Total 15 ml Balance 545 ml 205 ml 1060 ml 100 ml Intake Oral 360 ml 960 ml IV Total 200 ml 205 ml 100 ml 100 ml Output Urine Total 0 ml Drainage Total 15 ml # Voids 1 # Bowel Movements 0 1 (Jaylan Grey MD R1) Result Diagram: 06/26/17 0600 06/26/17 0600 Imaging Last 24 hours Impressions Soft Tissue Ultrasound 06/26/17 0000 Signed Impressions: Service Date/Time: Monday, June 26, 2017 17:11 - CONCLUSION: Small fluid collection around the drain Vamsi Keenan MD FACR Objective Remarks General: Sitting up in bed, in no distress, happy to see us, but with back pain where the drain is inserted in upper left flank Skin: 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 poor dentition. Neck: Supple, no lymphadenopathy, no thyromegaly CV: RRR, no murmurs, rubs, or gallops, no edema. Lungs: CTAB, no wheezing, rales, or rhonchi. Abdomen: Soft, very tender to palpation at drainage site with fluctuance from previous day; however no signs of cellulitis on skin around drain, no guarding on abdominal palpation. BACK: Spleen abscess drain in place with no redness or bruising at the insertion site. Slow drainage of serosanguineous fluid Neuro: Alert and oriented, EOMI, PERRLA, CN intact Procedures splenic abscess drainage by IR 06/20/17 Medications and IVs Current Medications Medications (Trade) Dose Ordered Sig/Jen Route Start Time Stop Time Status Last Admin Sodium Chloride 1,000 ml @ 0 mls/hr Q0M PRN OTHER 06/17/17 13:27 (Heparin Inj) 8,000 units UNSCH PRN IV FLUSH 06/17/17 13:30 Sodium Chloride 1,000 ml @ 200 mls/hr Q5H PRN IV 06/17/17 13:27 Sodium Chloride 1,000 ml @ 0 mls/hr Q0M PRN OTHER 06/17/17 13:27 (Mannitol Inj) 12.5 gm UNSCH PRN IV 06/17/17 13:30 Albumin Human 100 ml @ 60 mls/hr UNSCH PRN IV 06/17/17 13:30 06/26/17 11:55 (NS Flush) 5 ml UNSCH PRN IV FLUSH 06/17/17 13:30 (Heparin Inj) UNSCH PRN .XX 06/17/17 13:30 (Gentamicin (Dialysis) Inj) 20 mg UNSCH PRN OTHER 06/17/17 13:30 (Zofran Inj) 4 mg UNSCH PRN IV PUSH 06/17/17 13:30 (Nitrostat Sl) 0.4 mg UNSCH PRN SL 06/17/17 13:30 (Catapres) 0.1 mg UNSCH PRN PO 06/17/17 13:30 (Epogen Inj) 4,000 units UNSCH PRN IV PUSH 06/17/17 13:30 06/26/17 13:44 (Gelfoam 12 Mm/7 Mm Top) 1 foam UNSCH PRN TOP 11/6/17 13:30 06/19/17 10:43 Sodium Thiosulfate 60245 mg/Sterile Water 200 ml @ 150 mls/hr WITH DIALYSIS PRN IV 06/17/17 13:30 06/26/17 12:56 (NS Flush) 2 ml UNSCH PRN IV FLUSH 06/17/17 14:45 (NS Flush) 2 ml BID IV FLUSH 06/17/17 21:00 06/26/17 15:50 (Zofran Inj) 4 mg Q6H PRN IVP 06/17/17 18:00 (Narcan Inj) 0.4 mg UNSCH PRN IV PUSH 06/17/17 14:45 (Areli-Colace) 2 tab BID PO 06/17/17 21:00 06/25/17 21:00 (D50w (Vial) Inj) 50 ml UNSCH PRN IV PUSH 06/17/17 15:00 (Glucagon Inj) 1 mg UNSCH PRN OTHER 06/17/17 15:00 (NovoLOG SUPPLEMENTAL SCALE) 1 ACHS SLIDING SCALE SQ 06/17/17 17:00 06/25/17 21:01 (Coreg) 25 mg BID PO 06/17/17 21:00 06/25/17 21:00 (Vitamin D3) 5,000 units DAILY PO 06/18/17 09:00 06/25/17 08:56 (Zoloft) 100 mg DAILY PO 06/18/17 09:00 06/25/17 08:57 (Nephrocaps) 1 cap DAILY PO 06/18/17 09:00 06/25/17 08:55 (Protonix) 40 mg DAILY PO 06/17/17 15:00 06/25/17 08:56 (Habitrol 7 Mg Patch.24 Hr) 1 patch DAILY T-DERMAL 06/18/17 09:00 06/26/17 14:57 Miscellaneous Information 1 HS T-DERMAL 06/17/17 21:00 06/25/17 21:00 (Desyrel) 50 mg HS PO 06/19/17 21:00 Future Hold 06/20/17 21:24 (Miralax) 17 gm DAILY PO 06/20/17 09:00 06/23/17 08:34 (Levemir Inj) 5 units BID SQ 06/20/17 21:00 06/25/17 21:00 (Renvela) 3,200 mg TIDPC PO 06/20/17 18:30 06/25/17 17:29 Levetriacetam 500 mg/Sodium Chloride 105 ml @ 420 mls/hr DAILY IV 06/23/17 09:00 06/26/17 09:00 Pharmacy Profile Note 0 ml @ 0 mls/hr UNSCH OTHER 06/22/17 13:00 (Plavix) 75 mg DAILY PO 06/23/17 09:00 06/25/17 08:55 (Eliquis) 2.5 mg BID PO 06/22/17 21:00 06/25/17 21:00 Acetaminophen 100 ml @ 400 mls/hr Q6H IV 06/23/17 12:45 06/26/17 16:36 (Norvasc) 5 mg DAILY PO 06/24/17 09:00 06/25/17 08:56 (Prinivil) 20 mg DAILY PO 06/24/17 09:00 06/25/17 08:57 Vancomycin HCl 1000 mg/Sodium Chloride 250 ml @ 250 mls/hr [id number]@1700 IV 06/24/17 17:00 06/26/17 17:38 Ceftriaxone Sodium 2000 mg/ Sodium Chloride 100 ml @ 200 mls/hr Q24H IV 06/24/17 14:00 06/26/17 14:00 (Lactinex) 1 tab Q12HR PO 06/26/17 09:00 (Oramorph Sr) 15 mg Q12HR PO 06/26/17 12:15 06/26/17 14:55 Levetriacetam 250 mg/Sodium Chloride 102.5 ml @ 410 mls/hr [id number]@2100 IV 06/28/17 21:00 (Ultram) 50 mg Q12H PRN PO 06/26/17 17:15 (Jaylan Grey MD R1) Urinary Catheter: No (Jaylan Grey MD R1) A/P Assessment and Plan 47-year-old female with a past medical history of end-stage renal disease, diabetes, hypertension, PAD, recently discharged from the hospital on 03 June where she was found to have an acute splenic infarction, presented with a one-day history of chest pain and left shoulder pain as well as elevated potassium and creatinine. She was admitted to the hospital for dialysis and ACS rule out and was found to have a splenic abscess identified on CTA performed on 06/19/17. Splenic abscess drained placed by IR on 06/21. ID is assisting with antibiotic management. She is currently on Rocephin IV and Vancomycin IV. Seen and examined with Liliam Rosa and [place] Discharge Planning Pending management of splenic abscess, stable vital signs, safe discharge. (Jaylan Grey MD R1) Attending Attestation Patient seen and examined. Case reviewed and discussed Agree with plan of care as discussed with me and documented in the resident note. (Irene Davis MD) Problem List: (1) Splenic abscess ICD Codes: D73.3 - Abscess of spleen Status: Acute Plan: CTA performed on 06/19 showed interval development of air-containing fluid collection in the spleen measuring up to 6.9 x 3.0 cm in maximal dimension with subcapsular fluid in region of prior splenic infarction, concerning for splenic abscess. No significant aortic or mesenteric stenoses identified. Interventional radiology drained abscess 06/20/17--serosanguineous drainage noted today. Cultures of drained abscess fluid growing propionibacterium and collins-sensitive Enterobacter cloacae. -ID consulted - continue vancomycin for previously diagnosed bacteremia -Continue Rocephin IV started on 06/24/17 -Blood cultures show no growth in 4 days -Tylenol 1000mg IV q6h scheduled for pain -Oramorph 15mg PO q12hr -Tramadol 50mg pain >5 -Waiting on IR to determine when to remove drain -Soft tissue US around splenic abscess drain 06/26 pending (2) Altered mental status ICD Codes: R41.82 - Altered mental status, unspecified Status: Resolved Plan: Resolved. Acute altered mental status on 06/22/17, essentially benign neuro exam otherwise. Stat EEG performed that day showing triphasic waves, possibly metabolic encephalopathy. - Much alert today and fully oriented - Will continue Keppra due to good response, currently on IV and will transition to PO -Per pharmacy, will add additional Keppra doses following HD on MWF - She would most likely need to be on Keppra as an outpatient until she follows up with her PCP or neurology - Seizure and fall precautions (3) ESRD (end stage renal disease) on dialysis ICD Codes: N18.6 - End stage renal disease; Z99.2 - Dependence on renal dialysis Status: Chronic Plan: -Hemodialysis MWF per nephrology recommendations, Dr. Gilbert on board -Avoid nephrotoxic agents (4) Hyperkalemia ICD Codes: E87.5 - Hyperkalemia Status: Acute Plan: -Fluctuating levels of potassium -Dialysis as above (5) Hypertension ICD Codes: I10 - Essential (primary) hypertension Status: Chronic Plan: -Continue home medications: Amlodipine, Coreg, and lisinopril with hold parameters for low blood pressure and/or bradycardia (6) Diabetes ICD Codes: E11.9 - Type 2 diabetes mellitus without complications Status: Chronic Plan: -Levemir 5 units BID -Continue glucose monitoring with SSI - does not have much SSI requirement (7) Peripheral vascular disease ICD Codes: I73.9 - Peripheral vascular disease, unspecified Status: Acute Plan: - Continue clopidogrel 75 mg PO daily (8) Calciphylaxis ICD Codes: E83.59 - Other disorders of calcium metabolism Status: Acute Plan: -Continue thiosulfate per nephrology (9) Tobacco abuse ICD Codes: Z72.0 - Tobacco use Status: Chronic Plan: -Nicotine patch 7 mg (10) Physical deconditioning ICD Codes: R53.81 - Other malaise Status: Chronic Plan: -PT consulted to assist with ambulation and exercises (11) Chronic Medical Problems Status: Chronic Plan: Diabetic neuropathy: Holding gabapentin 400 mg by mouth 3 times a day due to recent altered mental status. Will resume this medication slowly Hyperlipidemia: Continue Atorvastin, Pravastatin Anxiety/Depression: Continue sertraline 100 mg by mouth daily, holding trazodone 50 mg by mouth at bedtime due to recent altered mental status. Will resume this medication slowly (12) Hyperphosphatemia ICD Codes: E83.39 - Other disorders of phosphorus metabolism Status: Resolved Plan: -Restarted Renvela 3200mg TID on 06/20 -Follow Phos (13) FEN/DVT PPX/GI PPX/Nursing Orders Plan: Fluids: Oral fluids only, on hemodialysis Electrolytes: Will monitor and replace as needed Nutrition: Renal diet DVT Prophylaxis: Unilateral SCDs, Eliquis 2.5 mg by mouth twice a day PRN Medications Zofran 4 mg IV push every 6 hours when necessary nausea vomiting Holding Percocet 325-5 mg 1 tab by mouth every 6 hours when necessary pain 1-5 Holding Percocet 325-10 mg 1 tab by mouth every 6 hours when necessary pain 6-10 Holding Morphine 4 mg IV every 3 hours when necessary breakthrough pain -Vitals Q4h -Monitor I's and O's -Fall precautions -Seizure precautions/fall precautions -media monitor with telemetry with continuous vital signs -Activity OOB with assistance -PT to assist with ambulation -Case management consult to assist with discharge disposition (Jaylan Grey MD R1) Problem Qualifiers (1) Hypertension: Qualified Codes: I10 - Essential (primary) hypertension (2) Diabetes: Jaylan Grey MD R1 Jun 26, 2017 13:13 Irene Davis MD Jul 01, 2017 16:38
[2017-06-26] MEDS: EPOETIN ALFA 10,000 UNITS/ML VIAL IV PUSH PRN (13:44)
--- NOTE | 2017-06-26 13:59 | HHI.NPPN ---
Subjective History of Present Illness Patient is a 47-year-old the female with history of end-stage renal disease, diabetes, blindness, peripheral vascular disease, calciphylaxis, ischemic left foot, previous right BKA who has certainly admitted with the chest pain she's described the pain in the left side radiating to his left shoulder, patient has similar complaints a few weeks ago, and was discharged after workup She goes to dialysis on Saturday, Saturday and Saturday Additional Remarks doing better Review of Systems Gastrointestinal Gastrointestinal: Abdominal Pain Objective Data Data 06/26/17 06/27/17 19:00 07:00 Output Total 3000 ml Balance -3000 ml Hemodialysis 3000 ml Vital Signs Date Time Temp Pulse Resp B/P (MAP) Pulse Ox O2 Delivery O2 Flow Rate FiO2 06/26/17 08:00 98.1 66 16 115/57 (76) 95 06/26/17 04:00 97.6 68 18 125/51 (75) 92 06/26/17 04:00 96 Room Air 21 06/26/17 00:00 96 Room Air 21 06/26/17 00:00 97.6 65 16 116/46 (69) 92 06/25/17 20:00 96 Room Air 21 06/25/17 20:00 98.0 70 16 137/60 (85) 93 06/25/17 16:45 98.0 67 18 98 06/25/17 16:00 97.8 66 18 116/53 (74) 93 -: 06/26/17 0600 06/26/17 0600 Physical Exam General Appearance: Well Developed, Well Nourished Neck Neck Exam: Neck Supple Pulmonary Resp Exam: Clear Bilaterally, Breath Sounds Equal Cardiology CV Exam: Regular Gastrointestinal/Abdomen GI Exam: Soft, Non-Tender, Bowel Sounds Present Extremeties Extremities Exam: Trace Edema Extremeties Remarks ischemic l foot Assessment/Plan Problem List: (1) ESRD (end stage renal disease) on dialysis ICD Codes: N18.6 - End stage renal disease; Z99.2 - Dependence on renal dialysis Status: Chronic Plan: HD MWF Hemodialysis proceedings noted seen at dialysis 5 L off getting Vanco/Ceftriaxone fluid Enterobacter/Propionibacterium alert responsive doing well drain in place (2) Hyperkalemia ICD Codes: E87.5 - Hyperkalemia Status: Acute Plan: Hemodialysis planned (3) Calciphylaxis ICD Codes: E83.59 - Other disorders of calcium metabolism Status: Acute Plan: Continue with sodium thiosulfate (4) Peripheral vascular disease ICD Codes: I73.9 - Peripheral vascular disease, unspecified Status: Acute Plan: Had previous procedures done (5) Diabetes ICD Codes: E11.9 - Type 2 diabetes mellitus without complications Status: Chronic Plan: Monitor blood glucose (6) Hypertension ICD Codes: I10 - Essential (primary) hypertension Status: Chronic Plan: Continue to monitor blood pressure (7) Chest pain ICD Codes: R07.9 - Chest pain, unspecified Status: Acute Plan: as above follow VQ scan Problem Qualifiers (1) Diabetes: (2) Hypertension: Qualified Codes: I10 - Essential (primary) hypertension (3) Chest pain: Qualified Codes: R07.9 - Chest pain, unspecified Gerri Gilbert MD Jun 26, 2017 13:59
[2017-06-26] MEDS: cefTRIAXone INJ 2,000 MG in SODIUM CHLORIDE 0.9% INJ 100 ML IV SCH (14:00)
--- NOTE | 2017-06-26 14:32 | HHI.IDPN ---
Subjective Subjective Remarks 47 y/o female with ESRD, on HD MWF, on Rx for Enterococcal and Kleb sepsis, being Rxd for possible endocarditis, found to have splenic infarct during last admission. Rx supposed to toña completed this month. Readmitted for CP and L shoulder pain. Cardiac work-up negative. Found now to have splenic abscess. has been afebrile. WBC normal. BC negative Notes reviewed D/W RN about IV Vanco dose today Temps ok HD today Output from drain 20 ml last 24 hours C/S from the drain with Propionobacterium and Enterobacter Has percutaneous drainage of splenic abscess - not a lot of output C/O pain at site Antibiotics Vanco Rocephin Lines PIV Past Medical History ESRD, on dialysis Saturday and Saturday Hypertension CAD Hyperlipidemia Diabetes Hepatitis C Legally blind Prior miscarriage PVD Calciphylaxis Past Surgical History Cholecystectomy R UE AV fistula Right nephrectomy Dental extraction Tonsillectomy R BKA Allergies: Coded Allergies: codeine (Verified Allergy, Severe, HYPERACTIVITY &ITCH, 06/17/17) iodine (Verified Allergy, Severe, TOPICAL/ITCH, 06/17/17) potassium iodide (Verified Allergy, Severe, TOPICAL/ITCH, 06/17/17) povidone-iodine (Verified Allergy, Severe, TOPICAL/ITCH, 06/17/17) sodium iodide (Verified Allergy, Severe, TOPICAL/ITCH, 06/17/17) sodium iodide (Verified Allergy, Severe, TOPICAL/ITCH, 06/17/17) iohexol (Verified Allergy, Intermediate, HIVES, 06/17/17) Pork/Porcine Containing Products (Verified Allergy, Unknown, 06/17/17) penicillin G (Verified Allergy, Unknown, 06/17/17) Objective . Vital Signs Date Time Temp Pulse Resp B/P (MAP) Pulse Ox O2 Delivery O2 Flow Rate FiO2 06/26/17 08:00 98.1 66 16 115/57 (76) 95 06/26/17 04:00 97.6 68 18 125/51 (75) 92 06/26/17 04:00 96 Room Air 21 06/26/17 00:00 96 Room Air 21 06/26/17 00:00 97.6 65 16 116/46 (69) 92 06/25/17 20:00 96 Room Air 21 06/25/17 20:00 98.0 70 16 137/60 (85) 93 06/25/17 16:45 98.0 67 18 98 06/25/17 16:00 97.8 66 18 116/53 (74) 93 06/26/17 06/26/17 06/27/17 15:00 23:00 07:00 Output Total 3000 ml Balance -3000 ml Hemodialysis 3000 ml . Laboratory Tests Test 06/25/17 06:09 06/26/17 06:00 White Blood Count 9.2 TH/MM3 10.0 TH/MM3 Red Blood Count 3.19 MIL/MM3 3.14 MIL/MM3 Hemoglobin 10.0 GM/DL 9.7 GM/DL Hematocrit 30.2 % 29.4 % Mean Corpuscular Volume 94.5 FL 93.6 FL Mean Corpuscular Hemoglobin 31.3 PG 30.8 PG Mean Corpuscular Hemoglobin Concent 33.1 % 32.9 % Red Cell Distribution Width 16.8 % 17.0 % Platelet Count 310 TH/MM3 330 TH/MM3 Mean Platelet Volume 8.0 FL 8.1 FL Neutrophils (%) (Auto) 75.6 % Lymphocytes (%) (Auto) 9.2 % Monocytes (%) (Auto) 9.1 % Eosinophils (%) (Auto) 5.3 % Basophils (%) (Auto) 0.8 % Neutrophils # (Auto) 6.9 TH/MM3 Lymphocytes # (Auto) 0.8 TH/MM3 Monocytes # (Auto) 0.8 TH/MM3 Eosinophils # (Auto) 0.5 TH/MM3 Basophils # (Auto) 0.1 TH/MM3 CBC Comment DIFF FINAL Differential Comment Laboratory Tests Test 06/25/17 06:09 06/26/17 06:00 Blood Urea Nitrogen 42 MG/DL 57 MG/DL Creatinine 6.09 MG/DL 7.52 MG/DL Random Glucose 109 MG/DL 108 MG/DL Calcium Level 9.4 MG/DL 9.7 MG/DL Sodium Level 136 MEQ/L 130 MEQ/L Potassium Level 4.3 MEQ/L 4.5 MEQ/L Chloride Level 95 MEQ/L 90 MEQ/L Carbon Dioxide Level 24.0 MEQ/L 25.0 MEQ/L Anion Gap 17 MEQ/L 15 MEQ/L Estimat Glomerular Filtration Rate 7 ML/MIN 6 ML/MIN Imaging RADIOLOGY STUDIES/FILMS REVIEWED Abscess Drainage CT 06/20/17 0000 Signed Impressions: Service Date/Time: June 10:20 - CONCLUSION: Uncomplicated CT guided drainage of the left upper quadrant perisplenic fluid collection. Samples were saved and sent to lab for Gram stain and cultures. Abhijit De Los Santos MD Chest X-Ray 06/18/17 0600 Signed Impressions: Service Date/Time: Sunday, June 18, 2017 08:33 - CONCLUSION: 1. Linear airspace disease in the right middle lobe and lingula consistent with atelectasis. Differential considerations include aspiration in the appropriate clinical setting. Capo Liu MD Abdomen/Pelvis CT 06/18/17 0000 Signed Impressions: Service Date/Time: Monday, June 19, 2017 08:14 - CONCLUSION: 1. Interval development of air-containing fluid collection in the spleen measuring up to 6.9 x 3.0 cm in maximal dimension with subcapsular fluid in region of prior splenic infarction. This finding is concerning for splenic abscess. 2. Mild bibasilar ground glass opacities and platelike air space consolidation in the left lower lobe, likely atelectasis. 3. No significant aortic or mesenteric stenosis as questioned. 4. End-stage appearing kidneys. 5. Trace place pelvic free fluid. Findings were personally discussed with Dr. Johnston. Capo Liu MD Abdomen X-Ray 06/18/17 0000 Signed Impressions: Service Date/Time: Sunday, June 18, 2017 13:38 - CONCLUSION: 1. No acute abdominal abnormality is identified. There are no findings to indicate obstruction. 2. Severe renal artery vascular calcification. Abhijit De Los Santos MD Lung Scan-V Nuclear Medicine 06/17/17 0000 Signed Impressions: Service Date/Time: Saturday, June 17, 2017 16:03 - CONCLUSION: 1. Central trapping on the ventilatory images. Nonspecific but can be seen in COPD. 2. Otherwise, low probability scan for pulmonary embolus. Dennis Trimble MD Physical Exam GENERAL: awake and alert, not in respiratory distress. SKIN: Warm and dry. Has superficial round ulcers on face, with some crusting and some in her UE HEAD: Atraumatic. Normocephalic. No temporal wasting, or tenderness. EYES: Dibble conjunctiva. No petechia or hemorrhage. Pupils equal, round and reactive to light. Extraocular movements full and intact. No scleral icterus. No injection or drainage. EARS, NOSE AND THROAT: Nose without bleeding or purulent nasal discharge. No sinus tenderness. Mucous membranes pink and moist. No oral lesions noted. She is edentulous. NECK: Trachea midline. Supple and not tender, no meningeal signs CARDIOVASCULAR: Regular rate and rhythm. No murmurs, rubs or gallops heard RESPIRATORY: Clear to auscultation. Breath sounds equal bilaterally. No rales , wheezing or rhonchi ABDOMEN: Soft, nondistended, with diffuse abdominal tenderness, but no guarding or rebound. Bowel sounds present and normoactive. No organomegaly. EXTREMITIES: No clubbing, cyanosis, or edema. No joint effusion, has good ROM. No calf tenderness. Well perfused and warm. RUE AVF with no evidence of infection. S/P RBKA, well healed stump NEUROLOGICAL: Awake and alert. Cranial nerves grossly intact. Motor grossly within normal limits. PSYCHIATRIC: Normal affect, calm and cooperative. LINE: No evidence of infection Assessment & Plan Remarks IMPRESSION Enterococcal and Klebsiella bacteremia, on Rx for possible endocarditis, with splenic infarct - MARILU no vegetation done during last admission Splenic abscess, developed while on Rx for bacteremia - C/S with different bacteria: Enterobacter and Propionobacterium ESRD, on HD MWF Hx IVDU, ?continued use of IVD Has skin lesions which according to patient is from calciphylaxis, ?popping or picking due to drugs RECOMMENDATION Continue IV Vancomycin - spoke with Floor RN to make sure she gets her IV Vanco today after her HD Continue Rocephin Monitor progress Will need follow-up CT A/P if drainage output continues to decrease D/W Carrie Johnson MD Jun 26, 2017 14:31
[2017-06-26] MEDS: MORPHINE SULFATE 15 MG CONTROLLED RELEASE TAB PO SCH ×2 (14:55→21:26)
[2017-06-26] MEDS: NICOTINE 7 MG/24 HR PATCH T-DERMAL SCH (14:57)
[2017-06-26] MEDS: SODIUM CHLORIDE 0.9% FLUSH 10 ML FLUSH IV FLUSH SCH ×2 (15:50→21:29)
[2017-06-26 16:00] VITALS: BP 128/58; PULSE 74; RESP 16; TEMP 98.2; O2SAT 95
[2017-06-26 16:20] VITALS: BP 122/53; PULSE 77; RESP 18; TEMP 98.2; O2SAT 96
[2017-06-26] MEDS ORDERED: traMADol HCL 50 MG TAB PO PRN (17:15)
[2017-06-26] MEDS: VANCOMYCIN INJ 1,000 MG in SODIUM CHLOR 0.9% 250 ML INJ 250 ML IV SCH (17:38)
--- NOTE | 2017-06-26 17:47 | RADRPT ---
EXAM DATE/TIME: 06/26/2017 17:11 [facility] COMPARISON: CT ASSISTED ABSCESS DRAIN, June 20, 2017, 10:20. INDICATIONS : Fluid collection around splenic drain. MEDICAL HISTORY : Hypercholesterolemia. Legally blind. Migraines. Coronary artery disease. HTN. Pneumonia. GERD. Ov aaron cysts. ESRF. UTI. Diabetes. Substance use. Anemia. MRSA. Anticoagulant therapy, Eliquis. SURGICAL HISTORY : Tonsillectomy. Cholecystectomy. Teeth extraction. Right oopherectomy. Dialysis. Right BKA. Blood tr ansfusions. ENCOUNTER: Initial ACUITY: 1 day PAIN SCORE: 6/10 LOCATION: Left back. AREA EVALUATED: Left lateral back. FINDINGS: Small fluid collection remains around the drain. CONCLUSION: Small fluid collection around the drain Vamsi Keenan MD FACR on June 26, 2017 at 17:45 Board Certified Radiologist. This report was verified electronically.
[2017-06-26 20:00] VITALS: BP 114/56; PULSE 71; PULSE 73; RESP 20; TEMP 98.4; O2SAT 94
[2017-06-26] MEDS: REMOVE OLD PATCH T-DERMAL SCH (21:00)
[2017-06-27] VITALS (7 sets, daily range): BP systolic 141–147; BP diastolic 50–65; PULSE 63–71; RESP 18–20; TEMP 97–98.3; O2SAT 92–98
[2017-06-27] MEDS: ACETAMINOPHEN 1000 MG/100 ML 100 ML IV SCH ×5 (00:09→22:50)
[2017-06-27] MEDS: INSULIN ASPART SUPPLEMENTAL SCALE SQ SCH ×4 (08:00→22:49)
[2017-06-27] MEDS: DOCUSATE SODIUM 50 MG/SENNA 8.6 MG TAB PO SCH ×3 (09:00→22:47)
[2017-06-27] MEDS ORDERED: ALTEPLASE RECOMBINANT 100 MG VIAL OTHER ONE (09:15)
--- NOTE | 2017-06-27 09:59 | HHI.FPPN ---
Subjective Remarks Ms Laguerre was in acute pain following HD yesterday. Her pain regimen was augmented with Tramadol and scheduled IV Tylenol in addition to IV morphine for breakthrough. This combination did adequately control the pain. Her drain site is painful today, but she is comfortable. Denies SOB, N/V/D, and DVT pain. (Jaylan Grey MD R1) Objective Vitals Vital Signs Date Time Temp Pulse Resp B/P (MAP) Pulse Ox O2 Delivery O2 Flow Rate FiO2 06/27/17 08:00 97.9 66 20 142/60 (87) 98 06/27/17 04:00 97.7 70 20 145/65 (91) 92 06/27/17 00:00 98.3 71 18 143/55 (84) 92 06/26/17 21:19 92 Room Air 06/26/17 20:00 73 06/26/17 20:00 98.4 71 20 114/56 (75) 94 06/26/17 16:20 98.2 77 18 122/53 (76) 96 06/26/17 16:00 98.2 74 16 128/58 (81) 95 I/O 06/26/17 06/26/17 06/26/17 06/27/17 06/27/17 06/27/17 07:00 15:00 23:00 07:00 15:00 23:00 Intake Total 100 ml 450 ml 360 ml Output Total 3000 ml 20 ml Balance 100 ml -3000 ml 450 ml 340 ml Intake Oral 360 ml IV Total 100 ml 450 ml Output Urine Total 0 ml Stool Total 0 ml Drainage Total 20 ml Hemodialysis 3000 ml (Jaylan Grey MD R1) Result Diagram: 06/26/17 0600 06/26/17 0600 Imaging Last 48 hours Impressions Soft Tissue Ultrasound 06/26/17 0000 Signed Impressions: Service Date/Time: Monday, June 26, 2017 17:11 - CONCLUSION: Small fluid collection around the drain Vamsi Keenan MD FACR Objective Remarks General: Sitting up in bed, happy to see us, but with back pain where the drain is inserted in upper left flank Skin: 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 poor dentition. Neck: Supple, no lymphadenopathy, no thyromegaly CV: RRR, no murmurs, rubs, or gallops, no edema. Lungs: CTAB, no wheezing, rales, or rhonchi. Abdomen: Soft, nontender in lower quadrants, but tender in upper RUQ near diaphragm, and LUQ and at drainage site; no guarding; normal BS. BACK: Spleen abscess drain in place at left lateral costal margin with fluctuance and swelling increased from previous day; however, no signs of cellulitis on skin around drain, no bruising or erythema; no guarding. Slow drainage of serosanguineous fluid Neuro: Alert and oriented, EOMI, PERRLA, CN intact. Procedures splenic abscess drainage by IR 06/20/17 Medications and IVs Current Medications Medications (Trade) Dose Ordered Sig/Jen Route Start Time Stop Time Status Last Admin Sodium Chloride 1,000 ml @ 0 mls/hr Q0M PRN OTHER 06/17/17 13:27 (Heparin Inj) 8,000 units UNSCH PRN IV FLUSH 06/17/17 13:30 Sodium Chloride 1,000 ml @ 200 mls/hr Q5H PRN IV 06/17/17 13:27 Sodium Chloride 1,000 ml @ 0 mls/hr Q0M PRN OTHER 06/17/17 13:27 (Mannitol Inj) 12.5 gm UNSCH PRN IV 06/17/17 13:30 Albumin Human 100 ml @ 60 mls/hr UNSCH PRN IV 06/17/17 13:30 06/26/17 11:55 (NS Flush) 5 ml UNSCH PRN IV FLUSH 06/17/17 13:30 (Heparin Inj) UNSCH PRN .XX 06/17/17 13:30 (Gentamicin (Dialysis) Inj) 20 mg UNSCH PRN OTHER 06/17/17 13:30 (Zofran Inj) 4 mg UNSCH PRN IV PUSH 06/17/17 13:30 (Nitrostat Sl) 0.4 mg UNSCH PRN SL 06/17/17 13:30 (Catapres) 0.1 mg UNSCH PRN PO 06/17/17 13:30 (Epogen Inj) 4,000 units UNSCH PRN IV PUSH 06/17/17 13:30 06/26/17 13:44 (Gelfoam 12 Mm/7 Mm Top) 1 foam UNSCH PRN TOP 06/17/17 13:30 06/19/17 10:43 Sodium Thiosulfate 02679 mg/Sterile Water 200 ml @ 150 mls/hr WITH DIALYSIS PRN IV 06/17/17 13:30 06/26/17 12:56 (NS Flush) 2 ml UNSCH PRN IV FLUSH 06/17/17 14:45 (NS Flush) 2 ml BID IV FLUSH 06/17/17 21:00 06/27/17 10:28 (Zofran Inj) 4 mg Q6H PRN IVP 06/17/17 18:00 (Narcan Inj) 0.4 mg UNSCH PRN IV PUSH 06/17/17 14:45 (Areli-Colace) 2 tab BID PO 06/17/17 21:00 06/26/17 21:25 (D50w (Vial) Inj) 50 ml UNSCH PRN IV PUSH 06/17/17 15:00 (Glucagon Inj) 1 mg UNSCH PRN OTHER 06/17/17 15:00 (NovoLOG SUPPLEMENTAL SCALE) 1 ACHS SLIDING SCALE SQ 06/17/17 17:00 06/26/17 21:25 (Coreg) 25 mg BID PO 06/17/17 21:00 06/27/17 10:28 (Vitamin D3) 5,000 units DAILY PO 06/18/17 09:00 06/27/17 10:26 (Zoloft) 100 mg DAILY PO 06/18/17 09:00 06/27/17 10:25 (Nephrocaps) 1 cap DAILY PO 06/18/17 09:00 06/27/17 10:26 (Protonix) 40 mg DAILY PO 06/17/17 15:00 06/27/17 10:26 (Habitrol 7 Mg Patch.24 Hr) 1 patch DAILY T-DERMAL 06/18/17 09:00 06/27/17 10:30 Miscellaneous Information 1 HS T-DERMAL 06/17/17 21:00 06/26/17 21:00 (Desyrel) 50 mg HS PO 06/19/17 21:00 Future Hold 06/20/17 21:24 (Miralax) 17 gm DAILY PO 06/20/17 09:00 06/27/17 10:28 (Levemir Inj) 5 units BID SQ 06/20/17 21:00 06/27/17 10:42 (Renvela) 3,200 mg TIDPC PO 06/20/17 18:30 06/27/17 13:29 Levetriacetam 500 mg/Sodium Chloride 105 ml @ 420 mls/hr DAILY IV 06/23/17 09:00 06/27/17 10:37 Pharmacy Profile Note 0 ml @ 0 mls/hr UNSCH OTHER 06/22/17 13:00 (Plavix) 75 mg DAILY PO 06/23/17 09:00 06/27/17 10:26 (Eliquis) 2.5 mg BID PO 06/22/17 21:00 06/27/17 10:42 Acetaminophen 100 ml @ 400 mls/hr Q6H IV 06/23/17 12:45 06/27/17 13:30 (Norvasc) 5 mg DAILY PO 06/24/17 09:00 06/27/17 10:26 (Prinivil) 20 mg DAILY PO 06/24/17 09:00 06/27/17 10:25 Vancomycin HCl 1000 mg/Sodium Chloride 250 ml @ 250 mls/hr MoWeFr@1700 IV 06/24/17 17:00 06/26/17 17:38 Ceftriaxone Sodium 2000 mg/ Sodium Chloride 100 ml @ 200 mls/hr Q24H IV 06/24/17 14:00 06/27/17 13:32 (Lactinex) 1 tab Q12HR PO 06/26/17 09:00 06/27/17 10:27 (Oramorph Sr) 15 mg Q12HR PO 06/26/17 12:15 06/27/17 10:27 Levetriacetam 250 mg/Sodium Chloride 102.5 ml @ 410 mls/hr MoWeFr@2100 IV 06/28/17 21:00 (Ultram) 50 mg Q12H PRN PO 06/26/17 17:15 06/26/17 21:25 (Jaylan Grey MD R1) Urinary Catheter: No (Jaylan Grey MD R1) Vascular Central Line Catheter: No (Jaylan Grey MD R1) A/P Assessment and Plan 47-year-old female with a past medical history of end-stage renal disease on HD MWF, diabetes, hypertension, PAD, recently discharged from the hospital on 03 June where she was found to have an acute splenic infarction, presented with a one-day history of chest pain and left shoulder pain as well as elevated potassium and creatinine. She was admitted to the hospital for dialysis and ACS rule out and was found to have a splenic abscess identified on CTA performed on 06/19/17. Splenic abscess drained placed by IR on 06/21. ID is assisting with antibiotic management. She is currently on Rocephin IV and Vancomycin IV. Pt with increased pain at drain site yesterday with soft tissue US finding a small fluid collection described by radiology as being roughly 1cm x 1cm and recommend covering with current abx vs I&D at this time Seen and examined with Dr Johnston; discussed with Dr Davis Discharge Planning Pending management of splenic abscess, stable vital signs, safe discharge. (Jaylan Grey MD R1) Attending Attestation Patient seen and examined. Case reviewed and discussed Agree with plan of care as discussed with me and documented in the resident note. (Irene Davis MD) Problem List: (1) Splenic abscess ICD Codes: D73.3 - Abscess of spleen Status: Acute Plan: CTA performed on 06/19 showed interval development of air-containing fluid collection in the spleen measuring up to 6.9 x 3.0 cm in maximal dimension with subcapsular fluid in region of prior splenic infarction, concerning for splenic abscess. No significant aortic or mesenteric stenoses identified. Interventional radiology drained abscess 06/20/17--serosanguineous drainage noted today. Cultures of drained abscess fluid growing propionibacterium and collins-sensitive Enterobacter cloacae. -ID consulted - continue vancomycin for previously diagnosed bacteremia -Continue Rocephin IV started on 06/24/17 -Blood cultures show no growth in 4 days -Tylenol 1000mg IV q6h scheduled for pain -Oramorph 15mg PO q12hr -Tramadol 50mg pain >5 -Waiting on IR to determine when to remove drain -Soft tissue US around splenic abscess drain shows a small collection of fluid, approx 1cm x 1cm; will manage with abx vs repeat drainage/I&D (2) Altered mental status ICD Codes: R41.82 - Altered mental status, unspecified Status: Resolved Plan: Resolved. Acute altered mental status on 06/22/17, essentially benign neuro exam otherwise. Stat EEG performed that day showing triphasic waves, possibly metabolic encephalopathy. - Much alert today and fully oriented - Will continue Keppra due to good response, currently on IV and will transition to PO - Per pharmacy, will add additional Keppra doses following HD on MWF - She would most likely need to be on Keppra as an outpatient until she follows up with her PCP or neurology - Seizure and fall precautions (3) ESRD (end stage renal disease) on dialysis ICD Codes: N18.6 - End stage renal disease; Z99.2 - Dependence on renal dialysis Status: Chronic Plan: -Hemodialysis MWF per nephrology recommendations, Dr. Gilbert on board -Avoid nephrotoxic agents (4) Hyperkalemia ICD Codes: E87.5 - Hyperkalemia Status: Acute Plan: -Fluctuating levels of potassium -Dialysis as above (5) Hypertension ICD Codes: I10 - Essential (primary) hypertension Status: Chronic Plan: -Continue home medications: Amlodipine, Coreg, and lisinopril with hold parameters for low blood pressure and/or bradycardia (6) Diabetes ICD Codes: E11.9 - Type 2 diabetes mellitus without complications Status: Chronic Plan: -Levemir 5 units BID -Continue glucose monitoring with SSI - does not have much SSI requirement (7) Peripheral vascular disease ICD Codes: I73.9 - Peripheral vascular disease, unspecified Status: Acute Plan: - Continue clopidogrel 75 mg PO daily (8) Calciphylaxis ICD Codes: E83.59 - Other disorders of calcium metabolism Status: Acute Plan: -Continue thiosulfate per nephrology (9) Tobacco abuse ICD Codes: Z72.0 - Tobacco use Status: Chronic Plan: -Nicotine patch 7 mg (10) Physical deconditioning ICD Codes: R53.81 - Other malaise Status: Chronic Plan: -PT consulted to assist with ambulation and exercises (11) Chronic Medical Problems Status: Chronic Plan: Diabetic neuropathy: Holding gabapentin 400 mg by mouth 3 times a day due to recent altered mental status. Will resume this medication slowly Hyperlipidemia: Continue Atorvastin, Pravastatin Anxiety/Depression: Continue sertraline 100 mg by mouth daily, holding trazodone 50 mg by mouth at bedtime due to recent altered mental status. Will resume this medication slowly (12) Hyperphosphatemia ICD Codes: E83.39 - Other disorders of phosphorus metabolism Status: Resolved Plan: -Restarted Renvela 3200mg TID on 06/20 -Follow Phos (13) FEN/DVT PPX/GI PPX/Nursing Orders Plan: Fluids: Oral fluids only, on hemodialysis Electrolytes: Will monitor and replace as needed Nutrition: Renal diet DVT Prophylaxis: Unilateral SCDs, Eliquis 2.5 mg by mouth twice a day PRN Medications Zofran 4 mg IV push every 6 hours when necessary nausea vomiting Oramorph 15mg q12h for pain Tylenol 1g IV q6h for pain Holding Morphine 4 mg IV every 3 hours when necessary breakthrough pain -Vitals Q4h -Monitor I's and O's -Fall precautions -Seizure precautions/fall precautions -cctv technician with telemetry with continuous vital signs -Activity OOB with assistance -PT to assist with ambulation -Case management consult to assist with discharge disposition (Jaylan Grey MD R1) Problem Qualifiers (1) Hypertension: Qualified Codes: I10 - Essential (primary) hypertension (2) Diabetes: Jaylan Grey MD R1 Jun 27, 2017 09:59 Irene Davis MD Jul 01, 2017 16:37
[2017-06-27] MEDS: LISINOPRIL 20 MG TAB PO SCH (10:25)
[2017-06-27] MEDS: SERTRALINE HCL 100 MG TAB PO SCH (10:25)
[2017-06-27] MEDS: CHOLECALCIFEROL (VIT D3) 5000 UNIT CAP PO SCH (10:26)
[2017-06-27] MEDS: PANTOPRAZOLE SOD 40 MG DELAYED RELEASE TAB PO SCH (10:26)
[2017-06-27] MEDS: VITAMIN B CMPLX/VITC/FOLIC AC CAP PO SCH (10:26)
[2017-06-27] MEDS: CLOPIDOGREL 75 MG TAB PO SCH (10:26)
[2017-06-27] MEDS: LACTOBACILLUS ACIDOPHILUS TAB PO SCH ×2 (10:27→22:48)
[2017-06-27] MEDS: MORPHINE SULFATE 15 MG CONTROLLED RELEASE TAB PO SCH ×2 (10:27→22:48)
[2017-06-27] MEDS: SODIUM CHLORIDE 0.9% FLUSH 10 ML FLUSH IV FLUSH SCH ×2 (10:28→22:50)
[2017-06-27] MEDS: POLYETHYLENE GLYCOL 17 GM PKG PO SCH (10:28)
[2017-06-27] MEDS: CARVEDILOL 12.5 MG TAB PO SCH ×2 (10:28→22:48)
[2017-06-27] MEDS: SEVELAMER CARBONATE 800 MG TAB PO SCH ×3 (10:29→17:49)
[2017-06-27] MEDS: NICOTINE 7 MG/24 HR PATCH T-DERMAL SCH (10:30)
[2017-06-27] MEDS: levETIRAcetam INJ 500 MG in SODIUM CHLORIDE 0.9% INJ 100 ML IV SCH (10:37)
[2017-06-27] MEDS: INSULIN DETEMIR 100 UNITS/ML VIAL SQ SCH ×2 (10:42→22:48)
[2017-06-27] MEDS: APIXABAN 2.5 MG TABLET PO SCH ×2 (10:42→22:47)
[2017-06-27 10:59] LABS: AUTOMATED NEUTROPHIL # 7.7 TH/MM3 (1.8-7.7); BASOPHIL # 0.1 TH/MM3 (0-0.2); BASOPHIL % 0.7 % (0.0-2.0); EOSINOPHIL # 0.4 TH/MM3 (0-0.4); EOSINOPHIL % 3.6 % (0.0-4.0); HEMATOCRIT 31.8 % (35.0-46.0); HEMO FLAGS DIFF FINAL; LYMPH % 9.7 % (9.0-44.0); MEAN CELL VOLUME 93.9 FL (80.0-100.0); MEAN CORPUSCULAR HEMOGLOBIN 30.5 PG (27.0-34.0); MEAN CORPUSCULAR HGB CONC 32.5 % (32.0-36.0); MONO % 7.8 % (0.0-8.0); NEUT % 78.2 % (16.0-70.0); PLATELET COUNT 293 TH/MM3 (150-450); RED BLOOD COUNT 3.38 MIL/MM3 (4.00-5.30); RED CELL DISTRIBUTION WIDTH 16.9 % (11.6-17.2); WHITE BLOOD COUNT 9.8 TH/MM3 (4.0-11.0)
[2017-06-27 11:29] LABS: BICARBONATE 29.4 MEQ/L (21.0-32.0); POTASSIUM 4.3 MEQ/L (3.5-5.1)
[2017-06-27] MEDS: cefTRIAXone INJ 2,000 MG in SODIUM CHLORIDE 0.9% INJ 100 ML IV SCH (13:32)
--- NOTE | 2017-06-27 14:05 | HHI.NPPN ---
Subjective History of Present Illness Patient is a 47-year-old the female with history of end-stage renal disease, diabetes, blindness, peripheral vascular disease, calciphylaxis, ischemic left foot, previous right BKA who has certainly admitted with the chest pain she's described the pain in the left side radiating to his left shoulder, patient has similar complaints a few weeks ago, and was discharged after workup She goes to dialysis on Saturday, Saturday and Saturday Additional Remarks doing better Review of Systems Gastrointestinal Gastrointestinal: Abdominal Pain Objective Data Data 06/27/17 06/28/17 19:00 07:00 Output Total 20 ml Balance -20 ml Drainage Total 20 ml Vital Signs Date Time Temp Pulse Resp B/P (MAP) Pulse Ox O2 Delivery O2 Flow Rate FiO2 06/27/17 12:00 97.9 66 18 141/50 (80) 92 06/27/17 08:00 97.9 66 20 142/60 (87) 98 06/27/17 04:00 97.7 70 20 145/65 (91) 92 06/27/17 00:00 98.3 71 18 143/55 (84) 92 06/26/17 21:19 92 Room Air 06/26/17 20:00 73 06/26/17 20:00 98.4 71 20 114/56 (75) 94 06/26/17 16:20 98.2 77 18 122/53 (76) 96 06/26/17 16:00 98.2 74 16 128/58 (81) 95 -: 06/27/17 1001 06/27/17 1001 Physical Exam General Appearance: Well Developed, Well Nourished Neck Neck Exam: Neck Supple Pulmonary Resp Exam: Clear Bilaterally, Breath Sounds Equal Cardiology CV Exam: Regular Gastrointestinal/Abdomen GI Exam: Soft, Non-Tender, Bowel Sounds Present Extremeties Extremities Exam: Trace Edema Extremeties Remarks ischemic l foot Assessment/Plan Problem List: (1) ESRD (end stage renal disease) on dialysis ICD Codes: N18.6 - End stage renal disease; Z99.2 - Dependence on renal dialysis Status: Chronic Plan: HD MWF Hemodialysis next tomorrow getting Vanco/Ceftriaxone fluid Enterobacter/Propionibacterium alert responsive doing well (2) Hyperkalemia ICD Codes: E87.5 - Hyperkalemia Status: Acute Plan: Hemodialysis planned (3) Calciphylaxis ICD Codes: E83.59 - Other disorders of calcium metabolism Status: Acute Plan: Continue with sodium thiosulfate (4) Peripheral vascular disease ICD Codes: I73.9 - Peripheral vascular disease, unspecified Status: Acute Plan: Had previous procedures done (5) Diabetes ICD Codes: E11.9 - Type 2 diabetes mellitus without complications Status: Chronic Plan: Monitor blood glucose (6) Hypertension ICD Codes: I10 - Essential (primary) hypertension Status: Chronic Plan: Continue to monitor blood pressure (7) Chest pain ICD Codes: R07.9 - Chest pain, unspecified Status: Acute Plan: as above follow VQ scan Problem Qualifiers (1) Diabetes: (2) Hypertension: Qualified Codes: I10 - Essential (primary) hypertension (3) Chest pain: Qualified Codes: R07.9 - Chest pain, unspecified Gerri Gilbert MD Jun 27, 2017 14:05
--- NOTE | 2017-06-27 19:19 | HHI.PR ---
Review/Management Diagnosis Metabolic encephalopathy Plan stop keppra--no evidence for sz on eeg Diagnosis/Plan: Subjective Subjective Comments No acute events reported Has been more alert and less confused. Active Medications Current Medications Medications (Trade) Dose Ordered Sig/Jen Route Start Time Stop Time Status Last Admin Sodium Chloride 1,000 ml @ 0 mls/hr Q0M PRN OTHER 06/17/17 13:27 (Heparin Inj) 8,000 units UNSCH PRN IV FLUSH 06/17/17 13:30 Sodium Chloride 1,000 ml @ 200 mls/hr Q5H PRN IV 06/17/17 13:27 Sodium Chloride 1,000 ml @ 0 mls/hr Q0M PRN OTHER 06/17/17 13:27 (Mannitol Inj) 12.5 gm UNSCH PRN IV 06/17/17 13:30 Albumin Human 100 ml @ 60 mls/hr UNSCH PRN IV 06/17/17 13:30 06/26/17 11:55 (NS Flush) 5 ml UNSCH PRN IV FLUSH 06/17/17 13:30 (Heparin Inj) UNSCH PRN .XX 06/17/17 13:30 (Gentamicin (Dialysis) Inj) 20 mg UNSCH PRN OTHER 06/17/17 13:30 (Zofran Inj) 4 mg UNSCH PRN IV PUSH 06/17/17 13:30 (Nitrostat Sl) 0.4 mg UNSCH PRN SL 06/17/17 13:30 (Catapres) 0.1 mg UNSCH PRN PO 06/17/17 13:30 (Epogen Inj) 4,000 units UNSCH PRN IV PUSH 06/17/17 13:30 06/26/17 13:44 (Gelfoam 12 Mm/7 Mm Top) 1 foam UNSCH PRN TOP 06/17/17 13:30 06/19/17 10:43 Sodium Thiosulfate 67257 mg/Sterile Water 200 ml @ 150 mls/hr WITH DIALYSIS PRN IV 06/17/17 13:30 06/26/17 12:56 (NS Flush) 2 ml UNSCH PRN IV FLUSH 06/17/17 14:45 (NS Flush) 2 ml BID IV FLUSH 06/17/17 21:00 06/27/17 10:28 (Zofran Inj) 4 mg Q6H PRN IVP 06/17/17 18:00 (Narcan Inj) 0.4 mg UNSCH PRN IV PUSH 06/17/17 14:45 (Areli-Colace) 2 tab BID PO 06/17/17 21:00 06/26/17 21:25 (D50w (Vial) Inj) 50 ml UNSCH PRN IV PUSH 06/17/17 15:00 (Glucagon Inj) 1 mg UNSCH PRN OTHER 06/17/17 15:00 (NovoLOG SUPPLEMENTAL SCALE) 1 ACHS SLIDING SCALE SQ 06/17/17 17:00 06/27/17 17:50 (Coreg) 25 mg BID PO 06/17/17 21:00 06/27/17 10:28 (Vitamin D3) 5,000 units DAILY PO 06/18/17 09:00 06/27/17 10:26 (Zoloft) 100 mg DAILY PO 06/18/17 09:00 06/27/17 10:25 (Nephrocaps) 1 cap DAILY PO 06/18/17 09:00 06/27/17 10:26 (Protonix) 40 mg DAILY PO 06/17/17 15:00 06/27/17 10:26 (Habitrol 7 Mg Patch.24 Hr) 1 patch DAILY T-DERMAL 06/18/17 09:00 06/27/17 10:30 Miscellaneous Information 1 HS T-DERMAL 06/17/17 21:00 06/26/17 21:00 (Desyrel) 50 mg HS PO 06/19/17 21:00 Future Hold 06/20/17 21:24 (Miralax) 17 gm DAILY PO 06/20/17 09:00 06/27/17 10:28 (Levemir Inj) 5 units BID SQ 06/20/17 21:00 06/27/17 10:42 (Renvela) 3,200 mg TIDPC PO 06/20/17 18:30 06/27/17 17:49 Levetriacetam 500 mg/Sodium Chloride 105 ml @ 420 mls/hr DAILY IV 06/23/17 09:00 06/27/17 10:37 Pharmacy Profile Note 0 ml @ 0 mls/hr UNSCH OTHER 06/22/17 13:00 (Plavix) 75 mg DAILY PO 06/23/17 09:00 06/27/17 10:26 (Eliquis) 2.5 mg BID PO 06/22/17 21:00 06/27/17 10:42 Acetaminophen 100 ml @ 400 mls/hr Q6H IV 06/23/17 12:45 06/27/17 17:50 (Norvasc) 5 mg DAILY PO 06/24/17 09:00 06/27/17 10:26 (Prinivil) 20 mg DAILY PO 06/24/17 09:00 06/27/17 10:25 Vancomycin HCl 1000 mg/Sodium Chloride 250 ml @ 250 mls/hr [id number]@1700 IV 06/24/17 17:00 06/26/17 17:38 Ceftriaxone Sodium 2000 mg/ Sodium Chloride 100 ml @ 200 mls/hr Q24H IV 06/24/17 14:00 06/27/17 13:32 (Lactinex) 1 tab Q12HR PO 06/26/17 09:00 06/27/17 10:27 (Oramorph Sr) 15 mg Q12HR PO 06/26/17 12:15 06/27/17 10:27 Levetriacetam 250 mg/Sodium Chloride 102.5 ml @ 410 mls/hr MoWeFr@2100 IV 06/28/17 21:00 Allergies Allergies Coded Allergies codeine (Verified Allergy, Severe, HYPERACTIVITY &ITCH, 06/17/17) iodine (Verified Allergy, Severe, TOPICAL/ITCH, 06/17/17) potassium iodide (Verified Allergy, Severe, TOPICAL/ITCH, 06/17/17) povidone-iodine (Verified Allergy, Severe, TOPICAL/ITCH, 06/17/17) sodium iodide (Verified Allergy, Severe, TOPICAL/ITCH, 06/17/17) sodium iodide (Verified Allergy, Severe, TOPICAL/ITCH, 06/17/17) iohexol (Verified Allergy, Intermediate, HIVES, 06/17/17) Pork/Porcine Containing Products (Verified Allergy, Unknown, 06/17/17) penicillin G (Verified Allergy, Unknown, 06/17/17) Exam I&O / VS 06/27/17 06/27/17 06/28/17 15:00 23:00 07:00 Intake Total 305 ml 720 ml Output Total 20 ml Balance 285 ml 720 ml Intake Oral 720 ml IV Total 305 ml Drainage Total 20 ml # Voids 0 # Bowel Movements 1 Vital Signs Date Time Temp Pulse Resp B/P (MAP) Pulse Ox O2 Delivery O2 Flow Rate FiO2 06/27/17 16:00 97.0 63 18 146/63 (90) 97 06/27/17 12:00 97.9 66 18 141/50 (80) 92 06/27/17 08:45 Room Air 06/27/17 08:00 97.9 66 20 142/60 (87) 98 06/27/17 04:00 97.7 70 20 145/65 (91) 92 06/27/17 00:00 98.3 71 18 143/55 (84) 92 06/26/17 21:19 92 Room Air 06/26/17 20:00 73 06/26/17 20:00 98.4 71 20 114/56 (75) 94 Exam Comments alert, oriented times three speech normal CN intact Motor--no focal deficits Objective Micro and Labs Laboratory Tests Test 06/27/17 10:01 White Blood Count 9.8 Red Blood Count 3.38 Hemoglobin 10.3 Hematocrit 31.8 Mean Corpuscular Volume 93.9 Mean Corpuscular Hemoglobin 30.5 Mean Corpuscular Hemoglobin Concent 32.5 Red Cell Distribution Width 16.9 Platelet Count 293 Mean Platelet Volume 7.9 Neutrophils (%) (Auto) 78.2 Lymphocytes (%) (Auto) 9.7 Monocytes (%) (Auto) 7.8 Eosinophils (%) (Auto) 3.6 Basophils (%) (Auto) 0.7 Neutrophils # (Auto) 7.7 Lymphocytes # (Auto) 1.0 Monocytes # (Auto) 0.8 Eosinophils # (Auto) 0.4 Basophils # (Auto) 0.1 CBC Comment DIFF FINAL Differential Comment Blood Urea Nitrogen 34 Creatinine 5.80 Random Glucose 133 Calcium Level 9.6 Sodium Level 136 Potassium Level 4.3 Chloride Level 92 Carbon Dioxide Level 29.4 Anion Gap 15 Estimat Glomerular Filtration Rate 8 Date/Time Source Procedure Growth Status 06/21/17 18:07 Blood Peripheral Aerobic Blood Culture - Final NO GROWTH IN 5 DAYS Complete 06/21/17 18:07 Blood Peripheral Anaerobic Blood Culture - Final NO GROWTH IN 5 DAYS Complete 06/20/17 11:04 Fluid Other Gram Stain - Final Complete 06/20/17 11:04 Body Fluid Culture - Final Propionibacterium Species Enterobacter Cloacae Complete 06/20/17 11:04 Abscess Abdomen Fungal Smear - Final NO FUNGAL ELEMENTS SEEN. Resulted 06/20/17 11:04 Abscess Abdomen Fungal Culture - Preliminary NO GROWTH IN 1 WEEK Resulted Andrew Collins PhD Jun 27, 2017 19:19
[2017-06-27] MEDS: REMOVE OLD PATCH T-DERMAL SCH (21:00)
[2017-06-28 00:43] VITALS: BP 138/55; PULSE 68; RESP 18; TEMP 98.1; O2SAT 98
[2017-06-28 04:00] VITALS: BP 129/60; PULSE 66; RESP 18; TEMP 97.9; O2SAT 94
[2017-06-28 04:33] LABS: HEMATOCRIT 30.4 % (35.0-46.0); MEAN CELL VOLUME 93.7 FL (80.0-100.0); PLATELET COUNT 300 TH/MM3 (150-450); RED BLOOD COUNT 3.24 MIL/MM3 (4.00-5.30); RED CELL DISTRIBUTION WIDTH 16.8 % (11.6-17.2); REVIEW FLAG FINAL; WHITE BLOOD COUNT 12.1 TH/MM3 (4.0-11.0)
[2017-06-28 04:44] LABS: INTERNATIONAL NORMALIZED RATIO 1.2 RATIO; PROTHROMBIN TIME - PATIENT 13.5 SEC (9.8-11.6)
[2017-06-28 04:49] LABS: BICARBONATE 27.7 MEQ/L (21.0-32.0); POTASSIUM 4.6 MEQ/L (3.5-5.1)
[2017-06-28] MEDS: ACETAMINOPHEN 1000 MG/100 ML 100 ML IV SCH ×3 (05:19→18:30)
[2017-06-28 08:00] VITALS: BP 122/58; PULSE 64; RESP 18; TEMP 97.7; O2SAT 95
[2017-06-28] MEDS: INSULIN ASPART SUPPLEMENTAL SCALE SQ SCH ×4 (08:00→21:38)
[2017-06-28] MEDS: DOCUSATE SODIUM 50 MG/SENNA 8.6 MG TAB PO SCH ×2 (09:00→20:07)
[2017-06-28] MEDS: POLYETHYLENE GLYCOL 17 GM PKG PO SCH (09:00)
[2017-06-28] MEDS: VITAMIN B CMPLX/VITC/FOLIC AC CAP PO SCH (09:44)
[2017-06-28] MEDS: APIXABAN 2.5 MG TABLET PO SCH ×2 (09:45→20:07)
[2017-06-28] MEDS: NICOTINE 7 MG/24 HR PATCH T-DERMAL SCH (09:45)
[2017-06-28] MEDS: MORPHINE SULFATE 15 MG CONTROLLED RELEASE TAB PO SCH ×2 (09:45→20:06)
[2017-06-28] MEDS: PANTOPRAZOLE SOD 40 MG DELAYED RELEASE TAB PO SCH (09:46)
[2017-06-28] MEDS: CHOLECALCIFEROL (VIT D3) 5000 UNIT CAP PO SCH (09:46)
[2017-06-28] MEDS: LISINOPRIL 20 MG TAB PO SCH (09:46)
[2017-06-28] MEDS: CARVEDILOL 12.5 MG TAB PO SCH ×2 (09:46→20:06)
[2017-06-28] MEDS: LACTOBACILLUS ACIDOPHILUS TAB PO SCH ×2 (09:46→20:06)
[2017-06-28] MEDS: SERTRALINE HCL 100 MG TAB PO SCH (09:46)
[2017-06-28] MEDS: CLOPIDOGREL 75 MG TAB PO SCH (09:46)
[2017-06-28] MEDS: SEVELAMER CARBONATE 800 MG TAB PO SCH ×3 (09:47→18:30)
[2017-06-28] MEDS: SODIUM CHLORIDE 0.9% FLUSH 10 ML FLUSH IV FLUSH SCH ×2 (09:47→20:05)
[2017-06-28] MEDS: INSULIN DETEMIR 100 UNITS/ML VIAL SQ SCH ×2 (09:47→20:05)
[2017-06-28 12:00] VITALS: BP 124/56; PULSE 64; RESP 18; TEMP 97.4; O2SAT 97
--- NOTE | 2017-06-28 12:02 | HHI.NPPN ---
Subjective History of Present Illness Patient is a 47-year-old the female with history of end-stage renal disease, diabetes, blindness, peripheral vascular disease, calciphylaxis, ischemic left foot, previous right BKA who has certainly admitted with the chest pain she's described the pain in the left side radiating to his left shoulder, patient has similar complaints a few weeks ago, and was discharged after workup She goes to dialysis on Saturday, Saturday and Saturday Additional Remarks c/o pain Review of Systems Gastrointestinal Gastrointestinal: Abdominal Pain Objective Data Data 06/28/17 06/29/17 19:00 07:00 Intake Total 240 ml Balance 240 ml Intake Oral 240 ml Vital Signs Date Time Temp Pulse Resp B/P (MAP) Pulse Ox O2 Delivery O2 Flow Rate FiO2 06/28/17 09:00 Room Air 06/28/17 08:00 97.7 64 18 122/58 (79) 95 06/28/17 04:00 97.9 66 18 129/60 (83) 94 06/28/17 00:43 98.1 68 18 138/55 (82) 98 06/27/17 23:23 16 06/27/17 23:23 16 06/27/17 20:00 98.0 65 20 147/58 (87) 94 06/27/17 20:00 Room Air 2.00 21 06/27/17 20:00 65 06/27/17 16:00 97.0 63 18 146/63 (90) 97 06/27/17 12:00 97.9 66 18 141/50 (80) 92 -: 06/28/17 0404 06/28/17 0404 Physical Exam General Appearance: Well Developed, Well Nourished Neck Neck Exam: Neck Supple Pulmonary Resp Exam: Clear Bilaterally, Breath Sounds Equal Cardiology CV Exam: Regular Gastrointestinal/Abdomen GI Exam: Soft, Non-Tender, Bowel Sounds Present Extremeties Extremities Exam: Trace Edema Extremeties Remarks ischemic l foot Assessment/Plan Problem List: (1) ESRD (end stage renal disease) on dialysis ICD Codes: N18.6 - End stage renal disease; Z99.2 - Dependence on renal dialysis Status: Chronic Plan: HD MWF Hemodialysis next today drain in splenic abscess was manipulated, flushed now draining better it was painful getting Vanco/Ceftriaxone fluid Enterobacter/Propionibacterium alert responsive doing well (2) Hyperkalemia ICD Codes: E87.5 - Hyperkalemia Status: Acute Plan: Hemodialysis planned (3) Calciphylaxis ICD Codes: E83.59 - Other disorders of calcium metabolism Status: Acute Plan: Continue with sodium thiosulfate (4) Peripheral vascular disease ICD Codes: I73.9 - Peripheral vascular disease, unspecified Status: Acute Plan: Had previous procedures done (5) Diabetes ICD Codes: E11.9 - Type 2 diabetes mellitus without complications Status: Chronic Plan: Monitor blood glucose (6) Hypertension ICD Codes: I10 - Essential (primary) hypertension Status: Chronic Plan: Continue to monitor blood pressure (7) Chest pain ICD Codes: R07.9 - Chest pain, unspecified Status: Acute Plan: as above follow VQ scan Problem Qualifiers (1) Diabetes: (2) Hypertension: Qualified Codes: I10 - Essential (primary) hypertension (3) Chest pain: Qualified Codes: R07.9 - Chest pain, unspecified Gerri Gilbert MD Jun 28, 2017 12:02
[2017-06-28] MEDS ORDERED: diphenhydrAMINE HCL ELIXIR 12.5 MG/5 ML CUP PO ONE (12:30)
[2017-06-28] MEDS: cefTRIAXone INJ 2,000 MG in SODIUM CHLORIDE 0.9% INJ 100 ML IV SCH (14:00)
[2017-06-28 15:38] VITALS: PULSE 64
[2017-06-28] MEDS: VANCOMYCIN INJ 1,000 MG in SODIUM CHLOR 0.9% 250 ML INJ 250 ML IV SCH (16:28)
[2017-06-28] MEDS: SODIUM THIOSULFATE INJ 25,000 MG in WATER STERILE FOR INJ 100 ML IV PRN ×2 (16:30→16:39)
[2017-06-28] MEDS: EPOETIN ALFA 10,000 UNITS/ML VIAL IV PUSH PRN (16:30)
[2017-06-28] MEDS: GELATIN 12 MM/7 MM FOAM TOP PRN (16:30)
--- NOTE | 2017-06-28 16:58 | HHI.FPPN ---
Subjective Remarks Ms Laguerre has been in some pain overnight that is reasonably controlled. She is eating a little, but the drain in her back is sore. She tells us that IR infused something to get rid of a clot in the drain that has been irritating and making her pain worse. We discussed the small fluid collection seen on US 2 days ago and why IR could not perform any further drainage at this time. After our visit, she was itchy. Denies CP, SOB, N/V/D and DVT pain. She is scheduled for HD today. Objective Vitals Vital Signs Date Time Temp Pulse Resp B/P (MAP) Pulse Ox O2 Delivery O2 Flow Rate FiO2 06/28/17 15:38 64 06/28/17 12:00 97.4 64 18 124/56 (78) 97 06/28/17 09:00 Room Air 06/28/17 08:00 64 06/28/17 08:00 97.7 64 18 122/58 (79) 95 06/28/17 04:00 97.9 66 18 129/60 (83) 94 06/28/17 00:43 98.1 68 18 138/55 (82) 98 06/27/17 23:23 16 06/27/17 23:23 16 06/27/17 20:00 98.0 65 20 147/58 (87) 94 06/27/17 20:00 Room Air 2.00 21 06/27/17 20:00 65 I/O 06/27/17 06/27/17 06/27/17 06/28/17 06/28/17 06/28/17 07:00 15:00 23:00 07:00 15:00 23:00 Intake Total 360 ml 305 ml 820 ml 200 ml 340 ml Output Total 20 ml 20 ml 0 ml Balance 340 ml 285 ml 820 ml 200 ml 340 ml Intake Oral 360 ml 720 ml 240 ml IV Total 305 ml 100 ml 200 ml 100 ml Output Urine Total 0 ml Stool Total 0 ml Drainage Total 20 ml 20 ml 0 ml # Voids 0 3 # Bowel Movements 1 0 Result Diagram: 06/28/1740306/28/17403 Objective Remarks General: Lying in bed on her right side, happy to see us, but anxious with back pain where the drain is inserted in upper left flank Skin: 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 Poor dentition. MMM. Neck: Supple, no lymphadenopathy, no thyromegaly CV: RRR, no murmurs, rubs, or gallops, no edema. Lungs: CTAB, no wheezing, rales, or rhonchi. No increased WOB. Moves air poorly. Abdomen: Soft, nontender in lower quadrants, but tender in upper RUQ near diaphragm, and LUQ and at drainage site; no guarding; normal BS. BACK: Spleen abscess drain in place at left lateral costal margin with induration and swelling approx same size since 06/27 measuring 21cm x 11cm; however, no signs of cellulitis on skin around drain, no bruising or erythema; no guarding. Scant serosanguineous fluid Neuro: Alert and oriented, EOMI, PERRLA, CN intact. Procedures splenic abscess drainage by IR 06/20/17 Medications and IVs Current Medications Medications (Trade) Dose Ordered Sig/Jen Route Start Time Stop Time Status Last Admin Sodium Chloride 1,000 ml @ 0 mls/hr Q0M PRN OTHER 06/17/17 13:27 (Heparin Inj) 8,000 units UNSCH PRN IV FLUSH 06/17/17 13:30 Sodium Chloride 1,000 ml @ 200 mls/hr Q5H PRN IV 06/17/17 13:27 Sodium Chloride 1,000 ml @ 0 mls/hr Q0M PRN OTHER 06/17/17 13:27 (Mannitol Inj) 12.5 gm UNSCH PRN IV 06/17/17 13:30 Albumin Human 100 ml @ 60 mls/hr UNSCH PRN IV 06/17/17 13:30 06/26/17 11:55 (NS Flush) 5 ml UNSCH PRN IV FLUSH 06/17/17 13:30 (Heparin Inj) UNSCH PRN .XX 06/17/17 13:30 (Gentamicin (Dialysis) Inj) 20 mg UNSCH PRN OTHER 06/17/17 13:30 (Zofran Inj) 4 mg UNSCH PRN IV PUSH 06/17/17 13:30 (Nitrostat Sl) 0.4 mg UNSCH PRN SL 06/17/17 13:30 (Catapres) 0.1 mg UNSCH PRN PO 06/17/17 13:30 (Epogen Inj) 4,000 units UNSCH PRN IV PUSH 06/17/17 13:30 06/28/17 16:30 (Gelfoam 12 Mm/7 Mm Top) 1 foam UNSCH PRN TOP 06/17/17 13:30 06/28/17 16:30 Sodium Thiosulfate 72145 mg/Sterile Water 200 ml @ 150 mls/hr WITH DIALYSIS PRN IV 06/17/17 13:30 06/26/17 12:56 (NS Flush) 2 ml UNSCH PRN IV FLUSH 06/17/17 14:45 (NS Flush) 2 ml BID IV FLUSH 06/17/17 21:00 06/28/17 09:47 (Zofran Inj) 4 mg Q6H PRN IVP 06/17/17 18:00 (Narcan Inj) 0.4 mg UNSCH PRN IV PUSH 06/17/17 14:45 (Areli-Colace) 2 tab BID PO 06/17/17 21:00 06/26/17 21:25 (D50w (Vial) Inj) 50 ml UNSCH PRN IV PUSH 06/17/17 15:00 (Glucagon Inj) 1 mg UNSCH PRN OTHER 06/17/17 15:00 (NovoLOG SUPPLEMENTAL SCALE) 1 ACHS SLIDING SCALE SQ 06/17/17 17:00 06/28/17 12:42 (Coreg) 25 mg BID PO 06/17/17 21:00 06/28/17 09:46 (Vitamin D3) 5,000 units DAILY PO 06/18/17 09:00 06/28/17 09:46 (Zoloft) 100 mg DAILY PO 06/18/17 09:00 06/28/17 09:46 (Nephrocaps) 1 cap DAILY PO 06/18/17 09:00 06/28/17 09:44 (Protonix) 40 mg DAILY PO 06/17/17 15:00 06/28/17 09:46 (Habitrol 7 Mg Patch.24 Hr) 1 patch DAILY T-DERMAL 06/18/17 09:00 06/28/17 09:45 Miscellaneous Information 1 HS T-DERMAL 06/17/17 21:00 06/27/17 21:00 (Desyrel) 50 mg HS PO 06/19/17 21:00 Future Hold 06/20/17 21:24 (Miralax) 17 gm DAILY PO 06/20/17 09:00 06/27/17 10:28 (Levemir Inj) 5 units BID SQ 06/20/17 21:00 06/28/17 09:47 (Renvela) 3,200 mg TIDPC PO 06/20/17 18:30 06/28/17 09:47 Pharmacy Profile Note 0 ml @ 0 mls/hr UNSCH OTHER 06/22/17 13:00 (Plavix) 75 mg DAILY PO 06/23/17 09:00 06/28/17 09:46 (Eliquis) 2.5 mg BID PO 06/22/17 21:00 06/28/17 09:45 Acetaminophen 100 ml @ 400 mls/hr Q6H IV 06/23/17 12:45 06/28/17 12:42 (Norvasc) 5 mg DAILY PO 06/24/17 09:00 06/28/17 09:44 (Prinivil) 20 mg DAILY PO 06/24/17 09:00 06/28/17 09:46 Vancomycin HCl 1000 mg/Sodium Chloride 250 ml @ 250 mls/hr MoWeFr@1700 IV 06/24/17 17:00 06/28/17 16:28 Ceftriaxone Sodium 2000 mg/ Sodium Chloride 100 ml @ 200 mls/hr Q24H IV 06/24/17 14:00 06/27/17 13:32 (Lactinex) 1 tab Q12HR PO 06/26/17 09:00 06/28/17 09:46 (Oramorph Sr) 15 mg Q12HR PO 06/26/17 12:15 06/28/17 09:45 Urinary Catheter: No Vascular Central Line Catheter: No A/P Assessment and Plan 47-year-old female with a past medical history of end-stage renal disease on HD MWF, diabetes, hypertension, PAD, recently discharged from the hospital on 03 June where she was found to have an acute splenic infarction, presented with a one-day history of chest pain and left shoulder pain as well as elevated potassium and creatinine. She was admitted to the hospital for dialysis and ACS rule out and was found to have a splenic abscess identified on CTA performed on 06/19/17. Splenic abscess drained placed by IR on 06/21. ID is assisting with antibiotic management. She is currently on Rocephin IV and Vancomycin IV. Pt with increased pain at drain site 06/25 with soft tissue US finding a small fluid collection described by radiology as being roughly 1cm x 1cm and recommend covering with current abx vs I&D at this time 06/28: Goals of care: HD today, pain control, benadryl for itching, and IR to remove drain when no longer draining fluid Seen and examined with Dr Torres; discussed with Dr Davis Discharge Planning Pending management of splenic abscess, stable vital signs, safe discharge. Problem List: (1) Splenic abscess ICD Codes: D73.3 - Abscess of spleen Status: Acute Plan: CTA performed on 06/19 showed interval development of air-containing fluid collection in the spleen measuring up to 6.9 x 3.0 cm in maximal dimension with subcapsular fluid in region of prior splenic infarction, concerning for splenic abscess. No significant aortic or mesenteric stenoses identified. Interventional radiology drained abscess 06/20/17--serosanguineous drainage noted today. Cultures of drained abscess fluid growing propionibacterium and collins-sensitive Enterobacter cloacae. -ID consulted - continue vancomycin for previously diagnosed bacteremia -Continue Rocephin IV started on 06/24/17 -Blood cultures show no growth in 5 days -Tylenol 1000mg IV q6h scheduled for pain -Oramorph 15mg PO q12hr -Waiting on IR to determine when to remove drain -Soft tissue US around splenic abscess drain shows a small collection of fluid, approx 1cm x 1cm; will manage with abx vs repeat drainage/I&D; IR serviced drain this morning -Area of induration and swelling measuring 21cm x 11cm w/o erythema, warmth, and cellulitis (2) Altered mental status ICD Codes: R41.82 - Altered mental status, unspecified Status: Resolved Plan: Resolved. Acute altered mental status on 06/22/17, essentially benign neuro exam otherwise. Stat EEG performed that day showing triphasic waves, possibly metabolic encephalopathy. - Much alert today and fully oriented - Neurology, Dr Collins, consulted and following - Discontinued Keppra per Dr Collins - Fall precautions (3) ESRD (end stage renal disease) on dialysis ICD Codes: N18.6 - End stage renal disease; Z99.2 - Dependence on renal dialysis Status: Chronic Plan: -Hemodialysis MWF per nephrology recommendations, Dr. Gilbert on board -Avoid nephrotoxic agents (4) Hyperkalemia ICD Codes: E87.5 - Hyperkalemia Status: Acute Plan: -Fluctuating levels of potassium -Dialysis as above (5) Hypertension ICD Codes: I10 - Essential (primary) hypertension Status: Chronic Plan: -Continue home medications: Amlodipine, Coreg, and lisinopril with hold parameters for low blood pressure and/or bradycardia (6) Diabetes ICD Codes: E11.9 - Type 2 diabetes mellitus without complications Status: Chronic Plan: -Levemir 5 units BID -Continue glucose monitoring with SSI - does not have much SSI requirement (7) Peripheral vascular disease ICD Codes: I73.9 - Peripheral vascular disease, unspecified Status: Acute Plan: - Continue clopidogrel 75 mg PO daily (8) Calciphylaxis ICD Codes: E83.59 - Other disorders of calcium metabolism Status: Acute Plan: -Continue thiosulfate per nephrology (9) Tobacco abuse ICD Codes: Z72.0 - Tobacco use Status: Chronic Plan: -Nicotine patch 7 mg (10) Physical deconditioning ICD Codes: R53.81 - Other malaise Status: Chronic Plan: -PT consulted to assist with ambulation and exercises (11) Chronic Medical Problems Status: Chronic Plan: Diabetic neuropathy: Holding gabapentin 400 mg by mouth 3 times a day due to recent altered mental status. Will resume this medication slowly Hyperlipidemia: Continue Atorvastin, Pravastatin Anxiety/Depression: Continue sertraline 100 mg by mouth daily, holding trazodone 50 mg by mouth at bedtime due to recent altered mental status. Will resume this medication slowly (12) Hyperphosphatemia ICD Codes: E83.39 - Other disorders of phosphorus metabolism Status: Resolved Plan: -Restarted Renvela 3200mg TID on 06/20 -Follow Phos (13) FEN/DVT PPX/GI PPX/Nursing Orders Plan: Fluids: Oral fluids only, on hemodialysis Electrolytes: Will monitor and replace as needed Nutrition: Renal diet DVT Prophylaxis: Unilateral SCDs, Eliquis 2.5 mg by mouth twice a day PRN Medications Zofran 4 mg IV push every 6 hours when necessary nausea vomiting Oramorph 15mg q12h for pain Tylenol 1g IV q6h for pain Holding Morphine 4 mg IV every 3 hours when necessary breakthrough pain -Vitals Q4h -Monitor I's and O's -Fall precautions -digital strategy specialist with telemetry with continuous vital signs -Activity OOB with assistance -PT to assist with ambulation -Case management consult to assist with discharge disposition Problem Qualifiers (1) Hypertension: Qualified Codes: I10 - Essential (primary) hypertension (2) Diabetes: Jaylan Grey MD R1 Jun 28, 2017 16:58
[2017-06-28 20:00] VITALS: BP 120/50; PULSE 70; PULSE 74; RESP 19; TEMP 98; O2SAT 96
[2017-06-28] MEDS: REMOVE OLD PATCH T-DERMAL SCH (20:07)
[2017-06-28] MEDS ORDERED: levETIRAcetam 250 MG/NS 100 ML IV SCH ×2 (21:00)
[2017-06-29] VITALS (7 sets, daily range): BP systolic 99–136; BP diastolic 46–59; PULSE 68–74; RESP 17–19; TEMP 98–98.5; O2SAT 96–100
[2017-06-29] MEDS: ACETAMINOPHEN 1000 MG/100 ML 100 ML IV SCH ×4 (00:45→17:54)
[2017-06-29 07:57] LABS: HEMATOCRIT 32.2 % (35.0-46.0); MEAN CELL VOLUME 94.2 FL (80.0-100.0); MEAN CORPUSCULAR HEMOGLOBIN 30.6 PG (27.0-34.0); MEAN CORPUSCULAR HGB CONC 32.5 % (32.0-36.0); PLATELET COUNT 292 TH/MM3 (150-450); RED BLOOD COUNT 3.42 MIL/MM3 (4.00-5.30); RED CELL DISTRIBUTION WIDTH 16.8 % (11.6-17.2); REVIEW FLAG FINAL; WHITE BLOOD COUNT 12.7 TH/MM3 (4.0-11.0)
[2017-06-29] MEDS: INSULIN ASPART SUPPLEMENTAL SCALE SQ SCH ×4 (08:00→20:56)
[2017-06-29 08:20] LABS: POTASSIUM 4.3 MEQ/L (3.5-5.1)
[2017-06-29] MEDS: POLYETHYLENE GLYCOL 17 GM PKG PO SCH (09:00)
[2017-06-29] MEDS: LACTOBACILLUS ACIDOPHILUS TAB PO SCH ×2 (09:00→20:54)
[2017-06-29] MEDS: INSULIN DETEMIR 100 UNITS/ML VIAL SQ SCH ×2 (09:00→20:56)
--- NOTE | 2017-06-29 09:08 | HHI.IDPN ---
Subjective Subjective Remarks 47 y/o female with ESRD, on HD MWF, on Rx for Enterococcal and Kleb sepsis, being Rxd for possible endocarditis, found to have splenic infarct during last admission. Rx supposed to toña completed this month. Readmitted for CP and L shoulder pain. Cardiac work-up negative. Found now to have splenic abscess. has been afebrile. WBC normal. BC negative Notes reviewed Temps ok HD yesterday Still putting out some from her percutaneous drain Still C/O pain C/S from the drain with Propionobacterium and Enterobacter Antibiotics Vanco Rocephin Current Medications Medications (Trade) Dose Ordered Sig/Jen Route Start Time Stop Time Status Last Admin Sodium Chloride 1,000 ml @ 0 mls/hr Q0M PRN OTHER 06/17/17 13:27 (Heparin Inj) 8,000 units UNSCH PRN IV FLUSH 06/17/17 13:30 Sodium Chloride 1,000 ml @ 200 mls/hr Q5H PRN IV 06/17/17 13:27 Sodium Chloride 1,000 ml @ 0 mls/hr Q0M PRN OTHER 06/17/17 13:27 (Mannitol Inj) 12.5 gm UNSCH PRN IV 06/17/17 13:30 Albumin Human 100 ml @ 60 mls/hr UNSCH PRN IV 06/17/17 13:30 06/26/17 11:55 (NS Flush) 5 ml UNSCH PRN IV FLUSH 06/17/17 13:30 (Heparin Inj) UNSCH PRN .XX 06/17/17 13:30 (Gentamicin (Dialysis) Inj) 20 mg UNSCH PRN OTHER 06/17/17 13:30 (Zofran Inj) 4 mg UNSCH PRN IV PUSH 06/17/17 13:30 (Nitrostat Sl) 0.4 mg UNSCH PRN SL 06/17/17 13:30 (Catapres) 0.1 mg UNSCH PRN PO 06/17/17 13:30 (Epogen Inj) 4,000 units UNSCH PRN IV PUSH 06/17/17 13:30 06/28/17 16:30 (Gelfoam 12 Mm/7 Mm Top) 1 foam UNSCH PRN TOP 06/17/17 13:30 06/28/17 16:30 Sodium Thiosulfate 97988 mg/Sterile Water 200 ml @ 150 mls/hr WITH DIALYSIS PRN IV 06/17/17 13:30 06/26/17 12:56 (NS Flush) 2 ml UNSCH PRN IV FLUSH 06/17/17 14:45 (NS Flush) 2 ml BID IV FLUSH 06/17/17 21:00 06/28/17 20:05 (Zofran Inj) 4 mg Q6H PRN IVP 06/17/17 18:00 (Narcan Inj) 0.4 mg UNSCH PRN IV PUSH 06/17/17 14:45 (Areli-Colace) 2 tab BID PO 06/17/17 21:00 06/26/17 21:25 (D50w (Vial) Inj) 50 ml UNSCH PRN IV PUSH 06/17/17 15:00 (Glucagon Inj) 1 mg UNSCH PRN OTHER 06/17/17 15:00 (NovoLOG SUPPLEMENTAL SCALE) 1 ACHS SLIDING SCALE SQ 06/17/17 17:00 06/28/17 21:38 (Coreg) 25 mg BID PO 06/17/17 21:00 06/28/17 20:06 (Vitamin D3) 5,000 units DAILY PO 06/18/17 09:00 06/28/17 09:46 (Zoloft) 100 mg DAILY PO 06/18/17 09:00 06/28/17 09:46 (Nephrocaps) 1 cap DAILY PO 06/18/17 09:00 06/28/17 09:44 (Protonix) 40 mg DAILY PO 06/17/17 15:00 06/28/17 09:46 (Habitrol 7 Mg Patch.24 Hr) 1 patch DAILY T-DERMAL 06/18/17 09:00 06/28/17 09:45 Miscellaneous Information 1 HS T-DERMAL 06/17/17 21:00 06/28/17 20:07 (Desyrel) 50 mg HS PO 06/19/17 21:00 Future Hold 06/20/17 21:24 (Miralax) 17 gm DAILY PO 06/20/17 09:00 06/27/17 10:28 (Levemir Inj) 5 units BID SQ 06/20/17 21:00 06/28/17 20:05 (Renvela) 3,200 mg TIDPC PO 06/20/17 18:30 06/28/17 09:47 Pharmacy Profile Note 0 ml @ 0 mls/hr UNSCH OTHER 06/22/17 13:00 (Plavix) 75 mg DAILY PO 06/23/17 09:00 06/28/17 09:46 (Eliquis) 2.5 mg BID PO 06/22/17 21:00 06/28/17 20:07 Acetaminophen 100 ml @ 400 mls/hr Q6H IV 06/23/17 12:45 06/29/17 05:34 (Norvasc) 5 mg DAILY PO 06/24/17 09:00 06/28/17 09:44 (Prinivil) 20 mg DAILY PO 06/24/17 09:00 06/28/17 09:46 Vancomycin HCl 1000 mg/Sodium Chloride 250 ml @ 250 mls/hr MoWeFr@1700 IV 06/24/17 17:00 06/28/17 16:28 Ceftriaxone Sodium 2000 mg/ Sodium Chloride 100 ml @ 200 mls/hr Q24H IV 06/24/17 14:00 06/27/17 13:32 (Lactinex) 1 tab Q12HR PO 06/26/17 09:00 06/28/17 20:06 (Oramorph Sr) 15 mg Q12HR PO 06/26/17 12:15 06/28/17 20:06 Lines PIV Past Medical History ESRD, on dialysis Saturday and Saturday Hypertension CAD Hyperlipidemia Diabetes Hepatitis C Legally blind Prior miscarriage PVD Calciphylaxis Past Surgical History Cholecystectomy R UE AV fistula Right nephrectomy Dental extraction Tonsillectomy R BKA Allergies: Coded Allergies: codeine (Verified Allergy, Severe, HYPERACTIVITY &ITCH, 06/17/17) iodine (Verified Allergy, Severe, TOPICAL/ITCH, 06/17/17) potassium iodide (Verified Allergy, Severe, TOPICAL/ITCH, 06/17/17) povidone-iodine (Verified Allergy, Severe, TOPICAL/ITCH, 06/17/17) sodium iodide (Verified Allergy, Severe, TOPICAL/ITCH, 06/17/17) sodium iodide (Verified Allergy, Severe, TOPICAL/ITCH, 06/17/17) iohexol (Verified Allergy, Intermediate, HIVES, 06/17/17) Pork/Porcine Containing Products (Verified Allergy, Unknown, 06/17/17) penicillin G (Verified Allergy, Unknown, 06/17/17) Objective . Vital Signs Date Time Temp Pulse Resp B/P (MAP) Pulse Ox O2 Delivery O2 Flow Rate FiO2 06/29/17 07:28 Room Air 06/29/17 04:00 98.2 69 19 136/58 (84) 100 06/29/17 00:00 98.5 69 19 104/49 (67) 96 06/28/17 20:00 74 06/28/17 20:00 98.0 70 19 120/50 (73) 96 06/28/17 19:15 Room Air 2.00 21 06/28/17 15:38 64 06/28/17 12:00 97.4 64 18 124/56 (78) 97 06/29/17 06/29/17 06/30/17 15:00 23:00 07:00 Intake Total 0 ml Balance 0 ml IV Total 0 ml . Laboratory Tests Test 06/27/17 10:01 06/28/17 04:04 06/29/17 07:32 White Blood Count 9.8 TH/MM3 12.1 TH/MM3 12.7 TH/MM3 Red Blood Count 3.38 MIL/MM3 3.24 MIL/MM3 3.42 MIL/MM3 Hemoglobin 10.3 GM/DL 9.7 GM/DL 10.5 GM/DL Hematocrit 31.8 % 30.4 % 32.2 % Mean Corpuscular Volume 93.9 FL 93.7 FL 94.2 FL Mean Corpuscular Hemoglobin 30.5 PG 30.0 PG 30.6 PG Mean Corpuscular Hemoglobin Concent 32.5 % 32.0 % 32.5 % Red Cell Distribution Width 16.9 % 16.8 % 16.8 % Platelet Count 293 TH/MM3 300 TH/MM3 292 TH/MM3 Mean Platelet Volume 7.9 FL 8.2 FL 8.5 FL Neutrophils (%) (Auto) 78.2 % Lymphocytes (%) (Auto) 9.7 % Monocytes (%) (Auto) 7.8 % Eosinophils (%) (Auto) 3.6 % Basophils (%) (Auto) 0.7 % Neutrophils # (Auto) 7.7 TH/MM3 Lymphocytes # (Auto) 1.0 TH/MM3 Monocytes # (Auto) 0.8 TH/MM3 Eosinophils # (Auto) 0.4 TH/MM3 Basophils # (Auto) 0.1 TH/MM3 CBC Comment DIFF FINAL Differential Comment Laboratory Tests Test 06/27/17 10:01 06/28/17 04:04 06/29/17 07:32 Blood Urea Nitrogen 34 MG/DL 46 MG/DL 31 MG/DL Creatinine 5.80 MG/DL 7.14 MG/DL 5.42 MG/DL Random Glucose 133 MG/DL 174 MG/DL 120 MG/DL Calcium Level 9.6 MG/DL 9.7 MG/DL 9.7 MG/DL Sodium Level 136 MEQ/L 133 MEQ/L 135 MEQ/L Potassium Level 4.3 MEQ/L 4.6 MEQ/L 4.3 MEQ/L Chloride Level 92 MEQ/L 92 MEQ/L 95 MEQ/L Carbon Dioxide Level 29.4 MEQ/L 27.7 MEQ/L 30.0 MEQ/L Anion Gap 15 MEQ/L 13 MEQ/L 10 MEQ/L Estimat Glomerular Filtration Rate 8 ML/MIN 6 ML/MIN 9 ML/MIN Imaging RADIOLOGY STUDIES/FILMS REVIEWED Last Impressions Soft Tissue Ultrasound 06/26/17 0000 Signed Impressions: Service Date/Time: Monday, June 26, 2017 17:11 - CONCLUSION: Small fluid collection around the drain Vamsi Keenan MD FACR Chest X-Ray 06/23/17 0000 Signed Impressions: Service Date/Time: Friday, June 23, 2017 13:55 - CONCLUSION: 1. Hypoinflation with worsening bibasilar airspace disease. Possible associated effusions. 2. Cardiomegaly. Dennis Trimble MD Brain MRI 06/22/17 0000 Signed Impressions: Service Date/Time: Thursday, June 22, 2017 14:51 - CONCLUSION: Negative exam. Dennis Trimble MD Abscess Drainage CT 06/20/17 0000 Signed Impressions: Service Date/Time: June 10:20 - CONCLUSION: Uncomplicated CT guided drainage of the left upper quadrant perisplenic fluid collection. Samples were saved and sent to lab for Gram stain and cultures. Abhijit De Los Santos MD Abdomen/Pelvis CT 06/18/17 0000 Signed Impressions: Service Date/Time: Monday, June 19, 2017 08:14 - CONCLUSION: 1. Interval development of air-containing fluid collection in the spleen measuring up to 6.9 x 3.0 cm in maximal dimension with subcapsular fluid in region of prior splenic infarction. This finding is concerning for splenic abscess. 2. Mild bibasilar ground glass opacities and platelike air space consolidation in the left lower lobe, likely atelectasis. 3. No significant aortic or mesenteric stenosis as questioned. 4. End-stage appearing kidneys. 5. Trace place pelvic free fluid. Findings were personally discussed with Dr. Johnston. Capo Liu MD Abdomen X-Ray 06/18/17 0000 Signed Impressions: Service Date/Time: Sunday, June 18, 2017 13:38 - CONCLUSION: 1. No acute abdominal abnormality is identified. There are no findings to indicate obstruction. 2. Severe renal artery vascular calcification. Abhijit De Los Santos MD Lung Scan-V Nuclear Medicine 06/17/17 0000 Signed Impressions: Service Date/Time: Saturday, June 17, 2017 16:03 - CONCLUSION: 1. Central trapping on the ventilatory images. Nonspecific but can be seen in COPD. 2. Otherwise, low probability scan for pulmonary embolus. Dennis Trimble MD Physical Exam GENERAL: awake and alert, NAD SKIN: Warm and dry. Has superficial round ulcers on face, with some crusting and some in her UE HEAD: Atraumatic. Normocephalic. No temporal wasting, or tenderness. EYES: [place] conjunctiva. No petechia or hemorrhage. Pupils equal, round and reactive to light. Extraocular movements full and intact. No scleral icterus. EARS, NOSE AND THROAT: Nose without bleeding or purulent nasal discharge. Mucous membranes pink and moist. No oral lesions noted. She is edentulous. NECK: Trachea midline. Supple and not tender, no meningeal signs CARDIOVASCULAR: Regular rate and rhythm. No murmurs, rubs or gallops heard RESPIRATORY: Clear to auscultation. Breath sounds equal bilaterally. No rales , wheezing or rhonchi ABDOMEN: Soft, nondistended, with diffuse abdominal tenderness, but no guarding or rebound. Bowel sounds present and normoactive. No organomegaly. EXTREMITIES: No clubbing, cyanosis, or edema. No joint effusion, has good ROM. No calf tenderness. Well perfused and warm. RUE AVF with no evidence of infection. S/P RBKA, well healed stump NEUROLOGICAL: Awake and alert. Cranial nerves grossly intact. Motor grossly within normal limits. PSYCHIATRIC: Normal affect, calm and cooperative. LINE: No evidence of infection Assessment & Plan Remarks IMPRESSION Enterococcal and Klebsiella bacteremia, on Rx for possible endocarditis, with splenic infarct - MARILU no vegetation done during last admission Splenic abscess, developed while on Rx for bacteremia - C/S with different bacteria: Enterobacter and Propionobacterium ESRD, on HD MWF Hx IVDU, ?continued use of IVD Has skin lesions which according to patient is from calciphylaxis, ?popping or picking due to drugs RECOMMENDATION Continue IV Vancomycin - Floor RV giving the dose Continue Rocephin Monitor progress Will need follow-up CT A/P if drainage output continues to decrease Carrie Sanchez MD Jun 29, 2017 09:08
--- NOTE | 2017-06-29 09:41 | HHI.FPPN ---
Subjective Remarks Patient is doing well this morning. Her pain is better controlled although she complains of new pain in the right side of her back. She has no fever or nausea and has regular bowel movements. She is eating well. (Leena Johnston MD R2) Objective Vitals Vital Signs Date Time Temp Pulse Resp B/P (MAP) Pulse Ox O2 Delivery O2 Flow Rate FiO2 06/29/17 08:00 98.1 74 18 111/51 (71) 97 06/29/17 07:28 Room Air 06/29/17 04:00 98.2 69 19 136/58 (84) 100 06/29/17 00:00 98.5 69 19 104/49 (67) 96 06/28/17 20:00 74 06/28/17 20:00 98.0 70 19 120/50 (73) 96 06/28/17 19:15 Room Air 2.00 21 06/28/17 15:38 64 06/28/17 12:00 97.4 64 18 124/56 (78) 97 I/O 06/28/17 06/28/17 06/28/17 06/29/17 06/29/17 06/29/17 07:00 15:00 23:00 07:00 15:00 23:00 Intake Total 200 ml 340 ml 1105 ml 200 ml 0 ml Output Total 4505 ml 25 ml Balance 200 ml 340 ml -3400 ml 175 ml 0 ml Intake Oral 240 ml 1105 ml 100 ml IV Total 200 ml 100 ml 100 ml 0 ml Drainage Total 5 ml 25 ml Hemodialysis 4500 ml # Voids 3 0 0 # Bowel Movements 0 1 0 (Leena Johnston MD R2) Result Diagram: 06/29/17 0732 06/29/17 0732 Objective Remarks General: Sleeping quietly but easily awakened, in no distress Skin: 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 Poor dentition. MMM. Neck: Supple, no lymphadenopathy, no thyromegaly CV: RRR, no murmurs, rubs, or gallops, no edema. Lungs: CTAB, no wheezing, rales, or rhonchi. No increased WOB. Moves air poorly but better than the previous days. Abdomen: Soft, nontender in lower quadrants, but tender in left back around drainage site; no guarding; normal BS. BACK: Spleen abscess drain in place at left lateral costal margin with induration and swelling approx same size since 06/27 measuring 21cm x 11cm; however, no signs of cellulitis on skin around drain, no bruising or erythema; no guarding. Scant serosanguineous fluid Neuro: Alert and oriented, EOMI, PERRLA, CN intact. Procedures splenic abscess drainage by IR 06/20/17 (Leena Johnston MD R2) A/P Assessment and Plan 47-year-old female with a past medical history of end-stage renal disease on HD MWF, diabetes, hypertension, PAD, recently discharged from the hospital on 03 June where she was found to have an acute splenic infarction, presented with a one-day history of chest pain and left shoulder pain as well as elevated potassium and creatinine. She was admitted to the hospital for dialysis and ACS rule out and was found to have a splenic abscess identified on CTA performed on 06/19/17. Splenic abscess drained placed by IR on 06/21. ID is assisting with antibiotic management. She is currently on Rocephin IV and Vancomycin IV. Pt with increased pain at drain site 06/25 with soft tissue US finding a small fluid collection described by radiology as being roughly 1cm x 1cm and recommend covering with current abx vs I&D at this time. IR to remove drain when no longer draining fluid. Seen and examined with Dr Grey. Discussed with Dr. Fernandez Discharge Planning Pending management of splenic abscess, stable vital signs, safe discharge. (Leena Johnston MD R2) Attending Attestation Case reviewed and discussed with the resident team. Agree with plan of care as discussed with me and documented in the resident note. (Harjinder Fernandez MD) Problem List: (1) Splenic abscess ICD Codes: D73.3 - Abscess of spleen Status: Acute Plan: CTA performed on 06/19 showed interval development of air-containing fluid collection in the spleen measuring up to 6.9 x 3.0 cm in maximal dimension with subcapsular fluid in region of prior splenic infarction, concerning for splenic abscess. No significant aortic or mesenteric stenoses identified. Interventional radiology drained abscess 06/20/17--serosanguineous drainage noted today. Cultures of drained abscess fluid growing propionibacterium and collins-sensitive Enterobacter cloacae. -ID on board - continue vancomycin for previously diagnosed bacteremia -Continue Rocephin IV started on 06/24/17 -Blood cultures are negative to date -Tylenol 1000mg IV q6h scheduled for pain -Oramorph 15mg PO q12hr -Waiting on IR to determine when to remove drain -Soft tissue US around splenic abscess drain shows a small collection of fluid, approx 1cm x 1cm; will manage with abx vs repeat drainage/I&D -Area of induration and swelling measuring 21cm x 11cm w/o erythema, warmth, and cellulitis - not worsened, patient less tender to palpation today (2) ESRD (end stage renal disease) on dialysis ICD Codes: N18.6 - End stage renal disease; Z99.2 - Dependence on renal dialysis Status: Chronic Plan: -Hemodialysis MWF per nephrology recommendations, Dr. Gilbert on board -Avoid nephrotoxic agents (3) Hypertension ICD Codes: I10 - Essential (primary) hypertension Status: Chronic Plan: -Continue home medications: Amlodipine, Coreg, and lisinopril with hold parameters for low blood pressure and/or bradycardia (4) Diabetes ICD Codes: E11.9 - Type 2 diabetes mellitus without complications Status: Chronic Plan: -Levemir 5 units BID -Continue glucose monitoring with SSI - does not have much SSI requirement (5) Peripheral vascular disease ICD Codes: I73.9 - Peripheral vascular disease, unspecified Status: Acute Plan: - Continue clopidogrel 75 mg PO daily (6) Calciphylaxis ICD Codes: E83.59 - Other disorders of calcium metabolism Status: Acute Plan: -Continue thiosulfate per nephrology (7) Tobacco abuse ICD Codes: Z72.0 - Tobacco use Status: Chronic Plan: -Nicotine patch 7 mg (8) Physical deconditioning ICD Codes: R53.81 - Other malaise Status: Chronic Plan: -PT consulted to assist with ambulation and exercises (9) Hyperphosphatemia ICD Codes: E83.39 - Other disorders of phosphorus metabolism Status: Resolved Plan: -Restarted Renvela 3200mg TID on 06/20 -Follow phosphorus level intermittently (10) Chronic Medical Problems Status: Chronic Plan: Diabetic neuropathy: Holding gabapentin 400 mg by mouth 3 times a day due to recent altered mental status. Will resume this medication slowly Hyperlipidemia: Continue Atorvastatin, Pravastatin Anxiety/Depression: Continue sertraline 100 mg by mouth daily, holding trazodone 50 mg by mouth at bedtime due to recent altered mental status. Will resume this medication slowly (11) FEN/DVT PPX/GI PPX/Nursing Orders Plan: Fluids: Oral fluids only, on hemodialysis Electrolytes: Will monitor and replace as needed Nutrition: Renal diet DVT Prophylaxis: Unilateral SCDs, Eliquis 2.5 mg by mouth twice a day PRN Medications Zofran 4 mg IV push every 6 hours when necessary nausea vomiting Oramorph 15mg q12h for pain Tylenol 1g IV q6h for pain Holding Morphine 4 mg IV every 3 hours when necessary breakthrough pain -Vitals Q4h -Monitor I's and O's -Fall precautions -hall monitor with telemetry with continuous vital signs -Activity OOB with assistance -PT to assist with ambulation -Case management consult to assist with discharge disposition (Leena Johnston MD R2) Problem Qualifiers (1) Hypertension: Qualified Codes: I10 - Essential (primary) hypertension (2) Diabetes: Leena Johnston MD R2 Jun 29, 2017 09:41 Harjinder Fernandez MD Jun 30, 2017 20:29
[2017-06-29] MEDS: SERTRALINE HCL 100 MG TAB PO SCH (10:26)
[2017-06-29] MEDS: DOCUSATE SODIUM 50 MG/SENNA 8.6 MG TAB PO SCH ×2 (10:26→20:55)
[2017-06-29] MEDS: MORPHINE SULFATE 15 MG CONTROLLED RELEASE TAB PO SCH ×2 (10:26→20:55)
[2017-06-29] MEDS: SEVELAMER CARBONATE 800 MG TAB PO SCH ×3 (10:27→17:53)
[2017-06-29] MEDS: VITAMIN B CMPLX/VITC/FOLIC AC CAP PO SCH (10:27)
[2017-06-29] MEDS: APIXABAN 2.5 MG TABLET PO SCH ×2 (10:27→20:54)
[2017-06-29] MEDS: PANTOPRAZOLE SOD 40 MG DELAYED RELEASE TAB PO SCH (10:27)
[2017-06-29] MEDS: CARVEDILOL 12.5 MG TAB PO SCH ×2 (10:27→20:55)
[2017-06-29] MEDS: CLOPIDOGREL 75 MG TAB PO SCH (10:27)
[2017-06-29] MEDS: CHOLECALCIFEROL (VIT D3) 5000 UNIT CAP PO SCH (10:28)
[2017-06-29] MEDS: LISINOPRIL 20 MG TAB PO SCH (10:28)
[2017-06-29] MEDS: SODIUM CHLORIDE 0.9% FLUSH 10 ML FLUSH IV FLUSH SCH ×2 (10:29→20:56)
[2017-06-29] MEDS: REMOVE OLD PATCH T-DERMAL SCH (10:29)
[2017-06-29] MEDS: NICOTINE 7 MG/24 HR PATCH T-DERMAL SCH (10:29)
[2017-06-29] MEDS: cefTRIAXone INJ 2,000 MG in SODIUM CHLORIDE 0.9% INJ 100 ML IV SCH (13:31)
--- NOTE | 2017-06-29 15:36 | HHI.NPPN ---
Subjective History of Present Illness Patient is a 47-year-old the female with history of end-stage renal disease, diabetes, blindness, peripheral vascular disease, calciphylaxis, ischemic left foot, previous right BKA who has certainly admitted with the chest pain she's described the pain in the left side radiating to his left shoulder, patient has similar complaints a few weeks ago, and was discharged after workup She goes to dialysis on Saturday, Saturday and Saturday Additional Remarks no acute complaints Review of Systems Gastrointestinal Gastrointestinal: Abdominal Pain Objective Data Data 06/29/17 06/30/17 19:00 07:00 Intake Total 0 ml Balance 0 ml IV Total 0 ml Vital Signs Date Time Temp Pulse Resp B/P (MAP) Pulse Ox O2 Delivery O2 Flow Rate FiO2 06/29/17 15:08 06/29/17 12:06 98.2 68 18 127/59 (81) 98 06/29/17 08:00 98.1 74 18 111/51 (71) 97 06/29/17 07:28 Room Air 06/29/17 04:00 98.2 69 19 136/58 (84) 100 06/29/17 00:00 98.5 69 19 104/49 (67) 96 06/28/17 20:00 74 06/28/17 20:00 98.0 70 19 120/50 (73) 96 06/28/17 19:15 Room Air 2.00 21 06/28/17 15:38 64 -: 06/29/17 0732 06/29/17 0732 Physical Exam General Appearance: Well Developed, Well Nourished Neck Neck Exam: Neck Supple Pulmonary Resp Exam: Clear Bilaterally, Breath Sounds Equal Cardiology CV Exam: Regular Gastrointestinal/Abdomen GI Exam: Soft, Non-Tender, Bowel Sounds Present Extremeties Extremities Exam: Trace Edema Assessment/Plan Problem List: (1) ESRD (end stage renal disease) on dialysis ICD Codes: N18.6 - End stage renal disease; Z99.2 - Dependence on renal dialysis Status: Chronic Plan: HD MWF getting Vanco/Ceftriaxone fluid Enterobacter/Propionibacterium alert responsive doing well drain in place Holiday schedule for HD - HD tomorrow, then Saturday and Saturday (2) Hyperkalemia ICD Codes: E87.5 - Hyperkalemia Status: Acute Plan: improved with HD (3) Calciphylaxis ICD Codes: E83.59 - Other disorders of calcium metabolism Status: Acute Plan: Continue with sodium thiosulfate (4) Peripheral vascular disease ICD Codes: I73.9 - Peripheral vascular disease, unspecified Status: Acute Plan: Had previous procedures done (5) Diabetes ICD Codes: E11.9 - Type 2 diabetes mellitus without complications Status: Chronic Plan: Monitor blood glucose (6) Hypertension ICD Codes: I10 - Essential (primary) hypertension Status: Chronic Plan: Continue to monitor blood pressure (7) Chest pain ICD Codes: R07.9 - Chest pain, unspecified Status: Acute Plan: as above follow VQ scan Problem Qualifiers (1) Diabetes: (2) Hypertension: Qualified Codes: I10 - Essential (primary) hypertension (3) Chest pain: Qualified Codes: R07.9 - Chest pain, unspecified Odilon Mejia MD Jun 29, 2017 15:36
[2017-06-30] VITALS: BP 136/53; PULSE 74; RESP 17; TEMP 97.7; O2SAT 96
[2017-06-30] MEDS: diphenhydrAMINE HCL 25 MG CAP PO PRN ×2 (00:46→06:40)
[2017-06-30] MEDS: ACETAMINOPHEN 1000 MG/100 ML 100 ML IV SCH ×2 (00:47→06:40)
[2017-06-30 04:00] VITALS: BP 121/48; PULSE 66; RESP 17; TEMP 97.6; O2SAT 98
[2017-06-30 07:12] LABS: AUTOMATED NEUTROPHIL # 8.9 TH/MM3 (1.8-7.7); BASOPHIL # 0.1 TH/MM3 (0-0.2); BASOPHIL % 0.9 % (0.0-2.0); EOSINOPHIL # 0.3 TH/MM3 (0-0.4); EOSINOPHIL % 2.2 % (0.0-4.0); HEMATOCRIT 31.7 % (35.0-46.0); HEMO FLAGS DIFF FINAL; LYMPH % 11.4 % (9.0-44.0); LYMPHOCYTE # 1.3 TH/MM3 (1.0-4.8); MEAN CELL VOLUME 95.3 FL (80.0-100.0); MEAN CORPUSCULAR HEMOGLOBIN 30.6 PG (27.0-34.0); MEAN CORPUSCULAR HGB CONC 32.1 % (32.0-36.0); MONO % 8.2 % (0.0-8.0); NEUT % 77.3 % (16.0-70.0); PLATELET COUNT 329 TH/MM3 (150-450); RED BLOOD COUNT 3.33 MIL/MM3 (4.00-5.30); RED CELL DISTRIBUTION WIDTH 17.2 % (11.6-17.2); WHITE BLOOD COUNT 11.5 TH/MM3 (4.0-11.0)
[2017-06-30 07:42] LABS: ALKALINE PHOSPHATASE 106 U/L (45-117); ALT (GPT) 10 U/L (10-53); ANION GAP 13 MEQ/L (5-15); AST (GOT) 11 U/L (15-37); BICARBONATE 23.8 MEQ/L (21.0-32.0); BLOOD UREA NITROGEN 40 MG/DL (7-18); CHLORIDE 93 MEQ/L (98-107); GLOMERULAR FILTRATION RATE 6 ML/MIN (>89); POTASSIUM 4.7 MEQ/L (3.5-5.1); SODIUM (NA) 130 MEQ/L (136-145); TOTAL BILIRUBIN ADULT 0.3 MG/DL (0.2-1.0)
[2017-06-30 08:00] VITALS: BP 78/38; PULSE 66; PULSE 67; RESP 18; TEMP 98.8; O2SAT 88
[2017-06-30] MEDS: INSULIN ASPART SUPPLEMENTAL SCALE SQ SCH ×4 (08:00→20:27)
[2017-06-30] MEDS: SODIUM CHLORIDE 0.9% FLUSH 10 ML FLUSH IV FLUSH SCH ×2 (09:00→23:11)
[2017-06-30] MEDS: INSULIN DETEMIR 100 UNITS/ML VIAL SQ SCH ×2 (09:00→21:00)
[2017-06-30] MEDS: DOCUSATE SODIUM 50 MG/SENNA 8.6 MG TAB PO SCH ×2 (09:44→21:00)
[2017-06-30] MEDS: VITAMIN B CMPLX/VITC/FOLIC AC CAP PO SCH (09:44)
[2017-06-30] MEDS: LACTOBACILLUS ACIDOPHILUS TAB PO SCH ×2 (09:44→23:12)
[2017-06-30] MEDS: SEVELAMER CARBONATE 800 MG TAB PO SCH ×3 (09:45→17:17)
[2017-06-30] MEDS: LISINOPRIL 20 MG TAB PO SCH (09:45)
[2017-06-30] MEDS: CARVEDILOL 12.5 MG TAB PO SCH ×2 (09:45→20:26)
[2017-06-30] MEDS: MORPHINE SULFATE 15 MG CONTROLLED RELEASE TAB PO SCH ×2 (09:45→23:08)
[2017-06-30] MEDS: PANTOPRAZOLE SOD 40 MG DELAYED RELEASE TAB PO SCH (09:45)
[2017-06-30] MEDS: APIXABAN 2.5 MG TABLET PO SCH ×2 (09:45→23:08)
[2017-06-30] MEDS: SERTRALINE HCL 100 MG TAB PO SCH (09:45)
[2017-06-30] MEDS: NICOTINE 7 MG/24 HR PATCH T-DERMAL SCH (09:46)
[2017-06-30] MEDS: POLYETHYLENE GLYCOL 17 GM PKG PO SCH (09:46)
[2017-06-30] MEDS: CHOLECALCIFEROL (VIT D3) 5000 UNIT CAP PO SCH (09:46)
[2017-06-30] MEDS: CLOPIDOGREL 75 MG TAB PO SCH (09:46)
--- NOTE | 2017-06-30 11:06 | HHI.NPPN ---
Subjective History of Present Illness Patient is a 47-year-old the female with history of end-stage renal disease, diabetes, blindness, peripheral vascular disease, calciphylaxis, ischemic left foot, previous right BKA who has certainly admitted with the chest pain she's described the pain in the left side radiating to his left shoulder, patient has similar complaints a few weeks ago, and was discharged after workup She goes to dialysis on Saturday, Saturday and Saturday Additional Remarks no acute complaints, tolerating HD today Review of Systems Gastrointestinal Gastrointestinal: Abdominal Pain Objective Data Data 06/30/17 07/01/17 19:00 07:00 Intake Total 100 ml Balance 100 ml IV Total 100 ml Vital Signs Date Time Temp Pulse Resp B/P (MAP) Pulse Ox O2 Delivery O2 Flow Rate FiO2 06/30/17 08:00 98.8 66 18 78/38 (51) 88 06/30/17 04:00 97.6 66 17 121/48 (72) 98 06/30/17 00:00 97.7 74 17 136/53 (80) 96 06/29/17 20:07 70 06/29/17 20:00 Room Air 06/29/17 20:00 98.1 68 17 106/46 (66) 98 06/29/17 16:00 98.0 68 18 99/46 (63) 97 06/29/17 15:08 06/29/17 12:06 98.2 68 18 127/59 (81) 98 -: 06/30/17 0635 06/30/17 0635 Physical Exam General Appearance: Well Developed, Well Nourished Neck Neck Exam: Neck Supple Pulmonary Resp Exam: Clear Bilaterally, Breath Sounds Equal Cardiology CV Exam: Regular Gastrointestinal/Abdomen GI Exam: Soft, Non-Tender, Bowel Sounds Present Extremeties Extremities Exam: Trace Edema Assessment/Plan Problem List: (1) ESRD (end stage renal disease) on dialysis ICD Codes: N18.6 - End stage renal disease; Z99.2 - Dependence on renal dialysis Status: Chronic Plan: HD MWF outpatient. getting Vanco/Ceftriaxone fluid Enterobacter/Propionibacterium alert responsive doing well drain in place Holiday schedule for HD - seen on HD today, continue next HD Saturday, then Saturday (2) Hyperkalemia ICD Codes: E87.5 - Hyperkalemia Status: Acute Plan: improved with HD (3) Calciphylaxis ICD Codes: E83.59 - Other disorders of calcium metabolism Status: Acute Plan: Continue with sodium thiosulfate (4) Peripheral vascular disease ICD Codes: I73.9 - Peripheral vascular disease, unspecified Status: Acute Plan: Had previous procedures done (5) Diabetes ICD Codes: E11.9 - Type 2 diabetes mellitus without complications Status: Chronic Plan: Monitor blood glucose (6) Hypertension ICD Codes: I10 - Essential (primary) hypertension Status: Chronic Plan: Continue to monitor blood pressure (7) Chest pain ICD Codes: R07.9 - Chest pain, unspecified Status: Acute Plan: as above follow VQ scan Problem Qualifiers (1) Diabetes: (2) Hypertension: Qualified Codes: I10 - Essential (primary) hypertension (3) Chest pain: Qualified Codes: R07.9 - Chest pain, unspecified Odilon Mejia MD Jun 30, 2017 11:06
[2017-06-30] MEDS ORDERED: diphenhydrAMINE HCL 25 MG CAP PO PRN (11:45)
[2017-06-30] MEDS: SODIUM THIOSULFATE INJ 25,000 MG in WATER STERILE FOR INJ 100 ML IV PRN (12:15)
[2017-06-30] MEDS: GELATIN 12 MM/7 MM FOAM TOP PRN (12:15)
[2017-06-30] MEDS: EPOETIN ALFA 10,000 UNITS/ML VIAL IV PUSH PRN (12:15)
--- NOTE | 2017-06-30 12:22 | HHI.FPPN ---
Subjective Remarks Patient receiving dialysis this morning. She has no acute complaints. She had itching overnight relieved with Benadryl. She reports that she has chronic itching and this is not a new problem since being in the hospital. She has some abdominal pain that is unchanged in the left side of her abdomen. She has no chest pain or shortness of breath. She has no confusion this morning and is awake and alert. She has no calf swelling or tenderness. (Benedict Torres MD R3) Objective Vitals Vital Signs Date Time Temp Pulse Resp B/P (MAP) Pulse Ox O2 Delivery O2 Flow Rate FiO2 06/30/17 08:00 98.8 66 18 78/38 (51) 88 06/30/17 04:00 97.6 66 17 121/48 (72) 98 06/30/17 00:00 97.7 74 17 136/53 (80) 96 06/29/17 20:07 70 06/29/17 20:00 Room Air 06/29/17 20:00 98.1 68 17 106/46 (66) 98 06/29/17 16:00 98.0 68 18 99/46 (63) 97 06/29/17 15:08 I/O 06/29/17 06/29/17 06/29/17 06/30/17 06/30/17 06/30/17 07:00 15:00 23:00 07:00 15:00 23:00 Intake Total 200 ml 0 ml 1180 ml 200 ml 100 ml Output Total 25 ml 30 ml Balance 175 ml 0 ml 1180 ml 170 ml 100 ml Intake Oral 100 ml 1180 ml 100 ml IV Total 100 ml 0 ml 100 ml 100 ml Output Urine Total 0 ml Drainage Total 25 ml 30 ml # Voids 0 0 0 # Bowel Movements 0 2 0 (Benedict Torres MD R3) Result Diagram: 06/30/17 0635 06/30/17 0635 Objective Remarks General: Sitting up in bed receiving dialysis, in no acute distress Skin: 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 Poor dentition. MMM. Neck: Supple, no lymphadenopathy, no thyromegaly CV: RRR, no murmurs, rubs, or gallops, no edema. Lungs: CTAB, no wheezing, rales, or rhonchi. Abdomen: Soft, nontender in lower quadrants, but tender in left back around drainage site; no guarding; normal BS. Drain site without drainage. BACK: Spleen abscess drain in place at left lateral costal margin, swelling much improved and almost gone, Scant serosanguineous fluid from drain. Neuro: Alert and oriented, EOMI, PERRLA, CN intact. Procedures splenic abscess drainage by IR 06/20/17 (Benedict Torres MD R3) A/P Assessment and Plan 47-year-old female with a past medical history of end-stage renal disease on HD MWF, diabetes, hypertension, PAD, recently discharged from the hospital on 03 June where she was found to have an acute splenic infarction, presented with a one-day history of chest pain and left shoulder pain as well as elevated potassium and creatinine. She was admitted to the hospital for dialysis and ACS rule out and was found to have a splenic abscess identified on CTA performed on 06/19/17. Splenic abscess drained placed by IR on 06/21. ID is assisting with antibiotic management. She is currently on Rocephin IV and Vancomycin IV. IR to remove drain when no longer draining fluid. Discharge Planning Pending management of splenic abscess, stable vital signs, safe discharge. (Benedict Torres MD R3) Attending Attestation Case reviewed and discussed with the resident team. Agree with plan of care as discussed with me and documented in the resident note. (Harjinder Fernandez MD) Problem List: (1) Splenic abscess ICD Codes: D73.3 - Abscess of spleen Status: Acute Plan: CTA performed on 06/19 showed interval development of air-containing fluid collection in the spleen measuring up to 6.9 x 3.0 cm in maximal dimension with subcapsular fluid in region of prior splenic infarction, concerning for splenic abscess. No significant aortic or mesenteric stenoses identified. Interventional radiology drained abscess 06/20/17. Cultures of drained abscess fluid growing propionibacterium and collins-sensitive Enterobacter cloacae. Blood cultures negative. Soft tissue US around splenic abscess drain shows a small collection of fluid, approx 1cm x 1cm. - ID on board - continue vancomycin for previously diagnosed bacteremia - Continue Rocephin IV started on 06/24/17 - Tylenol 650 PO q6hrs. - Oramorph 15mg PO q12hr - Waiting on IR to determine when to remove drain (2) ESRD (end stage renal disease) on dialysis ICD Codes: N18.6 - End stage renal disease; Z99.2 - Dependence on renal dialysis Status: Chronic Plan: -Hemodialysis MWF per nephrology recommendations, Dr. Gilbert on board. She did receive dialysis today as well. -Avoid nephrotoxic agents - Monitor electrolytes - Continue Sevelamer, monitor calcium/phosphate (3) Hypertension ICD Codes: I10 - Essential (primary) hypertension Status: Chronic Plan: -Continue home medications: Amlodipine (on hold for some low pressures today), Coreg, and lisinopril with hold parameters for low blood pressure and/ or bradycardia (4) Diabetes ICD Codes: E11.9 - Type 2 diabetes mellitus without complications Status: Chronic Plan: -Levemir 5 units BID -Continue glucose monitoring with SSI - does not have much SSI requirement (5) Peripheral vascular disease ICD Codes: I73.9 - Peripheral vascular disease, unspecified Status: Acute Plan: - Continue clopidogrel 75 mg PO daily (6) Calciphylaxis ICD Codes: E83.59 - Other disorders of calcium metabolism Status: Acute Plan: -Continue thiosulfate per nephrology (7) Tobacco abuse ICD Codes: Z72.0 - Tobacco use Status: Chronic Plan: -Nicotine patch 7 mg (8) Physical deconditioning ICD Codes: R53.81 - Other malaise Status: Chronic Plan: -PT consulted to assist with ambulation and exercises (9) Hyperphosphatemia ICD Codes: E83.39 - Other disorders of phosphorus metabolism Status: Resolved Plan: -Restarted Renvela 3200mg TID on 06/20 -Follow phosphorus level intermittently (10) Chronic Medical Problems Status: Chronic Plan: Diabetic neuropathy: Holding gabapentin 400 mg by mouth 3 times a day due to recent altered mental status. Will resume this medication slowly Hyperlipidemia: Continue Atorvastatin, Pravastatin Anxiety/Depression: Continue sertraline 100 mg by mouth daily, holding trazodone 50 mg by mouth at bedtime due to recent altered mental status. 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
[2017-06-30] MEDS: cefTRIAXone INJ 2,000 MG in SODIUM CHLORIDE 0.9% INJ 100 ML IV SCH (14:00)
[2017-06-30 16:00] VITALS: BP 84/42; PULSE 73; RESP 18; TEMP 98.8; O2SAT 92
[2017-06-30] MEDS: ACETAMINOPHEN 325 MG TAB PO SCH ×2 (17:17→23:08)
[2017-06-30 20:00] VITALS: BP_SYST 78; BP_SYST 98; BP_DIAS 40; BP_DIAS 54; PULSE 69; RESP 17; TEMP 98.4; O2SAT 97
[2017-06-30 20:06] VITALS: PULSE 65
[2017-06-30] MEDS: REMOVE OLD PATCH T-DERMAL SCH (21:00)
[2017-07-01] VITALS (9 sets, daily range): BP systolic 87–121; BP diastolic 42–55; PULSE 65–76; RESP 16–20; TEMP 97.4–98.5; O2SAT 91–100
[2017-07-01] MEDS: ACETAMINOPHEN 325 MG TAB PO SCH ×3 (06:00→18:27)
[2017-07-01 07:40] LABS: HEMATOCRIT 35.2 % (35.0-46.0); MEAN CELL VOLUME 94.4 FL (80.0-100.0); MEAN CORPUSCULAR HGB CONC 31.8 % (32.0-36.0); PLATELET COUNT 363 TH/MM3 (150-450); RED BLOOD COUNT 3.73 MIL/MM3 (4.00-5.30); RED CELL DISTRIBUTION WIDTH 17.2 % (11.6-17.2); REVIEW FLAG FINAL; WHITE BLOOD COUNT 12.7 TH/MM3 (4.0-11.0)
[2017-07-01] MEDS: INSULIN ASPART SUPPLEMENTAL SCALE SQ SCH ×4 (08:00→21:43)
[2017-07-01 08:10] LABS: BICARBONATE 24.4 MEQ/L (21.0-32.0); POTASSIUM 4.3 MEQ/L (3.5-5.1)
[2017-07-01] MEDS: CARVEDILOL 12.5 MG TAB PO SCH ×2 (08:48→21:05)
[2017-07-01] MEDS: POLYETHYLENE GLYCOL 17 GM PKG PO SCH (08:48)
[2017-07-01] MEDS: APIXABAN 2.5 MG TABLET PO SCH ×2 (08:49→21:05)
[2017-07-01] MEDS: LACTOBACILLUS ACIDOPHILUS TAB PO SCH ×2 (08:49→21:05)
[2017-07-01] MEDS: VITAMIN B CMPLX/VITC/FOLIC AC CAP PO SCH (08:49)
[2017-07-01] MEDS: MORPHINE SULFATE 15 MG CONTROLLED RELEASE TAB PO SCH ×2 (08:50→21:05)
[2017-07-01] MEDS: DOCUSATE SODIUM 50 MG/SENNA 8.6 MG TAB PO SCH ×2 (08:51→21:00)
[2017-07-01] MEDS: LISINOPRIL 20 MG TAB PO SCH (08:51)
[2017-07-01] MEDS: CHOLECALCIFEROL (VIT D3) 5000 UNIT CAP PO SCH (08:51)
[2017-07-01] MEDS: CLOPIDOGREL 75 MG TAB PO SCH (08:51)
[2017-07-01] MEDS: PANTOPRAZOLE SOD 40 MG DELAYED RELEASE TAB PO SCH (08:51)
[2017-07-01] MEDS: SEVELAMER CARBONATE 800 MG TAB PO SCH ×3 (08:52→18:27)
[2017-07-01] MEDS: SERTRALINE HCL 100 MG TAB PO SCH (08:52)
[2017-07-01] MEDS: NICOTINE 7 MG/24 HR PATCH T-DERMAL SCH (08:53)
[2017-07-01] MEDS: SODIUM CHLORIDE 0.9% FLUSH 10 ML FLUSH IV FLUSH SCH ×2 (08:55→21:00)
[2017-07-01] MEDS: INSULIN DETEMIR 100 UNITS/ML VIAL SQ SCH ×2 (09:00→21:42)
--- NOTE | 2017-07-01 12:06 | RADRPT ---
EXAM DATE/TIME: 07/01/2017 11:40 [facility] COMPARISON: CTA ABDOMEN & PELVIS W 3D RECON, June 19, 2017, 8:14. INDICATIONS : Evaluate abscess. ORAL CONTRAST: No oral contrast ingested. RADIATION DOSE: 16.71 CTDIvol (mGy) MEDICAL HISTORY : Cardiovascular disease. Hypertension. Renal failure, chronic.Diabetes. SURGICAL HISTORY : Right lower leg amputated. ENCOUNTER: Initial ACUITY: 1 day PAIN SCALE: 5/10 LOCATION: Left abdomen TECHNIQUE: Volumetric scanning of the abdomen was performed. Using automated exposure control and adjustment of the mA and/or kV according to patient size, radiation dose was kept as low as reasonably achievable to obtain optimal diagnostic quality images. DICOM format image data is available electronically for review and comparison. FINDINGS: LOWER LUNGS: Minimal patchy groundglass opacities at the lung bases consistent with atelectasis. LIVER: Homogeneous density without lesion. There is no dilation of the biliary tree. Gallbladder is surgica lly absent. SPLEEN: Interval retraction of the drainage catheter in the spleen which now resides in the subcutaneous adip ose tissue. Marked interval improvement in the air containing subcapsular splenic fluid collection wh ich now measures approximately 2.3 x 3.9 x 2.2 cm. PANCREAS: Within normal limits. Remainder of the spleen is grossly unremarkable. KIDNEYS: Small atrophic end-stage appearing kidneys. ADRENAL GLANDS: Within normal limits. AORTA/RETROPERITONEAL: There is no aneurysm or lymphadenopathy. BOWEL/MESENTERY: The stomach and visualized small and large bowel demonstrate no abnormality. MUSCULOSKELETAL: Within normal limits for patient age. CONCLUSION: 1. Interval retraction of the splenic drainage catheter which now resides in the subcutaneous adipose tissue. 2. Marked interval improvement of subcapsular splenic air containing fluid collection now measuring a pproximately 2.3 x 3.9 x 2.2 cm. 3. Remainder of the exam is unchanged. Capo Liu MD on July 01, 2017 at 12:00 Board Certified Radiologist. This report was verified electronically.
[2017-07-01] MEDS: cefTRIAXone INJ 2,000 MG in SODIUM CHLORIDE 0.9% INJ 100 ML IV SCH (13:21)
--- NOTE | 2017-07-01 13:22 | HHI.NPPN ---
Subjective History of Present Illness Patient is a 47-year-old the female with history of end-stage renal disease, diabetes, blindness, peripheral vascular disease, calciphylaxis, ischemic left foot, previous right BKA who has certainly admitted with the chest pain she's described the pain in the left side radiating to his left shoulder, patient has similar complaints a few weeks ago, and was discharged after workup She goes to dialysis on Saturday, Saturday and Saturday Additional Remarks no acute complaints, tolerating HD today Review of Systems Gastrointestinal Gastrointestinal: Abdominal Pain Objective Data Data Vital Signs Date Time Temp Pulse Resp B/P (MAP) Pulse Ox O2 Delivery O2 Flow Rate FiO2 07/01/17 12:53 98.5 76 20 92/54 (67) 98 07/01/17 08:04 98.4 74 20 87/42 (57) 98 07/01/17 07:45 Room Air 07/01/17 04:00 98.5 70 17 102/44 (63) 97 07/01/17 04:00 Room Air 07/01/17 00:00 Room Air 07/01/17 00:00 98.5 74 18 102/49 (66) 97 06/30/17 20:06 65 06/30/17 20:00 Nasal Cannula 2.00 06/30/17 20:00 98.4 69 17 78/40 (53) 97 98/54 (69) 06/30/17 16:00 98.8 73 18 84/42 (56) 92 -: 07/01/17 0700 07/01/17 0700 Physical Exam General Appearance: Well Developed, Well Nourished Neck Neck Exam: Neck Supple Pulmonary Resp Exam: Clear Bilaterally, Breath Sounds Equal Cardiology CV Exam: Regular Gastrointestinal/Abdomen GI Exam: Soft, Non-Tender, Bowel Sounds Present Extremeties Extremities Exam: Trace Edema Extremeties Remarks ischemic l foot Assessment/Plan Problem List: (1) ESRD (end stage renal disease) on dialysis ICD Codes: N18.6 - End stage renal disease; Z99.2 - Dependence on renal dialysis Status: Chronic Plan: HD MWF outpatient. getting Ceftriaxone fluid Enterobacter/Propionibacterium alert responsive doing well drain in place Holiday schedule for HD - next HD Saturday, then Saturday (2) Hyperkalemia ICD Codes: E87.5 - Hyperkalemia Status: Acute Plan: improved with HD (3) Calciphylaxis ICD Codes: E83.59 - Other disorders of calcium metabolism Status: Acute Plan: Continue with sodium thiosulfate (4) Peripheral vascular disease ICD Codes: I73.9 - Peripheral vascular disease, unspecified Status: Acute Plan: Had previous procedures done (5) Diabetes ICD Codes: E11.9 - Type 2 diabetes mellitus without complications Status: Chronic Plan: Monitor blood glucose (6) Hypertension ICD Codes: I10 - Essential (primary) hypertension Status: Chronic Plan: Continue to monitor blood pressure (7) Chest pain ICD Codes: R07.9 - Chest pain, unspecified Status: Acute Plan: as above follow VQ scan Problem Qualifiers (1) Diabetes: (2) Hypertension: Qualified Codes: I10 - Essential (primary) hypertension (3) Chest pain: Qualified Codes: R07.9 - Chest pain, unspecified Gerri Gilbert MD Jul 01, 2017 13:21
--- NOTE | 2017-07-01 14:05 | HHI.IDPN ---
Subjective Subjective Remarks 47 y/o female with ESRD, on HD MWF, on Rx for Enterococcal and Kleb sepsis, being Rxd for possible endocarditis, found to have splenic infarct during last admission. Rx supposed to toña completed this month. Readmitted for CP and L shoulder pain. Cardiac work-up negative. Found now to have splenic abscess. has been afebrile. WBC normal. BC negative Notes reviewed [place] ok HD yesterday CT - shows the catheter not in correct position? Still with output Still C/O pain, stable C/S from the drain with Propionobacterium and Enterobacter Antibiotics Vanco Rocephin Current Medications Medications (Trade) Dose Ordered Sig/Jen Route Start Time Stop Time Status Last Admin Sodium Chloride 1,000 ml @ 0 mls/hr Q0M PRN OTHER 06/17/17 13:27 (Heparin Inj) 8,000 units UNSCH PRN IV FLUSH 06/17/17 13:30 Sodium Chloride 1,000 ml @ 200 mls/hr Q5H PRN IV 06/17/17 13:27 Sodium Chloride 1,000 ml @ 0 mls/hr Q0M PRN OTHER 06/17/17 13:27 (Mannitol Inj) 12.5 gm UNSCH PRN IV 06/17/17 13:30 Albumin Human 100 ml @ 60 mls/hr UNSCH PRN IV 06/17/17 13:30 06/26/17 11:55 (NS Flush) 5 ml UNSCH PRN IV FLUSH 06/17/17 13:30 (Heparin Inj) UNSCH PRN .XX 06/17/17 13:30 (Gentamicin (Dialysis) Inj) 20 mg UNSCH PRN OTHER 06/17/17 13:30 (Zofran Inj) 4 mg UNSCH PRN IV PUSH 06/17/17 13:30 (Nitrostat Sl) 0.4 mg UNSCH PRN SL 06/17/17 13:30 (Catapres) 0.1 mg UNSCH PRN PO 06/17/17 13:30 (Epogen Inj) 4,000 units UNSCH PRN IV PUSH 06/17/17 13:30 06/28/17 16:30 (Gelfoam 12 Mm/7 Mm Top) 1 foam UNSCH PRN TOP 06/17/17 13:30 06/28/17 16:30 Sodium Thiosulfate 51285 mg/Sterile Water 200 ml @ 150 mls/hr WITH DIALYSIS PRN IV 06/17/17 13:30 06/26/17 12:56 (NS Flush) 2 ml UNSCH PRN IV FLUSH 06/17/17 14:45 (NS Flush) 2 ml BID IV FLUSH 06/17/17 21:00 06/28/17 20:05 (Zofran Inj) 4 mg Q6H PRN IVP 06/17/17 18:00 (Narcan Inj) 0.4 mg UNSCH PRN IV PUSH 06/17/17 14:45 (Areli-Colace) 2 tab BID PO 06/17/17 21:00 06/26/17 21:25 (D50w (Vial) Inj) 50 ml UNSCH PRN IV PUSH 06/17/17 15:00 (Glucagon Inj) 1 mg UNSCH PRN OTHER 06/17/17 15:00 (NovoLOG SUPPLEMENTAL SCALE) 1 ACHS SLIDING SCALE SQ 06/17/17 17:00 06/28/17 21:38 (Coreg) 25 mg BID PO 06/17/17 21:00 06/28/17 20:06 (Vitamin D3) 5,000 units DAILY PO 06/18/17 09:00 06/28/17 09:46 (Zoloft) 100 mg DAILY PO 06/18/17 09:00 06/28/17 09:46 (Nephrocaps) 1 cap DAILY PO 06/18/17 09:00 06/28/17 09:44 (Protonix) 40 mg DAILY PO 06/17/17 15:00 06/28/17 09:46 (Habitrol 7 Mg Patch.24 Hr) 1 patch DAILY T-DERMAL 06/18/17 09:00 06/28/17 09:45 Miscellaneous Information 1 HS T-DERMAL 06/17/17 21:00 06/28/17 20:07 (Desyrel) 50 mg HS PO 06/19/17 21:00 Future Hold 06/20/17 21:24 (Miralax) 17 gm DAILY PO 06/20/17 09:00 06/27/17 10:28 (Levemir Inj) 5 units BID SQ 06/20/17 21:00 06/28/17 20:05 (Renvela) 3,200 mg TIDPC PO 06/20/17 18:30 06/28/17 09:47 Pharmacy Profile Note 0 ml @ 0 mls/hr UNSCH OTHER 06/22/17 13:00 (Plavix) 75 mg DAILY PO 06/23/17 09:00 06/28/17 09:46 (Eliquis) 2.5 mg BID PO 06/22/17 21:00 06/28/17 20:07 Acetaminophen 100 ml @ 400 mls/hr Q6H IV 06/23/17 12:45 06/29/17 05:34 (Norvasc) 5 mg DAILY PO 06/24/17 09:00 06/28/17 09:44 (Prinivil) 20 mg DAILY PO 06/24/17 09:00 06/28/17 09:46 Vancomycin HCl 1000 mg/Sodium Chloride 250 ml @ 250 mls/hr MoWeFr@1700 IV 06/24/17 17:00 06/28/17 16:28 Ceftriaxone Sodium 2000 mg/ Sodium Chloride 100 ml @ 200 mls/hr Q24H IV 06/24/17 14:00 06/27/17 13:32 (Lactinex) 1 tab Q12HR PO 06/26/17 09:00 06/28/17 20:06 (Oramorph Sr) 15 mg Q12HR PO 06/26/17 12:15 06/28/17 20:06 Lines PIV Past Medical History ESRD, on dialysis Saturday and Saturday Hypertension CAD Hyperlipidemia Diabetes Hepatitis C Legally blind Prior miscarriage PVD Calciphylaxis Past Surgical History Cholecystectomy R UE AV fistula Right nephrectomy Dental extraction Tonsillectomy R BKA Allergies: Coded Allergies: codeine (Verified Allergy, Severe, HYPERACTIVITY &ITCH, 06/17/17) iodine (Verified Allergy, Severe, TOPICAL/ITCH, 06/17/17) potassium iodide (Verified Allergy, Severe, TOPICAL/ITCH, 06/17/17) povidone-iodine (Verified Allergy, Severe, TOPICAL/ITCH, 06/17/17) sodium iodide (Verified Allergy, Severe, TOPICAL/ITCH, 06/17/17) sodium iodide (Verified Allergy, Severe, TOPICAL/ITCH, 06/17/17) iohexol (Verified Allergy, Intermediate, HIVES, 06/17/17) Pork/Porcine Containing Products (Verified Allergy, Unknown, 06/17/17) penicillin G (Verified Allergy, Unknown, 06/17/17) Objective . Vital Signs Date Time Temp Pulse Resp B/P (MAP) Pulse Ox O2 Delivery O2 Flow Rate FiO2 07/01/17 12:53 98.5 76 20 92/54 (67) 98 07/01/17 08:04 98.4 74 20 87/42 (57) 98 07/01/17 07:45 Room Air 07/01/17 04:00 98.5 70 17 102/44 (63) 97 07/01/17 04:00 Room Air 07/01/17 00:00 Room Air 07/01/17 00:00 98.5 74 18 102/49 (66) 97 06/30/17 20:06 65 06/30/17 20:00 Nasal Cannula 2.00 06/30/17 20:00 98.4 69 17 78/40 (53) 97 98/54 (69) 06/30/17 16:00 98.8 73 18 84/42 (56) 92 . Laboratory Tests Test 06/30/17 06:35 07/01/17 07:00 White Blood Count 11.5 TH/MM3 12.7 TH/MM3 Red Blood Count 3.33 MIL/MM3 3.73 MIL/MM3 Hemoglobin 10.2 GM/DL 11.2 GM/DL Hematocrit 31.7 % 35.2 % Mean Corpuscular Volume 95.3 FL 94.4 FL Mean Corpuscular Hemoglobin 30.6 PG 30.0 PG Mean Corpuscular Hemoglobin Concent 32.1 % 31.8 % Red Cell Distribution Width 17.2 % 17.2 % Platelet Count 329 TH/MM3 363 TH/MM3 Mean Platelet Volume 8.5 FL 8.1 FL Neutrophils (%) (Auto) 77.3 % Lymphocytes (%) (Auto) 11.4 % Monocytes (%) (Auto) 8.2 % Eosinophils (%) (Auto) 2.2 % Basophils (%) (Auto) 0.9 % Neutrophils # (Auto) 8.9 TH/MM3 Lymphocytes # (Auto) 1.3 TH/MM3 Monocytes # (Auto) 0.9 TH/MM3 Eosinophils # (Auto) 0.3 TH/MM3 Basophils # (Auto) 0.1 TH/MM3 CBC Comment DIFF FINAL Differential Comment Laboratory Tests Test 06/30/17 06:35 07/01/17 07:00 Blood Urea Nitrogen 40 MG/DL 34 MG/DL Creatinine 7.12 MG/DL 5.91 MG/DL Random Glucose 115 MG/DL 97 MG/DL Total Protein 7.8 GM/DL Albumin 3.3 GM/DL Calcium Level 9.5 MG/DL 9.9 MG/DL Alkaline Phosphatase 106 U/L Aspartate Amino Transf (AST/SGOT) 11 U/L Alanine Aminotransferase (ALT/SGPT) 10 U/L Total Bilirubin 0.3 MG/DL Sodium Level 130 MEQ/L 134 MEQ/L Potassium Level 4.7 MEQ/L 4.3 MEQ/L Chloride Level 93 MEQ/L 97 MEQ/L Carbon Dioxide Level 23.8 MEQ/L 24.4 MEQ/L Anion Gap 13 MEQ/L 13 MEQ/L Estimat Glomerular Filtration Rate 6 ML/MIN 8 ML/MIN Phosphorus Level 4.0 MG/DL Imaging RADIOLOGY STUDIES/FILMS REVIEWED Last Impressions Soft Tissue Ultrasound 06/26/17 0000 Signed Impressions: Service Date/Time: Monday, June 26, 2017 17:11 - CONCLUSION: Small fluid collection around the drain Vamsi Keenan MD FACR Chest X-Ray 06/23/17 0000 Signed Impressions: Service Date/Time: Friday, June 23, 2017 13:55 - CONCLUSION: 1. Hypoinflation with worsening bibasilar airspace disease. Possible associated effusions. 2. Cardiomegaly. Dennis Trimble MD Brain MRI 06/22/17 0000 Signed Impressions: Service Date/Time: Thursday, June 22, 2017 14:51 - CONCLUSION: Negative exam. Dennis Trimble MD Abscess Drainage CT 06/20/17 0000 Signed Impressions: Service Date/Time: June 10:20 - CONCLUSION: Uncomplicated CT guided drainage of the left upper quadrant perisplenic fluid collection. Samples were saved and sent to lab for Gram stain and cultures. Abhijit De Los Santos MD Abdomen/Pelvis CT 06/18/17 0000 Signed Impressions: Service Date/Time: Monday, June 19, 2017 08:14 - CONCLUSION: 1. Interval development of air-containing fluid collection in the spleen measuring up to 6.9 x 3.0 cm in maximal dimension with subcapsular fluid in region of prior splenic infarction. This finding is concerning for splenic abscess. 2. Mild bibasilar ground glass opacities and platelike air space consolidation in the left lower lobe, likely atelectasis. 3. No significant aortic or mesenteric stenosis as questioned. 4. End-stage appearing kidneys. 5. Trace place pelvic free fluid. Findings were personally discussed with Dr. Johnston. Capo Liu MD Abdomen X-Ray 06/18/17 0000 Signed Impressions: Service Date/Time: Sunday, June 18, 2017 13:38 - CONCLUSION: 1. No acute abdominal abnormality is identified. There are no findings to indicate obstruction. 2. Severe renal artery vascular calcification. Abhijit De Los Santos MD Lung Scan-VQ Nuclear Medicine 06/17/17 0000 Signed Impressions: Service Date/Time: Saturday, June 17, 2017 16:03 - CONCLUSION: 1. Central trapping on the ventilatory images. Nonspecific but can be seen in COPD. 2. Otherwise, low probability scan for pulmonary embolus. Dennis Trimble MD Physical Exam GENERAL: awake and alert, NAD SKIN: Warm and dry. Has superficial round ulcers on face, with some crusting and some in her UE HEAD: Atraumatic. Normocephalic. No temporal wasting, or tenderness. EYES: [place] conjunctiva. No petechia or hemorrhage. Pupils equal, round and reactive to light. Extraocular movements full and intact. No scleral icterus. EARS, NOSE AND THROAT: Nose without bleeding or purulent nasal discharge. Mucous membranes pink and moist. No oral lesions noted. She is edentulous. NECK: Trachea midline. Supple and not tender, no meningeal signs CARDIOVASCULAR: Regular rate and rhythm. No murmurs, rubs or gallops heard RESPIRATORY: Clear to auscultation. Breath sounds equal bilaterally. No rales , wheezing or rhonchi ABDOMEN: Soft, nondistended, with diffuse abdominal tenderness, but no guarding or rebound. Bowel sounds present and normoactive. No organomegaly. EXTREMITIES: No clubbing, cyanosis, or edema. No joint effusion, has good ROM. No calf tenderness. Well perfused and warm. RUE AVF with no evidence of infection. S/P RBKA, well healed stump NEUROLOGICAL: Awake and alert. Cranial nerves grossly intact. Motor grossly within normal limits. PSYCHIATRIC: Normal affect, calm and cooperative. LINE: No evidence of infection Assessment & Plan Remarks IMPRESSION Enterococcal and Klebsiella bacteremia, on Rx for possible endocarditis, with splenic infarct - MARILU no vegetation done during last admission Splenic abscess, developed while on Rx for bacteremia - C/S with different bacteria: Enterobacter and Propionobacterium ESRD, on HD MWF Hx IVDU, ?continued use of IVD Has skin lesions which according to patient is from calciphylaxis, ?popping or picking due to drugs RECOMMENDATION Stop IV Vancomycin PO Clinda Continue Rocephin ?reposition the drain Monitor progress Carrie Sanchez MD Jul 01, 2017 14:05
--- NOTE | 2017-07-01 14:48 | HHI.FPPN ---
Subjective Remarks Ms Laguerre had no acute events overnight. Her drain is still hurting and she hasn 't been very hungry. We explained the only reason we have to keep her in the hospital right now is the drain. Denies CP, SOB, N/V/D and DVT pain. (Jaylan Grey MD R1) Objective Vitals Vital Signs Date Time Temp Pulse Resp B/P (MAP) Pulse Ox O2 Delivery O2 Flow Rate FiO2 07/01/17 12:53 98.5 76 20 92/54 (67) 98 07/01/17 08:04 98.4 74 20 87/42 (57) 98 07/01/17 07:45 Room Air 07/01/17 04:00 98.5 70 17 102/44 (63) 97 07/01/17 04:00 Room Air 07/01/17 00:00 Room Air 07/01/17 00:00 98.5 74 18 102/49 (66) 97 06/30/17 20:06 65 06/30/17 20:00 Nasal Cannula 2.00 06/30/17 20:00 98.4 69 17 78/40 (53) 97 98/54 (69) 06/30/17 16:00 98.8 73 18 84/42 (56) 92 I/O 06/30/17 06/30/17 06/30/17 07/01/17 07/01/17 07/01/17 07:00 15:00 23:00 07:00 15:00 23:00 Intake Total 200 ml 100 ml 240 ml 700 ml Output Total 30 ml 4500 ml 600 ml Balance 170 ml -4400 ml 240 ml 100 ml Intake Oral 100 ml 240 ml 700 ml IV Total 100 ml 100 ml Output Urine Total 0 ml 600 ml Drainage Total 30 ml Hemodialysis 4500 ml # Voids 0 0 # Bowel Movements 0 0 0 (Jaylan Grey MD R1) Result Diagram: 07/01/17 0700 07/01/17 0700 Imaging Last [address] 07/01/17 0000 Signed Impressions: Service Date/Time: Saturday, July 01, 2017 11:40 - CONCLUSION: 1. Interval retraction of the splenic drainage catheter which now resides in the subcutaneous adipose tissue. 2. Marked interval improvement of subcapsular splenic air containing fluid collection now measuring approximately 2.3 x 3.9 x 2.2 cm. 3. Remainder of the exam is unchanged. 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 Poor dentition. MMM. Neck: Supple, no lymphadenopathy, no thyromegaly CV: RRR, no murmurs, rubs, or gallops, no edema. Lungs: CTAB, no wheezing, rales, or rhonchi. Abdomen: Soft, nontender in lower quadrants, but tender in left back around drainage site; no guarding; normal BS. Drain site without drainage. BACK: Spleen abscess drain in place at left lateral costal margin, swelling much improved and almost gone, Scant serosanguineous fluid from drain. Neuro: Alert and oriented, EOMI, PERRLA, CN intact. Procedures splenic abscess drainage by IR 06/20/17 Medications and IVs Current Medications Medications (Trade) Dose Ordered Sig/Jen Route Start Time Stop Time Status Last Admin Sodium Chloride 1,000 ml @ 0 mls/hr Q0M PRN OTHER 06/17/17 13:27 06/30/17 12:15 (Heparin Inj) 8,000 units UNSCH PRN IV FLUSH 06/17/17 13:30 Sodium Chloride 1,000 ml @ 200 mls/hr Q5H PRN IV 06/17/17 13:27 Sodium Chloride 1,000 ml @ 0 mls/hr Q0M PRN OTHER 06/17/17 13:27 (Mannitol Inj) 12.5 gm UNSCH PRN IV 06/17/17 13:30 Albumin Human 100 ml @ 60 mls/hr UNSCH PRN IV 06/17/17 13:30 06/26/17 11:55 (NS Flush) 5 ml UNSCH PRN IV FLUSH 06/17/17 13:30 (Heparin Inj) UNSCH PRN .XX 06/17/17 13:30 (Gentamicin (Dialysis) Inj) 20 mg UNSCH PRN OTHER 06/17/17 13:30 (Zofran Inj) 4 mg UNSCH PRN IV PUSH 06/17/17 13:30 (Nitrostat Sl) 0.4 mg UNSCH PRN SL 06/17/17 13:30 (Catapres) 0.1 mg UNSCH PRN PO 06/17/17 13:30 (Epogen Inj) 4,000 units UNSCH PRN IV PUSH 06/17/17 13:30 06/30/17 12:15 (Gelfoam 12 Mm/7 Mm Top) 1 foam UNSCH PRN TOP 06/17/17 13:30 06/30/17 12:15 Sodium Thiosulfate 48600 mg/Sterile Water 200 ml @ 150 mls/hr WITH DIALYSIS PRN IV 06/17/17 13:30 06/30/17 12:15 (NS Flush) 2 ml UNSCH PRN IV FLUSH 06/17/17 14:45 (NS Flush) 2 ml BID IV FLUSH 06/17/17 21:00 07/01/17 08:55 (Zofran Inj) 4 mg Q6H PRN IVP 06/17/17 18:00 (Narcan Inj) 0.4 mg UNSCH PRN IV PUSH 06/17/17 14:45 (Areli-Colace) 2 tab BID PO 06/17/17 21:00 07/01/17 08:51 (D50w (Vial) Inj) 50 ml UNSCH PRN IV PUSH 06/17/17 15:00 (Glucagon Inj) 1 mg UNSCH PRN OTHER 06/17/17 15:00 (NovoLOG SUPPLEMENTAL SCALE) 1 ACHS SLIDING SCALE SQ 06/17/17 17:00 07/01/17 13:18 (Coreg) 25 mg BID PO 06/17/17 21:00 06/30/17 09:45 (Vitamin D3) 5,000 units DAILY PO 06/18/17 09:00 07/01/17 08:51 (Zoloft) 100 mg DAILY PO 06/18/17 09:00 07/01/17 08:52 (Nephrocaps) 1 cap DAILY PO 06/18/17 09:00 07/01/17 08:49 (Protonix) 40 mg DAILY PO 06/17/17 15:00 07/01/17 08:51 (Habitrol 7 Mg Patch.24 Hr) 1 patch DAILY T-DERMAL 06/18/17 09:00 07/01/17 08:53 Miscellaneous Information 1 HS T-DERMAL 06/17/17 21:00 06/30/17 21:00 (Desyrel) 50 mg HS PO 06/19/17 21:00 Future Hold 06/20/17 21:24 (Miralax) 17 gm DAILY PO 06/20/17 09:00 06/30/17 09:46 (Levemir Inj) 5 units BID SQ 06/20/17 21:00 06/30/17 09:00 (Renvela) 3,200 mg TIDPC PO 06/20/17 18:30 07/01/17 13:17 Pharmacy Profile Note 0 ml @ 0 mls/hr UNSCH OTHER 06/22/17 13:00 (Plavix) 75 mg DAILY PO 06/23/17 09:00 07/01/17 08:51 (Eliquis) 2.5 mg BID PO 06/22/17 21:00 07/01/17 08:49 (Norvasc) 5 mg DAILY PO 06/24/17 09:00 Future Hold 06/30/17 09:46 (Prinivil) 20 mg DAILY PO 06/24/17 09:00 06/30/17 09:45 Ceftriaxone Sodium 2000 mg/ Sodium Chloride 100 ml @ 200 mls/hr Q24H IV 06/24/17 14:00 07/01/17 13:21 (Lactinex) 1 tab Q12HR PO 06/26/17 09:00 07/01/17 08:49 (Oramorph Sr) 15 mg Q12HR PO 06/26/17 12:15 07/01/17 08:50 (Tylenol) 650 mg Q6HR PO 06/30/17 18:00 07/01/17 06:00 (Cleocin) 300 mg Q6H PO 07/01/17 14:00 (Jaylan Grey MD R1) Urinary Catheter: No (Jaylan Grey MD R1) A/P Assessment and Plan 47-year-old female with a past medical history of end-stage renal disease on HD MWF, diabetes, hypertension, PAD, recently discharged from the hospital on 03 June where she was found to have an acute splenic infarction, presented with a one-day history of chest pain and left shoulder pain as well as elevated potassium and creatinine. She was admitted to the hospital for dialysis and ACS rule out and was found to have a splenic abscess identified on CTA performed on 06/19/17. Splenic abscess drained placed by IR on 06/21 with wound cx growing Propionbacterium and Enterobacter cloacae. ID is assisting with antibiotic management and is currently on Rocephin IV and PO Clindamycin; Vancomycin IV has been discontinued. IR to remove drain when no longer draining fluid. Discharge Planning Pending management of splenic abscess, stable vital signs, safe discharge. (Jaylan Grey MD R1) Attending Attestation Patient seen and examined. Case reviewed and discussed Agree with plan of care as discussed with me and documented in the resident note. (Irene Davis MD) Problem List: (1) Splenic abscess ICD Codes: D73.3 - Abscess of spleen Status: Acute Plan: CTA performed on 06/19 showed interval development of air-containing fluid collection in the spleen measuring up to 6.9 x 3.0 cm in maximal dimension with subcapsular fluid in region of prior splenic infarction, concerning for splenic abscess. No significant aortic or mesenteric stenoses identified. Interventional radiology drained abscess 06/20/17. Cultures of drained abscess fluid growing propionibacterium and collins-sensitive Enterobacter cloacae. Blood cultures negative. Soft tissue US around splenic abscess drain shows a small collection of fluid, approx 1cm x 1cm. CT abdomen/pelvis 07/01 shows retraction of splenic drainage catheter with subcapsular air containing fluid collection 2.3 x 3.9 x 2.2cm. Discussing the plan with IR - ID on board - continue vancomycin for previously diagnosed bacteremia - Continue Rocephin IV started on 06/24/17 - Tylenol 650 PO q6hrs. - Oramorph 15mg PO q12hr - Waiting on IR to determine when to remove drain (2) ESRD (end stage renal disease) on dialysis ICD Codes: N18.6 - End stage renal disease; Z99.2 - Dependence on renal dialysis Status: Chronic Plan: - Hemodialysis MWF per nephrology recommendations, Dr. Gilbert on board. She did received dialysis 07/01 due to the holiday schedule. - Avoid nephrotoxic agents - Monitor electrolytes - Continue Sevelamer, monitor calcium/phosphate (3) Hypertension ICD Codes: I10 - Essential (primary) hypertension Status: Chronic Plan: -Continue home medications: Amlodipine (on hold for some low pressures today), Coreg, and lisinopril with hold parameters for low blood pressure and/ or bradycardia (4) Diabetes ICD Codes: E11.9 - Type 2 diabetes mellitus without complications Status: Chronic Plan: -Levemir 5 units BID -Continue glucose monitoring with SSI - does not have much SSI requirement (5) Peripheral vascular disease ICD Codes: I73.9 - Peripheral vascular disease, unspecified Status: Acute Plan: - Continue clopidogrel 75 mg PO daily (6) Calciphylaxis ICD Codes: E83.59 - Other disorders of calcium metabolism Status: Acute Plan: -Continue thiosulfate per nephrology (7) Tobacco abuse ICD Codes: Z72.0 - Tobacco use Status: Chronic Plan: -Nicotine patch 7 mg (8) Physical deconditioning ICD Codes: R53.81 - Other malaise Status: Chronic Plan: -PT consulted to assist with ambulation and exercises (9) Hyperphosphatemia ICD Codes: E83.39 - Other disorders of phosphorus metabolism Status: Resolved Plan: -Restarted Renvela 3200mg TID on 06/20 -Follow phosphorus level intermittently (10) Chronic Medical Problems Status: Chronic Plan: Diabetic neuropathy: Holding gabapentin 400 mg by mouth 3 times a day due to recent altered mental status. Will resume this medication slowly Hyperlipidemia: Continue Atorvastatin, Pravastatin Anxiety/Depression: Continue sertraline 100 mg by mouth daily, holding trazodone 50 mg by mouth at bedtime due to recent altered mental status. Will resume this medication slowly (11) FEN/DVT PPX/GI PPX/Nursing Orders Plan: Fluids: Oral fluids only, on hemodialysis Electrolytes: Will monitor and replace as needed Nutrition: Renal diet DVT Prophylaxis: Unilateral SCDs, Eliquis 2.5 mg by mouth twice a day PRN Medications Zofran 4 mg IV push every 6 hours when necessary nausea vomiting Oramorph 15mg q12h for pain Tylenol 1g IV q6h for pain Holding Morphine 4 mg IV every 3 hours when necessary breakthrough pain -Vitals Q4h -Monitor I's and O's -Fall precautions -lunchroom monitor with telemetry with continuous vital signs -Activity OOB with assistance -PT to assist with ambulation -Case management consult to assist with discharge disposition (Jaylan Grey MD R1) Problem Qualifiers (1) Hypertension: Qualified Codes: I10 - Essential (primary) hypertension (2) Diabetes: Jaylan Grey MD R1 Jul 01, 2017 14:48 Irene Davis MD Jul 01, 2017 16:35
[2017-07-01] MEDS: CLINDAMYCIN 150 MG CAP PO SCH ×2 (16:47→21:05)
[2017-07-01] MEDS: REMOVE OLD PATCH T-DERMAL SCH (21:00)
[2017-07-01] MEDS: diphenhydrAMINE HCL 25 MG CAP PO PRN (21:42)
[2017-07-02] MEDS: ACETAMINOPHEN 325 MG TAB PO SCH ×4 (00:35→17:25)
[2017-07-02] MEDS: CLINDAMYCIN 150 MG CAP PO SCH ×4 (02:06→20:55)
[2017-07-02 04:42] VITALS: BP 106/46; PULSE 66; RESP 18; TEMP 97.6; O2SAT 98
[2017-07-02] MEDS: diphenhydrAMINE HCL 25 MG CAP PO PRN (06:23)
[2017-07-02 06:49] LABS: HEMATOCRIT 33.7 % (35.0-46.0); MEAN CELL VOLUME 94.2 FL (80.0-100.0); MEAN CORPUSCULAR HEMOGLOBIN 30.6 PG (27.0-34.0); MEAN CORPUSCULAR HGB CONC 32.5 % (32.0-36.0); PLATELET COUNT 361 TH/MM3 (150-450); RED BLOOD COUNT 3.58 MIL/MM3 (4.00-5.30); REVIEW FLAG FINAL; WHITE BLOOD COUNT 13.6 TH/MM3 (4.0-11.0)
--- NOTE | 2017-07-02 07:06 | HHI.FF ---
Face to Face Verification Diagnosis: (1) Physical deconditioning (2) ESRD (end stage renal disease) on dialysis (3) Splenic abscess Physical Therapy Order: Evaluate and Treat, Improve ambulation, Strength and gait training Occupational Therapy Order: Evaluate and Treat, Improve ADL, Gross motor coordination, Fine motor coordination Home Health Nursing Order: Medical education Signs/symptoms of disease process Medication education-adverse effect Wound care and dressing changes Nursing assessment with vital signs Electronics Specialist Order: To Evaluate: Living conditions/environment, Support services Order: To Provide: Long range planning, Community services I have seen patient Summer Laguerre on 07/02/17. My clinical findings support the need for the requested home health care services because: Ltd mobility - disease progression Deconditioned w/ increased weakness Limited ability to care for self Need for psychosocial assistance Impaired cognition/judgement High risk of falls I certify that my clinical findings support that this patient is homebound because: Impaired cognitive ability/safety Unsteady gait/balance Unsafe to leave home unassisted Need for psychosocial assistance Unable to use public transportation Leena Johnston MD R2 Jul 02, 2017 07:06
[2017-07-02 07:24] LABS: POTASSIUM 4.2 MEQ/L (3.5-5.1)
[2017-07-02] MEDS: SODIUM CHLORIDE 0.9% FLUSH 10 ML FLUSH IV FLUSH SCH ×2 (07:34→20:56)
[2017-07-02 08:00] VITALS: BP 119/63; PULSE 64; RESP 18; TEMP 97.7; O2SAT 97
[2017-07-02] MEDS: INSULIN ASPART SUPPLEMENTAL SCALE SQ SCH ×4 (08:00→20:56)
[2017-07-02] MEDS: LISINOPRIL 20 MG TAB PO SCH (08:58)
[2017-07-02] MEDS: CARVEDILOL 12.5 MG TAB PO SCH ×2 (08:59→20:55)
[2017-07-02] MEDS: DOCUSATE SODIUM 50 MG/SENNA 8.6 MG TAB PO SCH ×2 (08:59→20:55)
[2017-07-02] MEDS: PANTOPRAZOLE SOD 40 MG DELAYED RELEASE TAB PO SCH (08:59)
[2017-07-02] MEDS: LACTOBACILLUS ACIDOPHILUS TAB PO SCH ×2 (08:59→20:55)
[2017-07-02] MEDS: CLOPIDOGREL 75 MG TAB PO SCH (08:59)
[2017-07-02] MEDS: POLYETHYLENE GLYCOL 17 GM PKG PO SCH (08:59)
[2017-07-02] MEDS: NICOTINE 7 MG/24 HR PATCH T-DERMAL SCH (08:59)
[2017-07-02] MEDS: SEVELAMER CARBONATE 800 MG TAB PO SCH ×3 (08:59→17:26)
[2017-07-02] MEDS: CHOLECALCIFEROL (VIT D3) 5000 UNIT CAP PO SCH (09:00)
[2017-07-02] MEDS: SERTRALINE HCL 100 MG TAB PO SCH (09:00)
[2017-07-02] MEDS: INSULIN DETEMIR 100 UNITS/ML VIAL SQ SCH ×2 (09:00→20:56)
[2017-07-02] MEDS: APIXABAN 2.5 MG TABLET PO SCH ×2 (09:00→20:55)
[2017-07-02] MEDS: MORPHINE SULFATE 15 MG CONTROLLED RELEASE TAB PO SCH ×2 (09:00→20:56)
[2017-07-02] MEDS: VITAMIN B CMPLX/VITC/FOLIC AC CAP PO SCH (09:01)
--- NOTE | 2017-07-02 10:42 | HHI.FPPN ---
Subjective Remarks Ms Laguerre is doing well today. She still has pain in her left back and diffusely in her abdomen but it is manageable. Last bowel movement was yesterday. She denies fever or nausea. She is scheduled to have dialysis today due to the holiday schedule. She does not think that she is ready to leave the hospital today because she wants to make sure that everything is okay so she doesn't have to come back for another prolonged stay. The drain was removed yesterday. (Leena Johnston MD R2) Objective Vitals Vital Signs Date Time Temp Pulse Resp B/P (MAP) Pulse Ox O2 Delivery O2 Flow Rate FiO2 07/02/17 08:00 97.7 64 18 119/63 (81) 97 07/02/17 04:42 97.6 66 18 106/46 (66) 98 07/02/17 04:42 Room Air 07/01/17 23:42 97.4 65 18 103/46 (65) 91 07/01/17 23:42 Room Air 07/01/17 20:17 71 07/01/17 20:08 97.7 75 18 121/55 (77) 100 Automatic Cuff 07/01/17 20:08 Nasal Cannula 2.00 07/01/17 16:51 97.7 73 16 108/53 (71) 94 07/01/17 12:53 98.5 76 20 92/54 (67) 98 I/O 07/01/17 07/01/17 07/01/17 07/02/17 07/02/17 07/02/17 07:00 15:00 23:00 07:00 15:00 23:00 Intake Total 700 ml 380 ml 240 ml Output Total 655 ml 0 ml 0 ml Balance 45 ml 380 ml 240 ml Intake Oral 700 ml 380 ml 240 ml Output Urine Total 600 ml 0 ml 0 ml Drainage Total 55 ml # Bowel Movements 0 0 1 (Leena Johnston MD R2) Result Diagram: 07/02/17 0610 07/02/17 0610 Objective Remarks General: Sitting up in bed receiving dialysis, in no acute distress Skin: 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 Poor dentition. MMM. Neck: Supple, no lymphadenopathy, no thyromegaly CV: RRR, no murmurs, rubs, or gallops, no edema. Lungs: CTAB, no wheezing, rales, or rhonchi. Abdomen: Soft, nontender in lower quadrants, but tender in left back around the former drainage site; no guarding; normal BS. Drain exit wound clean with minimal drainage on dressing BACK: Skin immediately surrounding former drainage exit site appears indurated and tender to palpation but not worse than previous exam Neuro: Alert and oriented, EOMI, PERRLA, CN intact. Procedures splenic abscess drainage by IR 06/20/17 (Leena Johnston MD R2) A/P Assessment and Plan 47-year-old female with a past medical history of end-stage renal disease on HD MWF, diabetes, hypertension, PAD, recently discharged from the hospital on 03 June where she was found to have an acute splenic infarction, presented with a one-day history of chest pain and left shoulder pain as well as elevated potassium and creatinine. She was admitted to the hospital for dialysis and ACS rule out and was found to have a splenic abscess identified on CTA performed on 06/19/17. Splenic abscess drained placed by IR on 06/21 with wound cx growing Propionbacterium and Enterobacter cloacae. ID is assisting with antibiotic management and is currently on Rocephin IV and PO Clindamycin; Vancomycin IV has been discontinued. IR removed the splenic abscess drain on . Will discuss with Dr. Davis Discharge Planning Pending management of splenic abscess, stable vital signs, safe discharge. (Leena Johnston MD R2) Attending Attestation Patient seen and examined. Case reviewed and discussed Agree with plan of care as discussed with me and documented in the resident note. (Irene Davis MD) Problem List: (1) Splenic abscess ICD Codes: D73.3 - Abscess of spleen Status: Acute Plan: CTA performed on 06/19 showed interval development of air-containing fluid collection in the spleen measuring up to 6.9 x 3.0 cm in maximal dimension with subcapsular fluid in region of prior splenic infarction, concerning for splenic abscess. No significant aortic or mesenteric stenoses identified. Interventional radiology drained abscess 06/20/17. Cultures of drained abscess fluid growing propionibacterium and collins-sensitive Enterobacter cloacae. Blood cultures negative. Soft tissue US around splenic abscess drain shows a small collection of fluid, approx 1cm x 1cm. CT abdomen/pelvis 07/01 shows retraction of splenic drainage catheter with subcapsular air containing fluid collection 2.3 x 3.9 x 2.2cm. - ID on board -continue Rocephin IV and clindamycin. Patient has received 4 doses of clindamycin as of 08:59 on 07/02 - Continue Rocephin IV started on 06/24/17 - Tylenol 650 PO q6hrs - Oramorph 15mg PO q12hr - Drain was removed on 07/02 (2) ESRD (end stage renal disease) on dialysis ICD Codes: N18.6 - End stage renal disease; Z99.2 - Dependence on renal dialysis Status: Chronic Plan: - Hemodialysis MWF per nephrology recommendations based on holiday schedule, Dr. Gilbert on board. - Avoid nephrotoxic agents - Monitor electrolytes - Continue Sevelamer, monitor calcium/phosphate (3) Hypertension ICD Codes: I10 - Essential (primary) hypertension Status: Chronic Plan: -Continue home medications: Coreg, and lisinopril with hold parameters for low blood pressure and/or bradycardia (4) Diabetes ICD Codes: E11.9 - Type 2 diabetes mellitus without complications Status: Chronic Plan: -Levemir 5 units BID -Continue glucose monitoring with SSI - does not have much SSI requirement (5) Peripheral vascular disease ICD Codes: I73.9 - Peripheral vascular disease, unspecified Status: Acute Plan: - Continue clopidogrel 75 mg PO daily (6) Calciphylaxis ICD Codes: E83.59 - Other disorders of calcium metabolism Status: Acute Plan: -Continue thiosulfate per nephrology (7) Tobacco abuse ICD Codes: Z72.0 - Tobacco use Status: Chronic Plan: -Nicotine patch 7 mg (8) Physical deconditioning ICD Codes: R53.81 - Other malaise Status: Chronic Plan: -PT assisting with ambulation and exercises (9) Hyperphosphatemia ICD Codes: E83.39 - Other disorders of phosphorus metabolism Status: Resolved Plan: -Restarted Renvela 3200mg TID on 06/20 -Follow phosphorus level intermittently (10) Chronic Medical Problems Status: Chronic Plan: Diabetic neuropathy: Consider resuming gabapentin today Hyperlipidemia: Continue Atorvastatin, Pravastatin Anxiety/Depression: Continue sertraline 100 mg by mouth daily. Consider resuming trazodone (11) FEN/DVT PPX/GI PPX/Nursing Orders Plan: Fluids: Oral fluids only, on hemodialysis Electrolytes: Will monitor and replace as needed Nutrition: Renal diet DVT Prophylaxis: Unilateral SCDs, Eliquis 2.5 mg by mouth twice a day PRN Medications Zofran 4 mg IV push every 6 hours when necessary nausea vomiting Oramorph 15mg q12h for pain Tylenol 1g IV q6h for pain Benadryl 25 mg by mouth to 4 hours when necessary for itching -Vitals Q4h -Monitor I's and O's -Fall precautions -Activity OOB ad ella -PT to assist with ambulation -Case management consult to assist with discharge disposition (Leena Johnston MD R2) Problem Qualifiers (1) Hypertension: Qualified Codes: I10 - Essential (primary) hypertension (2) Diabetes: Leena Johnston MD R2 Jul 02, 2017 10:42 Irene Davis MD Jul 09, 2017 14:16
[2017-07-02 12:00] VITALS: BP 107/52; PULSE 65; RESP 18; TEMP 97.7; O2SAT 100
--- NOTE | 2017-07-02 12:30 | HHI.IDPN ---
Subjective Subjective Remarks 47 y/o female with ESRD, on HD MWF, on Rx for Enterococcal and Kleb sepsis, being Rxd for possible endocarditis, found to have splenic infarct during last admission. Rx supposed to toña completed this month. Readmitted for CP and L shoulder pain. Cardiac work-up negative. Found now to have splenic abscess. has been afebrile. WBC normal. BC negative Notes reviewed Temps ok Drain removed yesterday Still C/O pain, stable C/S from the drain with Propionobacterium and Enterobacter Antibiotics Rocephin Current Medications Medications (Trade) Dose Ordered Sig/Jen Route Start Time Stop Time Status Last Admin Sodium Chloride 1,000 ml @ 0 mls/hr Q0M PRN OTHER 06/17/17 13:27 06/30/17 12:15 (Heparin Inj) 8,000 units UNSCH PRN IV FLUSH 06/17/17 13:30 Sodium Chloride 1,000 ml @ 200 mls/hr Q5H PRN IV 06/17/17 13:27 Sodium Chloride 1,000 ml @ 0 mls/hr Q0M PRN OTHER 06/17/17 13:27 (Mannitol Inj) 12.5 gm UNSCH PRN IV 06/17/17 13:30 Albumin Human 100 ml @ 60 mls/hr UNSCH PRN IV 06/17/17 13:30 06/26/17 11:55 (NS Flush) 5 ml UNSCH PRN IV FLUSH 06/17/17 13:30 (Heparin Inj) UNSCH PRN .XX 06/17/17 13:30 (Gentamicin (Dialysis) Inj) 20 mg UNSCH PRN OTHER 06/17/17 13:30 (Zofran Inj) 4 mg UNSCH PRN IV PUSH 06/17/17 13:30 (Nitrostat Sl) 0.4 mg UNSCH PRN SL 06/17/17 13:30 (Catapres) 0.1 mg UNSCH PRN PO 06/17/17 13:30 (Epogen Inj) 4,000 units UNSCH PRN IV PUSH 06/17/17 13:30 06/30/17 12:15 (Gelfoam 12 Mm/7 Mm Top) 1 foam UNSCH PRN TOP 06/17/17 13:30 06/30/17 12:15 Sodium Thiosulfate 99739 mg/Sterile Water 200 ml @ 150 mls/hr WITH DIALYSIS PRN IV 06/17/17 13:30 06/30/17 12:15 (NS Flush) 2 ml UNSCH PRN IV FLUSH 06/17/17 14:45 (NS Flush) 2 ml BID IV FLUSH 06/17/17 21:00 07/02/17 07:34 (Zofran Inj) 4 mg Q6H PRN IVP 06/17/17 18:00 (Narcan Inj) 0.4 mg UNSCH PRN IV PUSH 06/17/17 14:45 (Areli-Colace) 2 tab BID PO 06/17/17 21:00 07/02/17 08:59 (D50w (Vial) Inj) 50 ml UNSCH PRN IV PUSH 06/17/17 15:00 (Glucagon Inj) 1 mg UNSCH PRN OTHER 06/17/17 15:00 (NovoLOG SUPPLEMENTAL SCALE) 1 ACHS SLIDING SCALE SQ 06/17/17 17:00 07/01/17 21:43 (Coreg) 25 mg BID PO 06/17/17 21:00 07/02/17 08:59 (Vitamin D3) 5,000 units DAILY PO 06/18/17 09:00 07/02/17 09:00 (Zoloft) 100 mg DAILY PO 06/18/17 09:00 07/02/17 09:00 (Nephrocaps) 1 cap DAILY PO 06/18/17 09:00 07/02/17 09:01 (Protonix) 40 mg DAILY PO 06/17/17 15:00 07/02/17 08:59 (Habitrol 7 Mg Patch.24 Hr) 1 patch DAILY T-DERMAL 06/18/17 09:00 07/02/17 08:59 Miscellaneous Information 1 HS T-DERMAL 06/17/17 21:00 07/01/17 21:00 (Desyrel) 50 mg HS PO 06/19/17 21:00 Future Hold 06/20/17 21:24 (Miralax) 17 gm DAILY PO 06/20/17 09:00 07/02/17 08:59 (Levemir Inj) 5 units BID SQ 06/20/17 21:00 07/02/17 09:00 (Renvela) 3,200 mg TIDPC PO 06/20/17 18:30 07/02/17 08:59 Pharmacy Profile Note 0 ml @ 0 mls/hr UNSCH OTHER 06/22/17 13:00 (Plavix) 75 mg DAILY PO 06/23/17 09:00 07/02/17 08:59 (Eliquis) 2.5 mg BID PO 06/22/17 21:00 07/02/17 09:00 (Norvasc) 5 mg DAILY PO 06/24/17 09:00 Future Hold 06/30/17 09:46 (Prinivil) 20 mg DAILY PO 06/24/17 09:00 07/02/17 08:58 Ceftriaxone Sodium 2000 mg/ Sodium Chloride 100 ml @ 200 mls/hr Q24H IV 06/24/17 14:00 07/01/17 13:21 (Lactinex) 1 tab Q12HR PO 06/26/17 09:00 07/02/17 08:59 (Oramorph Sr) 15 mg Q12HR PO 06/26/17 12:15 07/02/17 09:00 (Tylenol) 650 mg Q6HR PO 06/30/17 18:00 07/02/17 06:23 (Cleocin) 300 mg Q6H PO 07/01/17 14:00 07/02/17 08:59 (Benadryl) 25 mg Q4H PRN PO 07/01/17 21:30 07/02/17 06:23 Lines PIV Past Medical History ESRD, on dialysis Saturday and Saturday Hypertension CAD Hyperlipidemia Diabetes Hepatitis C Legally blind Prior miscarriage PVD Calciphylaxis Past Surgical History Cholecystectomy R UE AV fistula Right nephrectomy Dental extraction Tonsillectomy R BKA Allergies: Coded Allergies: codeine (Verified Allergy, Severe, HYPERACTIVITY &ITCH, 06/17/17) iodine (Verified Allergy, Severe, TOPICAL/ITCH, 06/17/17) potassium iodide (Verified Allergy, Severe, TOPICAL/ITCH, 06/17/17) povidone-iodine (Verified Allergy, Severe, TOPICAL/ITCH, 06/17/17) sodium iodide (Verified Allergy, Severe, TOPICAL/ITCH, 06/17/17) sodium iodide (Verified Allergy, Severe, TOPICAL/ITCH, 06/17/17) iohexol (Verified Allergy, Intermediate, HIVES, 06/17/17) Pork/Porcine Containing Products (Verified Allergy, Unknown, 06/17/17) penicillin G (Verified Allergy, Unknown, 06/17/17) Objective . Vital Signs Date Time Temp Pulse Resp B/P (MAP) Pulse Ox O2 Delivery O2 Flow Rate FiO2 07/02/17 08:00 97.7 64 18 119/63 (81) 97 07/02/17 04:42 97.6 66 18 106/46 (66) 98 07/02/17 04:42 Room Air 07/01/17 23:42 97.4 65 18 103/46 (65) 91 07/01/17 23:42 Room Air 07/01/17 20:17 71 07/01/17 20:08 97.7 75 18 121/55 (77) 100 Automatic Cuff 07/01/17 20:08 Nasal Cannula 2.00 07/01/17 16:51 97.7 73 16 108/53 (71) 94 07/01/17 12:53 98.5 76 20 92/54 (67) 98 . Laboratory Tests Test 07/01/17 07:00 07/02/17 06:10 White Blood Count 12.7 TH/MM3 13.6 TH/MM3 Red Blood Count 3.73 MIL/MM3 3.58 MIL/MM3 Hemoglobin 11.2 GM/DL 11.0 GM/DL Hematocrit 35.2 % 33.7 % Mean Corpuscular Volume 94.4 FL 94.2 FL Mean Corpuscular Hemoglobin 30.0 PG 30.6 PG Mean Corpuscular Hemoglobin Concent 31.8 % 32.5 % Red Cell Distribution Width 17.2 % 17.0 % Platelet Count 363 TH/MM3 361 TH/MM3 Mean Platelet Volume 8.1 FL 8.2 FL Laboratory Tests Test 07/01/17 07:00 07/02/17 06:10 Blood Urea Nitrogen 34 MG/DL 45 MG/DL Creatinine 5.91 MG/DL 7.83 MG/DL Random Glucose 97 MG/DL 115 MG/DL Calcium Level 9.9 MG/DL 9.8 MG/DL Phosphorus Level 4.0 MG/DL Sodium Level 134 MEQ/L 135 MEQ/L Potassium Level 4.3 MEQ/L 4.2 MEQ/L Chloride Level 97 MEQ/L 93 MEQ/L Carbon Dioxide Level 24.4 MEQ/L 28.0 MEQ/L Anion Gap 13 MEQ/L 14 MEQ/L Estimat Glomerular Filtration Rate 8 ML/MIN 6 ML/MIN Imaging RADIOLOGY STUDIES/FILMS REVIEWED Last Impressions Soft Tissue Ultrasound 06/26/17 0000 Signed Impressions: Service Date/Time: Monday, June 26, 2017 17:11 - CONCLUSION: Small fluid collection around the drain Vamsi Keenan MD FACR Chest X-Ray 06/23/17 0000 Signed Impressions: Service Date/Time: Friday, June 23, 2017 13:55 - CONCLUSION: 1. Hypoinflation with worsening bibasilar airspace disease. Possible associated effusions. 2. Cardiomegaly. Dennis Trimble MD Brain MRI 06/22/17 0000 Signed Impressions: Service Date/Time: Thursday, June 22, 2017 14:51 - CONCLUSION: Negative exam. Dennis Trimble MD Abscess Drainage CT 06/20/17 0000 Signed Impressions: Service Date/Time: June 10:20 - CONCLUSION: Uncomplicated CT guided drainage of the left upper quadrant perisplenic fluid collection. Samples were saved and sent to lab for Gram stain and cultures. Abhijit De Los Santos MD Abdomen/Pelvis CT 06/18/17 0000 Signed Impressions: Service Date/Time: Monday, June 19, 2017 08:14 - CONCLUSION: 1. Interval development of air-containing fluid collection in the spleen measuring up to 6.9 x 3.0 cm in maximal dimension with subcapsular fluid in region of prior splenic infarction. This finding is concerning for splenic abscess. 2. Mild bibasilar ground glass opacities and platelike air space consolidation in the left lower lobe, likely atelectasis. 3. No significant aortic or mesenteric stenosis as questioned. 4. End-stage appearing kidneys. 5. Trace place pelvic free fluid. Findings were personally discussed with Dr. Johnston. Capo Liu MD Abdomen X-Ray 06/18/17 0000 Signed Impressions: Service Date/Time: Sunday, June 18, 2017 13:38 - CONCLUSION: 1. No acute abdominal abnormality is identified. There are no findings to indicate obstruction. 2. Severe renal artery vascular calcification. Abhijit De Los Santos MD Lung Scan-V Nuclear Medicine 06/17/17 0000 Signed Impressions: Service Date/Time: Saturday, June 17, 2017 16:03 - CONCLUSION: 1. Central trapping on the ventilatory images. Nonspecific but can be seen in COPD. 2. Otherwise, low probability scan for pulmonary embolus. Dennis Trimble MD Physical Exam GENERAL: awake and alert, NAD SKIN: Warm and dry. Has superficial round ulcers on face, with some crusting and some in her UE HEAD: Atraumatic. Normocephalic. No temporal wasting, or tenderness. EYES: [place] conjunctiva. No petechia or hemorrhage. Pupils equal, round and reactive to light. Extraocular movements full and intact. No scleral icterus. EARS, NOSE AND THROAT: Nose without bleeding or purulent nasal discharge. Mucous membranes pink and moist. No oral lesions noted. She is edentulous. NECK: Trachea midline. Supple and not tender, no meningeal signs CARDIOVASCULAR: Regular rate and rhythm. No murmurs, rubs or gallops heard RESPIRATORY: Clear to auscultation. Breath sounds equal bilaterally. No rales , wheezing or rhonchi ABDOMEN: Soft, nondistended, with diffuse abdominal tenderness, but no guarding or rebound. Bowel sounds present and normoactive. No organomegaly. EXTREMITIES: No clubbing, cyanosis, or edema. No joint effusion, has good ROM. No calf tenderness. Well perfused and warm. RUE AVF with no evidence of infection. S/P RBKA, well healed stump NEUROLOGICAL: Awake and alert. Cranial nerves grossly intact. Motor grossly within normal limits. PSYCHIATRIC: Normal affect, calm and cooperative. LINE: No evidence of infection Assessment & Plan Remarks IMPRESSION Enterococcal and Klebsiella bacteremia, on Rx for possible endocarditis, with splenic infarct - MARILU no vegetation done during last admission Splenic abscess, developed while on Rx for bacteremia - C/S with different bacteria: Enterobacter and Propionobacterium ESRD, on HD MWF Hx IVDU, ?continued use of IVD Has skin lesions which according to patient is from calciphylaxis, ?popping or picking due to drugs RECOMMENDATION Continue PO Clinda Change Rocephin to Levaquin Give oral Abx until Jul [address] in 3-4 weeks to reevaluate the spleen She is clinically stable from ID standpoint I will sign off Please reconsult if with any new ID issue or question Carrie Sanchez MD Jul 02, 2017 12:30
[2017-07-02] MEDS: GELATIN 12 MM/7 MM FOAM TOP PRN (14:25)
[2017-07-02] MEDS: EPOETIN ALFA 10,000 UNITS/ML VIAL IV PUSH PRN (14:27)
--- NOTE | 2017-07-02 15:52 | HHI.FPPN ---
Addendum to progress note ADDENDUM Reason for addendum: Additonal documentation Additional information Spoke with Gonzalo Manning, interventional radiologist, about possibly reinserting Ms Cordova's splenic abscess drain int he light of a 4cm fluid collection seen on CT on 07/01. He recommended to watch her clinically for a few days to see if she continues to improve. If she worsens clinically, can recheck CT of abdomen and make decision at that time about reinsertion at that time. (Leena Johnston MD R2) Leena Johnston MD R2 Jul 02, 2017 15:52 Irene Davis MD Jul 09, 2017 14:16
[2017-07-02 17:25] VITALS: BP 114/66; PULSE 73; RESP 18; TEMP 97.8; O2SAT 100
[2017-07-02] MEDS: LEVOFLOXACIN 250 MG TAB PO SCH (17:29)
--- NOTE | 2017-07-02 18:56 | HHI.NPPN ---
Subjective History of Present Illness Patient is a 47-year-old the female with history of end-stage renal disease, diabetes, blindness, peripheral vascular disease, calciphylaxis, ischemic left foot, previous right BKA who has certainly admitted with the chest pain she's described the pain in the left side radiating to his left shoulder, patient has similar complaints a few weeks ago, and was discharged after workup She goes to dialysis on Saturday, Saturday and Saturday Additional Remarks no acute complaints, blood pressure dropped during HD today Review of Systems Gastrointestinal Gastrointestinal: Abdominal Pain Objective Data Data Vital Signs Date Time Temp Pulse Resp B/P (MAP) Pulse Ox O2 Delivery O2 Flow Rate FiO2 07/02/17 17:25 97.8 73 18 114/66 (82) 100 07/02/17 12:00 97.7 65 18 107/52 (70) 100 07/02/17 08:00 97.7 64 18 119/63 (81) 97 07/02/17 04:42 97.6 66 18 106/46 (66) 98 07/02/17 04:42 Room Air 07/01/17 23:42 97.4 65 18 103/46 (65) 91 07/01/17 23:42 Room Air 07/01/17 20:17 71 07/01/17 20:08 97.7 75 18 121/55 (77) 100 Automatic Cuff 07/01/17 20:08 Nasal Cannula 2.00 -: 07/02/17 0610 07/02/17 0610 Physical Exam General Appearance: Well Developed, Well Nourished Neck Neck Exam: Neck Supple Pulmonary Resp Exam: Clear Bilaterally, Breath Sounds Equal Cardiology CV Exam: Regular Gastrointestinal/Abdomen GI Exam: Soft, Non-Tender, Bowel Sounds Present Extremeties Extremities Exam: Trace Edema Extremeties Remarks ischemic l foot Assessment/Plan Problem List: (1) ESRD (end stage renal disease) on dialysis ICD Codes: N18.6 - End stage renal disease; Z99.2 - Dependence on renal dialysis Status: Chronic Plan: HD MWF outpatient. getting Ceftriaxone fluid Enterobacter/Propionibacterium alert responsive doing well drain is out Holiday schedule for HD -hemodialysis was done ultrafiltrate 0 due to low blood pressure (2) Hyperkalemia ICD Codes: E87.5 - Hyperkalemia Status: Acute Plan: improved with HD (3) Calciphylaxis ICD Codes: E83.59 - Other disorders of calcium metabolism Status: Acute Plan: Continue with sodium thiosulfate (4) Peripheral vascular disease ICD Codes: I73.9 - Peripheral vascular disease, unspecified Status: Acute Plan: Had previous procedures done (5) Diabetes ICD Codes: E11.9 - Type 2 diabetes mellitus without complications Status: Chronic Plan: Monitor blood glucose (6) Hypertension ICD Codes: I10 - Essential (primary) hypertension Status: Chronic Plan: Continue to monitor blood pressure (7) Chest pain ICD Codes: R07.9 - Chest pain, unspecified Status: Acute Plan: as above follow VQ scan Problem Qualifiers (1) Diabetes: (2) Hypertension: Qualified Codes: I10 - Essential (primary) hypertension (3) Chest pain: Qualified Codes: R07.9 - Chest pain, unspecified Gerri Gilbert MD Jul 02, 2017 18:56
[2017-07-02 19:53] VITALS: BP 112/54; PULSE 75; RESP 16; TEMP 98.1; O2SAT 95
[2017-07-02] MEDS: REMOVE OLD PATCH T-DERMAL SCH (20:56)
[2017-07-02 23:34] VITALS: BP 126/56; PULSE 67; RESP 16; TEMP 97.5; O2SAT 100
[2017-07-03] MEDS: CLINDAMYCIN 150 MG CAP PO SCH ×4 (01:03→20:48)
[2017-07-03] MEDS: ACETAMINOPHEN 325 MG TAB PO SCH ×4 (01:03→17:45)
[2017-07-03 04:34] VITALS: BP 105/57; PULSE 77; RESP 16; TEMP 98.2; O2SAT 99
[2017-07-03 05:48] LABS: AUTOMATED NEUTROPHIL # 8.8 TH/MM3 (1.8-7.7); BASOPHIL # 0.1 TH/MM3 (0-0.2); EOSINOPHIL # 0.2 TH/MM3 (0-0.4); EOSINOPHIL % 1.5 % (0.0-4.0); HEMATOCRIT 34.3 % (35.0-46.0); HEMO FLAGS DIFF FINAL; LYMPH % 9.7 % (9.0-44.0); LYMPHOCYTE # 1.1 TH/MM3 (1.0-4.8); MEAN CELL VOLUME 94.4 FL (80.0-100.0); MEAN CORPUSCULAR HEMOGLOBIN 30.5 PG (27.0-34.0); MEAN CORPUSCULAR HGB CONC 32.3 % (32.0-36.0); MONO % 8.6 % (0.0-8.0); NEUT % 79.2 % (16.0-70.0); PLATELET COUNT 343 TH/MM3 (150-450); RED BLOOD COUNT 3.63 MIL/MM3 (4.00-5.30); RED CELL DISTRIBUTION WIDTH 16.9 % (11.6-17.2); WHITE BLOOD COUNT 11.1 TH/MM3 (4.0-11.0)
[2017-07-03 06:02] LABS: BICARBONATE 28.2 MEQ/L (21.0-32.0); POTASSIUM 4.2 MEQ/L (3.5-5.1)
--- NOTE | 2017-07-03 07:28 | HHI.FPPN ---
Subjective Remarks Patient states that she does not feel very well today. She had dialysis yesterday and they could not take fluid off her because her blood pressure was very low. She feels like she has the flu but cannot quite describe her symptoms. Her last bowel movement was yesterday. We spent some time discussing her plan of care which amounts to careful observation. (Leena Johnston MD R2) Objective Vitals Vital Signs Date Time Temp Pulse Resp B/P (MAP) Pulse Ox O2 Delivery O2 Flow Rate FiO2 07/03/17 04:34 98.2 77 16 105/57 (73) 99 07/02/17 23:34 97.5 67 16 126/56 (79) 100 07/02/17 21:01 Nasal Cannula 2.00 07/02/17 19:53 98.1 75 16 112/54 (73) 95 07/02/17 17:25 97.8 73 18 114/66 (82) 100 07/02/17 12:00 97.7 65 18 107/52 (70) 100 07/02/17 08:00 97.7 64 18 119/63 (81) 97 I/O 07/02/17 07/02/17 07/02/17 07/03/17 07/03/17 07/03/17 07:00 15:00 23:00 07:00 15:00 23:00 Intake Total 240 ml 240 ml Output Total 0 ml 0 ml Balance 240 ml 240 ml Intake Oral 240 ml 240 ml Output Urine Total 0 ml 0 ml # Bowel Movements 1 0 (Leena Johnston MD R2) Result Diagram: 07/03/17 0435 07/03/17 0435 Objective Remarks General: Sitting up in bed in no acute distress Skin: 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 Poor dentition. MMM. Neck: Supple CV: RRR, no murmurs, rubs, or gallops, no edema. Lungs: CTAB, no wheezing, rales, or rhonchi. Abdomen: Soft, nontender in lower quadrants, but tender in left back around the former drainage site and in right back. No swelling or erythema of skin of right back; no guarding; normal BS. Drain exit wound clean with minimal drainage on dressing BACK: Skin immediately surrounding former drainage exit site appears indurated and tender to palpation but improving Neuro: Alert and oriented, EOMI, PERRLA Procedures splenic abscess drain by IR 06/20/17. Removed on 07/01/17. (Leena Johnston MD R2) A/P Assessment and Plan 47-year-old female with a past medical history of end-stage renal disease on HD MWF, diabetes, hypertension, PAD, recently discharged from the hospital on 03 June where she was found to have an acute splenic infarction, presented with a one-day history of chest pain and left shoulder pain as well as elevated potassium and creatinine. She was admitted to the hospital for dialysis and ACS rule out and was found to have a splenic abscess identified on CTA performed on 06/19/17. Splenic abscess drain was placed by IR on 06/21 and wound cx grew Propionbacterium and Enterobacter cloacae. ID is assisting with antibiotic management and is currently on Levaquin PO and PO Clindamycin; IR removed the splenic abscess drain on 07/01 although she still has a 4cm fluid collection. The plan is to observe her for signs of clinical improvement. If her clinical status worsens, will consider repeating the CT and will decide on reinsertion at that time. Will discuss with Dr. Davis Discharge Planning Pending resolution of splenic abscess, stable vital signs, safe discharge. (Leena Johnston MD R2) Attending Attestation Patient seen and examined. Case reviewed and discussed Agree with plan of care as discussed with me and documented in the resident note. (Irene Davis MD) Problem List: (1) Splenic abscess ICD Codes: D73.3 - Abscess of spleen Status: Acute Plan: CTA performed on 06/19 showed interval development of air-containing fluid collection in the spleen measuring up to 6.9 x 3.0 cm in maximal dimension with subcapsular fluid in region of prior splenic infarction, concerning for splenic abscess. No significant aortic or mesenteric stenoses identified. Interventional radiology drained abscess 06/20/17. Cultures of drained abscess fluid growing propionibacterium and collins-sensitive Enterobacter cloacae. Blood cultures negative. Soft tissue US around splenic abscess drain shows a small collection of fluid, approx 1cm x 1cm. CT abdomen/pelvis 07/01 shows retraction of splenic drainage catheter with subcapsular air containing fluid collection 2.3 x 3.9 x 2.2cm. Drain was removed on 07/02. - ID on board -continue Levaquin 250 mg PO daily and clindamycin 300 mg PO Q6h. Patient has received 2 doses of Levaquin and 8 doses of clindamycin as of 08:40 on 07/03 - Tylenol 650 PO q6hrs - Oramorph 15mg PO q12hr (2) ESRD (end stage renal disease) on dialysis ICD Codes: N18.6 - End stage renal disease; Z99.2 - Dependence on renal dialysis Status: Chronic Plan: - Hemodialysis MWF per nephrology recommendations based on holiday schedule, Dr. Gilbert on board. - Avoid nephrotoxic agents - Monitor electrolytes - Continue Sevelamer, monitor calcium/phosphate (3) Hypertension ICD Codes: I10 - Essential (primary) hypertension Status: Chronic Plan: -Continue home medications: Coreg, and lisinopril with hold parameters for low blood pressure and/or bradycardia (4) Diabetes ICD Codes: E11.9 - Type 2 diabetes mellitus without complications Status: Chronic Plan: -Levemir 5 units BID -Continue glucose monitoring with SSI - does not have much SSI requirement (5) Peripheral vascular disease ICD Codes: I73.9 - Peripheral vascular disease, unspecified Status: Acute Plan: - Continue clopidogrel 75 mg PO daily (6) Calciphylaxis ICD Codes: E83.59 - Other disorders of calcium metabolism Status: Acute Plan: -Continue thiosulfate per nephrology (7) Tobacco abuse ICD Codes: Z72.0 - Tobacco use Status: Chronic Plan: -Nicotine patch 7 mg (8) Physical deconditioning ICD Codes: R53.81 - Other malaise Status: Chronic Plan: -PT assisting with ambulation and exercises (9) Hyperphosphatemia ICD Codes: E83.39 - Other disorders of phosphorus metabolism Status: Resolved Plan: -Restarted Renvela 3200mg TID on 06/20 -Follow phosphorus level intermittently (10) Chronic Medical Problems Status: Chronic Plan: Diabetic neuropathy: Consider resuming gabapentin today Hyperlipidemia: Continue Atorvastatin, Pravastatin Anxiety/Depression: Continue sertraline 100 mg by mouth daily. Consider resuming trazodone (11) FEN/DVT PPX/GI PPX/Nursing Orders Plan: Fluids: Oral fluids only, on hemodialysis Electrolytes: Will monitor and replace as needed Nutrition: Renal diet DVT Prophylaxis: Eliquis 2.5 mg by mouth twice a day PRN Medications Zofran 4 mg IV push every 6 hours when necessary nausea vomiting Oramorph 15mg q12h for pain Tylenol 1g IV q6h for pain Benadryl 25 mg by mouth to 4 hours when necessary for itching -Vitals Q4h -Monitor I's and O's -Fall precautions -Activity OOB ad ella -PT assisting with ambulation -Case management assisting with discharge disposition (Leena Johnston MD R2) Problem Qualifiers (1) Hypertension: Qualified Codes: I10 - Essential (primary) hypertension (2) Diabetes: Leena Johnston MD R2 Jul 03, 2017 07:28 Irene Davis MD Jul 09, 2017 14:16
[2017-07-03 08:00] VITALS: BP 100/59; PULSE 67; RESP 20; TEMP 98.4; O2SAT 100
[2017-07-03] MEDS: VITAMIN B CMPLX/VITC/FOLIC AC CAP PO SCH (08:39)
[2017-07-03] MEDS: LEVOFLOXACIN 250 MG TAB PO SCH (08:39)
[2017-07-03] MEDS: NICOTINE 7 MG/24 HR PATCH T-DERMAL SCH (08:39)
[2017-07-03] MEDS: APIXABAN 2.5 MG TABLET PO SCH ×2 (08:39→20:49)
[2017-07-03] MEDS: PANTOPRAZOLE SOD 40 MG DELAYED RELEASE TAB PO SCH (08:39)
[2017-07-03] MEDS: LISINOPRIL 20 MG TAB PO SCH (08:39)
[2017-07-03] MEDS: CARVEDILOL 12.5 MG TAB PO SCH ×2 (08:39→20:48)
[2017-07-03] MEDS: CHOLECALCIFEROL (VIT D3) 5000 UNIT CAP PO SCH (08:40)
[2017-07-03] MEDS: LACTOBACILLUS ACIDOPHILUS TAB PO SCH ×2 (08:40→20:49)
[2017-07-03] MEDS: CLOPIDOGREL 75 MG TAB PO SCH (08:40)
[2017-07-03] MEDS: MORPHINE SULFATE 15 MG CONTROLLED RELEASE TAB PO SCH ×2 (08:40→20:49)
[2017-07-03] MEDS: SEVELAMER CARBONATE 800 MG TAB PO SCH ×3 (08:40→17:45)
[2017-07-03] MEDS: POLYETHYLENE GLYCOL 17 GM PKG PO SCH (08:41)
[2017-07-03] MEDS: INSULIN ASPART SUPPLEMENTAL SCALE SQ SCH ×4 (08:41→20:50)
[2017-07-03] MEDS: INSULIN DETEMIR 100 UNITS/ML VIAL SQ SCH ×2 (08:41→20:49)
[2017-07-03] MEDS: SODIUM CHLORIDE 0.9% FLUSH 10 ML FLUSH IV FLUSH SCH ×2 (08:41→20:49)
[2017-07-03] MEDS: DOCUSATE SODIUM 50 MG/SENNA 8.6 MG TAB PO SCH ×2 (08:41→20:49)
[2017-07-03] MEDS: SERTRALINE HCL 100 MG TAB PO SCH (08:42)
[2017-07-03 12:00] VITALS: BP 107/55; PULSE 68; RESP 20; TEMP 98; O2SAT 100
--- NOTE | 2017-07-03 12:23 | HHI.NPPN ---
Subjective History of Present Illness Patient is a 47-year-old the female with history of end-stage renal disease, diabetes, blindness, peripheral vascular disease, calciphylaxis, ischemic left foot, previous right BKA who has certainly admitted with the chest pain she's described the pain in the left side radiating to his left shoulder, patient has similar complaints a few weeks ago, and was discharged after workup She goes to dialysis on Saturday, Saturday and Saturday Additional Remarks no acute complaints, aches and pains Review of Systems Gastrointestinal Gastrointestinal: Abdominal Pain Objective Data Data Vital Signs Date Time Temp Pulse Resp B/P (MAP) Pulse Ox O2 Delivery O2 Flow Rate FiO2 07/03/17 10:02 Room Air 21 07/03/17 08:00 98.4 67 20 100/59 (73) 100 07/03/17 04:34 98.2 77 16 105/57 (73) 99 07/02/17 23:34 97.5 67 16 126/56 (79) 100 07/02/17 21:01 Nasal Cannula 2.00 07/02/17 19:53 98.1 75 16 112/54 (73) 95 07/02/17 17:25 97.8 73 18 114/66 (82) 100 -: 07/03/17 0435 07/03/17 0435 Physical Exam General Appearance: Well Developed, Well Nourished Neck Neck Exam: Neck Supple Pulmonary Resp Exam: Clear Bilaterally, Breath Sounds Equal Cardiology CV Exam: Regular Gastrointestinal/Abdomen GI Exam: Soft, Non-Tender, Bowel Sounds Present Extremeties Extremities Exam: Trace Edema Extremeties Remarks ischemic l foot Assessment/Plan Problem List: (1) ESRD (end stage renal disease) on dialysis ICD Codes: N18.6 - End stage renal disease; Z99.2 - Dependence on renal dialysis Status: Chronic Plan: HD MWF outpatient. getting Levaquin fluid Enterobacter/Propionibacterium alert responsive doing well drain is out Holiday schedule for HD -hemodialysis was done yesterday next Saturday (2) Hyperkalemia ICD Codes: E87.5 - Hyperkalemia Status: Acute Plan: improved with HD (3) Calciphylaxis ICD Codes: E83.59 - Other disorders of calcium metabolism Status: Acute Plan: Continue with sodium thiosulfate (4) Peripheral vascular disease ICD Codes: I73.9 - Peripheral vascular disease, unspecified Status: Acute Plan: Had previous procedures done (5) Diabetes ICD Codes: E11.9 - Type 2 diabetes mellitus without complications Status: Chronic Plan: Monitor blood glucose (6) Hypertension ICD Codes: I10 - Essential (primary) hypertension Status: Chronic Plan: Continue to monitor blood pressure (7) Chest pain ICD Codes: R07.9 - Chest pain, unspecified Status: Acute Plan: as above follow VQ scan Problem Qualifiers (1) Diabetes: (2) Hypertension: Qualified Codes: I10 - Essential (primary) hypertension (3) Chest pain: Qualified Codes: R07.9 - Chest pain, unspecified Gerri Gilbert MD Jul 03, 2017 12:23
[2017-07-03 16:00] VITALS: BP 103/52; PULSE 66; RESP 20; TEMP 98.5; O2SAT 96
[2017-07-03 20:34] VITALS: BP 128/61; PULSE 68; RESP 16; TEMP 98.3; O2SAT 100
[2017-07-03] MEDS: REMOVE OLD PATCH T-DERMAL SCH (20:52)
[2017-07-04 00:05] VITALS: BP 129/60; PULSE 72; RESP 16; TEMP 97.7; O2SAT 100
[2017-07-04] MEDS: CLINDAMYCIN 150 MG CAP PO SCH ×4 (00:55→20:40)
[2017-07-04] MEDS: ACETAMINOPHEN 325 MG TAB PO SCH ×4 (00:55→17:42)
[2017-07-04 04:28] VITALS: BP 127/62; PULSE 71; RESP 16; TEMP 98.3; O2SAT 94
[2017-07-04 07:19] LABS: AUTOMATED NEUTROPHIL # 7.8 TH/MM3 (1.8-7.7); BASOPHIL # 0.1 TH/MM3 (0-0.2); BASOPHIL % 0.8 % (0.0-2.0); EOSINOPHIL # 0.2 TH/MM3 (0-0.4); EOSINOPHIL % 2.1 % (0.0-4.0); HEMO FLAGS DIFF FINAL; LYMPH % 11.7 % (9.0-44.0); LYMPHOCYTE # 1.2 TH/MM3 (1.0-4.8); MEAN CELL VOLUME 94.5 FL (80.0-100.0); MEAN CORPUSCULAR HEMOGLOBIN 30.7 PG (27.0-34.0); MEAN CORPUSCULAR HGB CONC 32.4 % (32.0-36.0); MONO % 8.7 % (0.0-8.0); NEUT % 76.7 % (16.0-70.0); PLATELET COUNT 363 TH/MM3 (150-450); RED BLOOD COUNT 3.71 MIL/MM3 (4.00-5.30); WHITE BLOOD COUNT 10.1 TH/MM3 (4.0-11.0)
[2017-07-04] MEDS: INSULIN ASPART SUPPLEMENTAL SCALE SQ SCH ×4 (07:46→20:42)
[2017-07-04 07:49] LABS: BICARBONATE 27.6 MEQ/L (21.0-32.0); POTASSIUM 4.3 MEQ/L (3.5-5.1)
[2017-07-04 08:00] VITALS: BP 121/56; PULSE 65; RESP 20; TEMP 97.9; O2SAT 98
[2017-07-04] MEDS: CHOLECALCIFEROL (VIT D3) 5000 UNIT CAP PO SCH (08:27)
[2017-07-04] MEDS: VITAMIN B CMPLX/VITC/FOLIC AC CAP PO SCH (08:27)
[2017-07-04] MEDS: LEVOFLOXACIN 250 MG TAB PO SCH (08:27)
[2017-07-04] MEDS: SERTRALINE HCL 100 MG TAB PO SCH (08:27)
[2017-07-04] MEDS: LACTOBACILLUS ACIDOPHILUS TAB PO SCH ×2 (08:27→20:40)
[2017-07-04] MEDS: MORPHINE SULFATE 15 MG CONTROLLED RELEASE TAB PO SCH ×2 (08:27→20:41)
[2017-07-04] MEDS: PANTOPRAZOLE SOD 40 MG DELAYED RELEASE TAB PO SCH (08:28)
[2017-07-04] MEDS: NICOTINE 7 MG/24 HR PATCH T-DERMAL SCH (08:28)
[2017-07-04] MEDS: APIXABAN 2.5 MG TABLET PO SCH ×2 (08:28→20:41)
[2017-07-04] MEDS: SEVELAMER CARBONATE 800 MG TAB PO SCH ×3 (08:28→17:43)
[2017-07-04] MEDS: CLOPIDOGREL 75 MG TAB PO SCH (08:28)
[2017-07-04] MEDS: CARVEDILOL 12.5 MG TAB PO SCH ×2 (08:32→20:41)
[2017-07-04] MEDS: LISINOPRIL 20 MG TAB PO SCH (08:32)
[2017-07-04] MEDS: DOCUSATE SODIUM 50 MG/SENNA 8.6 MG TAB PO SCH ×2 (08:32→20:41)
[2017-07-04] MEDS: POLYETHYLENE GLYCOL 17 GM PKG PO SCH (08:32)
[2017-07-04] MEDS: SODIUM CHLORIDE 0.9% FLUSH 10 ML FLUSH IV FLUSH SCH ×2 (08:33→20:41)
[2017-07-04] MEDS: INSULIN DETEMIR 100 UNITS/ML VIAL SQ SCH ×2 (08:33→20:42)
[2017-07-04 12:00] VITALS: BP 106/53; PULSE 68; RESP 20; TEMP 98; O2SAT 90
--- NOTE | 2017-07-04 15:29 | HHI.FPPN ---
Subjective Remarks Patient sitting up in bed. Not in any pain. She reports visual hallucinations today, namely in the form of seeing shadows. She states she has seen shadows in the past, but that this time they are really causing her to experience fear. She keeps thinking something or somebody is in the room but knows there's not anyone there. She is tearful and states that her uncle just in this same hospital yesterday. She is also upset and wants to know why she seems to be getting worse, and does not understand why she feels worse if her lab values have improved. She had dialysis Saturday and is due again tomorrow. The site where the drain was removed is no longer swollen, and there is no drainage from the site. She has no other complaints this morning. (Benedict Torres MD R3) Objective Vitals Vital Signs Date Time Temp Pulse Resp B/P (MAP) Pulse Ox O2 Delivery O2 Flow Rate FiO2 07/04/17 12:00 98.0 68 20 106/53 (70) 90 07/04/17 08:42 Nasal Cannula 2.00 07/04/17 08:00 97.9 65 20 121/56 (77) 98 07/04/17 04:28 98.3 71 16 127/62 (83) 94 07/04/17 00:05 97.7 72 16 129/60 (83) 100 07/03/17 20:58 Nasal Cannula 2.00 07/03/17 20:34 98.3 68 16 128/61 (83) 100 07/03/17 16:00 98.5 66 20 103/52 (69) 96 I/O 07/03/17 07/03/17 07/03/17 07/04/17 07/04/17 07/04/17 07:00 15:00 23:00 07:00 15:00 23:00 Intake Total 240 ml 240 ml 240 ml Output Total 0 ml Balance 240 ml 240 ml 240 ml Intake Oral 240 ml 240 ml 240 ml Output Urine Total 0 ml # Voids 0 0 # Bowel Movements 0 2 1 (Benedict Torres MD R3) Result Diagram: 07/04/1751407/04/1715 Objective Remarks General: Sitting up in bed, eyes darting around room, tearful today, reporting visual hallucinations, namely seeing shadows and having sensations someone is in the room. 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 Poor dentition. MMM. Neck: Supple CV: RRR, no murmurs, rubs, or gallops, no edema. Lungs: CTAB, no wheezing, rales, or rhonchi. Abdomen: Soft, nontender, normal bowel sounds, no guarding. Drain exit site wound is covered in dressing, no obvious drainage, swelling is minimal. No pain on palpation of this site. Neuro: Alert and oriented, EOMI, PERRLA Psych: Seeing shadows and feeling presence of someone in room, tearful, upset about her uncle recently passing away, feels sad, no suicidal ideation/ intention. Procedures splenic abscess drain by IR 06/20/17. Removed on 07/01/17. (Benedict Torres MD R3) A/P Assessment and Plan 47-year-old female with a past medical history of end-stage renal disease on HD MWF, diabetes, hypertension, PAD, recently discharged from the hospital on 03 June where she was found to have an acute splenic infarction, presented with a one-day history of chest pain and left shoulder pain as well as elevated potassium and creatinine. She was admitted to the hospital for dialysis and ACS rule out and was found to have a splenic abscess identified on CTA performed on 06/19/17. Splenic abscess drain was placed by IR on 06/21 and wound cx grew Propionbacterium and Enterobacter cloacae. ID is assisting with antibiotic management and is currently on Levaquin PO and PO Clindamycin; IR removed the splenic abscess drain on 07/01 although she still has a 4cm fluid collection. The plan is to observe her for signs of clinical improvement. If her clinical status worsens, will consider repeating the CT and will decide on reinsertion at that time. Otherwise, will need a repeat CT in several weeks to reevaluate the abscess. Discharge Planning Pending resolution of splenic abscess, stable vital signs, safe discharge, psychiatric evaluation for visual hallucinations. (Benedict Torres MD R3) Attending Attestation Patient seen and examined. Case reviewed and discussed Agree with plan of care as discussed with me and documented in the resident note. (Irene Davis MD) Problem List: (1) Visual hallucinations ICD Codes: R44.1 - Visual hallucinations Status: Acute Plan: New onset visual hallucinations this morning, differential includes metabolic encephalopathy, acute stress reaction to uncle's passing away, visual disturbances due to visual impairment, depression, acute psychosis, malingering. - Consult psychiatry for evaluation. - Monitor laboratory values, electrolytes. (2) Splenic abscess ICD Codes: D73.3 - Abscess of spleen Status: Acute Plan: CTA performed on 06/19 showed interval development of air-containing fluid collection in the spleen measuring up to 6.9 x 3.0 cm in maximal dimension with subcapsular fluid in region of prior splenic infarction, concerning for splenic abscess. No significant aortic or mesenteric stenoses identified. Interventional radiology drained abscess 06/20/17. Cultures of drained abscess fluid growing propionibacterium and collins-sensitive Enterobacter cloacae. Blood cultures negative. Soft tissue US around splenic abscess drain shows a small collection of fluid, approx 1cm x 1cm. CT abdomen/pelvis 07/01 shows retraction of splenic drainage catheter with subcapsular air containing fluid collection 2.3 x 3.9 x 2.2cm. Drain was removed on 07/02. - ID on board -continue Levaquin 250 mg PO daily and clindamycin 300 mg PO Q6h. - Tylenol 650 PO q6hrs - Oramorph 15mg PO q12hr - Will need repeat CT in 3-4 weeks to assess abscess. (3) ESRD (end stage renal disease) on dialysis ICD Codes: N18.6 - End stage renal disease; Z99.2 - Dependence on renal dialysis Status: Chronic Plan: - Hemodialysis MWF per nephrology recommendations based on holiday schedule, Dr. Gilbert on board. - Avoid nephrotoxic agents - Monitor electrolytes - Continue Sevelamer, monitor calcium/phosphate (4) Hypertension ICD Codes: I10 - Essential (primary) hypertension Status: Chronic Plan: -Continue home medications: Coreg, and lisinopril with hold parameters for low blood pressure and/or bradycardia (5) Diabetes ICD Codes: E11.9 - Type 2 diabetes mellitus without complications Status: Chronic Plan: -Levemir 5 units BID -Continue glucose monitoring with SSI - does not have much SSI requirement (6) Peripheral vascular disease ICD Codes: I73.9 - Peripheral vascular disease, unspecified Status: Acute Plan: - Continue clopidogrel 75 mg PO daily (7) Calciphylaxis ICD Codes: E83.59 - Other disorders of calcium metabolism Status: Acute Plan: -Continue thiosulfate per nephrology (8) Tobacco abuse ICD Codes: Z72.0 - Tobacco use Status: Chronic Plan: -Nicotine patch 7 mg (9) Physical deconditioning ICD Codes: R53.81 - Other malaise Status: Chronic Plan: -PT assisting with ambulation and exercises (10) Hyperphosphatemia ICD Codes: E83.39 - Other disorders of phosphorus metabolism Status: Resolved Plan: -Restarted Renvela 3200mg TID on 06/20 -Follow phosphorus level intermittently (11) Chronic Medical Problems Status: Chronic Plan: Diabetic neuropathy: Consider resuming gabapentin today Hyperlipidemia: Continue Atorvastatin, Pravastatin Anxiety/Depression: Continue sertraline 100 mg by mouth daily. Consider resuming trazodone (12) FEN/DVT PPX/GI PPX/Nursing Orders Plan: Fluids: Oral fluids only, on hemodialysis Electrolytes: Will monitor and replace as needed Nutrition: Renal diet DVT Prophylaxis: Eliquis 2.5 mg by mouth twice a day PRN Medications Zofran 4 mg IV push every 6 hours when necessary nausea vomiting Oramorph 15mg q12h for pain Tylenol 1g IV q6h for pain Benadryl 25 mg by mouth to 4 hours when necessary for itching -Vitals Q4h -Monitor I's and O's -Fall precautions -Activity OOB ad ella -PT assisting with ambulation -Case management assisting with discharge disposition (Benedict Torres MD R3) Problem Qualifiers (1) Hypertension: Qualified Codes: I10 - Essential (primary) hypertension (2) Diabetes: Benedict Torres MD R3 Jul 04, 2017 15:29 Irene Davis MD Jul 09, 2017 14:16
--- NOTE | 2017-07-04 15:50 | HHI.NPPN ---
Subjective History of Present Illness Patient is a 47-year-old the female with history of end-stage renal disease, diabetes, blindness, peripheral vascular disease, calciphylaxis, ischemic left foot, previous right BKA who has certainly admitted with the chest pain she's described the pain in the left side radiating to his left shoulder, patient has similar complaints a few weeks ago, and was discharged after workup She goes to dialysis on Saturday, Saturday and Saturday Additional Remarks no acute complaints, aches and pains Review of Systems Gastrointestinal Gastrointestinal: Abdominal Pain Objective Data Data Vital Signs Date Time Temp Pulse Resp B/P (MAP) Pulse Ox O2 Delivery O2 Flow Rate FiO2 07/04/17 12:00 98.0 68 20 106/53 (70) 90 07/04/17 08:42 Nasal Cannula 2.00 07/04/17 08:00 97.9 65 20 121/56 (77) 98 07/04/17 04:28 98.3 71 16 127/62 (83) 94 07/04/17 00:05 97.7 72 16 129/60 (83) 100 07/03/17 20:58 Nasal Cannula 2.00 07/03/17 20:34 98.3 68 16 128/61 (83) 100 07/03/17 16:00 98.5 66 20 103/52 (69) 96 -: 07/04/17 0515 07/04/17 0515 Physical Exam General Appearance: Well Developed, Well Nourished Neck Neck Exam: Neck Supple Pulmonary Resp Exam: Clear Bilaterally, Breath Sounds Equal Cardiology CV Exam: Regular Gastrointestinal/Abdomen GI Exam: Soft, Non-Tender, Bowel Sounds Present Extremeties Extremities Exam: Trace Edema Extremeties Remarks ischemic l foot Assessment/Plan Problem List: (1) ESRD (end stage renal disease) on dialysis ICD Codes: N18.6 - End stage renal disease; Z99.2 - Dependence on renal dialysis Status: Chronic Plan: HD MWF outpatient. getting Levaquin fluid Enterobacter/Propionibacterium alert responsive c/o hallucination getting narcotic pain medication MS 15 q 12 told her likely side effects doing well drain is out Holiday schedule for HD -hemodialysis was done Saturday next Saturday (2) Hyperkalemia ICD Codes: E87.5 - Hyperkalemia Status: Acute Plan: improved with HD (3) Calciphylaxis ICD Codes: E83.59 - Other disorders of calcium metabolism Status: Acute Plan: Continue with sodium thiosulfate (4) Peripheral vascular disease ICD Codes: I73.9 - Peripheral vascular disease, unspecified Status: Acute Plan: Had previous procedures done (5) Diabetes ICD Codes: E11.9 - Type 2 diabetes mellitus without complications Status: Chronic Plan: Monitor blood glucose (6) Hypertension ICD Codes: I10 - Essential (primary) hypertension Status: Chronic Plan: Continue to monitor blood pressure (7) Chest pain ICD Codes: R07.9 - Chest pain, unspecified Status: Acute Plan: as above follow VQ scan Problem Qualifiers (1) Diabetes: (2) Hypertension: Qualified Codes: I10 - Essential (primary) hypertension (3) Chest pain: Qualified Codes: R07.9 - Chest pain, unspecified Gerri Gilbert MD Jul 04, 2017 15:50
[2017-07-04 16:00] VITALS: BP 139/62; PULSE 64; RESP 20; TEMP 98.5; O2SAT 97
[2017-07-04 20:00] VITALS: BP 115/55; PULSE 70; RESP 20; TEMP 98; O2SAT 95
[2017-07-04] MEDS: REMOVE OLD PATCH T-DERMAL SCH (20:42)
[2017-07-05] VITALS: BP 142/58; PULSE 74; RESP 20; TEMP 98.1
[2017-07-05] MEDS: ACETAMINOPHEN 325 MG TAB PO SCH ×2 (00:54→05:48)
[2017-07-05] MEDS: CLINDAMYCIN 150 MG CAP PO SCH ×2 (02:01→08:27)
[2017-07-05 04:00] VITALS: BP 115/57; PULSE 72; RESP 20; TEMP 98.2; O2SAT 95
[2017-07-05 07:09] LABS: AUTOMATED NEUTROPHIL # 8.5 TH/MM3 (1.8-7.7); BASOPHIL # 0.1 TH/MM3 (0-0.2); BASOPHIL % 0.7 % (0.0-2.0); EOSINOPHIL # 0.2 TH/MM3 (0-0.4); EOSINOPHIL % 2.1 % (0.0-4.0); HEMATOCRIT 34.3 % (35.0-46.0); HEMO FLAGS DIFF FINAL; LYMPH % 8.9 % (9.0-44.0); MEAN CELL VOLUME 94.5 FL (80.0-100.0); MEAN CORPUSCULAR HEMOGLOBIN 31.1 PG (27.0-34.0); MEAN CORPUSCULAR HGB CONC 32.9 % (32.0-36.0); MONO % 9.9 % (0.0-8.0); NEUT % 78.4 % (16.0-70.0); PLATELET COUNT 324 TH/MM3 (150-450); RED BLOOD COUNT 3.64 MIL/MM3 (4.00-5.30); RED CELL DISTRIBUTION WIDTH 17.5 % (11.6-17.2); WHITE BLOOD COUNT 10.8 TH/MM3 (4.0-11.0)
[2017-07-05 07:29] LABS: BICARBONATE 28.6 MEQ/L (21.0-32.0); POTASSIUM 5.1 MEQ/L (3.5-5.1)
[2017-07-05] MEDS: INSULIN ASPART SUPPLEMENTAL SCALE SQ SCH ×2 (08:00→11:45)
[2017-07-05 08:04] VITALS: BP 137/61; PULSE 67; RESP 19; TEMP 97.7; O2SAT 92
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
[2017-07-05] MEDS: SERTRALINE HCL 100 MG TAB PO SCH (08:25)
[2017-07-05] MEDS: CHOLECALCIFEROL (VIT D3) 5000 UNIT CAP PO SCH (08:25)
[2017-07-05] MEDS: VITAMIN B CMPLX/VITC/FOLIC AC CAP PO SCH (08:25)
[2017-07-05] MEDS: DOCUSATE SODIUM 50 MG/SENNA 8.6 MG TAB PO SCH (08:26)
[2017-07-05] MEDS: MORPHINE SULFATE 15 MG CONTROLLED RELEASE TAB PO SCH (08:26)
[2017-07-05] MEDS: CLOPIDOGREL 75 MG TAB PO SCH (08:26)
[2017-07-05] MEDS: APIXABAN 2.5 MG TABLET PO SCH (08:27)
[2017-07-05] MEDS: PANTOPRAZOLE SOD 40 MG DELAYED RELEASE TAB PO SCH (08:27)
[2017-07-05] MEDS: LEVOFLOXACIN 250 MG TAB PO SCH (08:27)
[2017-07-05] MEDS: LACTOBACILLUS ACIDOPHILUS TAB PO SCH (08:27)
[2017-07-05] MEDS: LISINOPRIL 20 MG TAB PO SCH (08:27)
[2017-07-05] MEDS: CARVEDILOL 12.5 MG TAB PO SCH (08:27)
[2017-07-05] MEDS: NICOTINE 7 MG/24 HR PATCH T-DERMAL SCH (08:28)
[2017-07-05] MEDS: SEVELAMER CARBONATE 800 MG TAB PO SCH (08:28)
[2017-07-05] MEDS: INSULIN DETEMIR 100 UNITS/ML VIAL SQ SCH (08:29)
[2017-07-05] MEDS: POLYETHYLENE GLYCOL 17 GM PKG PO SCH (09:00)
[2017-07-05] MEDS: SODIUM CHLORIDE 0.9% FLUSH 10 ML FLUSH IV FLUSH SCH (09:00)
[2017-07-05] MEDS ORDERED: LEVEMIR SQ (10:30)
[2017-07-05] MEDS ORDERED: LEVA250T14 PO (10:32)
[2017-07-05] MEDS ORDERED: CLIN150 PO (10:32)
--- NOTE | 2017-07-05 11:10 | HHI.NPPN ---
Subjective History of Present Illness Patient is a 47-year-old the female with history of end-stage renal disease, diabetes, blindness, peripheral vascular disease, calciphylaxis, ischemic left foot, previous right BKA who has certainly admitted with the chest pain she's described the pain in the left side radiating to his left shoulder, patient has similar complaints a few weeks ago, and was discharged after workup She goes to dialysis on Saturday, Saturday and Saturday Additional Remarks no acute complaints, aches and pains Review of Systems Gastrointestinal Gastrointestinal: Abdominal Pain Objective Data Data Vital Signs Date Time Temp Pulse Resp B/P (MAP) Pulse Ox O2 Delivery O2 Flow Rate FiO2 07/05/17 08:04 97.7 67 19 137/61 (86) 92 07/05/17 04:00 98.2 72 20 115/57 (76) 95 07/05/17 00:00 98.1 74 20 142/58 (86) 07/04/17 20:00 98.0 70 20 115/55 (75) 95 07/04/17 20:00 Room Air 07/04/17 16:00 98.5 64 20 139/62 (87) 97 07/04/17 12:00 98.0 68 20 106/53 (70) 90 -: 07/05/17 0656 07/05/17 0656 Physical Exam General Appearance: Well Developed, Well Nourished Neck Neck Exam: Neck Supple Pulmonary Resp Exam: Clear Bilaterally, Breath Sounds Equal Cardiology CV Exam: Regular Gastrointestinal/Abdomen GI Exam: Soft, Non-Tender, Bowel Sounds Present Extremeties Extremities Exam: Trace Edema Extremeties Remarks ischemic l foot Assessment/Plan Problem List: (1) ESRD (end stage renal disease) on dialysis ICD Codes: N18.6 - End stage renal disease; Z99.2 - Dependence on renal dialysis Status: Chronic Plan: HD MWF outpatient. c/o hallucination getting narcotic pain medication MS 15 q 12 told her likely side effects getting Levaquin fluid Enterobacter/Propionibacterium alert responsive doing well drain is out Holiday schedule for HD -hemodialysis was done Saturday next Saturday/today wants to go home (2) Hyperkalemia ICD Codes: E87.5 - Hyperkalemia Status: Acute Plan: improved with HD (3) Calciphylaxis ICD Codes: E83.59 - Other disorders of calcium metabolism Status: Acute Plan: Continue with sodium thiosulfate (4) Peripheral vascular disease ICD Codes: I73.9 - Peripheral vascular disease, unspecified Status: Acute Plan: Had previous procedures done (5) Diabetes ICD Codes: E11.9 - Type 2 diabetes mellitus without complications Status: Chronic Plan: Monitor blood glucose (6) Hypertension ICD Codes: I10 - Essential (primary) hypertension Status: Chronic Plan: Continue to monitor blood pressure (7) Chest pain ICD Codes: R07.9 - Chest pain, unspecified Status: Acute Plan: as above follow VQ scan Problem Qualifiers (1) Diabetes: (2) Hypertension: Qualified Codes: I10 - Essential (primary) hypertension (3) Chest pain: Qualified Codes: R07.9 - Chest pain, unspecified Gerri Gilbert MD Jul 05, 2017 11:10
[2017-07-05 12:04] VITALS: BP 136/60; PULSE 68; RESP 18; TEMP 97.6; O2SAT 93
--- NOTE | 2017-07-05 13:22 | HHI.FPPN ---
Subjective Remarks Ms Laguerre had no acute events overnight. She tells us she is ready to go home today after dialysis. We discussed sending antibiotic Rxs to her pharmacy so her mother could picking crew supervisor prior to picking up Ms Laguerre. Also discussed her getting follow-up CT abdomen/pelvis in 4 weeks when she finishes abx so we can assess whether abscess had resolved. She will discharge after dialysis today. Denies CP, SOB, N/V/D and DVT pain. Still has smaller interval pain where abscess drain was placed, but well controlled. (Jaylan Grey MD R1) Objective Vitals Vital Signs Date Time Temp Pulse Resp B/P (MAP) Pulse Ox O2 Delivery O2 Flow Rate FiO2 07/05/17 08:04 97.7 67 19 137/61 (86) 92 07/05/17 04:00 98.2 72 20 115/57 (76) 95 07/05/17 00:00 98.1 74 20 142/58 (86) 07/04/17 20:00 98.0 70 20 115/55 (75) 95 07/04/17 20:00 Room Air 07/04/17 16:00 98.5 64 20 139/62 (87) 97 I/O 07/04/17 07/04/17 07/04/17 07/05/17 07/05/17 07/05/17 06:59 14:59 22:59 06:59 14:59 22:59 Intake Total 240 ml 720 ml Balance 240 ml 720 ml Intake Oral 240 ml 720 ml # Voids 0 0 # Bowel Movements 1 2 (Jaylan Grey MD R1) Result Diagram: 07/05/1756 07/05/1756 Objective Remarks General: Sitting up in bed, eyes darting around room, tearful today, reporting visual hallucinations, namely seeing shadows and having sensations someone is in the room. 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 Poor dentition. MMM. Neck: Supple CV: RRR, no murmurs, rubs, or gallops, no edema. Lungs: CTAB, no wheezing, rales, or rhonchi. Abdomen: Soft, nontender, normal bowel sounds, no guarding. Drain exit site wound is covered in dressing, no obvious drainage, swelling is minimal. No pain on palpation of this site. Neuro: Alert and oriented, EOMI, PERRLA Psych: Seeing shadows and feeling presence of someone in room, tearful, upset about her uncle recently passing away, feels sad, no suicidal ideation/ intention. Procedures splenic abscess drain by IR 06/20/17. Removed on 07/01/17. Medications and IVs Current Medications Medications (Trade) Dose Ordered Sig/Jen Route Start Time Stop Time Status Last Admin Sodium Chloride 1,000 ml @ 0 mls/hr Q0M PRN OTHER 06/17/17 13:27 06/30/17 12:15 (Heparin Inj) 8,000 units UNSCH PRN IV FLUSH 06/17/17 13:30 Sodium Chloride 1,000 ml @ 200 mls/hr Q5H PRN IV 06/17/17 13:27 07/02/17 14:30 Sodium Chloride 1,000 ml @ 0 mls/hr Q0M PRN OTHER 06/17/17 13:27 (Mannitol Inj) 12.5 gm UNSCH PRN IV 06/17/17 13:30 Albumin Human 100 ml @ 60 mls/hr UNSCH PRN IV 06/17/17 13:30 06/26/17 11:55 (NS Flush) 5 ml UNSCH PRN IV FLUSH 06/17/17 13:30 (Heparin Inj) UNSCH PRN .XX 06/17/17 13:30 (Gentamicin (Dialysis) Inj) 20 mg UNSCH PRN OTHER 06/17/17 13:30 (Zofran Inj) 4 mg UNSCH PRN IV PUSH 06/17/17 13:30 07/02/17 14:29 (Nitrostat Sl) 0.4 mg UNSCH PRN SL 06/17/17 13:30 (Catapres) 0.1 mg UNSCH PRN PO 06/17/17 13:30 (Epogen Inj) 4,000 units UNSCH PRN IV PUSH 06/17/17 13:30 07/02/17 14:27 (Gelfoam 12 Mm/7 Mm Top) 1 foam UNSCH PRN TOP 06/17/17 13:30 07/02/17 14:25 Sodium Thiosulfate 86301 mg/Sterile Water 200 ml @ 150 mls/hr WITH DIALYSIS PRN IV 06/17/17 13:30 06/30/17 12:15 (NS Flush) 2 ml UNSCH PRN IV FLUSH 06/17/17 14:45 (NS Flush) 2 ml BID IV FLUSH 06/17/17 21:00 07/05/17 09:00 (Zofran Inj) 4 mg Q6H PRN IVP 06/17/17 18:00 (Narcan Inj) 0.4 mg UNSCH PRN IV PUSH 06/17/17 14:45 (Areli-Colace) 2 tab BID PO 06/17/17 21:00 07/05/17 08:26 (D50w (Vial) Inj) 50 ml UNSCH PRN IV PUSH 06/17/17 15:00 (Glucagon Inj) 1 mg UNSCH PRN OTHER 06/17/17 15:00 (NovoLOG SUPPLEMENTAL SCALE) 1 ACHS SLIDING SCALE SQ 06/17/17 17:00 07/03/17 20:50 (Coreg) 25 mg BID PO 06/17/17 21:00 07/05/17 08:27 (Vitamin D3) 5,000 units DAILY PO 06/18/17 09:00 07/05/17 08:25 (Zoloft) 100 mg DAILY PO 06/18/17 09:00 07/05/17 08:25 (Nephrocaps) 1 cap DAILY PO 06/18/17 09:00 07/05/17 08:25 (Protonix) 40 mg DAILY PO 06/17/17 15:00 07/05/17 08:27 (Habitrol 7 Mg Patch.24 Hr) 1 patch DAILY T-DERMAL 06/18/17 09:00 07/05/17 08:28 Miscellaneous Information 1 HS T-DERMAL 06/17/17 21:00 07/04/17 20:42 (Desyrel) 50 mg HS PO 06/19/17 21:00 Future Hold 06/20/17 21:24 (Miralax) 17 gm DAILY PO 06/20/17 09:00 07/02/17 08:59 (Levemir Inj) 5 units BID SQ 06/20/17 21:00 07/05/17 08:29 (Renvela) 3,200 mg TIDPC PO 06/20/17 18:30 07/05/17 08:28 (Plavix) 75 mg DAILY PO 06/23/17 09:00 07/05/17 08:26 (Eliquis) 2.5 mg BID PO 06/22/17 21:00 07/05/17 08:27 (Norvasc) 5 mg DAILY PO 06/24/17 09:00 Future Hold 06/30/17 09:46 (Prinivil) 20 mg DAILY PO 06/24/17 09:00 07/05/17 08:27 (Lactinex) 1 tab Q12HR PO 06/26/17 09:00 07/05/17 08:27 (Oramorph Sr) 15 mg Q12HR PO 06/26/17 12:15 07/05/17 08:26 (Tylenol) 650 mg Q6HR PO 06/30/17 18:00 07/05/17 05:48 (Cleocin) 300 mg Q6H PO 07/01/17 14:00 07/29/17 23:00 07/05/17 08:27 (Benadryl) 25 mg Q4H PRN PO 07/01/17 21:30 07/02/17 06:23 (Levaquin) 250 mg DAILY PO 07/02/17 14:00 07/29/17 23:00 07/05/17 08:27 (Jaylan Grey MD R1) Urinary Catheter: No (Jaylan Grey MD R1) A/P Assessment and Plan 47-year-old female with a past medical history of end-stage renal disease on HD MWF, diabetes, hypertension, PAD, recently discharged from the hospital on 03 June where she was found to have an acute splenic infarction, presented with a one-day history of chest pain and left shoulder pain as well as elevated potassium and creatinine. She was admitted to the hospital for dialysis and ACS rule out and was found to have a splenic abscess identified on CTA performed on 06/19/17. Splenic abscess drain was placed by IR on 06/21 and wound cx grew Propionbacterium and Enterobacter cloacae. ID is assisting with antibiotic management and is currently on Levaquin PO and PO Clindamycin; IR removed the splenic abscess drain on 07/01 although she still has a small fluid collection. The plan is to observe her for signs of clinical improvement Improved today and ready to discharge. Will go home on PO antibiotics as above and repeat CT abdomen/pelvis in 4 weeks to reevaluate resolution of the abscess. Seen and discussed with Dr Davis Discharge Planning Pending resolution of splenic abscess, stable vital signs, safe discharge, psychiatric evaluation for visual hallucinations. (Jaylan Grey MD R1) Attending Attestation Patient seen and examined. Case reviewed and discussed Agree with plan of care as discussed with me and documented in the resident note. (Irene Davis MD) Problem List: (1) Visual hallucinations ICD Codes: R44.1 - Visual hallucinations Status: Acute Plan: No hallucinations this morning. New onset visual hallucinations 07/04, differential includes metabolic encephalopathy, acute stress reaction to uncle' s passing away, visual disturbances due to visual impairment, depression, acute psychosis, malingering. - Consulted psychiatry who saw and believe cause 2/2 delirium and/or metabolic encephalopathy - Monitor laboratory values, electrolytes. (2) Splenic abscess ICD Codes: D73.3 - Abscess of spleen Status: Acute Plan: CTA performed on 06/19 showed interval development of air-containing fluid collection in the spleen measuring up to 6.9 x 3.0 cm in maximal dimension with subcapsular fluid in region of prior splenic infarction, concerning for splenic abscess. No significant aortic or mesenteric stenoses identified. Interventional radiology drained abscess 06/20/17. Cultures of drained abscess fluid growing propionibacterium and collins-sensitive Enterobacter cloacae. Blood cultures negative. Soft tissue US around splenic abscess drain shows a small collection of fluid, approx 1cm x 1cm. CT abdomen/pelvis 07/01 shows retraction of splenic drainage catheter with subcapsular air containing fluid collection 2.3 x 3.9 x 2.2cm. Drain was removed on 07/02. - ID on board -continue Levaquin 250 mg PO daily and clindamycin 300 mg PO Q6h - Tylenol 650 PO q6hrs - Oramorph 15mg PO q12hr - Repeat CT in 3-4 weeks to assess abscess as outpt (3) ESRD (end stage renal disease) on dialysis ICD Codes: N18.6 - End stage renal disease; Z99.2 - Dependence on renal dialysis Status: Chronic Plan: - Hemodialysis MWF per nephrology recommendations based on holiday schedule, Dr. Gilbert on board. - Avoid nephrotoxic agents - Monitor electrolytes - Continue Sevelamer, monitor calcium/phosphate (4) Hypertension ICD Codes: I10 - Essential (primary) hypertension Status: Chronic Plan: -Continue home medications: Coreg, and lisinopril with hold parameters for low blood pressure and/or bradycardia (5) Diabetes ICD Codes: E11.9 - Type 2 diabetes mellitus without complications Status: Chronic Plan: -Levemir 5 units BID -Continue glucose monitoring with SSI - does not have much SSI requirement (6) Peripheral vascular disease ICD Codes: I73.9 - Peripheral vascular disease, unspecified Status: Acute Plan: - Continue clopidogrel 75 mg PO daily (7) Calciphylaxis ICD Codes: E83.59 - Other disorders of calcium metabolism Status: Acute Plan: -Continue thiosulfate per nephrology (8) Tobacco abuse ICD Codes: Z72.0 - Tobacco use Status: Chronic Plan: -Nicotine patch 7 mg (9) Physical deconditioning ICD Codes: R53.81 - Other malaise Status: Chronic Plan: -PT assisting with ambulation and exercises (10) Hyperphosphatemia ICD Codes: E83.39 - Other disorders of phosphorus metabolism Status: Resolved Plan: -Restarted Renvela 3200mg TID on 06/20 -Follow phosphorus level intermittently (11) Chronic Medical Problems Status: Chronic Plan: Diabetic neuropathy: no complaint of neuropathic pain; discharging home without gabapentin as not needed at this time; consider restart as outpt if required Hyperlipidemia: Continue Atorvastatin, Pravastatin Anxiety/Depression: Continue sertraline 100 mg by mouth daily. Discontinued trazodone due to waxing/waning delirium (12) FEN/DVT PPX/GI PPX/Nursing Orders Plan: Fluids: Oral fluids only, on hemodialysis Electrolytes: Will monitor and replace as needed Nutrition: Renal diet DVT Prophylaxis: Eliquis 2.5 mg by mouth twice a day PRN Medications Zofran 4 mg IV push every 6 hours when necessary nausea vomiting Oramorph 15mg q12h for pain Tylenol 1g IV q6h for pain Benadryl 25 mg by mouth to 6 hours when necessary for itching -Vitals Q4h -Monitor I's and O's -Fall precautions -Activity OOB ad ella -PT assisting with ambulation -Case management assisting with discharge disposition (Jaylan Grey MD R1) Problem Qualifiers (1) Hypertension: Qualified Codes: I10 - Essential (primary) hypertension (2) Diabetes: Jaylan Grey MD R1 Jul 05, 2017 13:22 Irene Davis MD Jul 09, 2017 14:15
[2017-07-05] MEDS: SODIUM THIOSULFATE INJ 25,000 MG in WATER STERILE FOR INJ 100 ML IV PRN (14:33)
--- NOTE | 2017-07-07 14:59 | HHI.DS ---
Discharge Summary Admission Date Jun 17, 2017 at 13:30 Discharge Date: Jul 05, 2017 Admitting Diagnosis chest pain, hyperkalemia, ESRD on dialysis (1) Splenic abscess Diagnosis: Principal ICD Codes: D73.3 - Abscess of spleen Status: Acute (2) ESRD (end stage renal disease) on dialysis Diagnosis: Principal ICD Codes: N18.6 - End stage renal disease; Z99.2 - Dependence on renal dialysis Status: Chronic (3) Hypertension Diagnosis: Secondary ICD Codes: I10 - Essential (primary) hypertension Status: Chronic (4) Diabetes Diagnosis: Secondary Plan: -Levemir 5 units BID -Continue glucose monitoring with SSI - does not have much SSI requirement ICD Codes: E11.9 - Type 2 diabetes mellitus without complications Status: Chronic (5) Peripheral vascular disease Diagnosis: Secondary Plan: - Continue clopidogrel 75 mg PO daily ICD Codes: I73.9 - Peripheral vascular disease, unspecified Status: Acute (6) Calciphylaxis Diagnosis: Secondary ICD Codes: E83.59 - Other disorders of calcium metabolism Status: Acute (7) Visual hallucinations Diagnosis: Secondary ICD Codes: R44.1 - Visual hallucinations Status: Acute (8) Tobacco abuse Diagnosis: Secondary ICD Codes: Z72.0 - Tobacco use Status: Chronic Procedures splenic abscess drain by IR 06/20/17. Removed on 07/01/17. Brief History Patient is a 47-year-old female with a past medical history of end- stage renal disease on hemodialysis Saturday, Saturday, Saturday, hypertension, diabetes, and depression that presents to [facility] emergency department with a chief complaint of chest pain and left shoulder pain of one- day duration. Patient describes the chest pain as 8/10, dull and achy pain and the left shoulder pain as 8/10, dull and achy pain. She states that the chest pain is worse when she takes a deep breath. She states that she took some Loving pain medication which did not help with the pain. She has also had shortness of breath and nausea but denies fever. She had one episode of vomiting yesterday which looked like food. She last ate some toast this morning and she had a normal-appearing bowel movement in the emergency department. Patient was recently diagnosed with a splenic infarction as well as enterococcus bacteremia for which she was undergoing treatment. Her PCP is Gi Mathews - [facility] primary care CBC/BMP: 07/05/17 0656 07/05/17 0656 Significant Findings Laboratory Tests Test 07/05/17 06:56 Red Blood Count 3.64 MIL/MM3 (4.00-5.30) Hemoglobin 11.3 GM/DL (11.6-15.3) Hematocrit 34.3 % (35.0-46.0) Red Cell Distribution Width 17.5 % (11.6-17.2) Neutrophils (%) (Auto) 78.4 % (16.0-70.0) Lymphocytes (%) (Auto) 8.9 % (9.0-44.0) Monocytes (%) (Auto) 9.9 % (0.0-8.0) Neutrophils # (Auto) 8.5 TH/MM3 (1.8-7.7) Monocytes # (Auto) 1.1 TH/MM3 (0-0.9) Blood Urea Nitrogen 58 MG/DL (7-18) Creatinine 9.68 MG/DL (0.50-1.00) Random Glucose 137 MG/DL (74-106) Sodium Level 129 MEQ/L (136-145) Chloride Level 91 MEQ/L (98-107) Estimat Glomerular Filtration Rate 4 ML/MIN (>89) PE at Discharge General: Sitting up in bed, eyes darting around room, tearful today, reporting visual hallucinations, namely seeing shadows and having sensations someone is in the room. 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 Poor dentition. MMM. Neck: Supple CV: RRR, no murmurs, rubs, or gallops, no edema. Lungs: CTAB, no wheezing, rales, or rhonchi. Abdomen: Soft, nontender, normal bowel sounds, no guarding. Drain exit site wound is covered in dressing, no obvious drainage, swelling is minimal. No pain on palpation of this site. Neuro: Alert and oriented, EOMI, PERRLA Psych: Seeing shadows and feeling presence of someone in room, tearful, upset about her uncle recently passing away, feels sad, no suicidal ideation/ intention. Hospital Course 47-year-old female with a past medical history of end-stage renal disease on HD MWF, diabetes, hypertension, PAD, recently discharged from the hospital on 03 June where she was found to have an acute splenic infarction, presented with a one-day history of chest pain and left shoulder pain as well as elevated potassium and creatinine. She was admitted to the hospital for dialysis and ACS rule out and was found to have a splenic abscess identified on CTA performed on 06/19/17. Splenic abscess drain was placed by IR on 06/21 and wound cultures grew Propionibacterium and Enterobacter cloacae. ID was consulted and assisted with antibiotic management and she was initially managed with IV cefepime which was changed to IV Rocephin, and then was transitioned to Levaquin PO and PO Clindamycin; IR removed the splenic abscess drain on 07/01 although she did still have a small fluid collection. After the drain was removed, she was observed for at least 2 days signs of clinical improvement. Due to continued improvement, she discharged home with home health service on PO antibiotics as above to repeat CT abdomen/pelvis in 4 weeks to reevaluate resolution of the abscess. Additionally, during her hospital stay, patient had a period where her mental status was acutely altered. She stated that she had difficulty speaking words even though she knew what to say when asked. An EEG was performed that showed severe slowing as well as triphasic waves which are consistent with a metabolic encephalopathy. Although no ictal epileptiform discharges were identified, she was started on Keppra and significantly improved on this medication but the medication was discontinued by the neurologist due to no seizures found on EEG. She is to follow up with her PCP in 1 week. Pt Condition on Discharge: Stable Discharge Disposition: Disch w/ Home Health Serv Discharge Instructions DIET: Follow Instructions for: Diabetic Diet, Renal Failure Diet Activities you can perform: Weight Bearing as Rashi Follow up Referrals: Appointment for Follow Up @ [facility] Nephrology - 1 Week PCP Follow-up - 1 Week PCP Follow-up New Orders: CT ABDOMEN W/O IV CONTRAST - 4 Weeks New Medications: Clindamycin (Cleocin) 150 Mg Cap 300 MG PO Q6H for 26 Days, #208 CAP 0 Refills Insulin Detemir Inj (Levemir Inj) 1,000 unit/ 10 ML Vial 5 UNITS SQ BID, #1 BOTTLE 0 Refills Do not mix with any other Insulin. Levofloxacin (Levaquin) 250 Mg Tablet 250 MG PO DAILY, #26 TAB 0 Refills Continued Medications: Apixaban (Eliquis) 2.5 Mg Tab 2.5 MG PO BID for Blood Clot Prevention, TAB 0 Refills B-Complex W/ C & Folic Acid (Nephro-Lory) 1 Tab 1 TAB PO DAILY for Nutritional Supplement, #30 TAB 0 Refills Carvedilol (Coreg) 25 Mg Tab 25 MG PO BID, #60 TAB 0 Refills Cholecalciferol (Vitamin D3) 5,000 Unit Cap 5000 UNITS PO DAILY for vit D, #30 CAP Clopidogrel (Plavix) 75 Mg Tab 75 MG PO DAILY for Blood Clot Prevention, #90 TAB 11 Refills Docusate Sodium (Colace) 100 Mg Capsule 100 MG BID Lisinopril (Lisinopril) 20 Mg Tab 20 MG PO BID, #30 TAB 0 Refills Omeprazole (Omeprazole) 40 Mg Cap 40 MG PO DAILY, #30 CAP 5 Refills Sertraline (Sertraline) 100 Mg Tab 100 MG PO DAILY, #30 TAB 0 Refills Discontinued Medications: Amlodipine (Norvasc) 10 Mg Tab 10 MG PO DAILY for Blood Pressure Management, #30 TAB 0 Refills Ciprofloxacin (Cipro) 250 Mg Tab 750 MG PO DAILY for Infection for 28 Days, #28 TAB 0 Refills Gabapentin (Gabapentin) 400 Mg Cap 400 CAP PO TID, #30 CAP 0 Refills Insulin Glargine Inj (Lantus Solostar Pen Inj) 300 Unit/3 Ml Pen 25 UNITS SQ BID for Blood Sugar Management, #1 BOX 11 Refills Nicotine Patch (Nicotine Patch) 21 Mg/24 Hr Patch 21 MG T-DERMAL DAILY for Smoking Cessation, #30 PATCH 2 Refills Trazodone (Trazodone) 50 Mg Tab 50 MG PO HS for Control Depression, #30 TAB 0 Refills Leena Johnston MD R2 Jul 07, 2017 14:59
== END 2017-07-05 18:45 | disposition home health service (06) | DRG 871 ==
LOC: NEPD 09:58 → NEDA 13:30 → N04A 17:13
PROVIDERS: ADMIT Family Medicine; ATTEND Family Medicine
PROC: 5A1D70Z Performance of Urinary Filtration, Intermittent, Less than 6 Hours Per Day (ICD-10-PCS; principal; 2017-06-17)
PROC: 079P30Z Drainage of Spleen with Drainage Device, Percutaneous Approach (ICD-10-PCS; 2017-06-20)
DX: A41.59 Other Gram-negative sepsis (principal); N18.6 End stage renal disease; G93.41 Metabolic encephalopathy; I13.2 Hypertensive heart and chronic kidney disease with heart failure and with stage 5 chronic kidney disease, or end stage renal disease; E11.22 Type 2 diabetes mellitus with diabetic chronic kidney disease; E11.40 Type 2 diabetes mellitus with diabetic neuropathy, unspecified; I38 Endocarditis, valve unspecified; E87.1 Hypo-osmolality and hyponatremia; D73.3 Abscess of spleen; F32.9 Major depressive disorder, single episode, unspecified; K21.9 Gastro-esophageal reflux disease without esophagitis; F17.210 Nicotine dependence, cigarettes, uncomplicated; I50.9 Heart failure, unspecified; E11.319 Type 2 diabetes mellitus with unspecified diabetic retinopathy without macular edema; E87.5 Hyperkalemia; H54.8 Legal blindness, as defined in USA; E11.51 Type 2 diabetes mellitus with diabetic peripheral angiopathy without gangrene; E83.39 Other disorders of phosphorus metabolism; E78.00 Pure hypercholesterolemia, unspecified; F41.9 Anxiety disorder, unspecified; E83.59 Other disorders of calcium metabolism; I25.10 Atherosclerotic heart disease of native coronary artery without angina pectoris; D73.5 Infarction of spleen; R44.1 Visual hallucinations; B96.1 Klebsiella pneumoniae [K. pneumoniae] as the cause of diseases classified elsewhere; B95.2 Enterococcus as the cause of diseases classified elsewhere; Z99.2 Dependence on renal dialysis; Z79.01 Long term (current) use of anticoagulants; Z79.4 Long term (current) use of insulin; Z89.511 Acquired absence of right leg below knee; Z79.02 Long term (current) use of antithrombotics/antiplatelets
CPT/HCPCS: 70551; 71010; 71020; 74020; 74150; 74174; 75989; 76937; 76999; 78582; 80048; 80053; 80202; 82140; 82550; 82552; 82948; 83690; 83735; 83880; 84100; 84132; 84146; 84443; 84484; 84702; 85025; 85027; 85610; 85730; 86850; 86900; 86901; 87040; 87070; 87077; 87102; 87186; 87205; 87206; 90935; 93005; 94150; 95819; 96365; 96366; 96374; 96375; 96376; A9540; A9567; C1729; C1769; J0131; J0610; J0692; J0696; J1815; J1953; J2060; J2250; J2270; J2405; J2997; J3010; J3370; J7030; J7050; J7512; P9047; Q0163; Q4081; Q9967

== ENCOUNTER 2017-10-08 16:05 | Inpatient (IN) | payer MEDICAID ==
[2017-10-08] VITALS (21 sets, daily range): BP systolic 105–175; BP diastolic 55–84; PULSE 52–70; RESP 14–18; TEMP 97.7–98.9; O2SAT 94–100
[~2017-10-08] VITALS: Ht 162.6 cm; Wt 118.0 kg
[~2017-10-08 16:05] MED LIST changes: +APIX2.5T PO; -CARV6.252 PO; -CIPR250T52 PO; +CLIN150 PO; +CORE25TA PO; -GABA600T PO; -HYDR-755 PO; -LANTINJ SQ; +LEVA250T14 PO; +LEVEMIR SQ; +LISI-515 PO; -NICO21DI2 T-DERMAL; +NICO7DIS2 T-DERMAL; -SEVEL800 PO; -TRAZ50TA12 PO
[2017-10-08 16:32] LABS: AUTOMATED NEUTROPHIL # 4.1 TH/MM3 (1.8-7.7); BASOPHIL % 0.5 % (0.0-2.0); EOSINOPHIL # 0.1 TH/MM3 (0-0.4); EOSINOPHIL % 1.3 % (0.0-4.0); HEMATOCRIT 36.4 % (35.0-46.0); HEMOGLOBIN 11.9 GM/DL (11.6-15.3); LYMPH % 17.9 % (9.0-44.0); MEAN CORPUSCULAR HEMOGLOBIN 30.8 PG (27.0-34.0); MEAN CORPUSCULAR HGB CONC 32.7 % (32.0-36.0); MEAN PLATELET VOLUME 8.6 FL (7.0-11.0); MONO % 5.7 % (0.0-8.0); MONOCYTE # 0.3 TH/MM3 (0-0.9); NEUT % 74.6 % (16.0-70.0); PLATELET COUNT 144 TH/MM3 (150-450); RED BLOOD COUNT 3.87 MIL/MM3 (4.00-5.30); RED CELL DISTRIBUTION WIDTH 16.7 % (11.6-17.2); WHITE BLOOD COUNT 5.4 TH/MM3 (4.0-11.0)
[2017-10-08] MEDS ORDERED: ETOMIDATE 40 MG/20 ML VIAL ONE (16:35)
[2017-10-08] MEDS ORDERED: SUCCINYLCHOLINE CHLORIDE 200 MG/10 ML VIAL ONE (16:35)
[2017-10-08] MEDS ORDERED: PROPOFOL 1000 MG/100 ML INJ 100 ML ONE (16:37)
[2017-10-08 17:08] LABS: ALBUMIN 3.5 GM/DL (3.4-5.0); ALKALINE PHOSPHATASE 122 U/L (45-117); ALT (GPT) 10 U/L (10-53); AST (GOT) 6 U/L (15-37); BICARBONATE 14.1 MEQ/L (21.0-32.0); BLOOD UREA NITROGEN 114 MG/DL (7-18); CALCIUM 7.8 MG/DL (8.5-10.1); CHLORIDE 99 MEQ/L (98-107); GLOMERULAR FILTRATION RATE 2 ML/MIN (>89); GLUCOSE,RANDOM 113 MG/DL (74-106); SODIUM (NA) 129 MEQ/L (136-145); TOTAL BILIRUBIN ADULT 0.5 MG/DL (0.2-1.0); TOTAL PROTEIN 7.9 GM/DL (6.4-8.2); TROPONIN I LESS THAN 0.02 NG/ML (0.02-0.05)
[2017-10-08 17:10] LABS: CREATININE 17.34 MG/DL (0.50-1.00)
[2017-10-08] MEDS ORDERED: SODIUM BICARBONATE 8.4% INJ 50 MEQ/50 ML SYR IV PUSH ONE (17:15)
[2017-10-08] MEDS ORDERED: CALCIUM CHLORIDE 10% SOLN 1 GRAM/10 ML SYR IV PUSH ONE (17:15)
[2017-10-08] MEDS ORDERED: INSULIN HUMAN REGULAR 1,000 UNITS/10 ML VIAL IV PUSH ONE (17:15)
[2017-10-08] MEDS ORDERED: SODIUM POLYSTYRENE SULFONATE SUSP 15 GM/60 ML CUP NG ONE (17:15)
[2017-10-08] MEDS ORDERED: DEXTROSE 50% IN WATER 50 ML VIAL(D50) IV PUSH ONE (17:15)
[2017-10-08] MEDS ORDERED: SODIUM CHLOR 0.9% 1000 ML INJ 1,000 ML IV SCH (17:17)
[2017-10-08] MEDS ORDERED: SODIUM BICARBONATE 8.4% INJ 50 MEQ/50 ML SYR ONE (17:21)
[2017-10-08] MEDS ORDERED: GLUCAGON 1 MG/ML VIAL OTHER PRN (17:30)
[2017-10-08] MEDS ORDERED: RESP: ALBUTEROL 2.5 MG/3 ML NEB (PRN) INH (17:30)
[2017-10-08] MEDS ORDERED: MAGNESIUM HYDROXIDE SUSP 30 ML CUP PO PRN (17:30)
[2017-10-08] MEDS ORDERED: VANCOMYCIN INJ 1,000 MG in SODIUM CHLOR 0.9% 250 ML INJ 250 ML IV ONE (17:30)
[2017-10-08] MEDS ORDERED: LACTULOSE SYRUP 20 GM/30 ML CUP PO ONE (17:30)
[2017-10-08] MEDS ORDERED: BISACODYL 10 MG SUPP RECTAL PRN (17:30)
[2017-10-08] MEDS ORDERED: LACTULOSE SYRUP 20 GM/30 ML CUP PO PRN (17:30)
[2017-10-08] MEDS ORDERED: MISCELLANEOUS NURSING INFORMATION XX SCH (17:30)
[2017-10-08] MEDS ORDERED: fentaNYL DRIP 250 ML IV PRN (17:30)
[2017-10-08] MEDS ORDERED: SENNOSIDES 8.6 MG TAB PO PRN (17:30)
--- NOTE | 2017-10-08 17:42 | PD ---
HPI Chief Complaint: Altered Mental Status Time Seen by Provider: 16:13 Travel History International Travel<30 days: No Contact w/Intl Traveler<30days: No Traveled to known affect area: No History of Present Illness HPI 47-year-old female with history of renal failure, diabetes mellitus, peripheral vascular disease, presents via EMS with altered mental status. According to the family members the patient has not had her last scheduled dialysis sessions. They reported that over the last 24 hours she was attended and not answering questions or acting her normal self. When paramedics arrived, they found her obtunded and arousable to stimuli however she would fall right back to sleep. The patient presents the same way here. She is unable to give any history. She is unable to state whether she is having any discomfort or not. As soon as she opens her eyes to stimuli, she falls right back asleep. PFSH Past Medical History Hx Anticoagulant Therapy: Yes (Eliquis) Arthritis: No Asthma: No Autoimmune Disease: No Blood Disorders: No Anxiety: No Depression: Yes Heart Rhythm Problems: No Cancer: No Cardiac Catheterization: Yes Cardiovascular Problems: Yes High Cholesterol: Yes Chemotherapy: No Chest Pain: No Congestive Heart Failure: No COPD: No Cerebrovascular Accident: No Diabetes: Yes Patient Takes Glucophage: No Dialysis: Yes (--) Diminished Hearing: No Endocrine: No Gastrointestinal Disorders: Yes (REFLUX) GERD: No Glaucoma: No Genitourinary: Yes Headaches: Yes Hepatitis: No Hiatal Hernia: No Heparin Induced Thrombocytopen: No Hypertension: Yes Immune Disorder: No Implanted Vascular Access Dvce: No Kidney Stones: No Medical other: Yes (ANEMIA) Musculoskeletal: Yes Neurologic: Yes Psychiatric: Yes Reproductive: Yes (previous miscarriage ) Respiratory: Yes (PNEUMONIA) Immunizations Current: Yes Migraines: Yes Myocardial Infarction: No Radiation Therapy: No 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) Seizures: No Sickle Cell Disease: No Sleep Apnea: No Thyroid Disease: No Ulcer: No ?: Not : 2 Para: 2 Ovarian Cysts: Yes (RIGHT OOPHRECTOMY) Past Surgical History Abdominal Surgery: Yes (Cholecystectomy) AICD: No Arteriovenous Shunt: No Cardiac Surgery: No Cholecystectomy: Yes Ear Surgery: No Endocrine Surgery: No Eye Surgery: Yes Genitourinary Surgery: No Gynecologic Surgery: Yes (RIGHT OOPHERECTOMY) Insulin Pump: No Joint Replacement: No Neurologic Surgery: No Oral Surgery: Yes (TEETH EXTRACTED) Pacemaker: No Thoracic Surgery: No Tonsillectomy: Yes Other Surgery: Yes Social History Alcohol Use: No Tobacco Use: Yes (2 CIGS/DAY) Substance Use: Yes (marijuana ) Allergies-Medications (Allergen,Severity, Reaction): Coded Allergies: codeine (Verified Allergy, Severe, HYPERACTIVITY &ITCH, 07/11/17) iodine (Verified Allergy, Severe, TOPICAL/ITCH, 07/11/17) potassium iodide (Verified Allergy, Severe, TOPICAL/ITCH, 07/11/17) povidone-iodine (Verified Allergy, Severe, TOPICAL/ITCH, 07/11/17) sodium iodide (Verified Allergy, Severe, TOPICAL/ITCH, 07/11/17) sodium iodide (Verified Allergy, Severe, TOPICAL/ITCH, 07/11/17) iohexol (Verified Allergy, Intermediate, HIVES, 07/11/17) Pork/Porcine Containing Products (Verified Allergy, Unknown, 07/11/17) penicillin G (Verified Allergy, Unknown, 07/11/17) Reported Meds & Prescriptions Reported Meds & Active Scripts Active Nicotine Patch (Nicotine) 7 Mg/24 Hr Patch 7 Mg T-DERMAL DAILY Cleocin (Clindamycin HCl) 150 Mg Cap 300 Mg PO Q6H 26 Days Levaquin (Levofloxacin) 250 Mg Tablet 250 Mg PO DAILY Levemir Inj (Insulin Detemir) 1,000 unit/ 10 ML Vial 5 Units SQ BID Do not mix with any other Insulin. Plavix (Clopidogrel Bisulfate) 75 Mg Tab 75 Mg PO DAILY Vitamin D3 (Cholecalciferol) 5,000 Unit Cap 5,000 Units PO DAILY Omeprazole 40 Mg Cap 40 Mg PO DAILY Reported Lisinopril 20 Mg Tab 20 Mg PO BID Eliquis (Apixaban) 2.5 Mg Tab 2.5 Mg PO BID Coreg (Carvedilol) 25 Mg Tab 25 Mg PO BID Sertraline (Sertraline HCl) 100 Mg Tab 100 Mg PO DAILY Nephro-Lory (B-Complex W/ C & Folic Acid) 1 Tab 1 Tab PO DAILY Colace (Docusate Sodium) 100 Mg Capsule 100 Mg BID Review of Systems ROS Limitations: Clinical Condition, Intubated, Altered Mental Status Except as stated in HPI: all other systems reviewed are Neg (Patient is unable to give any history as she is altered mental status and critically ill.) Physical Exam Narrative GENERAL: Ill-appearing female who appears obtunded and minimally responsive. SKIN: Focused skin assessment warm/dry. HEAD: Atraumatic. Normocephalic. EYES: No scleral icterus. No injection or drainage. ENT: No nasal bleeding or discharge. Mucous membranes pink and moist. NECK: Trachea midline. No JVD. CARDIOVASCULAR: Bradycardic with no obvious murmur. RESPIRATORY: Decreased respiratory effort with minimal air exchange. GASTROINTESTINAL: Abdomen soft, non-tender, nondistended. Obese. No obvious palpable masses. MUSCULOSKELETAL: Previous right lower extremity amputation. Left lower extremity cool with chronic venous stasis changes. There is a dopplerable dorsalis pedis and posterior tibial pulse. NEUROLOGICAL: Obtunded and arousable to stimuli however patient falls immediately asleep. Does not follow commands. Is observed moving her upper extremities and her left lower extremity. Data Data Last Documented VS Vital Signs Date Time Temp Pulse Resp B/P (MAP) Pulse Ox O2 Delivery O2 Flow Rate FiO2 10/08/17 17:01 50 10/08/17 17:00 100 Ventilator 10/08/17 16:20 54 16 3.00 Orders Orders Electrocardiogram (10/08/17 16:13) Complete Blood Count With Diff (10/08/17 16:13) Comprehensive Metabolic Panel (10/08/17 16:13) Ckmb (Isoenzyme) Profile (10/08/17 16:13) Troponin I (10/08/17 16:13) Lipase (10/08/17 16:13) Ammonia (10/08/17 16:13) Arterial Blood Gas (Abg) (10/08/17 16:16) Blood Culture (10/08/17 16:16) Cath For Specimen (10/08/17 16:16) Magnesium (Mg) (10/08/17 16:16) Phosphorus (Po4) (10/08/17 16:16) Chest, Single Ap (10/08/17 16:16) Ct Brain W/O Iv Contrast(Rout) (10/08/17 16:16) Iv Access Insert/Monitor (10/08/17 16:16) Ecg Monitoring (10/08/17 16:16) Oximetry (10/08/17 16:16) Urinary Catheter Insert/Apply (10/08/17 16:16) Etomidate Inj (Amidate Inj) (10/08/17 16:35) Succinylcholine Inj (Quelicin Inj) (10/08/17 16:35) Propofol 1000 Mg/100 Ml Inj (Diprivan 10 (10/08/17 16:37) Sodium Bicarbonate 8.4% Inj (Sodium Bica (10/08/17 17:15) Insulin Human Regular Inj (Novolin R Inj (10/08/17 17:15) Dextrose 50% In Yeny (Vial) Inj (D50w (Vi (10/08/17 17:15) Calcium Chloride Inj (Calcium Chloride I (10/08/17 17:15) Sodium Polysty Sulfate Liq (Kayexalate L (10/08/17 17:15) Sodium Bicarbonate 8.4% Inj (Sodium Bica (10/08/17 17:21) Admit Order (Ed Use Only) (10/08/17 17:22) Admit To Inpatient (10/08/17 ) Code Status (10/08/17 17:17) Vital Signs (Adult) PABLO.Q1H (10/08/17 17:17) Activity Bed Rest (10/08/17 17:17) Elevate Head Of Bed (10/08/17 17:17) Neuro Checks . ORDERED (10/08/17 17:17) Intake + Output Q1H (10/08/17 17:17) Bedside Glucose PABLO.BGM (10/08/17 17:17) ^ Orogastric Tube (10/08/17 17:17) Diet Npo (10/08/17 Dinner) Sodium Chlor 0.9% 1000 Ml Inj (Ns 1000 M (10/08/17 17:17) Sodium Chloride 0.9% Flush (Ns Flush) (10/08/17 17:30) Sodium Chloride 0.9% Flush (Ns Flush) (10/08/17 21:00) Lansoprazole Odt (Prevacid Odt) (10/09/17 09:00) Artificial Tears Opth Soln (Tears Natura (10/08/17 18:00) Ondansetron Inj (Zofran Inj) (10/08/17 17:30) Albuterol-Ipratropium Neb (Duoneb Neb) (10/08/17 22:00) Albuterol Neb (Albuterol Neb) (10/08/17 17:30) Complete Blood Count With Diff (10/09/17 04:00) Comprehensive Metabolic Panel (10/09/17 04:00) Creatine Kinase (Cpk) (10/09/17 06:00) Troponin I (10/08/17 17:17) Troponin I (10/08/17 23:17) Act Partial Throm Time (Ptt) (10/09/17 04:00) Prothrombin Time / Inr (Pt) (10/09/17 04:00) Magnesium (Mg) (10/09/17 04:00) Phosphorus (Po4) (10/09/17 04:00) Lactic Acid (10/09/17 04:00) Sputum Culture And Gram Stain (10/09/17 06:00) Electrocardiogram (10/08/17 ) Echo 2d Comp With Doppler (10/09/17 06:00) Pt Request For Service (10/08/17 17:17) Consult Nephrology (10/08/17 ) Pesticide Applicator / Telemetry PABLO.Q8H (10/08/17 17:17) Scd Bilateral/Knee High PABLO.BID (10/08/17 17:17) ^ Initiate Protocol (10/08/17 17:17) Instruction (10/08/17 17:17) [facility] Information (10/08/17 17:30) Mrsa Pcr Surveillance (10/08/17 17:17) Docusate Sodium-Senna (Areli-Colace) (10/08/17 21:00) Magnesium Hydroxide Liq (Milk Of Magnesi (10/08/17 17:30) Sennosides (Senokot) (10/08/17 17:30) Bisacodyl Supp (Dulcolax Supp) (10/08/17 17:30) Lactulose Liq (Lactulose Liq) (10/08/17 17:30) Elevate Head Of Bed (10/08/17 17:17) Chlorhexidine 0.12% Liq (Peridex 0.12% L (10/08/17 20:00) Resp Ventilation- Pressure (10/08/17 ) Restraints Non-Violent PABLO.Q3H (10/08/17 17:17) Ventilator Weaning Readiness PABLO.DAILY@0800 (10/08/17 17:17) Resp Spont Breath Trial (Sbt) (10/08/17 ) Arterial Blood Gas (Abg) (10/08/17 18:30) Propofol 1000 Mg/100 Ml Inj (Diprivan 10 (10/08/17 17:30) Fentanyl Drip (Fentanyl Drip) (10/08/17 17:30) Inpatient Certification (10/08/17 ) Bedside Glucose PABLO.Q4H (10/08/17 17:27) Blood Glucose Goal (Criteria) (10/08/17 17:27) Hypoglycemia 70 Mg/Dl Or < (10/08/17 17:27) Notify Dr: Other (10/08/17 17:27) Dextrose 50% In Yeny (Vial) Inj (D50w (Vi (10/08/17 17:30) Glucagon Inj (Glucagon Inj) (10/08/17 17:30) Insulin Human Reg Supp Scale (Novolin R (10/08/17 20:00) Lactulose Liq (Lactulose Liq) (10/08/17 17:30) Lactulose Liq (Lactulose Liq) (10/09/17 09:00) Thyroid Stimulating Hormone (10/09/17 06:00) Ammonia (10/09/17 06:00) Place Ng Tube To Low Intermit (10/08/17 17:29) Apixaban (Eliquis) (10/08/17 21:00) Sertraline (Zoloft) (10/09/17 09:00) Aztreonam Inj (Azactam Inj) (10/08/17 17:30) Metronidazole 250 Mg Inj (Flagyl 250 Mg (10/08/17 17:30) Vancomycin Inj (Vancomycin Inj) (10/08/17 17:30) Influenzae A/B Antigen (10/08/17 17:30) Labs Laboratory Tests Test 10/08/17 16:10 10/08/17 16:15 10/08/17 16:20 Blood Gas Puncture Site LT RADIAL Blood Gas Patient Temperature 98.6 Blood Gas HCO3 12 mmol/L Blood Gas Base Excess -16.0 mmol/L Blood Gas Oxygen Saturation 93 % Arterial Blood pH 7.07 Arterial Blood Partial Pressure CO2 44 mmHg Arterial Blood Partial Pressure O2 116 mmHG Arterial Blood Oxygen Content 15.1 Vol % Arterial Blood Carboxyhemoglobin 2.5 % Arterial Blood Methemoglobin 0.4 % Blood Gas Hemoglobin 11.3 G/DL Oxygen Delivery Device NASAL CANNULA Blood Gas Liter Flow 6 L/M White Blood Count 5.4 TH/MM3 Red Blood Count 3.87 MIL/MM3 Hemoglobin 11.9 GM/DL Hematocrit 36.4 % Mean Corpuscular Volume 94.0 FL Mean Corpuscular Hemoglobin 30.8 PG Mean Corpuscular Hemoglobin Concent 32.7 % Red Cell Distribution Width 16.7 % Platelet Count 144 TH/MM3 Mean Platelet Volume 8.6 FL Neutrophils (%) (Auto) 74.6 % Lymphocytes (%) (Auto) 17.9 % Monocytes (%) (Auto) 5.7 % Eosinophils (%) (Auto) 1.3 % Basophils (%) (Auto) 0.5 % Neutrophils # (Auto) 4.1 TH/MM3 Lymphocytes # (Auto) 1.0 TH/MM3 Monocytes # (Auto) 0.3 TH/MM3 Eosinophils # (Auto) 0.1 TH/MM3 Basophils # (Auto) 0.0 TH/MM3 CBC Comment DIFF FINAL Differential Comment Blood Urea Nitrogen 114 MG/DL Creatinine 17.34 MG/DL Random Glucose 113 MG/DL Total Protein 7.9 GM/DL Albumin 3.5 GM/DL Calcium Level 7.8 MG/DL Alkaline Phosphatase 122 U/L Aspartate Amino Transf (AST/SGOT) 6 U/L Alanine Aminotransferase (ALT/SGPT) 10 U/L Total Bilirubin 0.5 MG/DL Sodium Level 129 MEQ/L Potassium Level 8.0 MEQ/L Chloride Level 99 MEQ/L Carbon Dioxide Level 14.1 MEQ/L Anion Gap 16 MEQ/L Estimat Glomerular Filtration Rate 2 ML/MIN Total Creatine Kinase 77 U/L Troponin I LESS THAN 0.02 NG/ML Lipase 240 U/L Ammonia 44 MCMOL/L MDM Medical Decision Making Medical Screen Exam Complete: Yes Emergency Medical Condition: Yes Differential Diagnosis Hyperkalemia, renal failure, anemia, acidosis, hypercapnia Narrative Course 47-year-old female presents with altered mental status. The patient has missed her last 5 dialysis sessions. The patient's potassium was 8.0. Sodium is 129. Creatinine is 17. The patient has been given IV dextrose, 10 units of insulin , 1 g of calcium chloride, 1 amp of sodium bicarbonate. She is also had 15 mg of Kayexalate down her NG tube. I spoke with Dr. Gilbert, patient's support services rep , and he will arrange for emergent dialysis. I have also spoken with Dr. Iqbal, medical valuer who will admit the patient to the intensive care service. Critical Care Narrative Aggregate critical care time was 60 minutes. Time to perform other separately billable procedures was not included in the critical care time. My time did not include minutes spent treating any other patients simultaneously or on activities that did not directly contribute to the patient's treatment. The services I provided to this patient were to treat and/or prevent clinically significant deterioration that could result in: I provided critical care services requiring my management, as noted below: Chart data review, documentation time, medication orders and management, vital sign assessments/reviewing monitor data, ordering and reviewing lab tests, ordering and interpreting/reviewing x-rays and diagnostic studies, care of the patient and discussion of the patient with the admitting physicians. Procedures Procedure Narrative Intubated emergently.: INTUBATION: The patient was intubated with Jose Pickens PA-C. The patient was put in optimal position for the procedure. Rapid sequence intubation was initiated by me using 20 milligrams of etomidate IV and 10 milligrams of vecuronium IV. The patient was intubated with a 8.0 cuffed endotracheal tube. Tube placement was confirmed by visualization of the tube and balloon passing through the cords, capnometry and subsequent chest x-ray. Breath sounds were equal and well aerated bilaterally postintubation. No breath sounds over stomach. Patient tolerated procedure well. Diagnosis Primary Impression: Respiratory failure Additional Impressions: Hyperkalemia Renal failure Acidosis Obesity Admitting Information Admitting Physician Requests: Admit Lorenzo Dallas MD Oct 08, 2017 17:42
--- NOTE | 2017-10-08 17:58 | RADRPT ---
EXAM DATE/TIME: 10/08/2017 17:46 [facility] COMPARISON: CHEST SINGLE AP, June 23, 2017, 13:55. INDICATIONS : Post intubation. MEDICAL HISTORY : None. SURGICAL HISTORY : None. ENCOUNTER: Initial ACUITY: 1 day PAIN SCORE: 10/10 LOCATION: Bilateral chest FINDINGS: Endotracheal tube is in good position above the domenico. A nasogastric tube is in place with its tip i n the stomach. The cardiac silhouette is enlarged in transverse diameter. The lungs are hypoinflated. There is prominence of the central pulmonary vasculature with indistinct vascular margins compatible with vascular congestion but no evidence of overt failure. CONCLUSION: 1. Satisfactory position of endotracheal tube as above. 2. Hypoinflation with pulmonary vascular congestion Rhys Barker MD on October 08, 2017 at 17:56 Board Certified Radiologist. This report was verified electronically.
--- NOTE | 2017-10-08 18:04 | HHI.HP ---
[facility] Service Critical Care Medicine Primary Care Physician Unknown Admission Diagnosis respiratory depression, hyperkalemia, renal failure, acidosis Diagnosis: (1) Acute respiratory failure Diagnosis: Principal (2) Altered mental status Diagnosis: Principal (3) ESRD (end stage renal disease) on dialysis Diagnosis: Secondary (4) Hyperkalemia Diagnosis: Principal (5) PAD (peripheral artery disease) Diagnosis: Secondary (6) Tobacco abuse Diagnosis: Secondary (7) Hypertension Diagnosis: Secondary (8) Diabetes Diagnosis: Principal (9) Chronic Medical Problems Diagnosis: Principal (10) Peripheral vascular disease Diagnosis: Principal (11) Thrombocytopenia (12) Diabetic retinopathy Diagnosis: Secondary (13) Hyponatremia Diagnosis: Principal (14) Depression Diagnosis: Secondary Chief Complaint: Patient found obtunded at home. Missed 5 hemodialysis sessions per ED physician Travel History International Travel<30 Days: No Contact w/Intl Traveler <30 Da: No Traveled to Known Affected Are: No History of Present Illness 47-year-old female. Date of admission 10/08/2017. Past medical history includes end-stage renal disease on hemodialysis Saturday/Saturday/Saturday,, diabetes mellitus with retinopathy, peripheral vascular disease, peripheral arterial disease, presents via EMS with altered mental status. According to the family members the patient has not had her last 5 scheduled dialysis sessions. They reported that over the last 24 hours she was somnolent and not answering questions or acting her normal self. When paramedics arrived, they found her obtunded and arousable to stimuli however she would fall right back to sleep. The patient presents the same way here. She is unable to give any history. She is unable to state whether she is having any discomfort or not. As soon as she opens her eyes to stimuli, she falls right back asleep. Baseline laboratories revealed a sodium 129 potassium of 8.0 and a creatinine of greater than 17. No peaked T waves are appreciated on EKG. CBC showed thrombocytopenia of 144. Ammonia levels elevated at 44. Patient was intubated using 20 mg etomidate and 10 mg vecuronium. Nephrology was consulted stat for hemodialysis. We are asked to admit the patient CT brain currently pending at time of dictation Review of Systems ROS Limitations: Intubated Past Family Social History Allergies: Coded Allergies: codeine (Verified Allergy, Severe, HYPERACTIVITY &ITCH, 07/11/17) iodine (Verified Allergy, Severe, TOPICAL/ITCH, 07/11/17) potassium iodide (Verified Allergy, Severe, TOPICAL/ITCH, 07/11/17) povidone-iodine (Verified Allergy, Severe, TOPICAL/ITCH, 07/11/17) sodium iodide (Verified Allergy, Severe, TOPICAL/ITCH, 07/11/17) sodium iodide (Verified Allergy, Severe, TOPICAL/ITCH, 07/11/17) iohexol (Verified Allergy, Intermediate, HIVES, 07/11/17) Pork/Porcine Containing Products (Verified Allergy, Unknown, 07/11/17) penicillin G (Verified Allergy, Unknown, 07/11/17) Past Medical History Diabetes mellitus Diabetic retinopathy with clinical blindness End-stage renal disease on hemodialysis Saturday/Saturday/Saturday secondary to hypertension, diabetes and AIN secondary to vancomycin Peripheral vascular disease Peripheral arterial disease Essential hypertension Dyslipidemia Hepatitis C History of calciphylaxis Chronic apixaban use History of splenic abscess History of calciphylaxis Coronary artery disease Depression Constipation Past Surgical History Right below the knee amputation Cholecystectomy IR placement of perisplenic drain T&A Right upper extremity AV fistula Right nephrectomy Dental extraction Right oophorectomy Left lower extremity angioplasty Reported Medications Levofloxacin 250 mg p.o. daily Clindamycin 300 mg p.o. every 6 hours Nicotine patch 7 mg daily Apixaban 2.5 mg p.o. twice daily Clopidogrel bisulfate 75 mg p.o. daily Carvedilol 25 mg p.o. twice daily Lisinopril 20 mg p.o. twice daily Sertraline 100 mg p.o. daily Docusate sodium 100 mg p.o. daily Omeprazole 40 mg p.o. daily Cholecalciferol 5000 units p.o. daily Insulin detemir 5 units subcu twice daily Vitamin B type 1 tablet daily Active Ordered Medications Reviewed in EMR Family History Positive for leukemia, hypertension and diabetes Social History 2-3 puffs of cigarette daily. No alcohol use documented. Positive THC use. Positive remote IV drug use. Physical Exam Vital Signs Vital Signs Date Time Temp Pulse Resp B/P (MAP) Pulse Ox O2 Delivery O2 Flow Rate FiO2 10/08/17 17:34 60 16 121/64 (83) 100 Ventilator 50 10/08/17 17:01 50 10/08/17 17:00 100 Ventilator 50 10/08/17 16:55 100 50 10/08/17 16:20 54 16 142/60 (87) 100 Nasal Cannula 3.00 10/08/17 16:13 70 14 142/60 (87) 94 Physical Exam GENERAL: 47-year-old female resting in bed orotracheally intubated SKIN: Warm and dry. Brazen rash on forehead HEAD: Atraumatic. Normocephalic. EYES: Pupils equal and round about 2 mm bilaterally and reactive. No scleral icterus. No injection or drainage. ENT: No nasal bleeding or discharge. Mucous membranes pink and moist. NECK: Trachea midline. No JVD. CARDIOVASCULAR: Regular rate and rhythm. S1, S2. No S4. Without murmur RESPIRATORY: Misfit essentially clear to auscultation. Breath sounds equal bilaterally. GASTROINTESTINAL: Abdomen soft, non-tender, obese. Hypoactive bowel sounds are appreciated MUSCULOSKELETAL: Right below the knee potation. Chronic venous stasis left lower extremity. Multiple tattoos on left lower extremity. NEUROLOGICAL: Sedated on propofol drip. Withdraws to pain left upper, right upper and left lower extremity. Positive gag and cough. + corneal reflex. Laboratory Laboratory Tests Test 10/08/17 16:10 10/08/17 16:15 10/08/17 16:20 Blood Gas Puncture Site LT RADIAL Blood Gas Patient Temperature 98.6 Blood Gas HCO3 12 Blood Gas Base Excess -16.0 Blood Gas Oxygen Saturation 93 Arterial Blood pH 7.07 Arterial Blood Partial Pressure CO2 44 Arterial Blood Partial Pressure O2 116 Arterial Blood Oxygen Content 15.1 Arterial Blood Carboxyhemoglobin 2.5 Arterial Blood Methemoglobin 0.4 Blood Gas Hemoglobin 11.3 Oxygen Delivery Device NASAL CANNULA Blood Gas Liter Flow 6 White Blood Count 5.4 Red Blood Count 3.87 Hemoglobin 11.9 Hematocrit 36.4 Mean Corpuscular Volume 94.0 Mean Corpuscular Hemoglobin 30.8 Mean Corpuscular Hemoglobin Concent 32.7 Red Cell Distribution Width 16.7 Platelet Count 144 Mean Platelet Volume 8.6 Neutrophils (%) (Auto) 74.6 Lymphocytes (%) (Auto) 17.9 Monocytes (%) (Auto) 5.7 Eosinophils (%) (Auto) 1.3 Basophils (%) (Auto) 0.5 Neutrophils # (Auto) 4.1 Lymphocytes # (Auto) 1.0 Monocytes # (Auto) 0.3 Eosinophils # (Auto) 0.1 Basophils # (Auto) 0.0 CBC Comment DIFF FINAL Differential Comment Blood Urea Nitrogen 114 Creatinine 17.34 Random Glucose 113 Total Protein 7.9 Albumin 3.5 Calcium Level 7.8 Alkaline Phosphatase 122 Aspartate Amino Transf (AST/SGOT) 6 Alanine Aminotransferase (ALT/SGPT) 10 Total Bilirubin 0.5 Sodium Level 129 Potassium Level 8.0 Chloride Level 99 Carbon Dioxide Level 14.1 Anion Gap 16 Estimat Glomerular Filtration Rate 2 Total Creatine Kinase 77 Troponin I LESS THAN 0.02 Lipase 240 Ammonia 44 Date/Time Source Procedure Growth Status 10/08/17 16:30 Blood Peripheral Aerobic Blood Culture Pending Received 10/08/17 16:30 Blood Peripheral Anaerobic Blood Culture Pending Received Result Diagram: 10/08/17 1615 10/08/17 1615 Imaging Chest x-ray -my reading hypoinflated lungs. Mild vascular prominence possibly edema. ET tube 3 cm above domenico. OG tube in place in the stomach Septic Shock Reassessment Septic shock perfusion: reassessment completed Caprini VTE Risk Assessment Caprini VTE Risk Assessment: Mod/High Risk (score >= 2) Caprini Risk Assessment Model Point Value = 1 Point Value = 2 Point Value = 3 Point Value = 5 Age 41-60 Minor surgery BMI > 25 kg/m2 Swollen legs Varicose veins or History of unexplained or recurrent spontaneous Oral contraceptives or hormone replacement Sepsis (< 1 month) Serious lung disease, including pneumonia (< 1 month) Abnormal pulmonary function Acute myocardial infarction Congestive heart failure (< 1 month) History of inflammatory bowel disease Medical patient at bed rest Age 61-74 Arthroscopic surgery Major open surgery (> 45 min) Laparoscopic surgery (> 45 min) Malignancy Confined to bed (> 72 hours) Immobilizing plaster cast Central venous access Age >= 75 History of VTE Family history of VTE Factor V Leiden Prothrombin [id number] Lupus anticoagulant Anticardiolipin antibodies Elevated serum homocysteine Heparin-induced thrombocytopenia Other congenital or acquired thrombophilia Stroke (< 1 month) Elective arthroplasty Hip, pelvis, or leg fracture Acute spinal cord injury (< 1 month) Prophylaxis Regimen Total Risk Factor Score Risk Level Prophylaxis Regimen 0-1 Low Early ambulation 2 Moderate Order ONE of the following: *Sequential Compression Device (SCD) *Heparin 5000 units SQ BID 3-4 Higher Order ONE of the following medications: *Heparin 5000 units SQ TID *Enoxaparin/Lovenox 40 mg SQ daily (WT < 150 kg, CrCl > 30 mL/min) *Enoxaparin/Lovenox 30 mg SQ daily (WT < 150 kg, CrCl > 10-29 mL/min) *Enoxaparin/Lovenox 30 mg SQ BID (WT < 150 kg, CrCl > 30 mL/min) AND/OR *Sequential Compression Device (SCD) 5 or more Highest Order ONE of the following medications: *Heparin 5000 units SQ TID (Preferred with Epidurals) *Enoxaparin/Lovenox 40 mg SQ daily (WT < 150 kg, CrCl > 30 mL/min) *Enoxaparin/Lovenox 30 mg SQ daily (WT < 150 kg, CrCl > 10-29 mL/min) *Enoxaparin/Lovenox 30 mg SQ BID (WT < 150 kg, CrCl > 30 mL/min) AND *Sequential Compression Device (SCD) Assessment and Plan Assessment and Plan Neuro/Psych: Depression Diabetic retinopathy/blindness History of THC use Remote IV drug use Currently on propofol/fentanyl drips for sedation/analgesia while intubated Goal of RASS -2 Daily sedation vacation Sertraline 100 mg p.o. daily to be resumed when clinically indicated CT brain when clinically stabilized/postdialysis CV: Essential hypertension PVD PAD Dyslipidemia Coronary artery disease Currently on normal saline at 84 cc an hour Restart carvedilol 25 mg twice daily when clinically indicated Currently holding lisinopril 20 mg twice daily in light of hyperkalemia Initial troponin 0.02 Restart clopidogrel bisulfate 75 mg p.o. daily EKG on admission did not reveal to 2 weeks. Recheck postdialysis Resp: Acute respiratory failure secondary to altered mental status Tobaccoism [facility] 18500/1.08/18/59 Ventilator bundle Albuterol/ipratropium aerosols every 6 hours with albuterol aerosols every 2 hours. Dyspnea Spontaneous breathing trials when clinically indicated Follow postintubation chest x-ray/ABG Holding nicotine patch 7 mg daily. GI: Constipation History of splenic abscess/perisplenic Hyperammonia History of hepatitis C On docusate sodium 100 mg by mouth twice daily at home. Currently on docusate and senna 1 tablet twice daily Lansoprazole 30 mg by tube daily for GI prophylaxis OGT to LIWS Lactulose 30 cc daily. Recheck ammonia level in a.m. 10/09 : Anderson catheter has been placed for accurate I's and O's in a critically ill patient Endo: Diabetes mellitus Currently holding insulin detemir 5 units twice daily Sliding scale insulin with Novulin R with Accu-Cheks every 4 hours to maintain glycemia/moderate regimen Check TSH in a.m. Renal: End-stage renal disease on hemodialysis Saturday/Saturday/Saturday. Secondary to diabetes, hypertension, AIN secondary to vancomycin? History of calciphylaxis Emergent hemodialysis with Dr. Gilbert Heme: Chronic apixaban use Thrombocytopenia Resume at 2.5 mg twice daily. Noted pork allergy Follow CBC daily. Monitor trends ID: History of laura-splenic abscess Document has been on levofloxacin 250 mg daily and clindamycin 300 mg every 6 hours. Reaffirm with healthcare proxy Aztreonam, metronidazole 1 Check blood cultures 2, sputum, influenza now MSK: Right below the knee amputation PT evaluate and treat Continue cholecalciferol 5000 units p.o. daily FEN: Hyperkalemia/acute Hyponatremia Received calcium chloride, D50/insulin and bicarbonate and Kayexalate in ED. Recheck potassium post hemodialysis Access -Utilize peripheral IV. Central line if indicated Prophylaxis -GI -lansoprazole 30 mg daily -DVT -SCDs left lower extremity/apixaban Critical Care: The total critical care time was 35 minutes. Time to perform other separately billable procedures was not included in the critical care time. Code Status Full code Discussed Condition With Dr. Dallas/AT physician. No family available. Care plan discussed and all questions answered. Dr. 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
[2017-10-08] MEDS ORDERED: SODIUM CHLOR 0.9% 1000 ML INJ 1,000 ML OTHER PRN ×2 (18:10)
[2017-10-08] MEDS ORDERED: SODIUM CHLOR 0.9% 1000 ML INJ 1,000 ML IV PRN (18:10)
[2017-10-08] MEDS ORDERED: SODIUM CHLORIDE 0.9% FLUSH 10 ML FLUSH IV FLUSH PRN (18:15)
[2017-10-08] MEDS ORDERED: ALBUMIN 25% INJ 100 ML IV PRN (18:15)
[2017-10-08] MEDS ORDERED: MANNITOL 12.5 GM/50 ML VIAL IV PRN (18:15)
[2017-10-08] MEDS ORDERED: ACETAMINOPHEN 325 MG TAB PO PRN (18:15)
[2017-10-08] MEDS ORDERED: NITROGLYCERIN 0.4 MG SL 25 TABS/BTL SL PRN (18:15)
[2017-10-08] MEDS ORDERED: ACETAMINOPHEN 650 MG/20.3 ML UDC PO PRN (18:15)
[2017-10-08] MEDS ORDERED: GELATIN 12 MM/7 MM FOAM TOP PRN (18:15)
[2017-10-08] MEDS ORDERED: ONDANSETRON HCL 4 MG/2 ML VIAL IV PUSH PRN (18:15)
[2017-10-08] MEDS ORDERED: HEPARIN SODIUM - IV 10,000 UNITS/10 ML VIAL IV FLUSH PRN (18:15)
[2017-10-08 18:16] LABS: MAGNESIUM 3.3 MG/DL (1.5-2.5)
[2017-10-08 18:23] LABS: PHOSPHORUS 12.7 MG/DL (2.5-4.9)
--- NOTE | 2017-10-08 18:29 | PD.CONS ---
HPI Service Nephrology Consult Requested By Dr. GONZALEZ Reason for Consult End-stage renal disease with hyperkalemia Primary Care Physician Unknown History of Present Illness Patient is a 47-year-old female with history of end-stage renal disease, peripheral vascular disease, calciphylaxis who had not been doing well and missed several of her dialysis treatment, she was found obtunded currently intubated last potassium was 8 creatinine 17.4, increasing shortness of breath that required intubation, she has peripheral vascular disease and has ischemic left foot, previous right below-knee amputation, her potassium was 8 and she received D50, insulin, sodium bicarbonate, Kayexalate. Review of Systems ROS Limitations: Clinical Condition Past Family Social History Allergies: Coded Allergies: codeine (Verified Allergy, Severe, HYPERACTIVITY &ITCH, 07/11/17) iodine (Verified Allergy, Severe, TOPICAL/ITCH, 07/11/17) potassium iodide (Verified Allergy, Severe, TOPICAL/ITCH, 07/11/17) povidone-iodine (Verified Allergy, Severe, TOPICAL/ITCH, 07/11/17) sodium iodide (Verified Allergy, Severe, TOPICAL/ITCH, 07/11/17) sodium iodide (Verified Allergy, Severe, TOPICAL/ITCH, 07/11/17) iohexol (Verified Allergy, Intermediate, HIVES, 07/11/17) Pork/Porcine Containing Products (Verified Allergy, Unknown, 07/11/17) penicillin G (Verified Allergy, Unknown, 07/11/17) Past Medical History ESRD Diabetes Ischemic foot Peripheral vascular disease Hypertension Noncompliant Abdominal pain previous amputation right leg Diabetic retinopathy with blindness Past Surgical History Right BKA AV fistula Left ischemic leg status post angioplasty Cholecystectomy Right upper extremity fistula Right oophorectomy due to ovarian cyst Dental extractions Tonsillectomy Reported Medications Reported Meds & Active Scripts Active Nicotine Patch (Nicotine) 7 Mg/24 Hr Patch 7 Mg T-DERMAL DAILY Cleocin (Clindamycin HCl) 150 Mg Cap 300 Mg PO Q6H 26 Days Levaquin (Levofloxacin) 250 Mg Tablet 250 Mg PO DAILY Levemir Inj (Insulin Detemir) 1,000 unit/ 10 ML Vial 5 Units SQ BID Do not mix with any other Insulin. Plavix (Clopidogrel Bisulfate) 75 Mg Tab 75 Mg PO DAILY Vitamin D3 (Cholecalciferol) 5,000 Unit Cap 5,000 Units PO DAILY Omeprazole 40 Mg Cap 40 Mg PO DAILY Reported Lisinopril 20 Mg Tab 20 Mg PO BID Eliquis (Apixaban) 2.5 Mg Tab 2.5 Mg PO BID Coreg (Carvedilol) 25 Mg Tab 25 Mg PO BID Sertraline (Sertraline HCl) 100 Mg Tab 100 Mg PO DAILY Nephro-Lory (B-Complex W/ C & Folic Acid) 1 Tab 1 Tab PO DAILY Colace (Docusate Sodium) 100 Mg Capsule 100 Mg BID Active Ordered Medications Current Medications Medications (Trade) Dose Ordered Sig/Jen Route Start Time Stop Time Status Last Admin Sodium Chloride 1,000 ml @ 84 mls/hr [id number] IV 10/08/17 17:17 UNV (NS Flush) 2 ml UNSCH PRN IV FLUSH 10/08/17 17:30 UNV (NS Flush) 2 ml BID IV FLUSH 10/08/17 21:00 UNV (Prevacid Odt) 30 mg DAILY G-TUBE 10/09/17 09:00 UNV (Tears Naturale Opth Soln) 1 drop TID EACH EYE 10/08/17 18:00 UNV (Zofran Inj) 4 mg Q6H PRN IV PUSH 10/08/17 17:30 UNV (Duoneb Neb) 1 ampule Q6HR NEB INH 10/08/17 22:00 UNV (Albuterol Neb) 2.5 mg Q2HR NEB PRN INH 10/08/17 17:30 UNV Miscellaneous Information 1 Q361D XX 10/08/17 17:30 UNV (Areli-Colace) 1 tab BID PO 10/08/17 21:00 UNV (Milk Of Magnesia Liq) 30 ml Q12H PRN PO 10/08/17 17:30 UNV (Senokot) 17.2 mg Q12H PRN PO 10/08/17 17:30 UNV (Dulcolax Supp) 10 mg DAILY PRN RECTAL 10/08/17 17:30 UNV (Lactulose Liq) 30 ml DAILY PRN PO 10/08/17 17:30 UNV (Peridex 0.12% Liq) 15 ml BID@08,20 MT 10/08/17 20:00 UNV Propofol 100 ml @ 0 mls/hr TITRATE PRN IV 10/08/17 17:30 UNV Fentanyl Citrate 250 ml TITRATE PRN IV 10/08/17 17:30 UNV (D50w (Vial) Inj) 50 ml UNSCH PRN IV PUSH 10/08/17 17:30 UNV (Glucagon Inj) 1 mg UNSCH PRN OTHER 10/08/17 17:30 UNV (NovoLIN R SUPPLEMENTAL SCALE) 1 Q4HR SQ 10/08/17 20:00 UNV (Lactulose Liq) 30 ml ONCE ONCE PO 10/08/17 17:30 10/08/17 17:31 UNV (Lactulose Liq) 30 ml DAILY PO 10/09/17 09:00 UNV (Eliquis) 2.5 mg BID PO 10/08/17 21:00 UNV (Zoloft) 100 mg DAILY PO 10/09/17 09:00 UNV Aztreonam 1000 mg/ Sodium Chloride 100 ml @ 200 mls/hr ONCE ONCE IV 10/08/17 17:30 10/08/17 17:59 UNV Metronidazole 50 ml @ 100 mls/hr Q8H IV 10/08/17 17:30 UNV Sodium Chloride 1,000 ml @ 0 mls/hr Q0M PRN OTHER 10/08/17 18:10 UNV (Heparin Inj) 8,000 units UNSCH PRN IV FLUSH 10/08/17 18:15 UNV Sodium Chloride 1,000 ml @ 200 mls/hr Q5H PRN IV 10/08/17 18:10 UNV Sodium Chloride 1,000 ml @ 0 mls/hr Q0M PRN OTHER 10/08/17 18:10 UNV (Mannitol Inj) 12.5 gm UNSCH PRN IV 10/08/17 18:15 UNV Albumin Human 100 ml @ 60 mls/hr UNSCH PRN IV 10/08/17 18:15 UNV (NS Flush) 5 ml UNSCH PRN IV FLUSH 10/08/17 18:15 UNV (Zofran Inj) 4 mg UNSCH PRN IV PUSH 10/08/17 18:15 UNV (Tylenol) 650 mg UNSCH PRN PO 10/08/17 18:15 UNV (Benadryl) 25 mg UNSCH PRN PO 10/08/17 18:15 UNV (Nitrostat Sl) 0.4 mg UNSCH PRN SL 10/08/17 18:15 UNV (Catapres) 0.1 mg UNSCH PRN PO 10/08/17 18:15 UNV (Epogen Inj) 4,000 units UNSCH PRN IV PUSH 10/08/17 18:15 UNV (Gelfoam 12 Mm/7 Mm Top) 1 foam UNSCH PRN TOP 10/08/17 18:15 UNV Sodium Thiosulfate 19097 mg/Sterile Water 200 ml @ 150 mls/hr WITH DIALYSIS PRN IV 10/08/17 18:15 UNV (Tylenol 650 Mg/ 20 ml Liq) 650 mg Q6H PRN PO 10/08/17 18:15 UNV Family History Noncontributory Social History History of smoking cigarettes, marijuana use Physical Exam Vital Signs Vital Signs Date Time Temp Pulse Resp B/P (MAP) Pulse Ox O2 Delivery O2 Flow Rate FiO2 10/08/17 17:34 60 16 121/64 (83) 100 Ventilator 50 10/08/17 17:01 50 10/08/17 17:00 100 Ventilator 50 10/08/17 16:55 100 50 10/08/17 16:20 54 16 142/60 (87) 100 Nasal Cannula 3.00 10/08/17 16:13 70 14 142/60 (87) 94 Physical Exam GENERAL: Well-nourished, well-developed patient. Was intubated on ventilator SKIN: Warm and dry. HEAD: Normocephalic. EYES: No scleral icterus. No injection or drainage. NECK: Supple, intubated CARDIOVASCULAR: Regular rate and rhythm without murmurs, gallops, or rubs. RESPIRATORY: Breath sounds equal bilaterally. No accessory muscle use. GASTROINTESTINAL: Abdomen soft, non-tender, nondistended. EXTREMITIES: 1 plus edema. AV graft NEUROLOGICAL: Under sedation and obtunded Laboratory Laboratory Tests Test 10/08/17 16:10 10/08/17 16:15 10/08/17 16:20 Blood Gas Puncture Site LT RADIAL Blood Gas Patient Temperature 98.6 Blood Gas HCO3 12 Blood Gas Base Excess -16.0 Blood Gas Oxygen Saturation 93 Arterial Blood pH 7.07 Arterial Blood Partial Pressure CO2 44 Arterial Blood Partial Pressure O2 116 Arterial Blood Oxygen Content 15.1 Arterial Blood Carboxyhemoglobin 2.5 Arterial Blood Methemoglobin 0.4 Blood Gas Hemoglobin 11.3 Oxygen Delivery Device NASAL CANNULA Blood Gas Liter Flow 6 White Blood Count 5.4 Red Blood Count 3.87 Hemoglobin 11.9 Hematocrit 36.4 Mean Corpuscular Volume 94.0 Mean Corpuscular Hemoglobin 30.8 Mean Corpuscular Hemoglobin Concent 32.7 Red Cell Distribution Width 16.7 Platelet Count 144 Mean Platelet Volume 8.6 Neutrophils (%) (Auto) 74.6 Lymphocytes (%) (Auto) 17.9 Monocytes (%) (Auto) 5.7 Eosinophils (%) (Auto) 1.3 Basophils (%) (Auto) 0.5 Neutrophils # (Auto) 4.1 Lymphocytes # (Auto) 1.0 Monocytes # (Auto) 0.3 Eosinophils # (Auto) 0.1 Basophils # (Auto) 0.0 CBC Comment DIFF FINAL Differential Comment Blood Urea Nitrogen 114 Creatinine 17.34 Random Glucose 113 Total Protein 7.9 Albumin 3.5 Calcium Level 7.8 Alkaline Phosphatase 122 Aspartate Amino Transf (AST/SGOT) 6 Alanine Aminotransferase (ALT/SGPT) 10 Total Bilirubin 0.5 Sodium Level 129 Potassium Level 8.0 Chloride Level 99 Carbon Dioxide Level 14.1 Anion Gap 16 Estimat Glomerular Filtration Rate 2 Total Creatine Kinase 77 Troponin I LESS THAN 0.02 Lipase 240 Ammonia 44 Date/Time Source Procedure Growth Status 10/08/17 16:30 Blood Peripheral Aerobic Blood Culture Pending Received 10/08/17 16:30 Blood Peripheral Anaerobic Blood Culture Pending Received Result Diagram: 10/08/17 1615 10/08/17 1615 Assessment and Plan Problem List: (1) ESRD (end stage renal disease) on dialysis ICD Codes: N18.6 - End stage renal disease; Z99.2 - Dependence on renal dialysis Status: Chronic Plan: Patient needs emergent hemodialysis and this is being arranged continue to monitor BMP Continue to monitor progress while in the hospital Hemodialysis will be arranged according to her outpatient schedule Calcium is low and 1 g of calcium gluconate IV will be given 1900 seen at dialysis UF 5 L planned (2) Hyperkalemia ICD Codes: E87.5 - Hyperkalemia Status: Acute Plan: Currently on hemodialysis (3) Diabetes ICD Codes: E11.9 - Type 2 diabetes mellitus without complications Status: Chronic Plan: Continue to monitor (4) Calciphylaxis ICD Codes: E83.59 - Other disorders of calcium metabolism Status: Acute Plan: She was getting sodium. 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
--- NOTE | 2017-10-08 19:25 | RADRPT ---
EXAM DATE/TIME: 10/08/2017 18:07 [facility] COMPARISON: CHEST SINGLE AP, October 08, 2017, 17:46. INDICATIONS : Post intubation. MEDICAL HISTORY : Cardiovascular disease. Hypertension. Renal failure, chronic.Diabetes. SURGICAL HISTORY : Right lower leg amputated. ENCOUNTER: Subsequent ACUITY: 1 day PAIN SCORE: Non-responsive. LOCATION: Bilateral chest FINDINGS: Endotracheal tube is in good position above the domenico. A nasogastric tube is in place with its tip i n the stomach. There is elevation of the right hemidiaphragm. There is right lower lobe atelectasis v ersus pneumonia. CONCLUSION: 1. Satisfactory position of endotracheal tube as above. 2. Increasing right-sided elected cyst. Rhys Barker MD on October 08, 2017 at 19:23 Board Certified Radiologist. This report was verified electronically.
[2017-10-08] MEDS: RESP: ALBUTEROL 2.5 MG/IPRATROPIUM 0.5 MG NEB (SCH) INH (20:06)
[2017-10-08] MEDS ORDERED: AZTREONAM INJ 1,000 MG in SODIUM CHLORIDE 0.9% INJ 100 ML IV ONE (21:00)
[2017-10-08] MEDS ORDERED: CALCIUM GLUCONATE INJ 1 GM in SODIUM CHLORIDE 0.9% INJ 100 ML IV ONE (21:00)
--- NOTE | 2017-10-08 22:12 | RADRPT ---
EXAM DATE/TIME: 10/08/2017 21:52 [facility] COMPARISON: No previous studies available for comparison. INDICATIONS : Altered mental status. RADIATION DOSE: 66.34 CTDIvol (mGy) MEDICAL HISTORY : Cardiovascular disease. Hypertension. Diabetes mellitus type 2.dialysis patient SURGICAL HISTORY : None. ENCOUNTER: Initial ACUITY: 1 day PAIN SCALE: Non-responsive LOCATION: cranial TECHNIQUE: Multiple contiguous axial images were obtained of the head. Using automated exposure control and adj ustment of the mA and/or kV according to patient size, radiation dose was kept as low as reasonably a chievable to obtain optimal diagnostic quality images. DICOM format image data is available electro nically for review and comparison. FINDINGS: CEREBRUM: The ventricles are normal for age. No evidence of midline shift, mass lesion, hemorrhage or acute in farction. No extra-axial fluid collections are seen. POSTERIOR FOSSA: The cerebellum and brainstem are intact. The 4th ventricle is midline. The cerebellopontine angle i s unremarkable. EXTRACRANIAL: The visualized portion of the orbits is intact. SKULL: The calvaria is intact. No evidence of skull fracture. CONCLUSION: 1. No evidence of acute intracranial pathology. No masses are identified. Rhys Barker MD on October 08, 2017 at 22:11 Board Certified Radiologist. This report was verified electronically.
[2017-10-08] MEDS: CHLORHEXIDINE 0.12% (ORAL KIT) 15 ML CUP MT SCH (22:30)
[2017-10-08] MEDS ORDERED: LABETALOL HCL 100 MG/20 ML VIAL IV PRN (23:45)
[2017-10-08] MEDS: cloNIDine HCL 0.1 MG TAB PO PRN (23:53)
[2017-10-08] MEDS: DOCUSATE SODIUM 50 MG/SENNA 8.6 MG TAB PO SCH (23:53)
[2017-10-08] MEDS: SODIUM CHLORIDE 0.9% FLUSH 10 ML FLUSH IV FLUSH SCH (23:53)
[2017-10-08] MEDS: PROPOFOL 1000 MG/100 ML INJ 100 ML IV PRN (23:59)
[2017-10-08] MEDS: APIXABAN 2.5 MG TABLET PO SCH (23:59)
[2017-10-09] VITALS (17 sets, daily range): BP systolic 134–174; BP diastolic 62–77; PULSE 52–74; RESP 18; TEMP 93.6–99.4; O2SAT 95–100
[2017-10-09] MEDS: DEXTROSE 50% IN WATER 50 ML VIAL(D50) IV PUSH PRN ×2 (00:05→05:41)
[2017-10-09] MEDS: hydrALAZINE HCL 20 MG/ML VIAL IV PRN (00:14)
[2017-10-09 01:56] LABS: TROPONIN I LESS THAN 0.02 NG/ML (0.02-0.05)
[2017-10-09] MEDS: metroNIDAZOLE 250 MG INJ 50 ML IV SCH ×4 (01:59→21:50)
[2017-10-09] MEDS: PROPOFOL 1000 MG/100 ML INJ 100 ML IV PRN ×5 (02:57→19:49)
[2017-10-09] MEDS: RESP: ALBUTEROL 2.5 MG/IPRATROPIUM 0.5 MG NEB (SCH) INH ×4 (03:28→20:15)
[2017-10-09] MEDS: INSULIN NovoLIN REGULAR SUPPLEMENTAL SCALE SQ SCH ×7 (04:00→23:50)
[2017-10-09 04:12] LABS: BASOPHIL % 0.5 % (0.0-2.0); EOSINOPHIL # 0.1 TH/MM3 (0-0.4); HEMATOCRIT 32.9 % (35.0-46.0); HEMOGLOBIN 10.8 GM/DL (11.6-15.3); LYMPH % 14.2 % (9.0-44.0); LYMPHOCYTE # 0.9 TH/MM3 (1.0-4.8); MEAN PLATELET VOLUME 8.7 FL (7.0-11.0); MONOCYTE # 0.3 TH/MM3 (0-0.9); NEUT % 79.3 % (16.0-70.0); PLATELET COUNT 125 TH/MM3 (150-450); RED BLOOD COUNT 3.62 MIL/MM3 (4.00-5.30); WHITE BLOOD COUNT 6.3 TH/MM3 (4.0-11.0)
[2017-10-09 04:17] LABS: INTERNATIONAL NORMALIZED RATIO 1.2 RATIO
[2017-10-09 04:30] LABS: ALBUMIN 3.1 GM/DL (3.4-5.0); ALKALINE PHOSPHATASE 100 U/L (45-117); ALT (GPT) 10 U/L (10-53); AST (GOT) 13 U/L (15-37); BICARBONATE 20.6 MEQ/L (21.0-32.0); BLOOD UREA NITROGEN 66 MG/DL (7-18); CALCIUM 7.9 MG/DL (8.5-10.1); CHLORIDE 99 MEQ/L (98-107); GLOMERULAR FILTRATION RATE 4 ML/MIN (>89); GLUCOSE,RANDOM 75 MG/DL (74-106); MAGNESIUM 2.4 MG/DL (1.5-2.5); PHOSPHORUS 7.2 MG/DL (2.5-4.9); SODIUM (NA) 138 MEQ/L (136-145); TOTAL BILIRUBIN ADULT 0.6 MG/DL (0.2-1.0); TOTAL PROTEIN 6.6 GM/DL (6.4-8.2)
[2017-10-09 04:38] LABS: CREATININE 11.36 MG/DL (0.50-1.00)
[2017-10-09] MEDS: SODIUM CHLORIDE 0.9% FLUSH 10 ML FLUSH IV FLUSH PRN (05:42)
--- NOTE | 2017-10-09 05:50 | RADRPT ---
EXAM DATE/TIME: 10/09/2017 04:14 [facility] COMPARISON: CHEST SINGLE AP, October 08, 2017, 18:07. INDICATIONS : Short of breath. MEDICAL HISTORY : Cardiovascular disease. Hypertension. Renal failure, chronic.Diabetes. SURGICAL HISTORY : Right lower leg amputated. ENCOUNTER: Subsequent ACUITY: 2 days PAIN SCORE: 0/10 LOCATION: Bilateral chest FINDINGS: Stable ETT and NGT. Continued elevation of the right hemidiaphragm with low lung volumes. persistent right lower lung zone airspace consolidation and likely trace pleural effusion. Minimal left lower roly ng zone airspace consolidation. Cardiac silhouette is enlarged. Central pulmonary vascularity is godwin stinct. Remainder of exam is unchanged. CONCLUSION: 1. Stable ETT and NGT. 2. Low lung volumes with worsening right lower lung zone airspace consolidation and likely trace pleu ral effusion. 3. Minimal left lower lung zone airspace consolidation, likely atelectasis. 4. Cardiomegaly with positive fluid balance. Capo Liu MD on October 09, 2017 at 5:47 Board Certified Radiologist. This report was verified electronically.
[2017-10-09] MEDS: CHLORHEXIDINE 0.12% (ORAL KIT) 15 ML CUP MT SCH ×2 (08:00→19:47)
--- NOTE | 2017-10-09 08:05 | HHI.CCPN ---
Subjective Remarks/Hospital Course 47-year-old female. Date of admission 10/08/2017. Past medical history includes end-stage renal disease on hemodialysis Saturday/Saturday/Saturday,, diabetes mellitus with retinopathy, peripheral vascular disease, peripheral arterial disease, presents via EMS with altered mental status. According to the family members the patient has not had her last 5 scheduled dialysis sessions. They reported that over the last 24 hours she was somnolent and not answering questions or acting her normal self. When paramedics arrived, they found her obtunded and arousable to stimuli however she would fall right back to sleep. The patient presents the same way here. She is unable to give any history. She is unable to state whether she is having any discomfort or not. As soon as she opens her eyes to stimuli, she falls right back asleep. Baseline laboratories revealed a sodium 129 potassium of 8.0 and a creatinine of greater than 17. No peaked T waves are appreciated on EKG. CBC showed thrombocytopenia of 144. Ammonia levels elevated at 44. Patient was intubated using 20 mg etomidate and 10 mg vecuronium. Nephrology was consulted stat for hemodialysis. We are asked to admit the patient CT brain currently pending at time of dictation Subjective 10/09: Afebrile. Status post hemodialysis yesterday. Currently propofol drip at 50 mcg/kg/min and fentanyl drip at 50 mcg/h. Objective Vital Signs Date Time Temp Pulse Resp B/P (MAP) Pulse Ox O2 Delivery O2 Flow Rate FiO2 10/09/17 07:26 99 35 10/09/17 06:00 55 10/09/17 04:00 97.9 18 166/73 (104) 10/08/17 21:54 Ventilator 10/08/17 16:20 3.00 Intake and Output 10/09/17 10/09/17 10/10/17 08:00 16:00 00:00 Intake Total 1160 ml Output Total 400 ml Balance 760 ml Result Diagram: 10/09/17 0320 10/09/17 0320 Other Results Microbiology Date/Time Source Procedure Growth Status 10/08/17 16:30 Blood Peripheral Aerobic Blood Culture Pending Received 10/08/17 16:30 Blood Peripheral Anaerobic Blood Culture Pending Received Imaging Last Impressions Chest X-Ray 10/09/17 0600 Signed Impressions: Service Date/Time: Monday, October 09, 2017 04:14 - CONCLUSION: 1. Stable ETT and NGT. 2. Low lung volumes with worsening right lower lung zone airspace consolidation and likely trace pleural effusion. 3. Minimal left lower lung zone airspace consolidation, likely atelectasis. 4. Cardiomegaly with positive fluid balance. Capo Liu MD Head CT 10/08/17 1616 Signed Impressions: Service Date/Time: Sunday, October 08, 2017 21:52 - CONCLUSION: 1. No evidence of acute intracranial pathology. No masses are identified. Rhys Barker MD Objective Remarks GENERAL: 47-year-old female resting in bed orotracheally intubated SKIN: Warm and dry. Brazen rash on forehead HEAD: Atraumatic. Normocephalic. EYES: Pupils equal and round about 2 mm bilaterally and reactive. No scleral icterus. No injection or drainage. ENT: No nasal bleeding or discharge. Mucous membranes pink and moist. NECK: Trachea midline. No JVD. CARDIOVASCULAR: Bradycardic, RR. S1, S2. No S4. Without murmur RESPIRATORY: Misfit essentially clear to auscultation. Breath sounds equal bilaterally. GASTROINTESTINAL: Abdomen soft, non-tender, obese. Hypoactive bowel sounds are appreciated MUSCULOSKELETAL: Right below the knee potation. Chronic venous stasis left lower extremity. Multiple tattoos on left lower extremity. NEUROLOGICAL: Sedated on propofol drip. Withdraws to pain left upper, right upper and left lower extremity. Positive gag and cough. + corneal reflex. Urinary Catheter: Yes Assessment to: Continue Anderson insert reason: Prolonged Immobilization Vascular Central Line Catheter: No Assessment to: Continue A/P Assessment and Plan Neuro/Psych: Depression Diabetic retinopathy/blindness History of THC use Remote IV drug use Currently on propofol drip at 50 mcg/kg/min/fentanyl drips at 50 mcg an hour for sedation/analgesia while intubated Goal of RASS -2 Daily sedation vacation Sertraline 100 mg p.o. daily to be resumed when clinically indicated CT brain revealed no acute intracranial abnormalities CV: Essential hypertension PVD PAD Dyslipidemia Coronary artery disease Currently on D5 normal saline at 100 cc an hour Restart carvedilol 25 mg twice daily when clinically indicated. Held secondary to bradycardia Currently holding lisinopril 20 mg twice daily in light of hyperkalemia Initial troponin 0.02. Restart clopidogrel bisulfate 75 mg p.o. daily EKG on admission did not reveal peaked T waves. Resp: Acute respiratory failure secondary to altered mental status Tobaccoism [facility] /1.08/16/39 Ventilator bundle Albuterol/ipratropium aerosols every 6 hours with albuterol aerosols every 2 hours. Dyspnea Spontaneous breathing trials when clinically indicated Holding nicotine patch 7 mg daily. Chest x-ray in a.m. 10/10/17 GI: Constipation History of splenic abscess/perisplenic Hyperammonia History of hepatitis C Hypoalbuminemia On docusate sodium 100 mg by mouth twice daily at home. Currently on docusate sodium/senna 1 tablet twice daily Lansoprazole 30 mg by tube daily for GI prophylaxis OGT to LIWS. Start tube feeding if indicated with Nepro. Dietary consult for goal rates Lactulose 30 cc twice daily. Recheck ammonia level in a.m. 10/09 was 62 : Anderson catheter has been placed for accurate I's and O's in a critically ill patient Endo: Diabetes mellitus Currently holding insulin detemir 5 units twice daily. Noted hypoglycemic Sliding scale insulin with Novulin R with Accu-Cheks every 4 hours to maintain glycemia/moderate regimen Check TSH in a.m. was 1.09 Renal: End-stage renal disease on hemodialysis Saturday/Saturday/Saturday. Secondary to diabetes, hypertension, AIN secondary to vancomycin? History of calciphylaxis Emergent hemodialysis with Dr. Gilbert -4800 cc removed 10/08 Further dialysis per nephrology Heme: Chronic apixaban use Thrombocytopenia Normocytic anemia Resume at 2.5 mg twice daily. Noted pork allergy Follow CBC daily. Monitor trends ID: History of laura-splenic abscess Document has been on levofloxacin 250 mg daily and clindamycin 300 mg every 6 hours. Reaffirm with healthcare proxy Aztreonam, metronidazole 1 Check blood cultures 2, sputum, influenza 10/08 MSK: Right below the knee amputation PT evaluate and treat Continue cholecalciferol 5000 units p.o. daily FEN: Hyperkalemia/acute -resolved Hyperphosphatemia Received calcium chloride, D50/insulin and bicarbonate and Kayexalate in ED. Recheck potassium post hemodialysis Start Lanthanon 500 mg q. 3 times daily while intubated Access -Utilize peripheral IV. Central line if indicated Prophylaxis -GI -lansoprazole 30 mg daily -DVT -SCDs left lower extremity/apixaban Critical Care: The total critical care time was 35 minutes. Time to perform other separately billable procedures was not included in the critical care time. Robert Iqbal MD Oct 09, 2017 08:05
[2017-10-09] MEDS: LANTHANUM CARBONATE 500 MG CHEWABLE TABLET CHEW SCH ×3 (08:39→17:20)
[2017-10-09] MEDS: MUPIROCIN 2% OINT 1 APPLIC/GM SYR EACH NARE SCH ×2 (08:39→19:47)
[2017-10-09] MEDS: VITAMIN B CMPLX/VITC/FOLIC AC CAP PO SCH (08:39)
[2017-10-09] MEDS: DOCUSATE SODIUM 50 MG/SENNA 8.6 MG TAB PO SCH ×2 (08:39→19:46)
[2017-10-09] MEDS: LACTULOSE SYRUP 20 GM/30 ML CUP OG-TUBE SCH ×2 (08:40→19:46)
[2017-10-09] MEDS: LANSOPRAZOLE SOLUTAB 30 MG TAB G-TUBE SCH (08:40)
[2017-10-09] MEDS: SODIUM CHLORIDE 0.9% FLUSH 10 ML FLUSH IV FLUSH SCH ×2 (08:40→19:46)
[2017-10-09] MEDS: APIXABAN 2.5 MG TABLET PO SCH ×2 (08:40→19:47)
[2017-10-09] MEDS: SERTRALINE HCL 100 MG TAB PO SCH (08:41)
[2017-10-09] MEDS: CLOPIDOGREL 75 MG TAB PO SCH (08:41)
[2017-10-09] MEDS: ARTIFICIAL TEARS OPTH SOLN 15 ML BTL EACH EYE SCH ×3 (09:00→17:22)
[2017-10-09] MEDS ORDERED: LACTULOSE SYRUP 20 GM/30 ML CUP PO SCH (09:00)
--- NOTE | 2017-10-09 10:58 | HHI.NPPN ---
Subjective History of Present Illness 47 Year old female with ESRD, non compliance, missed her dialysis, obtunded, High K, intubated Objective Data Data Vital Signs Date Time Temp Pulse Resp B/P (MAP) Pulse Ox O2 Delivery O2 Flow Rate FiO2 10/09/17 10:00 53 10/09/17 08:20 35 10/09/17 08:00 52 10/09/17 08:00 40 10/09/17 08:00 93.6 52 18 156/67 (96) 96 10/09/17 07:26 99 35 10/09/17 06:00 55 10/09/17 04:00 100 40 10/09/17 04:00 40 10/09/17 04:00 54 10/09/17 04:00 97.9 53 18 166/73 (104) 100 10/09/17 02:00 56 10/09/17 00:00 62 10/09/17 00:00 97.9 68 18 134/62 (86) 98 10/08/17 23:24 100 60 10/08/17 22:27 97.7 60 18 175/84 (114) 94 10/08/17 22:11 10/08/17 21:54 59 17 157/72 (100) 100 Ventilator 50 10/08/17 21:45 100 100 10/08/17 21:40 100 50 10/08/17 21:19 57 17 122/60 (80) 100 Ventilator 60 10/08/17 21:00 57 17 105/55 (72) 100 Ventilator 60 10/08/17 20:45 57 17 113/57 (75) 99 Ventilator 60 10/08/17 20:30 55 18 114/58 (76) 98 Ventilator 70 10/08/17 20:09 98 70 10/08/17 20:00 54 18 123/60 (81) 98 Ventilator 70 10/08/17 19:15 52 18 117/58 (77) 100 Ventilator 80 10/08/17 19:13 95 80 10/08/17 18:50 54 17 162/71 (101) 97 Ventilator 80 10/08/17 18:22 98.9 54 16 144/67 (92) 98 Ventilator 60 10/08/17 18:20 97 60 10/08/17 17:34 60 16 121/64 (83) 100 Ventilator 50 2/27/18 17:01 50 10/08/17 17:00 100 Ventilator 50 10/08/17 16:55 100 50 10/08/17 16:20 54 16 142/60 (87) 100 Nasal Cannula 3.00 10/08/17 16:13 70 14 142/60 (87) 94 -: 10/09/17 0320 10/09/17 0320 Microbiology 10/08/17 Aerobic Blood Culture, Received Pending 10/08/17 Anaerobic Blood Culture, Received Pending 10/08/17 Aerobic Blood Culture, Received Pending 10/08/17 Anaerobic Blood Culture, Received Pending Physical Exam General Appearance: Well Developed Neck Neck Exam: Neck Supple Pulmonary Resp Exam: Clear Bilaterally, Breath Sounds Equal Cardiology CV Exam: Regular, Normal Sinus Rhythm Gastrointestinal/Abdomen GI Exam: Soft, Non-Tender, Bowel Sounds Present Extremeties Extremities Exam: Trace Edema Extremeties Remarks ischemic Lt foot, rt BKA Assessment/Plan Problem List: (1) ESRD (end stage renal disease) on dialysis ICD Codes: N18.6 - End stage renal disease; Z99.2 - Dependence on renal dialysis Status: Chronic Plan: Patient had hemodialysis 4.8 L of UF done next HD tomorrow follows with Dr. Mason has Calciphylaxis remains intubated (2) Hyperkalemia ICD Codes: E87.5 - Hyperkalemia Status: Acute Plan: resolved on hemodialysis (3) Diabetes ICD Codes: E11.9 - Type 2 diabetes mellitus without complications Status: Chronic Plan: Continue to monitor (4) Calciphylaxis ICD Codes: E83.59 - Other disorders of calcium metabolism Status: Acute Plan: She was getting sodium. 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
--- NOTE | 2017-10-09 11:32 | EKG ---
Date Performed: 10/08/2017 Time Performed: 16:20:40 PTAGE: 47 years EKG: Sinus bradycardia with first degree AV block. Borderline right axis deviation ABNORMAL ECG PREVIOUS TRACING : 06/17/2017 21.36 Compared to prior tracing, rate is much slower. First deg ree AV block is now present. DOCTOR: Rhys Garcia Interpretating Date/Time 10/09/2017 12:12:51
[2017-10-09] MEDS: CHOLECALCIFEROL (VIT D3) 5000 UNIT CAP PO SCH (14:50)
[2017-10-09] MEDS ORDERED: hydrALAZINE HCL 20 MG/ML VIAL IV PUSH PRN (16:30)
[2017-10-09] MEDS ORDERED: NITROGLYCERIN 2% OINT 1 GM PACKET TOPICAL PRN (16:30)
--- NOTE | 2017-10-09 16:45 | ECHRPT ---
Indication: HEART FAILURE CONCLUSIONS Normal left ventricular size. Moderate concentric left ventricular hypertrophy. The left ventricular systolic function is low normal with an estimated ejection fraction in the rang e of 50- 55%. 1216 The left atrial size is moderately dilated. The right atrial size is npnn-[id number] dilated. Trace mitral valve regurgitation. There is mild to moderate tricuspid valve regurgitation. The estimated pulmonary arterial pressure is 38.9 mmHg. mitral annular calcification BP: 156 / 67 HR: 53 Rhythm: Sinus MEASUREMENTS (Male / Female) Normal Values Technical Quality:Fair 2D ECHO LV Diastolic Diameter PLAX 3.6 cm 4.2 - 5.9 / 3.9 - 5.3 cm LV Systolic Diameter PLAX 2.8 cm IVS Diastolic Thickness 1.4 cm 0.6 - 1.0 / 0.6 - 0.9 cm LVPW Diastolic Thickness 1.4 cm 0.6 - 1.0 / 0.6 - 0.9 cm LV Relative Wall Thickness 0.8 RV Internal Dim ED PLAX 3.4 cm LVOT Diameter 2.1 cm Aortic Root Diameter 3.1 cm LA Systolic Diameter LX 3.5 cm 3.0 - 4.0 / 2.7 - 3.8 cm M-MODE AV Cusp Separation MM 2.5 cm DOPPLER AV Peak Velocity 152.0 cm/s AV Peak Gradient 9.2 mmHg AV Mean Gradient 4.0 mmHg AV Velocity Time Integral 28.7 cm LVOT Peak Velocity 98.5 cm/s LVOT Peak Gradient 3.9 mmHg LVOT Velocity Time Integral 17.4 cm AV Area Cont Eq vti 2.1 cm AV Area Cont Eq pk 2.2 cm Mitral E Point Velocity 121.0 cm/s Mitral A Point Velocity 69.6 cm/s Mitral E to A Ratio 1.7 LV E' Lateral Velocity 7.7 cm/s Mitral E to LV E' Lateral Ratio 15.7 LV E' Septal Velocity 4.3 cm/s Mitral E to LV E' Septal Ratio 28.2 TR Peak Velocity 269.0 cm/s TR Peak Gradient 28.9 mmHg Right Atrial Pressure 10.0 mmHg Pulmonary Artery Systolic Pressu 38.9 mmHg Right Ventricular Systolic Press 38.9 mmHg PV Peak Velocity 70.7 cm/s PV Peak Gradient 2.0 mmHg FINDINGS LEFT VENTRICLE Normal left ventricular size. Moderate concentric left ventricular hypertrophy. The left ventricular systolic function is low normal with an estimated ejection fraction in the rang e of 50- 55%. RIGHT VENTRICLE Normal right ventricular size and systolic function. LEFT ATRIUM The left atrial size is moderately dilated. RIGHT ATRIUM The right atrial size is xzue-cj-cyenewuiek dilated. ATRIAL SEPTUM The interatrial septum not well visualized. AORTA The aortic root and proximal ascending aorta are not well visualized. MITRAL VALVE Trace mitral valve regurgitation. AORTIC VALVE Trileaflet aortic valve. No aortic valve stenosis or regurgitation. TRICUSPID VALVE There is mild to moderate tricuspid valve regurgitation. The estimated pulmonary arterial pressure is 38.9 mmHg. PULMONARY VALVE No pulmonary valve regurgitation or stenosis. VESSELS The inferior vena cava was not well visualized. PERICARDIUM No pericardial effusion. Nicho Owen MD, FACC, [facility] [place] (Electronically Signed) Final Date:09 October 2017 16:44
[2017-10-09] MEDS: DEXT 5%-NACL 0.9% 1000 ML INJ 1,000 ML IV SCH (17:20)
[2017-10-10] VITALS (20 sets, daily range): BP systolic 121–178; BP diastolic 59–73; PULSE 65–101; RESP 18–21; TEMP 98.2–100; O2SAT 93–100
[2017-10-10] MEDS: PROPOFOL 1000 MG/100 ML INJ 100 ML IV PRN ×4 (02:50→20:27)
[2017-10-10] MEDS: RESP: ALBUTEROL 2.5 MG/IPRATROPIUM 0.5 MG NEB (SCH) INH ×4 (03:11→21:01)
[2017-10-10] MEDS: INSULIN NovoLIN REGULAR SUPPLEMENTAL SCALE SQ SCH ×5 (04:00→20:58)
[2017-10-10 04:20] LABS: BASOPHIL % 0.9 % (0.0-2.0); EOSINOPHIL # 0.1 TH/MM3 (0-0.4); EOSINOPHIL % 1.3 % (0.0-4.0); LYMPH % 19.2 % (9.0-44.0); LYMPHOCYTE # 0.8 TH/MM3 (1.0-4.8); MEAN CELL VOLUME 90.8 FL (80.0-100.0); MEAN CORPUSCULAR HEMOGLOBIN 30.1 PG (27.0-34.0); MEAN CORPUSCULAR HGB CONC 33.2 % (32.0-36.0); MONO % 8.2 % (0.0-8.0); MONOCYTE # 0.3 TH/MM3 (0-0.9); NEUT % 70.4 % (16.0-70.0); PLATELET COUNT 122 TH/MM3 (150-450); RED BLOOD COUNT 3.31 MIL/MM3 (4.00-5.30); RED CELL DISTRIBUTION WIDTH 17.1 % (11.6-17.2); WHITE BLOOD COUNT 4.3 TH/MM3 (4.0-11.0)
--- NOTE | 2017-10-10 04:44 | RADRPT ---
EXAM DATE/TIME: 10/10/2017 03:20 [facility] COMPARISON: CHEST SINGLE AP, October 09, 2017, 4:14. INDICATIONS : Shortness of breath, possible pulmonary disease. MEDICAL HISTORY : Cardiovascular disease. Hypertension Renal failure Diabetes SURGICAL HISTORY : RT BKA ENCOUNTER: Subsequent ACUITY: 3 days PAIN SCORE: Non-responsive. LOCATION: Bilateral chest FINDINGS: Stable ETT and NGT. Improved right lower lung zone airspace disease. Stable trace right pleural effus ion. Stable left lower lung zone airspace disease. Improved interstitial prominence. Cardiac silhouet te is stable. Right upper extremity stents in place. Remainder of the exam is unchanged. CONCLUSION: 1. Cardiomegaly with improved positive fluid balance. 2. Improved right lower lung zone airspace disease with stable trace effusion. 3. Stable left lower lung zone airspace disease. Capo Liu MD on October 10, 2017 at 4:41 Board Certified Radiologist. This report was verified electronically.
[2017-10-10 04:47] LABS: ALBUMIN 2.7 GM/DL (3.4-5.0); BICARBONATE 19.6 MEQ/L (21.0-32.0); CALCIUM 7.3 MG/DL (8.5-10.1); PHOSPHORUS 6.3 MG/DL (2.5-4.9)
[2017-10-10] MEDS: metroNIDAZOLE 250 MG INJ 50 ML IV SCH ×3 (05:00→22:55)
[2017-10-10 05:11] LABS: CREATININE 11.42 MG/DL (0.50-1.00)
[2017-10-10] MEDS: CHLORHEXIDINE 0.12% (ORAL KIT) 15 ML CUP MT SCH ×3 (08:00→20:38)
[2017-10-10] MEDS: ARTIFICIAL TEARS OPTH SOLN 15 ML BTL EACH EYE SCH ×2 (09:00→12:55)
[2017-10-10] MEDS: VITAMIN B CMPLX/VITC/FOLIC AC CAP PO SCH (09:23)
[2017-10-10] MEDS: CHOLECALCIFEROL (VIT D3) 5000 UNIT CAP PO SCH (09:23)
[2017-10-10] MEDS: MUPIROCIN 2% OINT 1 APPLIC/GM SYR EACH NARE SCH ×2 (09:23→20:27)
[2017-10-10] MEDS: LANTHANUM CARBONATE 500 MG CHEWABLE TABLET CHEW SCH ×3 (09:23→18:10)
[2017-10-10] MEDS: CLOPIDOGREL 75 MG TAB PO SCH (09:23)
[2017-10-10] MEDS: LANSOPRAZOLE SOLUTAB 30 MG TAB G-TUBE SCH (09:23)
[2017-10-10] MEDS: APIXABAN 2.5 MG TABLET PO SCH ×2 (09:24→20:26)
[2017-10-10] MEDS: SERTRALINE HCL 100 MG TAB PO SCH (09:24)
[2017-10-10] MEDS: SODIUM CHLORIDE 0.9% FLUSH 10 ML FLUSH IV FLUSH SCH ×2 (09:24→20:27)
[2017-10-10] MEDS: DOCUSATE SODIUM 50 MG/SENNA 8.6 MG TAB PO SCH ×2 (09:24→20:37)
[2017-10-10] MEDS: LACTULOSE SYRUP 20 GM/30 ML CUP OG-TUBE SCH ×2 (09:24→20:26)
[2017-10-10] MEDS: DEXT 5%-NACL 0.9% 1000 ML INJ 1,000 ML IV SCH (10:34)
[2017-10-10] MEDS: SODIUM THIOSULFATE INJ 25,000 MG in WATER STERILE FOR INJ 100 ML IV PRN (10:50)
--- NOTE | 2017-10-10 12:48 | HHI.CCPN ---
Subjective Remarks/Hospital Course 47-year-old female. Date of admission 10/08/2017. Past medical history includes end-stage renal disease on hemodialysis Saturday/Saturday/Saturday,, diabetes mellitus with retinopathy, peripheral vascular disease, peripheral arterial disease, presents via EMS with altered mental status. According to the family members the patient has not had her last 5 scheduled dialysis sessions. They reported that over the last 24 hours she was somnolent and not answering questions or acting her normal self. When paramedics arrived, they found her obtunded and arousable to stimuli however she would fall right back to sleep. The patient presents the same way here. She is unable to give any history. She is unable to state whether she is having any discomfort or not. As soon as she opens her eyes to stimuli, she falls right back asleep. Baseline laboratories revealed a sodium 129 potassium of 8.0 and a creatinine of greater than 17. No peaked T waves are appreciated on EKG. CBC showed thrombocytopenia of 144. Ammonia levels elevated at 44. Patient was intubated using 20 mg etomidate and 10 mg vecuronium. Nephrology was consulted stat for hemodialysis. We are asked to admit the patient 10/09: Afebrile. Status post hemodialysis yesterday. Currently propofol drip at 50 mcg/kg/min and fentanyl drip at 50 mcg/h. Subjective 10/10: Afebrile. Currently undergoing hemodialysis. Currently propofol drip at 35 mg/kg/min. Will attempt extubation with spontaneous breathing trial post hemodialysis today Objective Vital Signs Date Time Temp Pulse Resp B/P (MAP) Pulse Ox O2 Delivery O2 Flow Rate FiO2 10/10/17 10:00 74 10/10/17 09:22 97 35 10/10/17 08:00 98.7 18 144/63 (90) 10/08/17 21:54 Ventilator 10/08/17 16:20 3.00 Intake and Output 10/10/17 10/10/17 10/11/17 08:00 16:00 00:00 Intake Total 1537 ml Output Total 10 ml 4000 ml Balance 1527 ml -4000 ml Result Diagram: 10/10/17 0405 10/10/17 0405 Other Results Microbiology Date/Time Source Procedure Growth Status 10/08/17 16:30 Blood Peripheral Aerobic Blood Culture - Preliminary NO GROWTH IN 2 DAYS Resulted 10/08/17 16:30 Blood Peripheral Anaerobic Blood Culture - Preliminary NO GROWTH IN 2 DAYS Resulted 10/09/17 11:25 Sputum Endotracheal Gram Stain - Final Resulted 10/09/17 11:25 Sputum Endotracheal Sputum Culture Pending Resulted Imaging Last Impressions Chest X-Ray 10/10/17 0600 Signed Impressions: Service Date/Time: October 03:20 - CONCLUSION: 1. Cardiomegaly with improved positive fluid balance. 2. Improved right lower lung zone airspace disease with stable trace effusion. 3. Stable left lower lung zone airspace disease. Capo Liu MD Head CT 10/08/17 1616 Signed Impressions: Service Date/Time: Sunday, October 08, 2017 21:52 - CONCLUSION: 1. No evidence of acute intracranial pathology. No masses are identified. Rhys Barker MD Objective Remarks GENERAL: 47-year-old female resting in bed orotracheally intubated SKIN: Warm and dry. Brazen rash on forehead HEAD: Atraumatic. Normocephalic. EYES: Pupils equal and round about 2 mm bilaterally and reactive. No scleral icterus. No injection or drainage. ENT: No nasal bleeding or discharge. Mucous membranes pink and moist. NECK: Trachea midline. No JVD. CARDIOVASCULAR: Bradycardic, RR. S1, S2. No S4. Without murmur RESPIRATORY: Misfit essentially clear to auscultation. Breath sounds equal bilaterally. GASTROINTESTINAL: Abdomen soft, non-tender, obese. Hypoactive bowel sounds are appreciated MUSCULOSKELETAL: Right below the knee potation. Chronic venous stasis left lower extremity. Multiple tattoos on left lower extremity. NEUROLOGICAL: Sedated on propofol drip. Withdraws to pain left upper, right upper and left lower extremity. Positive gag and cough. + corneal reflex. Urinary Catheter: Yes Assessment to: Continue Anderson insert reason: Prolonged Immobilization Vascular Central Line Catheter: No Assessment to: Continue A/P Assessment and Plan Neuro/Psych: Depression Diabetic retinopathy/blindness History of THC use Remote IV drug use Currently on propofol drip at 35 mcg/kg/min/fentanyl drips at 50 mcg an hour for sedation/analgesia while intubated Goal of RASS -2 Daily sedation vacation Sertraline 100 mg p.o. daily to be resumed when clinically indicated CT brain revealed no acute intracranial abnormalities CV: Essential hypertension PVD PAD Dyslipidemia Coronary artery disease Off all IV fluids Restart carvedilol 25 mg twice daily when clinically indicated. Held secondary to bradycardia Currently holding lisinopril 20 mg twice daily in light of hyperkalemia Initial troponin 0.02. Restart clopidogrel bisulfate 75 mg p.o. daily EKG on admission did not reveal peaked T waves. Resp: Acute respiratory failure secondary to altered mental status Tobaccoism [facility] 18/500/1./ Ventilator bundle Albuterol/ipratropium aerosols every 6 hours with albuterol aerosols every 2 hours. Dyspnea Spontaneous breathing trials when clinically indicated Holding nicotine patch 7 mg daily. GI: Constipation History of splenic abscess/perisplenic Hyperammonia History of hepatitis C Hypoalbuminemia On docusate sodium 100 mg by mouth twice daily at home. Currently on docusate sodium/senna 1 tablet twice daily Lansoprazole 30 mg by tube daily for GI prophylaxis OGT to LIWS. Start tube feeding if indicated with Nepro. Dietary consult for goal rates Lactulose 30 cc twice daily. Recheck ammonia level in a.m. was 38 : Anderson catheter has been placed for accurate I's and O's in a critically ill patient Endo: Diabetes mellitus Currently holding insulin detemir 5 units twice daily. Noted hypoglycemic Sliding scale insulin with Novulin R with Accu-Cheks every 4 hours to maintain glycemia/moderate regimen Check TSH in a.m. was 1.09 Renal: End-stage renal disease on hemodialysis Saturday/Saturday/Saturday. Secondary to diabetes, hypertension, AIN secondary to vancomycin? History of calciphylaxis Emergent hemodialysis with Dr. Gilbert -4800 cc removed 10/08 Further dialysis per nephrology Heme: Chronic apixaban use Thrombocytopenia Normocytic anemia Resume Apixaban @ 2.5 mg twice daily. Noted pork allergy Follow CBC daily. Monitor trends ID: History of laura-splenic abscess Document has been on levofloxacin 250 mg daily and clindamycin 300 mg every 6 hours. Reaffirm with healthcare proxy Aztreonam, metronidazole 1 Check blood cultures 2, sputum, influenza 10/08 MSK: Right below the knee amputation PT evaluate and treat Continue cholecalciferol 5000 units p.o. daily FEN: Hyperkalemia/acute -resolved Hyperphosphatemia Received calcium chloride, D50/insulin and bicarbonate and Kayexalate in ED. Recheck potassium post hemodialysis Start Lanthanon 500 mg q. 3 times daily while intubated Access -Utilize peripheral IV. Central line if indicated Prophylaxis -GI -lansoprazole 30 mg daily -DVT -SCDs left lower extremity/apixaban Critical Care: The total critical care time was 35 minutes. Time to perform other separately billable procedures was not included in the critical care time. Robert Iqbal MD Oct 10, 2017 12:48
[2017-10-10] MEDS: hydrALAZINE HCL 20 MG/ML VIAL IV PRN (14:24)
--- NOTE | 2017-10-10 15:55 | HHI.NPPN ---
Subjective History of Present Illness 47 Year old female with ESRD, non compliance, missed her dialysis, obtunded, High K, intubated Objective Data Data 10/10/17 10/11/17 19:00 07:00 Output Total 4000 ml Balance -4000 ml Hemodialysis 4000 ml Vital Signs Date Time Temp Pulse Resp B/P (MAP) Pulse Ox O2 Delivery O2 Flow Rate FiO2 10/10/17 14:00 98 10/10/17 13:03 95 35 10/10/17 13:03 35 10/10/17 12:00 83 10/10/17 12:00 35 10/10/17 10:00 74 10/10/17 09:22 97 35 10/10/17 08:00 98.7 71 18 144/63 (90) 97 10/10/17 08:00 35 10/10/17 08:00 71 10/10/17 07:22 98 35 10/10/17 06:00 72 10/10/17 04:15 93 35 10/10/17 04:00 99.0 66 18 121/59 (79) 93 10/10/17 04:00 35 10/10/17 04:00 66 10/10/17 02:00 65 10/10/17 01:45 96 35 10/10/17 00:00 68 10/10/17 00:00 35 10/10/17 00:00 100.0 68 18 132/62 (85) 96 10/09/17 23:08 95 35 10/09/17 22:00 67 10/09/17 20:12 98 35 10/09/17 20:00 35 10/09/17 20:00 74 10/09/17 20:00 99.4 74 18 143/65 (91) 96 10/09/17 18:00 60 10/09/17 17:00 35 10/09/17 16:00 61 10/09/17 16:00 35 10/09/17 16:00 61 18 143/65 (91) 100 -: 10/10/17 0405 10/10/17 0405 Physical Exam General Appearance: Well Developed Neck Neck Exam: Neck Supple Pulmonary Resp Exam: Clear Bilaterally, Breath Sounds Equal Cardiology CV Exam: Regular, Normal Sinus Rhythm Gastrointestinal/Abdomen GI Exam: Soft, Non-Tender, Bowel Sounds Present Extremeties Extremities Exam: Trace Edema Extremeties Remarks ischemic Lt foot, rt BKA Assessment/Plan Problem List: (1) ESRD (end stage renal disease) on dialysis ICD Codes: N18.6 - End stage renal disease; Z99.2 - Dependence on renal dialysis Status: Chronic Plan: Patient had hemodialysis 4 L of UF done next HD sat follows with Dr. Mason has Calciphylaxis remains intubated More alert d/w Dr. Iqbal (2) Hyperkalemia ICD Codes: E87.5 - Hyperkalemia Status: Acute Plan: resolved on hemodialysis (3) Diabetes ICD Codes: E11.9 - Type 2 diabetes mellitus without complications Status: Chronic Plan: Continue to monitor (4) Calciphylaxis ICD Codes: E83.59 - Other disorders of calcium metabolism Status: Acute Plan: She was getting sodium Thiosulfate and this will be continued (5) Acidosis ICD Codes: E87.2 - Acidosis Status: Acute Plan: Due to ESRD Problem Qualifiers (1) Diabetes: Qualified Codes: E11.59 - Type 2 diabetes mellitus with other circulatory complications; Z79.4 - senior living (current) use of insulin Gerri Gilbert MD Oct 10, 2017 15:55
[2017-10-10] MEDS ORDERED: NITROGLYCERIN 2% OINT 1 GM PACKET TOPICAL PRN (16:30)
[2017-10-10] MEDS ORDERED: hydrALAZINE HCL 20 MG/ML VIAL IV PRN (16:45)
[2017-10-10] MEDS ORDERED: LABETALOL HCL 100 MG/20 ML VIAL IV PRN (16:45)
[2017-10-10] MEDS ORDERED: RESP: RACEPINEPHRINE 2.25% 0.5 ML NEB ONE (17:06)
[2017-10-10] MEDS ORDERED: DEXAMETHASONE SOD PHOS 20 MG/5 ML VIAL ONE (17:10)
[2017-10-10] MEDS ORDERED: DEXAMETHASONE SOD PHOS 20 MG/5 ML VIAL IM ONE (17:15)
[2017-10-10] MEDS ORDERED: PROPOFOL 500 MG/50 ML INJ 50 ML ONE (17:26)
[2017-10-10] MEDS ORDERED: ETOMIDATE 40 MG/20 ML VIAL IV PUSH ONE (17:30)
[2017-10-10] MEDS ORDERED: ROCURONIUM INJ 100 MG/10 ML VIAL IV ONE (17:30)
--- NOTE | 2017-10-10 17:33 | PD.PROCEDR ---
Procedure Note Procedure DATE: 10/10/17 PROCEDURE: Orotracheal intubation INDICATION: Stridor DETAILS OF PROCEDURE The patient was placed in optimal position and preoxygenated with 100% FiO2 via bag valve mask. At the start oxygen saturation was 100%. The patient was administered 20 mg etomidate IV and 50 milligrams rocuronium IV. I entered the oropharynx with a size 4 GVL glidescope blade and obtained a grade 1 view of the airway. On single attempt a size 7.5 cuffed endotracheal tube was passed through the vocal cords. Correct tube location was confirmed with end tidal CO2 detector and by auscultating over bilateral lung vázquez. The endotracheal tube was secured with adhesive tape at a depth of 23 cm at the lips. The patient was connected to the ventilator. The patient tolerated the procedure well without any apparent complications. Oxygen saturations were maintained greater than 95% all times. STAT chest x-ray pending at time of dictation. Robert Iqbal MD Oct 10, 2017 17:33
--- NOTE | 2017-10-10 18:00 | RADRPT ---
EXAM DATE/TIME: 10/10/2017 17:34 [facility] COMPARISON: CHEST SINGLE AP, October 10, 2017, 3:20. INDICATIONS : Intubation. MEDICAL HISTORY : Cardiovascular disease. Hypertension Renal failure Diabetes SURGICAL HISTORY : RT BKA ENCOUNTER: Initial ACUITY: 1 day PAIN SCORE: Non-responsive. LOCATION: Bilateral chest FINDINGS: Endotracheal tube is present with tip 2-3 cm above the domenico. There is diffuse bilateral parenchymal lung opacity suggestive of edema. Cardiac silhouette is enlarged. CONCLUSION: Satisfactory endotracheal tube positioning. Worsening aeration. Abhijit Ordaz MD on October 10, 2017 at 17:58 Board Certified Radiologist. This report was verified electronically.
[2017-10-10] MEDS: fentaNYL DRIP 250 ML IV PRN (20:25)
[2017-10-10] MEDS: CARVEDILOL 12.5 MG TAB PO SCH (20:26)
[2017-10-10] MEDS: LISINOPRIL 20 MG TAB PO SCH (20:26)
[2017-10-11] VITALS (18 sets, daily range): BP systolic 134–170; BP diastolic 63–84; PULSE 66–76; RESP 7–19; TEMP 98.8–99.6; O2SAT 92–100
[2017-10-11] MEDS: PROPOFOL 1000 MG/100 ML INJ 100 ML IV PRN ×8 (00:09→20:32)
[2017-10-11] MEDS: DEXAMETHASONE SOD PHOS 4 MG/ML VIAL IV PUSH SCH ×5 (00:10→23:41)
[2017-10-11] MEDS: INSULIN NovoLIN REGULAR SUPPLEMENTAL SCALE SQ SCH ×6 (00:19→20:03)
[2017-10-11] MEDS: RESP: ALBUTEROL 2.5 MG/IPRATROPIUM 0.5 MG NEB (SCH) INH ×4 (02:41→20:49)
[2017-10-11] MEDS: metroNIDAZOLE 250 MG INJ 50 ML IV SCH ×3 (04:54→23:41)
[2017-10-11] MEDS: DEXT 5%-NACL 0.9% 1000 ML INJ 1,000 ML IV SCH (04:58)
[2017-10-11 06:17] LABS: HEMATOCRIT 32.4 % (35.0-46.0); HEMOGLOBIN 10.9 GM/DL (11.6-15.3); MEAN CELL VOLUME 90.4 FL (80.0-100.0); MEAN CORPUSCULAR HEMOGLOBIN 30.4 PG (27.0-34.0); MEAN CORPUSCULAR HGB CONC 33.6 % (32.0-36.0); MEAN PLATELET VOLUME 8.4 FL (7.0-11.0); PLATELET COUNT 140 TH/MM3 (150-450); RED BLOOD COUNT 3.59 MIL/MM3 (4.00-5.30); WHITE BLOOD COUNT 4.5 TH/MM3 (4.0-11.0)
[2017-10-11 06:54] LABS: BICARBONATE 22.5 MEQ/L (21.0-32.0); CALCIUM 7.8 MG/DL (8.5-10.1); CREATININE 8.05 MG/DL (0.50-1.00); MAGNESIUM 2.2 MG/DL (1.5-2.5); PHOSPHORUS 4.2 MG/DL (2.5-4.9)
[2017-10-11] MEDS: CHLORHEXIDINE 0.12% (ORAL KIT) 15 ML CUP MT SCH ×4 (08:00→19:54)
[2017-10-11] MEDS: LACTULOSE SYRUP 20 GM/30 ML CUP OG-TUBE SCH ×2 (09:00→19:54)
[2017-10-11] MEDS: DOCUSATE SODIUM 50 MG/SENNA 8.6 MG TAB PO SCH ×2 (09:00→19:55)
[2017-10-11] MEDS ORDERED: INSULIN DETEMIR 100 UNITS/ML VIAL SQ SCH (09:00)
[2017-10-11] MEDS: CARVEDILOL 12.5 MG TAB PO SCH ×2 (09:18→19:54)
[2017-10-11] MEDS: LANTHANUM CARBONATE 500 MG CHEWABLE TABLET CHEW SCH ×3 (09:18→18:03)
[2017-10-11] MEDS: SERTRALINE HCL 100 MG TAB PO SCH (09:19)
[2017-10-11] MEDS: CLOPIDOGREL 75 MG TAB PO SCH (09:19)
[2017-10-11] MEDS: APIXABAN 2.5 MG TABLET PO SCH ×2 (09:19→19:55)
[2017-10-11] MEDS: LANSOPRAZOLE SOLUTAB 30 MG TAB G-TUBE SCH (09:19)
[2017-10-11] MEDS: CHOLECALCIFEROL (VIT D3) 5000 UNIT CAP PO SCH (09:19)
[2017-10-11] MEDS: LISINOPRIL 20 MG TAB PO SCH ×2 (09:19→19:55)
[2017-10-11] MEDS: VITAMIN B CMPLX/VITC/FOLIC AC CAP PO SCH (09:19)
[2017-10-11] MEDS: MUPIROCIN 2% OINT 1 APPLIC/GM SYR EACH NARE SCH ×3 (09:20→21:00)
[2017-10-11] MEDS: SODIUM CHLORIDE 0.9% FLUSH 10 ML FLUSH IV FLUSH SCH ×2 (09:20→19:54)
--- NOTE | 2017-10-11 10:44 | HHI.NPPN ---
Subjective History of Present Illness 47 Year old female with ESRD, non compliance, missed her dialysis, obtunded, High K, intubated Objective Data Data Vital Signs Date Time Temp Pulse Resp B/P (MAP) Pulse Ox O2 Delivery O2 Flow Rate FiO2 10/11/17 07:40 95 35 10/11/17 06:00 72 10/11/17 04:00 74 10/11/17 04:00 95 35 10/11/17 04:00 35 10/11/17 04:00 98.8 74 19 164/72 (102) 95 10/11/17 02:00 73 10/11/17 00:04 100 40 10/11/17 00:00 76 10/11/17 00:00 50 10/11/17 00:00 99.3 76 18 154/68 (96) 97 10/10/17 22:00 79 10/10/17 21:07 100 50 10/10/17 20:00 75 10/10/17 20:00 99.9 77 18 139/63 (88) 98 10/10/17 20:00 50 10/10/17 18:00 85 10/10/17 17:30 50 10/10/17 17:27 96 50 10/10/17 16:26 101 10/10/17 16:26 96 Nasal Cannula 4 10/10/17 16:00 98.5 101 20 178/71 (106) 99 10/10/17 14:00 98 10/10/17 13:03 95 35 10/10/17 13:03 Nasal Cannula 35 10/10/17 12:00 83 10/10/17 12:00 98.2 83 21 152/73 (99) 100 10/10/17 12:00 35 -: 10/11/17 0526 10/11/17 0526 Physical Exam General Appearance: Well Developed Neck Neck Exam: Neck Supple Pulmonary Resp Exam: Clear Bilaterally, Breath Sounds Equal Cardiology CV Exam: Regular, Normal Sinus Rhythm Gastrointestinal/Abdomen GI Exam: Soft, Non-Tender, Bowel Sounds Present Extremeties Extremities Exam: Trace Edema Extremeties Remarks ischemic Lt foot, rt BKA Assessment/Plan Problem List: (1) ESRD (end stage renal disease) on dialysis ICD Codes: N18.6 - End stage renal disease; Z99.2 - Dependence on renal dialysis Status: Chronic Plan: Patient on hemodialysis TTS Last HD 4 L of UF done next HD sat follows with Dr. Mason has Calciphylaxis remains intubated More alert (2) Hyperkalemia ICD Codes: E87.5 - Hyperkalemia Status: Acute Plan: resolved on hemodialysis (3) Diabetes ICD Codes: E11.9 - Type 2 diabetes mellitus without complications Status: Chronic Plan: Continue to monitor (4) Calciphylaxis ICD Codes: E83.59 - Other disorders of calcium metabolism Status: Acute Plan: She was getting sodium Thiosulfate and this will be continued (5) Acidosis ICD Codes: E87.2 - Acidosis Status: Acute Plan: Due to ESRD Problem Qualifiers (1) Diabetes: Qualified Codes: E11.59 - Type 2 diabetes mellitus with other circulatory complications; 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
--- NOTE | 2017-10-11 17:00 | HHI.CCPN ---
Subjective Remarks/Hospital Course 47-year-old female. Date of admission 10/08/2017. Past medical history includes end-stage renal disease on hemodialysis Saturday/Saturday/Saturday,, diabetes mellitus with retinopathy, peripheral vascular disease, peripheral arterial disease, presents via EMS with altered mental status. According to the family members the patient has not had her last 5 scheduled dialysis sessions. They reported that over the last 24 hours she was somnolent and not answering questions or acting her normal self. When paramedics arrived, they found her obtunded and arousable to stimuli however she would fall right back to sleep. The patient presents the same way here. She is unable to give any history. She is unable to state whether she is having any discomfort or not. As soon as she opens her eyes to stimuli, she falls right back asleep. Baseline laboratories revealed a sodium 129 potassium of 8.0 and a creatinine of greater than 17. No peaked T waves are appreciated on EKG. CBC showed thrombocytopenia of 144. Ammonia levels elevated at 44. Patient was intubated using 20 mg etomidate and 10 mg vecuronium. Nephrology was consulted stat for hemodialysis. We are asked to admit the patient 10/09: Afebrile. Status post hemodialysis yesterday. Currently propofol drip at 50 mcg/kg/min and fentanyl drip at 50 mcg/h. 10/10: Afebrile. Currently undergoing hemodialysis. Currently propofol drip at 35 mcg/kg/min. Will attempt extubation with spontaneous breathing trial post hemodialysis today Subjective 10/11: On extubation yesterday patient with significant stridor hands-free intubated. Currently in dexamethasone 4 mg IV every 6 hours. We will continue for 2 days and we attempt extubation tomorrow. Patient did have cuff leak. Tolerating tube feeds. Objective Vital Signs Date Time Temp Pulse Resp B/P (MAP) Pulse Ox O2 Delivery O2 Flow Rate FiO2 10/11/17 15:47 95 35 10/11/17 14:00 69 10/11/17 12:00 99.6 18 144/64 (90) 10/10/17 16:26 Nasal Cannula 4 Intake and Output 10/11/17 10/11/17 10/12/17 08:00 16:00 00:00 Intake Total 1595.1 ml Output Total 0 ml Balance 1595.1 ml Result Diagram: 10/11/1726 10/11/1726 Other Results Microbiology Date/Time Source Procedure Growth Status 10/08/17 16:30 Blood Peripheral Aerobic Blood Culture - Preliminary NO GROWTH IN 3 DAYS Resulted 10/08/17 16:30 Blood Peripheral Anaerobic Blood Culture - Preliminary NO GROWTH IN 3 DAYS Resulted 10/09/17 11:25 Sputum Endotracheal Gram Stain - Final Complete 10/09/17 11:25 Sputum Culture - Final S. Aureus Mrsa Complete Imaging Last Impressions Chest X-Ray 10/10/17 0600 Signed Impressions: Service Date/Time: October 03:20 - CONCLUSION: 1. Cardiomegaly with improved positive fluid balance. 2. Improved right lower lung zone airspace disease with stable trace effusion. 3. Stable left lower lung zone airspace disease. Capo Liu MD Head CT 10/08/17 1616 Signed Impressions: Service Date/Time: Sunday, October 08, 2017 21:52 - CONCLUSION: 1. No evidence of acute intracranial pathology. No masses are identified. Rhys Barker MD Objective Remarks GENERAL: 47-year-old female resting in bed orotracheally intubated SKIN: Warm and dry. Brazen rash on forehead HEAD: Atraumatic. Normocephalic. EYES: Pupils equal and round about 2 mm bilaterally and reactive. No scleral icterus. No injection or drainage. ENT: No nasal bleeding or discharge. Mucous membranes pink and moist. NECK: Trachea midline. No JVD. CARDIOVASCULAR: Bradycardic, RR. S1, S2. No S4. Without murmur RESPIRATORY: Misfit essentially clear to auscultation. Breath sounds equal bilaterally. GASTROINTESTINAL: Abdomen soft, non-tender, obese. Hypoactive bowel sounds are appreciated MUSCULOSKELETAL: Right below the knee potation. Chronic venous stasis left lower extremity. Multiple tattoos on left lower extremity. NEUROLOGICAL: Sedated on propofol drip. Withdraws to pain left upper, right upper and left lower extremity. Positive gag and cough. + corneal reflex. A/P Assessment and Plan Neuro/Psych: Depression Diabetic retinopathy/blindness History of THC use Remote IV drug use Currently on propofol drip at 35 mcg/kg/min/fentanyl drips at 50 mcg an hour for sedation/analgesia while intubated Goal of RASS -2 Daily sedation vacation Sertraline 100 mg p.o. daily to be resumed when clinically indicated CT brain revealed no acute intracranial abnormalities CV: Essential hypertension PVD PAD Dyslipidemia Coronary artery disease Off all IV fluids Restart carvedilol 25 mg twice daily when clinically indicated. Held secondary to bradycardia Resume lisinopril 20 mg twice daily Initial troponin 0.02. Restart clopidogrel bisulfate 75 mg p.o. daily EKG on admission did not reveal peaked T waves. Resp: Acute respiratory failure secondary to altered mental status Tobaccoism Stridor PRVC 18/500/1./ Ventilator bundle Albuterol/ipratropium aerosols every 6 hours with albuterol aerosols every 2 hours. Dyspnea Continue dexamethasone 4 mg IV every 6 hours for 2 days Spontaneous breathing trials when clinically indicated Holding nicotine patch 7 mg daily. GI: Constipation History of splenic abscess/perisplenic Hyperammonia History of hepatitis C Hypoalbuminemia On docusate sodium 100 mg by mouth twice daily at home. Currently on docusate sodium/senna 1 tablet twice daily Lansoprazole 30 mg by tube daily for GI prophylaxis Currently on Nepro goal rate 45 cc per nutrition recommendations Lactulose 30 cc twice daily. Recheck ammonia level in a.m. was 38 : Anderson catheter has been placed for accurate I's and O's in a critically ill patient Endo: Diabetes mellitus Resuming insulin detemir 5 units twice daily. Noted hypoglycemic on admission now hyperglycemic likely steroid-induced Sliding scale insulin with Novulin R with Accu-Cheks every 4 hours to maintain glycemia/moderate regimen Check TSH in a.m. was 1.09 Renal: End-stage renal disease on hemodialysis Saturday/Saturday/Saturday. Secondary to diabetes, hypertension, AIN secondary to vancomycin? History of calciphylaxis Emergent hemodialysis with Dr. Gilbert -4800 cc removed 10/08 Further dialysis per nephrology Heme: Chronic apixaban use Thrombocytopenia Normocytic anemia Resume Apixaban @ 2.5 mg twice daily. Noted pork allergy Follow CBC daily. Monitor trends ID: History of laura-splenic abscess MRSA pneumonia Document has been on levofloxacin 250 mg daily and clindamycin 300 mg every 6 hours. Reaffirm with healthcare proxy Aztreonam, metronidazole and vancomycin day #3 Check blood cultures 2 10/08 no growth, sputum MRSA, influenza 10/08 negative MSK: Right below the knee amputation PT evaluate and treat Continue cholecalciferol 5000 units p.o. daily FEN: Hyperkalemia/acute -resolved Hyperphosphatemia Start Lanthanon 500 mg q. 3 times daily while intubated Access -Utilize peripheral IV. Central line if indicated Prophylaxis -GI -lansoprazole 30 mg daily -DVT -SCDs left lower extremity/apixaban Critical Care: The total critical care time was 35 minutes. Time to perform other separately billable procedures was not included in the critical care time. Robert Iqbal MD Oct 11, 2017 17:00
[2017-10-11] MEDS ORDERED: Vancomycin Consult Pharmacy 1 EA OTHER SCH (19:30)
[2017-10-11] MEDS: INSULIN DETEMIR 100 UNITS/ML VIAL SQ SCH (20:04)
[2017-10-11] MEDS: fentaNYL DRIP 250 ML IV PRN (20:31)
[2017-10-11] MEDS ORDERED: VANCOMYCIN 1 GM/200 ML PREMIX IV ONE (21:00)
[2017-10-11] MEDS ORDERED: VANCOMYCIN 1,000 MG/NS 250 ML IV ONE ×2 (21:00)
[2017-10-11] MEDS: VANCOMYCIN 25 MG/ML SOLN 100 ML BOTTLE PO SCH (23:41)
[2017-10-12] VITALS (24 sets, daily range): BP systolic 146–178; BP diastolic 69–96; PULSE 69–91; RESP 0–19; TEMP 98.6–99.6; O2SAT 94–99
[2017-10-12] MEDS: PROPOFOL 1000 MG/100 ML INJ 100 ML IV PRN ×5 (00:08→15:03)
[2017-10-12] MEDS: INSULIN NovoLIN REGULAR SUPPLEMENTAL SCALE SQ SCH ×6 (00:09→21:00)
[2017-10-12] MEDS: VANCOMYCIN 25 MG/ML SOLN 100 ML BOTTLE PO SCH ×4 (04:37→23:00)
[2017-10-12] MEDS: RESP: ALBUTEROL 2.5 MG/IPRATROPIUM 0.5 MG NEB (SCH) INH ×4 (04:47→21:09)
[2017-10-12] MEDS: metroNIDAZOLE 250 MG INJ 50 ML IV SCH ×3 (05:26→22:00)
[2017-10-12] MEDS: DEXAMETHASONE SOD PHOS 4 MG/ML VIAL IV PUSH SCH ×3 (05:26→17:22)
[2017-10-12] MEDS: CHLORHEXIDINE 0.12% (ORAL KIT) 15 ML CUP MT SCH ×4 (08:00→20:00)
[2017-10-12] MEDS: LANTHANUM CARBONATE 500 MG CHEWABLE TABLET CHEW SCH ×3 (08:24→17:22)
[2017-10-12] MEDS: MUPIROCIN 2% OINT 1 APPLIC/GM SYR EACH NARE SCH ×4 (08:24→21:00)
[2017-10-12] MEDS: AZTREONAM INJ 1,000 MG in SODIUM CHLORIDE 0.9% INJ 100 ML IV SCH (08:25)
[2017-10-12] MEDS: LANSOPRAZOLE SOLUTAB 30 MG TAB G-TUBE SCH (08:25)
[2017-10-12] MEDS: SODIUM CHLORIDE 0.9% FLUSH 10 ML FLUSH IV FLUSH PRN (08:25)
[2017-10-12] MEDS: SODIUM CHLORIDE 0.9% FLUSH 10 ML FLUSH IV FLUSH SCH ×2 (08:25→21:00)
[2017-10-12] MEDS: LACTULOSE SYRUP 20 GM/30 ML CUP OG-TUBE SCH (08:25)
[2017-10-12] MEDS: CLOPIDOGREL 75 MG TAB PO SCH (08:26)
[2017-10-12] MEDS: VITAMIN B CMPLX/VITC/FOLIC AC CAP PO SCH (08:26)
[2017-10-12] MEDS: APIXABAN 2.5 MG TABLET PO SCH ×2 (08:26→21:00)
[2017-10-12] MEDS: CARVEDILOL 12.5 MG TAB PO SCH ×2 (08:26→21:00)
[2017-10-12] MEDS: CHOLECALCIFEROL (VIT D3) 5000 UNIT CAP PO SCH (08:27)
[2017-10-12] MEDS: INSULIN DETEMIR 100 UNITS/ML VIAL SQ SCH ×2 (08:27→21:00)
[2017-10-12] MEDS: SERTRALINE HCL 100 MG TAB PO SCH (08:27)
[2017-10-12] MEDS: LISINOPRIL 20 MG TAB PO SCH ×2 (08:27→21:00)
[2017-10-12] MEDS: DOCUSATE SODIUM 50 MG/SENNA 8.6 MG TAB PO SCH (08:27)
[2017-10-12 08:36] LABS: HEMOGLOBIN 10.9 GM/DL (11.6-15.3); MEAN CELL VOLUME 91.8 FL (80.0-100.0); MEAN CORPUSCULAR HEMOGLOBIN 30.2 PG (27.0-34.0); MEAN CORPUSCULAR HGB CONC 32.9 % (32.0-36.0); MEAN PLATELET VOLUME 8.2 FL (7.0-11.0); PLATELET COUNT 193 TH/MM3 (150-450); RED CELL DISTRIBUTION WIDTH 16.9 % (11.6-17.2); WHITE BLOOD COUNT 5.9 TH/MM3 (4.0-11.0)
[2017-10-12 08:56] LABS: BICARBONATE 19.6 MEQ/L (21.0-32.0); CALCIUM 7.7 MG/DL (8.5-10.1); CREATININE 8.54 MG/DL (0.50-1.00); MAGNESIUM 2.5 MG/DL (1.5-2.5); PHOSPHORUS 6.7 MG/DL (2.5-4.9)
[2017-10-12] MEDS: SODIUM THIOSULFATE INJ 25,000 MG in WATER STERILE FOR INJ 100 ML IV PRN (11:20)
[2017-10-12] MEDS: EPOETIN ALFA 10,000 UNITS/ML VIAL IV PUSH PRN (11:20)
--- NOTE | 2017-10-12 14:23 | HHI.NPPN ---
Subjective History of Present Illness 47 Year old female with ESRD, non compliance, missed her dialysis, obtunded, High K, intubated Interval History She was seen during dialysis. Currently intubated. UF goal is 4 liters. BFR is only 300 ml/min. Tolerating it well. Objective Data Data 10/12/17 10/13/17 19:00 07:00 Intake Total 248 ml Balance 248 ml Intake IV Total 248 ml Vital Signs Date Time Temp Pulse Resp B/P (MAP) Pulse Ox O2 Delivery O2 Flow Rate FiO2 10/12/17 14:00 79 10/12/17 12:21 97 50 10/12/17 12:00 50 10/12/17 12:00 76 10/12/17 12:00 99.2 76 18 146/69 (94) 95 10/12/17 11:00 73 18 147/78 (101) 94 10/12/17 10:00 71 18 150/76 (100) 96 10/12/17 10:00 71 10/12/17 09:00 74 11 149/82 (104) 97 10/12/17 08:47 97 35 10/12/17 08:00 69 10/12/17 08:00 98.6 69 12 155/78 (103) 96 10/12/17 08:00 35 10/12/17 07:00 70 1 147/82 (103) 95 10/12/17 06:00 76 10/12/17 04:47 97 35 10/12/17 04:00 99.6 80 18 178/88 (118) 97 10/12/17 04:00 80 10/12/17 04:00 35 10/12/17 02:00 74 10/12/17 01:29 96 35 10/12/17 00:00 99.4 72 8 158/85 (109) 96 10/12/17 00:00 35 10/12/17 00:00 72 10/11/17 22:00 76 10/11/17 20:49 95 35 10/11/17 20:00 35 10/11/17 20:00 99.2 73 14 161/84 (109) 96 10/11/17 20:00 73 10/11/17 18:00 76 10/11/17 16:00 99.5 19 134/63 (86) 95 10/11/17 16:00 35 10/11/17 16:00 69 10/11/17 15:47 95 35 -: 10/12/17 0817 10/12/17 0817 Physical Exam General Appearance: Well Developed Neck Neck Exam: Neck Supple Pulmonary Resp Exam: Clear Bilaterally, Breath Sounds Equal Cardiology CV Exam: Regular, Normal Sinus Rhythm Gastrointestinal/Abdomen GI Exam: Soft, Non-Tender, Bowel Sounds Present Extremeties Extremities Exam: Trace Edema Assessment/Plan Problem List: (1) ESRD (end stage renal disease) on dialysis ICD Codes: N18.6 - End stage renal disease; Z99.2 - Dependence on renal dialysis Status: Chronic Plan: Patient on hemodialysis TTS Seen during dialysis. Dialysis as above. follows with Dr. Mason has Calciphylaxis remains intubated (2) Hyperkalemia ICD Codes: E87.5 - Hyperkalemia Status: Acute Plan: resolved with hemodialysis (3) Diabetes ICD Codes: E11.9 - Type 2 diabetes mellitus without complications Status: Chronic Plan: Continue to monitor (4) Calciphylaxis ICD Codes: E83.59 - Other disorders of calcium metabolism Status: Acute Plan: She was getting sodium Thiosulfate and this will be continued Problem Qualifiers (1) Diabetes: Qualified Codes: E11.59 - Type 2 diabetes mellitus with other circulatory complications; Z79.4 - alf (current) use of insulin Leonard Lin MD Oct 12, 2017 14:23
--- NOTE | 2017-10-12 19:09 | HHI.CCPN ---
Subjective Remarks/Hospital Course 47-year-old female. Date of admission 10/08/2017. Past medical history includes end-stage renal disease on hemodialysis Saturday/Saturday/Saturday,, diabetes mellitus with retinopathy, peripheral vascular disease, peripheral arterial disease, presents via EMS with altered mental status. According to the family members the patient has not had her last 5 scheduled dialysis sessions. They reported that over the last 24 hours she was somnolent and not answering questions or acting her normal self. When paramedics arrived, they found her obtunded and arousable to stimuli however she would fall right back to sleep. The patient presents the same way here. She is unable to give any history. She is unable to state whether she is having any discomfort or not. As soon as she opens her eyes to stimuli, she falls right back asleep. Baseline laboratories revealed a sodium 129 potassium of 8.0 and a creatinine of greater than 17. No peaked T waves are appreciated on EKG. CBC showed thrombocytopenia of 144. Ammonia levels elevated at 44. Patient was intubated using 20 mg etomidate and 10 mg vecuronium. Nephrology was consulted stat for hemodialysis. We are asked to admit the patient 10/09: Afebrile. Status post hemodialysis yesterday. Currently propofol drip at 50 mcg/kg/min and fentanyl drip at 50 mcg/h. 10/10: Afebrile. Currently undergoing hemodialysis. Currently propofol drip at 35 mcg/kg/min. Will attempt extubation with spontaneous breathing trial post hemodialysis today 10/11: On extubation yesterday patient with significant stridor hands-free intubated. Currently in dexamethasone 4 mg IV every 6 hours. We will continue for 2 days and we attempt extubation tomorrow. Patient did have cuff leak. Tolerating tube feeds. Subjective 10/12: Patient extubated today currently on 4 L nasal cannula. No signs of stridor. Resting in bed in no acute distress. Will attempt bedside swallow evaluation. Objective Vital Signs Date Time Temp Pulse Resp B/P (MAP) Pulse Ox O2 Delivery O2 Flow Rate FiO2 10/12/17 18:00 88 10/12/17 17:21 99 Nasal Cannula 4.00 10/12/17 16:30 40 10/12/17 16:00 99.6 18 159/79 (105) Intake and Output 3/310/12/17 10/13/17 08:00 16:00 00:00 Intake Total 1251.1 ml 351 ml 614.6 ml Output Total 150 ml 550 ml Balance 1101.1 ml 351 ml 64.6 ml Result Diagram: 10/12/17 0817 10/12/17 0817 Other Results Microbiology Date/Time Source Procedure Growth Status 10/08/17 16:30 Blood Peripheral Aerobic Blood Culture - Preliminary NO GROWTH IN 4 DAYS Resulted 10/08/17 16:30 Blood Peripheral Anaerobic Blood Culture - Preliminary NO GROWTH IN 4 DAYS Resulted 10/09/17 11:25 Sputum Endotracheal Gram Stain - Final Complete 10/09/17 11:25 Sputum Culture - Final S. Aureus Mrsa Complete Imaging Last Impressions Chest X-Ray 10/10/17 0600 Signed Impressions: Service Date/Time: October 03:20 - CONCLUSION: 1. Cardiomegaly with improved positive fluid balance. 2. Improved right lower lung zone airspace disease with stable trace effusion. 3. Stable left lower lung zone airspace disease. Capo Liu MD Head CT 10/08/17 1616 Signed Impressions: Service Date/Time: Sunday, October 08, 2017 21:52 - CONCLUSION: 1. No evidence of acute intracranial pathology. No masses are identified. Rhys Barker MD Objective Remarks GENERAL: 47-year-old female resting in bed in no acute distress on nasal cannula SKIN: Warm and dry. Brazen rash on forehead HEAD: Atraumatic. Normocephalic. EYES: Pupils equal and round about 2 mm bilaterally and reactive. No scleral icterus. No injection or drainage. ENT: No nasal bleeding or discharge. Mucous membranes pink and moist. NECK: Trachea midline. No JVD. No stridor CARDIOVASCULAR: RRR. S1, S2. No S4. Without murmur RESPIRATORY: Distant but essentially clear to auscultation. Breath sounds equal bilaterally. GASTROINTESTINAL: Abdomen soft, non-tender, obese. Hypoactive bowel sounds are appreciated MUSCULOSKELETAL: Right below the knee amputation. Chronic venous stasis left lower extremity. Multiple tattoos on left lower extremity. NEUROLOGICAL: Arousable and follows commands in all 4 extremities including right lower extremity stump. Urinary Catheter: No Assessment to: Continue Vascular Central Line Catheter: No Assessment to: Continue A/P Assessment and Plan Neuro/Psych: Depression Diabetic retinopathy/blindness History of THC use Remote IV drug use Acetaminophen 650 mg p.o. every 6 hours as needed fever/pain 1 through 10 Sertraline 100 mg p.o. daily for depression resumed CT brain revealed no acute intracranial abnormalities CV: Essential hypertension PVD PAD Dyslipidemia Coronary artery disease Off all IV fluids Restart carvedilol 25 mg twice daily Resume lisinopril 20 mg twice daily Initial troponin 0.02. Restart clopidogrel bisulfate 75 mg p.o. daily EKG on admission did not reveal peaked T waves. Resp: Acute respiratory failure secondary to altered mental status Tobaccoism Stridor Nasal cannula to maintain saturations greater than or equal to 92% Incentive spirometry while awake Albuterol/ipratropium aerosols every 6 hours with albuterol aerosols every 2 hours. Dyspnea Continue dexamethasone 4 mg IV every 6 hours for 2 days completed Resuming nicotine patch 7 mg daily. GI: Constipation History of splenic abscess/perisplenic Hyperammonia History of hepatitis C Hypoalbuminemia On docusate sodium 100 mg by mouth twice daily at home. Currently on docusate sodium/senna 1 tablet twice daily Lansoprazole 30 mg by tube daily for GI prophylaxis switch to omeprazole 40 mg p.o. daily which likely be switched to pantoprazole 40 mg p.o. daily Bedside swallow evaluation/speech therapy evaluate and treat. Start ADA diet when appropriate : Anderson catheter has been placed for accurate I's and O's in a critically ill patient Endo: Diabetes mellitus Resuming insulin detemir 10 units twice daily. Noted hypoglycemic on admission now hyperglycemic likely steroid-induced Sliding scale insulin with Novulin R with Accu-Cheks every 4 hours to maintain glycemia/moderate regimen TSH 1.09 Renal: End-stage renal disease on hemodialysis Saturday/Saturday/Saturday. Secondary to diabetes, hypertension, AIN secondary to vancomycin? History of calciphylaxis Emergent hemodialysis with Dr. Gilbert -4000 cc removed 3/3 Further dialysis per nephrology Heme: Chronic apixaban use Normocytic anemia Resume Apixaban @ 2.5 mg twice daily. Noted pork allergy Follow CBC daily. Monitor trends ID: History of laura-splenic abscess MRSA pneumonia Document has been on levofloxacin 250 mg daily and clindamycin 300 mg every 6 hours Aztreonam, metronidazole and vancomycin day #4 Check blood cultures 2 10/08 no growth, sputum MRSA, influenza 10/08 negative MSK: Right below the knee amputation PT evaluate and treat Continue cholecalciferol 5000 units p.o. daily FEN: Hyperkalemia/acute -resolved Hyperphosphatemia Hyponatremia Calcium acetate 667 mg p.o. 3 times daily. Recheck in a.m. Access -Utilize peripheral IV. Central line if indicated Prophylaxis -GI -pantoprazole 40 mg p.o. daily -DVT -SCDs left lower extremity/apixaban Level 3 follow-up Robert Iqbal MD Oct 12, 2017 19:09
[2017-10-12] MEDS: REMOVE OLD PATCH T-DERMAL SCH (21:00)
[2017-10-12] MEDS: DOCUSATE SODIUM 100 MG CAP PO SCH (21:00)
[2017-10-13] VITALS (19 sets, daily range): BP systolic 123–161; BP diastolic 68–82; PULSE 59–73; RESP 12–27; TEMP 97.8–99; O2SAT 88–100
[2017-10-13] MEDS: INSULIN NovoLIN REGULAR SUPPLEMENTAL SCALE SQ SCH ×5 (03:00→21:00)
[2017-10-13] MEDS: RESP: ALBUTEROL 2.5 MG/IPRATROPIUM 0.5 MG NEB (SCH) INH ×4 (03:54→20:48)
[2017-10-13] MEDS: VANCOMYCIN 25 MG/ML SOLN 100 ML BOTTLE PO SCH ×4 (04:00→23:00)
[2017-10-13] MEDS: metroNIDAZOLE 250 MG INJ 50 ML IV SCH ×3 (05:40→21:29)
--- NOTE | 2017-10-13 06:04 | RADRPT ---
EXAM DATE/TIME: 10/13/2017 03:36 [place] COMPARISON: CHEST SINGLE AP, October 10, 2017, 17:34. INDICATIONS : Shortness of breath, possible pulmonary disease. MEDICAL HISTORY : Cardiovascular disease. Hypertension Renal failure Diabetes SURGICAL HISTORY : Rt BKA ENCOUNTER: Subsequent ACUITY: 1 week PAIN SCORE: Non-responsive. LOCATION: Bilateral chest FINDINGS: Single frontal view of the chest demonstrates significant improvement in the aeration of both lungs w ith resolution of bilateral airspace opacities. Both lungs are clear. Both hemidiaphragms are fairl y well delineated. The heart is normal in size. Right subclavian stent. CONCLUSION: The lungs are clear. Mark Watson MD on October 13, 2017 at 6:02 Board Certified Radiologist. This report was verified electronically.
[2017-10-13 06:29] LABS: AUTOMATED NEUTROPHIL # 7.3 TH/MM3 (1.8-7.7); HEMATOCRIT 32.7 % (35.0-46.0); HEMOGLOBIN 10.8 GM/DL (11.6-15.3); LYMPH % 6.5 % (9.0-44.0); LYMPHOCYTE # 0.5 TH/MM3 (1.0-4.8); MEAN CELL VOLUME 91.9 FL (80.0-100.0); MEAN CORPUSCULAR HEMOGLOBIN 30.3 PG (27.0-34.0); MEAN CORPUSCULAR HGB CONC 32.9 % (32.0-36.0); MEAN PLATELET VOLUME 7.7 FL (7.0-11.0); MONO % 5.3 % (0.0-8.0); MONOCYTE # 0.4 TH/MM3 (0-0.9); NEUT % 88.2 % (16.0-70.0); PLATELET COUNT 204 TH/MM3 (150-450); RED BLOOD COUNT 3.56 MIL/MM3 (4.00-5.30); RED CELL DISTRIBUTION WIDTH 16.5 % (11.6-17.2); WHITE BLOOD COUNT 8.2 TH/MM3 (4.0-11.0)
[2017-10-13 07:19] LABS: CALCIUM 8.5 MG/DL (8.5-10.1); CREATININE 6.75 MG/DL (0.50-1.00); MAGNESIUM 2.6 MG/DL (1.5-2.5); PHOSPHORUS 6.2 MG/DL (2.5-4.9); RANDOM VANCOMYCIN 9.1 COMMENT
[2017-10-13] MEDS: CHLORHEXIDINE 0.12% (ORAL KIT) 15 ML CUP MT SCH ×4 (08:00→20:00)
[2017-10-13] MEDS: MUPIROCIN 2% OINT 1 APPLIC/GM SYR EACH NARE SCH ×4 (08:05→21:00)
[2017-10-13] MEDS: INSULIN DETEMIR 100 UNITS/ML VIAL SQ SCH ×2 (08:05→21:28)
[2017-10-13] MEDS: AZTREONAM INJ 1,000 MG in SODIUM CHLORIDE 0.9% INJ 100 ML IV SCH (08:06)
[2017-10-13] MEDS: APIXABAN 2.5 MG TABLET PO SCH ×2 (08:07→21:33)
[2017-10-13] MEDS: SODIUM CHLORIDE 0.9% FLUSH 10 ML FLUSH IV FLUSH SCH ×2 (08:07→21:00)
[2017-10-13] MEDS: CARVEDILOL 12.5 MG TAB PO SCH ×2 (08:07→21:27)
[2017-10-13] MEDS: SODIUM CHLORIDE 0.9% FLUSH 10 ML FLUSH IV FLUSH PRN (08:07)
[2017-10-13] MEDS: SERTRALINE HCL 100 MG TAB PO SCH (08:08)
[2017-10-13] MEDS: VITAMIN B CMPLX/VITC/FOLIC AC CAP PO SCH (08:08)
[2017-10-13] MEDS: CLOPIDOGREL 75 MG TAB PO SCH (08:08)
[2017-10-13] MEDS: CHOLECALCIFEROL (VIT D3) 5000 UNIT CAP PO SCH (08:08)
[2017-10-13] MEDS: CALCIUM ACETATE 667 MG CAP PO SCH ×3 (08:08→17:47)
[2017-10-13] MEDS: LISINOPRIL 20 MG TAB PO SCH ×2 (08:08→21:26)
[2017-10-13] MEDS: PANTOPRAZOLE SOD 40 MG DELAYED RELEASE TAB PO SCH (08:08)
[2017-10-13] MEDS: ONDANSETRON HCL 4 MG/2 ML VIAL IV PUSH PRN ×2 (08:09→21:43)
[2017-10-13] MEDS: NICOTINE 7 MG/24 HR PATCH T-DERMAL SCH (08:09)
[2017-10-13] MEDS: DOCUSATE SODIUM 100 MG CAP PO SCH ×2 (09:00→21:27)
--- NOTE | 2017-10-13 09:15 | HHI.NPPN ---
Subjective History of Present Illness 47 Year old female with ESRD, non compliance. Interval History Had dialysis yesterday. Extubated. Objective Data Data Vital Signs Date Time Temp Pulse Resp B/P (MAP) Pulse Ox O2 Delivery O2 Flow Rate FiO2 10/13/17 06:00 72 10/13/17 04:00 71 10/13/17 04:00 98.7 71 12 158/75 (102) 100 10/13/17 03:54 98 Nasal Cannula 1.50 10/13/17 02:00 73 10/13/17 00:00 73 10/13/17 00:00 99.0 73 17 145/77 (99) 96 10/12/17 22:00 91 10/12/17 21:09 99 Nasal Cannula 3.50 10/12/17 20:00 81 10/12/17 20:00 99.2 81 19 158/75 (102) 97 10/12/17 18:00 88 10/12/17 17:21 99 Nasal Cannula 4.00 10/12/17 17:21 99 Nasal Cannula 4 10/12/17 16:30 40 10/12/17 16:00 40 10/12/17 16:00 99.6 74 18 159/79 (105) 96 10/12/17 16:00 73 10/12/17 15:00 80 18 158/96 (116) 95 10/12/17 14:49 98 40 10/12/17 14:00 79 0 158/94 (115) 95 10/12/17 14:00 79 10/12/17 13:00 77 18 146/78 (100) 95 10/12/17 12:21 97 50 10/12/17 12:00 50 10/12/17 12:00 76 10/12/17 12:00 99.2 76 18 146/69 (94) 95 10/12/17 11:00 73 18 147/78 (101) 94 10/12/17 10:00 71 18 150/76 (100) 96 10/12/17 10:00 71 -: 10/13/17 0610 10/13/17 0610 Physical Exam General Appearance: Well Developed Neck Neck Exam: Neck Supple Pulmonary Resp Exam: Clear Bilaterally, Breath Sounds Equal Cardiology CV Exam: Regular, Normal Sinus Rhythm Gastrointestinal/Abdomen GI Exam: Soft, Non-Tender, Bowel Sounds Present Extremeties Extremities Exam: Trace Edema Assessment/Plan Problem List: (1) ESRD (end stage renal disease) on dialysis ICD Codes: N18.6 - End stage renal disease; Z99.2 - Dependence on renal dialysis Status: Chronic Plan: Patient on hemodialysis TTS follows with Dr. 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
[2017-10-13] MEDS ORDERED: VANCOMYCIN 1,500 MG/NS 500 ML IV ONE ×2 (10:00)
[2017-10-13] MEDS: REMOVE OLD PATCH T-DERMAL SCH (21:00)
[2017-10-14] VITALS (8 sets, daily range): BP systolic 117–153; BP diastolic 49–70; PULSE 55–71; RESP 11–18; TEMP 98.3–98.9; O2SAT 92–100
[2017-10-14] MEDS: INSULIN NovoLIN REGULAR SUPPLEMENTAL SCALE SQ SCH ×5 (03:00→21:00)
[2017-10-14] MEDS: RESP: ALBUTEROL 2.5 MG/IPRATROPIUM 0.5 MG NEB (SCH) INH ×3 (04:16→16:00)
[2017-10-14] MEDS: VANCOMYCIN 25 MG/ML SOLN 100 ML BOTTLE PO SCH ×4 (05:00→22:15)
[2017-10-14] MEDS: metroNIDAZOLE 250 MG INJ 50 ML IV SCH ×3 (05:46→22:14)
--- NOTE | 2017-10-14 06:49 | HHI.CCPN ---
Subjective Remarks/Hospital Course THIS NOTE INTENDED FOR 10/13/2017 47-year-old female. Date of admission 10/08/2017. Past medical history includes end-stage renal disease on hemodialysis Saturday/Saturday/Saturday,, diabetes mellitus with retinopathy, peripheral vascular disease, peripheral arterial disease, presents via EMS with altered mental status. According to the family members the patient has not had her last 5 scheduled dialysis sessions. They reported that over the last 24 hours she was somnolent and not answering questions or acting her normal self. When paramedics arrived, they found her obtunded and arousable to stimuli however she would fall right back to sleep. The patient presents the same way here. She is unable to give any history. She is unable to state whether she is having any discomfort or not. As soon as she opens her eyes to stimuli, she falls right back asleep. Baseline laboratories revealed a sodium 129 potassium of 8.0 and a creatinine of greater than 17. No peaked T waves are appreciated on EKG. CBC showed thrombocytopenia of 144. Ammonia levels elevated at 44. Patient was intubated using 20 mg etomidate and 10 mg vecuronium. Nephrology was consulted stat for hemodialysis. We are asked to admit the patient 10/09: Afebrile. Status post hemodialysis yesterday. Currently propofol drip at 50 mcg/kg/min and fentanyl drip at 50 mcg/h. 10/10: Afebrile. Currently undergoing hemodialysis. Currently propofol drip at 35 mcg/kg/min. Will attempt extubation with spontaneous breathing trial post hemodialysis today 10/11: On extubation yesterday patient with significant stridor hands-free intubated. Currently in dexamethasone 4 mg IV every 6 hours. We will continue for 2 days and we attempt extubation tomorrow. Patient did have cuff leak. Tolerating tube feeds. Subjective 10/12: Patient extubated today currently on 4 L nasal cannula. No signs of stridor. Resting in bed in no acute distress. Will attempt bedside swallow evaluation. 10/13: No acute events overnight. Bedside swallow, successful, speech therapy formal swallow performed .Pt's diet will be advanced to renal 1800-calorie ADA. Objective Vital Signs Date Time Temp Pulse Resp B/P (MAP) Pulse Ox O2 Delivery O2 Flow Rate FiO2 10/14/17 04:00 98.6 60 11 153/63 (93) 100 10/13/17 20:48 Nasal Cannula 2.00 10/12/17 16:30 40 Intake and Output 10/14/17 10/14/17 10/15/17 08:00 16:00 00:00 Intake Total 289 ml Output Total 50 ml Balance 239 ml Result Diagram: 10/13/17 0610 10/13/17 0610 Imaging Last Impressions Chest X-Ray 10/10/17 0600 Signed Impressions: Service Date/Time: October 03:20 - CONCLUSION: 1. Cardiomegaly with improved positive fluid balance. 2. Improved right lower lung zone airspace disease with stable trace effusion. 3. Stable left lower lung zone airspace disease. Capo Liu MD Head CT 10/08/17 1616 Signed Impressions: Service Date/Time: Sunday, October 08, 2017 21:52 - CONCLUSION: 1. No evidence of acute intracranial pathology. No masses are identified. Rhys Barker MD Objective Remarks GENERAL: 47-year-old female resting in bed in no acute distress SKIN: Warm and dry. Brazen rash on forehead HEAD: Atraumatic. Normocephalic. EYES: Pupils equal and round about 2 mm bilaterally and reactive. No scleral icterus. No injection or drainage. ENT: No nasal bleeding or discharge. Mucous membranes pink and moist. NECK: Trachea midline. No JVD. No stridor CARDIOVASCULAR: RRR. S1, S2. No S4. Without murmur RESPIRATORY: Distant but essentially clear to auscultation. Breath sounds equal bilaterally. GASTROINTESTINAL: Abdomen soft, non-tender, obese. Hypoactive bowel sounds are appreciated MUSCULOSKELETAL: Right below the knee amputation. Chronic venous stasis left lower extremity. Multiple tattoos on left lower extremity. NEUROLOGICAL: GCS 15 Follows commands in all 4 extremities including right lower extremity stump. Urinary Catheter: No A/P Assessment and Plan Neuro/Psych: Depression Diabetic retinopathy/blindness History of THC use Remote IV drug use Acetaminophen 650 mg p.o. every 6 hours as needed fever/pain 1 through 10 Sertraline 100 mg p.o. daily for depression resumed CT brain revealed no acute intracranial abnormalities CV: Essential hypertension PVD PAD Dyslipidemia Coronary artery disease Off all IV fluids Carvedilol 25 mg twice daily Resume lisinopril 20 mg twice daily Initial troponin 0.02. Clopidogrel bisulfate 75 mg p.o. daily EKG on admission did not reveal peaked T waves. Resp: Acute respiratory failure secondary to altered mental status Tobaccoism Stridor Nasal cannula to maintain saturations greater than or equal to 92% Incentive spirometry while awake Albuterol/ipratropium aerosols every 6 hours with albuterol aerosols every 2 hours. Dyspnea dexamethasone 4 mg IV every 6 hours x 2 days completed Resuming nicotine patch 7 mg daily. GI: Constipation History of splenic abscess/perisplenic Hyperammonia History of hepatitis C Hypoalbuminemia On docusate sodium 100 mg by mouth twice daily at home. Currently on docusate sodium/senna 1 tablet twice daily Lansoprazole 30 mg by tube daily for GI prophylaxis switch to omeprazole 40 mg p.o. daily which likely be switched to pantoprazole 40 mg p.o. daily 3/4 Start ADA 1800cal , Renal diet : Anderson catheter has been placed for accurate I's and O's in a critically ill patient Endo: Diabetes mellitus Resuming insulin detemir 10 units twice daily. Noted hypoglycemic on admission now hyperglycemic likely steroid-induced Sliding scale insulin with Novulin R with Accu-Cheks every 4 hours to maintain glycemia/moderate regimen TSH 1.09 Renal: End-stage renal disease on hemodialysis Saturday/Saturday/Saturday. Secondary to diabetes, hypertension, AIN secondary to vancomycin? History of calciphylaxis Emergent hemodialysis with Dr. Gilbert -4000 cc removed 3/3 Further dialysis per nephrology Heme: Chronic apixaban use Normocytic anemia Resume Apixaban @ 2.5 mg twice daily. Noted pork allergy Follow CBC daily. Monitor trends ID: History of laura-splenic abscess MRSA pneumonia Document has been on levofloxacin 250 mg daily and clindamycin 300 mg every 6 hours Aztreonam, metronidazole and vancomycin day #4 Check blood cultures 2 10/08 no growth, sputum MRSA, influenza 10/08 negative MSK: Right below the knee amputation PT evaluate and treat Continue cholecalciferol 5000 units p.o. daily FEN: Hyperkalemia/acute -resolved Hyperphosphatemia Hyponatremia Calcium acetate 667 mg p.o. 3 times daily. Recheck in a.m. Access -Utilize peripheral IV. Central line if indicated Prophylaxis -GI -pantoprazole 40 mg p.o. daily -DVT -SCDs left lower extremity/apixaban Level 2 follow-up. Planned transfer to [facility]. Transfer to medical surgical floor when bed available Physician Danya Lee MD Oct 14, 2017 06:49
--- NOTE | 2017-10-14 06:52 | HHI.CCPN ---
Subjective Remarks/Hospital Course 47-year-old female. Date of admission 10/08/2017. Past medical history includes end-stage renal disease on hemodialysis Saturday/Saturday/Saturday,, diabetes mellitus with retinopathy, peripheral vascular disease, peripheral arterial disease, presents via EMS with altered mental status. According to the family members the patient has not had her last 5 scheduled dialysis sessions. They reported that over the last 24 hours she was somnolent and not answering questions or acting her normal self. When paramedics arrived, they found her obtunded and arousable to stimuli however she would fall right back to sleep. The patient presents the same way here. She is unable to give any history. She is unable to state whether she is having any discomfort or not. As soon as she opens her eyes to stimuli, she falls right back asleep. Baseline laboratories revealed a sodium 129 potassium of 8.0 and a creatinine of greater than 17. No peaked T waves are appreciated on EKG. CBC showed thrombocytopenia of 144. Ammonia levels elevated at 44. Patient was intubated using 20 mg etomidate and 10 mg vecuronium. Nephrology was consulted stat for hemodialysis. We are asked to admit the patient 10/09: Afebrile. Status post hemodialysis yesterday. Currently propofol drip at 50 mcg/kg/min and fentanyl drip at 50 mcg/h. 10/10: Afebrile. Currently undergoing hemodialysis. Currently propofol drip at 35 mcg/kg/min. Will attempt extubation with spontaneous breathing trial post hemodialysis today 10/11: On extubation yesterday patient with significant stridor hands-free intubated. Currently in dexamethasone 4 mg IV every 6 hours. We will continue for 2 days and we attempt extubation tomorrow. Patient did have cuff leak. Tolerating tube feeds. Subjective 10/12: Patient extubated today currently on 4 L nasal cannula. No signs of stridor. Resting in bed in no acute distress. Will attempt bedside swallow evaluation. 10/13: No acute events overnight. Bedside swallow, successful, speech therapy formal swallow performed .Pt's diet will be advanced to renal 1800-calorie ADA. 10/14: No acute events overnight. BMP pending. Patient scheduled for IHD today. Patient tolerating diet. Objective Vital Signs Date Time Temp Pulse Resp B/P (MAP) Pulse Ox O2 Delivery O2 Flow Rate FiO2 10/14/17 04:00 98.6 60 11 153/63 (93) 100 10/13/17 20:48 Nasal Cannula 2.00 10/12/17 16:30 40 Intake and Output 10/14/17 10/14/17 10/15/17 08:00 16:00 00:00 Intake Total 289 ml Output Total 50 ml Balance 239 ml Result Diagram: 10/13/17 0610 10/13/17 0610 Imaging Last Impressions Chest X-Ray 10/10/17 0600 Signed Impressions: Service Date/Time: October 03:20 - CONCLUSION: 1. Cardiomegaly with improved positive fluid balance. 2. Improved right lower lung zone airspace disease with stable trace effusion. 3. Stable left lower lung zone airspace disease. Capo Liu MD Head CT 10/08/17 1616 Signed Impressions: Service Date/Time: Sunday, October 08, 2017 21:52 - CONCLUSION: 1. No evidence of acute intracranial pathology. No masses are identified. Rhys Barker MD Objective Remarks GENERAL: 47-year-old female resting in bed in no acute distress SKIN: Warm and dry. HEAD: Atraumatic. Normocephalic. EYES: Pupils equal and round about 2 mm bilaterally and reactive. No scleral icterus. No injection or drainage. ENT: No nasal bleeding or discharge. Mucous membranes pink and moist. NECK: Trachea midline. No JVD. No stridor CARDIOVASCULAR: RRR. S1, S2. No S4. Without murmur RESPIRATORY: Distant but essentially clear to auscultation. Breath sounds equal bilaterally. GASTROINTESTINAL: Abdomen soft, non-tender, obese. Hypoactive bowel sounds are appreciated MUSCULOSKELETAL: Right below the knee amputation. Chronic venous stasis left lower extremity. Multiple tattoos on left lower extremity. NEUROLOGICAL: GCS 15 Follows commands in all 4 extremities including right lower extremity stump. A/P Assessment and Plan Neuro/Psych: Depression Diabetic retinopathy/blindness History of THC use Remote IV drug use Acetaminophen 650 mg p.o. every 6 hours as needed fever/pain 1 through 10 Sertraline 100 mg p.o. daily for depression resumed CT brain revealed no acute intracranial abnormalities CV: Essential hypertension PVD PAD Dyslipidemia Coronary artery disease Off all IV fluids Carvedilol 25 mg twice daily Resume lisinopril 20 mg twice daily Initial troponin 0.02. Clopidogrel bisulfate 75 mg p.o. daily EKG on admission did not reveal peaked T waves. Resp: Acute respiratory failure secondary to altered mental status Tobaccoism Stridor Nasal cannula to maintain saturations greater than or equal to 92% Incentive spirometry while awake Albuterol/ipratropium aerosols every 6 hours with albuterol aerosols every 2 hours. Dyspnea dexamethasone 4 mg IV every 6 hours x 2 days completed Resuming nicotine patch 7 mg daily. GI: Constipation History of splenic abscess/perisplenic Hyperammonia History of hepatitis C Hypoalbuminemia On docusate sodium 100 mg by mouth twice daily at home. Currently on docusate sodium/senna 1 tablet twice daily Lansoprazole 30 mg by tube daily for GI prophylaxis switch to omeprazole 40 mg p.o. daily which likely be switched to pantoprazole 40 mg p.o. daily 3/4 Start ADA 1800cal , Renal diet : Anderson catheter has been placed for accurate I's and O's in a critically ill patient Endo: Diabetes mellitus Resuming insulin detemir 10 units twice daily. Noted hypoglycemic on admission now hyperglycemic likely steroid-induced Sliding scale insulin with Novulin R with Accu-Cheks every 4 hours to maintain glycemia/moderate regimen TSH 1.09 Renal: End-stage renal disease on hemodialysis Saturday/Saturday/Saturday. Secondary to diabetes, hypertension, AIN secondary to vancomycin? History of calciphylaxis Emergent hemodialysis with Dr. Gilbert -4000 cc removed 3/3 Further dialysis per nephrology Heme: Chronic apixaban use Normocytic anemia Resume Apixaban @ 2.5 mg twice daily. Noted pork allergy Follow CBC daily. Monitor trends ID: History of laura-splenic abscess MRSA pneumonia Document has been on levofloxacin 250 mg daily and clindamycin 300 mg every 6 hours Aztreonam, metronidazole and vancomycin day #4 Check blood cultures 2 10/08 no growth, sputum MRSA, influenza 10/08 negative MSK: Right below the knee amputation PT evaluate and treat Continue cholecalciferol 5000 units p.o. daily FEN: Hyperkalemia/acute -resolved Hyperphosphatemia Hyponatremia Calcium acetate 667 mg p.o. 3 times daily. Access -Utilize peripheral IV. Central line if indicated Prophylaxis -GI -pantoprazole 40 mg p.o. daily -DVT -SCDs left lower extremity/apixaban Level 2 follow-up. Planned transfer [facility]. Transfer to medical surgical floor when bed available Physician Danya Lee MD Oct 14, 2017 06:52
[2017-10-14] MEDS: CHLORHEXIDINE 0.12% (ORAL KIT) 15 ML CUP MT SCH ×4 (08:00→20:00)
[2017-10-14] MEDS: NICOTINE 7 MG/24 HR PATCH T-DERMAL SCH (08:51)
[2017-10-14] MEDS: CALCIUM ACETATE 667 MG CAP PO SCH ×3 (08:52→17:22)
[2017-10-14] MEDS: CARVEDILOL 12.5 MG TAB PO SCH ×2 (08:52→22:10)
[2017-10-14] MEDS: SERTRALINE HCL 100 MG TAB PO SCH (08:52)
[2017-10-14] MEDS: LISINOPRIL 20 MG TAB PO SCH ×2 (08:52→22:11)
[2017-10-14] MEDS: CLOPIDOGREL 75 MG TAB PO SCH (08:52)
[2017-10-14] MEDS: PANTOPRAZOLE SOD 40 MG DELAYED RELEASE TAB PO SCH (08:52)
[2017-10-14] MEDS: APIXABAN 2.5 MG TABLET PO SCH ×2 (08:52→22:11)
[2017-10-14] MEDS: CHOLECALCIFEROL (VIT D3) 5000 UNIT CAP PO SCH (08:52)
[2017-10-14] MEDS: AZTREONAM INJ 1,000 MG in SODIUM CHLORIDE 0.9% INJ 100 ML IV SCH (08:53)
[2017-10-14] MEDS: DOCUSATE SODIUM 100 MG CAP PO SCH ×2 (08:53→21:00)
[2017-10-14] MEDS: MUPIROCIN 2% OINT 1 APPLIC/GM SYR EACH NARE SCH ×4 (08:54→22:12)
[2017-10-14] MEDS: SODIUM CHLORIDE 0.9% FLUSH 10 ML FLUSH IV FLUSH SCH ×2 (08:55→22:12)
[2017-10-14] MEDS: VITAMIN B CMPLX/VITC/FOLIC AC CAP PO SCH (08:56)
[2017-10-14] MEDS: INSULIN DETEMIR 100 UNITS/ML VIAL SQ SCH ×2 (09:01→22:12)
[2017-10-14 10:45] LABS: BICARBONATE 24.7 MEQ/L (21.0-32.0); CALCIUM 8.2 MG/DL (8.5-10.1); CREATININE 7.7 MG/DL (0.50-1.00)
[2017-10-14] MEDS: SODIUM CHLORIDE 0.9% FLUSH 10 ML FLUSH IV FLUSH PRN (12:01)
--- NOTE | 2017-10-14 13:07 | HHI.NPPN ---
Subjective History of Present Illness 47 Year old female with ESRD, non compliance. Objective Data Data Vital Signs Date Time Temp Pulse Resp B/P (MAP) Pulse Ox O2 Delivery O2 Flow Rate FiO2 10/14/17 12:00 67 10/14/17 12:00 98.7 67 12 137/62 (87) 97 10/14/17 09:00 61 10/14/17 08:00 98.5 55 14 117/49 (71) 93 10/14/17 08:00 55 10/14/17 04:00 98.6 60 11 153/63 (93) 100 10/14/17 00:00 98.3 60 12 153/70 (97) 97 10/13/17 20:48 98 Nasal Cannula 2.00 10/13/17 20:00 98.0 65 20 144/71 (95) 96 10/13/17 18:00 65 10/13/17 18:00 65 18 137/70 (92) 96 10/13/17 17:00 59 27 123/71 (88) 94 10/13/17 16:00 97.8 63 13 132/68 (89) 95 10/13/17 16:00 63 10/13/17 15:00 62 12 131/68 (89) 99 10/13/17 14:00 61 10/13/17 14:00 61 15 127/69 (88) 96 -: 10/13/17 0610 10/14/17 0930 Physical Exam General Appearance: Well Developed Neck Neck Exam: Neck Supple Pulmonary Resp Exam: Clear Bilaterally, Breath Sounds Equal Cardiology CV Exam: Regular, Normal Sinus Rhythm Gastrointestinal/Abdomen GI Exam: Soft, Non-Tender, Bowel Sounds Present Extremeties Extremities Exam: Trace Edema Extremeties Remarks ischemic Lt foot, rt BKA Assessment/Plan Problem List: (1) ESRD (end stage renal disease) on dialysis ICD Codes: N18.6 - End stage renal disease; Z99.2 - Dependence on renal dialysis Status: Chronic Plan: Patient on hemodialysis TTS done Sat UF [address] 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
[2017-10-14] MEDS: REMOVE OLD PATCH T-DERMAL SCH (21:00)
[2017-10-14] MEDS ORDERED: diphenhydrAMINE HCL 25 MG CAP PO ONE (23:00)
[2017-10-15] VITALS (8 sets, daily range): BP systolic 122–186; BP diastolic 58–82; PULSE 61–82; RESP 16–18; TEMP 95.5–98.9; O2SAT 90–100
[2017-10-15] MEDS ORDERED: diphenhydrAMINE HCL 25 MG CAP PO ONE (00:45)
[2017-10-15] MEDS: INSULIN NovoLIN REGULAR SUPPLEMENTAL SCALE SQ SCH ×5 (03:00→21:00)
[2017-10-15] MEDS: RESP: ALBUTEROL 2.5 MG/IPRATROPIUM 0.5 MG NEB (SCH) INH ×4 (03:11→20:25)
[2017-10-15] MEDS: VANCOMYCIN 25 MG/ML SOLN 100 ML BOTTLE PO SCH ×4 (05:22→21:25)
[2017-10-15] MEDS: CHLORHEXIDINE 0.12% (ORAL KIT) 15 ML CUP MT SCH ×4 (05:23→20:00)
[2017-10-15] MEDS: metroNIDAZOLE 250 MG INJ 50 ML IV SCH ×3 (05:23→21:22)
[2017-10-15] MEDS: MUPIROCIN 2% OINT 1 APPLIC/GM SYR EACH NARE SCH ×4 (08:42→21:24)
[2017-10-15] MEDS: CHOLECALCIFEROL (VIT D3) 5000 UNIT CAP PO SCH (08:43)
[2017-10-15] MEDS: CALCIUM ACETATE 667 MG CAP PO SCH ×3 (08:43→17:35)
[2017-10-15] MEDS: PANTOPRAZOLE SOD 40 MG DELAYED RELEASE TAB PO SCH (08:43)
[2017-10-15] MEDS: DOCUSATE SODIUM 100 MG CAP PO SCH ×2 (08:43→21:00)
[2017-10-15] MEDS: CARVEDILOL 12.5 MG TAB PO SCH ×2 (08:43→21:21)
[2017-10-15] MEDS: APIXABAN 2.5 MG TABLET PO SCH ×2 (08:43→21:21)
[2017-10-15] MEDS: CLOPIDOGREL 75 MG TAB PO SCH (08:43)
[2017-10-15] MEDS: NICOTINE 7 MG/24 HR PATCH T-DERMAL SCH (08:44)
[2017-10-15] MEDS: SODIUM CHLORIDE 0.9% FLUSH 10 ML FLUSH IV FLUSH SCH ×2 (08:44→21:23)
[2017-10-15] MEDS: AZTREONAM INJ 1,000 MG in SODIUM CHLORIDE 0.9% INJ 100 ML IV SCH (08:44)
[2017-10-15] MEDS: VITAMIN B CMPLX/VITC/FOLIC AC CAP PO SCH (08:44)
[2017-10-15] MEDS: SERTRALINE HCL 100 MG TAB PO SCH (08:44)
[2017-10-15] MEDS: LISINOPRIL 20 MG TAB PO SCH ×2 (08:44→21:21)
[2017-10-15] MEDS: INSULIN DETEMIR 100 UNITS/ML VIAL SQ SCH ×2 (08:53→21:23)
[2017-10-15 09:59] LABS: BICARBONATE 25.8 MEQ/L (21.0-32.0); CALCIUM 8.1 MG/DL (8.5-10.1); CREATININE 8.62 MG/DL (0.50-1.00)
[2017-10-15] MEDS: EPOETIN ALFA 10,000 UNITS/ML VIAL IV PUSH PRN (09:59)
--- NOTE | 2017-10-15 11:52 | HHI.NPPN ---
Subjective History of Present Illness 47 Year old female with ESRD, non compliance. Objective Data Data Vital Signs Date Time Temp Pulse Resp B/P (MAP) Pulse Ox O2 Delivery O2 Flow Rate FiO2 10/15/17 08:00 97.1 62 16 122/58 (79) 90 10/15/17 04:00 98.2 80 18 131/62 (85) 93 10/15/17 03:11 93 10/15/17 00:00 98.9 82 18 139/65 (89) 93 10/14/17 20:00 98.3 71 18 147/64 (91) 94 10/14/17 17:22 98.6 71 18 148/67 (94) 92 10/14/17 16:00 66 10/14/17 16:00 98.9 66 13 150/62 (91) 96 10/14/17 12:00 67 10/14/17 12:00 98.7 67 12 137/62 (87) 97 -: 10/13/17 0610 10/15/17 0622 Physical Exam General Appearance: Well Developed Neck Neck Exam: Neck Supple Pulmonary Resp Exam: Clear Bilaterally, Breath Sounds Equal Cardiology CV Exam: Regular, Normal Sinus Rhythm Gastrointestinal/Abdomen GI Exam: Soft, Non-Tender, Bowel Sounds Present Extremeties Extremities Exam: Trace Edema Extremeties Remarks ischemic Lt foot, rt BKA Assessment/Plan Problem List: (1) ESRD (end stage renal disease) on dialysis ICD Codes: N18.6 - End stage renal disease; Z99.2 - Dependence on renal dialysis Status: Chronic Plan: Patient on hemodialysis TTS seen during dialysis UF [address] 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
[2017-10-15] MEDS: SODIUM THIOSULFATE INJ 25,000 MG in WATER STERILE FOR INJ 100 ML IV PRN (12:00)
--- NOTE | 2017-10-15 15:50 | HHI.PR ---
Subjective Remarks awake and alert, no complains of nausea or vomiting or pain tolerating hemodialysis childlike in nature states she gets around mostly with a wheelchair Objective Vitals Vital Signs Date Time Temp Pulse Resp B/P (MAP) Pulse Ox O2 Delivery O2 Flow Rate FiO2 10/15/17 15:40 93 Nasal Cannula 2.00 10/15/17 08:00 97.1 62 16 122/58 (79) 90 10/15/17 04:00 98.2 80 18 131/62 (85) 93 10/15/17 03:11 93 10/15/17 00:00 98.9 82 18 139/65 (89) 93 10/14/17 20:00 98.3 71 18 147/64 (91) 94 10/14/17 17:22 98.6 71 18 148/67 (94) 92 10/14/17 16:00 66 10/14/17 16:00 98.9 66 13 150/62 (91) 96 I/O 10/14/17 10/14/17 10/14/17 10/15/17 10/15/17 10/15/17 07:00 15:00 23:00 07:00 15:00 23:00 Intake Total 289 ml 620 ml 240 ml 100 ml Output Total 50 ml 100 ml 4000 ml Balance 239 ml 520 ml 240 ml -3900 ml Intake Oral 240 ml 620 ml 240 ml IV Total 49 ml 100 ml Output Urine Total 0 ml 0 ml Stool Total 50 ml 100 ml Emesis 0 ml Hemodialysis 4000 ml # Voids 0 # Bowel Movements 2 Result Diagram: 10/13/17 0610 10/15/17 0850 Imaging Last Impressions Chest X-Ray 10/13/17 0600 Signed Impressions: Service Date/Time: Friday, October 13, 2017 03:36 - CONCLUSION: The lungs are clear. Mark Watson MD Head CT 10/08/17 1616 Signed Impressions: Service Date/Time: Sunday, October 08, 2017 21:52 - CONCLUSION: 1. No evidence of acute intracranial pathology. No masses are identified. Rhys Barker MD Objective Remarks awake and alert, no acute distress anicteric no rales, occasinal rhonchi regularr hythm abdomen soft, nontender Right UE- AVF + bruit Right BKA, Left Lower extremity no edema moves all extremities spontaneously A/P Problem List: (1) Acute respiratory failure ICD Code: J96.00 - Acute respiratory failure, unspecified whether with hypoxia or hypercapnia (2) Altered mental status ICD Code: R41.82 - Altered mental status, unspecified Status: Resolved (3) ESRD (end stage renal disease) on dialysis ICD Code: N18.6 - End stage renal disease; Z99.2 - Dependence on renal dialysis Status: Chronic (4) Hyperkalemia ICD Code: E87.5 - Hyperkalemia Status: Acute (5) PAD (peripheral artery disease) ICD Code: I73.9 - Peripheral vascular disease, unspecified Status: Acute Permanent Comment: 10/2015 -Dr. Santillan - PAD - Rt calf/foot - angiogram done. Chronic total occlusion of AT with right AT Ath/[employer] on 09/23/15. Right great toe not healing. Discoloration 4th toe. Dr. Garvey podiatry referral. Ultrasound 3 months for post procedure. If ok then Q6 months us with office visit. Last Edited By: Jude Ron on Oct 20, 2015 15:58 (6) Tobacco abuse ICD Code: Z72.0 - Tobacco use Status: Chronic (7) Hypertension ICD Code: I10 - Essential (primary) hypertension Status: Chronic (8) Diabetes ICD Code: E11.9 - Type 2 diabetes mellitus without complications Status: Chronic (9) Chronic Medical Problems Status: Chronic (10) Peripheral vascular disease ICD Code: I73.9 - Peripheral vascular disease, unspecified Status: Acute (11) Thrombocytopenia ICD Code: D69.6 - Thrombocytopenia, unspecified (12) Diabetic retinopathy ICD Code: E11.319 - Type 2 diabetes mellitus with unspecified diabetic retinopathy without macular edema Status: Chronic (13) Hyponatremia ICD Code: E87.1 - Hypo-osmolality and hyponatremia (14) Depression ICD Code: F32.9 - Major depressive disorder, single episode, unspecified Status: Chronic Assessment and Plan 47 years old female Depression Diabetic retinopathy/blindness History of THC use Remote IV drug use Acetaminophen 650 mg p.o. every 6 hours as needed fever/pain 1 through 10 Sertraline 100 mg p.o. daily for depression resumed CT brain revealed no acute intracranial abnormalities CV: Essential hypertension PVD PAD Dyslipidemia Coronary artery disease Off all IV fluids Carvedilol 25 mg twice daily lisinopril 20 mg twice daily Initial troponin 0.02. Clopidogrel bisulfate 75 mg p.o. daily Resp: Acute respiratory failure secondary to altered mental status Tobaccoism Stridor Nasal cannula to maintain saturations greater than or equal to 92% Incentive spirometry while awake Albuterol/ipratropium aerosols every 6 hours with albuterol aerosols every 2 hours. dexamethasone 4 mg IV every 6 hours x 2 days completed Resuming nicotine patch 7 mg daily. GI: Constipation History of splenic abscess/perisplenic Hyperammonia History of hepatitis C Hypoalbuminemia On docusate sodium 100 mg by mouth twice daily at home. Currently on docusate sodium/senna 1 tablet twice daily Lansoprazole 30 mg by tube daily for GI prophylaxis switch to omeprazole 40 mg p.o. daily which likely be switched to pantoprazole 40 mg p.o. daily on ADA 1800cal , Renal diet C diff colitis - on po Vancomycin : Anderson catheter has been placed for accurate I's and O's in a critically ill patient Endo: Diabetes mellitus On insulin detemir 5 units twice daily. Noted hypoglycemic on admission now hyperglycemic likely steroid-induced Sliding scale insulin with Novulin R with Accu-Cheks every 4 hours to maintain glycemia/moderate regimen TSH 1.09 Renal: End-stage renal disease on hemodialysis Saturday/Saturday/Saturday. Secondary to diabetes, hypertension, AIN secondary to vancomycin? History of calciphylaxis Further dialysis per nephrology Heme: Chronic apixaban use Normocytic anemia Resume Apixaban @ 2.5 mg twice daily. Noted pork allergy Follow CBC daily. Monitor trends ID: History of laura-splenic abscess MRSA pneumonia Document has been on levofloxacin 250 mg daily and clindamycin 300 mg every 6 hours Aztreonam, metronidazole and vancomycin day #5 Check blood cultures 2 10/08 no growth, sputum MRSA, influenza 10/08 negative MSK: Right below the knee amputation- stump dry States history left foot injury PT evaluate and treat. states gets around with a wheelchair most of the time Continue cholecalciferol 5000 units p.o. daily FEN: Hyperkalemia/acute -resolved Hyperphosphatemia Hyponatremia Calcium acetate 667 mg p.o. 3 times daily. Access -Utilize peripheral IV. Central line if indicated Prophylaxis -GI -pantoprazole 40 mg p.o. daily -DVT -SCDs left lower extremity/apixaban Activity- out of bed to chair for all meal CM consult for DC planning Problem Qualifiers (1) Acute respiratory failure: Qualified Codes: J96.01 - Acute respiratory failure with hypoxia (2) Altered mental status: Qualified Codes: R41.82 - Altered mental status, unspecified (3) Hypertension: Qualified Codes: I10 - Essential (primary) hypertension (4) Diabetes: Qualified Codes: E11.59 - Type 2 diabetes mellitus with other circulatory complications; Z79.4 - longterm (current) use of insulin (5) Diabetic retinopathy: Qualified Codes: E10.319 - Type 1 diabetes mellitus with unspecified diabetic retinopathy without macular edema (6) Depression: Qualified Codes: F33.9 - Major depressive disorder, recurrent, unspecified Jagdish Lozano MD Oct 15, 2017 15:50
[2017-10-15] MEDS ORDERED: VANCOMYCIN 1,000 MG/NS 250 ML IV ONE ×2 (16:00)
[2017-10-15] MEDS: diphenhydrAMINE HCL 25 MG CAP PO PRN (18:48)
[2017-10-15] MEDS: REMOVE OLD PATCH T-DERMAL SCH (21:00)
[2017-10-16] VITALS (8 sets, daily range): BP systolic 125–181; BP diastolic 59–79; PULSE 71–88; RESP 17–20; TEMP 96.5–99.2; O2SAT 90–98
[2017-10-16] MEDS: INSULIN NovoLIN REGULAR SUPPLEMENTAL SCALE SQ SCH ×5 (03:00→22:41)
[2017-10-16] MEDS: RESP: ALBUTEROL 2.5 MG/IPRATROPIUM 0.5 MG NEB (SCH) INH ×3 (03:34→16:46)
[2017-10-16] MEDS: VANCOMYCIN 25 MG/ML SOLN 100 ML BOTTLE PO SCH ×4 (06:24→23:11)
[2017-10-16] MEDS: metroNIDAZOLE 250 MG INJ 50 ML IV SCH (06:24)
[2017-10-16] MEDS: CHLORHEXIDINE 0.12% (ORAL KIT) 15 ML CUP MT SCH ×4 (07:31→20:00)
[2017-10-16] MEDS: AZTREONAM INJ 1,000 MG in SODIUM CHLORIDE 0.9% INJ 100 ML IV SCH (08:44)
[2017-10-16] MEDS: MUPIROCIN 2% OINT 1 APPLIC/GM SYR EACH NARE SCH ×4 (08:44→21:00)
[2017-10-16] MEDS: CHOLECALCIFEROL (VIT D3) 5000 UNIT CAP PO SCH (08:45)
[2017-10-16] MEDS: DOCUSATE SODIUM 100 MG CAP PO SCH ×2 (08:45→21:00)
[2017-10-16] MEDS: APIXABAN 2.5 MG TABLET PO SCH ×2 (08:45→22:39)
[2017-10-16] MEDS: CLOPIDOGREL 75 MG TAB PO SCH (08:45)
[2017-10-16] MEDS: CALCIUM ACETATE 667 MG CAP PO SCH ×3 (08:45→17:06)
[2017-10-16] MEDS: NICOTINE 7 MG/24 HR PATCH T-DERMAL SCH (08:45)
[2017-10-16] MEDS: PANTOPRAZOLE SOD 40 MG DELAYED RELEASE TAB PO SCH (08:45)
[2017-10-16] MEDS: CARVEDILOL 12.5 MG TAB PO SCH ×2 (08:45→22:38)
[2017-10-16] MEDS: LISINOPRIL 20 MG TAB PO SCH ×2 (08:45→22:39)
[2017-10-16] MEDS: SERTRALINE HCL 100 MG TAB PO SCH (08:45)
[2017-10-16] MEDS: INSULIN DETEMIR 100 UNITS/ML VIAL SQ SCH ×2 (08:46→22:40)
[2017-10-16] MEDS: VITAMIN B CMPLX/VITC/FOLIC AC CAP PO SCH (08:46)
[2017-10-16] MEDS: SODIUM CHLORIDE 0.9% FLUSH 10 ML FLUSH IV FLUSH SCH ×2 (08:56→22:43)
--- NOTE | 2017-10-16 08:58 | HHI.PR ---
Subjective Remarks patient awake and alert, oriented x 3 pleasant denies any pain mild nausea cough- minimal yellowish sputum feels better Objective Vitals Vital Signs Date Time Temp Pulse Resp B/P (MAP) Pulse Ox O2 Delivery O2 Flow Rate FiO2 10/16/17 08:23 97 Nasal Cannula 2.00 10/16/17 08:00 96.5 73 19 125/59 (81) 91 10/16/17 04:00 98.4 71 17 126/62 (83) 98 10/16/17 00:00 99.2 71 17 134/60 (84) 98 10/15/17 20:26 99 Nasal Cannula 2.00 10/15/17 20:00 98.1 73 17 134/61 (85) 94 10/15/17 16:00 95.5 61 18 186/82 (116) 100 10/15/17 15:40 93 Nasal Cannula 2.00 I/O 10/15/17 10/15/17 10/15/17 10/16/17 10/16/17 10/16/17 07:00 15:00 23:00 07:00 15:00 23:00 Intake Total 290 ml 100 ml 950 ml 240 ml Output Total 4000 ml 0 ml Balance 290 ml -3900 ml 950 ml 240 ml Intake Oral 240 ml 600 ml 240 ml IV Total 50 ml 100 ml 350 ml Output Urine Total 0 ml Hemodialysis 4000 ml # Bowel Movements 2 1 1 Result Diagram: 10/13/17 0610 10/15/17 0850 Imaging Last Impressions Chest X-Ray 10/13/17 0600 Signed Impressions: Service Date/Time: Friday, October 13, 2017 03:36 - CONCLUSION: The lungs are clear. Mark Watson MD Head CT 10/08/17 1616 Signed Impressions: Service Date/Time: Sunday, October 08, 2017 21:52 - CONCLUSION: 1. No evidence of acute intracranial pathology. No masses are identified. Rhys Barker MD Objective Remarks awake and alert, no acute distress anicteric no rales, occasional rhonchi regularr hythm abdomen soft, nontender Right UE- AVF + bruit Right BKA, Left Lower extremity no edema moves all extremities spontaneously A/P Problem List: (1) Acute respiratory failure ICD Code: J96.00 - Acute respiratory failure, unspecified whether with hypoxia or hypercapnia (2) Altered mental status ICD Code: R41.82 - Altered mental status, unspecified Status: Resolved (3) ESRD (end stage renal disease) on dialysis ICD Code: N18.6 - End stage renal disease; Z99.2 - Dependence on renal dialysis Status: Chronic (4) Hyperkalemia ICD Code: E87.5 - Hyperkalemia Status: Acute (5) PAD (peripheral artery disease) ICD Code: I73.9 - Peripheral vascular disease, unspecified Status: Acute Permanent Comment: 10/2015 -Dr. Santillan - PAD - Rt calf/foot - angiogram done. Chronic total occlusion of AT with right AT Ath/[employer] on 09/23/15. Right great toe not healing. Discoloration 4th toe. Dr. Garvey podiatry referral. Ultrasound 3 months for post procedure. If ok then Q6 months us with office visit. Last Edited By: Jude Ron on Oct 20, 2015 15:58 (6) Tobacco abuse ICD Code: Z72.0 - Tobacco use Status: Chronic (7) Hypertension ICD Code: I10 - Essential (primary) hypertension Status: Chronic (8) Diabetes ICD Code: E11.9 - Type 2 diabetes mellitus without complications Status: Chronic (9) Chronic Medical Problems Status: Chronic (10) Peripheral vascular disease ICD Code: I73.9 - Peripheral vascular disease, unspecified Status: Acute (11) Thrombocytopenia ICD Code: D69.6 - Thrombocytopenia, unspecified (12) Diabetic retinopathy ICD Code: E11.319 - Type 2 diabetes mellitus with unspecified diabetic retinopathy without macular edema Status: Chronic (13) Hyponatremia ICD Code: E87.1 - Hypo-osmolality and hyponatremia (14) Depression ICD Code: F32.9 - Major depressive disorder, single episode, unspecified Status: Chronic Assessment and Plan 47 years old female Depression Diabetic retinopathy/blindness History of THC use Remote IV drug use Acetaminophen 650 mg p.o. every 6 hours as needed fever/pain 1 through 10 Sertraline 100 mg p.o. daily for depression resumed CT brain revealed no acute intracranial abnormalities CV: Essential hypertension PVD PAD Dyslipidemia Coronary artery disease Carvedilol 25 mg twice daily lisinopril 20 mg twice daily Initial troponin 0.02. Clopidogrel bisulfate 75 mg p.o. daily Resp: Acute respiratory failure secondary to altered mental status- Improved Tobaccoism- counselled Stridor- resolved Nasal cannula to maintain saturations greater than or equal to 92%- good sats at room air Incentive spirometry while awake Albuterol/ipratropium aerosols every 6 hours with albuterol aerosols every 2 hours. S/P dexamethasone 4 mg IV course Resuming nicotine patch 7 mg daily. MRSA pneumonia: - s. aureus in sputum History of laura-splenic abscess Currently on Aztreonam, metronidazole and vancomycin day #6 Check blood cultures 2 10/08 no growth, sputum MRSA, influenza 10/08 negative ID consult for recommendations Recheck sputum culture C diff colitis - on po Vancomycin Constipation History of splenic abscess/perisplenic Hyperammonia History of hepatitis C Hypoalbuminemia On docusate sodium 100 mg by mouth twice daily at home. Currently on docusate sodium/senna 1 tablet twice daily Lansoprazole 30 mg by tube daily for GI prophylaxis switch to omeprazole 40 mg p.o. daily which likely be switched to pantoprazole 40 mg p.o. daily on ADA 1800cal , Renal diet : Anderson catheter has been placed for accurate I's and O' Endo: Diabetes mellitus On insulin detemir 5 units twice daily. Noted hypoglycemic on admission now hyperglycemic likely steroid-induced Sliding scale insulin with Novulin R with Accu-Cheks every 4 hours to maintain glycemia/moderate regimen TSH 1.09 Renal: End-stage renal disease on hemodialysis Saturday/Saturday/Saturday. Secondary to diabetes, hypertension, AIN secondary to vancomycin History of calciphylaxis on dialysis per nephrology Heme: Chronic apixaban use Normocytic anemia Resume Apixaban @ 2.5 mg twice daily. Noted pork allergy Follow CBC ID: MSK: Right below the knee amputation- stump dry States history left foot injury PT evaluate and treat. states gets around with a wheelchair most of the time Continue cholecalciferol 5000 units p.o. daily FEN: Hyperkalemia/acute -resolved Hyperphosphatemia Hyponatremia Calcium acetate 667 mg p.o. 3 times daily. Access -Utilize peripheral IV. Central line if indicated Prophylaxis -GI -pantoprazole 40 mg p.o. 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
--- NOTE | 2017-10-16 11:04 | PD.CONS ---
History of Present Illness Service Infectious disease Consult Requested By Dr Wili Dominguez Reason for Consult Evaluate patient with MRSA pneumonia Primary Care Physician Unknown Diagnoses: History of Present Illness Patient seen and examined. Records reviewed. Patient is a 47-year-old female, with known end-stage renal disease, goes to hemodialysis Saturday and Saturday, apparently she has missed the last 5 days of her dialysis treatment. Patient stated that she had the flu, and was also having a lot of diarrhea and couldn't get out of bed. Over the last 24 hours she was noted to be very somnolent and not answering her questions. Paramedics were called, and she was found to be obtunded. She was taken to the emergency room. Patient ended up getting intubated. Patient was immediately started on hemodialysis. Sputum culture grew MRSA. Patient has been getting IV vancomycin. Patient initially got extubated, but had stridor, and required reintubation. She was given steroids, and Trileptal extubation was again done and with success. Patient currently feels much better. Denies shortness of breath. Her coughing is better and she brings up some yellowish phlegm. She had her hemodialysis yesterday. She is afebrile. She has problem with nausea, but no vomiting. No abdominal pain. Patient has had frequent bowel movement. It was worse before. C diff (+). Not voiding due to her known renal failure. Infectious disease consultation has been requested to evaluate the patient for treatment of her pneumonia. Review of Systems Constitutional: DENIES: Fever, Chills Eyes: DENIES: Eye pain Ears, nose, mouth, throat: DENIES: Nasal discharge, Oral lesions, Throat pain, Ear Pain Respiratory: COMPLAINS OF: Cough, Sputum production, Shortness of breath, DENIES: Hemoptysis Cardiovascular: DENIES: Chest pain, Syncope, Dyspnea on Exertion Gastrointestinal: COMPLAINS OF: Nausea, DENIES: Abdominal pain, Vomiting, Difficulty Swallowing Musculoskeletal: DENIES: Joint pain Integumentary: COMPLAINS OF: Rash Hematologic/lymphatic: DENIES: Lymphadenopathy Neurologic: DENIES: Localized weakness Psychiatric: DENIES: Hallucinations Past Family Social History Allergies: Coded Allergies: codeine (Verified Allergy, Severe, HYPERACTIVITY &ITCH, 07/11/17) iodine (Verified Allergy, Severe, TOPICAL/ITCH, 07/11/17) potassium iodide (Verified Allergy, Severe, TOPICAL/ITCH, 07/11/17) povidone-iodine (Verified Allergy, Severe, TOPICAL/ITCH, 07/11/17) sodium iodide (Verified Allergy, Severe, TOPICAL/ITCH, 07/11/17) sodium iodide (Verified Allergy, Severe, TOPICAL/ITCH, 07/11/17) iohexol (Verified Allergy, Intermediate, HIVES, 07/11/17) Pork/Porcine Containing Products (Verified Allergy, Unknown, 07/11/17) penicillin G (Verified Allergy, Unknown, 07/11/17) Past Medical History Diabetes mellitus Diabetic retinopathy with clinical blindness End-stage renal disease on hemodialysis Saturday/Saturday/Saturday secondary to hypertension, diabetes and AIN secondary to vancomycin Peripheral vascular disease Peripheral arterial disease Essential hypertension Dyslipidemia Hepatitis C History of calciphylaxis Chronic apixaban use History of splenic abscess - treated with Abx and percutaneous drainage Previous Klensiella and Enterococcal bacteremia - MARILU negative; has has thickened MV History of calciphylaxis Coronary artery disease Depression Constipation Past Surgical History Right below the knee amputation Cholecystectomy IR placement of perisplenic drain T&A Right upper extremity AV fistula Right nephrectomy Dental extraction Right oophorectomy Left lower extremity angioplasty Active Ordered Medications Current Medications Medications (Trade) Dose Ordered Sig/Jen Route Start Time Stop Time Status Last Admin (NS Flush) 2 ml UNSCH PRN IV FLUSH 10/08/17 17:30 10/14/17 12:01 (NS Flush) 2 ml BID IV FLUSH 10/08/17 21:00 10/16/17 08:56 (Zofran Inj) 4 mg Q6H PRN IV PUSH 10/08/17 17:30 10/13/17 21:43 (Albuterol Neb) 2.5 mg Q2HR NEB PRN INH 10/08/17 17:30 10/10/17 17:07 Miscellaneous Information 1 Q361D XX 10/08/17 17:30 (Senokot) 17.2 mg Q12H PRN PO 10/08/17 17:30 (Dulcolax Supp) 10 mg DAILY PRN RECTAL 10/08/17 17:30 (Lactulose Liq) 30 ml DAILY PRN PO 10/08/17 17:30 (Peridex 0.12% Liq) 15 ml BID@08,20 MT 10/08/17 20:00 10/12/17 20:00 (D50w (Vial) Inj) 50 ml UNSCH PRN IV PUSH 10/08/17 17:30 10/09/17 05:41 (Glucagon Inj) 1 mg UNSCH PRN OTHER 10/08/17 17:30 (Eliquis) 2.5 mg BID PO 10/08/17 21:45 10/16/17 08:45 (Zoloft) 100 mg DAILY PO 10/09/17 09:00 10/16/17 08:45 Metronidazole 50 ml @ 100 mls/hr Q8H IV 10/08/17 22:00 10/16/17 06:24 Sodium Chloride 1,000 ml @ 0 mls/hr Q0M PRN OTHER 10/08/17 18:10 10/12/17 11:20 (Heparin Inj) 8,000 units UNSCH PRN IV FLUSH 10/08/17 18:15 Sodium Chloride 1,000 ml @ 200 mls/hr Q5H PRN IV 10/08/17 18:10 Sodium Chloride 1,000 ml @ 0 mls/hr Q0M PRN OTHER 10/08/17 18:10 (Mannitol Inj) 12.5 gm UNSCH PRN IV 10/08/17 18:15 Albumin Human 100 ml @ 60 mls/hr UNSCH PRN IV 10/08/17 18:15 (NS Flush) 5 ml UNSCH PRN IV FLUSH 10/08/17 18:15 (Zofran Inj) 4 mg UNSCH PRN IV PUSH 10/08/17 18:15 (Tylenol) 650 mg UNSCH PRN PO 10/08/17 18:15 (Benadryl) 25 mg UNSCH PRN PO 10/08/17 18:15 10/15/17 18:48 (Nitrostat Sl) 0.4 mg UNSCH PRN SL 10/08/17 18:15 (Catapres) 0.1 mg UNSCH PRN PO 10/08/17 18:15 10/08/17 23:53 (Epogen Inj) 4,000 units UNSCH PRN IV PUSH 10/08/17 18:15 10/15/17 09:59 (Gelfoam 12 Mm/7 Mm Top) 1 foam UNSCH PRN TOP 10/08/17 18:15 10/12/17 11:20 Sodium Thiosulfate 82777 mg/Sterile Water 200 ml @ 150 mls/hr WITH DIALYSIS PRN IV 10/08/17 18:15 10/15/17 12:00 (Tylenol 650 Mg/ 20 ml Liq) 650 mg Q6H PRN PO 10/08/17 18:15 (Bactroban Nasal 2% Oint) Taper BID EACH NARE 10/09/17 09:00 10/05/18 08:59 10/16/17 08:44 (Vitamin D3) 5,000 units DAILY PO 10/09/17 09:00 10/16/17 08:45 (Plavix) 75 mg DAILY PO 10/09/17 09:00 10/16/17 08:45 (Nephrocaps) 1 cap DAILY PO 10/09/17 09:00 10/16/17 08:46 (Apresoline Inj) 10 mg Q1HR PRN IV PUSH 10/09/17 16:30 10/10/17 15:30 (Coreg) 25 mg BID PO 10/10/17 21:00 10/16/17 08:45 (Prinivil) 20 mg BID PO 10/10/17 21:00 10/16/17 08:45 (Trandate Inj) 10 mg Q1HR PRN IV 10/10/17 16:45 10/10/17 16:51 (Nitroglycerin 2% Oint) 2 inch Q6HR PRN TOPICAL 10/10/17 16:30 (Peridex 0.12% Liq) 15 ml BID@08,20 MT 10/10/17 20:00 10/12/17 20:00 Pharmacy Profile Note 0 ml @ 0 mls/hr UNSCH OTHER 10/11/17 19:30 Aztreonam 1000 mg/ Sodium Chloride 100 ml @ 200 mls/hr DAILY IV 10/12/17 09:00 10/16/17 08:44 (Bactroban Nasal 2% Oint) 1 applic Taper BID EACH NARE 10/11/17 21:00 10/07/18 20:59 10/13/17 21:00 (Vancomycin 25 Mg/ml Liq) 250 mg Q6H PO 10/11/17 23:00 10/16/17 06:24 (Duoneb Neb) 1 ampule Q6HR NEB INH 10/12/17 22:00 10/16/17 08:21 (Colace) 100 mg BID PO 10/12/17 21:00 10/16/17 08:45 (Habitrol 7 Mg Patch.24 Hr) 1 patch DAILY T-DERMAL 10/13/17 09:00 10/16/17 08:45 (Protonix) 40 mg DAILY PO 10/13/17 09:00 10/16/17 08:45 Miscellaneous Information 1 HS T-DERMAL 10/12/17 21:00 (NovoLIN R SUPPLEMENTAL SCALE) 1 ACHS AND 3AM SQ 10/12/17 21:00 10/15/17 17:35 (Phoslo) 667 mg TID PO 10/13/17 09:00 10/16/17 08:45 (Levemir Inj) 5 units Q12HR SQ 10/12/17 21:00 10/16/17 08:46 Family History Positive for leukemia, hypertension and diabetes Social History 2-3 puffs of cigarette daily. No alcohol use documented. Positive THC use. Positive remote IV drug use. Lives at home Physical Exam Vital Signs Vital Signs Date Time Temp Pulse Resp B/P (MAP) Pulse Ox O2 Delivery O2 Flow Rate FiO2 10/16/17 08:23 97 Nasal Cannula 2.00 10/16/17 08:00 96.5 73 19 125/59 (81) 91 10/16/17 04:00 98.4 71 17 126/62 (83) 98 10/16/17 00:00 99.2 71 17 134/60 (84) 98 10/15/17 20:26 99 Nasal Cannula 2.00 10/15/17 20:00 98.1 73 17 134/61 (85) 94 10/15/17 16:00 95.5 61 18 186/82 (116) 100 10/15/17 15:40 93 Nasal Cannula 2.00 Physical Exam GENERAL: Patient is a well-nourished, well-developed patient, awake and alert , not in respiratory distress. SKIN: Warm and dry. Has some healing wounds on her face. No embolic lesions HEAD: Atraumatic. Normocephalic. No temporal wasting, or tenderness. EYES: [place] conjunctiva. No petechia or hemorrhage. Pupils equal, round and reactive to light. Extraocular movements full and intact. No scleral icterus. No injection or drainage. EARS, NOSE AND THROAT: Nose without bleeding or purulent nasal discharge. No sinus tenderness. Mucous membranes pink and moist. No oral lesions noted. No exudate. No oral thrush. NECK: Trachea midline. Supple and not tender, no meningeal signs CARDIOVASCULAR: Regular rate and rhythm. No murmurs, rubs or gallops heard RESPIRATORY: Clear to auscultation. Breath sounds equal bilaterally. No rales , wheezing or rhonchi ABDOMEN: Soft, non-tender, nondistended. Bowel sounds present and normoactive. No guarding. No rebound. No organomegaly. EXTREMITIES: No clubbing, cyanosis, or edema. Well healed stump RBK. No calf tenderness. Well perfused and warm. AVF RUE ok NEUROLOGICAL: Awake and alert. Cranial nerves grossly intact. Motor grossly within normal limits. PSYCHIATRIC: Normal affect, calm and cooperative. LINE: No evidence of infection Laboratory Date/Time Source Procedure Growth Status 10/08/17 16:30 Blood Peripheral Aerobic Blood Culture - Final NO GROWTH IN 5 DAYS Complete 10/08/17 16:30 Blood Peripheral Anaerobic Blood Culture - Final NO GROWTH IN 5 DAYS Complete 10/09/17 11:25 Sputum Endotracheal Gram Stain - Final Complete 10/09/17 11:25 Sputum Culture - Final S. Aureus Mrsa Complete Result Diagram: 10/13/17 0610 10/15/17 0850 Imaging RADIOLOGY STUDIES/FILMS REVIEWED Chest X-Ray 10/13/17 0600 Signed Impressions: Service Date/Time: Friday, October 13, 2017 03:36 - CONCLUSION: The lungs are clear. Mark Watson MD Head CT 10/08/17 1616 Signed Impressions: Service Date/Time: Sunday, October 08, 2017 21:52 - CONCLUSION: 1. No evidence of acute intracranial pathology. No masses are identified. Rhys Barker MD Assessment and Plan Assessment and Plan IMPRESSION MRSA PNA, better - clinically and radiographically Respiratory failre, doing well post extubation C diff colitis, improving ESRD on HD S/P Rx splenic abscess last year RECOMMENDATION Stop Azactam and Flagyl Give 2 more doses IV Vanco with HD to complete PNA Rx 14 days po Vancomycin to Rx C diff colitis - end date ordered in [employer] Monitor progress I will follow along with you Thank you for this consultation Discussed Condition With Explained plan to the patient Carrie Sanchez MD Oct 16, 2017 11:04
--- NOTE | 2017-10-16 18:53 | HHI.NPPN ---
Subjective History of Present Illness 47 Year old female with ESRD, non compliance. Objective Data Data Vital Signs Date Time Temp Pulse Resp B/P (MAP) Pulse Ox O2 Delivery O2 Flow Rate FiO2 10/16/17 16:00 98.5 76 18 181/79 (113) 90 10/16/17 12:00 98.2 76 19 150/67 (94) 90 10/16/17 08:23 97 Nasal Cannula 2.00 10/16/17 08:00 96.5 73 19 125/59 (81) 91 10/16/17 04:00 98.4 71 17 126/62 (83) 98 10/16/17 00:00 99.2 71 17 134/60 (84) 98 10/15/17 20:26 99 Nasal Cannula 2.00 10/15/17 20:00 98.1 73 17 134/61 (85) 94 -: 10/13/17 0610 10/15/17 0850 Physical Exam General Appearance: Well Developed Neck Neck Exam: Neck Supple Pulmonary Resp Exam: Clear Bilaterally, Breath Sounds Equal Cardiology CV Exam: Regular, Normal Sinus Rhythm Gastrointestinal/Abdomen GI Exam: Soft, Non-Tender, Bowel Sounds Present Extremeties Extremities Exam: Trace Edema Extremeties Remarks ischemic Lt foot, rt BKA Assessment/Plan Problem List: (1) ESRD (end stage renal disease) on dialysis ICD Codes: N18.6 - End stage renal disease; Z99.2 - Dependence on renal dialysis Status: Chronic Plan: Patient on hemodialysis TTS last dialysis UF [address] 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 DC plans MRSA iso due to sputum pos on Vanco IV and PO (2) Hyperkalemia ICD Codes: E87.5 - Hyperkalemia Status: Acute Plan: resolved with hemodialysis (3) Diabetes ICD Codes: E11.9 - Type 2 diabetes mellitus without complications Status: Chronic Plan: Continue to monitor (4) Calciphylaxis ICD Codes: E83.59 - Other disorders of calcium metabolism Status: Acute Plan: She was getting sodium Thiosulfate and this will be continued Problem Qualifiers (1) Diabetes: Qualified Codes: E11.59 - Type 2 diabetes mellitus with other circulatory complications; Z79.4 - [facility] (current) use of insulin Gerri Gilbert MD Oct 16, 2017 18:53
[2017-10-16] MEDS: REMOVE OLD PATCH T-DERMAL SCH (21:00)
[2017-10-16] MEDS: diphenhydrAMINE HCL 25 MG CAP PO PRN (22:38)
[2017-10-16] MEDS ORDERED: LORazepam 0.5 MG TAB PO ONE (23:30)
[2017-10-17] VITALS (11 sets, daily range): BP systolic 127–231; BP diastolic 61–102; PULSE 71–85; RESP 16–20; TEMP 96.5–98.7; O2SAT 92–96
[2017-10-17] MEDS: cloNIDine HCL 0.1 MG TAB PO PRN ×2 (02:21→21:35)
[2017-10-17] MEDS: VANCOMYCIN 25 MG/ML SOLN 100 ML BOTTLE PO SCH ×4 (05:56→20:50)
[2017-10-17] MEDS: INSULIN NovoLIN REGULAR SUPPLEMENTAL SCALE SQ SCH ×5 (05:59→20:41)
[2017-10-17] MEDS: CHLORHEXIDINE 0.12% (ORAL KIT) 15 ML CUP MT SCH ×4 (07:53→20:00)
[2017-10-17] MEDS ORDERED: VANCOMYCIN INJ 1,000 MG in SODIUM CHLOR 0.9% 250 ML INJ 250 ML IV SCH (08:00)
[2017-10-17] MEDS: LISINOPRIL 20 MG TAB PO SCH ×3 (09:00→20:38)
[2017-10-17] MEDS: DOCUSATE SODIUM 100 MG CAP PO SCH ×2 (09:00→20:39)
[2017-10-17] MEDS: CARVEDILOL 12.5 MG TAB PO SCH ×3 (09:00→20:38)
[2017-10-17] MEDS: MUPIROCIN 2% OINT 1 APPLIC/GM SYR EACH NARE SCH ×4 (09:00→20:23)
[2017-10-17] MEDS: CALCIUM ACETATE 667 MG CAP PO SCH ×3 (09:00→18:08)
[2017-10-17] MEDS: APIXABAN 2.5 MG TABLET PO SCH ×3 (09:00→20:38)
--- NOTE | 2017-10-17 09:04 | HHI.PR ---
Subjective Remarks going for hemodialysis this am has some elevated BPs last evening this am good Objective Vitals Vital Signs Date Time Temp Pulse Resp B/P (MAP) Pulse Ox O2 Delivery O2 Flow Rate FiO2 10/17/17 08:00 98.4 75 18 137/61 (86) 94 10/17/17 04:00 96.5 80 20 127/77 (94) 93 10/17/17 02:21 231/102 (145) 10/17/17 02:01 85 10/17/17 00:00 97.7 82 20 206/78 (120) 92 10/16/17 22:25 95 10/16/17 20:00 99.2 88 20 130/61 (84) 94 10/16/17 16:00 98.5 76 18 181/79 (113) 90 10/16/17 12:00 98.2 76 19 150/67 (94) 90 I/O 10/16/17 10/16/17 10/16/17 10/17/17 10/17/17 10/17/17 07:00 15:00 23:00 07:00 15:00 23:00 Intake Total 240 ml 100 ml 444 ml 240 ml Balance 240 ml 100 ml 444 ml 240 ml Intake Oral 240 ml 444 ml 240 ml IV Total 100 ml # Voids 0 0 # Bowel Movements 1 1 0 Result Diagram: 10/13/17 0610 10/15/17 0850 Imaging Last Impressions Chest X-Ray 10/13/17 0600 Signed Impressions: Service Date/Time: Friday, October 13, 2017 03:36 - CONCLUSION: The lungs are clear. Mark Watson MD Head CT 10/08/17 1616 Signed Impressions: Service Date/Time: Sunday, October 08, 2017 21:52 - CONCLUSION: 1. No evidence of acute intracranial pathology. No masses are identified. Rhys Barker MD Objective Remarks awake and alert, no acute distress anicteric no rales,no wheezes regular rhythm abdomen soft, nontender Right UE- AVF + bruit Right BKA, Left Lower extremity no edema moves all extremities spontaneously A/P Problem List: (1) Acute respiratory failure ICD Code: J96.00 - Acute respiratory failure, unspecified whether with hypoxia or hypercapnia (2) Altered mental status ICD Code: R41.82 - Altered mental status, unspecified Status: Resolved (3) ESRD (end stage renal disease) on dialysis ICD Code: N18.6 - End stage renal disease; Z99.2 - Dependence on renal dialysis Status: Chronic (4) Hyperkalemia ICD Code: E87.5 - Hyperkalemia Status: Acute (5) PAD (peripheral artery disease) ICD Code: I73.9 - Peripheral vascular disease, unspecified Status: Acute Permanent Comment: 10/2015 -Dr. Santillan - PAD - Rt calf/foot - angiogram done. Chronic total occlusion of AT with right AT [facility] on 09/23/15. Right great toe not healing. Discoloration 4th toe. Dr. Garvey podiatry referral. Ultrasound 3 months for post procedure. If ok then Q6 months us with office visit. Last Edited By: Jude Ron on Oct 20, 2015 15:58 (6) Tobacco abuse ICD Code: Z72.0 - Tobacco use Status: Chronic (7) Hypertension ICD Code: I10 - Essential (primary) hypertension Status: Chronic (8) Diabetes ICD Code: E11.9 - Type 2 diabetes mellitus without complications Status: Chronic (9) Chronic Medical Problems Status: Chronic (10) Peripheral vascular disease ICD Code: I73.9 - Peripheral vascular disease, unspecified Status: Acute (11) Thrombocytopenia ICD Code: D69.6 - Thrombocytopenia, unspecified (12) Diabetic retinopathy ICD Code: E11.319 - Type 2 diabetes mellitus with unspecified diabetic retinopathy without macular edema Status: Chronic (13) Hyponatremia ICD Code: E87.1 - Hypo-osmolality and hyponatremia (14) Depression ICD Code: F32.9 - Major depressive disorder, single episode, unspecified Status: Chronic Assessment and Plan 47 years old female Depression Diabetic retinopathy/blindness History of THC use Remote IV drug use Acetaminophen 650 mg p.o. every 6 hours as needed fever/pain 1 through 10 Sertraline 100 mg p.o. daily for depression resumed CT brain revealed no acute intracranial abnormalities Essential hypertension PVD PAD Dyslipidemia Coronary artery disease Monitor and adjust - meds Carvedilol 25 mg twice daily lisinopril 20 mg twice daily Clopidogrel bisulfate 75 mg p.o. daily Resp: Acute respiratory failure secondary to altered mental status- resolved Tobaccoism Stridor Nasal cannula to maintain saturations greater than or equal to 92% Incentive spirometry while awake Albuterol/ipratropium aerosols every 6 hours with albuterol aerosols every 2 hours. S/P dexamethasone 4 mg IV every 6 hours x 2 days completed Resuming nicotine patch 7 mg daily. GI: Constipation History of splenic abscess/perisplenic Hyperammonia History of hepatitis C Hypoalbuminemia On docusate sodium 100 mg by mouth twice daily at home. Currently on docusate sodium/senna 1 tablet twice daily Lansoprazole 30 mg by tube daily for GI prophylaxis switch to omeprazole 40 mg p.o. daily which likely be switched to pantoprazole 40 mg p.o. daily on ADA 1800cal , Renal diet Diabetes mellitus good readings . monitor and adjust On insulin detemir 5 units twice daily. Noted hypoglycemic on admission now hyperglycemic likely steroid-induced Sliding scale insulin with Novulin R with Accu-Cheks every 4 hours to maintain glycemia/moderate regimen TSH 1.09 Renal: End-stage renal disease on hemodialysis Saturday/Saturday/Saturday. Secondary to diabetes, hypertension, AIN secondary to vancomycin? History of calciphylaxis dialysis per nephrology Heme: Chronic apixaban use Normocytic anemia continue Apixaban 2.5 mg twice daily. Noted pork allergy Follow CBC daily. Monitor trends ID: History of laura-splenic abscess MRSA pneumonia C diff colitis Document has been on levofloxacin 250 mg daily and clindamycin 300 mg every 6 hours DC Aztreonam, metronidazole Appreciated Dr Sanchez- recommendation Vancomycin IV x 2 more doses with HD po Vancomycin- stop date in chart till 10/24 Check blood cultures 2 10/08 no growth, sputum MRSA, influenza 10/08 negative MSK: Right below the knee amputation- stump dry States history left foot injury PT evaluate and treat. states gets around with a wheelchair most of the time Continue cholecalciferol 5000 units p.o. daily FEN: Hyperkalemia/acute -resolved Hyperphosphatemia Hyponatremia Calcium acetate 667 mg p.o. 3 times daily. Access -Utilize peripheral IV. Central line if indicated Prophylaxis -GI -pantoprazole 40 mg p.o. daily -DVT -SCDs left lower extremity/apixaban Activity- out of bed to chair for all meal CM consult for DC planning Problem Qualifiers (1) Acute respiratory failure: Qualified Codes: J96.01 - Acute respiratory failure with hypoxia (2) Altered mental status: Qualified Codes: R41.82 - Altered mental status, unspecified (3) Hypertension: Qualified Codes: I10 - Essential (primary) hypertension (4) Diabetes: Qualified Codes: E11.59 - Type 2 diabetes mellitus with other circulatory complications; Z79.4 - intermediate frame tender (current) use of insulin (5) Diabetic retinopathy: Qualified Codes: E10.319 - Type 1 diabetes mellitus with unspecified diabetic retinopathy without macular edema (6) Depression: Qualified Codes: F33.9 - Major depressive disorder, recurrent, unspecified Jagdish Lozano MD Oct 17, 2017 09:04
--- NOTE | 2017-10-17 10:09 | HHI.NPPN ---
Subjective History of Present Illness 47 Year old female with ESRD, non compliance. Objective Data Data Vital Signs Date Time Temp Pulse Resp B/P (MAP) Pulse Ox O2 Delivery O2 Flow Rate FiO2 10/17/17 09:20 94 10/17/17 08:00 98.4 75 18 137/61 (86) 94 10/17/17 04:00 96.5 80 20 127/77 (94) 93 10/17/17 02:21 231/102 (145) 10/17/17 02:01 85 10/17/17 00:00 97.7 82 20 206/78 (120) 92 10/16/17 22:25 95 10/16/17 20:00 99.2 88 20 130/61 (84) 94 10/16/17 16:00 98.5 76 18 181/79 (113) 90 10/16/17 12:00 98.2 76 19 150/67 (94) 90 -: 10/13/17 0610 10/15/17 0850 Physical Exam General Appearance: Well Developed Neck Neck Exam: Neck Supple Pulmonary Resp Exam: Clear Bilaterally, Breath Sounds Equal Cardiology CV Exam: Regular, Normal Sinus Rhythm Gastrointestinal/Abdomen GI Exam: Soft, Non-Tender, Bowel Sounds Present Extremeties Extremities Exam: Trace Edema Extremeties Remarks ischemic Lt foot, rt BKA Assessment/Plan Problem List: (1) ESRD (end stage renal disease) on dialysis ICD Codes: N18.6 - End stage renal disease; Z99.2 - Dependence on renal dialysis Status: Chronic Plan: Patient on hemodialysis TTS seen during dialysis UF [address] 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 DC plans MRSA iso due to sputum pos on Vanco IV and PO BP labile better now (2) Hyperkalemia ICD Codes: E87.5 - Hyperkalemia Status: Acute Plan: resolved with hemodialysis (3) Diabetes ICD Codes: E11.9 - Type 2 diabetes mellitus without complications Status: Chronic Plan: Continue to monitor (4) Calciphylaxis ICD Codes: E83.59 - Other disorders of calcium metabolism Status: Acute Plan: She was getting sodium Thiosulfate and this will be continued Problem Qualifiers (1) Diabetes: Qualified Codes: E11.59 - Type 2 diabetes mellitus with other circulatory complications; Z79.4 - group home (current) use of insulin Gerri Gilbert MD Oct 17, 2017 10:09
[2017-10-17] MEDS: SODIUM THIOSULFATE INJ 25,000 MG in WATER STERILE FOR INJ 100 ML IV PRN (12:19)
[2017-10-17] MEDS: EPOETIN ALFA 10,000 UNITS/ML VIAL IV PUSH PRN (12:19)
[2017-10-17] MEDS: CLOPIDOGREL 75 MG TAB PO SCH (13:15)
[2017-10-17] MEDS: VITAMIN B CMPLX/VITC/FOLIC AC CAP PO SCH (13:15)
[2017-10-17] MEDS: SERTRALINE HCL 100 MG TAB PO SCH (13:15)
[2017-10-17] MEDS: INSULIN DETEMIR 100 UNITS/ML VIAL SQ SCH ×2 (13:16→20:40)
[2017-10-17] MEDS: PANTOPRAZOLE SOD 40 MG DELAYED RELEASE TAB PO SCH (13:16)
[2017-10-17] MEDS: CHOLECALCIFEROL (VIT D3) 5000 UNIT CAP PO SCH (13:16)
[2017-10-17] MEDS: NICOTINE 7 MG/24 HR PATCH T-DERMAL SCH (13:17)
[2017-10-17] MEDS: SODIUM CHLORIDE 0.9% FLUSH 10 ML FLUSH IV FLUSH SCH ×2 (13:17→20:45)
--- NOTE | 2017-10-17 13:20 | HHI.IDPN ---
Subjective Subjective Remarks Patient is a 47-year-old female, with known end-stage renal disease, goes to hemodialysis Saturday and Saturday, apparently she has missed the last 5 days of her dialysis treatment. Patient stated that she had the flu, and was also having a lot of diarrhea and couldn't get out of bed. Over the last 24 hours she was noted to be very somnolent and not answering her questions. Paramedics were called, and she was found to be obtunded. She was taken to the emergency room. Patient ended up getting intubated. Patient was immediately started on hemodialysis. Sputum culture grew MRSA. Patient has been getting IV vancomycin. Patient initially got extubated, but had stridor, and required reintubation. She was given steroids, and Trileptal extubation was again done and with success. Patient currently feels much better. Denies shortness of breath. Her coughing is better and she brings up some yellowish phlegm. She had her hemodialysis yesterday. She is afebrile. She has problem with nausea, but no vomiting. No abdominal pain. Patient has had frequent bowel movement. It was worse before. C diff (+). Not voiding due to her known renal failure. Infectious disease consultation has been requested to evaluate the patient for treatment of her pneumonia. Notes reviewed Temps ok Stools better SOB better Antibiotics Current Medications IV Vanco PO vanco Medications (Trade) Dose Ordered Sig/Jen Route Start Time Stop Time Status Last Admin (NS Flush) 2 ml UNSCH PRN IV FLUSH 10/08/17 17:30 10/14/17 12:01 (NS Flush) 2 ml BID IV FLUSH 10/08/17 21:00 10/16/17 22:43 (Zofran Inj) 4 mg Q6H PRN IV PUSH 10/08/17 17:30 10/13/17 21:43 (Albuterol Neb) 2.5 mg Q2HR NEB PRN INH 10/08/17 17:30 10/10/17 17:07 Miscellaneous Information 1 Q361D XX 10/08/17 17:30 (Senokot) 17.2 mg Q12H PRN PO 10/08/17 17:30 (Dulcolax Supp) 10 mg DAILY PRN RECTAL 10/08/17 17:30 (Lactulose Liq) 30 ml DAILY PRN PO 10/08/17 17:30 (Peridex 0.12% Liq) 15 ml BID@08,20 MT 10/08/17 20:00 10/12/17 20:00 (D50w (Vial) Inj) 50 ml UNSCH PRN IV PUSH 10/08/17 17:30 10/09/17 05:41 (Glucagon Inj) 1 mg UNSCH PRN OTHER 10/08/17 17:30 (Eliquis) 2.5 mg BID PO 10/08/17 21:45 10/16/17 22:39 (Zoloft) 100 mg DAILY PO 10/09/17 09:00 10/16/17 08:45 Sodium Chloride 1,000 ml @ 0 mls/hr Q0M PRN OTHER 10/08/17 18:10 10/12/17 11:20 (Heparin Inj) 8,000 units UNSCH PRN IV FLUSH 10/08/17 18:15 Sodium Chloride 1,000 ml @ 200 mls/hr Q5H PRN IV 10/08/17 18:10 Sodium Chloride 1,000 ml @ 0 mls/hr Q0M PRN OTHER 10/08/17 18:10 (Mannitol Inj) 12.5 gm UNSCH PRN IV 10/08/17 18:15 Albumin Human 100 ml @ 60 mls/hr UNSCH PRN IV 10/08/17 18:15 (NS Flush) 5 ml UNSCH PRN IV FLUSH 10/08/17 18:15 (Zofran Inj) 4 mg UNSCH PRN IV PUSH 10/08/17 18:15 (Tylenol) 650 mg UNSCH PRN PO 10/08/17 18:15 (Benadryl) 25 mg UNSCH PRN PO 10/08/17 18:15 10/16/17 22:38 (Nitrostat Sl) 0.4 mg UNSCH PRN SL 10/08/17 18:15 (Catapres) 0.1 mg UNSCH PRN PO 10/08/17 18:15 10/17/17 02:21 (Epogen Inj) 4,000 units UNSCH PRN IV PUSH 10/08/17 18:15 10/17/17 12:19 (Gelfoam 12 Mm/7 Mm Top) 1 foam UNSCH PRN TOP 10/08/17 18:15 10/12/17 11:20 Sodium Thiosulfate 33780 mg/Sterile Water 200 ml @ 150 mls/hr WITH DIALYSIS PRN IV 10/08/17 18:15 10/17/17 12:19 (Tylenol 650 Mg/ 20 ml Liq) 650 mg Q6H PRN PO 10/08/17 18:15 (Bactroban Nasal 2% Oint) Taper BID EACH NARE 10/09/17 09:00 10/05/18 08:59 10/16/17 08:44 (Vitamin D3) 5,000 units DAILY PO 10/09/17 09:00 10/16/17 08:45 (Plavix) 75 mg DAILY PO 10/09/17 09:00 10/16/17 08:45 (Nephrocaps) 1 cap DAILY PO 10/09/17 09:00 10/16/17 08:46 (Apresoline Inj) 10 mg Q1HR PRN IV PUSH 10/09/17 16:30 10/10/17 15:30 (Coreg) 25 mg BID PO 10/10/17 21:00 10/16/17 22:38 (Prinivil) 20 mg BID PO 10/10/17 21:00 10/16/17 22:39 (Trandate Inj) 10 mg Q1HR PRN IV 10/10/17 16:45 10/10/17 16:51 (Nitroglycerin 2% Oint) 2 inch Q6HR PRN TOPICAL 10/10/17 16:30 (Peridex 0.12% Liq) 15 ml BID@08,20 MT 10/10/17 20:00 10/12/17 20:00 (Bactroban Nasal 2% Oint) Taper BID EACH NARE 10/11/17 21:00 10/07/18 20:59 10/13/17 21:00 (Vancomycin 25 Mg/ml Liq) 250 mg Q6H PO 10/11/17 23:00 10/24/17 12:00 10/17/17 05:56 (Colace) 100 mg BID PO 10/12/17 21:00 10/16/17 08:45 (Habitrol 7 Mg Patch.24 Hr) 1 patch DAILY T-DERMAL 10/13/17 09:00 10/16/17 08:45 (Protonix) 40 mg DAILY PO 10/13/17 09:00 10/16/17 08:45 Miscellaneous Information 1 HS T-DERMAL 10/12/17 21:00 10/16/17 21:00 (NovoLIN R SUPPLEMENTAL SCALE) 1 ACHS AND 3AM SQ 10/12/17 21:00 10/17/17 05:59 (Phoslo) 667 mg TID PO 10/13/17 09:00 10/16/17 17:06 (Levemir Inj) 5 units Q12HR SQ 10/12/17 21:00 10/16/17 22:40 Vancomycin HCl 1000 mg/Sodium Chloride 250 ml @ 250 mls/hr WITH DIALYSIS IV 10/17/17 08:00 10/18/17 08:59 Past Medical History Diabetes mellitus Diabetic retinopathy with clinical blindness End-stage renal disease on hemodialysis Saturday/Saturday/Saturday secondary to hypertension, diabetes and AIN secondary to vancomycin Peripheral vascular disease Peripheral arterial disease Essential hypertension Dyslipidemia Hepatitis C History of calciphylaxis Chronic apixaban use History of splenic abscess - treated with Abx and percutaneous drainage Previous Klensiella and Enterococcal bacteremia - MARILU negative; has has thickened MV History of calciphylaxis Coronary artery disease Depression Constipation Past Surgical History Right below the knee amputation Cholecystectomy IR placement of perisplenic drain T&A Right upper extremity AV fistula Right nephrectomy Dental extraction Right oophorectomy Left lower extremity angioplasty Allergies: Coded Allergies: codeine (Verified Allergy, Severe, HYPERACTIVITY &ITCH, 07/11/17) iodine (Verified Allergy, Severe, TOPICAL/ITCH, 07/11/17) potassium iodide (Verified Allergy, Severe, TOPICAL/ITCH, 07/11/17) povidone-iodine (Verified Allergy, Severe, TOPICAL/ITCH, 07/11/17) sodium iodide (Verified Allergy, Severe, TOPICAL/ITCH, 07/11/17) sodium iodide (Verified Allergy, Severe, TOPICAL/ITCH, 07/11/17) iohexol (Verified Allergy, Intermediate, HIVES, 07/11/17) Pork/Porcine Containing Products (Verified Allergy, Unknown, 07/11/17) penicillin G (Verified Allergy, Unknown, 07/11/17) Objective . Vital Signs Date Time Temp Pulse Resp B/P (MAP) Pulse Ox O2 Delivery O2 Flow Rate FiO2 10/17/17 13:08 98.7 71 16 185/76 (112) 96 154/65 (94) 10/17/17 09:20 94 10/17/17 08:00 98.4 75 18 137/61 (86) 94 10/17/17 04:00 96.5 80 20 127/77 (94) 93 10/17/17 02:21 231/102 (145) 10/17/17 02:01 85 10/17/17 00:00 97.7 82 20 206/78 (120) 92 10/16/17 22:25 95 10/16/17 20:00 99.2 88 20 130/61 (84) 94 10/16/17 16:00 98.5 76 18 181/79 (113) 90 10/17/17 10/17/17 10/18/17 15:00 23:00 07:00 Output Total 4000 ml Balance -4000 ml Hemodialysis 4000 ml Imaging Last Impressions Chest X-Ray 10/13/17 0600 Signed Impressions: Service Date/Time: Friday, October 13, 2017 03:36 - CONCLUSION: The lungs are clear. Mark Watson MD Head CT 10/08/17 1616 Signed Impressions: Service Date/Time: Sunday, October 08, 2017 21:52 - CONCLUSION: 1. No evidence of acute intracranial pathology. No masses are identified. Rhys Barker MD Physical Exam GENERAL: awake and alert, not in respiratory distress. SKIN: Warm and dry. Has some healing wounds on her face. No embolic lesions HEAD: Atraumatic. Normocephalic. No temporal wasting, or tenderness. EYES: [place] conjunctiva. No petechia or hemorrhage. Pupils equal, round and reactive to light. Extraocular movements full and intact. No scleral icterus. No injection or drainage. EARS, NOSE AND THROAT: Nose without bleeding or purulent nasal discharge. No sinus tenderness. Mucous membranes pink and moist. No oral lesions noted. No exudate. No oral thrush. NECK: Trachea midline. Supple and not tender, no meningeal signs CARDIOVASCULAR: Regular rate and rhythm. No murmurs, rubs or gallops heard RESPIRATORY: Clear to auscultation. Breath sounds equal bilaterally. No rales , wheezing or rhonchi ABDOMEN: Soft, non-tender, nondistended. Bowel sounds present and normoactive. No guarding. No rebound. No organomegaly. EXTREMITIES: No clubbing, cyanosis, or edema. Well healed stump RBK. No calf tenderness. Well perfused and warm. AVF RUE ok NEUROLOGICAL: Awake and alert. Cranial nerves grossly intact. Motor grossly within normal limits. PSYCHIATRIC: Normal affect, calm and cooperative. LINE: No evidence of infection Assessment & Plan Remarks IMPRESSION MRSA PNA, better - clinically and radiographically Respiratory failre, doing well post extubation C diff colitis, improving ESRD on HD S/P Rx splenic abscess last year RECOMMENDATION Give 2 more doses IV Vanco with HD to complete PNA Rx 14 days po Vancomycin to Rx C diff colitis - end date ordered in [facility] Monitor progress Clinically doing well from ID standpoint Carrie Sanchez MD Oct 17, 2017 13:20
[2017-10-17] MEDS: REMOVE OLD PATCH T-DERMAL SCH (20:50)
[2017-10-18] VITALS (8 sets, daily range): BP systolic 139–194; BP diastolic 63–88; PULSE 65–80; RESP 15–20; TEMP 97–98.7; O2SAT 93–98
[2017-10-18] MEDS: INSULIN NovoLIN REGULAR SUPPLEMENTAL SCALE SQ SCH ×5 (03:00→22:28)
[2017-10-18] MEDS: VANCOMYCIN 25 MG/ML SOLN 100 ML BOTTLE PO SCH ×4 (04:45→22:29)
[2017-10-18] MEDS: CHLORHEXIDINE 0.12% (ORAL KIT) 15 ML CUP MT SCH ×4 (08:00→20:00)
[2017-10-18] MEDS: CALCIUM ACETATE 667 MG CAP PO SCH ×3 (09:00→17:42)
[2017-10-18] MEDS: MUPIROCIN 2% OINT 1 APPLIC/GM SYR EACH NARE SCH ×4 (09:00→21:00)
[2017-10-18] MEDS: DOCUSATE SODIUM 100 MG CAP PO SCH ×2 (09:00→21:00)
[2017-10-18] MEDS: INSULIN DETEMIR 100 UNITS/ML VIAL SQ SCH ×2 (09:11→22:27)
[2017-10-18] MEDS: PANTOPRAZOLE SOD 40 MG DELAYED RELEASE TAB PO SCH (09:11)
[2017-10-18] MEDS: LISINOPRIL 20 MG TAB PO SCH ×2 (09:11→22:24)
[2017-10-18] MEDS: CARVEDILOL 12.5 MG TAB PO SCH ×2 (09:11→22:24)
[2017-10-18] MEDS: APIXABAN 2.5 MG TABLET PO SCH ×2 (09:11→22:25)
[2017-10-18] MEDS: CHOLECALCIFEROL (VIT D3) 5000 UNIT CAP PO SCH (09:11)
[2017-10-18] MEDS: VITAMIN B CMPLX/VITC/FOLIC AC CAP PO SCH (09:11)
[2017-10-18] MEDS: CLOPIDOGREL 75 MG TAB PO SCH (09:12)
[2017-10-18] MEDS: SERTRALINE HCL 100 MG TAB PO SCH (09:12)
[2017-10-18] MEDS: NICOTINE 7 MG/24 HR PATCH T-DERMAL SCH (09:13)
--- NOTE | 2017-10-18 09:15 | HHI.PR ---
Subjective Remarks no complains except that she did not sleep well last night no nauseas or vomiting, no chest pains or shortness of breath pleasant and childlike Objective Vitals Vital Signs Date Time Temp Pulse Resp B/P (MAP) Pulse Ox O2 Delivery O2 Flow Rate FiO2 10/18/17 08:00 98.3 68 17 145/63 (90) 95 10/18/17 04:00 97.0 65 20 149/63 (91) 95 10/18/17 00:08 71 10/18/17 00:00 98.2 73 20 194/77 (116) 94 10/17/17 21:31 73 226/73 (123) 10/17/17 20:00 98.4 76 20 209/88 (128) 96 10/17/17 19:33 95 10/17/17 16:00 98.2 72 17 176/77 (110) 95 10/17/17 13:08 98.7 71 16 185/76 (112) 96 154/65 (94) 10/17/17 09:20 94 I/O 10/17/17 10/17/17 10/17/17 10/18/17 10/18/17 10/18/17 07:00 15:00 23:00 07:00 15:00 23:00 Intake Total 240 ml 220 ml 360 ml Output Total 4000 ml Balance 240 ml -4000 ml 220 ml 360 ml Intake Oral 240 ml 220 ml 360 ml Hemodialysis 4000 ml # Voids 0 0 # Bowel Movements 0 1 1 Result Diagram: 10/15/17 0850 Imaging Last Impressions Chest X-Ray 10/13/17 0600 Signed Impressions: Service Date/Time: Friday, October 13, 2017 03:36 - CONCLUSION: The lungs are clear. Mark Watson MD Head CT 10/08/17 1616 Signed Impressions: Service Date/Time: Sunday, October 08, 2017 21:52 - CONCLUSION: 1. No evidence of acute intracranial pathology. No masses are identified. Rhys Barker MD Objective Remarks awake and alert, no acute distress anicteric no rales,no wheezes regular rhythm abdomen soft, nontender Right UE- AVF + bruit Right BKA, Left Lower extremity no edema moves all extremities spontaneously A/P Problem List: (1) Acute respiratory failure ICD Code: J96.00 - Acute respiratory failure, unspecified whether with hypoxia or hypercapnia (2) Altered mental status ICD Code: R41.82 - Altered mental status, unspecified Status: Resolved (3) ESRD (end stage renal disease) on dialysis ICD Code: N18.6 - End stage renal disease; Z99.2 - Dependence on renal dialysis Status: Chronic (4) Hyperkalemia ICD Code: E87.5 - Hyperkalemia Status: Acute (5) PAD (peripheral artery disease) ICD Code: I73.9 - Peripheral vascular disease, unspecified Status: Acute Permanent Comment: 10/2015 -Dr. Santillan - PAD - Rt calf/foot - angiogram done. Chronic total occlusion of AT with right AT Ath/[employer] OPER[employer] HEL[employer] on 09/23/15. Right great toe not healing. Discoloration 4th toe. Dr. Garvey podiatry referral. Ultrasound 3 months for post procedure. If ok then Q6 months us with office visit. Last Edited By: Jude Ron on Oct 20, 2015 15:58 (6) Tobacco abuse ICD Code: Z72.0 - Tobacco use Status: Chronic (7) Hypertension ICD Code: I10 - Essential (primary) hypertension Status: Chronic (8) Diabetes ICD Code: E11.9 - Type 2 diabetes mellitus without complications Status: Chronic (9) Chronic Medical Problems Status: Chronic (10) Peripheral vascular disease ICD Code: I73.9 - Peripheral vascular disease, unspecified Status: Acute (11) Thrombocytopenia ICD Code: D69.6 - Thrombocytopenia, unspecified (12) Diabetic retinopathy ICD Code: E11.319 - Type 2 diabetes mellitus with unspecified diabetic retinopathy without macular edema Status: Chronic (13) Hyponatremia ICD Code: E87.1 - Hypo-osmolality and hyponatremia (14) Depression ICD Code: F32.9 - Major depressive disorder, single episode, unspecified Status: Chronic Assessment and Plan 47 years old female Depression- pleasnt and interactive Diabetic retinopathy/blindness History of THC use Remote IV drug use Acetaminophen 650 mg p.o. every 6 hours as needed fever/pain 1 through 10 Sertraline 100 mg p.o. daily for depression resumed CT brain revealed no acute intracranial abnormalities Essential hypertension PVD PAD Dyslipidemia Coronary artery disease better readings this am- labile Monitor and adjust - meds Carvedilol 25 mg twice daily lisinopril 20 mg twice daily Clopidogrel bisulfate 75 mg p.o. daily Resp: Acute respiratory failure secondary to altered mental status- resolved Tobaccoism Stridor Nasal cannula to maintain saturations greater than or equal to 92% Incentive spirometry while awake Albuterol/ipratropium aerosols every 6 hours with albuterol aerosols every 2 hours. S/P dexamethasone 4 mg IV every 6 hours x 2 days completed Resuming nicotine patch 7 mg daily. GI: Constipation History of splenic abscess/perisplenic Hyperammonia History of hepatitis C Hypoalbuminemia On docusate sodium 100 mg by mouth twice daily at home. Currently on docusate sodium/senna 1 tablet twice daily Lansoprazole 30 mg by tube daily for GI prophylaxis switch to omeprazole 40 mg p.o. daily which likely be switched to pantoprazole 40 mg p.o. daily on ADA 1800cal , Renal diet Diabetes mellitus good readings . monitor and adjust On insulin detemir 5 units twice daily. Noted hypoglycemic on admission now hyperglycemic likely steroid-induced- improved- good readings Sliding scale insulin with Novulin R with Accu-Cheks every 4 hours to maintain glycemia/moderate regimen TSH 1.09 Renal: End-stage renal disease on hemodialysis Saturday/Saturday/Saturday. Secondary to diabetes, hypertension, AIN secondary to vancomycin? History of calciphylaxis dialysis per nephrology- // Heme: Chronic apixaban use Normocytic anemia continue Apixaban 2.5 mg twice daily. Noted pork allergy Follow CBC daily. Monitor trends ID: History of laura-splenic abscess MRSA pneumonia C diff colitis Document has been on levofloxacin 250 mg daily and clindamycin 300 mg every 6 hours DC Aztreonam, metronidazole Appreciated Dr Sanchez- recommendation Vancomycin IV x 2 more doses with HD- last dose tomorrow po Vancomycin- stop date in chart till 10/24 Check blood cultures 2 10/08 no growth, sputum MRSA, influenza 10/08 negative MSK: Right below the knee amputation- stump dry States history left foot injury PT evaluate and treat. states gets around with a wheelchair most of the time Continue cholecalciferol 5000 units p.o. daily FEN: Hyperkalemia/acute -resolved Hyperphosphatemia Hyponatremia Calcium acetate 667 mg p.o. 3 times daily. Access -Utilize peripheral IV. Central line if indicated Prophylaxis -GI -pantoprazole 40 mg p.o. daily -DVT -SCDs left lower extremity/apixaban Activity- out of bed to chair for all meal CM consult for DC planning- DC home todmorrow after HD d/w CM to assist with DC needs Problem Qualifiers (1) Acute respiratory failure: Qualified Codes: J96.01 - Acute respiratory failure with hypoxia (2) Altered mental status: Qualified Codes: R41.82 - Altered mental status, unspecified (3) Hypertension: Qualified Codes: I10 - Essential (primary) hypertension (4) Diabetes: Qualified Codes: E11.59 - Type 2 diabetes mellitus with other circulatory complications; Z79.4 - care home (current) use of insulin (5) Diabetic retinopathy: Qualified Codes: E10.319 - Type 1 diabetes mellitus with unspecified diabetic retinopathy without macular edema (6) Depression: Qualified Codes: F33.9 - Major depressive disorder, recurrent, unspecified Jagdish Lozano MD Oct 18, 2017 09:15
[2017-10-18] MEDS: SODIUM CHLORIDE 0.9% FLUSH 10 ML FLUSH IV FLUSH SCH ×2 (09:16→22:37)
[2017-10-18] MEDS: diphenhydrAMINE HCL 25 MG CAP PO PRN ×2 (11:57→22:49)
--- NOTE | 2017-10-18 13:17 | HHI.IDPN ---
Subjective Subjective Remarks Patient is a 47-year-old female, with known end-stage renal disease, goes to hemodialysis Saturday and Saturday, apparently she has missed the last 5 days of her dialysis treatment. Patient stated that she had the flu, and was also having a lot of diarrhea and couldn't get out of bed. Over the last 24 hours she was noted to be very somnolent and not answering her questions. Paramedics were called, and she was found to be obtunded. She was taken to the emergency room. Patient ended up getting intubated. Patient was immediately started on hemodialysis. Sputum culture grew MRSA. Patient has been getting IV vancomycin. Patient initially got extubated, but had stridor, and required reintubation. She was given steroids, and Trileptal extubation was again done and with success. Patient currently feels much better. Denies shortness of breath. Her coughing is better and she brings up some yellowish phlegm. She had her hemodialysis yesterday. She is afebrile. She has problem with nausea, but no vomiting. No abdominal pain. Patient has had frequent bowel movement. It was worse before. C diff (+). Not voiding due to her known renal failure. Infectious disease consultation has been requested to evaluate the patient for treatment of her pneumonia. Notes reviewed Temps ok No new complaints Stools better SOB better Spoke with HD and floor nurse She did not get her Vanco dose yesterday Antibiotics Current Medications PO vanco Medications (Trade) Dose Ordered Sig/Jen Route Start Time Stop Time Status Last Admin (NS Flush) 2 ml UNSCH PRN IV FLUSH 10/08/17 17:30 10/14/17 12:01 (NS Flush) 2 ml BID IV FLUSH 10/08/17 21:00 10/18/17 09:16 (Zofran Inj) 4 mg Q6H PRN IV PUSH 10/08/17 17:30 10/13/17 21:43 (Albuterol Neb) 2.5 mg Q2HR NEB PRN INH 10/08/17 17:30 10/10/17 17:07 Miscellaneous Information 1 Q361D XX 10/08/17 17:30 (Senokot) 17.2 mg Q12H PRN PO 10/08/17 17:30 (Dulcolax Supp) 10 mg DAILY PRN RECTAL 10/08/17 17:30 (Lactulose Liq) 30 ml DAILY PRN PO 10/08/17 17:30 (Peridex 0.12% Liq) 15 ml BID@08,20 MT 10/08/17 20:00 10/12/17 20:00 (D50w (Vial) Inj) 50 ml UNSCH PRN IV PUSH 10/08/17 17:30 10/09/17 05:41 (Glucagon Inj) 1 mg UNSCH PRN OTHER 10/08/17 17:30 (Eliquis) 2.5 mg BID PO 10/08/17 21:45 10/18/17 09:11 (Zoloft) 100 mg DAILY PO 10/09/17 09:00 10/18/17 09:12 Sodium Chloride 1,000 ml @ 0 mls/hr Q0M PRN OTHER 10/08/17 18:10 10/12/17 11:20 (Heparin Inj) 8,000 units UNSCH PRN IV FLUSH 10/08/17 18:15 Sodium Chloride 1,000 ml @ 200 mls/hr Q5H PRN IV 10/08/17 18:10 Sodium Chloride 1,000 ml @ 0 mls/hr Q0M PRN OTHER 10/08/17 18:10 (Mannitol Inj) 12.5 gm UNSCH PRN IV 10/08/17 18:15 Albumin Human 100 ml @ 60 mls/hr UNSCH PRN IV 10/08/17 18:15 (NS Flush) 5 ml UNSCH PRN IV FLUSH 10/08/17 18:15 (Zofran Inj) 4 mg UNSCH PRN IV PUSH 10/08/17 18:15 (Tylenol) 650 mg UNSCH PRN PO 10/08/17 18:15 (Benadryl) 25 mg UNSCH PRN PO 10/08/17 18:15 10/18/17 11:57 (Nitrostat Sl) 0.4 mg UNSCH PRN SL 10/08/17 18:15 (Catapres) 0.1 mg UNSCH PRN PO 10/08/17 18:15 10/17/17 21:35 (Epogen Inj) 4,000 units UNSCH PRN IV PUSH 10/08/17 18:15 10/17/17 12:19 (Gelfoam 12 Mm/7 Mm Top) 1 foam UNSCH PRN TOP 10/08/17 18:15 10/12/17 11:20 Sodium Thiosulfate 54995 mg/Sterile Water 200 ml @ 150 mls/hr WITH DIALYSIS PRN IV 10/08/17 18:15 10/17/17 12:19 (Tylenol 650 Mg/ 20 ml Liq) 650 mg Q6H PRN PO 10/08/17 18:15 (Bactroban Nasal 2% Oint) Taper BID EACH NARE 10/09/17 09:00 10/05/18 08:59 10/16/17 08:44 (Vitamin D3) 5,000 units DAILY PO 10/09/17 09:00 10/18/17 09:11 (Plavix) 75 mg DAILY PO 10/09/17 09:00 10/18/17 09:12 (Nephrocaps) 1 cap DAILY PO 10/09/17 09:00 10/18/17 09:11 (Apresoline Inj) 10 mg Q1HR PRN IV PUSH 10/09/17 16:30 10/10/17 15:30 (Coreg) 25 mg BID PO 10/10/17 21:00 10/18/17 09:11 (Prinivil) 20 mg BID PO 10/10/17 21:00 10/18/17 09:11 (Trandate Inj) 10 mg Q1HR PRN IV 10/10/17 16:45 10/10/17 16:51 (Nitroglycerin 2% Oint) 2 inch Q6HR PRN TOPICAL 10/10/17 16:30 (Peridex 0.12% Liq) 15 ml BID@08,20 MT 10/10/17 20:00 10/12/17 20:00 (Bactroban Nasal 2% Oint) Taper BID EACH NARE 10/11/17 21:00 10/07/18 20:59 10/13/17 21:00 (Vancomycin 25 Mg/ml Liq) 250 mg Q6H PO 10/11/17 23:00 10/24/17 12:00 10/18/17 12:54 (Colace) 100 mg BID PO 10/12/17 21:00 10/16/17 08:45 (Habitrol 7 Mg Patch.24 Hr) 1 patch DAILY T-DERMAL 10/13/17 09:00 10/18/17 09:13 (Protonix) 40 mg DAILY PO 10/13/17 09:00 10/18/17 09:11 Miscellaneous Information 1 HS T-DERMAL 10/12/17 21:00 10/17/17 20:50 (NovoLIN R SUPPLEMENTAL SCALE) 1 ACHS AND 3AM SQ 10/12/17 21:00 10/17/17 20:41 (Phoslo) 667 mg TID PO 10/13/17 09:00 10/17/17 18:08 (Levemir Inj) 5 units Q12HR SQ 10/12/17 21:00 10/18/17 09:11 Vancomycin HCl 1000 mg/Sodium Chloride 250 ml @ 250 mls/hr WITH DIALYSIS ONCE IV 10/19/17 08:00 10/19/17 08:59 Past Medical History Diabetes mellitus Diabetic retinopathy with clinical blindness End-stage renal disease on hemodialysis Saturday/Saturday/Saturday secondary to hypertension, diabetes and AIN secondary to vancomycin Peripheral vascular disease Peripheral arterial disease Essential hypertension Dyslipidemia Hepatitis C History of calciphylaxis Chronic apixaban use History of splenic abscess - treated with Abx and percutaneous drainage Previous Klensiella and Enterococcal bacteremia - MARILU negative; has has thickened MV History of calciphylaxis Coronary artery disease Depression Constipation Past Surgical History Right below the knee amputation Cholecystectomy IR placement of perisplenic drain T&A Right upper extremity AV fistula Right nephrectomy Dental extraction Right oophorectomy Left lower extremity angioplasty Allergies: Coded Allergies: codeine (Verified Allergy, Severe, HYPERACTIVITY &ITCH, 07/11/17) iodine (Verified Allergy, Severe, TOPICAL/ITCH, 07/11/17) potassium iodide (Verified Allergy, Severe, TOPICAL/ITCH, 07/11/17) povidone-iodine (Verified Allergy, Severe, TOPICAL/ITCH, 07/11/17) sodium iodide (Verified Allergy, Severe, TOPICAL/ITCH, 07/11/17) sodium iodide (Verified Allergy, Severe, TOPICAL/ITCH, 07/11/17) iohexol (Verified Allergy, Intermediate, HIVES, 07/11/17) Pork/Porcine Containing Products (Verified Allergy, Unknown, 07/11/17) penicillin G (Verified Allergy, Unknown, 07/11/17) Objective . Vital Signs Date Time Temp Pulse Resp B/P (MAP) Pulse Ox O2 Delivery O2 Flow Rate FiO2 3/9/18 12:00 98.7 70 16 179/70 (106) 93 10/18/17 08:00 98.3 68 17 145/63 (90) 95 10/18/17 04:00 97.0 65 20 149/63 (91) 95 10/18/17 00:08 71 10/18/17 00:00 98.2 73 20 194/77 (116) 94 10/17/17 21:31 73 226/73 (123) 10/17/17 20:00 98.4 76 20 209/88 (128) 96 10/17/17 19:33 95 10/17/17 16:00 98.2 72 17 176/77 (110) 95 Imaging Last Impressions Chest X-Ray 10/13/17 0600 Signed Impressions: Service Date/Time: Friday, October 13, 2017 03:36 - CONCLUSION: The lungs are clear. Mark Watson MD Head CT 10/08/17 1616 Signed Impressions: Service Date/Time: Sunday, October 08, 2017 21:52 - CONCLUSION: 1. No evidence of acute intracranial pathology. No masses are identified. Rhys Barker MD Physical Exam GENERAL: awake and alert, not in respiratory distress. SKIN: Warm and dry. Has some healing wounds on her face. No embolic lesions HEAD: Atraumatic. Normocephalic. No temporal wasting, or tenderness. EYES: [place] conjunctiva. No petechia or hemorrhage. Pupils equal, round and reactive to light. Extraocular movements full and intact. No scleral icterus. No injection or drainage. EARS, NOSE AND THROAT: Nose without bleeding or purulent nasal discharge. No sinus tenderness. Mucous membranes pink and moist. No oral lesions noted. No exudate. No oral thrush. NECK: Trachea midline. Supple and not tender, no meningeal signs CARDIOVASCULAR: Regular rate and rhythm. No murmurs, rubs or gallops heard RESPIRATORY: Clear to auscultation. Breath sounds equal bilaterally. No rales , wheezing or rhonchi ABDOMEN: Soft, non-tender, nondistended. Bowel sounds present and normoactive. No guarding. No rebound. No organomegaly. EXTREMITIES: No clubbing, cyanosis, or edema. Well healed stump RBK. No calf tenderness. Well perfused and warm. AVF RUE ok NEUROLOGICAL: Awake and alert. Cranial nerves grossly intact. Motor grossly within normal limits. PSYCHIATRIC: Normal affect, calm and cooperative. LINE: No evidence of infection Assessment & Plan Remarks IMPRESSION MRSA PNA, better - clinically and radiographically Respiratory failre, doing well post extubation C diff colitis, improving ESRD on HD S/P Rx splenic abscess last year RECOMMENDATION Will give IV Vanco dose today and that will be last dose 14 days po Vancomycin to Rx C diff colitis - end date ordered in [employer] Monitor progress Clinically doing well from ID standpoint D/C plans noted for tomorrow after her HD D/W Carrie Johnson MD Oct 18, 2017 13:17
[2017-10-18] MEDS ORDERED: VANCOMYCIN INJ 1,000 MG in SODIUM CHLOR 0.9% 250 ML INJ 250 ML IV ONE (14:00)
--- NOTE | 2017-10-18 16:37 | HHI.NPPN ---
Subjective History of Present Illness 47 Year old female with ESRD, non compliance. Objective Data Data Vital Signs Date Time Temp Pulse Resp B/P (MAP) Pulse Ox O2 Delivery O2 Flow Rate FiO2 10/18/17 12:00 98.7 70 16 179/70 (106) 93 10/18/17 08:00 98.3 68 17 145/63 (90) 95 10/18/17 04:00 97.0 65 20 149/63 (91) 95 10/18/17 00:08 71 10/18/17 00:00 98.2 73 20 194/77 (116) 94 10/17/17 21:31 73 226/73 (123) 10/17/17 20:00 98.4 76 20 209/88 (128) 96 10/17/17 19:33 95 -: 10/15/17 0850 Physical Exam General Appearance: Well Developed Neck Neck Exam: Neck Supple Pulmonary Resp Exam: Clear Bilaterally, Breath Sounds Equal Cardiology CV Exam: Regular, Normal Sinus Rhythm Gastrointestinal/Abdomen GI Exam: Soft, Non-Tender, Bowel Sounds Present Extremeties Extremities Exam: Trace Edema Extremeties Remarks ischemic Lt foot, rt BKA Assessment/Plan Problem List: (1) ESRD (end stage renal disease) on dialysis ICD Codes: N18.6 - End stage renal disease; Z99.2 - Dependence on renal dialysis Status: Chronic Plan: Patient on hemodialysis TTS dialysis UF 3 L yesterday follows with Dr. 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
[2017-10-18] MEDS ORDERED: amLODIPine BESYLATE 5 MG TAB PO ONE (16:45)
[2017-10-18] MEDS: REMOVE OLD PATCH T-DERMAL SCH (21:00)
[2017-10-19 00:16] VITALS: PULSE 73
[2017-10-19 00:33] VITALS: BP 190/90; PULSE 76; RESP 18; TEMP 97.6; O2SAT 96
[2017-10-19] MEDS: cloNIDine HCL 0.1 MG TAB PO PRN (01:47)
[2017-10-19] MEDS: INSULIN NovoLIN REGULAR SUPPLEMENTAL SCALE SQ SCH ×2 (03:00→07:43)
[2017-10-19 04:00] VITALS: BP 190/91; PULSE 71; RESP 18; TEMP 98.4; O2SAT 97
[2017-10-19] MEDS: VANCOMYCIN 25 MG/ML SOLN 100 ML BOTTLE PO SCH (04:15)
[2017-10-19 06:31] VITALS: BP 172/80
[2017-10-19] MEDS: CHLORHEXIDINE 0.12% (ORAL KIT) 15 ML CUP MT SCH ×2 (07:27)
[2017-10-19] MEDS: MUPIROCIN 2% OINT 1 APPLIC/GM SYR EACH NARE SCH ×2 (07:28)
[2017-10-19 08:00] VITALS: BP 179/75; PULSE 66; RESP 17; TEMP 96.7; O2SAT 94
[2017-10-19] MEDS ORDERED: VANCOMYCIN INJ 1,000 MG in SODIUM CHLOR 0.9% 250 ML INJ 250 ML IV ONE (08:00)
[2017-10-19] MEDS: PANTOPRAZOLE SOD 40 MG DELAYED RELEASE TAB PO SCH (08:50)
[2017-10-19] MEDS: CHOLECALCIFEROL (VIT D3) 5000 UNIT CAP PO SCH (08:50)
[2017-10-19] MEDS: CARVEDILOL 12.5 MG TAB PO SCH (08:50)
[2017-10-19] MEDS: CLOPIDOGREL 75 MG TAB PO SCH (08:50)
[2017-10-19] MEDS: VITAMIN B CMPLX/VITC/FOLIC AC CAP PO SCH (08:51)
[2017-10-19] MEDS: CALCIUM ACETATE 667 MG CAP PO SCH (08:51)
[2017-10-19] MEDS: SERTRALINE HCL 100 MG TAB PO SCH (08:51)
[2017-10-19] MEDS: APIXABAN 2.5 MG TABLET PO SCH (08:51)
[2017-10-19] MEDS: DOCUSATE SODIUM 100 MG CAP PO SCH (08:51)
[2017-10-19] MEDS: LISINOPRIL 20 MG TAB PO SCH (08:51)
[2017-10-19] MEDS: INSULIN DETEMIR 100 UNITS/ML VIAL SQ SCH (08:51)
[2017-10-19] MEDS: NICOTINE 7 MG/24 HR PATCH T-DERMAL SCH (08:52)
[2017-10-19] MEDS ORDERED: amLODIPine BESYLATE 5 MG TAB PO SCH (09:00)
--- NOTE | 2017-10-19 09:17 | HHI.NPPN ---
Subjective History of Present Illness 47 Year old female with ESRD, non compliance. Additional Remarks No complaints except not sleeping well. Per nursing very poor appetite (Raquel Cerda) Review of Systems Respiratory Respiratory Remarks Denies SOB (Raquel Cerda) Cardiovascular Cardiac Remarks Denies CP (Raquel Cerda) Gastrointestinal GI Remarks denies abdominal pain (Raquel Cerda) Objective Data Data Vital Signs Date Time Temp Pulse Resp B/P (MAP) Pulse Ox O2 Delivery O2 Flow Rate FiO2 10/19/17 08:00 96.7 66 17 179/75 (109) 94 10/19/17 06:31 172/80 (110) 10/19/17 04:00 98.4 71 18 190/91 (124) 97 10/19/17 00:33 97.6 76 18 190/90 (123) 96 10/19/17 00:16 73 10/18/17 20:00 97.2 80 18 180/80 (113) 98 10/18/17 17:42 97 21 10/18/17 16:00 98.7 66 15 139/88 (105) 97 10/18/17 12:00 98.7 70 16 179/70 (106) 93 (Raquel Cerda) -: 10/15/17 0850 Physical Exam General Appearance: Well Developed (Raquel Cerda) Neck Neck Exam: Neck Supple (Raquel Cerda) Pulmonary Resp Exam: Clear Bilaterally, Breath Sounds Equal (Raquel Cerda) Cardiology CV Exam: Regular, Normal Sinus Rhythm (Raquel Cerda) Gastrointestinal/Abdomen GI Exam: Soft, Non-Tender, Bowel Sounds Present (Raquel Cerda) Extremeties Extremities Exam: Trace Edema (Raquel Cerda) Assessment/Plan Problem List: (1) ESRD (end stage renal disease) on dialysis ICD Codes: N18.6 - End stage renal disease; Z99.2 - Dependence on renal dialysis Status: Chronic Plan: Patient on hemodialysis TTS follows with Dr. Mason Calcamrikylaxis gets Sodium Thiosulfate Monitor fluid and electrolytes. MRSA pneumonia IV vancomycin completed. On Oral vanco for C difficile colitis. BP remains elevated expect improvement after dialysis. Amlodipine added yesterday. On Lisinopril and Coreg Plans for discharge after dialysis today (2) Hyperkalemia ICD Codes: E87.5 - Hyperkalemia Status: Acute Plan: resolved with hemodialysis (3) Diabetes ICD Codes: E11.9 - Type 2 diabetes mellitus without complications Status: Chronic Plan: Continue to monitor (4) Calciphylaxis ICD Codes: E83.59 - Other disorders of calcium metabolism Status: Acute Plan: She was getting sodium Thiosulfate and this will be continued (Raquel Cerda) Problem List: (1) ESRD (end stage renal disease) on dialysis ICD Codes: N18.6 - End stage renal disease; Z99.2 - Dependence on renal dialysis Status: Chronic Plan: Patient on hemodialysis TTS follows with Dr. Marlon Silva gets Sodium Thiosulfate Monitor fluid and electrolytes. MRSA pneumonia IV vancomycin completed. On Oral vanco for C difficile colitis. BP remains elevated expect improvement after dialysis. Amlodipine added yesterday. On Lisinopril and Coreg Plans for discharge after dialysis today. Patient seen during HD, agree with above. 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
[2017-10-19] MEDS ORDERED: AMLO5 PO (10:30)
[2017-10-19] MEDS: SODIUM THIOSULFATE INJ 25,000 MG in WATER STERILE FOR INJ 100 ML IV PRN (12:27)
[2017-10-19] MEDS: EPOETIN ALFA 10,000 UNITS/ML VIAL IV PUSH PRN (12:27)
--- NOTE | 2017-10-19 13:02 | HHI.PR ---
Subjective Remarks seen in HD tolerated well no complains BP 158/62 Objective Vitals Vital Signs Date Time Temp Pulse Resp B/P (MAP) Pulse Ox O2 Delivery O2 Flow Rate FiO2 10/19/17 08:00 96.7 66 17 179/75 (109) 94 10/19/17 06:31 172/80 (110) 10/19/17 04:00 98.4 71 18 190/91 (124) 97 10/19/17 00:33 97.6 76 18 190/90 (123) 96 10/19/17 00:16 73 10/18/17 20:00 97.2 80 18 180/80 (113) 98 10/18/17 17:42 97 21 10/18/17 16:00 98.7 66 15 139/88 (105) 97 I/O 10/18/17 10/18/17 10/18/17 10/19/17 10/19/17 10/19/17 07:00 15:00 23:00 07:00 15:00 23:00 Intake Total 360 ml 250 ml 300 ml 780 ml Output Total 4500 ml Balance 360 ml 250 ml 300 ml 780 ml -4500 ml Intake Oral 360 ml 300 ml 780 ml IV Total 250 ml Hemodialysis 4500 ml # Voids 0 0 # Bowel Movements 1 0 1 Result Diagram: 10/15/17 0850 Imaging Last Impressions Chest X-Ray 10/13/17 0600 Signed Impressions: Service Date/Time: Friday, October 13, 2017 03:36 - CONCLUSION: The lungs are clear. Mark Watson MD Head CT 10/08/17 1616 Signed Impressions: Service Date/Time: Sunday, October 08, 2017 21:52 - CONCLUSION: 1. No evidence of acute intracranial pathology. No masses are identified. Rhys Barker MD Objective Remarks awake and alert, no acute distress anicteric no rales,no wheezes regular rhythm abdomen soft, nontender Right UE- AVF + bruit Right BKA, Left Lower extremity no edema moves all extremities spontaneously A/P Problem List: (1) Acute respiratory failure ICD Code: J96.00 - Acute respiratory failure, unspecified whether with hypoxia or hypercapnia (2) Altered mental status ICD Code: R41.82 - Altered mental status, unspecified Status: Resolved (3) ESRD (end stage renal disease) on dialysis ICD Code: N18.6 - End stage renal disease; Z99.2 - Dependence on renal dialysis Status: Chronic (4) Hyperkalemia ICD Code: E87.5 - Hyperkalemia Status: Acute (5) PAD (peripheral artery disease) ICD Code: I73.9 - Peripheral vascular disease, unspecified Status: Acute Permanent Comment: 10/2015 -Dr. Santillan - PAD - Rt calf/foot - angiogram done. Chronic total occlusion of AT with right AT Ath/[employer] on 09/23/15. Right great toe not healing. Discoloration 4th toe. Dr. Garvey podiatry referral. Ultrasound 3 months for post procedure. If ok then Q6 months us with office visit. Last Edited By: Jude Ron on Oct 20, 2015 15:58 (6) Tobacco abuse ICD Code: Z72.0 - Tobacco use Status: Chronic (7) Hypertension ICD Code: I10 - Essential (primary) hypertension Status: Chronic (8) Diabetes ICD Code: E11.9 - Type 2 diabetes mellitus without complications Status: Chronic (9) Chronic Medical Problems Status: Chronic (10) Peripheral vascular disease ICD Code: I73.9 - Peripheral vascular disease, unspecified Status: Acute (11) Thrombocytopenia ICD Code: D69.6 - Thrombocytopenia, unspecified (12) Diabetic retinopathy ICD Code: E11.319 - Type 2 diabetes mellitus with unspecified diabetic retinopathy without macular edema Status: Chronic (13) Hyponatremia ICD Code: E87.1 - Hypo-osmolality and hyponatremia (14) Depression ICD Code: F32.9 - Major depressive disorder, single episode, unspecified Status: Chronic Assessment and Plan 47 years old female Depression- pleasnt and interactive Diabetic retinopathy/blindness History of THC use Remote IV drug use Acetaminophen 650 mg p.o. every 6 hours as needed fever/pain 1 through 10 Sertraline 100 mg p.o. daily for depression resumed CT brain revealed no acute intracranial abnormalities Essential hypertension PVD PAD Dyslipidemia Coronary artery disease BP labile Monitor and adjust - meds Carvedilol 25 mg twice daily lisinopril 20 mg twice daily Clopidogrel bisulfate 75 mg p.o. daily amlodpine 5 mg po daily added Resp: Acute respiratory failure secondary to altered mental status- resolved Tobaccoism Stridor Nasal cannula to maintain saturations greater than or equal to 92% Incentive spirometry while awake Albuterol/ipratropium aerosols every 6 hours with albuterol aerosols every 2 hours. S/P dexamethasone 4 mg IV every 6 hours x 2 days completed Resuming nicotine patch 7 mg daily. GI: Constipation History of splenic abscess/perisplenic Hyperammonia History of hepatitis C Hypoalbuminemia On docusate sodium 100 mg by mouth twice daily at home. Currently on docusate sodium/senna 1 tablet twice daily Lansoprazole 30 mg by tube daily for GI prophylaxis switch to omeprazole 40 mg p.o. daily which likely be switched to pantoprazole 40 mg p.o. daily on ADA 1800cal , Renal diet Diabetes mellitus good readings . monitor and adjust On insulin detemir 5 units twice daily. Noted hypoglycemic on admission now hyperglycemic likely steroid-induced- improved- good readings Sliding scale insulin with Novulin R with Accu-Cheks every 4 hours to maintain glycemia/moderate regimen TSH 1.09 Renal: End-stage renal disease on hemodialysis Saturday/Saturday/Saturday. Secondary to diabetes, hypertension, AIN secondary to vancomycin? History of calciphylaxis dialysis per nephrology- // Heme: Chronic apixaban use Normocytic anemia continue Apixaban 2.5 mg twice daily. Noted pork allergy Follow CBC daily. Monitor trends ID: History of laura-splenic abscess MRSA pneumonia C diff colitis Document has been on levofloxacin 250 mg daily and clindamycin 300 mg every 6 hours DC Aztreonam, metronidazole Appreciated Dr Sanchez- recommendation Vancomycin IV x 2 more doses with HD- last dose today 10/19 po Vancomycin- stop date in chart from 10/11 till 10/24 Check blood cultures 2 10/08 no growth, sputum MRSA, influenza 10/08 negative MSK: Right below the knee amputation- stump dry States history left foot injury PT evaluate and treat. states gets around with a wheelchair most of the time Continue cholecalciferol 5000 units p.o. daily FEN: Hyperkalemia/acute -resolved Hyperphosphatemia Hyponatremia Calcium acetate 667 mg p.o. 3 times daily. Access -Utilize peripheral IV. Central line if indicated Prophylaxis -GI -pantoprazole 40 mg p.o. daily -DVT -SCDs left lower extremity/apixaban Activity- out of bed to chair for all meal CM consult for DC planning- DC home todmorrow after HD d/w CM to assist with DC needs Problem Qualifiers (1) Acute respiratory failure: Qualified Codes: J96.01 - Acute respiratory failure with hypoxia (2) Altered mental status: Qualified Codes: R41.82 - Altered mental status, unspecified (3) Hypertension: Qualified Codes: I10 - Essential (primary) hypertension (4) Diabetes: Qualified Codes: E11.59 - Type 2 diabetes mellitus with other circulatory complications; Z79.4 - alf (current) use of insulin (5) Diabetic retinopathy: Qualified Codes: E10.319 - Type 1 diabetes mellitus with unspecified diabetic retinopathy without macular edema (6) Depression: Qualified Codes: F33.9 - Major depressive disorder, recurrent, unspecified Jagdish Lozano MD Oct 19, 2017 13:02
[2017-10-19] MEDS ORDERED: CALC667C PO (13:51)
[2017-10-19] MEDS ORDERED: VANC250C2 PO (13:51)
--- NOTE | 2017-10-19 17:25 | HHI.DS ---
Discharge Summary Admission Date Oct 08, 2017 at 17:25 Discharge Date: Oct 19, 2017 Admitting Diagnosis respiratory depression, hyperkalemia, renal failure, acidosis (1) Acute respiratory failure ICD Code: J96.00 - Acute respiratory failure, unspecified whether with hypoxia or hypercapnia Diagnosis: Principal (2) Altered mental status ICD Code: R41.82 - Altered mental status, unspecified Diagnosis: Principal Status: Resolved (3) ESRD (end stage renal disease) on dialysis ICD Code: N18.6 - End stage renal disease; Z99.2 - Dependence on renal dialysis Diagnosis: Secondary Status: Chronic (4) Hyperkalemia ICD Code: E87.5 - Hyperkalemia Diagnosis: Principal Status: Acute (5) PAD (peripheral artery disease) ICD Code: I73.9 - Peripheral vascular disease, unspecified Diagnosis: Secondary Status: Acute (6) Tobacco abuse ICD Code: Z72.0 - Tobacco use Diagnosis: Secondary Status: Chronic (7) Hypertension ICD Code: I10 - Essential (primary) hypertension Diagnosis: Secondary Status: Chronic (8) Diabetes ICD Code: E11.9 - Type 2 diabetes mellitus without complications Diagnosis: Principal Status: Chronic (9) Chronic Medical Problems Diagnosis: Principal Status: Chronic (10) Peripheral vascular disease ICD Code: I73.9 - Peripheral vascular disease, unspecified Diagnosis: Principal Status: Acute (11) Thrombocytopenia ICD Code: D69.6 - Thrombocytopenia, unspecified (12) Diabetic retinopathy ICD Code: E11.319 - Type 2 diabetes mellitus with unspecified diabetic retinopathy without macular edema Diagnosis: Secondary Status: Chronic (13) Hyponatremia ICD Code: E87.1 - Hypo-osmolality and hyponatremia Diagnosis: Principal (14) Depression ICD Code: F32.9 - Major depressive disorder, single episode, unspecified Diagnosis: Secondary Status: Chronic Procedures hemodialysis Brief History - From Admission 47-year-old female. Date of admission 10/08/2017. Past medical history includes end-stage renal disease on hemodialysis Saturday/Saturday/Saturday,, diabetes mellitus with retinopathy, peripheral vascular disease, peripheral arterial disease, presents via EMS with altered mental status. According to the family members the patient has not had her last 5 scheduled dialysis sessions. They reported that over the last 24 hours she was somnolent and not answering questions or acting her normal self. When paramedics arrived, they found her obtunded and arousable to stimuli however she would fall right back to sleep. The patient presents the same way here. She is unable to give any history. She is unable to state whether she is having any discomfort or not. As soon as she opens her eyes to stimuli, she falls right back asleep. Baseline laboratories revealed a sodium 129 potassium of 8.0 and a creatinine of greater than 17. No peaked T waves are appreciated on EKG. CBC showed thrombocytopenia of 144. Ammonia levels elevated at 44. Patient was intubated using 20 mg etomidate and 10 mg vecuronium. Nephrology was consulted stat for hemodialysis. We are asked to admit the patient CT brain currently pending at time of dictation CBC/BMP: 10/15/17 0850 Imaging Last Impressions Chest X-Ray 10/13/17 0600 Signed Impressions: Service Date/Time: Friday, October 13, 2017 03:36 - CONCLUSION: The lungs are clear. Mark Watson MD Head CT 10/08/17 1616 Signed Impressions: Service Date/Time: Sunday, October 08, 2017 21:52 - CONCLUSION: 1. No evidence of acute intracranial pathology. No masses are identified. Rhys Barker MD PE at Discharge awake and alert, no acute distress anicteric no rales,no wheezes regular rhythm abdomen soft, nontender Right UE- AVF + bruit Right BKA, Left Lower extremity no edema moves all extremities spontaneously Pt update on day of discharge awake and alert afebrile no distress good po Hospital Course 47 years old female Depression- pleasnt and interactive Diabetic retinopathy/blindness History of THC use Remote IV drug use Acetaminophen 650 mg p.o. every 6 hours as needed fever/pain 1 through 10 Sertraline 100 mg p.o. daily for depression resumed CT brain revealed no acute intracranial abnormalities Essential hypertension PVD PAD Dyslipidemia Coronary artery disease BP labile Monitor and adjust - meds Carvedilol 25 mg twice daily lisinopril 20 mg twice daily Clopidogrel bisulfate 75 mg p.o. daily amlodpine 5 mg po daily added Resp: Acute respiratory failure secondary to altered mental status- resolved Tobaccoism Stridor Nasal cannula to maintain saturations greater than or equal to 92% Incentive spirometry while awake Albuterol/ipratropium aerosols every 6 hours with albuterol aerosols every 2 hours. S/P dexamethasone 4 mg IV every 6 hours x 2 days completed Resuming nicotine patch 7 mg daily. GI: Constipation History of splenic abscess/perisplenic Hyperammonia History of hepatitis C Hypoalbuminemia On docusate sodium 100 mg by mouth twice daily at home. Currently on docusate sodium/senna 1 tablet twice daily Lansoprazole 30 mg by tube daily for GI prophylaxis switch to omeprazole 40 mg p.o. daily which likely be switched to pantoprazole 40 mg p.o. daily on ADA 1800cal , Renal diet Diabetes mellitus good readings . monitor and adjust On insulin detemir 5 units twice daily. Noted hypoglycemic on admission now hyperglycemic likely steroid-induced- improved- good readings Sliding scale insulin with Novulin R with Accu-Cheks every 4 hours to maintain glycemia/moderate regimen TSH 1.09 Renal: End-stage renal disease on hemodialysis Saturday/Saturday/Saturday. Secondary to diabetes, hypertension, AIN secondary to vancomycin? History of calciphylaxis dialysis per nephrology- // Heme: Chronic apixaban use Normocytic anemia continue Apixaban 2.5 mg twice daily. Noted pork allergy Follow CBC daily. Monitor trends ID: History of laura-splenic abscess MRSA pneumonia C diff colitis Document has been on levofloxacin 250 mg daily and clindamycin 300 mg every 6 hours DC Aztreonam, metronidazole Appreciated Dr Sanchez- recommendation Vancomycin IV x 2 more doses with HD- last dose today 10/19 po Vancomycin- stop date in chart from 10/11 till 10/24 Check blood cultures 10/08 no growth, sputum MRSA, influenza 10/08 negative MSK: Right below the knee amputation- stump dry States history left foot injury PT evaluate and treat. states gets around with a wheelchair most of the time Continue cholecalciferol 5000 units p.o. daily FEN: Hyperkalemia/acute -resolved Hyperphosphatemia Hyponatremia Calcium acetate 667 mg p.o. 3 times daily. Access -Utilize peripheral IV. Central line if indicated Prophylaxis -GI -pantoprazole 40 mg p.o. daily -DVT -SCDs left lower extremity/apixaban Activity- out of bed to chair for all meal CM consult for DC planning- DC home todmorrow after HD d/w CM to assist with DC needs Pt Condition on Discharge: Stable Discharge Disposition: Discharge Home Discharge Time: > 30 minutes Discharge Instructions DIET: Follow Instructions for: Heart Healthy Diet, Diabetic Diet, Renal Failure Diet Speech Therapy-Diet Recommends: Regular Activities you can perform: Weight Bearing as Rashi Follow up Referrals: Nephrology - 10/22/17 with ABHINAV New Medications: Vancomycin (Vancomycin) 250 Mg Cap 250 MG PO QID for Infection, #20 CAP 0 Refills Amlodipine (Norvasc) 5 Mg Tab 5 MG PO DAILY for HTN for 30 Days, #30 TAB Calcium Acetate (Phosphate Bin (Calcium Acetate) 667 Mg Cap 667 MG PO TID for ESRD for 30 Days, #90 CAP Continued Medications: Apixaban (Eliquis) 2.5 Mg Tab 2.5 MG PO BID for Blood Clot Prevention, TAB 0 Refills B-Complex W/ C & Folic Acid (Nephro-Lory) 1 Tab 1 TAB PO DAILY for Nutritional Supplement, #30 TAB 0 Refills Carvedilol (Coreg) 25 Mg Tab 25 MG PO BID, #60 TAB 0 Refills Cholecalciferol (Vitamin D3) 5,000 Unit Cap 5000 UNITS PO DAILY for vit D, #30 CAP Clopidogrel (Plavix) 75 Mg Tab 75 MG PO DAILY for Blood Clot Prevention, #90 TAB 11 Refills Docusate Sodium (Colace) 100 Mg Capsule 100 MG BID Insulin Detemir Inj (Levemir Inj) 1,000 unit/ 10 ML Vial 5 UNITS SQ BID, #1 BOTTLE 0 Refills Do not mix with any other Insulin. Lisinopril (Lisinopril) 20 Mg Tab 20 MG PO BID, #30 TAB 0 Refills Nicotine Patch (Nicotine Patch) 7 Mg/24 Hr Patch 7 MG T-DERMAL DAILY for Smoking Cessation, #30 PATCH 5 Refills Omeprazole (Omeprazole) 40 Mg Cap 40 MG PO DAILY, #30 CAP 5 Refills Sertraline (Sertraline) 100 Mg Tab 100 MG PO DAILY, #30 TAB 0 Refills Discontinued Medications: Clindamycin (Cleocin) 150 Mg Cap 300 MG PO Q6H for 26 Days, #208 CAP 0 Refills Levofloxacin (Levaquin) 250 Mg Tablet 250 MG PO DAILY, #26 TAB 0 Refills Lacierda,Alfea M. MD Oct 19, 2017 17:25
== END 2017-10-19 16:40 | disposition home or self-care (01) | DRG 208 ==
LOC: NEPE 16:05 → NEDA 17:25 → HIME 22:10 → N07A 10-14 16:48
PROVIDERS: ADMIT Internal Medicine; ATTEND Internal Medicine
PROC: 0BH17EZ Insertion of Endotracheal Airway into Trachea, Via Natural or Artificial Opening (ICD-10-PCS; principal; 2017-10-08)
PROC: 5A1945Z Respiratory Ventilation, 24-96 Consecutive Hours (ICD-10-PCS; 2017-10-08)
PROC: 5A1D70Z Performance of Urinary Filtration, Intermittent, Less than 6 Hours Per Day (ICD-10-PCS; 2017-10-08)
PROC: 0BH18EZ Insertion of Endotracheal Airway into Trachea, Via Natural or Artificial Opening Endoscopic (ICD-10-PCS; 2017-10-10)
PROC: 5A1945Z Respiratory Ventilation, 24-96 Consecutive Hours (ICD-10-PCS; 2017-10-10)
DX: J96.01 Acute respiratory failure with hypoxia (principal); J15.212 Pneumonia due to Methicillin resistant Staphylococcus aureus; N18.6 End stage renal disease; E87.2 Acidosis; I12.0 Hypertensive chronic kidney disease with stage 5 chronic kidney disease or end stage renal disease; A04.72 Enterocolitis due to Clostridium difficile, not specified as recurrent; Z68.41 Body mass index [BMI] 40.0-44.9, adult; E87.1 Hypo-osmolality and hyponatremia; E87.5 Hyperkalemia; D69.6 Thrombocytopenia, unspecified; E11.22 Type 2 diabetes mellitus with diabetic chronic kidney disease; E11.51 Type 2 diabetes mellitus with diabetic peripheral angiopathy without gangrene; E11.319 Type 2 diabetes mellitus with unspecified diabetic retinopathy without macular edema; Z99.2 Dependence on renal dialysis; D64.9 Anemia, unspecified; E83.39 Other disorders of phosphorus metabolism; E83.59 Other disorders of calcium metabolism; E88.09 Other disorders of plasma-protein metabolism, not elsewhere classified; F17.210 Nicotine dependence, cigarettes, uncomplicated; R06.1 Stridor; R41.82 Altered mental status, unspecified; E66.9 Obesity, unspecified; E78.5 Hyperlipidemia, unspecified; I25.10 Atherosclerotic heart disease of native coronary artery without angina pectoris; K21.9 Gastro-esophageal reflux disease without esophagitis; K59.00 Constipation, unspecified; Z79.4 Long term (current) use of insulin; Z89.511 Acquired absence of right leg below knee; Z91.15 Patient's noncompliance with renal dialysis; Z88.5 Allergy status to narcotic agent; Z88.0 Allergy status to penicillin; Z88.8 Allergy status to other drugs, medicaments and biological substances
CPT/HCPCS: 31500; 36600; 51702; 70450; 71045; 80048; 80053; 80069; 80202; 82140; 82550; 82805; 82948; 83605; 83690; 83735; 83970; 84100; 84443; 84484; 84702; 85025; 85027; 85610; 85730; 86403; 87040; 87070; 87147; 87186; 87205; 87493; 87641; 87804; 90935; 93005; 93306; 94003; 94150; 94640; 94664; 96365; 96374; 96375; J0330; J0360; J0610; J1100; J1815; J2405; J3010; J3370; J7030; J7040; J7042; J7050; J7613; P9612; Q4081

== ENCOUNTER 2017-12-20 13:25 | Inpatient (IN) | payer MEDICAID ==
[~2017-12-20] VITALS: Ht 160 cm; Wt 96.1 kg
[2017-12-20] VITALS (8 sets, daily range): BP systolic 115–197; BP diastolic 49–81; PULSE 59–80; RESP 6–18; TEMP 97.2–98.7; O2SAT 92–100
[~2017-12-20 13:25] MED LIST changes: +AMLO5 PO; +CALC667C PO; -CLIN150 PO; -LEVA250T14 PO; +VANC250C2 PO
--- NOTE | 2017-12-20 13:53 | PD ---
HPI Chief Complaint: Respiratory Distress Time Seen by Provider: 13:42 Travel History International Travel<30 days: No Contact w/Intl Traveler<30days: No Traveled to known affect area: No History of Present Illness HPI The patient was seen and examined in the presence of the nurse. This patient is brought in critically ill. She according to family members took an unknown amount of Dilaudid while at home. She was found unresponsive and they called paramedics. It is unknown how much she took and a one time she took it. Patient cannot provide any history or review of systems. Paramedics gave her IV Narcan and were bagging her in route. PFSH Past Medical History Hx Anticoagulant Therapy: Yes (Eliquis) Arthritis: No Asthma: No Autoimmune Disease: No Blood Disorders: No Anxiety: No Depression: Yes Heart Rhythm Problems: No Cancer: No Cardiac Catheterization: Yes Cardiovascular Problems: Yes High Cholesterol: Yes Chemotherapy: No Chest Pain: No Congestive Heart Failure: No COPD: No Cerebrovascular Accident: No Diabetes: Yes Patient Takes Glucophage: Yes Dialysis: Yes (--) Diminished Hearing: No Endocrine: No Gastrointestinal Disorders: Yes (REFLUX) GERD: No Glaucoma: No Genitourinary: Yes Headaches: Yes Hepatitis: No Hiatal Hernia: No Heparin Induced Thrombocytopen: No Hypertension: Yes Immune Disorder: No Implanted Vascular Access Dvce: No Kidney Stones: No Medical other: Yes (ANEMIA) Musculoskeletal: Yes Neurologic: Yes Psychiatric: Yes Reproductive: Yes (previous miscarriage ) Respiratory: Yes (PNEUMONIA) Immunizations Current: Yes Migraines: Yes Myocardial Infarction: No Radiation Therapy: No 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) Seizures: No Sickle Cell Disease: No Sleep Apnea: No Thyroid Disease: No Ulcer: No Tetanus Vaccination: > 5 Years Influenza Vaccination: Yes ?: Unknown : 2 Para: 2 Ovarian Cysts: Yes (RIGHT OOPHRECTOMY) Past Surgical History Abdominal Surgery: Yes (Cholecystectomy) AICD: No Arteriovenous Shunt: No Cardiac Surgery: No Cholecystectomy: Yes Ear Surgery: No Endocrine Surgery: No Eye Surgery: Yes Genitourinary Surgery: No Gynecologic Surgery: Yes (RIGHT OOPHERECTOMY) Insulin Pump: No Joint Replacement: No Neurologic Surgery: No Oral Surgery: Yes (TEETH EXTRACTED) Pacemaker: No Thoracic Surgery: No Tonsillectomy: Yes Other Surgery: Yes Social History Alcohol Use: No Tobacco Use: Yes (2 CIGS/DAY) Substance Use: Yes (marijuana ) Allergies-Medications (Allergen,Severity, Reaction): Coded Allergies: codeine (Verified Allergy, Severe, HYPERACTIVITY &ITCH, 07/11/17) iodine (Verified Allergy, Severe, TOPICAL/ITCH, 07/11/17) potassium iodide (Verified Allergy, Severe, TOPICAL/ITCH, 07/11/17) povidone-iodine (Verified Allergy, Severe, TOPICAL/ITCH, 07/11/17) sodium iodide (Verified Allergy, Severe, TOPICAL/ITCH, 07/11/17) sodium iodide (Verified Allergy, Severe, TOPICAL/ITCH, 07/11/17) iohexol (Verified Allergy, Intermediate, HIVES, 07/11/17) Pork/Porcine Containing Products (Verified Allergy, Unknown, 07/11/17) penicillin G (Verified Allergy, Unknown, 07/11/17) Reported Meds & Prescriptions Reported Meds & Active Scripts Active Vancomycin (Vancomycin HCl) 250 Mg Cap 250 Mg PO QID Calcium Acetate (Calcium Acetate (Phosphate Bin) 667 Mg Cap 667 Mg PO TID 30 Days Norvasc (Amlodipine Besylate) 5 Mg Tab 5 Mg PO DAILY 30 Days Nicotine Patch (Nicotine) 7 Mg/24 Hr Patch 7 Mg T-DERMAL DAILY Levemir Inj (Insulin Detemir) 1,000 unit/ 10 ML Vial 5 Units SQ BID Do not mix with any other Insulin. Plavix (Clopidogrel Bisulfate) 75 Mg Tab 75 Mg PO DAILY Vitamin D3 (Cholecalciferol) 5,000 Unit Cap 5,000 Units PO DAILY Omeprazole 40 Mg Cap 40 Mg PO DAILY Reported Lisinopril 20 Mg Tab 20 Mg PO BID Eliquis (Apixaban) 2.5 Mg Tab 2.5 Mg PO BID Coreg (Carvedilol) 25 Mg Tab 25 Mg PO BID Sertraline (Sertraline HCl) 100 Mg Tab 100 Mg PO DAILY Nephro-Lory (B-Complex W/ C & Folic Acid) 1 Tab 1 Tab PO DAILY Colace (Docusate Sodium) 100 Mg Capsule 100 Mg BID Review of Systems ROS Limitations: Clinical Condition, Altered Mental Status, Unresponsive, Poor Historian Physical Exam Narrative GENERAL: Disheveled and looks older than her actual age. Has decreased responsiveness SKIN: Focused skin assessment reveals no nodules. Skin is Warm and dry. Fungal rash in the groin HEAD: Atraumatic. Normocephalic. EYES: Pupils equal and round. No scleral icterus. No injection or drainage. ENT: No nasal bleeding or discharge. Mucous membranes pink and moist. NECK: Trachea midline. No JVD. CARDIOVASCULAR: Regular rate and rhythm. No murmur appreciated. RESPIRATORY: No accessory muscle use. Clear to auscultation. Breath sounds equal bilaterally. GASTROINTESTINAL: Abdomen soft, non-tender, nondistended. Hepatic and splenic margins not palpable. MUSCULOSKELETAL: Has right-sided BKA. No clubbing. No cyanosis. No edema. NEUROLOGICAL: Very sedated. She will open her eyes to voice. Withdraws to pain stimuli. Normal gag reflex, controlling her airway at this time. No obvious cranial nerve deficits. Motor grossly within normal limits. Normal speech. PSYCHIATRIC: Impossible to assess mood and affect; insight and judgment poor. Data Data Last Documented VS Vital Signs Date Time Temp Pulse Resp B/P (MAP) Pulse Ox O2 Delivery O2 Flow Rate FiO2 12/20/17 15:01 74 10 189/81 (117) 92 Nasal Cannula 5.00 12/20/17 13:28 98.7 Orders Orders Arterial Blood Gas (Abg) (12/20/17 ) Electrocardiogram (12/20/17 14:30) Basic Metabolic Panel (Bmp) (12/20/17 14:30) Complete Blood Count With Diff (12/20/17 14:30) Thyroid Stimulating Hormone (12/20/17 14:30) Urinalysis - C+S If Indicated (12/20/17 14:30) Ct Brain W/O Iv Contrast(Rout) (12/20/17 14:30) Blood Glucose (12/20/17 14:30) Ecg Monitoring (12/20/17 14:30) Iv Access Insert/Monitor (12/20/17 14:30) Cath For Specimen (12/20/17 14:30) Oximetry (12/20/17 14:30) Sodium Chloride 0.9% Flush (Ns Flush) (12/20/17 14:30) Drug Screen, Random Urine (12/20/17 14:30) Alcohol (Ethanol) (12/20/17 14:30) Place In Observation (12/20/17 ) Code Status (12/20/17 16:46) Vital Signs (Adult) Q4H (12/20/17 16:46) Activity Oob Ad Brook (12/20/17 16:46) Leg Man / Telemetry .CONTINUOUS (12/20/17 16:46) Intake + Output PABLO.QSHIFT (12/20/17 16:46) Diet Diabetic (12/20/17 Dinner) Sodium Chloride 0.9% Flush (Ns Flush) (12/20/17 17:00) Sodium Chloride 0.9% Flush (Ns Flush) (12/20/17 21:00) Metoclopramide Inj (Reglan Inj) (12/20/17 17:00) Comprehensive Metabolic Panel (12/21/17 06:00) Complete Blood Count With Diff (12/21/17 06:00) Electrocardiogram (12/20/17 16:46) Pt Request For Service (12/20/17 16:46) Speech Therapy Consult-Eval/Tx (12/20/17 16:46) Case Management Consult (12/20/17 16:46) Heparin Inj (Heparin Inj) (12/20/17 17:00) Scd Bilateral/Knee High PABLO.BID (12/20/17 16:46) Naloxone Inj (Narcan Inj) (12/20/17 17:00) Docusate Sodium-Senna (Areli-Colace) (12/20/17 21:00) Magnesium Hydroxide Liq (Milk Of Magnesi (12/20/17 17:00) Sennosides (Senokot) (12/20/17 17:00) Bisacodyl Supp (Dulcolax Supp) (12/20/17 17:00) Lactulose Liq (Lactulose Liq) (12/20/17 17:00) Troponin I (12/20/17 16:46) Nursing Bedside Swallow Assess .ONCE (12/20/17 16:46) Ammonia (12/20/17 16:54) Consult Nephrology (12/20/17 ) Tylenol (Acetaminophen) (12/20/17 16:57) Blood Culture (12/20/17 16:57) Drug Screen, Random Urine (12/20/17 16:59) Labs Laboratory Tests Test 12/20/17 13:59 12/20/17 14:30 Blood Gas Puncture Site LT RADIAL Blood Gas Patient Temperature 98.6 Blood Gas HCO3 28 mmol/L Blood Gas Base Excess 3.5 mmol/L Blood Gas Oxygen Saturation 90 % Arterial Blood pH 7.41 Arterial Blood Partial Pressure CO2 45 mmHg Arterial Blood Partial Pressure O2 86 mmHG Arterial Blood Oxygen Content 13.8 Vol % Arterial Blood Carboxyhemoglobin 7.1 % Arterial Blood Methemoglobin 0.4 % Blood Gas Hemoglobin 10.8 G/DL Oxygen Delivery Device NASAL CANNULA Blood Gas Liter Flow 5 L/M White Blood Count 5.8 TH/MM3 Red Blood Count 3.83 MIL/MM3 Hemoglobin 11.4 GM/DL Hematocrit 34.9 % Mean Corpuscular Volume 91.2 FL Mean Corpuscular Hemoglobin 29.9 PG Mean Corpuscular Hemoglobin Concent 32.8 % Red Cell Distribution Width 17.7 % Platelet Count 258 TH/MM3 Mean Platelet Volume 7.7 FL Neutrophils (%) (Auto) 77.5 % Lymphocytes (%) (Auto) 10.3 % Monocytes (%) (Auto) 6.8 % Eosinophils (%) (Auto) 4.1 % Basophils (%) (Auto) 1.3 % Neutrophils # (Auto) 4.5 TH/MM3 Lymphocytes # (Auto) 0.6 TH/MM3 Monocytes # (Auto) 0.4 TH/MM3 Eosinophils # (Auto) 0.2 TH/MM3 Basophils # (Auto) 0.1 TH/MM3 CBC Comment DIFF FINAL Differential Comment Blood Urea Nitrogen 31 MG/DL Creatinine 4.94 MG/DL Random Glucose 115 MG/DL Calcium Level 8.7 MG/DL Sodium Level 138 MEQ/L Potassium Level 4.5 MEQ/L Chloride Level 98 MEQ/L Carbon Dioxide Level 29.7 MEQ/L Anion Gap 10 MEQ/L Estimat Glomerular Filtration Rate 9 ML/MIN Thyroid Stimulating Hormone 3rd Gen 1.840 uIU/ML Ethyl Alcohol Level LESS THAN 3 MG/DL [facility] Medical Decision Making Medical Screen Exam Complete: Yes Emergency Medical Condition: Yes Medical Record Reviewed: Yes Differential Diagnosis Overdose, respiratory depression, acidosis Narrative Course I have reviewed the patient's electronic medical record. Patient was hospitalized in October 2017 for respiratory depression Patient reportedly had overdose of Dilaudid. Details are unclear and sketchy. She was given IV Narcan IV placed peripherally I placed a second IV in the right external jugular Gave her 2 mg IV Narcan and will observe her closely with repeated evaluations At this point she is controlling her airway and breathing spontaneously Saturation is 99% on a nasal cannula Labs sent Brain CT is normal ABG is also normal with normal pH and normal bicarb and normal CO2 I will observe the patient for several hours and she is gradually waking up a little by little. now she is talking with her mother in the room She denies intentional overdose Metabolic profile reveals elevated creatinine otherwise normal. CBC normal. Case reviewed with medical residents will admit for toxic encephalopathy/ altered mental status to telemetry They will determine when patient needs dialysis Critical Care Narrative Aggregate critical care time was 80 minutes. Time to perform other separately billable procedures was not included in the critical care time. My time did not include minutes spent treating any other patients simultaneously or on activities that did not directly contribute to the patient's treatment. The services I provided to this patient were to treat and/or prevent clinically significant deterioration that could result in: Loss of airway, aspiration, cardiopulmonary arrest I provided critical care services requiring my management, as noted below: Chart data review, documentation time, medication orders and management, vital sign assessments/reviewing monitor data, ordering and reviewing lab tests, ordering and interpreting/reviewing x-rays and diagnostic studies, care of the patient and discussion of the patient with the admitting physicians. Diagnosis Primary Impression: Toxic encephalopathy Additional Impressions: ESRD on HD Lethargy Admitting Information Admitting Physician Requests: Darryl Rios MD December 20, 2017 13:53
[2017-12-20] MEDS ORDERED: SODIUM CHLORIDE 0.9% FLUSH 10 ML FLUSH IV FLUSH PRN ×2 (14:30→17:00)
[2017-12-20 15:26] LABS: AUTOMATED NEUTROPHIL # 4.5 TH/MM3 (1.8-7.7); BASOPHIL # 0.1 TH/MM3 (0-0.2); BASOPHIL % 1.3 % (0.0-2.0); EOSINOPHIL # 0.2 TH/MM3 (0-0.4); EOSINOPHIL % 4.1 % (0.0-4.0); HEMATOCRIT 34.9 % (35.0-46.0); HEMOGLOBIN 11.4 GM/DL (11.6-15.3); LYMPH % 10.3 % (9.0-44.0); LYMPHOCYTE # 0.6 TH/MM3 (1.0-4.8); MEAN CELL VOLUME 91.2 FL (80.0-100.0); MEAN CORPUSCULAR HEMOGLOBIN 29.9 PG (27.0-34.0); MEAN CORPUSCULAR HGB CONC 32.8 % (32.0-36.0); MEAN PLATELET VOLUME 7.7 FL (7.0-11.0); MONO % 6.8 % (0.0-8.0); MONOCYTE # 0.4 TH/MM3 (0-0.9); NEUT % 77.5 % (16.0-70.0); PLATELET COUNT 258 TH/MM3 (150-450); RED BLOOD COUNT 3.83 MIL/MM3 (4.00-5.30); RED CELL DISTRIBUTION WIDTH 17.7 % (11.6-17.2); WHITE BLOOD COUNT 5.8 TH/MM3 (4.0-11.0)
--- NOTE | 2017-12-20 15:35 | RADRPT ---
EXAM DATE/TIME: 12/20/2017 15:11 [facility] COMPARISON: CT BRAIN W/O CONTRAST, October 08, 2017, 21:52. INDICATIONS : Altered mental status RADIATION DOSE: 56.35 CTDIvol (mGy) MEDICAL HISTORY : Cardiovascular disease. Hypertension. Renal failure SURGICAL HISTORY : Cholecystectomy. Right oophorectomy ENCOUNTER: Initial ACUITY: 1 day PAIN SCALE: 0/10 LOCATION: cranial TECHNIQUE: Multiple contiguous axial images were obtained of the head. Using automated exposure control and adj ustment of the mA and/or kV according to patient size, radiation dose was kept as low as reasonably a chievable to obtain optimal diagnostic quality images. DICOM format image data is available electro nically for review and comparison. FINDINGS: CEREBRUM: The ventricles are normal for age. No evidence of midline shift, mass lesion, hemorrhage or acute in farction. No extra-axial fluid collections are seen. POSTERIOR FOSSA: The cerebellum and brainstem are intact. The 4th ventricle is midline. The cerebellopontine angle i s unremarkable. EXTRACRANIAL: The visualized portion of the orbits is intact. SKULL: The calvaria is intact. No evidence of skull fracture. CONCLUSION: Normal examination for a patient of this age. No significant change has occurred. Arslan Carr MD on December 20, 2017 at 15:30 Board Certified Radiologist. This report was verified electronically.
[2017-12-20 15:45] LABS: BICARBONATE 29.7 MEQ/L (21.0-32.0); BLOOD UREA NITROGEN 31 MG/DL (7-18); CALCIUM 8.7 MG/DL (8.5-10.1); CHLORIDE 98 MEQ/L (98-107); CREATININE 4.94 MG/DL (0.50-1.00); GLOMERULAR FILTRATION RATE 9 ML/MIN (>89); GLUCOSE,RANDOM 115 MG/DL (74-106); SODIUM (NA) 138 MEQ/L (136-145)
--- NOTE | 2017-12-20 16:55 | HHI.HP ---
HPI Service Family Medicine Primary Care Physician Unknown Admission Diagnosis Diagnoses: International Travel<30 Days: No Contact w/Intl Traveler<30days: No Known Affected Area: No History of Present Illness 47-year-old female with a past medical history including end-stage renal disease on hemodialysis Saturday/Saturday/Saturday,, diabetes mellitus with retinopathy, peripheral vascular disease, peripheral arterial disease, presents via EMS with altered mental status. She is well known to [place] with multiple admissions in the past. History severely limited secondary to mental state. History mostly obtained from brother and mother who are at the bedside. Her brother states that the patient was feeling well earlier today. She went to hemodialysis as normal. After hemodialysis her brother was pushing her in her wheelchair to get a black and mild cigar. At that time, the patient was complaining of some nausea but was otherwise well. After visiting the 711 she was feeling better. At the house her brother left her for 5 minutes and upon returning she was minimally responsive and "barely breathing." It is at that time they called EMS. Reportedly, the patient took "part of her friends 8 mg Dilaudid." She also reportedly took 2 extra strength Tylenol earlier in the day. The patient did not respond to Narcan administration 2. ABG is mostly within normal limits. Upon our interview at 1600, the patient is arousable and alert and oriented [address], but not to time. She reports that she is not suicidal. History limited secondary to mental state. She is very drowsy and in and out of wakefulness. (Andrew Real MD R3) Review of Systems ROS Limitations: Altered Mental Status, Poor Historian (Andrew Real MD R3) Past Family Social History Past Medical History Per chart review Diabetes mellitus Diabetic retinopathy with clinical blindness End-stage renal disease on hemodialysis Saturday/Saturday/Saturday secondary to hypertension, diabetes and AIN secondary to vancomycin Peripheral vascular disease Peripheral arterial disease Essential hypertension Dyslipidemia Hepatitis C History of calciphylaxis Chronic apixaban use History of splenic abscess History of calciphylaxis Coronary artery disease Depression Constipation Past Surgical History Per chart review Right below the knee amputation Cholecystectomy IR placement of perisplenic drain T&A Right upper extremity AV fistula Right nephrectomy Dental extraction Right oophorectomy Left lower extremity angioplasty Reported Medications Per the EMR: Reported Meds & Active Scripts Active Calcium Acetate (Calcium Acetate (Phosphate Bin) 667 Mg Cap 667 Mg PO TID 30 Days Norvasc (Amlodipine Besylate) 5 Mg Tab 5 Mg PO DAILY 30 Days Nicotine Patch (Nicotine) 7 Mg/24 Hr Patch 7 Mg T-DERMAL DAILY Levemir Inj (Insulin Detemir) 1,000 unit/ 10 ML Vial 5 Units SQ BID Do not mix with any other Insulin. Plavix (Clopidogrel Bisulfate) 75 Mg Tab 75 Mg PO DAILY Vitamin D3 (Cholecalciferol) 5,000 Unit Cap 5,000 Units PO DAILY Omeprazole 40 Mg Cap 40 Mg PO DAILY Reported Lisinopril 20 Mg Tab 20 Mg PO BID Eliquis (Apixaban) 2.5 Mg Tab 2.5 Mg PO BID Coreg (Carvedilol) 25 Mg Tab 25 Mg PO BID Sertraline (Sertraline HCl) 100 Mg Tab 100 Mg PO DAILY Nephro-Lory (B-Complex W/ C & Folic Acid) 1 Tab 1 Tab PO DAILY Colace (Docusate Sodium) 100 Mg Capsule 100 Mg BID (Andrew Real MD R3) Allergies: Coded Allergies: codeine (Verified Allergy, Severe, HYPERACTIVITY &ITCH, 07/11/17) iodine (Verified Allergy, Severe, TOPICAL/ITCH, 07/11/17) potassium iodide (Verified Allergy, Severe, TOPICAL/ITCH, 07/11/17) povidone-iodine (Verified Allergy, Severe, TOPICAL/ITCH, 07/11/17) sodium iodide (Verified Allergy, Severe, TOPICAL/ITCH, 07/11/17) sodium iodide (Verified Allergy, Severe, TOPICAL/ITCH, 07/11/17) iohexol (Verified Allergy, Intermediate, HIVES, 07/11/17) Pork/Porcine Containing Products (Verified Allergy, Unknown, 07/11/17) penicillin G (Verified Allergy, Unknown, 07/11/17) Active Ordered Medications Active Medications Sodium Chloride (NS Flush) 2 ml UNSCH PRN IV FLUSH; Start 12/20/17 at 14:30 Family History Per EMR review: Positive for leukemia, hypertension and diabetes Social History Occasionally black and mild cigar.. No alcohol use documented. Positive THC use. Positive remote IV drug use. (Andrew Real MD R3) Physical Exam Vital Signs Vital Signs Date Time Temp Pulse Resp B/P (MAP) Pulse Ox O2 Delivery O2 Flow Rate FiO2 12/20/17 15:01 74 10 189/81 (117) 92 Nasal Cannula 5.00 12/20/17 13:41 73 10 99 Nasal Cannula 5.00 12/20/17 13:39 74 6 189/81 (117) 99 Nasal Cannula 5.00 12/20/17 13:28 98.7 80 6 197/67 (110) 97 Physical Exam GENERAL: Tired appearing female who appears older than stated age, resting comfortably but minimally arousable from sleep. Physical exam limited secondary to mental state SKIN: Cool and dry. HEAD: Atraumatic. Normocephalic. No temporal or scalp tenderness. EYES: Pinpoint pupils reactive to light. Extraocular motions intact. No scleral icterus. No injection or drainage. ENT: Nose without bleeding, purulent drainage or septal hematoma. Throat without erythema, tonsillar hypertrophy or exudate. Uvula midline. Airway patent. NECK: Trachea midline. No JVD or lymphadenopathy. Supple, nontender, no meningeal signs. CARDIOVASCULAR: Regular rate and rhythm without murmurs, gallops, or rubs. RESPIRATORY: Clear to auscultation. Breath sounds equal bilaterally. No wheezes , rales, or rhonchi. GASTROINTESTINAL: Abdomen soft, non-tender, nondistended. No hepato-splenomegaly , or palpable masses. No guarding. MUSCULOSKELETAL: Right BKA, stump appears intact. 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 No joint tenderness, effusion, or edema noted. No left lower extremity calf tenderness. Dorsalis pedis 2+ pulse in left lower extremity NEUROLOGICAL: Alert but sleepy during exam. Awake and alert to person and place but not to time. Laboratory Laboratory Tests Test 12/20/17 13:59 12/20/17 14:30 Blood Gas Puncture Site LT RADIAL Blood Gas Patient Temperature 98.6 Blood Gas HCO3 28 Blood Gas Base Excess 3.5 Blood Gas Oxygen Saturation 90 Arterial Blood pH 7.41 Arterial Blood Partial Pressure CO2 45 Arterial Blood Partial Pressure O2 86 Arterial Blood Oxygen Content 13.8 Arterial Blood Carboxyhemoglobin 7.1 Arterial Blood Methemoglobin 0.4 Blood Gas Hemoglobin 10.8 Oxygen Delivery Device NASAL CANNULA Blood Gas Liter Flow 5 White Blood Count 5.8 Red Blood Count 3.83 Hemoglobin 11.4 Hematocrit 34.9 Mean Corpuscular Volume 91.2 Mean Corpuscular Hemoglobin 29.9 Mean Corpuscular Hemoglobin Concent 32.8 Red Cell Distribution Width 17.7 Platelet Count 258 Mean Platelet Volume 7.7 Neutrophils (%) (Auto) 77.5 Lymphocytes (%) (Auto) 10.3 Monocytes (%) (Auto) 6.8 Eosinophils (%) (Auto) 4.1 Basophils (%) (Auto) 1.3 Neutrophils # (Auto) 4.5 Lymphocytes # (Auto) 0.6 Monocytes # (Auto) 0.4 Eosinophils # (Auto) 0.2 Basophils # (Auto) 0.1 CBC Comment DIFF FINAL Differential Comment Blood Urea Nitrogen 31 Creatinine 4.94 Random Glucose 115 Calcium Level 8.7 Sodium Level 138 Potassium Level 4.5 Chloride Level 98 Carbon Dioxide Level 29.7 Anion Gap 10 Estimat Glomerular Filtration Rate 9 Thyroid Stimulating Hormone 3rd Gen 1.840 Ethyl Alcohol Level LESS THAN 3 (Andrew Real MD R3) Result Diagram: 12/20/17 1430 12/20/17 1430 Imaging Last Impressions Head CT 12/20/17 1430 Signed Impressions: Service Date/Time: Wednesday, December 20, 2017 15:11 - CONCLUSION: Normal examination for a patient of this age. No significant change has occurred. Arslan Carr MD (Andrew Real MD R3) Caprini VTE Risk Assessment Caprini VTE Risk Assessment: Mod/High Risk (score >= 2) Caprini Risk Assessment Model Point Value = 1 Point Value = 2 Point Value = 3 Point Value = 5 Age 41-60 Minor surgery BMI > 25 kg/m2 Swollen legs Varicose veins or History of unexplained or recurrent spontaneous Oral contraceptives or hormone replacement Sepsis (< 1 month) Serious lung disease, including pneumonia (< 1 month) Abnormal pulmonary function Acute myocardial infarction Congestive heart failure (< 1 month) History of inflammatory bowel disease Medical patient at bed rest Age 61-74 Arthroscopic surgery Major open surgery (> 45 min) Laparoscopic surgery (> 45 min) Malignancy Confined to bed (> 72 hours) Immobilizing plaster cast Central venous access Age >= 75 History of VTE Family history of VTE Factor V Leiden Prothrombin [id number] Lupus anticoagulant Anticardiolipin antibodies Elevated serum homocysteine Heparin-induced thrombocytopenia Other congenital or acquired thrombophilia Stroke (< 1 month) Elective arthroplasty Hip, pelvis, or leg fracture Acute spinal cord injury (< 1 month) Prophylaxis Regimen Total Risk Factor Score Risk Level Prophylaxis Regimen 0-1 Low Early ambulation 2 Moderate Order ONE of the following: *Sequential Compression Device (SCD) *Heparin 5000 units SQ BID 3-4 Higher Order ONE of the following medications: *Heparin 5000 units SQ TID *Enoxaparin/Lovenox 40 mg SQ daily (WT < 150 kg, CrCl > 30 mL/min) *Enoxaparin/Lovenox 30 mg SQ daily (WT < 150 kg, CrCl > 10-29 mL/min) *Enoxaparin/Lovenox 30 mg SQ BID (WT < 150 kg, CrCl > 30 mL/min) AND/OR *Sequential Compression Device (SCD) 5 or more Highest Order ONE of the following medications: *Heparin 5000 units SQ TID (Preferred with Epidurals) *Enoxaparin/Lovenox 40 mg SQ daily (WT < 150 kg, CrCl > 30 mL/min) *Enoxaparin/Lovenox 30 mg SQ daily (WT < 150 kg, CrCl > 10-29 mL/min) *Enoxaparin/Lovenox 30 mg SQ BID (WT < 150 kg, CrCl > 30 mL/min) AND *Sequential Compression Device (SCD) (Andrew Real MD R3) Assessment and Plan Assessment and Plan 47-year-old female with an extensive past medical history presents with altered mental status. Treatment as below. Code Status full Discussed Condition With Dr. Liliam Taylor (Andrew Real MD R3) Problem List: (1) Altered mental status ICD Codes: R41.82 - Altered mental status, unspecified Status: Acute Plan: Multiple potential etiologies including stroke versus hyperammonia versus toxicity versus bacteremia versus ACS versus other Labs ordered: Drug screen, ammonia, acetaminophen level, blood cultures, troponin MRI brain PT/ST Nursing to perform bedside swallow prior to initiating diet; if fails bedside swallow, make n.p.o. and notify physician (2) ESRD (end stage renal disease) on dialysis ICD Codes: N18.6 - End stage renal disease; Z99.2 - Dependence on renal dialysis Status: Chronic Plan: nephrology consult for dialysis management (3) Depression ICD Codes: F32.9 - Major depressive disorder, single episode, unspecified Status: Chronic Plan: continue sertraline (4) Diabetes ICD Codes: E11.9 - Type 2 diabetes mellitus without complications Status: Chronic Plan: Glucose 115 on admission Per chart, patient normally on Levemir 5 units twice daily We will cover with sliding scale initially. (5) PAD (peripheral artery disease) ICD Codes: I73.9 - Peripheral vascular disease, unspecified Status: Acute Plan: Continue Plavix 75 mg by mouth daily Permanent Comment: 10/2015 -Dr. Santillan - PAD - Rt calf/foot - angiogram done. 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 Right great toe not healing. Discoloration 4th toe. Dr. Garvey podiatry referral. Ultrasound 3 months for post procedure. If ok then Q6 months us with office visit. Last Edited By: Jude Ron on Oct 20, 2015 15:58 (6) Tobacco abuse ICD Codes: Z72.0 - Tobacco use Status: Chronic Plan: Clinical Faculty cessation when patient becomes more alert Consider nicotine patch (7) Hypertension ICD Codes: I10 - Essential (primary) hypertension Status: Chronic Plan: continue lisinopril, amlodipine, coreg (8) FEN/DVT PPX/GI PPX/Nursing Orders Status: Acute Plan: Fluids: We will place on light fluids if n.p.o. Electrolyte: Monitor and replace as needed Nutrition: Diabetic diet Prophylaxis: Continue Eliquis 2.5 mg p.o. twice daily (Andrew Real MD R3) Problem List: (1) Altered mental status ICD Codes: R41.82 - Altered mental status, unspecified Status: Acute Plan: Multiple potential etiologies including stroke versus hyperammonia versus toxicity versus bacteremia versus ACS versus other Labs ordered: Drug screen, ammonia, acetaminophen level, blood cultures, troponin MRI brain PT/ST Nursing to perform bedside swallow prior to initiating diet; if fails bedside swallow, make n.p.o. and notify physician (2) ESRD (end stage renal disease) on dialysis ICD Codes: N18.6 - End stage renal disease; Z99.2 - Dependence on renal dialysis Status: Chronic Plan: nephrology consult for dialysis management (3) Depression ICD Codes: F32.9 - Major depressive disorder, single episode, unspecified Status: Chronic Plan: continue sertraline (4) Diabetes ICD Codes: E11.9 - Type 2 diabetes mellitus without complications Status: Chronic Plan: Glucose 115 on admission Per chart, patient normally on Levemir 5 units twice daily We will cover with sliding scale initially. (5) PAD (peripheral artery disease) ICD Codes: I73.9 - Peripheral vascular disease, unspecified Status: Acute Plan: Continue Plavix 75 mg by mouth daily Permanent Comment: 10/2015 -Dr. Santillan - PAD - Rt calf/foot - angiogram done. 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 Right great toe not healing. Discoloration 4th toe. Dr. Garvey podiatry referral. Ultrasound 3 months for post procedure. If ok then Q6 months us with office visit. Last Edited By: Jude Ron on Oct 20, 2015 15:58 (6) Tobacco abuse ICD Codes: Z72.0 - Tobacco use Status: Chronic Plan: Clinical Faculty cessation when patient becomes more alert Consider nicotine patch (7) Hypertension ICD Codes: I10 - Essential (primary) hypertension Status: Chronic Plan: continue lisinopril, amlodipine, coreg (8) FEN/DVT PPX/GI PPX/Nursing Orders Status: Acute Plan: Fluids: We will place on light fluids if n.p.o. Electrolyte: Monitor and replace as needed Nutrition: Diabetic diet Prophylaxis: Continue Eliquis 2.5 mg p.o. twice daily See the residents documentation for details. I saw and evaluated the patient regarding the mejias portions of this evaluation and agree with the residents findings and plans as written. Parts of this note were created using [employer] voice recognition software program. While efforts were made to correct any mistakes made by this software, some mistakes, errors, and omissions may remain in the final note that were not caught when the note was originally created. Plan of care was discussed and agreed upon with the patient as specifically documented in the above note. An opportunity to ask questions with explanation was provided. Patient voiced understanding on all information reviewed and discussed. (Everardo Ricketts MD) Problem Qualifiers (1) Altered mental status: Qualified Codes: R41.82 - Altered mental status, unspecified (2) Depression: Qualified Codes: F32.9 - Major depressive disorder, single episode, unspecified (3) Diabetes: Qualified Codes: E11.22 - Type 2 diabetes mellitus with diabetic chronic kidney disease; N18.5 - Chronic kidney disease, stage 5; Z79.4 - senior living ( current) use of insulin (4) Hypertension: Qualified Codes: I10 - Essential (primary) hypertension Andrew Real MD R3 December 20, 2017 16:55 Everardo Ricketts MD December 23, 2017 12:13
[2017-12-20] MEDS ORDERED: MAGNESIUM HYDROXIDE SUSP 30 ML CUP PO PRN (17:00)
[2017-12-20] MEDS ORDERED: BISACODYL 10 MG SUPP RECTAL PRN (17:00)
[2017-12-20] MEDS ORDERED: NALOXONE HCL 0.4 MG/ML AMP IV PUSH PRN (17:00)
[2017-12-20] MEDS ORDERED: LACTULOSE SYRUP 20 GM/30 ML CUP PO PRN (17:00)
[2017-12-20] MEDS ORDERED: SENNOSIDES 8.6 MG TAB PO PRN (17:00)
[2017-12-20] MEDS ORDERED: HEPARIN SODIUM - SQ 10,000 UNITS/ML VIAL SQ SCH (17:00)
[2017-12-20] MEDS ORDERED: METOCLOPRAMIDE HCL 10 MG/2 ML VIAL IV PUSH PRN (17:00)
[2017-12-20 18:44] LABS: ACETAMINOPHEN LESS THAN 2.0 MCG/ML (10.0-30.0); TROPONIN I LESS THAN 0.02 NG/ML (0.02-0.05)
[2017-12-20] MEDS: CALCIUM ACETATE 667 MG CAP PO SCH (18:47)
--- NOTE | 2017-12-20 22:02 | RADRPT ---
EXAM DATE/TIME: 12/20/2017 21:20 [facility] COMPARISON: MRI BRAIN W/O CONTRAST, June 22, 2017, 14:51. INDICATIONS : Stroke. MEDICAL HISTORY : Diabetes mellitus type 2. Hypertension. SURGICAL HISTORY : Cholecystectomy. Rt BKA, Perisplenic drain, Right oophorectomy, Left lower angioplasty. ENCOUNTER: Initial ACUITY: 1 day PAIN SCORE: 3/10 LOCATION: Bilateral cranial TECHNIQUE: Multiplanar, multisequence MRI of the brain was performed without contrast. FINDINGS: CEREBRUM: The ventricles are normal for age. No evidence of midline shift, mass lesion, hemorrhage or acute in farction. No extraaxial fluid collections are seen. The pituitary gland and suprasellar cistern are normal in configuration. WHITE MATTER: No significant signal abnormalities are seen in the white matter. POSTERIOR FOSSA: The cerebellum and brainstem are intact. The 4th ventricle is midline. The cerebellopontine angle is unremarkable. The cerebellar tonsils are normal in position. DIFFUSION IMAGING: No focal areas of restricted diffusion are seen. No evidence of acute infarction. EXTRACRANIAL: The visualized portions of the orbits and paranasal sinuses are unremarkable. CONCLUSION: Normal examination. Mark Sánchez Jr., MD on December 20, 2017 at 21:58 Board Certified Radiologist. This report was verified electronically.
[2017-12-20] MEDS: DOCUSATE SODIUM 50 MG/SENNA 8.6 MG TAB PO SCH (22:14)
[2017-12-20] MEDS: SODIUM CHLORIDE 0.9% FLUSH 10 ML FLUSH IV FLUSH SCH (22:14)
[2017-12-20] MEDS: APIXABAN 2.5 MG TABLET PO SCH (22:14)
[2017-12-20] MEDS: LISINOPRIL 20 MG TAB PO SCH (22:15)
[2017-12-20] MEDS: CARVEDILOL 12.5 MG TAB PO SCH (22:15)
[2017-12-21] VITALS (12 sets, daily range): BP systolic 115–156; BP diastolic 59–70; PULSE 57–73; RESP 18–20; TEMP 97.9–98.9; O2SAT 92–95
[2017-12-21 06:07] LABS: BASOPHIL # 0.1 TH/MM3 (0-0.2); BASOPHIL % 1.4 % (0.0-2.0); EOSINOPHIL # 0.2 TH/MM3 (0-0.4); EOSINOPHIL % 3.6 % (0.0-4.0); HEMATOCRIT 34.5 % (35.0-46.0); HEMOGLOBIN 11.2 GM/DL (11.6-15.3); LYMPH % 15.5 % (9.0-44.0); LYMPHOCYTE # 0.9 TH/MM3 (1.0-4.8); MEAN CELL VOLUME 93.9 FL (80.0-100.0); MEAN CORPUSCULAR HEMOGLOBIN 30.6 PG (27.0-34.0); MEAN CORPUSCULAR HGB CONC 32.5 % (32.0-36.0); MEAN PLATELET VOLUME 7.8 FL (7.0-11.0); MONO % 11.1 % (0.0-8.0); MONOCYTE # 0.6 TH/MM3 (0-0.9); NEUT % 68.4 % (16.0-70.0); PLATELET COUNT 261 TH/MM3 (150-450); RED BLOOD COUNT 3.68 MIL/MM3 (4.00-5.30); RED CELL DISTRIBUTION WIDTH 17.5 % (11.6-17.2); WHITE BLOOD COUNT 5.8 TH/MM3 (4.0-11.0)
[2017-12-21 06:34] LABS: ALBUMIN 3.6 GM/DL (3.4-5.0); ALKALINE PHOSPHATASE 88 U/L (45-117); ALT (GPT) 15 U/L (10-53); AST (GOT) 11 U/L (15-37); BLOOD UREA NITROGEN 39 MG/DL (7-18); CALCIUM 8.9 MG/DL (8.5-10.1); CHLORIDE 99 MEQ/L (98-107); CREATININE 6.27 MG/DL (0.50-1.00); GLOMERULAR FILTRATION RATE 7 ML/MIN (>89); GLUCOSE,RANDOM 73 MG/DL (74-106); SODIUM (NA) 138 MEQ/L (136-145); TOTAL BILIRUBIN ADULT 0.6 MG/DL (0.2-1.0); TOTAL PROTEIN 7.9 GM/DL (6.4-8.2)
[2017-12-21] MEDS ORDERED: GLUCAGON 1 MG/ML VIAL OTHER PRN (07:15)
[2017-12-21] MEDS ORDERED: DEXTROSE 50% IN WATER 50 ML VIAL(D50) IV PUSH PRN (07:15)
[2017-12-21] MEDS ORDERED: SODIUM POLYSTYRENE SULFONATE SUSP 15 GM/60 ML CUP PO ONE (07:45)
[2017-12-21] MEDS: INSULIN ASPART SUPPLEMENTAL SCALE SQ SCH ×4 (08:00→21:00)
[2017-12-21] MEDS ORDERED: SERTRALINE HCL 100 MG TAB PO SCH (09:00)
[2017-12-21] MEDS: CARVEDILOL 12.5 MG TAB PO SCH ×2 (09:32→22:36)
[2017-12-21] MEDS: amLODIPine BESYLATE 5 MG TAB PO SCH (09:32)
[2017-12-21] MEDS: PANTOPRAZOLE SOD 40 MG DELAYED RELEASE TAB PO SCH (09:32)
[2017-12-21] MEDS: CALCIUM ACETATE 667 MG CAP PO SCH ×3 (09:33→18:24)
[2017-12-21] MEDS: APIXABAN 2.5 MG TABLET PO SCH ×2 (09:33→22:37)
[2017-12-21] MEDS: DOCUSATE SODIUM 50 MG/SENNA 8.6 MG TAB PO SCH ×2 (09:33→21:00)
[2017-12-21] MEDS: LISINOPRIL 20 MG TAB PO SCH ×2 (09:33→22:37)
[2017-12-21] MEDS: CLOPIDOGREL 75 MG TAB PO SCH (09:34)
[2017-12-21] MEDS: SODIUM CHLORIDE 0.9% FLUSH 10 ML FLUSH IV FLUSH SCH ×2 (09:35→22:37)
--- NOTE | 2017-12-21 09:55 | HHI.FPPN ---
Subjective Remarks No acute events overnight. Patient continues to endorse diarrhea and abdominal cramping. Otherwise she is much more alert with no acute complaints today. She does state that she has chronic pain for which she often takes unprescribed narcotics for. She denies any suicidal or homicidal ideations, but does feel overwhelmed by her chronic medical conditions. Denies chest pain or shortness of breath. (Vicente Taylor MD R1) Objective Vitals Vital Signs Date Time Temp Pulse Resp B/P (MAP) Pulse Ox O2 Delivery O2 Flow Rate FiO2 12/21/17 04:00 62 12/21/17 03:52 98.6 61 18 123/60 (81) 92 12/21/17 00:00 57 12/20/17 23:05 97.7 59 18 120/57 (78) 98 12/20/17 20:00 67 12/20/17 19:52 97.2 65 18 135/63 (87) 95 12/20/17 17:50 12/20/17 17:50 97.7 63 18 142/65 (90) 97 12/20/17 17:00 64 14 115/49 (71) 100 Nasal Cannula 5.00 12/20/17 15:01 74 10 189/81 (117) 92 Nasal Cannula 5.00 12/20/17 13:41 73 10 99 Nasal Cannula 5.00 12/20/17 13:39 74 6 189/81 (117) 99 Nasal Cannula 5.00 12/20/17 13:28 98.7 80 6 197/67 (110) 97 I/O 12/20/17 12/20/17 12/20/17 12/21/17 12/21/17 12/21/17 07:00 15:00 23:00 07:00 15:00 23:00 Intake Total 120 ml Output Total 0 ml Balance 120 ml Intake Oral 120 ml Output Urine Total 0 ml # Bowel Movements 0 (Vicente Taylor MD R1) Result Diagram: 12/21/17 0455 12/21/17 0455 Imaging Last [address] 12/20/17 1430 Signed Impressions: Service Date/Time: Wednesday, December 20, 2017 15:11 - CONCLUSION: Normal examination for a patient of this age. No significant change has occurred. Arslan Carr MD Brain MRI 12/20/17 0000 Signed Impressions: Service Date/Time: Wednesday, December 20, 2017 21:20 - CONCLUSION: Normal examination. Mark Sánchez Jr., MD Objective Remarks GENERAL: Female who appears older than stated age, resting comfortably and answering questions appropriately. SKIN: Cool and dry. HEAD: Atraumatic. Normocephalic. No temporal or scalp tenderness. CARDIOVASCULAR: Regular rate and rhythm without murmurs, gallops, or rubs. RESPIRATORY: Clear to auscultation. Breath sounds equal bilaterally. No wheezes , rales, or rhonchi. GASTROINTESTINAL: Abdomen soft, non-tender, nondistended. No hepato-splenomegaly , or palpable masses. No guarding. MUSCULOSKELETAL: Right BKA, stump appears intact. 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 Sensation and motor function intact. No joint tenderness, effusion, or edema noted. No left lower extremity calf tenderness. Dorsalis pedis 2+ pulse in left lower extremity NEUROLOGICAL: Alert and oriented to person and place but not to time. (Vicente Taylor MD R1) A/P Assessment and Plan 47-year-old female with an extensive past medical history presents with altered mental status. Treatment as below. Discharge Planning Possibly tomorrow - should be discharged to home (Vicente Taylor MD R1) Problem List: (1) Altered mental status ICD Codes: R41.82 - Altered mental status, unspecified Status: Acute Plan: Multiple potential etiologies including stroke versus hyperammonia versus toxicity versus bacteremia versus ACS versus other Labs: ammonia, acetaminophen level, troponin normal Blood cultures pending MRI brain negative on admission PT/ST (2) ESRD (end stage renal disease) on dialysis ICD Codes: N18.6 - End stage renal disease; Z99.2 - Dependence on renal dialysis Status: Chronic Plan: nephrology consult for dialysis management Noted to be hyperkalemic on 12/21 with a potassium of 5.9 Ordered Kayexalate 1. EKG pending (3) Depression ICD Codes: F32.9 - Major depressive disorder, single episode, unspecified Status: Chronic Plan: continue sertraline Patient reporting symptoms of depression, no suicidal ideation or intent to hurt herself. She also has chronic pain for which she takes unprescribed opiates for. Is open to discussing fibromyalgia treatment Consulting psychiatry on 12/21 (4) Diarrhea ICD Codes: R19.7 - Diarrhea, unspecified Plan: Patient with diarrhea and abdominal cramping. Prior history of C. difficile infection We will start Flagyl 500 mg p.o. every 8 hours. C. difficile and stool ova/ parasite studies pending (5) Diabetes ICD Codes: E11.9 - Type 2 diabetes mellitus without complications Status: Chronic Plan: Glucose 115 on admission Per chart, patient normally on Levemir 5 units twice daily Patient mildly hypoglycemic down to 65 on 12/21 Ordering Accu-Cheks, hypoglycemia protocol, sliding scale insulin (6) CHF (congestive heart failure) ICD Codes: I50.9 - Heart failure, unspecified Plan: Known history of CHF BNP on admission 495 No signs of fluid overload on physical exam Echocardiogram pending (7) PAD (peripheral artery disease) ICD Codes: I73.9 - Peripheral vascular disease, unspecified Status: Acute Plan: Continue Plavix 75 mg by mouth daily Permanent Comment: 10/2015 -Dr. Santillan - PAD - Rt calf/foot - angiogram done. Chronic total occlusion of AT with right AT [employer] on 09/23/15. Right great toe not healing. Discoloration 4th toe. Dr. Garvey podiatry referral. Ultrasound 3 months for post procedure. If ok then Q6 months us with office visit. Last Edited By: Jude Ron on Oct 20, 2015 15:58 (8) Tobacco abuse ICD Codes: Z72.0 - Tobacco use Status: Chronic Plan: Heel Seat Laster cessation when patient becomes more alert Consider nicotine patch (9) Hypertension ICD Codes: I10 - Essential (primary) hypertension Status: Chronic Plan: continue lisinopril, amlodipine, coreg (10) FEN/DVT PPX/GI PPX/Nursing Orders Status: Acute Plan: Fluids: No IV fluids for now Electrolyte: Monitor and replace as needed Nutrition: Diabetic diet Prophylaxis: Continue Eliquis 2.5 mg p.o. twice daily (Vicente Taylor MD R1) Problem List: (1) Altered mental status ICD Codes: R41.82 - Altered mental status, unspecified Status: Acute Plan: Multiple potential etiologies including stroke versus hyperammonia versus toxicity versus bacteremia versus ACS versus other Labs: ammonia, acetaminophen level, troponin normal Blood cultures pending MRI brain negative on admission PT/ST (2) ESRD (end stage renal disease) on dialysis ICD Codes: N18.6 - End stage renal disease; Z99.2 - Dependence on renal dialysis Status: Chronic Plan: nephrology consult for dialysis management Noted to be hyperkalemic on 12/21 with a potassium of 5.9 Ordered Kayexalate 1. EKG pending (3) Depression ICD Codes: F32.9 - Major depressive disorder, single episode, unspecified Status: Chronic Plan: continue sertraline Patient reporting symptoms of depression, no suicidal ideation or intent to hurt herself. She also has chronic pain for which she takes unprescribed opiates for. Is open to discussing fibromyalgia treatment Consulting psychiatry on 12/21 (4) Diarrhea ICD Codes: R19.7 - Diarrhea, unspecified Plan: Patient with diarrhea and abdominal cramping. Prior history of C. difficile infection We will start Flagyl 500 mg p.o. every 8 hours. C. difficile and stool ova/ parasite studies pending (5) Diabetes ICD Codes: E11.9 - Type 2 diabetes mellitus without complications Status: Chronic Plan: Glucose 115 on admission Per chart, patient normally on Levemir 5 units twice daily Patient mildly hypoglycemic down to 65 on 12/21 Ordering Accu-Cheks, hypoglycemia protocol, sliding scale insulin (6) CHF (congestive heart failure) ICD Codes: I50.9 - Heart failure, unspecified Plan: Known history of CHF BNP on admission 495 No signs of fluid overload on physical exam Echocardiogram pending (7) PAD (peripheral artery disease) ICD Codes: I73.9 - Peripheral vascular disease, unspecified Status: Acute Plan: Continue Plavix 75 mg by mouth daily Permanent Comment: 10/2015 -Dr. Santillan - PAD - Rt calf/foot - angiogram done. Chronic total occlusion of AT with right AT [employer] on 09/23/15. Right great toe not healing. Discoloration 4th toe. Dr. Garvey podiatry referral. Ultrasound 3 months for post procedure. If ok then Q6 months us with office visit. Last Edited By: Jude Ron on Oct 20, 2015 15:58 (8) Tobacco abuse ICD Codes: Z72.0 - Tobacco use Status: Chronic Plan: Heel Seat Laster cessation when patient becomes more alert Consider nicotine patch (9) Hypertension ICD Codes: I10 - Essential (primary) hypertension Status: Chronic Plan: continue lisinopril, amlodipine, coreg (10) FEN/DVT PPX/GI PPX/Nursing Orders Status: Acute Plan: Fluids: No IV fluids for now Electrolyte: Monitor and replace as needed Nutrition: Diabetic diet Prophylaxis: Continue Eliquis 2.5 mg p.o. twice daily See the residents documentation for details. I saw and evaluated the patient regarding the mejias portions of this evaluation and agree with the residents findings and plans as written. Parts of this note were created using [employer] voice recognition software program. While efforts were made to correct any mistakes made by this software, some mistakes, errors, and omissions may remain in the final note that were not caught when the note was originally created. Plan of care was discussed and agreed upon with the patient as specifically documented in the above note. An opportunity to ask questions with explanation was provided. Patient voiced understanding on all information reviewed and discussed. (Everardo Ricketts MD) Problem Qualifiers (1) Altered mental status: Qualified Codes: R41.82 - Altered mental status, unspecified (2) Depression: Qualified Codes: F32.9 - Major depressive disorder, single episode, unspecified (3) Diabetes: Qualified Codes: E11.22 - Type 2 diabetes mellitus with diabetic chronic kidney disease; N18.5 - Chronic kidney disease, stage 5; Z79.4 - custodial ( current) use of insulin (4) Hypertension: Qualified Codes: I10 - Essential (primary) hypertension Vicente Taylor MD R1 December 21, 2017 09:55 Everardo Ricketts MD December 23, 2017 11:26
[2017-12-21] MEDS ORDERED: SODIUM CHLOR 0.9% 1000 ML INJ 1,000 ML IV PRN (11:30)
[2017-12-21] MEDS ORDERED: MANNITOL 12.5 GM/50 ML VIAL IV PRN (11:30)
[2017-12-21] MEDS ORDERED: SODIUM CHLORIDE 0.9% FLUSH 10 ML FLUSH IV FLUSH PRN (11:30)
[2017-12-21] MEDS ORDERED: NITROGLYCERIN 0.4 MG SL 25 TABS/BTL SL PRN (11:30)
[2017-12-21] MEDS ORDERED: GELATIN 12 MM/7 MM FOAM TOP PRN (11:30)
[2017-12-21] MEDS ORDERED: HEPARIN SODIUM - IV 10,000 UNITS/10 ML VIAL IV FLUSH PRN (11:30)
[2017-12-21] MEDS ORDERED: ACETAMINOPHEN 325 MG TAB PO PRN (11:30)
[2017-12-21] MEDS ORDERED: diphenhydrAMINE HCL 25 MG CAP PO PRN (11:30)
[2017-12-21] MEDS ORDERED: HEPARIN SODIUM - IV 10,000 UNITS/10 ML VIAL PRN (11:30)
[2017-12-21] MEDS ORDERED: SODIUM CHLOR 0.9% 1000 ML INJ 1,000 ML OTHER PRN ×2 (11:30)
[2017-12-21] MEDS ORDERED: cloNIDine HCL 0.1 MG TAB PO PRN (11:30)
[2017-12-21] MEDS ORDERED: GENTAMICIN SULFATE 20 MG/2 ML VIAL OTHER PRN (11:30)
--- NOTE | 2017-12-21 11:48 | PD.CONS ---
HPI Service Nephrology Consult Requested By Dr. Real Reason for Consult End Stage renal disease on hemodialysis Primary Care Physician Unknown History of Present Illness Patient is a 47-year-old female with a past medical history including end-stage renal disease on hemodialysis Saturday/Saturday/Saturday, diabetes mellitus with retinopathy, peripheral vascular disease, peripheral arterial disease,essential hypertension, dyslipidemia, Hepatitis C, History of calciphylaxis, coronary artery disease, and depression. Presents to emergency room with altered mental status. Nephrology is consulted for management of end stage renal disease on hemodialysis. Last hemodialysis was done yesterday with right arm AVF. Dr. [facility] Patient was noted to be hyperkalemic at 5.9 and Kayexalate was given. (Raquel Cerda) Past Family Social History Allergies: Coded Allergies: codeine (Verified Allergy, Severe, HYPERACTIVITY &ITCH, 07/11/17) iodine (Verified Allergy, Severe, TOPICAL/ITCH, 07/11/17) potassium iodide (Verified Allergy, Severe, TOPICAL/ITCH, 07/11/17) povidone-iodine (Verified Allergy, Severe, TOPICAL/ITCH, 07/11/17) sodium iodide (Verified Allergy, Severe, TOPICAL/ITCH, 07/11/17) sodium iodide (Verified Allergy, Severe, TOPICAL/ITCH, 07/11/17) iohexol (Verified Allergy, Intermediate, HIVES, 07/11/17) Pork/Porcine Containing Products (Verified Allergy, Unknown, 07/11/17) penicillin G (Verified Allergy, Unknown, 07/11/17) Past Medical History Diabetes mellitus Diabetic retinopathy with clinical blindness End-stage renal disease on hemodialysis Saturday/Saturday/Saturday Peripheral vascular disease Peripheral arterial disease Essential hypertension Dyslipidemia Hepatitis C History of calciphylaxis Chronic apixaban use History of splenic abscess History of calciphylaxis Coronary artery disease Depression Past Surgical History Right below the knee amputation Cholecystectomy IR placement of perisplenic drain T&A Right upper extremity AV fistula Right nephrectomy Dental extraction Right oophorectomy Left lower extremity angioplasty Active Ordered Medications Current Medications Medications (Trade) Dose Ordered Sig/Jen Route Start Time Stop Time Status Last Admin (NS Flush) 2 ml UNSCH PRN IV FLUSH 12/20/17 17:00 (NS Flush) 2 ml BID IV FLUSH 12/20/17 21:00 12/21/17 09:35 (Reglan Inj) 5 mg Q6H PRN IV PUSH 12/20/17 17:00 (Narcan Inj) 0.4 mg UNSCH PRN IV PUSH 12/20/17 17:00 (Areli-Colace) 1 tab BID PO 12/20/17 21:00 12/21/17 09:33 (Milk Of Magnesia Liq) 30 ml Q12H PRN PO 12/20/17 17:00 (Senokot) 17.2 mg Q12H PRN PO 12/20/17 17:00 (Dulcolax Supp) 10 mg DAILY PRN RECTAL 12/20/17 17:00 (Lactulose Liq) 30 ml DAILY PRN PO 12/20/17 17:00 (Norvasc) 5 mg DAILY PO 12/21/17 09:00 12/21/17 09:32 (Eliquis) 2.5 mg BID PO 12/20/17 21:00 12/21/17 09:33 (Phoslo) 667 mg TID PO 12/20/17 18:00 12/21/17 09:33 (Coreg) 25 mg BID PO 12/20/17 21:00 12/21/17 09:32 (Plavix) 75 mg DAILY PO 12/21/17 09:00 12/21/17 09:34 (Prinivil) 20 mg BID PO 12/20/17 21:00 12/21/17 09:33 (Zoloft) 100 mg DAILY PO 12/21/17 09:00 12/21/17 09:32 (Protonix) 40 mg DAILY PO 12/21/17 09:00 12/21/17 09:32 (D50w (Vial) Inj) 50 ml UNSCH PRN IV PUSH 12/21/17 07:15 (Glucagon Inj) 1 mg UNSCH PRN OTHER 12/21/17 07:15 (NovoLOG SUPPLEMENTAL SCALE) 1 ACHS SLIDING SCALE SQ 12/21/17 08:00 (Flagyl) 500 mg Q8H PO 12/21/17 10:00 Family History Positive for leukemia, hypertension and diabetes Social History Smokes over 1 pack daily Smoke marijuana regularly Uses narcotics that are not prescribed to patient Denies alcohol use (Raquel Cerda) Physical Exam Vital Signs Vital Signs Date Time Temp Pulse Resp B/P (MAP) Pulse Ox O2 Delivery O2 Flow Rate FiO2 12/21/17 08:11 98.9 61 20 115/59 (77) 92 12/21/17 04:00 62 12/21/17 03:52 98.6 61 18 123/60 (81) 92 12/21/17 00:00 57 12/20/17 23:05 97.7 59 18 120/57 (78) 98 12/20/17 20:00 67 12/20/17 19:52 97.2 65 18 135/63 (87) 95 12/20/17 17:50 12/20/17 17:50 97.7 63 18 142/65 (90) 97 12/20/17 17:00 64 14 115/49 (71) 100 Nasal Cannula 5.00 12/20/17 15:01 74 10 189/81 (117) 92 Nasal Cannula 5.00 12/20/17 13:41 73 10 99 Nasal Cannula 5.00 12/20/17 13:39 74 6 189/81 (117) 99 Nasal Cannula 5.00 12/20/17 13:28 98.7 80 6 197/67 (110) 97 Physical Exam GENERAL: Falling asleep during conversation SKIN: Warm and dry. AVF in right upper arm HEAD: Normocephalic. EYES: No scleral icterus. No injection or drainage. NECK: Supple, trachea midline. No JVD or lymphadenopathy. CARDIOVASCULAR: Regular rate and rhythm without murmurs, gallops, or rubs. RESPIRATORY: Breath sounds equal bilaterally. No accessory muscle use. GASTROINTESTINAL: Abdomen soft, large, and tender on palpation MUSCULOSKELETAL: No cyanosis, or edema. BACK: Nontender without obvious deformity. No CVA tenderness. Laboratory Laboratory Tests Test 12/20/17 13:59 12/20/17 14:30 12/20/17 17:20 12/21/17 04:55 Blood Gas Puncture Site LT RADIAL Blood Gas Patient Temperature 98.6 Blood Gas HCO3 28 Blood Gas Base Excess 3.5 Blood Gas Oxygen Saturation 90 Arterial Blood pH 7.41 Arterial Blood Partial Pressure CO2 45 Arterial Blood Partial Pressure O2 86 Arterial Blood Oxygen Content 13.8 Arterial Blood Carboxyhemoglobin 7.1 Arterial Blood Methemoglobin 0.4 Blood Gas Hemoglobin 10.8 Oxygen Delivery Device NASAL CANNULA Blood Gas Liter Flow 5 White Blood Count 5.8 5.8 Red Blood Count 3.83 3.68 Hemoglobin 11.4 11.2 Hematocrit 34.9 34.5 Mean Corpuscular Volume 91.2 93.9 Mean Corpuscular Hemoglobin 29.9 30.6 Mean Corpuscular Hemoglobin Concent 32.8 32.5 Red Cell Distribution Width 17.7 17.5 Platelet Count 258 261 Mean Platelet Volume 7.7 7.8 Neutrophils (%) (Auto) 77.5 68.4 Lymphocytes (%) (Auto) 10.3 15.5 Monocytes (%) (Auto) 6.8 11.1 Eosinophils (%) (Auto) 4.1 3.6 Basophils (%) (Auto) 1.3 1.4 Neutrophils # (Auto) 4.5 4.0 Lymphocytes # (Auto) 0.6 0.9 Monocytes # (Auto) 0.4 0.6 Eosinophils # (Auto) 0.2 0.2 Basophils # (Auto) 0.1 0.1 CBC Comment DIFF FINAL DIFF FINAL Differential Comment Blood Urea Nitrogen 31 39 Creatinine 4.94 6.27 Random Glucose 115 73 Calcium Level 8.7 8.9 Sodium Level 138 138 Potassium Level 4.5 5.9 Chloride Level 98 99 Carbon Dioxide Level 29.7 29.0 Anion Gap 10 10 Estimat Glomerular Filtration Rate 9 7 B-Type Natriuretic Peptide 495 Thyroid Stimulating Hormone 3rd Gen 1.840 Ethyl Alcohol Level LESS THAN 3 Troponin I LESS THAN 0.02 Acetaminophen Level LESS THAN 2.0 Total Protein 7.9 Albumin 3.6 Alkaline Phosphatase 88 Aspartate Amino Transf (AST/SGOT) 11 Alanine Aminotransferase (ALT/SGPT) 15 Total Bilirubin 0.6 Date/Time Source Procedure Growth Status 12/20/17 17:35 Blood Peripheral Aerobic Blood Culture - Preliminary NO GROWTH IN 1 DAY Resulted 12/20/17 17:35 Blood Peripheral Anaerobic Blood Culture - Preliminary NO GROWTH IN 1 DAY Resulted (Raquel Cerda) Result Diagram: 12/21/17 0455 12/21/17 0455 Imaging Last Impressions Head CT 12/20/17 1430 Signed Impressions: Service Date/Time: Wednesday, December 20, 2017 15:11 - CONCLUSION: Normal examination for a patient of this age. No significant change has occurred. Arslan Carr MD Brain MRI 12/20/17 0000 Signed Impressions: Service Date/Time: Wednesday, December 20, 2017 21:20 - CONCLUSION: Normal examination. Mark Sánchez Jr., MD (Raquel Cerda) Assessment and Plan Problem List: (1) ESRD (end stage renal disease) on dialysis ICD Codes: N18.6 - End stage renal disease; Z99.2 - Dependence on renal dialysis Status: Chronic Plan: End stage renal disease on hemodialysis. Last hemodialysis was done yesterday with right arm AVF. AVF with good thrill and bruit Plan Will continue with dialysis on scheduled days Saturday, Saturday, and Saturday Hyperkalemic at 5.9 and Kayexalate was given. Will recheck at 1600 Continue Phoslo Avoid IVF administration Labs in AM (2) Diabetes ICD Codes: E11.9 - Type 2 diabetes mellitus without complications Status: Chronic Plan: Maintain blood sugar between 14O to 180 mg/dl (3) Hypertension ICD Codes: I10 - Essential (primary) hypertension Status: Chronic Plan: Will monitor (Raquel Cerda) Problem List: (1) ESRD (end stage renal disease) on dialysis ICD Codes: N18.6 - End stage renal disease; Z99.2 - Dependence on renal dialysis Status: Chronic Plan: End stage renal disease on hemodialysis. Last hemodialysis was done yesterday with right arm AVF. AVF with good thrill and bruit Plan Will continue with dialysis on scheduled days Saturday, Saturday, and Saturday Hyperkalemic at 5.9 and Kayexalate was given. Will recheck at 1600 Continue Phoslo Avoid IVF administration Labs in AM. Patient seen and examined, agree with above, Repeat K is 5.5, told to restrict K in diet. 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
[2017-12-21] MEDS: metroNIDAZOLE 500 MG TAB PO SCH ×2 (13:27→18:24)
[2017-12-21] MEDS: ONDANSETRON HCL 4 MG/2 ML VIAL IV PUSH PRN (16:38)
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
--- NOTE | 2017-12-21 18:07 | EKG ---
Date Performed: 12/21/2017 Time Performed: 11:12:30 PTAGE: 47 years EKG: Sinus rhythm . Right axis deviation Lateral ST-T changes are nonspecific Borderline ECG PREVIOUS TRACING : 12/20/2017 21.02 Compared to previous tracing, R axis present DOCTOR: Milana Middleton Interpretating Date/Time 12/21/2017 18:05:52
--- NOTE | 2017-12-21 18:22 | EKG ---
Date Performed: 12/20/2017 Time Performed: 21:02:17 PTAGE: 47 years EKG: Sinus rhythm PROLONGED QT INTERVAL ABNORMAL ECG PREVIOUS TRACING : 10/08/2017 16.20 Since the previous tracing, no significant change noted DOCTOR: Milana Middleton Interpretating Date/Time 12/21/2017 18:21:41
[2017-12-22] VITALS (13 sets, daily range): BP systolic 114–144; BP diastolic 56–70; PULSE 63–74; RESP 16–18; TEMP 97.1–98.9; O2SAT 92–96
[2017-12-22] MEDS: metroNIDAZOLE 500 MG TAB PO SCH (01:10)
[2017-12-22 05:34] LABS: AUTOMATED NEUTROPHIL # 4.1 TH/MM3 (1.8-7.7); BASOPHIL # 0.1 TH/MM3 (0-0.2); BASOPHIL % 1.3 % (0.0-2.0); EOSINOPHIL # 0.1 TH/MM3 (0-0.4); EOSINOPHIL % 1.8 % (0.0-4.0); HEMATOCRIT 34.9 % (35.0-46.0); HEMOGLOBIN 11.5 GM/DL (11.6-15.3); LYMPHOCYTE # 0.9 TH/MM3 (1.0-4.8); MEAN CELL VOLUME 93.7 FL (80.0-100.0); MEAN CORPUSCULAR HEMOGLOBIN 30.9 PG (27.0-34.0); MONO % 9.9 % (0.0-8.0); MONOCYTE # 0.6 TH/MM3 (0-0.9); PLATELET COUNT 244 TH/MM3 (150-450); RED BLOOD COUNT 3.73 MIL/MM3 (4.00-5.30); RED CELL DISTRIBUTION WIDTH 17.3 % (11.6-17.2); WHITE BLOOD COUNT 5.8 TH/MM3 (4.0-11.0)
[2017-12-22 06:18] LABS: BICARBONATE 27.8 MEQ/L (21.0-32.0); CALCIUM 8.8 MG/DL (8.5-10.1); CREATININE 7.74 MG/DL (0.50-1.00)
[2017-12-22] MEDS: INSULIN ASPART SUPPLEMENTAL SCALE SQ SCH ×4 (08:00→21:00)
[2017-12-22] MEDS: PANTOPRAZOLE SOD 40 MG DELAYED RELEASE TAB PO SCH (09:14)
[2017-12-22] MEDS: CALCIUM ACETATE 667 MG CAP PO SCH ×3 (09:14→21:17)
[2017-12-22] MEDS: CARVEDILOL 12.5 MG TAB PO SCH ×2 (09:14→21:17)
[2017-12-22] MEDS: amLODIPine BESYLATE 5 MG TAB PO SCH (09:14)
[2017-12-22] MEDS: CLOPIDOGREL 75 MG TAB PO SCH (09:14)
[2017-12-22] MEDS: LISINOPRIL 20 MG TAB PO SCH ×2 (09:15→21:17)
[2017-12-22] MEDS: DOCUSATE SODIUM 50 MG/SENNA 8.6 MG TAB PO SCH ×2 (09:15→21:00)
[2017-12-22] MEDS: APIXABAN 2.5 MG TABLET PO SCH ×2 (09:15→21:17)
[2017-12-22] MEDS: SERTRALINE HCL 100 MG TAB PO SCH (09:15)
[2017-12-22] MEDS: SODIUM CHLORIDE 0.9% FLUSH 10 ML FLUSH IV FLUSH SCH ×2 (09:16→21:18)
[2017-12-22] MEDS ORDERED: CALCIUM GLUCONATE INJ 1 GM in SODIUM CHLORIDE 0.9% INJ 100 ML IV ONE (12:00)
--- NOTE | 2017-12-22 12:12 | HHI.NPPN ---
Subjective General Problems: Anemia Renal Failure: End Stage Renal Disease History of Present Illness Patient is a 47-year-old female with a past medical history including end-stage renal disease on hemodialysis Saturday/Saturday/Saturday, diabetes mellitus with retinopathy, peripheral vascular disease, peripheral arterial disease,essential hypertension, dyslipidemia, Hepatitis C, History of calciphylaxis, coronary artery disease, and depression. Presents to emergency room with altered mental status. Nephrology is consulted for management of end stage renal disease on hemodialysis. Last hemodialysis was done yesterday with right arm AVF. Dr. Arias is didactic instructor. Patient was noted to be hyperkalemic at 5.9 and Kayexalate was given. Additional Remarks Resting comfortably, nephew at bedside. Potassium is elevated at 6.3 today. (Raquel Cerda) Objective Data Data Vital Signs Date Time Temp Pulse Resp B/P (MAP) Pulse Ox O2 Delivery O2 Flow Rate FiO2 12/22/17 08:11 98.6 69 18 127/68 (87) 92 12/22/17 04:19 66 12/22/17 04:00 98.9 66 18 121/57 (78) 95 12/22/17 00:05 69 12/22/17 00:00 98.2 74 18 144/59 (87) 94 12/21/17 20:45 95 21 12/21/17 20:35 73 12/21/17 20:00 97.9 73 20 156/70 (98) 94 12/21/17 16:11 98.7 62 20 118/62 (80) 94 12/21/17 16:00 68 12/21/17 12:11 98.8 60 20 116/60 (78) 93 (Raquel Cerda) -: 12/22/17 0416 12/22/17 0416 Microbiology 12/21/17 Cryptosporidium Exam, Received Pending 12/21/17 Giardia Antigen (DOM), Received Pending Imaging Last Impressions Head CT 12/20/17 1430 Signed Impressions: Service Date/Time: Wednesday, December 20, 2017 15:11 - CONCLUSION: Normal examination for a patient of this age. No significant change has occurred. Arslan aCrr MD Brain MRI 12/20/17 0000 Signed Impressions: Service Date/Time: Wednesday, December 20, 2017 21:20 - CONCLUSION: Normal examination. Mark Sánchez Jr., MD (Raquel Cerda) Physical Exam General Appearance: No Acute Distress, Comfortable (Raquel Cerda) Eyes Eye Exam: Pupils Equal (Raquel Cerda) Pulmonary Resp Exam: Breath Sounds Equal, No Distress, Decreased Bases (Raquel Cerda) Gastrointestinal/Abdomen GI Exam: Non-Tender, Bowel Sounds Present (Raquel Cerda) Genitourinary Exam: Flank Non-Tender (Raquel Cerda) Integumentary Skin Exam: Clear, Warm, Dry (Raquel Cerda) Extremeties Extremities Exam: No Edema Extremeties Remarks Right BKA (Raquel Cerda) Neurologic Neuro Exam: Alert, Awake (Raquel Cerda) Psychiatric Psych Remarks delayed responses (Raquel Cerda) Assessment/Plan Problem List: (1) ESRD (end stage renal disease) on dialysis ICD Codes: N18.6 - End stage renal disease; Z99.2 - Dependence on renal dialysis Status: Chronic Plan: End stage renal disease on hemodialysis Saturday, Saturday, and Saturday Last hemodialysis was done yesterday with right arm AVF. AVF with good thrill and bruit Plan Hyperkalemic at 6.3 will plan for dialysis today Continue PhosLo PO4 is elevated Avoid IVF administration Sodium bicarbonate and calcium gluconate ordered for hyperkalemia C diff positive (2) Diabetes ICD Codes: E11.9 - Type 2 diabetes mellitus without complications Status: Chronic Plan: Maintain blood sugar between 14O to 180 mg/dl (3) Hypertension ICD Codes: I10 - Essential (primary) hypertension Status: Chronic Plan: Will monitor (Raquel Cerda) Problem List: (1) ESRD (end stage renal disease) on dialysis ICD Codes: N18.6 - End stage renal disease; Z99.2 - Dependence on renal dialysis Status: Chronic Plan: End stage renal disease on hemodialysis Saturday, Saturday, and Saturday Last hemodialysis was done yesterday with right arm AVF. AVF with good thrill and bruit Plan Hyperkalemic at 6.3 will plan for dialysis today Continue PhosLo PO4 is elevated Avoid IVF administration Sodium bicarbonate and calcium gluconate ordered for hyperkalemia C diff positive Patient seen and examined, agree with above. HD today, HD RN called already. (2) Diabetes ICD Codes: E11.9 - Type 2 diabetes mellitus without complications Status: Chronic Plan: Maintain blood sugar between 14O to 180 mg/dl (3) Hypertension ICD Codes: I10 - Essential (primary) hypertension Status: Chronic Plan: Will monitor (Brian Gaston MD) Problem Qualifiers (1) Diabetes: Qualified Codes: E11.22 - Type 2 diabetes mellitus with diabetic chronic kidney disease; N18.5 - Chronic kidney disease, stage 5; Z79.4 - senior living ( current) use of insulin (2) Hypertension: Qualified Codes: I10 - Essential (primary) hypertension Raquel Cerda December 22, 2017 12:12 Brian Gaston MD December 22, 2017 13:20
[2017-12-22] MEDS: VANCOMYCIN 500 MG VIAL (FOR ORAL USE ONLY) PO SCH ×3 (12:48→21:18)
[2017-12-22] MEDS: SODIUM BICARBONATE 8.4% INJ 50 MEQ/50 ML SYR IV PUSH ONE ×2 (12:49→17:38)
--- NOTE | 2017-12-22 13:35 | HHI.FPPN ---
Subjective Remarks No acute events overnight. Patient continues to have diarrhea with some abdominal cramping. She had conversation with psychiatry yesterday who recommended increasing her Zoloft as well as outpatient therapy. She will require another round of dialysis today. Lengthy conversation was had about the importance of dialysis for her long-term health. Denies chest pain, shortness of breath, nausea or vomiting. (Vicente Taylor MD R1) Objective Vitals Vital Signs Date Time Temp Pulse Resp B/P (MAP) Pulse Ox O2 Delivery O2 Flow Rate FiO2 12/22/17 08:11 98.6 69 18 127/68 (87) 92 12/22/17 04:19 66 12/22/17 04:00 98.9 66 18 121/57 (78) 95 12/22/17 00:05 69 12/22/17 00:00 98.2 74 18 144/59 (87) 94 12/21/17 20:45 95 21 12/21/17 20:35 73 12/21/17 20:00 97.9 73 20 156/70 (98) 94 12/21/17 16:11 98.7 62 20 118/62 (80) 94 12/21/17 16:00 68 I/O 12/21/17 12/21/17 12/21/17 12/22/17 12/22/17 12/22/17 07:00 15:00 23:00 07:00 15:00 23:00 Intake Total 120 ml 420 ml 120 ml Output Total 0 ml Balance 120 ml 420 ml 120 ml Intake Oral 120 ml 420 ml 120 ml Output Urine Total 0 ml # Voids 2 0 # Bowel Movements 0 0 0 (Vicente Taylor MD R1) Result Diagram: 12/22/17 0416 12/22/17 0416 Objective Remarks GENERAL: Female who appears older than stated age, resting comfortably and answering questions appropriately. SKIN: Cool and dry. HEAD: Atraumatic. Normocephalic. No temporal or scalp tenderness. CARDIOVASCULAR: Regular rate and rhythm without murmurs, gallops, or rubs. RESPIRATORY: Clear to auscultation. Breath sounds equal bilaterally. No wheezes , rales, or rhonchi. GASTROINTESTINAL: Abdomen soft, nondistended. Mild tenderness in the mid abdomen. No hepato-splenomegaly, or palpable masses. No guarding. MUSCULOSKELETAL: Right BKA, stump appears intact. 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 Sensation and motor function intact. No joint tenderness, effusion, or edema noted. No left lower extremity calf tenderness. Dorsalis pedis 2+ pulse in left lower extremity NEUROLOGICAL: Awake and alert (Vicente Taylor MD R1) A/P Assessment and Plan 47-year-old female with an extensive past medical history presents with altered mental status. Treatment as below. Discharge Planning Possibly tomorrow - should be discharged to home (Vicente Taylor MD R1) Problem List: (1) Altered mental status ICD Codes: R41.82 - Altered mental status, unspecified Status: Acute Plan: Multiple potential etiologies including stroke versus hyperammonia versus toxicity versus bacteremia versus ACS versus other Labs: ammonia, acetaminophen level, troponin normal Blood cultures no growth in 48 hours MRI brain negative on admission PT/ST recommending home with home health physical therapy (2) ESRD (end stage renal disease) on dialysis ICD Codes: N18.6 - End stage renal disease; Z99.2 - Dependence on renal dialysis Status: Chronic Plan: nephrology consult for dialysis management Noted to be hyperkalemic on 12/21 with a potassium of 5.9 Ordered Kayexalate 1 at that time Potassium elevated today at 6.3. Creatinine also elevated at 7.74 Nephrology electing for another round of dialysis today We will continue to trend labs. Currently on dialysis Saturday (3) Diarrhea ICD Codes: R19.7 - Diarrhea, unspecified Plan: Patient with diarrhea and abdominal cramping. Prior history of C. difficile infection C. difficile positive. Other stool studies pending Previously on Flagyl, started again on 12/21 but symptoms did not improve Switching to p.o. vancomycin 125 mg 4 times a day on 12/22. Will need total of 10 day course. Also adding probiotic (4) Depression ICD Codes: F32.9 - Major depressive disorder, single episode, unspecified Status: Chronic Plan: Patient reporting symptoms of depression, no suicidal ideation or intent to hurt herself. She also has chronic pain for which she takes unprescribed opiates for. Consulting psychiatry on 12/21. Increasing Zoloft dosage and recommending outpatient therapy after discharge (5) Diabetes ICD Codes: E11.9 - Type 2 diabetes mellitus without complications Status: Chronic Plan: Glucose 115 on admission Per chart, patient normally on Levemir 5 units twice daily Patient mildly hypoglycemic down to 65 on 12/21 Ordering Accu-Cheks, hypoglycemia protocol, sliding scale insulin (6) CHF (congestive heart failure) ICD Codes: I50.9 - Heart failure, unspecified Plan: Known history of CHF BNP on admission 495 No signs of fluid overload on physical exam Echocardiogram pending (7) PAD (peripheral artery disease) ICD Codes: I73.9 - Peripheral vascular disease, unspecified Status: Acute Plan: Continue Plavix 75 mg by mouth daily Permanent Comment: 10/2015 -Dr. Santillan - PAD - Rt calf/foot - angiogram done. 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 Right great toe not healing. Discoloration 4th toe. Dr. Garvey podiatry referral. Ultrasound 3 months for post procedure. If ok then Q6 months us with office visit. 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 twice daily (Vicente Taylor MD R1) Problem List: (1) Altered mental status ICD Codes: R41.82 - Altered mental status, unspecified Status: Acute Plan: Multiple potential etiologies including stroke versus hyperammonia versus toxicity versus bacteremia versus ACS versus other Labs: ammonia, acetaminophen level, troponin normal Blood cultures no growth in 48 hours MRI brain negative on admission PT/ST recommending home with home health physical therapy See the residents documentation for details. I saw and evaluated the patient regarding the mejias portions of this evaluation and agree with the residents findings and plans as written. Parts of this note were created using [employer] voice recognition software program. While efforts were made to correct any mistakes made by this software, some mistakes, errors, and omissions may remain in the final note that were not caught when the note was originally created. Plan of care was discussed and agreed upon with the patient as specifically documented in the above note. An opportunity to ask questions with explanation was provided. Patient voiced understanding on all information reviewed and discussed. (2) ESRD (end stage renal disease) on dialysis ICD Codes: N18.6 - End stage renal disease; Z99.2 - Dependence on renal dialysis Status: Chronic Plan: nephrology consult for dialysis management Noted to be hyperkalemic on 12/21 with a potassium of 5.9 Ordered Kayexalate 1 at that time Potassium elevated today at 6.3. Creatinine also elevated at 7.74 Nephrology electing for another round of dialysis today We will continue to trend labs. Currently on dialysis Saturday (3) Diarrhea ICD Codes: R19.7 - Diarrhea, unspecified Plan: Patient with diarrhea and abdominal cramping. Prior history of C. difficile infection C. difficile positive. Other stool studies pending Previously on Flagyl, started again on 12/21 but symptoms did not improve Switching to p.o. vancomycin 125 mg 4 times a day on 12/22. Will need total of 10 day course. Also adding probiotic (4) Depression ICD Codes: F32.9 - Major depressive disorder, single episode, unspecified Status: Chronic Plan: Patient reporting symptoms of depression, no suicidal ideation or intent to hurt herself. She also has chronic pain for which she takes unprescribed opiates for. Consulting psychiatry on 12/21. Increasing Zoloft dosage and recommending outpatient therapy after discharge (5) Diabetes ICD Codes: E11.9 - Type 2 diabetes mellitus without complications Status: Chronic Plan: Glucose 115 on admission Per chart, patient normally on Levemir 5 units twice daily Patient mildly hypoglycemic down to 65 on 12/21 Ordering Accu-Cheks, hypoglycemia protocol, sliding scale insulin (6) CHF (congestive heart failure) ICD Codes: I50.9 - Heart failure, unspecified Plan: Known history of CHF BNP on admission 495 No signs of fluid overload on physical exam Echocardiogram pending (7) PAD (peripheral artery disease) ICD Codes: I73.9 - Peripheral vascular disease, unspecified Status: Acute Plan: Continue Plavix 75 mg by mouth daily Permanent Comment: 10/2015 -Dr. Santillan - PAD - Rt calf/foot - angiogram done. 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 Right great toe not healing. Discoloration 4th toe. Dr. Garvey podiatry referral. Ultrasound 3 months for post procedure. If ok then Q6 months us with office visit. 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 twice daily See the residents documentation for details. I saw and evaluated the patient regarding the mejias portions of this evaluation and agree with the residents findings and plans as written. Parts of this note were created using [employer] voice recognition software program. While efforts were made to correct any mistakes made by this software, some mistakes, errors, and omissions may remain in the final note that were not caught when the note was originally created. Plan of care was discussed and agreed upon with the patient as specifically documented in the above note. An opportunity to ask questions with explanation was provided. Patient voiced understanding on all information reviewed and discussed. 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
--- NOTE | 2017-12-22 13:38 | HHI.FF ---
Face to Face Verification Diagnosis: (1) Clostridium difficile diarrhea (2) Hx of BKA (3) PAD (peripheral artery disease) (4) CHF (congestive heart failure) (5) Depression (6) ESRD on HD Physical Therapy Order: Evaluate and Treat, Improve ambulation, Strength and gait training Home Health Nursing Order: Medical education Signs/symptoms of disease process Diabetic education CHF education I have seen patient Summer Laguerre on 12/22/17. My clinical findings support the need for the requested home health care services because: Ltd mobility - disease progression Patient has SOB Deconditioned w/ increased weakness Med compliance is questionable Limited ability to care for self High risk of falls I certify that my clinical findings support that this patient is homebound because: Unsteady gait/balance Unsafe to leave home unassisted Poor cardiac reserve Vicente Taylor MD R1 December 22, 2017 13:38 Everardo Ricketts MD December 23, 2017 11:50
[2017-12-22] MEDS: LACTOBACILLUS ACIDOPHILUS TAB PO SCH ×2 (14:13→21:17)
[2017-12-22] MEDS: ALBUMIN 25% INJ 100 ML IV PRN ×2 (16:41→16:42)
[2017-12-22] MEDS: ONDANSETRON HCL 4 MG/2 ML VIAL IV PUSH PRN (18:57)
[2017-12-23] VITALS: BP 105/50; PULSE 63; PULSE 65; RESP 16; TEMP 98.2; O2SAT 98
[2017-12-23 04:00] VITALS: BP 110/60; PULSE 64; PULSE 68; RESP 16; TEMP 97.6; O2SAT 97
[2017-12-23 06:59] LABS: AUTOMATED NEUTROPHIL # 2.8 TH/MM3 (1.8-7.7); BASOPHIL # 0.1 TH/MM3 (0-0.2); BASOPHIL % 1.6 % (0.0-2.0); EOSINOPHIL # 0.2 TH/MM3 (0-0.4); EOSINOPHIL % 3.7 % (0.0-4.0); HEMATOCRIT 34.4 % (35.0-46.0); HEMOGLOBIN 11.1 GM/DL (11.6-15.3); LYMPH % 15.9 % (9.0-44.0); LYMPHOCYTE # 0.7 TH/MM3 (1.0-4.8); MEAN CELL VOLUME 93.6 FL (80.0-100.0); MEAN CORPUSCULAR HEMOGLOBIN 30.2 PG (27.0-34.0); MEAN CORPUSCULAR HGB CONC 32.2 % (32.0-36.0); MEAN PLATELET VOLUME 7.7 FL (7.0-11.0); MONO % 13.6 % (0.0-8.0); MONOCYTE # 0.6 TH/MM3 (0-0.9); NEUT % 65.2 % (16.0-70.0); PLATELET COUNT 242 TH/MM3 (150-450); RED BLOOD COUNT 3.67 MIL/MM3 (4.00-5.30); WHITE BLOOD COUNT 4.3 TH/MM3 (4.0-11.0)
[2017-12-23 07:36] LABS: BICARBONATE 29.3 MEQ/L (21.0-32.0); CALCIUM 8.7 MG/DL (8.5-10.1); CREATININE 7.03 MG/DL (0.50-1.00)
[2017-12-23] MEDS: INSULIN ASPART SUPPLEMENTAL SCALE SQ SCH ×4 (07:45→21:00)
[2017-12-23 08:00] VITALS: BP 131/59; PULSE 64; PULSE 66; RESP 18; TEMP 97.6; O2SAT 96
[2017-12-23] MEDS: CALCIUM ACETATE 667 MG CAP PO SCH ×3 (08:30→17:25)
[2017-12-23] MEDS: VANCOMYCIN 500 MG VIAL (FOR ORAL USE ONLY) PO SCH ×4 (08:30→23:37)
[2017-12-23] MEDS: DOCUSATE SODIUM 50 MG/SENNA 8.6 MG TAB PO SCH ×2 (08:31→21:00)
[2017-12-23] MEDS: APIXABAN 2.5 MG TABLET PO SCH ×2 (08:31→23:36)
[2017-12-23] MEDS: PANTOPRAZOLE SOD 40 MG DELAYED RELEASE TAB PO SCH (08:31)
[2017-12-23] MEDS: CLOPIDOGREL 75 MG TAB PO SCH (08:31)
[2017-12-23] MEDS: LACTOBACILLUS ACIDOPHILUS TAB PO SCH ×2 (08:31→23:36)
[2017-12-23] MEDS: LISINOPRIL 20 MG TAB PO SCH ×2 (08:31→23:37)
[2017-12-23] MEDS: amLODIPine BESYLATE 5 MG TAB PO SCH (08:31)
[2017-12-23] MEDS: SERTRALINE HCL 100 MG TAB PO SCH (08:32)
[2017-12-23] MEDS: CARVEDILOL 12.5 MG TAB PO SCH ×2 (08:43→23:36)
[2017-12-23] MEDS: SODIUM CHLORIDE 0.9% FLUSH 10 ML FLUSH IV FLUSH SCH ×2 (09:00→23:37)
--- NOTE | 2017-12-23 10:12 | HHI.NPPN ---
Subjective General Problems: Anemia Renal Failure: End Stage Renal Disease History of Present Illness Patient is a 47-year-old female with a past medical history including end-stage renal disease on hemodialysis Saturday/Saturday/Saturday, diabetes mellitus with retinopathy, peripheral vascular disease, peripheral arterial disease,essential hypertension, dyslipidemia, Hepatitis C, History of calciphylaxis, coronary artery disease, and depression. Presents to emergency room with altered mental status. Nephrology is consulted for management of end stage renal disease on hemodialysis. Last hemodialysis was done yesterday with right arm AVF. 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 Patient was noted to be hyperkalemic at 5.9 and Kayexalate was given. Additional Remarks Resting comfortably, hemodialysis yesterday with UF of 2 liters (Raquel Cerda) Objective Data Data Vital Signs Date Time Temp Pulse Resp B/P (MAP) Pulse Ox O2 Delivery O2 Flow Rate FiO2 12/23/17 08:00 97.6 66 18 131/59 (83) 96 12/23/17 07:00 Nasal Cannula 2.00 12/23/17 04:00 Nasal Cannula 2.00 12/23/17 04:00 97.6 68 16 110/60 (77) 97 12/23/17 04:00 64 12/23/17 00:00 98.2 65 16 105/50 (68) 98 12/23/17 00:00 63 12/23/17 00:00 Nasal Cannula 2.00 12/22/17 20:00 97.1 73 16 114/56 (75) 94 12/22/17 20:00 69 12/22/17 20:00 94 Nasal Cannula 2.00 12/22/17 17:16 94 21 12/22/17 16:11 98.5 72 18 126/66 (86) 96 12/22/17 16:00 63 12/22/17 14:07 94 12/22/17 12:11 98.7 70 18 128/70 (89) 94 12/22/17 12:00 67 (Raquel Cerda) -: 12/23/17 0515 12/23/17 0515 Physical Exam General Appearance: No Acute Distress, Comfortable (Raquel Cerda) Eyes Eye Exam: Pupils Equal (Raquel Cerda) Pulmonary Resp Exam: Breath Sounds Equal, No Distress, Decreased Bases (Raquel Cerda) Gastrointestinal/Abdomen GI Exam: Non-Tender, Bowel Sounds Present (Raquel Cerda) Genitourinary Exam: Flank Non-Tender (Raquel Cerda) Integumentary Skin Exam: Clear, Warm, Dry (Raquel Cerda) Extremeties Extremities Exam: No Edema Extremeties Remarks Right BKA (Raquel Cerda) Neurologic Neuro Exam: Alert, Awake (Raquel Cerda) Psychiatric Psych Remarks delayed responses (Raquel Cerda) Assessment/Plan Problem List: (1) ESRD (end stage renal disease) on dialysis ICD Codes: N18.6 - End stage renal disease; Z99.2 - Dependence on renal dialysis Status: Chronic Plan: End stage renal disease on hemodialysis Saturday, Saturday, and Saturday Last hemodialysis was done yesterday with right arm AVF. AVF with good thrill and bruit Plan Hemodialysis yesterday with UF of 2 liters Continue PhosLo PO4 is elevated Avoid IVF administration Hyperkalemia resolved C diff positive Hemodialysis today to get patient on scheduled days. Cleared per nephrology for discharge after dialysis (2) Diabetes ICD Codes: E11.9 - Type 2 diabetes mellitus without complications Status: Chronic Plan: Maintain blood sugar between 14O to 180 mg/dl (3) Hypertension ICD Codes: I10 - Essential (primary) hypertension Status: Chronic Plan: Will monitor (Raquel Cerda) Problem List: (1) ESRD (end stage renal disease) on dialysis ICD Codes: N18.6 - End stage renal disease; Z99.2 - Dependence on renal dialysis Status: Chronic Plan: End stage renal disease on hemodialysis Saturday, Saturday, and Saturday Last hemodialysis was done yesterday with right arm AVF. AVF with good thrill and bruit Plan Hemodialysis yesterday with UF of 2 liters Continue PhosLo PO4 is elevated Avoid IVF administration Hyperkalemia resolved C diff positive Hemodialysis today to get patient on scheduled days. Cleared per nephrology for discharge after dialysis. Patient seen and examined, agree with above. Told to decrease K in the diet. 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
--- NOTE | 2017-12-23 10:58 | HHI.FPPN ---
Subjective Remarks Patient appeared confused this morning. She did not know where she was and was staring intermittently into space. She did state that she was not not in pain. She has not had diarrhea. (Leena Johnston MD R2) Objective Vitals Vital Signs Date Time Temp Pulse Resp B/P (MAP) Pulse Ox O2 Delivery O2 Flow Rate FiO2 12/23/17 08:00 97.6 66 18 131/59 (83) 96 12/23/17 07:00 Nasal Cannula 2.00 12/23/17 04:00 Nasal Cannula 2.00 12/23/17 04:00 97.6 68 16 110/60 (77) 97 12/23/17 04:00 64 12/23/17 00:00 98.2 65 16 105/50 (68) 98 12/23/17 00:00 63 12/23/17 00:00 Nasal Cannula 2.00 12/22/17 20:00 97.1 73 16 114/56 (75) 94 12/22/17 20:00 69 12/22/17 20:00 94 Nasal Cannula 2.00 12/22/17 17:16 94 21 12/22/17 16:11 98.5 72 18 126/66 (86) 96 12/22/17 16:00 63 12/22/17 14:07 94 12/22/17 12:11 98.7 70 18 128/70 (89) 94 12/22/17 12:00 67 I/O 12/22/17 12/22/17 12/22/17 12/23/17 12/23/17 12/23/17 07:00 15:00 23:00 07:00 15:00 23:00 Intake Total 120 ml 380 ml Output Total 2000 ml Balance 120 ml -1620 ml Intake Oral 120 ml 380 ml Hemodialysis 2000 ml # Voids 0 0 # Bowel Movements 0 0 (Leena Johnston MD R2) Result Diagram: 12/23/17 0515 12/23/17 0515 Objective Remarks GENERAL: Female who appears older than stated age, resting comfortably, appears uncomfortable. Answers some questions EYES: Small pupils SKIN: Cool and dry. HEAD: Atraumatic. Normocephalic. No temporal or scalp tenderness. CARDIOVASCULAR: Regular rate and rhythm without murmurs, gallops, or rubs. RESPIRATORY: Clear to auscultation. Breath sounds equal bilaterally. No wheezes , rales, or rhonchi. GASTROINTESTINAL: Abdomen soft, nondistended. No hepato-splenomegaly, or palpable masses. No guarding. MUSCULOSKELETAL: Right BKA, stump appears intact. 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 Sensation and motor function intact. No joint tenderness, effusion, or edema noted. No left lower extremity calf tenderness. NEUROLOGICAL: Awake and alert (Leena Johnston MD R2) A/P Assessment and Plan 47-year-old female with an extensive past medical history presented with altered mental status. Treatment as below. Discharge Planning Possibly today after dialysis or tomorrow - should be discharged to home (Leena Johnston MD R2) Problem List: (1) Altered mental status ICD Codes: R41.82 - Altered mental status, unspecified Status: Acute Plan: Multiple potential etiologies including stroke versus hyperammonemia versus toxicity versus bacteremia versus ACS versus other Labs: ammonia, acetaminophen level, troponin normal Blood cultures no growth in 48 hours MRI brain negative on admission PT/ST recommending home with home health physical therapy (2) Hypoglycemia ICD Codes: E16.2 - Hypoglycemia, unspecified Status: Acute Plan: -Serum glucose of 43 mg/dl this am -Patient received 2 servings of apple juice and bedside glucose increased to 63 mg/dl at 0745 -Bedside glucose 77mg/dl after another 2 servings of apple juice at 0820 -After 1 serving of milk, bedside glucose increased to 100 mg/dl -Breakfast tray at bedside - patient encouraged to eat (3) ESRD (end stage renal disease) on dialysis ICD Codes: N18.6 - End stage renal disease; Z99.2 - Dependence on renal dialysis Status: Chronic Plan: Nephrology on board for dialysis management Noted to be hyperkalemic on 12/21 with a potassium of 5.9 Ordered Kayexalate 1 at that time Potassium wnl today at 4.7. Creatinine down to 7.03 from 7.74 Nephrology electing for another round of dialysis today to get her on schedule Currently on dialysis Saturday (4) Diarrhea ICD Codes: R19.7 - Diarrhea, unspecified Plan: Patient with diarrhea and abdominal cramping. Prior history of C. difficile infection C. difficile positive. Other stool studies pending No stools recorded since admission Continue PO vancomycin 125 mg 4 times a day on 12/22. Will need total of 10 day course. Continue probiotic (5) Depression ICD Codes: F32.9 - Major depressive disorder, single episode, unspecified Status: Chronic Plan: Patient reporting symptoms of depression, no suicidal ideation or intent to hurt herself. She also has chronic pain for which she takes un-prescribed opiates. Psychiatry was consulted on 12/21. Zoloft dosage was increased to 125mg PO daily and outpatient therapy recommended after discharge However, holding Zoloft today due to confusion (6) Diabetes ICD Codes: E11.9 - Type 2 diabetes mellitus without complications Status: Chronic Plan: Glucose 115 on admission Per chart, patient normally on Levemir 5 units twice daily Patient has been mildly hypoglycemic since admission Continue Accu-Cheks, hypoglycemia protocol, sliding scale insulin (7) CHF (congestive heart failure) ICD Codes: I50.9 - Heart failure, unspecified Plan: Known history of CHF BNP on admission 495 No signs of fluid overload on physical exam Echocardiogram pending (8) PAD (peripheral artery disease) ICD Codes: I73.9 - Peripheral vascular disease, unspecified Status: Acute Plan: Continue Plavix 75 mg by mouth daily Permanent Comment: 10/2015 -Dr. Santillan - PAD - Rt calf/foot - angiogram done. 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 Right great toe not healing. Discoloration 4th toe. Dr. Garvey podiatry referral. Ultrasound 3 months for post procedure. If ok then Q6 months us with office visit. Last Edited By: Jude Ron on Oct 20, 2015 15:58 (9) Tobacco abuse ICD Codes: Z72.0 - Tobacco use Status: Chronic Plan: Belt Weaver cessation when patient becomes more alert Consider nicotine patch (10) Hypertension ICD Codes: I10 - Essential (primary) hypertension Status: Chronic Plan: continue lisinopril, amlodipine, coreg (11) FEN/DVT PPX/GI PPX/Nursing Orders Status: Acute Plan: Fluids: No IV fluids for now Electrolyte: Monitor and replace as needed Nutrition: Diabetic diet Prophylaxis: Continue Eliquis 2.5 mg p.o. twice daily (Leena Johnston MD R2) Problem List: (1) Altered mental status ICD Codes: R41.82 - Altered mental status, unspecified Status: Acute Plan: Multiple potential etiologies including stroke versus hyperammonemia versus toxicity versus bacteremia versus ACS versus other Labs: ammonia, acetaminophen level, troponin normal Blood cultures no growth in 48 hours MRI brain negative on admission PT/ST recommending home with home health physical therapy (2) Hypoglycemia ICD Codes: E16.2 - Hypoglycemia, unspecified Status: Acute Plan: -Serum glucose of 43 mg/dl this am -Patient received 2 servings of apple juice and bedside glucose increased to 63 mg/dl at 0745 -Bedside glucose 77mg/dl after another 2 servings of apple juice at 0820 -After 1 serving of milk, bedside glucose increased to 100 mg/dl -Breakfast tray at bedside - patient encouraged to eat (3) ESRD (end stage renal disease) on dialysis ICD Codes: N18.6 - End stage renal disease; Z99.2 - Dependence on renal dialysis Status: Chronic Plan: Nephrology on board for dialysis management Noted to be hyperkalemic on 12/21 with a potassium of 5.9 Ordered Kayexalate 1 at that time Potassium wnl today at 4.7. Creatinine down to 7.03 from 7.74 Nephrology electing for another round of dialysis today to get her on schedule Currently on dialysis Saturday (4) Diarrhea ICD Codes: R19.7 - Diarrhea, unspecified Plan: Patient with diarrhea and abdominal cramping. Prior history of C. difficile infection C. difficile positive. Other stool studies pending No stools recorded since admission Continue PO vancomycin 125 mg 4 times a day on 12/22. Will need total of 10 day course. Continue probiotic (5) Depression ICD Codes: F32.9 - Major depressive disorder, single episode, unspecified Status: Chronic Plan: Patient reporting symptoms of depression, no suicidal ideation or intent to hurt herself. She also has chronic pain for which she takes un-prescribed opiates. Psychiatry was consulted on 12/21. Zoloft dosage was increased to 125mg PO daily and outpatient therapy recommended after discharge However, holding Zoloft today due to confusion (6) Diabetes ICD Codes: E11.9 - Type 2 diabetes mellitus without complications Status: Chronic Plan: Glucose 115 on admission Per chart, patient normally on Levemir 5 units twice daily Patient has been mildly hypoglycemic since admission Continue Accu-Cheks, hypoglycemia protocol, sliding scale insulin (7) CHF (congestive heart failure) ICD Codes: I50.9 - Heart failure, unspecified Plan: Known history of CHF BNP on admission 495 No signs of fluid overload on physical exam Echocardiogram pending (8) PAD (peripheral artery disease) ICD Codes: I73.9 - Peripheral vascular disease, unspecified Status: Acute Plan: Continue Plavix 75 mg by mouth daily Permanent Comment: 10/2015 -Dr. Santillan - PAD - Rt calf/foot - angiogram done. 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 Right great toe not healing. Discoloration 4th toe. Dr. Garvey podiatry referral. Ultrasound 3 months for post procedure. If ok then Q6 months us with office visit. Last Edited By: Jdue Ron on Oct 20, 2015 15:58 (9) Tobacco abuse ICD Codes: Z72.0 - Tobacco use Status: Chronic Plan: Belt Weaver cessation when patient becomes more alert Consider nicotine patch (10) Hypertension ICD Codes: I10 - Essential (primary) hypertension Status: Chronic Plan: continue lisinopril, amlodipine, coreg (11) FEN/DVT PPX/GI PPX/Nursing Orders Status: Acute Plan: Fluids: No IV fluids for now Electrolyte: Monitor and replace as needed Nutrition: Diabetic diet Prophylaxis: Continue Eliquis 2.5 mg p.o. twice daily See the residents documentation for details. I saw and evaluated the patient regarding the mejias portions of this evaluation and agree with the residents findings and plans as written. Parts of this note were created using [employer] voice recognition software program. While efforts were made to correct any mistakes made by this software, some mistakes, errors, and omissions may remain in the final note that were not caught when the note was originally created. Plan of care was discussed and agreed upon with the patient as specifically documented in the above note. An opportunity to ask questions with explanation was provided. Patient voiced understanding on all information reviewed and discussed. (Everardo Ricketts MD) Problem Qualifiers (1) Altered mental status: Qualified Codes: R41.82 - Altered mental status, unspecified (2) Depression: Qualified Codes: F32.9 - Major depressive disorder, single episode, unspecified (3) Diabetes: Qualified Codes: E11.22 - Type 2 diabetes mellitus with diabetic chronic kidney disease; N18.5 - Chronic kidney disease, stage 5; Z79.4 - [facility]FP ( current) use of insulin (4) Hypertension: Qualified Codes: I10 - Essential (primary) hypertension Leena Johnston MD R2 December 23, 2017 10:58 Everardo Ricketts MD December 23, 2017 14:28
[2017-12-23 12:00] VITALS: PULSE 68
[2017-12-23 16:00] VITALS: BP 154/69; PULSE 71; PULSE 73; RESP 18; TEMP 98.2; O2SAT 91
--- NOTE | 2017-12-23 19:24 | RADRPT ---
EXAM DATE/TIME: 12/23/2017 19:08 [facility] COMPARISON: No previous studies available for comparison. INDICATIONS : Abdomen pain MEDICAL HISTORY : Diabetes mellitus type 2. Hypertension. SURGICAL HISTORY : Cholecystectomy. Rt BKA, Perisplenic drain, Right oophorectomy, Left lower angioplasty ENCOUNTER: Initial ACUITY: 3 days PAIN SCORE: 0/10 LOCATION: Abdomen FINDINGS: There is an unidentified foreign object overlying the right lower quadrant of the abdomen. If there i s any chance that this was external to the patient, foreign material should be removed from the cloth ing and bedding and the film should be repeated. Surgical clips are present in the right upper quadra nt from previous cholecystectomy. Intestinal gas pattern is nonspecific and benign. No suspicious zoran cific densities are identified. There is mild degenerative change of the spine CONCLUSION: Unidentified foreign object overlying the right lower quadrant. Abhijit Ordaz MD on December 23, 2017 at 19:20 Board Certified Radiologist. This report was verified electronically.
[2017-12-23 20:00] VITALS: BP 147/62; PULSE 72; RESP 16; TEMP 98.5; O2SAT 93
[2017-12-24] VITALS (9 sets, daily range): BP systolic 144–174; BP diastolic 62–80; PULSE 67–74; RESP 16–18; TEMP 97.4–98.6; O2SAT 93–99
[2017-12-24 06:21] LABS: HEMATOCRIT 35.2 % (35.0-46.0); HEMOGLOBIN 11.4 GM/DL (11.6-15.3); MEAN CELL VOLUME 92.1 FL (80.0-100.0); MEAN CORPUSCULAR HGB CONC 32.5 % (32.0-36.0); MEAN PLATELET VOLUME 7.5 FL (7.0-11.0); PLATELET COUNT 279 TH/MM3 (150-450); RED BLOOD COUNT 3.82 MIL/MM3 (4.00-5.30); RED CELL DISTRIBUTION WIDTH 16.7 % (11.6-17.2); WHITE BLOOD COUNT 5.6 TH/MM3 (4.0-11.0)
[2017-12-24] MEDS: INSULIN ASPART SUPPLEMENTAL SCALE SQ SCH ×2 (08:00→12:00)
[2017-12-24 08:15] LABS: BICARBONATE 30.1 MEQ/L (21.0-32.0); CALCIUM 9.1 MG/DL (8.5-10.1); CREATININE 5.34 MG/DL (0.50-1.00)
--- NOTE | 2017-12-24 08:55 | HHI.FPPN ---
Subjective Remarks No acute events overnight. Nurse at bedside. Patient lying in bed, comfortable. Patient is currently on 3 L of nasal cannula. She is doing well. She still endorses mild abdominal pain on palpation. She received dialysis yesterday. Patient is more alert and oriented this morning. No complaints. (Zeinab Sheldon MD R1) Objective Vitals Vital Signs Date Time Temp Pulse Resp B/P (MAP) Pulse Ox O2 Delivery O2 Flow Rate FiO2 12/24/17 06:00 97.4 71 16 174/73 (106) 99 12/24/17 04:00 71 12/24/17 00:00 98.6 72 17 144/62 (89) 96 12/24/17 00:00 74 12/23/17 20:00 98.5 72 16 147/62 (90) 93 12/23/17 20:00 Nasal Cannula 2.00 12/23/17 20:00 72 12/23/17 16:00 98.2 73 18 154/69 (97) 91 12/23/17 16:00 71 12/23/17 12:00 68 I/O 12/23/17 12/23/17 12/23/17 12/24/17 12/24/17 12/24/17 07:00 15:00 23:00 07:00 15:00 23:00 Intake Total 0 ml Output Total 3000 ml 0 ml Balance -3000 ml 0 ml Intake Oral 0 ml Output Urine Total 0 ml Hemodialysis 3000 ml # Bowel Movements 0 (Zeinab Sheldon MD R1) Result Diagram: 12/24/17 0400 12/24/17 0500 Objective Remarks GENERAL: Female who appears older than stated age, resting comfortably, appears uncomfortable. Answers some questions EYES: Small pupils SKIN: Cool and dry. HEAD: Atraumatic. Normocephalic. No temporal or scalp tenderness. CARDIOVASCULAR: Regular rate and rhythm without murmurs, gallops, or rubs. RESPIRATORY: Clear to auscultation. Breath sounds equal bilaterally. No wheezes , rales, or rhonchi. Currently on 3 L nasal cannula. GASTROINTESTINAL: Abdomen soft, nondistended. No hepato-splenomegaly, or palpable masses. No guarding. MUSCULOSKELETAL: Right BKA, stump appears intact. 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 Sensation and motor function intact. No joint tenderness, effusion, or edema noted. No left lower extremity calf tenderness. NEUROLOGICAL: Awake and alert. oriented to person and place. (Zeinab Sheldon MD R1) A/P Assessment and Plan 47-year-old female with an extensive past medical history presented with altered mental status. Treatment as below. Discharge Planning Dissipate discharge tomorrow - should be discharged with home health Patient may require home oxygen (Zeinab Sheldon MD R1) Problem List: (1) Altered mental status ICD Codes: R41.82 - Altered mental status, unspecified Status: Acute Plan: Multiple potential etiologies including stroke versus hyperammonemia versus toxicity versus bacteremia versus ACS versus other Labs: ammonia, acetaminophen level, troponin normal Blood cultures no growth to date MRI brain negative on admission PT/ST recommending home with home health physical therapy (2) ESRD (end stage renal disease) on dialysis ICD Codes: N18.6 - End stage renal disease; Z99.2 - Dependence on renal dialysis Status: Chronic Plan: Nephrology on board for dialysis management Patient received dialysis yesterday.Currently on dialysis Saturday Potassium wnl today at 4.3. Creatinine decreased to 5.34. Patient is cleared from nephrology standpoint. (3) Hypoglycemia ICD Codes: E16.2 - Hypoglycemia, unspecified Status: Acute Plan: -Serum glucose of 47 mg/dl on 11/24, serum glucose 67 this a.m. -Breakfast tray at bedside - patient encouraged to eat (4) Depression ICD Codes: F32.9 - Major depressive disorder, single episode, unspecified Status: Chronic Plan: Patient reporting symptoms of depression, no suicidal ideation or intent to hurt herself. She also has chronic pain for which she takes un-prescribed opiates. Psychiatry was consulted on 12/21. Zoloft dosage was increased to 125mg PO daily and outpatient therapy recommended after discharge However, holding Zoloft for now due to confusion (5) Diabetes ICD Codes: E11.9 - Type 2 diabetes mellitus without complications Status: Chronic Plan: Glucose 115 on admission Per chart, patient normally on Levemir 5 units twice daily Patient has been mildly hypoglycemic since admission Continue Accu-Cheks, hypoglycemia protocol, sliding scale insulin (6) CHF (congestive heart failure) ICD Codes: I50.9 - Heart failure, unspecified Plan: Known history of CHF BNP on admission 495 No signs of fluid overload on physical exam Echocardiogram pending (7) PAD (peripheral artery disease) ICD Codes: I73.9 - Peripheral vascular disease, unspecified Status: Acute Plan: Continue Plavix 75 mg by mouth daily Permanent Comment: 10/2015 -Dr. Santillan - PAD - Rt calf/foot - angiogram done. Chronic total occlusion of AT with right AT Ath/ED TRANSPORTER on 09/23/15. Right great toe not healing. Discoloration 4th toe. Dr. Garvey podiatry referral. Ultrasound 3 months for post procedure. If ok then Q6 months us with office visit. 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 Prior history of C. difficile infection C. difficile positive. cryptosporidum and giardia negative. No bowel movements recorded since admission Discontinued PO vancomycin 125 mg 4 times a day- started on 12/22. Continue probiotic Will restart constipation protocol (11) FEN/DVT PPX/GI PPX/Nursing Orders Status: Acute Plan: Fluids: No IV fluids for now Electrolyte: Monitor and replace as needed Nutrition: Diabetic diet Prophylaxis: Continue Eliquis 2.5 mg p.o. twice daily (Zeinab Sheldon MD R1) Problem List: (1) Altered mental status ICD Codes: R41.82 - Altered mental status, unspecified Status: Acute Plan: Multiple potential etiologies including stroke versus hyperammonemia versus toxicity versus bacteremia versus ACS versus other Labs: ammonia, acetaminophen level, troponin normal Blood cultures no growth to date MRI brain negative on admission PT/ST recommending home with home health physical therapy (2) ESRD (end stage renal disease) on dialysis ICD Codes: N18.6 - End stage renal disease; Z99.2 - Dependence on renal dialysis Status: Chronic Plan: Nephrology on board for dialysis management Patient received dialysis yesterday.Currently on dialysis Saturday Potassium wnl today at 4.3. Creatinine decreased to 5.34. Patient is cleared from nephrology standpoint. (3) Hypoglycemia ICD Codes: E16.2 - Hypoglycemia, unspecified Status: Acute Plan: -Serum glucose of 47 mg/dl on 11/24, serum glucose 67 this a.m. -Breakfast tray at bedside - patient encouraged to eat (4) Depression ICD Codes: F32.9 - Major depressive disorder, single episode, unspecified Status: Chronic Plan: Patient reporting symptoms of depression, no suicidal ideation or intent to hurt herself. She also has chronic pain for which she takes un-prescribed opiates. Psychiatry was consulted on 12/21. Zoloft dosage was increased to 125mg PO daily and outpatient therapy recommended after discharge However, holding Zoloft for now due to confusion (5) Diabetes ICD Codes: E11.9 - Type 2 diabetes mellitus without complications Status: Chronic Plan: Glucose 115 on admission Per chart, patient normally on Levemir 5 units twice daily Patient has been mildly hypoglycemic since admission Continue Accu-Cheks, hypoglycemia protocol, sliding scale insulin (6) CHF (congestive heart failure) ICD Codes: I50.9 - Heart failure, unspecified Plan: Known history of CHF BNP on admission 495 No signs of fluid overload on physical exam Echocardiogram pending (7) PAD (peripheral artery disease) ICD Codes: I73.9 - Peripheral vascular disease, unspecified Status: Acute Plan: Continue Plavix 75 mg by mouth daily Permanent Comment: 10/2015 -Dr. Santillan - PAD - Rt calf/foot - angiogram done. Chronic total occlusion of AT with right AT Ath/ED TRANSPORTER on 09/23/15. Right great toe not healing. Discoloration 4th toe. Dr. Garvey podiatry referral. Ultrasound 3 months for post procedure. If ok then Q6 months us with office visit. 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 Prior history of C. difficile infection C. difficile positive. cryptosporidum and giardia negative. No bowel movements recorded since admission Discontinued PO vancomycin 125 mg 4 times a day- started on 12/22. Continue probiotic Will restart constipation protocol (11) FEN/DVT PPX/GI PPX/Nursing Orders Status: Acute Plan: Fluids: No IV fluids for now Electrolyte: Monitor and replace as needed Nutrition: Diabetic diet Prophylaxis: Continue Eliquis 2.5 mg p.o. twice daily See the residents documentation for details. I saw and evaluated the patient regarding the mejias portions of this evaluation and agree with the residents findings and plans as written. Parts of this note were created using [employer] voice recognition software program. While efforts were made to correct any mistakes made by this software, some mistakes, errors, and omissions may remain in the final note that were not caught when the note was originally created. Plan of care was discussed and agreed upon with the patient as specifically documented in the above note. An opportunity to ask questions with explanation was provided. Patient voiced understanding on all information reviewed and discussed. 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
[2017-12-24] MEDS: SODIUM CHLORIDE 0.9% FLUSH 10 ML FLUSH IV FLUSH SCH (09:00)
[2017-12-24] MEDS ORDERED: BISACODYL 10 MG SUPP RECTAL PRN (09:00)
[2017-12-24] MEDS: CALCIUM ACETATE 667 MG CAP PO SCH ×2 (09:00→13:00)
[2017-12-24] MEDS ORDERED: DOCUSATE SODIUM 50 MG/SENNA 8.6 MG TAB PO SCH (09:00)
[2017-12-24] MEDS ORDERED: SENNOSIDES 8.6 MG TAB PO PRN (09:00)
[2017-12-24] MEDS ORDERED: LACTULOSE SYRUP 20 GM/30 ML CUP PO PRN (09:00)
[2017-12-24] MEDS ORDERED: MAGNESIUM HYDROXIDE SUSP 30 ML CUP PO PRN (09:00)
--- NOTE | 2017-12-24 09:41 | RADRPT ---
EXAM DATE/TIME: 12/24/2017 09:07 [facility] COMPARISON: No previous studies available for comparison. INDICATIONS : Evaluate for foreign object. MEDICAL HISTORY : Diabetes mellitus type 2. Hypertension. SURGICAL HISTORY : Cholecystectomy. Rt BKA, Perisplenic drain, Right oophorectomy, Left lower angioplasty ENCOUNTER: Subsequent ACUITY: 4 - 6 days PAIN SCORE: 0/10 LOCATION: Lower abdomen FINDINGS: Supine view of the abdomen was performed. The abdominal bowel gas pattern is normal. No abnormal ma sses, calcifications, or organomegaly is seen. The osseous structures are unremarkable. Surgical cli ps right upper quadrant. EKG leads overlie the chest. Vascular calcifications are noted. CONCLUSION: Cholecystectomy clips otherwise no radiopaque foreign bodies. Christiano Cramer MD on December 24, 2017 at 9:38 Board Certified Radiologist. This report was verified electronically.
[2017-12-24] MEDS: PANTOPRAZOLE SOD 40 MG DELAYED RELEASE TAB PO SCH (10:01)
[2017-12-24] MEDS: amLODIPine BESYLATE 5 MG TAB PO SCH (10:01)
[2017-12-24] MEDS: APIXABAN 2.5 MG TABLET PO SCH (10:01)
[2017-12-24] MEDS: DOCUSATE SODIUM 50 MG/SENNA 8.6 MG TAB PO SCH (10:01)
[2017-12-24] MEDS: CLOPIDOGREL 75 MG TAB PO SCH (10:01)
[2017-12-24] MEDS: LACTOBACILLUS ACIDOPHILUS TAB PO SCH (10:02)
[2017-12-24] MEDS: LISINOPRIL 20 MG TAB PO SCH (10:02)
[2017-12-24] MEDS: CARVEDILOL 12.5 MG TAB PO SCH (10:04)
--- NOTE | 2017-12-24 10:51 | HHI.PR ---
Addendum to Inpatient Note Addendum Reason: Additional Documentation Additional Information Resident team paged at at 10:28 by nurse. Patient states that she is having blurry vision in her left eye. We went to evaluate patient. Patient states that she is having blurry vision in her left eye. She states that the blurry vision is old and nothing new. She can't remember when she started to have the blurry vision. It was difficult to illicit information from the patient due to her baseline confusion. She endorse pressure like pain in her eye. She denies DEAL, double vision, weakness in extremities,CP, and SOB. Gen: lying in bed, in NAD Eyes: Difficult to illicit light reflex in b/l eyes, EOMI, no discharge seen, conjuctiva appeared normal Neuro: CN 2-12 intact, strength and sensation wnl, pulses 2+ , alert and awake A/P: 47 yr old F with DM, ESRD on dialysis, CHF, and PAD complaining of blurry vision, likely old -neuro exam wnl, no imaging needed at this time -neuro checks q4h, will consider CT of head if neuro status change is seen patelw Dr. Johnston (Zeinab Sheldon MD R1) Zeinab Sheldon MD R1 December 24, 2017 10:51 Everardo Ricketts MD December 26, 2017 12:23
--- NOTE | 2017-12-24 11:36 | ECHRPT ---
Indication: Heart failure, unspecified CONCLUSIONS Normal left ventricular size. Mild concentric left ventricular hypertrophy. No regional wall motion abnormalities are present. Doppler parameters are consistent with impaired left ventricular relaxtion (grade 1 diastolic dysfun ction). No mitral valve regurgitation. The pulmonary valve is not well visualized. BP: 131 / 59 HR: 66 Rhythm: MEASUREMENTS (Male / Female) Normal Values Technical Quality: 2D ECHO LV Diastolic Diameter PLAX 4.1 cm 4.2 - 5.9 / 3.9 - 5.3 cm LV Systolic Diameter PLAX 2.8 cm IVS Diastolic Thickness 1.9 cm 0.6 - 1.0 / 0.6 - 0.9 cm LVPW Diastolic Thickness 1.4 cm 0.6 - 1.0 / 0.6 - 0.9 cm LV Relative Wall Thickness 0.8 FINDINGS LEFT VENTRICLE Normal left ventricular size. Mild concentric left ventricular hypertrophy. The left ventricular systolic function is normal with an estimated ejection fraction in the range of 60-65%. No regional wall motion abnormalities are present. Doppler parameters are consistent with impaired left ventricular relaxtion (grade 1 diastolic dysfun ction). RIGHT VENTRICLE Normal right ventricular size and systolic function. LEFT ATRIUM The left atrial size is normal. RIGHT ATRIUM The right atrial size is normal. ATRIAL SEPTUM Normal atrial septal thickness without atrial level shunting by limited color doppler interrogation. AORTA The aortic root and proximal ascending aorta are normal in size on limited imaging. MITRAL VALVE Structurally normal mitral valve. No mitral valve regurgitation. AORTIC VALVE Trileaflet aortic valve. No aortic valve stenosis or regurgitation. TRICUSPID VALVE Structurally normal tricuspid valve. No tricuspid valve stenosis or regurgitation. PULMONARY VALVE The pulmonary valve is not well visualized. VESSELS The inferior vena cava is normal in size. PERICARDIUM No pericardial effusion. Eliel Duenas MD, FACC (Electronically Signed) Final Date:24 Dec 2017 11:35
[2017-12-24] MEDS ORDERED: RESP: ALBUTEROL 2.5 MG/IPRATROPIUM 0.5 MG NEB (SCH) NEB (12:00)
[2017-12-24] MEDS ORDERED: VANCOMYCIN 500 MG VIAL (FOR ORAL USE ONLY) PO SCH (13:00)
--- NOTE | 2017-12-24 13:31 | HHI.FF ---
Face to Face Verification Diagnosis: (1) CHF exacerbation (2) ESRD (end stage renal disease) on dialysis (3) PAD (peripheral artery disease) (4) Diabetes Home Health Nursing Order: Medical education Signs/symptoms of disease process Diabetic education CHF education Oxygen administration education Medication education-adverse effect Nursing assessment with vital signs I have seen patient Summer Laguerre on 12/24/17. My clinical findings support the need for the requested home health care services because: Ltd mobility - disease progression Patient has SOB Deconditioned w/ increased weakness Med compliance is questionable Limited ability to care for self High risk of falls I certify that my clinical findings support that this patient is homebound because: Impaired cognitive ability/safety Hx COPD- exertion dyspnea/weakness Unsteady gait/balance Unsafe to leave home unassisted Need for psychosocial assistance Zeinab Sheldon MD R1 December 24, 2017 13:31 Everardo Ricketts MD December 25, 2017 12:46
[2017-12-24] MEDS ORDERED: OXYGENTANK NAS.CANULA ×2 (13:32→13:51)
[2017-12-24] MEDS ORDERED: ZOLO100T PO (13:34)
[2017-12-24] MEDS ORDERED: VANC125C3 PO (13:50)
--- NOTE | 2017-12-24 13:54 | HHI.DS ---
Zeinab Sheldon MD R1 12/24/17 1354: Discharge Summary Admission Date December 20, 2017 at 17:09 Admitting Diagnosis (1) Altered mental status Plan: Multiple potential etiologies including stroke versus hyperammonemia versus toxicity versus bacteremia versus ACS versus other Labs: ammonia, acetaminophen level, troponin normal Blood cultures no growth to date MRI brain negative on admission PT/ST recommending home with home health physical therapy ICD Codes: R41.82 - Altered mental status, unspecified Status: Acute (2) ESRD (end stage renal disease) on dialysis Plan: Nephrology on board for dialysis management Patient received dialysis yesterday.Currently on dialysis Saturday Potassium wnl today at 4.3. Creatinine decreased to 5.34. Patient is cleared from nephrology standpoint. ICD Codes: N18.6 - End stage renal disease; Z99.2 - Dependence on renal dialysis Status: Chronic (3) Hypoglycemia Plan: -Serum glucose of 47 mg/dl on 11/24, serum glucose 67 this a.m. -Breakfast tray at bedside - patient encouraged to eat ICD Codes: E16.2 - Hypoglycemia, unspecified Status: Acute (4) Depression Plan: Patient reporting symptoms of depression, no suicidal ideation or intent to hurt herself. She also has chronic pain for which she takes un-prescribed opiates. Psychiatry was consulted on 12/21. Zoloft dosage was increased to 125mg PO daily and outpatient therapy recommended after discharge However, holding Zoloft for now due to confusion ICD Codes: F32.9 - Major depressive disorder, single episode, unspecified Status: Chronic (5) Diabetes Plan: Glucose 115 on admission Per chart, patient normally on Levemir 5 units twice daily Patient has been mildly hypoglycemic since admission Continue Accu-Cheks, hypoglycemia protocol, sliding scale insulin ICD Codes: E11.9 - Type 2 diabetes mellitus without complications Status: Chronic (6) CHF (congestive heart failure) Plan: Known history of CHF BNP on admission 495 No signs of fluid overload on physical exam Echocardiogram pending ICD Codes: I50.9 - Heart failure, unspecified (7) PAD (peripheral artery disease) Plan: Continue Plavix 75 mg by mouth daily ICD Codes: I73.9 - Peripheral vascular disease, unspecified Status: Acute (8) Tobacco abuse Plan: [employer] cessation when patient becomes more alert Consider nicotine patch ICD Codes: Z72.0 - Tobacco use Status: Chronic (9) Hypertension Plan: continue lisinopril, amlodipine, coreg ICD Codes: I10 - Essential (primary) hypertension Status: Chronic (10) Diarrhea Plan: Patient with diarrhea and abdominal cramping. Prior history of C. difficile infection C. difficile positive. cryptosporidum and giardia negative. No bowel movements recorded since admission Discontinued PO vancomycin 125 mg 4 times a day- started on 12/22. Continue probiotic Will restart constipation protocol ICD Codes: R19.7 - Diarrhea, unspecified Status: Resolved (11) FEN/DVT PPX/GI PPX/Nursing Orders Plan: Fluids: No IV fluids for now Electrolyte: Monitor and replace as needed Nutrition: Diabetic diet Prophylaxis: Continue Eliquis 2.5 mg p.o. twice daily Status: Acute Brief History 47-year-old female with a past medical history including end-stage renal disease on hemodialysis Saturday/Saturday/Saturday,, diabetes mellitus with retinopathy, peripheral vascular disease, peripheral arterial disease, presents via EMS with altered mental status. She is well known to [place] with multiple admissions in the past. History severely limited secondary to mental state. History mostly obtained from brother and mother who are at the bedside. Her brother states that the patient was feeling well earlier today. She went to hemodialysis as normal. After hemodialysis her brother was pushing her in her wheelchair to get a black and mild cigar. At that time, the patient was complaining of some nausea but was otherwise well. After visiting the 711 she was feeling better. At the house her brother left her for 5 minutes and upon returning she was minimally responsive and "barely breathing." It is at that time they called EMS. Reportedly, the patient took "part of her friends 8 mg Dilaudid." She also reportedly took 2 extra strength Tylenol earlier in the day. The patient did not respond to Narcan administration 2. ABG is mostly within normal limits. Upon our interview at 1600, the patient is arousable and alert and oriented [address], but not to time. She reports that she is not suicidal. History limited secondary to mental state. She is very drowsy and in and out of wakefulness. CBC/BMP: 12/24/17 0400 12/24/17 0500 Significant Findings Laboratory Tests Test 12/21/17 14:15 12/21/17 16:40 12/22/17 04:16 12/23/17 05:15 Stool C. difficile Toxin (PCR) POSITIVE (NEGATIVE) Potassium Level 5.5 MEQ/L (3.5-5.1) 6.3 MEQ/L (3.5-5.1) Red Blood Count 3.73 MIL/MM3 (4.00-5.30) 3.67 MIL/MM3 (4.00-5.30) Hemoglobin 11.5 GM/DL (11.6-15.3) 11.1 GM/DL (11.6-15.3) Hematocrit 34.9 % (35.0-46.0) 34.4 % (35.0-46.0) Red Cell Distribution Width 17.3 % (11.6-17.2) Neutrophils (%) (Auto) 71.0 % (16.0-70.0) Monocytes (%) (Auto) 9.9 % (0.0-8.0) 13.6 % (0.0-8.0) Lymphocytes # (Auto) 0.9 TH/MM3 (1.0-4.8) 0.7 TH/MM3 (1.0-4.8) Blood Urea Nitrogen 54 MG/DL (7-18) 45 MG/DL (7-18) Creatinine 7.74 MG/DL (0.50-1.00) 7.03 MG/DL (0.50-1.00) Random Glucose 71 MG/DL (74-106) 43 MG/DL (74-106) Phosphorus Level 9.0 MG/DL (2.5-4.9) Sodium Level 135 MEQ/L (136-145) Chloride Level 95 MEQ/L (98-107) 96 MEQ/L (98-107) Estimat Glomerular Filtration Rate 6 ML/MIN (>89) 6 ML/MIN (>89) Test 12/23/17 12:39 12/23/17 22:07 12/24/17 04:00 12/24/17 05:00 Blood Gas HCO3 30 mmol/L (22-26) Blood Gas Base Excess 4.9 mmol/L (-2-2) Blood Gas Oxygen Saturation 82 % (90-100) Arterial Blood Partial Pressure CO2 49 mmHg (38-42) Arterial Blood Partial Pressure O2 53 mmHg (61-120) Blood Gas Hemoglobin 10.7 G/DL (12.0-16.0) Red Blood Count 3.82 MIL/MM3 (4.00-5.30) Hemoglobin 11.4 GM/DL (11.6-15.3) Blood Urea Nitrogen 26 MG/DL (7-18) Creatinine 5.34 MG/DL (0.50-1.00) Random Glucose 67 MG/DL (74-106) Chloride Level 95 MEQ/L (98-107) Estimat Glomerular Filtration Rate 9 ML/MIN (>89) Test 12/24/17 10:36 PE at Discharge GENERAL: Female who appears older than stated age, resting comfortably, appears uncomfortable. Answers some questions EYES: Small pupils SKIN: Cool and dry. HEAD: Atraumatic. Normocephalic. No temporal or scalp tenderness. CARDIOVASCULAR: Regular rate and rhythm without murmurs, gallops, or rubs. RESPIRATORY: Clear to auscultation. Breath sounds equal bilaterally. No wheezes , rales, or rhonchi. Currently on 3 L nasal cannula. GASTROINTESTINAL: Abdomen soft, nondistended. No hepato-splenomegaly, or palpable masses. No guarding. MUSCULOSKELETAL: Right BKA, stump appears intact. 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 Sensation and motor function intact. No joint tenderness, effusion, or edema noted. No left lower extremity calf tenderness. NEUROLOGICAL: Awake and alert. oriented to person and place. Hospital Course 47-year-old female with ESRD on dialysis, diabetes, congestive heart failure, PAD, depression admitted for altered mental status on 12/20. Stroke workup was negative. MRI of brain negative on admission. Nephrology was consulted. Patient received dialysis while in the hospital. Patient's renal function improved following dialysis. Psychiatry was consulted on patient's depression. Zoloft dosage was increased to 125 mg p.o. daily. Zoloft was held for a short time in the hospital due to confusion. However it is recommended that patient continue Zoloft after discharge. Patient was positive for C. difficile. Patient was treated with p.o. vancomycin. Advised patient to continue vancomycin taper for C. difficile upon discharge. Patient was given probiotics. Patient was therefore determined stable and discharged on 12/24. Pt Condition on Discharge: Stable Discharge Disposition: Disch w/ Home Health Serv Discharge Instructions Follow up Referrals: Appointment for Follow Up @ DR. [facility]IN[facility]ph[facility] - 1 Week PCP Follow-up - 1 Week PCP Follow-up @ [facility]/ with [facility] Home New Medications: Oxygen tank (Oxygen tank) 1 Ea Tank LITER LUZMARIA.CANULA CONTINUOUS for HYPOXEMIA PREVENTION, #3 Oxygen Concentrator Portable Gaseous 2 L/min via Nasal Cannula Continuous For 99 months Vancomycin (Vancomycin) 125 Mg Cap 125 MG PO QID for Infection, #70 CAP 0 Refills Take three times a day for 10 days, then twice a day for 7 days, then daily for 7 days, then every 2-3 days for 2 weeks Lactobacillus Acidophilus (Acidophilus/l-Sporogenes) 35 Million Cell-25 Million Cell Tab 1 TAB PO Q12HR, #30 TAB Sertraline (Zoloft) 100 Mg Tab 125 MG PO DAILY, #30 TAB Changed Medications: Docusate Sodium (Colace) 100 Mg Capsule 100 MG PO BID, #30 CAP 0 Refills (Changed from: Refills: ) Continued Medications: Amlodipine (Norvasc) 5 Mg Tab 5 MG PO DAILY for HTN for 30 Days, #30 TAB (This prescription has been renewed) Apixaban (Eliquis) 2.5 Mg Tab 2.5 MG PO BID for Blood Clot Prevention, #30 TAB 0 Refills (This prescription has been renewed) B-Complex W/ C & Folic Acid (Nephro-Lory) 1 Tab 1 TAB PO DAILY for Nutritional Supplement, #30 TAB 0 Refills (This prescription has been renewed) Calcium Acetate (Phosphate Bin (Calcium Acetate) 667 Mg Cap 667 MG PO TID for ESRD for 30 Days, #90 CAP Carvedilol (Coreg) 25 Mg Tab 25 MG PO BID, #60 TAB 0 Refills (This prescription has been renewed) Cholecalciferol (Vitamin D3) 5,000 Unit Cap 5000 UNITS PO DAILY for vit D, #30 CAP (This prescription has been renewed) Clopidogrel (Plavix) 75 Mg Tab 75 MG PO DAILY for Blood Clot Prevention, #90 TAB 11 Refills (This prescription has been renewed) Insulin Detemir Inj (Levemir Inj) 1,000 unit/ 10 ML Vial 5 UNITS SQ BID, #1 BOTTLE 0 Refills (This prescription has been renewed) Do not mix with any other Insulin. Lisinopril (Lisinopril) 20 Mg Tab 20 MG PO BID, #30 TAB 0 Refills (This prescription has been renewed) Nicotine Patch (Nicotine Patch) 7 Mg/24 Hr Patch 7 MG T-DERMAL DAILY for Smoking Cessation, #30 PATCH 5 Refills Omeprazole (Omeprazole) 40 Mg Cap 40 MG PO DAILY, #30 CAP 5 Refills (This prescription has been renewed) Discontinued Medications: Sertraline (Sertraline) 100 Mg Tab 100 MG PO DAILY, #30 TAB 0 Refills Everardo Ricketts MD 12/26/17 1223: Discharge Summary CBC/BMP: 12/24/17 0400 12/24/17 0500 Discharge Instructions Follow up Referrals: Appointment for Follow Up @ [facility] - 1 Week PCP Follow-up - 1 Week PCP Follow-up @ [facility]/ with [facility] New Medications: Oxygen tank (Oxygen tank) 1 Ea Tank LITER LUZMARIA.CANULA CONTINUOUS for HYPOXEMIA PREVENTION, #3 Oxygen Concentrator Portable Gaseous 2 L/min via Nasal Cannula Continuous For 99 months Vancomycin (Vancomycin) 125 Mg Cap 125 MG PO QID for Infection, #70 CAP 0 Refills Take three times a day for 10 days, then twice a day for 7 days, then daily for 7 days, then every 2-3 days for 2 weeks Lactobacillus Acidophilus (Acidophilus/l-Sporogenes) 35 Million Cell-25 Million Cell Tab 1 TAB PO Q12HR, #30 TAB Sertraline (Zoloft) 100 Mg Tab 125 MG PO DAILY, #30 TAB Changed Medications: Docusate Sodium (Colace) 100 Mg Capsule 100 MG PO BID, #30 CAP 0 Refills (Changed from: Refills: ) Continued Medications: Amlodipine (Norvasc) 5 Mg Tab 5 MG PO DAILY for HTN for 30 Days, #30 TAB (This prescription has been renewed) Apixaban (Eliquis) 2.5 Mg Tab 2.5 MG PO BID for Blood Clot Prevention, #30 TAB 0 Refills (This prescription has been renewed) B-Complex W/ C & Folic Acid (Nephro-Lory) 1 Tab 1 TAB PO DAILY for Nutritional Supplement, #30 TAB 0 Refills (This prescription has been renewed) Calcium Acetate (Phosphate Bin (Calcium Acetate) 667 Mg Cap 667 MG PO TID for ESRD for 30 Days, #90 CAP Carvedilol (Coreg) 25 Mg Tab 25 MG PO BID, #60 TAB 0 Refills (This prescription has been renewed) Cholecalciferol (Vitamin D3) 5,000 Unit Cap 5000 UNITS PO DAILY for vit D, #30 CAP (This prescription has been renewed) Clopidogrel (Plavix) 75 Mg Tab 75 MG PO DAILY for Blood Clot Prevention, #90 TAB 11 Refills (This prescription has been renewed) Insulin Detemir Inj (Levemir Inj) 1,000 unit/ 10 ML Vial 5 UNITS SQ BID, #1 BOTTLE 0 Refills (This prescription has been renewed) Do not mix with any other Insulin. Lisinopril (Lisinopril) 20 Mg Tab 20 MG PO BID, #30 TAB 0 Refills (This prescription has been renewed) Nicotine Patch (Nicotine Patch) 7 Mg/24 Hr Patch 7 MG T-DERMAL DAILY for Smoking Cessation, #30 PATCH 5 Refills Omeprazole (Omeprazole) 40 Mg Cap 40 MG PO DAILY, #30 CAP 5 Refills (This prescription has been renewed) Discontinued Medications: Sertraline (Sertraline) 100 Mg Tab 100 MG PO DAILY, #30 TAB 0 Refills Zeinab Sheldon MD R1 December 24, 2017 13:54 Everardo Ricketts MD December 26, 2017 12:23
--- NOTE | 2017-12-24 13:54 | HHI.DCPOC ---
Discharge Care Plan Diagnosis: (1) CHF (congestive heart failure) (2) ESRD on dialysis (3) PAD (peripheral artery disease) (4) Hypertension (5) Diabetes Goals to Promote Your Health * To prevent worsening of your condition and complications * To maintain your health at the optimal level Directions to Meet Your Goals Take your medications as prescribed Follow your dietary instruction Follow activity as directed Keep your appointments as scheduled Take your immunizations and boosters as scheduled If your symptoms worsen call your PCP, if no PCP go to Urgent Care Center or Emergency Room Smoking is Dangerous to Your Health. Avoid second hand smoke Call the 24-hour hour crisis hotline for domestic abuse at Zeinab Sheldon MD R1 December 24, 2017 13:54 Everardo Ricketts MD December 25, 2017 12:46
[2017-12-24] MEDS ORDERED: CORE25TA PO (13:58)
[2017-12-24] MEDS ORDERED: LISI-515 PO (13:58)
[2017-12-24] MEDS ORDERED: OMEP40CA2 PO (13:58)
[2017-12-24] MEDS ORDERED: APIX2.5T PO (13:58)
[2017-12-24] MEDS ORDERED: AMLO5 PO (13:58)
[2017-12-24] MEDS ORDERED: COLA100C5 PO (13:58)
[2017-12-24] MEDS ORDERED: CHOL5000 PO (13:58)
[2017-12-24] MEDS ORDERED: PLAV75TA29 PO (13:58)
[2017-12-24] MEDS ORDERED: NEPHTAB3 PO (13:58)
[2017-12-24] MEDS ORDERED: LACT PO (13:58)
[2017-12-24] MEDS ORDERED: LEVEMIR SQ (13:58)
--- NOTE | 2017-12-24 14:24 | HHI.NPPN ---
Subjective General Problems: Anemia Renal Failure: End Stage Renal Disease History of Present Illness Patient is a 47-year-old female with a past medical history including end-stage renal disease on hemodialysis Saturday/Saturday/Saturday, diabetes mellitus with retinopathy, peripheral vascular disease, peripheral arterial disease,essential hypertension, dyslipidemia, Hepatitis C, History of calciphylaxis, coronary artery disease, and depression. Presents to emergency room with altered mental status. Nephrology is consulted for management of end stage renal disease on hemodialysis. Last hemodialysis was done yesterday with right arm AVF. 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 Patient was noted to be hyperkalemic at 5.9 and Kayexalate was given. Additional Remarks Up out of bed with no complaints. (Raquel Cerda) Objective Data Data Vital Signs Date Time Temp Pulse Resp B/P (MAP) Pulse Ox O2 Delivery O2 Flow Rate FiO2 12/24/17 13:01 162/72 (102) 12/24/17 12:00 98.2 71 18 173/80 (111) 98 12/24/17 11:57 3.00 12/24/17 11:57 97 Nasal Cannula 3.00 12/24/17 09:00 98.6 70 18 165/70 (101) 93 12/24/17 07:00 Nasal Cannula 2.00 12/24/17 06:00 97.4 71 16 174/73 (106) 99 12/24/17 04:00 71 12/24/17 00:00 98.6 72 17 144/62 (89) 96 12/24/17 00:00 74 12/23/17 20:00 98.5 72 16 147/62 (90) 93 12/23/17 20:00 Nasal Cannula 2.00 12/23/17 20:00 72 12/23/17 16:00 98.2 73 18 154/69 (97) 91 12/23/17 16:00 71 (Raquel Cerda) -: 12/24/17 0400 12/24/17 0500 Physical Exam General Appearance: No Acute Distress, Comfortable (Raquel Cerda) Eyes Eye Exam: Pupils Equal (Raquel Cerda) Pulmonary Resp Exam: Breath Sounds Equal, No Distress, Decreased Bases (Raquel Cerda) Gastrointestinal/Abdomen GI Exam: Non-Tender, Bowel Sounds Present (Raquel Cerda) Genitourinary Exam: Flank Non-Tender (Raquel Cerda) Integumentary Skin Exam: Clear, Warm, Dry (Raquel Cerda) Extremeties Extremities Exam: No Edema Extremeties Remarks Right BKA (Raquel Cerda) Neurologic Neuro Exam: Alert, Awake (Raquel Cerda) Psychiatric Psych Remarks delayed responses (Raquel Cerda) Assessment/Plan Problem List: (1) ESRD (end stage renal disease) on dialysis ICD Codes: N18.6 - End stage renal disease; Z99.2 - Dependence on renal dialysis Status: Chronic Plan: End stage renal disease on hemodialysis Saturday, Saturday, and Saturday Last hemodialysis was done yesterday with right arm AVF. AVF with good thrill and bruit Plan Hemodialysis yesterday with UF of 3 liters Continue PhosLo PO4 is elevated Avoid IVF administration Plans for discharge underway. Dialysis at [facility] tomorrow if discharged. (2) Diabetes ICD Codes: E11.9 - Type 2 diabetes mellitus without complications Status: Chronic Plan: Maintain blood sugar between 14O to 180 mg/dl (3) Hypertension ICD Codes: I10 - Essential (primary) hypertension Status: Chronic Plan: Will monitor (Raquel Cerda) Problem List: (1) ESRD (end stage renal disease) on dialysis ICD Codes: N18.6 - End stage renal disease; Z99.2 - Dependence on renal dialysis Status: Chronic Plan: End stage renal disease on hemodialysis Saturday, Saturday, and Saturday Last hemodialysis was done yesterday with right arm AVF. AVF with good thrill and bruit Plan Hemodialysis yesterday with UF of 3 liters Continue PhosLo PO4 is elevated Avoid IVF administration Plans for discharge underway. Dialysis at [facility] tomorrow if discharged. Patient to continue HD as out patient. To follow with Dr. Mason. (2) Diabetes ICD Codes: E11.9 - Type 2 diabetes mellitus without complications Status: Chronic Plan: Maintain blood sugar between 14O to 180 mg/dl (3) Hypertension ICD Codes: I10 - Essential (primary) hypertension Status: Chronic Plan: Will monitor (Brian Gaston MD) Problem Qualifiers (1) Diabetes: Qualified Codes: E11.22 - Type 2 diabetes mellitus with diabetic chronic kidney disease; N18.5 - Chronic kidney disease, stage 5; Z79.4 - [facility] ( current) use of insulin (2) Hypertension: Qualified Codes: I10 - Essential (primary) hypertension Raquel Cerda December 24, 2017 14:23 Brian Gaston MD December 24, 2017 21:19
--- NOTE | 2017-12-24 15:29 | RADRPT ---
EXAM DATE/TIME: 12/24/2017 14:55 [facility] COMPARISON: CHEST PA & LAT, June 18, 2017, 8:33. INDICATIONS : Chest pain. MEDICAL HISTORY : None. SURGICAL HISTORY : None. ENCOUNTER: Initial ACUITY: 2 days PAIN SCORE: 9/10 LOCATION: middle chest. FINDINGS: PA and lateral views of the chest demonstrate the lungs to be symmetrically aerated without evidence of mass, infiltrate or effusion. The cardiomediastinal contours are unremarkable. Osseous structure s are intact. Scarring at the right lung base. CONCLUSION: No acute disease. Christiano Cramer MD on December 24, 2017 at 15:26 Board Certified Radiologist. This report was verified electronically.
== END 2017-12-24 17:42 | disposition home health service (06) | DRG 291 ==
LOC: NEPC 13:25 → INTOOBSV 17:09 → NEDA 17:09 → OBSVTOIN 17:09 → N04A 17:50
PROVIDERS: ADMIT Family Medicine; ATTEND Family Medicine
PROC: 5A1D70Z Performance of Urinary Filtration, Intermittent, Less than 6 Hours Per Day (ICD-10-PCS; principal; 2017-12-23)
DX: I13.2 Hypertensive heart and chronic kidney disease with heart failure and with stage 5 chronic kidney disease, or end stage renal disease (principal); N18.6 End stage renal disease; E11.22 Type 2 diabetes mellitus with diabetic chronic kidney disease; A04.72 Enterocolitis due to Clostridium difficile, not specified as recurrent; I50.32 Chronic diastolic (congestive) heart failure; E11.51 Type 2 diabetes mellitus with diabetic peripheral angiopathy without gangrene; R41.82 Altered mental status, unspecified; R06.03 Acute respiratory distress; E78.00 Pure hypercholesterolemia, unspecified; K21.9 Gastro-esophageal reflux disease without esophagitis; E11.319 Type 2 diabetes mellitus with unspecified diabetic retinopathy without macular edema; E78.5 Hyperlipidemia, unspecified; B19.20 Unspecified viral hepatitis C without hepatic coma; I25.10 Atherosclerotic heart disease of native coronary artery without angina pectoris; F32.9 Major depressive disorder, single episode, unspecified; E87.5 Hyperkalemia; G89.29 Other chronic pain; E11.649 Type 2 diabetes mellitus with hypoglycemia without coma; M79.7 Fibromyalgia; R63.0 Anorexia; D64.9 Anemia, unspecified; H54.7 Unspecified visual loss; F19.90 Other psychoactive substance use, unspecified, uncomplicated; F12.90 Cannabis use, unspecified, uncomplicated; F17.210 Nicotine dependence, cigarettes, uncomplicated; Z79.01 Long term (current) use of anticoagulants; Z90.5 Acquired absence of kidney; Z79.02 Long term (current) use of antithrombotics/antiplatelets; Z89.511 Acquired absence of right leg below knee; Z79.4 Long term (current) use of insulin; Z91.5 Personal history of self-harm; Z99.2 Dependence on renal dialysis
CPT/HCPCS: 36600; 70450; 70551; 71046; 74018; 80048; 80053; 80307; 82140; 82805; 82948; 83880; 84100; 84132; 84443; 84484; 85025; 85027; 87040; 87328; 87329; 87493; 90935; 93005; 93308; 94618; 94664; 99291; 99292; J2310; J2405; P9047

== ENCOUNTER 2018-02-23 17:30 | Inpatient (IN) ==
[2018-02-23] MEDS ORDERED: Morphine Inj 4 MG/ML Vial IV.PUSH ONE (19:33)
[2018-02-23 20:11] LABS: Baso # (Auto) 0.1 th/mm3 (0.0-0.2); Baso % (Auto) 0.9 % (0.0-2.0); Eos # (Auto) 0.3 th/mm3 (0.0-0.4); Eos % (Auto) 2.6 % (0.0-4.0); Hematocrit 35.3 % (35.0-46.0); Hemoglobin 11.6 gm/dL (11.6-15.3); Lymph # (Auto) 0.9 th/mm3 (1.0-4.8); Lymph % (Auto) 9.3 % (9.0-44.0); Mean Corpuscular HGB Conc 32.9 % (32.0-36.0); Mean Corpuscular Hemoglobin 29.9 pg (27.0-34.0); Mean Corpuscular Volume 91.1 fL (80.0-100.0); Mean Platelet Volume 7.7 fL (7.0-11.0); Mono # (Auto) 0.9 th/mm3 (0.0-0.9); Mono % (Auto) 8.9 % (0.0-8.0); Neut # (Auto) 7.7 th/mm3 (1.8-7.7); Neut % (Auto) 78.3 % (16.0-70.0); Platelet Count 323 th/mm3 (150-450); Red Blood Count 3.88 mil/mm3 (4.00-5.30); Red Cell Distribution Width 16.5 % (11.6-17.2); White Blood Count 9.8 th/mm3 (4.0-11.0)
[2018-02-23] MEDS: Clindamycin 600 mg/NS Premix 600 MG/50 ML PIGGYBACK IV.SIG SCH (20:26)
[2018-02-23 20:33] LABS: Albumin 3.4 g/dL (3.4-5.0); Anion Gap 18 meq/L (5-15); Aspartate Aminotransferase 10 U/L (15-37); Blood Urea Nitrogen 73 mg/dL (7-18); Calcium 9.3 mg/dL (8.5-10.1); Carbon Dioxide 17.2 meq/L (21.0-32.0); Chloride 99 meq/L (98-107); Glomerular Filtration Rate 4 mL/min (>89); Glucose,Random 215 mg/dL (74-106); Potassium 5.6 meq/L (3.5-5.1); Sodium 134 meq/L (136-145)
[2018-02-23 20:35] LABS: Alanine Aminotransferase 14 U/L (10-53)
[2018-02-23 20:36] LABS: Alkaline Phosphatase 182 U/L (45-117); Total Protein 8.9 g/dL (6.4-8.2)
--- NOTE | 2018-02-23 21:23 | CT ---
EXAM DATE: 02/23/2018 9:08 PM EDT AGE/SEX: 47 years / Female INDICATIONS: Right facial abscess that started as an ingrown hair one week ago. Patient now complai ns of fever and difficulty swallowing. CLINICAL DATA: This is the patient's initial encounter. Patient reports that signs and symptoms have been present for 1 week and indicates a pain score of 7/10. MEDICAL/SURGICAL HISTORY: Renal failure, chronic. Hypertension. Cholecystectomy. Bilateral BKA RADIATION DOSE: 56.35 CTDI (mGy) COMPARISON: No prior exams available for comparison. TECHNIQUE: Helical acquisition was performed using a multirow detector CT scanner without contrast. Using automated exposure control and adjustment of the mA and/or kV according to patient size, radiat ion dose was kept as low as reasonably achievable to obtain optimal diagnostic quality images. DICOM format image data is available electronically for review and comparison. FINDINGS: There is a mass in the subcutaneous fat seen at the anterior right lower face at the level the mandible. This main area measures 2 cm in diameter. This does appear to be a linear soft tissue density extending posteriorly. There are some scattered smaller areas of low density seen inferior to this mass. There is induration seen in the subcutaneous fat in this region. There is skin thickening in this region. This all likely represents a manifestation of infection. A well-formed abscess is no t seen. The densities are likely inflammatory in nature. There are mildly prominent right submental/s ubmandibular lymph nodes present. There are prominent lymph nodes in the right anterior triangle epi on. There is a separate area of focal skin thickening seen in the more superior posterior right side of the face adjacent to the inferior aspect of the parotid measuring 1.1 x 0.4 cm in size likely rela vazquez to a focal skin lesion in this region. Underlying inflammatory change is not seen in this area. The nasopharynx, oropharynx and hypopharynx and glottic structures are normal. The thyroid is normal. Orbits and sinuses are intact. The parotid and submandibular glands are normal. CONCLUSION: 1. Prominent area of induration with areas of low density mass seen in the anterior inferior right f nina at the level the mandible consistent with infection/inflammatory change. A well-formed abscess is not seen at this point. There is associated adenopathy. 2. Small separate focal area of skin thickening or skin lesion at the more posterior superior right side of the face adjacent to the parotid gland. Electronically signed by: Abhijit White MD 02/23/2018 9:22 PM EDT
[2018-02-23] MEDS ORDERED: Dextrose 50% in Water 50 ML Vial IV.PUSH PRN (22:12)
[2018-02-23] MEDS ORDERED: Bisacodyl 10 MG Supp RECTAL PRN (22:13)
[2018-02-23] MEDS ORDERED: Acetaminophen 325 MG Tablet PO PRN (22:13)
--- NOTE | 2018-02-23 22:15 | P.HPIM ---
History of Present Illness Primary Care Physician: Shannan Garcia MD History of Present Illness: This is a 47-year-old female with a PMH of HTN, DM and ESRD on HD M/W/ who presented to the ER w/ complaints of right-sided facial swelling and pain. States symptoms started approximately 1wk ago, thought it was due to "ingrown hair", attempted to pop it, now progressively worse w/ increased swelling/ tenderness. Notes some drainage. Denies fever, chills. On arrival, BP 139/77 , HR 85, O2 sat 91% on 3L NC, Temp 99.2. CBC essentially unremarkable. Creatinine 10.69, previous E5.34 on 12/24/2017. CT Neck w/ prominent area of induration inferior right face at level of mandible consistent with infection/ inflammatory change, no abscess seen. Dr. Tee consulted by ER physician, recommended consultation w/ Plastic Surgery for possible intervention. - Diagnosis (1) Facial cellulitis (2) DM (diabetes mellitus) (3) ESRD (end stage renal disease) on dialysis Inpatient Certification: I certify that the inpatient services were ordered in accordance with Medicare regulations governing the order. This includes certification that hospital inpatient services are reasonable and necessary and in the case of services not specified as inpatient-only under 42 CFR 419.22(n), that they are appropriately provided as inpatient services in accordance to with the 2-midnight benchmark under 43 CFR 412.3(e) Review of Systems All other systems reviewed negative except as stated in HPI PMFSH - History History Provided By: Patient - Medical History Medical History: Medical History (Last Updated 02/23/18 @ 18:42 by Fred Fontana) Dialysis patient Fistula History of Clostridium difficile infection History of MRSA infection Hypertension Infarction of spleen Renal failure - Surgical History Surgical History: Surgical History (Last Updated 02/23/18 @ 18:42 by Fred Fontana) Amputated below knee History of eye surgery Hx of cholecystectomy - Tobacco History Second Hand Smoke Exposure: No Tobacco Use In Past 30 Days: Yes Smoking Status: Current every day smoker Tobacco Type: Cigarettes - Alcohol History How Often Do You Have a Drink Containing Alcohol: Never - Travel History Recent Travel in the [place] Within the Last 8 Weeks: No Recent Travel Out of the Country Within the Last 8 Weeks: No - Immunization History Tetanus Immunization: Unsure Hx Influenza Vaccine This Season: Yes Medications and Allergies Active Medications: Active Medications Acetaminophen (Tylenol) 650 mg PO Q4H PRN PRN Reason: Temp > 100.4 Al Hydroxide/Mg Hydroxide (Milk Of Magnesia Liq) 30 ml PO Q12H PRN PRN Reason: Mild Constipation Bisacodyl (Dulcolax Supp) 10 mg RECTAL DAILY PRN PRN Reason: SEVERE CONSITIPATION Dextrose (D50w Vial) 50 ml IV.PUSH UNSCH PRN PRN Reason: PER HYPOGLYCEMIA PROTOCOL Glucagon (Glucagon Inj) 1 mg OTHER PRN PRN PRN Reason: for Hypoglycemia Protocol Heparin Sodium (Porcine) (Heparin Inj) 5,000 units SQ Q12H DENIS Clindamycin/Sodium Chloride (Cleocin 600 Mg/Ns Premix) 600 mg in 50 mls @ 100 mls/hr IV.SIG Q8H DENIS Stop: 02/24/18 12:44 Last Admin: 02/23/18 20:26 Dose: 100 mls/hr Insulin Aspart (Novolog Insulin Suppl Scale Inj) 0 unit SQ ACHS DENIS; Protocol Lactulose (Lactulose Liq) 30 ml PO DAILY PRN PRN Reason: SEVERE CONSITIPATION Morphine Sulfate (Morphine Inj) 2 mg IV.PUSH Q4H PRN PRN Reason: PAIN 6-10 Senna/Docusate Sodium (Areli-Colace) 1 tab PO BID DENIS Sennosides (Senokot) 17.2 mg PO Q12H PRN PRN Reason: Moderate Constipation Allergies Allergy/AdvReac Type Severity Reaction Status Date / Time codeine Allergy Severe HYPERACTIVITY Verified 02/23/18 18:50 &ITCH iodine Allergy Severe Atrial Verified 02/23/18 18:50 Fibrillation potassium iodide Allergy Severe TOPICAL/ITC Verified 02/23/18 18:50 H povidone-iodine Allergy Severe TOPICAL/ITC Verified 02/23/18 18:50 H sodium iodide Allergy Severe TOPICAL/ITC Verified 02/23/18 18:50 H sodium iodide Allergy Severe TOPICAL/ITC Verified 02/23/18 18:50 H iohexol Allergy Intermediate HIVES Verified 02/23/18 18:50 penicillin G Allergy Unknown Anaphylaxis Verified 02/23/18 18:50 Pork/Porcine Containing Allergy Unknown Anaphylaxis Verified 02/23/18 18:50 Products Home Medications Medication Instructions Recorded Confirmed Type Unable to Obtain Home Meds 02/23/18 02/23/18 History Exam Vital signs: Vital Signs 02/23/18 18:06 02/23/18 18:38 02/23/18 19:16 Temperature 99.2 F Pulse Rate 85 84 Respiratory Rate 18 20 Blood Pressure 179/77 H 192/77 H 172/91 H Pulse Oximetry 91 L 92 L 02/23/18 21:56 Temperature Pulse Rate 78 Respiratory Rate 18 Blood Pressure Pulse Oximetry 96 Intake & Output 02/23/18 02/23/18 02/24/18 06:59 18:59 06:59 Weight 95 kg Narrative: PE: GENERAL: Middle-aged white female in mild distress due to pain. HEENT: PERRLA, EOMI. No scleral icterus or conjunctival pallor. No lid lag or facial droop. Right facial swelling/erythema, mandibular lesion w/ drainage, tenderness to palpation. CARDIOVASCULAR: Regular rate and rhythm. No obvious murmurs to auscultation. No chest tenderness to palpation. RESPIRATORY: No obvious rhonchi or wheezing. Clear to auscultation. Breath sounds equal bilaterally. GASTROINTESTINAL: Abdomen soft, non-tender, nondistended. BS normal. MUSCULOSKELETAL: Extremities without clubbing, cyanosis, or edema. No obvious deformities. NEUROLOGICAL: Awake, alert and oriented x4. No focal neurologic deficits. Moving both upper and lower extremities spontaneously. Results - Labs CBC & Chem 7: 02/23/18 19:35 02/23/18 19:35 Labs: Short CBC 02/23/18 Range/Units 19:35 WBC 9.8 (4.0-11.0) th/mm3 Hgb 11.6 (11.6-15.3) gm/dL Hct 35.3 (35.0-46.0) % Plt Count 323 (150-450) th/mm3 [facility] 02/23/18 19:35 Sodium 134 L Potassium 5.6 H Chloride 99 Carbon Dioxide 17.2 L BUN 73 H Creatinine 10.69 H* Calcium 9.3 Liver Function 02/23/18 Range/Units 19:35 Total Bilirubin 0.4 (0.2-1.0) mg/dL AST 10 L (15-37) U/L ALT 14 (10-53) U/L Alkaline Phosphatase 182 H (45-117) U/L Albumin 3.4 (3.4-5.0) g/dL - Imaging Impressions Soft Tissue Neck CT 02/23/18 19:26 CONCLUSION: 1. Prominent area of induration with areas of low density mass seen in the anterior inferior right face at the level the mandible consistent with infection /inflammatory change. A well-formed abscess is not seen at this point. There is associated adenopathy. 2. Small separate focal area of skin thickening or skin lesion at the more posterior superior right side of the face adjacent to the parotid gland. Caprini VTE Risk Assessment Caprini VTE Risk Assessment: No/Low Risk (score <= 1) Caprini Risk Assessment Model: Point Value = 1 Point Value = 2 Point Value = 3 Point Value = 5 Age 41-60 Minor surgery BMI > 25 kg/m2 Swollen legs Varicose veins or History of unexplained or recurrent spontaneous Oral contraceptives or hormone replacement Sepsis (< 1 month) Serious lung disease, including pneumonia (< 1 month) Abnormal pulmonary function Acute myocardial infarction Congestive heart failure (< 1 month) History of inflammatory bowel disease Medical patient at bed rest Age 61-74 Arthroscopic surgery Major open surgery (> 45 min) Laparoscopic surgery (> 45 min) Malignancy Confined to bed (> 72 hours) Immobilizing plaster cast Central venous access Age >= 75 History of VTE Family history of VTE Factor V Leiden Prothrombin [id number] Lupus anticoagulant Anticardiolipin antibodies Elevated serum homocysteine Heparin-induced thrombocytopenia Other congenital or acquired thrombophilia Stroke (< 1 month) Elective arthroplasty Hip, pelvis, or leg fracture Acute spinal cord injury (< 1 month) Prophylaxis Regimen: Total Risk Factor Score Risk Level Prophylaxis Regimen 0-1 Low Early ambulation 2 Moderate Order ONE of the following: *Sequential Compression Device (SCD) *Heparin 5000 units SQ BID 3-4 Higher Order ONE of the following medications: *Heparin 5000 units SQ TID *Enoxaparin/Lovenox 40 mg SQ daily (WT < 150 kg, CrCl > 30 mL/min) *Enoxaparin/Lovenox 30 mg SQ daily (WT < 150 kg, CrCl > 10-29 mL/min) *Enoxaparin/Lovenox 30 mg SQ BID (WT < 150 kg, CrCl > 30 mL/min) AND/OR *Sequential Compression Device (SCD) 5 or more Highest Order ONE of the following medications: *Heparin 5000 units SQ TID (Preferred with Epidurals) *Enoxaparin/Lovenox 40 mg SQ daily (WT < 150 kg, CrCl > 30 mL/min) *Enoxaparin/Lovenox 30 mg SQ daily (WT < 150 kg, CrCl > 10-29 mL/min) *Enoxaparin/Lovenox 30 mg SQ BID (WT < 150 kg, CrCl > 30 mL/min) AND *Sequential Compression Device (SCD) Assessment and Plan - Assessment (1) Facial cellulitis Code(s): L03.211 - Cellulitis of face Status: Acute (2) DM (diabetes mellitus) Code(s): E11.9 - Type 2 diabetes mellitus without complications Status: Acute (3) ESRD (end stage renal disease) on dialysis Code(s): N18.6 - End stage renal disease; Z99.2 - Dependence on renal dialysis Status: Acute - Plan A/P: 1. Facial Cellulitis: swelling/edema to right face x1 wk, attempted to pop wound, now w/ worsening symptoms. CT Neck w/ prominent induration right mandible, no obvious abscess, images reviewed by me. Dr. Tee w/ ENT consulted by ER physician, recommended consultation w/ Plastic Surgery for possible intervention. IVF, analgesics/antiemetics, continue IV Clinda. 2. ESRD on HD: M/W/F, follows w/ Dr. Mason, will consult to resume HD as scheduled. 3. DM: Sliding scale w/ Accu-Cheks 4. DVT Prophylaxis: Heparin sq 5. Social work for d/c planning as needed 6. Case discussed w/ ER physician at length, labs/records/imaging reviewed by me.
--- NOTE | 2018-02-23 22:43 | ED ---
HPI General Chief complaint: Skin/Abscess/Foreign Body Stated complaint: Medical Time Seen by Provider: 02/23/18 19:08 Source: patient Mode of arrival: wheelchair Limitations: no limitations History of Present Illness HPI narrative: pt has 1 week worsening facial swelling that is not responded to topical antibiotics nor Vanco po she took from a friend , No airway compromise but she feels it pushing on her mandible and has pressure like pain , Has not seen another MD for this she is IDDM failing outpt treatment MD complaint: abscess/boil, lesion and discoloration Onset (ago): week(s) (1) Location: face and neck (right mandible ) Severity: moderate Pain Consistency: constant Relieving factors: none Exacerbating factors: none Associated symptoms: chills and myalgias Treatments prior to arrival: antibiotic (took a few days of vanco po from someone else ) Related Data Home Medications Medication Instructions Recorded Confirmed Unable to Obtain Home Meds 02/23/18 02/23/18 Allergies Allergy/AdvReac Type Severity Reaction Status Date / Time codeine Allergy Severe HYPERACTIVITY Verified 02/23/18 18:50 &ITCH iodine Allergy Severe Atrial Verified 02/23/18 18:50 Fibrillation potassium iodide Allergy Severe TOPICAL/ITC Verified 02/23/18 18:50 H povidone-iodine Allergy Severe TOPICAL/ITC Verified 02/23/18 18:50 H sodium iodide Allergy Severe TOPICAL/ITC Verified 02/23/18 18:50 H sodium iodide Allergy Severe TOPICAL/ITC Verified 02/23/18 18:50 H iohexol Allergy Intermediate HIVES Verified 02/23/18 18:50 penicillin G Allergy Unknown Anaphylaxis Verified 02/23/18 18:50 Pork/Porcine Containing Allergy Unknown Anaphylaxis Verified 02/23/18 18:50 Products Review of Systems Except as stated in HPI: all other systems reviewed are negative [facility] Medical History Medical History Dialysis patient (Acute) Fistula (Acute) History of Clostridium difficile infection (Acute) History of MRSA infection (Acute) Hypertension (Acute) Infarction of spleen (Acute) Renal failure (Acute) Surgical History Surgical History Amputated below knee (Acute) History of eye surgery (Acute) Hx of cholecystectomy (Acute) Social History Social History Substance History: Active Abuse Second Hand Smoke Exposure: Yes Smoking Status: Current every day smoker Tobacco Type: Cigarettes How Often Do You Have a Drink Containing Alcohol: Never Recent Travel in [facility] within the Last 8 Weeks: No Recent Out of Country Travel within the Last 8 Weeks: No Immunization History Tetanus Immunization: Unsure Hx Influenza Vaccine This Season: Yes Exam Neck Neck: not normal to visual inspection, anterior neck swelling, lymphadenopathy and tender Course Initial Documented Vital Signs Temperature 99.2 F 02/23/18 18:06 Pulse Rate 85 02/23/18 18:06 Respiratory Rate 18 02/23/18 18:06 Blood Pressure 179/77 H 02/23/18 18:06 Pulse Oximetry 91 L 02/23/18 18:06 Last Documented Vital Signs Temperature 98.7 F 02/27/18 12:00 Pulse Rate 85 02/27/18 12:00 Respiratory Rate 20 02/27/18 12:33 Blood Pressure 185/80 H 02/27/18 12:00 Pulse Oximetry 98 02/27/18 14:11 Medical Decision Making MDM Narrative Medical decision making narrative: pt need IV antibiotics for facial cellulitis and early abscess ENT consult but when I call [facility] he feels it is Plastics that would be consult if I and D needed CT shows mass but more consistent with thickened skin of cellulits no clear focal abscess at this time IV Clindamycin 600mg q 8 ordered by this MD and admit Differential Diagnosis Differential Diagnosis: facial cellulits vs abscess vs MRSA vs IDDM failing outpt treatment Lab Data Result diagrams: 02/26/18 06:06 02/26/18 06:06 Lab Results 02/23/18 02/23/18 02/24/18 Range/Units 19:35 19:35 08:26 WBC 9.8 (4.0-11.0) th/mm3 RBC 3.88 L (4.00-5.30) mil/mm3 Hgb 11.6 (11.6-15.3) gm/dL Hct 35.3 (35.0-46.0) % MCV 91.1 (80.0-100.0) fL MCH 29.9 (27.0-34.0) pg MCHC 32.9 (32.0-36.0) % RDW 16.5 (11.6-17.2) % Plt Count 323 (150-450) th/mm3 MPV 7.7 (7.0-11.0) fL Neut % (Auto) 78.3 H (16.0-70.0) % Lymph % (Auto) 9.3 (9.0-44.0) % [place] % (Auto) 8.9 H (0.0-8.0) % Eos % (Auto) 2.6 (0.0-4.0) % Baso % (Auto) 0.9 (0.0-2.0) % Neut # (Auto) 7.7 (1.8-7.7) th/mm3 Lymph # (Auto) 0.9 L (1.0-4.8) th/mm3 [place] # (Auto) 0.9 (0.0-0.9) th/mm3 Eos # (Auto) 0.3 (0.0-0.4) th/mm3 Baso # (Auto) 0.1 (0.0-0.2) th/mm3 WBC Differential . Differential Comment Auto diff final Sodium 134 L (136-145) meq/L Potassium 5.6 H (3.5-5.1) meq/L Chloride 99 (98-107) meq/L Carbon Dioxide 17.2 L (21.0-32.0) meq/L Anion Gap 18 H (5-15) meq/L BUN 73 H (7-18) mg/dL Creatinine 10.69 H* (0.50-1.00) mg/dL Estimated GFR 4 L (>89) mL/min POC Glucose 171 H (68-110) mg/dl Random Glucose 215 H (74-106) mg/dL Calcium 9.3 (8.5-10.1) mg/dL Phosphorus (2.5-4.9) mg/dL Total Bilirubin 0.4 (0.2-1.0) mg/dL AST 10 L (15-37) U/L ALT 14 (10-53) U/L Alkaline Phosphatase 182 H (45-117) U/L Total Protein 8.9 H (6.4-8.2) g/dL Albumin 3.4 (3.4-5.0) g/dL Hepatitis A IgM Ab (Nonreactive) Hep Bs Antigen (Nonreactive) Hep B Core IgM Ab (Nonreactive) Hep C IgG Ab (Nonreactive) 02/24/18 02/24/18 02/24/18 Range/Units 09:10 09:10 11:31 WBC 7.8 (4.0-11.0) th/mm3 RBC 3.67 L (4.00-5.30) mil/mm3 Hgb 11.1 L (11.6-15.3) gm/dL Hct 34.1 L (35.0-46.0) % MCV 93.0 (80.0-100.0) fL MCH 30.2 (27.0-34.0) pg MCHC 32.5 (32.0-36.0) % RDW 16.5 (11.6-17.2) % Plt Count 275 (150-450) th/mm3 MPV 7.7 (7.0-11.0) fL Neut % (Auto) 71.7 H (16.0-70.0) % Lymph % (Auto) 10.5 (9.0-44.0) % [place] % (Auto) 14.2 H (0.0-8.0) % Eos % (Auto) 2.6 (0.0-4.0) % Baso % (Auto) 1.0 (0.0-2.0) % Neut # (Auto) 5.6 (1.8-7.7) th/mm3 Lymph # (Auto) 0.8 L (1.0-4.8) th/mm3 [place] # (Auto) 1.1 H (0.0-0.9) th/mm3 Eos # (Auto) 0.2 (0.0-0.4) th/mm3 Baso # (Auto) 0.1 (0.0-0.2) th/mm3 WBC Differential . Differential Comment Auto diff final Sodium 132 L (136-145) meq/L Potassium 6.9 H* D (3.5-5.1) meq/L Chloride 100 (98-107) meq/L Carbon Dioxide 15.1 L (21.0-32.0) meq/L Anion Gap 17 H (5-15) meq/L BUN 81 H (7-18) mg/dL Creatinine 11.32 H* (0.50-1.00) mg/dL Estimated GFR 4 L (>89) mL/min POC Glucose 160 H (68-110) mg/dl Random Glucose 140 H (74-106) mg/dL Calcium 9.0 (8.5-10.1) mg/dL Phosphorus (2.5-4.9) mg/dL Total Bilirubin 0.4 (0.2-1.0) mg/dL AST 9 L (15-37) U/L ALT 15 (10-53) U/L Alkaline Phosphatase 168 H (45-117) U/L Total Protein 8.2 D (6.4-8.2) g/dL Albumin 3.0 L (3.4-5.0) g/dL Hepatitis A IgM Ab (Nonreactive) Hep Bs Antigen (Nonreactive) Hep B Core IgM Ab (Nonreactive) Hep C IgG Ab (Nonreactive) 02/24/18 02/24/18 02/24/18 Range/Units 16:58 17:23 21:18 WBC (4.0-11.0) th/mm3 RBC (4.00-5.30) mil/mm3 Hgb (11.6-15.3) gm/dL Hct (35.0-46.0) % MCV (80.0-100.0) fL MCH (27.0-34.0) pg MCHC (32.0-36.0) % RDW (11.6-17.2) % Plt Count (150-450) th/mm3 MPV (7.0-11.0) fL Neut % (Auto) (16.0-70.0) % Lymph % (Auto) (9.0-44.0) % [place] % (Auto) (0.0-8.0) % Eos % (Auto) (0.0-4.0) % Baso % (Auto) (0.0-2.0) % Neut # (Auto) (1.8-7.7) th/mm3 Lymph # (Auto) (1.0-4.8) th/mm3 [place] # (Auto) (0.0-0.9) th/mm3 Eos # (Auto) (0.0-0.4) th/mm3 Baso # (Auto) (0.0-0.2) th/mm3 WBC Differential Differential Comment Sodium (136-145) meq/L Potassium (3.5-5.1) meq/L Chloride (98-107) meq/L Carbon Dioxide (21.0-32.0) meq/L Anion Gap (5-15) meq/L BUN (7-18) mg/dL Creatinine (0.50-1.00) mg/dL Estimated GFR (>89) mL/min POC Glucose 90 117 H (68-110) mg/dl Random Glucose (74-106) mg/dL Calcium (8.5-10.1) mg/dL Phosphorus (2.5-4.9) mg/dL Total Bilirubin (0.2-1.0) mg/dL AST (15-37) U/L ALT (10-53) U/L Alkaline Phosphatase (45-117) U/L Total Protein (6.4-8.2) g/dL Albumin (3.4-5.0) g/dL Hepatitis A IgM Ab Nonreactive (Nonreactive) Hep Bs Antigen Nonreactive (Nonreactive) Hep B Core IgM Ab Nonreactive (Nonreactive) Hep C IgG Ab Reactive H (Nonreactive) 02/25/18 02/25/18 02/25/18 Range/Units 08:21 10:23 10:23 WBC 6.8 (4.0-11.0) th/mm3 RBC 3.77 L (4.00-5.30) mil/mm3 Hgb 11.1 L (11.6-15.3) gm/dL Hct 34.3 L (35.0-46.0) % MCV 91.0 (80.0-100.0) fL MCH 29.5 (27.0-34.0) pg MCHC 32.5 (32.0-36.0) % RDW 16.9 (11.6-17.2) % Plt Count 272 (150-450) th/mm3 MPV 7.6 (7.0-11.0) fL Neut % (Auto) 72.5 H (16.0-70.0) % Lymph % (Auto) 12.0 (9.0-44.0) % [place] % (Auto) 12.4 H (0.0-8.0) % Eos % (Auto) 2.4 (0.0-4.0) % Baso % (Auto) 0.7 (0.0-2.0) % Neut # (Auto) 4.9 (1.8-7.7) th/mm3 Lymph # (Auto) 0.8 L (1.0-4.8) th/mm3 [place] # (Auto) 0.8 (0.0-0.9) th/mm3 Eos # (Auto) 0.2 (0.0-0.4) th/mm3 Baso # (Auto) 0.0 (0.0-0.2) th/mm3 WBC Differential . Differential Comment Auto diff final Sodium 135 L (136-145) meq/L Potassium 4.9 D (3.5-5.1) meq/L Chloride 97 L (98-107) meq/L Carbon Dioxide 25.2 D (21.0-32.0) meq/L Anion Gap 13 (5-15) meq/L BUN 50 H (7-18) mg/dL Creatinine 8.47 H (0.50-1.00) mg/dL Estimated GFR 5 L (>89) mL/min POC Glucose 90 (68-110) mg/dl Random Glucose 81 (74-106) mg/dL Calcium 9.2 (8.5-10.1) mg/dL Phosphorus 8.5 H (2.5-4.9) mg/dL Total Bilirubin (0.2-1.0) mg/dL AST (15-37) U/L ALT (10-53) U/L Alkaline Phosphatase (45-117) U/L Total Protein (6.4-8.2) g/dL Albumin (3.4-5.0) g/dL Hepatitis A IgM Ab (Nonreactive) Hep Bs Antigen (Nonreactive) Hep B Core IgM Ab (Nonreactive) Hep C IgG Ab (Nonreactive) 02/25/18 02/25/18 02/25/18 Range/Units 10:23 13:26 18:40 WBC (4.0-11.0) th/mm3 RBC (4.00-5.30) mil/mm3 Hgb (11.6-15.3) gm/dL Hct (35.0-46.0) % MCV (80.0-100.0) fL MCH (27.0-34.0) pg MCHC (32.0-36.0) % RDW (11.6-17.2) % Plt Count (150-450) th/mm3 MPV (7.0-11.0) fL Neut % (Auto) (16.0-70.0) % Lymph % (Auto) (9.0-44.0) % [place] % (Auto) (0.0-8.0) % Eos % (Auto) (0.0-4.0) % Baso % (Auto) (0.0-2.0) % Neut # (Auto) (1.8-7.7) th/mm3 Lymph # (Auto) (1.0-4.8) th/mm3 [place] # (Auto) (0.0-0.9) th/mm3 Eos # (Auto) (0.0-0.4) th/mm3 Baso # (Auto) (0.0-0.2) th/mm3 WBC Differential Differential Comment Sodium (136-145) meq/L Potassium (3.5-5.1) meq/L Chloride (98-107) meq/L Carbon Dioxide (21.0-32.0) meq/L Anion Gap (5-15) meq/L BUN (7-18) mg/dL Creatinine (0.50-1.00) mg/dL Estimated GFR (>89) mL/min POC Glucose 115 H 98 (68-110) mg/dl Random Glucose (74-106) mg/dL Calcium (8.5-10.1) mg/dL Phosphorus Cancelled (2.5-4.9) mg/dL Total Bilirubin (0.2-1.0) mg/dL AST (15-37) U/L ALT (10-53) U/L Alkaline Phosphatase (45-117) U/L Total Protein (6.4-8.2) g/dL Albumin (3.4-5.0) g/dL Hepatitis A IgM Ab (Nonreactive) Hep Bs Antigen (Nonreactive) Hep B Core IgM Ab (Nonreactive) Hep C IgG Ab (Nonreactive) 02/26/18 02/26/18 02/26/18 Range/Units 06:06 06:06 08:03 WBC 5.1 (4.0-11.0) th/mm3 RBC 4.05 (4.00-5.30) mil/mm3 Hgb 12.1 (11.6-15.3) gm/dL Hct 36.5 (35.0-46.0) % MCV 90.3 (80.0-100.0) fL MCH 29.9 (27.0-34.0) pg MCHC 33.1 (32.0-36.0) % RDW 16.1 (11.6-17.2) % Plt Count 288 (150-450) th/mm3 MPV 7.4 (7.0-11.0) fL Neut % (Auto) 63.2 (16.0-70.0) % Lymph % (Auto) 17.5 (9.0-44.0) % [place] % (Auto) 14.1 H (0.0-8.0) % Eos % (Auto) 3.8 (0.0-4.0) % Baso % (Auto) 1.4 (0.0-2.0) % Neut # (Auto) 3.2 (1.8-7.7) th/mm3 Lymph # (Auto) 0.9 L (1.0-4.8) th/mm3 [place] # (Auto) 0.7 (0.0-0.9) th/mm3 Eos # (Auto) 0.2 (0.0-0.4) th/mm3 Baso # (Auto) 0.1 (0.0-0.2) th/mm3 WBC Differential . Differential Comment Auto diff final Sodium 134 L (136-145) meq/L Potassium 4.8 (3.5-5.1) meq/L Chloride 89 L D (98-107) meq/L Carbon Dioxide 28.8 (21.0-32.0) meq/L Anion Gap 16 H (5-15) meq/L BUN 59 H (7-18) mg/dL Creatinine 10.01 H* D (0.50-1.00) mg/dL Estimated GFR 4 L (>89) mL/min POC Glucose 130 H (68-110) mg/dl Random Glucose 73 L (74-106) mg/dL Calcium 9.9 (8.5-10.1) mg/dL Phosphorus (2.5-4.9) mg/dL Total Bilirubin 0.4 (0.2-1.0) mg/dL AST 8 L (15-37) U/L ALT 16 (10-53) U/L Alkaline Phosphatase 174 H (45-117) U/L Total Protein 8.8 H D (6.4-8.2) g/dL Albumin 3.3 L (3.4-5.0) g/dL Hepatitis A IgM Ab (Nonreactive) Hep Bs Antigen (Nonreactive) Hep B Core IgM Ab (Nonreactive) Hep C IgG Ab (Nonreactive) 02/26/18 02/26/18 02/26/18 Range/Units 11:38 17:28 20:20 WBC (4.0-11.0) th/mm3 RBC (4.00-5.30) mil/mm3 Hgb (11.6-15.3) gm/dL Hct (35.0-46.0) % MCV (80.0-100.0) fL MCH (27.0-34.0) pg MCHC (32.0-36.0) % RDW (11.6-17.2) % Plt Count (150-450) th/mm3 MPV (7.0-11.0) fL Neut % (Auto) (16.0-70.0) % Lymph % (Auto) (9.0-44.0) % [place] % (Auto) (0.0-8.0) % Eos % (Auto) (0.0-4.0) % Baso % (Auto) (0.0-2.0) % Neut # (Auto) (1.8-7.7) th/mm3 Lymph # (Auto) (1.0-4.8) th/mm3 [place] # (Auto) (0.0-0.9) th/mm3 Eos # (Auto) (0.0-0.4) th/mm3 Baso # (Auto) (0.0-0.2) th/mm3 WBC Differential Differential Comment Sodium (136-145) meq/L Potassium (3.5-5.1) meq/L Chloride (98-107) meq/L Carbon Dioxide (21.0-32.0) meq/L Anion Gap (5-15) meq/L BUN (7-18) mg/dL Creatinine (0.50-1.00) mg/dL Estimated GFR (>89) mL/min POC Glucose 90 128 H 129 H (68-110) mg/dl Random Glucose (74-106) mg/dL Calcium (8.5-10.1) mg/dL Phosphorus (2.5-4.9) mg/dL Total Bilirubin (0.2-1.0) mg/dL AST (15-37) U/L ALT (10-53) U/L Alkaline Phosphatase (45-117) U/L Total Protein (6.4-8.2) g/dL Albumin (3.4-5.0) g/dL Hepatitis A IgM Ab (Nonreactive) Hep Bs Antigen (Nonreactive) Hep B Core IgM Ab (Nonreactive) Hep C IgG Ab (Nonreactive) 02/27/18 02/27/18 Range/Units 08:35 12:31 WBC (4.0-11.0) th/mm3 RBC (4.00-5.30) mil/mm3 Hgb (11.6-15.3) gm/dL Hct (35.0-46.0) % MCV (80.0-100.0) fL MCH (27.0-34.0) pg MCHC (32.0-36.0) % RDW (11.6-17.2) % Plt Count (150-450) th/mm3 MPV (7.0-11.0) fL Neut % (Auto) (16.0-70.0) % Lymph % (Auto) (9.0-44.0) % [place] % (Auto) (0.0-8.0) % Eos % (Auto) (0.0-4.0) % Baso % (Auto) (0.0-2.0) % Neut # (Auto) (1.8-7.7) th/mm3 Lymph # (Auto) (1.0-4.8) th/mm3 [place] # (Auto) (0.0-0.9) th/mm3 Eos # (Auto) (0.0-0.4) th/mm3 Baso # (Auto) (0.0-0.2) th/mm3 WBC Differential Differential Comment Sodium (136-145) meq/L Potassium (3.5-5.1) meq/L Chloride (98-107) meq/L Carbon Dioxide (21.0-32.0) meq/L Anion Gap (5-15) meq/L BUN (7-18) mg/dL Creatinine (0.50-1.00) mg/dL Estimated GFR (>89) mL/min POC Glucose 89 106 (68-110) mg/dl Random Glucose (74-106) mg/dL Calcium (8.5-10.1) mg/dL Phosphorus (2.5-4.9) mg/dL Total Bilirubin (0.2-1.0) mg/dL AST (15-37) U/L ALT (10-53) U/L Alkaline Phosphatase (45-117) U/L Total Protein (6.4-8.2) g/dL Albumin (3.4-5.0) g/dL Hepatitis A IgM Ab (Nonreactive) Hep Bs Antigen (Nonreactive) Hep B Core IgM Ab (Nonreactive) Hep C IgG Ab (Nonreactive) Imaging Data Radiologist's impression: Soft Tissue Neck CT 02/23/18 19:26 CONCLUSION: 1. Prominent area of induration with areas of low density mass seen in the anterior inferior right face at the level the mandible consistent with infection /inflammatory change. A well-formed abscess is not seen at this point. There is associated adenopathy. 2. Small separate focal area of skin thickening or skin lesion at the more posterior superior right side of the face adjacent to the parotid gland. Discharge Plan Discharge Disposition Patient Disposition: 30 Still Patient Physicians Team ED Provider: Dayton Lassiter Primary Care Provider: Shannan Garcia Attending Provider: Rachna Bowling Other Providers: Nelson Gaston ; Micaela Pickens ; [facility], Insurance Discharge Interventions Interventions: ED Discharge Assessment Last Done: 02/25/18 07:06 Vital Signs Last Done: 02/23/18 21:56 Status ED Status: Left Department Discharge Information Discharge Date/Time: 02/23/18 22:00
[2018-02-23] MEDS: Morphine Inj 4 MG/ML Vial IV.PUSH PRN (23:12)
[2018-02-24] MEDS: Clindamycin 600 mg/NS Premix 600 MG/50 ML PIGGYBACK IV.SIG SCH ×2 (04:41→16:14)
[2018-02-24] MEDS: Morphine Inj 4 MG/ML Vial IV.PUSH PRN ×4 (06:53→22:23)
[2018-02-24] MEDS: Heparin - SQ 10,000 UNITS/ML Vial SQ SCH ×2 (09:37→21:19)
[2018-02-24] MEDS: Insulin NovoLOG Aspart Correctional Sugar Inj SQ SCH ×4 (09:37→21:20)
[2018-02-24] MEDS: Senna/Docusate Sodium 8.6/50 MG Tablet PO SCH ×2 (09:38→21:20)
[2018-02-24 10:00] LABS: Baso # (Auto) 0.1 th/mm3 (0.0-0.2); Eos # (Auto) 0.2 th/mm3 (0.0-0.4); Eos % (Auto) 2.6 % (0.0-4.0); Hematocrit 34.1 % (35.0-46.0); Hemoglobin 11.1 gm/dL (11.6-15.3); Lymph # (Auto) 0.8 th/mm3 (1.0-4.8); Lymph % (Auto) 10.5 % (9.0-44.0); Mean Corpuscular HGB Conc 32.5 % (32.0-36.0); Mean Corpuscular Hemoglobin 30.2 pg (27.0-34.0); Mean Platelet Volume 7.7 fL (7.0-11.0); Mono # (Auto) 1.1 th/mm3 (0.0-0.9); Mono % (Auto) 14.2 % (0.0-8.0); Neut # (Auto) 5.6 th/mm3 (1.8-7.7); Neut % (Auto) 71.7 % (16.0-70.0); Platelet Count 275 th/mm3 (150-450); Red Blood Count 3.67 mil/mm3 (4.00-5.30); Red Cell Distribution Width 16.5 % (11.6-17.2); White Blood Count 7.8 th/mm3 (4.0-11.0)
[2018-02-24 10:21] LABS: Alanine Aminotransferase 15 U/L (10-53); Anion Gap 17 meq/L (5-15); Aspartate Aminotransferase 9 U/L (15-37); Blood Urea Nitrogen 81 mg/dL (7-18); Carbon Dioxide 15.1 meq/L (21.0-32.0); Chloride 100 meq/L (98-107); Glomerular Filtration Rate 4 mL/min (>89); Glucose,Random 140 mg/dL (74-106); Sodium 132 meq/L (136-145)
[2018-02-24 10:27] LABS: Potassium 6.9 meq/L (3.5-5.1)
[2018-02-24] MEDS ORDERED: Sod Chloride 0.9% Inj 1,000 ML OTHER PRN ×2 (10:27)
[2018-02-24] MEDS ORDERED: Gelatin 12 MM/7 MM Topical Foam TOPICAL PRN (10:27)
[2018-02-24] MEDS ORDERED: Sod Chloride 0.9% Inj 1,000 ML IV.CONT PRN (10:27)
[2018-02-24] MEDS ORDERED: Albumin Human 25% Inj 100 ML IV.SIG PRN (10:27)
[2018-02-24] MEDS ORDERED: Heparin 10,000 UNITS/10 ML Vial (for IV use) IV.FLUSH PRN (10:27)
[2018-02-24] MEDS ORDERED: Acetaminophen 325 MG Tablet PO PRN (10:27)
[2018-02-24] MEDS ORDERED: Heparin 10,000 UNITS/10 ML Vial (for IV use) OTHER PRN (10:27)
--- NOTE | 2018-02-24 10:30 | P.CONNP ---
<ZaidaRaquel - Last Filed: 02/24/18 10:35> History of Present Illness Service: Nephrology Consult date: 02/23/18 Requesting Physician: Clara Crowell Reason for Consult: End Stage Renal disease on hemodialysis Primary Care Provider: Shannan Garcia MD History of Present Illness: Patient is a 47-year-old female with a PMH of HTN, DM and ESRD on HD M/W/F. Presented to the ER w/ complaints of right-sided facial swelling and pain which has been going on for about 1 week. She has past medical history of calciphylaxis. Nephrology is consulted for end stage renal disease on hemodialysis. 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 Review of Systems Constitutional: Reports fatigue Ears, Nose, Mouth, and Throat: Reports facial pain, Reports mouth pain Cardiovascular: Denies chest pain Respiratory: Denies cough, Denies shortness of breath Gastrointestinal: Reports nausea, Denies abdominal pain, Denies vomiting Psychiatric: Reports anxiety PMFSH - History History Provided By: Patient - Medical History Medical History: Medical History (Last Updated 02/23/18 @ 18:42 by Fred Fontana) Dialysis patient Fistula History of Clostridium difficile infection History of MRSA infection Hypertension Infarction of spleen Renal failure - Surgical History Surgical History: Surgical History (Last Updated 02/23/18 @ 18:42 by Fred Fontana) Amputated below knee History of eye surgery Hx of cholecystectomy - Tobacco History Second Hand Smoke Exposure: Yes Tobacco Use In Past 30 Days: Yes Smoking Status: Current every day smoker Tobacco Type: Cigarettes - Alcohol History How Often Do You Have a Drink Containing Alcohol: Never - Substance Use History Substance History: Active Abuse - Substance Use Type Marijuana Status: Active Route Used: Inhalation Frequency: 3-4 TIMES DAILY Reason for Use: Calm Down, Feels Good Comment: SELF MEDICATES FOR PAIN AND ANXIETY - Travel History Recent Travel in the [place] Within the Last 8 Weeks: No Recent Travel Out of the Country Within the Last 8 Weeks: No - Immunization History Tetanus Immunization: Unsure Hx Influenza Vaccine This Season: Yes Medications and Allergies Allergies Allergy/AdvReac Type Severity Reaction Status Date / Time codeine Allergy Severe HYPERACTIVITY Verified 02/23/18 18:50 &ITCH iodine Allergy Severe Atrial Verified 02/23/18 18:50 Fibrillation potassium iodide Allergy Severe TOPICAL/ITC Verified 02/23/18 18:50 H povidone-iodine Allergy Severe TOPICAL/ITC Verified 02/23/18 18:50 H sodium iodide Allergy Severe TOPICAL/ITC Verified 02/23/18 18:50 H sodium iodide Allergy Severe TOPICAL/ITC Verified 02/23/18 18:50 H iohexol Allergy Intermediate HIVES Verified 02/23/18 18:50 penicillin G Allergy Unknown Anaphylaxis Verified 02/23/18 18:50 Pork/Porcine Containing Allergy Unknown Anaphylaxis Verified 02/23/18 18:50 Products Home Medications Medication Instructions Recorded Confirmed Type Unable to Obtain Home Meds 02/23/18 02/23/18 History Active Medications: Active Medications Acetaminophen (Tylenol) 650 mg PO Q4H PRN PRN Reason: Temp > 100.4 Al Hydroxide/Mg Hydroxide (Milk Of Magnesia Liq) 30 ml PO Q12H PRN PRN Reason: Mild Constipation Bisacodyl (Dulcolax Supp) 10 mg RECTAL DAILY PRN PRN Reason: SEVERE CONSITIPATION Dextrose (D50w Vial) 50 ml IV.PUSH UNSCH PRN PRN Reason: PER HYPOGLYCEMIA PROTOCOL Glucagon (Glucagon Inj) 1 mg OTHER PRN PRN PRN Reason: for Hypoglycemia Protocol Heparin Sodium (Porcine) (Heparin Inj) 5,000 units SQ Q12H [facility] Last Admin: 02/24/18 09:37 Dose: 5,000 units Clindamycin/Sodium Chloride (Cleocin 600 Mg/Ns Premix) 600 mg in 50 mls @ 100 mls/hr IV.SIG Q8H [facility] Stop: 02/24/18 12:44 Last Infusion: 02/24/18 07:33 Dose: Infused Insulin Aspart (Novolog Insulin Suppl Scale Inj) 0 unit SQ ACHS [facility]; Protocol Last Admin: 02/24/18 09:37 Dose: 9 unit Lactulose (Lactulose Liq) 30 ml PO DAILY PRN PRN Reason: SEVERE CONSITIPATION Metoclopramide HCl (Reglan Inj) 5 mg IV.PUSH Q6HR PRN; Protocol PRN Reason: NAUSEA OR VOMITING Morphine Sulfate (Morphine Inj) 2 mg IV.PUSH Q4H PRN PRN Reason: PAIN 6-10 Last Admin: 02/24/18 06:53 Dose: 2 mg Senna/Docusate Sodium (Areli-Colace) 1 tab PO BID [facility] Last Admin: 02/24/18 09:38 Dose: 1 tab Sennosides (Senokot) 17.2 mg PO Q12H PRN PRN Reason: Moderate Constipation Temazepam (Restoril) 15 mg PO HS PRN PRN Reason: INSOMNIA Exam Vital signs: Vital Signs 02/23/18 18:06 02/23/18 18:38 02/23/18 19:16 Temperature 99.2 F Pulse Rate 85 84 Respiratory Rate 18 20 Blood Pressure 179/77 H 192/77 H 172/91 H Pulse Oximetry 91 L 92 L 02/23/18 21:56 02/23/18 23:37 02/23/18 23:39 Temperature Pulse Rate 78 81 Respiratory Rate 18 16 Blood Pressure 181/79 H Pulse Oximetry 96 97 02/24/18 00:00 02/24/18 04:00 02/24/18 07:33 Temperature 98.1 F 98.0 F Pulse Rate 73 70 Respiratory Rate 18 16 16 Blood Pressure 192/84 H 163/70 H Pulse Oximetry 93 L 94 L 02/24/18 08:00 Temperature 97.7 F Pulse Rate 66 Respiratory Rate 16 Blood Pressure 144/67 H Pulse Oximetry 95 Intake & Output 02/23/18 02/24/18 02/24/18 18:59 06:59 18:59 Intake Total 50 / 50 50 / 50 Balance 50 / 50 50 / 50 Weight 95 kg Intake: IV 50 / 50 50 / 50 Cleocin 600 mg/NS Premix 600 mg 50 / 50 50 / 50 In 50 ml @ 100 mls/hr IV.SIG Q8H [facility] Rx#:[id number] - Constitutional no acute distress - Routine HEENT Exam Head: Present: normocephalic ENT: Present: mucous membranes moist Comments: Right facial swelling/erythema, mandibular lesion w/ drainage, tenderness to palpation. - Routine Neck Exam Present: supple. Absent: JVD - Routine Respiratory Exam Present: decreased breath sounds. Absent: rhonchi, wheezes - Routine Cardiovascular Exam Present: RRR. Absent: murmur - Routine Abdominal Exam Present: soft, normoactive bowel sounds. Absent: tenderness Comments: large - Routine Extremities Exam Absent: edema - Routine Skin Exam Present: dry, warm - Routine Neurological Exam Present: alert, oriented X3 Results - Lab Results 02/24/18 09:10 02/24/18 09:10 Most recent lab results Calcium 9.0 mg/dL (8.5-10.1) 02/24/18 09:10 Assessment and Plan - Assessment (1) ESRD (end stage renal disease) on dialysis Code(s): N18.6 - End stage renal disease; Z99.2 - Dependence on renal dialysis Status: Acute Plan: End stage renal disease on hemodialysis Saturday/Saturday/Saturday patient of Dr. Arias Last hemodialysis on Saturday. Avoid IVF administration Will order Renvela and PhosLo which she takes at home Hyperkalemia with potassium level 6.9 will give calcium gluconate, D50, 10 units of insulin. Hemodialysis today will remove fluid as tolerated (2) Facial cellulitis Code(s): L03.211 - Cellulitis of face Status: Acute Plan: Continue antibiotics. CT of neck done Plastics consulted (3) DM (diabetes mellitus) Code(s): E11.9 - Type 2 diabetes mellitus without complications Status: Acute Plan: Maintain blood sugars between 140 mg/dl to 180 mg/dl <Jerry Gaston Q - Last Filed: 02/25/18 13:28> History of Present Illness Primary Care Provider: Shannan Garcia MD [facility] - Medical History Medical History: Medical History (Last Updated 02/23/18 @ 18:42 by Fred Fontana) Dialysis patient Fistula History of Clostridium difficile infection History of MRSA infection Hypertension Infarction of spleen Renal failure - Surgical History Surgical History: Surgical History (Last Updated 02/23/18 @ 18:42 by Fred Fontana) Amputated below knee History of eye surgery Hx of cholecystectomy Medications and Allergies Active Medications: Active Medications Acetaminophen (Tylenol) 650 mg PO Q4H PRN PRN Reason: Temp > 100.4 Last Admin: 02/24/18 21:20 Dose: 650 mg Acetaminophen (Tylenol) 650 mg PO UNSCH PRN PRN Reason: SEE LABEL COMMENTS Al Hydroxide/Mg Hydroxide (Milk Of Wilbur Liq) 30 ml PO Q12H PRN PRN Reason: Mild Constipation Bisacodyl (Dulcolax Supp) 10 mg RECTAL DAILY PRN PRN Reason: SEVERE CONSITIPATION Calcium Acetate (Phoslo) 1,334 mg PO TID DENIS Last Admin: 02/25/18 08:40 Dose: 1,334 mg Clonidine HCl (Catapres) 0.1 mg PO UNSCH PRN PRN Reason: SEE LABEL COMMENTS Clonidine HCl (Catapres) 0.1 mg PO Q6H PRN PRN Reason: SBP> OR = 180, DBP> OR = 100 Dextrose (D50w Vial) 50 ml IV.PUSH UNSCH PRN PRN Reason: PER HYPOGLYCEMIA PROTOCOL Diphenhydramine HCl (Benadryl) 25 mg PO UNSCH PRN PRN Reason: SEE LABEL COMMENTS Epoetin Duncan (Epogen Inj) 4,000 unit IV.PUSH UNSCH PRN PRN Reason: SEE LABEL COMMENTS Last Admin: 02/24/18 13:51 Dose: 4,000 unit Gelatin (Gelfoam 12 Mm/7 Mm Topical) 1 foam TOPICAL UNSCH PRN PRN Reason: help stop bleeding from site Gentamicin Sulfate (Gentamicin Inj) 20 mg OTHER WITH DIALYSIS PRN PRN Reason: Dwell Gentamycin Lock Glucagon (Glucagon Inj) 1 mg OTHER PRN PRN PRN Reason: for Hypoglycemia Protocol Heparin Sodium (Porcine) (Heparin Inj) 5,000 units SQ Q12H [facility] Last Admin: 02/25/18 08:41 Dose: 5,000 units Heparin Sodium (Porcine) (Heparin Inj) 8,000 units IV.FLUSH WITH DIALYSIS PRN PRN Reason: for machine prime Heparin Sodium (Porcine) (Heparin Inj) 0 units OTHER WITH DIALYSIS PRN PRN Reason: Dwell Heparin to Fill Catheter Albumin Human (Flexbumin 25% Inj) 100 mls @ 60 mls/hr IV.SIG WITH DIALYSIS PRN PRN Reason: hypotension / volume replace Sodium Chloride (Ns Inj) 1,000 mls @ 0 mls/hr OTHER .Q0M PRN PRN Reason: for prime and rinse back Sodium Chloride (Ns Inj) 1,000 mls @ 200 mls/hr OTHER .Q5H PRN PRN Reason: for dialyzer flush PRN Sodium Chloride (Ns Inj) 1,000 mls @ 0 mls/hr IV.CONT .Q0M PRN PRN Reason: hypotension / volume replace Clindamycin/Sodium Chloride (Cleocin 600 Mg/Ns Premix) 600 mg in 50 mls @ 100 mls/hr IV.SIG Q8H [facility] Last Admin: 02/25/18 12:31 Dose: 100 mls/hr Insulin Aspart (Novolog Insulin Suppl Scale Inj) 0 unit SQ ACHS [facility]; Protocol Last Admin: 02/25/18 08:22 Dose: Not Given Lactulose (Lactulose Liq) 30 ml PO DAILY PRN PRN Reason: SEVERE CONSITIPATION Mannitol (Mannitol Inj) 12.5 gm IV.PUSH UNSCH PRN PRN Reason: hypotension / volume replace Metoclopramide HCl (Reglan Inj) 5 mg IV.PUSH Q6HR PRN; Protocol PRN Reason: NAUSEA OR VOMITING Morphine Sulfate (Morphine Inj) 2 mg IV.PUSH Q4H PRN PRN Reason: PAIN 6-10 Last Admin: 02/25/18 08:41 Dose: 2 mg Neomycin/Polymyxin/Bacitracin (Neosporin Oint) 1 applicatio TOPICAL DAILY [facility] Last Admin: 02/25/18 12:32 Dose: 1 applicatio Nitroglycerin (Nitrostat Sl) 0.4 mg SL Q5M PRN PRN Reason: CHEST PAIN Ondansetron HCl (Zofran Odt) 4 mg PO UNSCH PRN PRN Reason: WITH DIALYSIS Last Admin: 02/25/18 12:38 Dose: 4 mg Senna/Docusate Sodium (Areli-Colace) 1 tab PO BID [facility] Last Admin: 02/25/18 08:40 Dose: 1 tab Sennosides (Senokot) 17.2 mg PO Q12H PRN PRN Reason: Moderate Constipation Sevelamer Carbonate (Renvela) 2,400 mg PO TIDAC [facility] Last Admin: 02/25/18 08:41 Dose: 2,400 mg Sodium Chloride (Ns Flush) 5 ml IV.FLUSH UNSCH PRN PRN Reason: flush each lumen during HD Temazepam (Restoril) 15 mg PO HS PRN PRN Reason: INSOMNIA Exam Vital signs: Vital Signs 02/24/18 16:00 02/24/18 18:28 02/24/18 18:40 Temperature 97.5 F L Pulse Rate 97 H Respiratory Rate 22 18 Blood Pressure 210/89 H 193/87 H Pulse Oximetry 97 02/24/18 20:00 02/24/18 22:20 02/24/18 23:42 Temperature 100.6 F H 99.3 F 100.0 F H Pulse Rate 100 H 82 Respiratory Rate 18 16 Blood Pressure 150/66 H 148/65 H Pulse Oximetry 97 92 L 02/25/18 01:10 02/25/18 04:00 02/25/18 07:58 Temperature 97.8 F Pulse Rate 81 79 68 Respiratory Rate 16 Blood Pressure 133/64 Pulse Oximetry 90 L 02/25/18 08:00 02/25/18 12:00 Temperature 98.3 F 98.7 F Pulse Rate 71 73 Respiratory Rate 16 18 Blood Pressure 152/72 H 147/66 H Pulse Oximetry 98 95 Intake & Output 02/24/18 02/25/18 02/25/18 18:59 06:59 18:59 Intake Total 100 / 100 Output Total 3000 / 3000 Balance -2900 / -2900 Intake: IV 100 / 100 Cleocin 600 mg/NS Premix 600 mg 100 / 100 In 50 ml @ 100 mls/hr IV.SIG Q8H [facility] Rx#:[id number] Output: Hemodialysis Amount 3000 / 3000 Other: # Voids 0 # Bowel Movements 0 Results - Lab Results 02/25/18 10:23 02/25/18 10:23 Most recent lab results Calcium 9.2 mg/dL (8.5-10.1) 02/25/18 10:23 Phosphorus 8.5 mg/dL (2.5-4.9) H 02/25/18 10:23 Assessment and Plan - Assessment (1) ESRD (end stage renal disease) on dialysis Code(s): N18.6 - End stage renal disease; Z99.2 - Dependence on renal dialysis Status: Acute (2) Facial cellulitis Code(s): L03.211 - Cellulitis of face Status: Acute (3) DM (diabetes mellitus) Code(s): E11.9 - Type 2 diabetes mellitus without complications Status: Acute - Plan Patient seen and examined, agree with above. Patient seen during HD, continue antibiotics. Remove fluid as tolerated.
[2018-02-24 10:36] LABS: Alkaline Phosphatase 168 U/L (45-117); Total Protein 8.2 g/dL (6.4-8.2)
[2018-02-24] MEDS ORDERED: Calcium Gluconate Inj 1 GM in Sodium Chlor 0.9% Inj 100 ML IV.SIG ONE (10:49)
[2018-02-24] MEDS ORDERED: Dextrose 50% in Water 50 ML Vial IV.PUSH ONE (11:15)
--- NOTE | 2018-02-24 12:05 | P.PN ---
Subjective Interval history: Follow up for right facial cellulitis. The patient reports continued right facial pain, swelling, erythema; not much improved overnight. She remained afebrile overnight. Denies any chest pain, shortness of breath, or abdominal complaints. Denies any other medical complaints at this time. Physical Exam Vital signs: Vital Signs 02/23/18 18:06 02/23/18 18:38 02/23/18 19:16 Temperature 99.2 F Pulse Rate 85 84 Respiratory Rate 18 20 Blood Pressure 179/77 H 192/77 H 172/91 H Pulse Oximetry 91 L 92 L 02/23/18 21:56 02/23/18 23:37 02/23/18 23:39 Temperature Pulse Rate 78 81 Respiratory Rate 18 16 Blood Pressure 181/79 H Pulse Oximetry 96 97 02/24/18 00:00 02/24/18 04:00 02/24/18 07:33 Temperature 98.1 F 98.0 F Pulse Rate 73 70 Respiratory Rate 18 16 16 Blood Pressure 192/84 H 163/70 H Pulse Oximetry 93 L 94 L 02/24/18 08:00 Temperature 97.7 F Pulse Rate 66 Respiratory Rate 16 Blood Pressure 144/67 H Pulse Oximetry 95 Intake & Output 02/23/18 02/24/18 02/24/18 18:59 06:59 18:59 Intake Total 50 / 50 50 / 50 Balance 50 / 50 50 / 50 Weight 95 kg Intake: IV 50 / 50 50 / 50 Cleocin 600 mg/NS Premix 600 mg 50 / 50 50 / 50 In 50 ml @ 100 mls/hr IV.SIG Q8H [facility] Rx#:[id number] Narrative: GENERAL: Well-nourished, well-developed middle aged female patient in [facility]. SKIN: Warm and dry. Right mandibular area with diffuse erythema, edema, central lesion that is dry without active drainage, exquisitely tender to palpation. HEENT: Normocephalic. Atraumatic. Pupils equal and round. Mucous membranes pink and moist. NECK: Supple. Trachea midline. Right submandibular and anterior cervical lymphadenopathy, tender to palpation. CARDIOVASCULAR: Regular rate and rhythm. No murmur appreciated. RESPIRATORY: No accessory muscle use. Clear to auscultation. Breath sounds equal bilaterally. GASTROINTESTINAL: Abdomen soft, non-tender, nondistended. Normoactive bowel sounds x4. MUSCULOSKELETAL: RLE BKA. Extremities without clubbing, cyanosis, or edema. NEUROLOGICAL: Awake and alert. No obvious cranial nerve deficits. Motor grossly within normal limits. Moving all extremities spontaneously. Normal speech. PSYCHIATRIC: Appropriate mood and affect; insight and judgment normal. Results - Labs CBC & Chem 7: 02/24/18 09:10 02/24/18 09:10 Laboratory Results - last 24 hr 02/23/18 02/23/18 02/24/18 19:35 19:35 08:26 WBC 9.8 RBC 3.88 L Hgb 11.6 Hct 35.3 MCV 91.1 MCH 29.9 MCHC 32.9 RDW 16.5 Plt Count 323 MPV 7.7 Neut % (Auto) 78.3 H Lymph % (Auto) 9.3 [place] % (Auto) 8.9 H Eos % (Auto) 2.6 Baso % (Auto) 0.9 Neut # (Auto) 7.7 Lymph # (Auto) 0.9 L [place] # (Auto) 0.9 Eos # (Auto) 0.3 Baso # (Auto) 0.1 WBC Differential . Differential Comment Auto diff final Sodium 134 L Potassium 5.6 H Chloride 99 Carbon Dioxide 17.2 L Anion Gap 18 H BUN 73 H Creatinine 10.69 H* Estimated GFR 4 L POC Glucose 171 H Random Glucose 215 H Calcium 9.3 Total Bilirubin 0.4 AST 10 L ALT 14 Alkaline Phosphatase 182 H Total Protein 8.9 H Albumin 3.4 02/24/18 02/24/18 02/24/18 09:10 09:10 11:31 WBC 7.8 RBC 3.67 L Hgb 11.1 L Hct 34.1 L MCV 93.0 MCH 30.2 MCHC 32.5 RDW 16.5 Plt Count 275 MPV 7.7 Neut % (Auto) 71.7 H Lymph % (Auto) 10.5 [place] % (Auto) 14.2 H Eos % (Auto) 2.6 Baso % (Auto) 1.0 Neut # (Auto) 5.6 Lymph # (Auto) 0.8 L [place] # (Auto) 1.1 H Eos # (Auto) 0.2 Baso # (Auto) 0.1 WBC Differential . Differential Comment Auto diff final Sodium 132 L Potassium 6.9 H* D Chloride 100 Carbon Dioxide 15.1 L Anion Gap 17 H BUN 81 H Creatinine 11.32 H* Estimated GFR 4 L POC Glucose 160 H Random Glucose 140 H Calcium 9.0 Total Bilirubin 0.4 AST 9 L ALT 15 Alkaline Phosphatase 168 H Total Protein 8.2 D Albumin 3.0 L Microbiology 02/23/18 19:30 Blood - Peripheral Aerobic Blood Culture - Preliminary No growth in 1 day 02/23/18 19:30 Blood - Peripheral Anaerobic Blood Culture - Preliminary No growth in 1 day 02/23/18 19:35 Blood - Peripheral Aerobic Blood Culture - Preliminary No growth in 1 day 02/23/18 19:35 Blood - Peripheral Anaerobic Blood Culture - Preliminary No growth in 1 day - Imaging Impressions Soft Tissue Neck CT 02/23/18 19:26 CONCLUSION: 1. Prominent area of induration with areas of low density mass seen in the anterior inferior right face at the level the mandible consistent with infection /inflammatory change. A well-formed abscess is not seen at this point. There is associated adenopathy. 2. Small separate focal area of skin thickening or skin lesion at the more posterior superior right side of the face adjacent to the parotid gland. Assessment and Plan - Assessment (1) Facial cellulitis Code(s): L03.211 - Cellulitis of face Status: Acute (2) DM (diabetes mellitus) Code(s): E11.9 - Type 2 diabetes mellitus without complications Status: Acute (3) ESRD (end stage renal disease) on dialysis Code(s): N18.6 - End stage renal disease; Z99.2 - Dependence on renal dialysis Status: Acute - Plan 47-year-old female with a PMH of HTN, DM and ESRD on HD M/W/F who presented to the ER w/ complaints of right-sided facial swelling and pain. Facial Cellulitis/Abscess: swelling/edema to right face x1 wk, attempted to pop wound, now w/ worsening symptoms. -CT Neck w/ prominent induration right mandible, no obvious abscess, images reviewed by me. -Blood cultures with NGTD -Dr. Mondragon w/ ENT consulted by ER physician, recommended consultation w/ Plastic Surgery for possible intervention. -Plastic surgery consulted -Continue IVF, analgesics/antiemetics -Continue on antibiotics with IV Clinda. -Monitor for improvement -1500hrs: Discussed with Dr. Pickens, performed bedside I&D of facial abscess today, sent fluid for culture, recommends nursing to remove packing tomorrow and ok to leave out. Continue on antibiotics. ESRD on HD: M/W/F, follows w/ Dr. Mason -consult nephrology to resume HD as scheduled. Hyperkalemia: acute, K 6.9 today -going for dialysis today -nephrology consulted and following -repeat labs in am DM: Chronic -Sliding scale w/ Accu-Cheks DVT Prophylaxis: Heparin sq Discharge Planning: Discharge pending further clinical improvement. Likely require additional 2-3 days of IV antibiotics.
[2018-02-24] MEDS: Epoetin Alfa Inj 4,000 UNIT/ML Vial IV.PUSH PRN (13:51)
[2018-02-24] MEDS ORDERED: Lidocaine 2%/Epinephrine 1:200,000 PF 10 ML SDV NERV BLOCK ONE (14:38)
[2018-02-24] MEDS ORDERED: Lidocaine 2%/Epinephrine 1:200,000 PF Inj 20 ML Vial NERV BLOCK ONE (15:00)
[2018-02-24] MEDS: Calcium Acetate 667 MG Capsule PO SCH ×2 (16:13→17:52)
--- NOTE | 2018-02-24 16:18 | MB ---
cc: Micaela Pickens MD DATE: 02/24/2018 DATE OF CONSULTATION: 02/24/2018. REFERRING PHYSICIAN: The patient is being seen at the request of Dr. Clara Crowell. REASON FOR CONSULTATION: Infection of the right side of her face. HISTORY OF PRESENT ILLNESS: The patient is a 47-year-old female with a history of hypertension, diabetes mellitus, end-stage renal disease on hemodialysis. The patient presented to the emergency room with complaints of right-sided facial pain and swelling. The symptoms, according to the patient, started 1 week ago. The patient indicated to me that she thinks she may have gotten a bug bite. The patient was admitted and started on IV antibiotics. A CAT scan was obtained which showed no area of definite abscess formation. The white count on admission was 9.8, it was 7.8 this morning and yesterday, there were 78.3% neutrophils, today was 71.7 with a decrease in the absolute neutrophil count from 7.7, down to 5.6. The patient noted that the pain was severe and she did feel a lot of pressure. The CT did note that there was no evidence of intrusion or compression of any of the important structures, although it did not see any evidence of an abscess. Consultation is requested regarding evaluation and treatment of this patient's cellulitis on the right side of her face. PAST MEDICAL HISTORY: Significant for the diabetes mellitus, end-stage renal disease, as noted above. Review of systems is negative except as noted above. The patient also has a history of MRSA infection, history of Clostridium difficile infection, as well as infarction of the spleen in addition to the diagnoses noted above. PAST SURGICAL HISTORY: She had an amputation below the knee. She also has a history of eye surgery and cholecystectomy. SOCIAL HISTORY: Tobacco history. The patient does note that she does use cigarettes and is a current everyday smoker. She does not consume alcohol. MEDICATIONS: Listed on the chart. PHYSICAL EXAMINATION: GENERAL: The patient is lying in bed and she is in pain and discomfort from the swelling on the right side of her face. VITAL SIGNS: Her temperature is 97.7, pulse rate 66, respirations 16, blood pressure 144/67 with a mean of 92. Her pulse oximetry is 95 on oxygen. HEAD AND NECK: Her extraocular muscles are intact. Pupils are equal, round and reactive to light. NEUROLOGIC: The patient is edentulous. There was swelling over the right side of her face centered over the mandible toward the area just lateral to the lip. There is an area of necrosis of the skin, approximately 5 cm lateral to the right lip commissure. It measures 1 x 1 cm in greatest dimension. There does appeared to be an area of pointing approximately 3 cm inferior to this area of necrosis. The area is indurated and it is tender. IMPRESSION: The patient appears to have a significant abscess on the right side of her face. PLAN: Incision and drainage. The patient understands and accepts the risks and complications of the procedure, which will be performed at the bedside. MD MAXX Allen/RENATO , 03:58 PM , 04:16 PM
--- NOTE | 2018-02-24 16:22 | MP ---
cc: Micaela Pickens MD DATE OF OPERATION: 02/24/2018 DATE OF OPERATION: 02/24/2018. PREOPERATIVE DIAGNOSIS: Abscess, right side of face. POSTOPERATIVE DIAGNOSIS: Abscess, right side of face. PROCEDURE PERFORMED: Incision and drainage of deep abscess, right side of the face. ANESTHESIA: Local. SURGEON: Dr. Pickens INDICATIONS FOR PROCEDURE: A 47-year-old female with history of diabetes mellitus, renal failure on dialysis, who has a several-day history of swelling of the right side of her face. The patient came into the emergency room, was admitted for intravenous antibiotics with severe swelling of the right side of her face. FINDINGS: The patient had a deep abscess with a significant amount of thick pus present. The pocket was approximately 3 x 1.5 cm in greatest dimension. At the completion of the procedure, the abscess was drained and the wound packed. OPERATIVE TIME: Approximately 45 minutes. DESCRIPTION OF PROCEDURE: The patient was seen and treated in the emergency room. The area of the swelling and abscess, which measured approximately 12 cm x 8 cm in greatest dimension was prepped with Betadine and initially infiltrated with lidocaine 2% with epinephrine. A field block was undertaken. Attempt was made to anesthetize the mental branch of the submental nerve. A field block was created and, once there was adequate anesthesia, the area was prepped again with Betadine and draped in the usual sterile fashion. A 1.5 x 0.75 cm incision was made with an 11 blade into the abscess. The pus immediately came out. This was cultured. Loculations were broken up with a clamp. Pressure was applied in order to express some of the pus and additionally suction was used to explore the wound and removed the remaining pus. Once all the pus pockets were broken open, the wound was irrigated with saline. It was then also irrigated with straight Betadine, which was then flushed out and the wound was then packed with iodoform packing. The area was then dressed with Telfa and a dry dressing. The patient was given back to the care of the staff, having tolerated the procedure well. MD MAXX Allen/RENATO , 04:01 PM , 04:20 PM
[2018-02-24 18:36] LABS: Hepatitits B Surface Antigen Nonreactive (Nonreactive)
[2018-02-25] MEDS: Morphine Inj 4 MG/ML Vial IV.PUSH PRN ×4 (03:34→21:39)
[2018-02-25] MEDS: Insulin NovoLOG Aspart Correctional Sugar Inj SQ SCH ×4 (08:22→21:40)
[2018-02-25] MEDS: Senna/Docusate Sodium 8.6/50 MG Tablet PO SCH ×2 (08:40→21:41)
[2018-02-25] MEDS: Calcium Acetate 667 MG Capsule PO SCH ×3 (08:40→18:44)
[2018-02-25] MEDS: Heparin - SQ 10,000 UNITS/ML Vial SQ SCH ×2 (08:41→21:40)
--- NOTE | 2018-02-25 09:25 | P.PNNP ---
Subjective Interval history: Reports increased pain in wound area but is much improved since I+D. Hemodialysis yesterday tolerated well. <Raquel Cerda - Last Filed: 02/25/18 09:20> Physical Exam Vital signs: Vital Signs 02/24/18 16:00 02/24/18 18:28 02/24/18 18:40 Temperature 97.5 F L Pulse Rate 97 H Respiratory Rate 22 18 Blood Pressure 210/89 H 193/87 H Pulse Oximetry 97 02/24/18 20:00 02/24/18 22:20 02/24/18 23:42 Temperature 100.6 F H 99.3 F 100.0 F H Pulse Rate 100 H 82 Respiratory Rate 18 16 Blood Pressure 150/66 H 148/65 H Pulse Oximetry 97 92 L 02/25/18 01:10 02/25/18 04:00 02/25/18 07:58 Temperature 97.8 F Pulse Rate 81 79 68 Respiratory Rate 16 Blood Pressure 133/64 Pulse Oximetry 90 L Intake & Output 02/24/18 02/25/18 02/25/18 18:59 06:59 18:59 Intake Total 100 / 100 Output Total 3000 / 3000 Balance -2900 / -2900 Intake: IV 100 / 100 Cleocin 600 mg/NS Premix 600 mg 100 / 100 In 50 ml @ 100 mls/hr IV.SIG Q8H DENIS Rx#:[id number] Output: Hemodialysis Amount 3000 / 3000 Other: # Voids 0 # Bowel Movements 0 - Constitutional no acute distress - Routine HEENT Exam Head: Present: normocephalic ENT: Present: mucous membranes moist - Routine Neck Exam Present: supple. Absent: JVD - Routine Respiratory Exam Present: decreased breath sounds. Absent: rales, rhonchi - Routine Cardiovascular Exam Present: RRR - Routine Abdominal Exam Present: soft, normoactive bowel sounds. Absent: tenderness - Routine Extremities Exam Present: AV fistula. Absent: edema - Routine Skin Exam Present: dry, warm, wounds Comments: Dressing on right side of face - Routine Neurological Exam Present: alert, oriented X3 - Routine Psychiatric Exam Present: cooperative <Raquel Cerda - Last Filed: 02/25/18 09:20> Vital signs: Vital Signs 02/26/18 17:15 02/26/18 18:20 02/26/18 20:00 Temperature 99.0 F 98.4 F 98 F Pulse Rate 78 69 73 Respiratory Rate 14 16 18 Blood Pressure 160/81 H 176/71 H 157/71 H Pulse Oximetry 97 99 98 02/26/18 23:45 02/27/18 00:00 02/27/18 01:00 Temperature 98.1 F Pulse Rate 74 Respiratory Rate 20 Blood Pressure 147/67 H Pulse Oximetry 83 L 100 96 02/27/18 04:00 02/27/18 08:00 Temperature 97.8 F 97.5 F L Pulse Rate 68 68 Respiratory Rate 18 20 Blood Pressure 159/71 H 172/81 H Pulse Oximetry 93 L 98 Intake & Output 02/26/18 02/27/18 02/27/18 18:59 06:59 18:59 Intake Total 550 / 550 50 / 50 Balance 550 / 550 50 / 50 Weight 98.8 kg Intake: IV 50 / 50 50 / 50 Cleocin 600 mg/NS Premix 600 mg 50 / 50 50 / 50 In 50 ml @ 100 mls/hr IV.SIG Q8H DENIS Rx#:[id number] Oral 500 / 500 Other: Weight On Admission 98.4 kg <Nelson Gaston - Last Filed: 02/27/18 11:31> Assessment and Plan - Assessment (1) ESRD (end stage renal disease) on dialysis Code(s): N18.6 - End stage renal disease; Z99.2 - Dependence on renal dialysis Status: Acute Plan: End stage renal disease on hemodialysis Saturday/Saturday/Saturday patient of Dr. Arias Last hemodialysis on Saturday. Avoid IVF administration Continue Renvela and PhosLo Hemodialysis yesterday tolerated well with removal Hemodialysis yesterday with removal of 3 liters of fluid Hemodialysis for tomorrow Labs are pending today (2) Facial cellulitis Code(s): L03.211 - Cellulitis of face Status: Acute Plan: Continue antibiotics. CT of neck done Plastics consulted and I+D done yesterday (3) DM (diabetes mellitus) Code(s): E11.9 - Type 2 diabetes mellitus without complications Status: Acute Plan: Maintain blood sugars between 140 mg/dl to 180 mg/dl <Raquel Cerda - Last Filed: 02/25/18 09:20> - Assessment (1) ESRD (end stage renal disease) on dialysis Code(s): N18.6 - End stage renal disease; Z99.2 - Dependence on renal dialysis Status: Acute (2) Facial cellulitis Code(s): L03.211 - Cellulitis of face Status: Acute (3) DM (diabetes mellitus) Code(s): E11.9 - Type 2 diabetes mellitus without complications Status: Chronic Qualifiers: Diabetes mellitus type: type 2 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 HD will be tomorrow. I and D done, continue antibiotics. <Nelson Gaston - Last Filed: 02/27/18 11:31>
--- NOTE | 2018-02-25 10:08 | P.PN ---
Subjective Interval history: Patient seen sitting up in bed working on word puzzles. Reports that she is feeling well with no new concerns. Face continues to be tender but is slightly improved. She did have some nausea and vomiting last night post dialysis however she says this is typical for her. Does not have any nausea this morning. No diarrhea. No chest pain or shortness of breath. Physical Exam Vital signs: Vital Signs 02/24/18 16:00 02/24/18 18:28 02/24/18 18:40 Temperature 97.5 F L Pulse Rate 97 H Respiratory Rate 22 18 Blood Pressure 210/89 H 193/87 H Pulse Oximetry 97 02/24/18 20:00 02/24/18 22:20 02/24/18 23:42 Temperature 100.6 F H 99.3 F 100.0 F H Pulse Rate 100 H 82 Respiratory Rate 18 16 Blood Pressure 150/66 H 148/65 H Pulse Oximetry 97 92 L 02/25/18 01:10 02/25/18 04:00 02/25/18 07:58 Temperature 97.8 F Pulse Rate 81 79 68 Respiratory Rate 16 Blood Pressure 133/64 Pulse Oximetry 90 L 02/25/18 08:00 Temperature 98.3 F Pulse Rate 71 Respiratory Rate 16 Blood Pressure 152/72 H Pulse Oximetry 98 Intake & Output 02/24/18 02/25/18 02/25/18 18:59 06:59 18:59 Intake Total 100 / 100 Output Total 3000 / 3000 Balance -2900 / -2900 Intake: IV 100 / 100 Cleocin 600 mg/NS Premix 600 mg 100 / 100 In 50 ml @ 100 mls/hr IV.SIG Q8H DENIS Rx#:[id number] Output: Hemodialysis Amount 3000 / 3000 Other: # Voids 0 # Bowel Movements 0 Narrative: GENERAL: Well-nourished, well-developed adult female in no obvious distress. SKIN: Warm and dry. Generalized swelling and erythema of right cheek and jaw. Very tender to touch. Dressing and packing still in place. Draining purulent serosanguineous fluid. HEAD: Atraumatic. Normocephalic. CARDIOVASCULAR: Regular rate and rhythm. RESPIRATORY: No accessory muscle use. Clear to auscultation. Breath sounds equal bilaterally. GASTROINTESTINAL: Abdomen soft, non-tender, non-distended. Positive bowel sounds. MUSCULOSKELETAL: Extremities without clubbing, cyanosis, or edema. No obvious deformities. NEUROLOGICAL: Awake and alert. No obvious cranial nerve deficits. Motor grossly within normal limits. Normal speech. PSYCHIATRIC: Appropriate mood and affect; insight and judgment good. Results - Labs CBC & Chem 7: 02/25/18 10:23 02/25/18 10:23 Laboratory Results - last 24 hr 02/24/18 02/24/18 02/24/18 09:10 11:31 16:58 Sodium 132 L Potassium 6.9 H* D Chloride 100 Carbon Dioxide 15.1 L Anion Gap 17 H BUN 81 H Creatinine 11.32 H* Estimated GFR 4 L POC Glucose 160 H 90 Random Glucose 140 H Calcium 9.0 Total Bilirubin 0.4 AST 9 L ALT 15 Alkaline Phosphatase 168 H Total Protein 8.2 D Albumin 3.0 L Hep Bs Antigen Hep B Core IgM Ab Hep C IgG Ab 02/24/18 02/24/18 02/25/18 17:23 21:18 08:21 Sodium Potassium Chloride Carbon Dioxide Anion Gap BUN Creatinine Estimated GFR POC Glucose 117 H 90 Random Glucose Calcium Total Bilirubin AST ALT Alkaline Phosphatase Total Protein Albumin Hep Bs Antigen Nonreactive Hep B Core IgM Ab Nonreactive Hep C IgG Ab Reactive H Microbiology 02/24/18 15:55 Abscess - Face Gram Stain - Final 02/23/18 19:30 Blood - Peripheral Aerobic Blood Culture - Preliminary No growth in 1 day 02/23/18 19:30 Blood - Peripheral Anaerobic Blood Culture - Preliminary No growth in 1 day 02/23/18 19:35 Blood - Peripheral Aerobic Blood Culture - Preliminary No growth in 1 day 02/23/18 19:35 Blood - Peripheral Anaerobic Blood Culture - Preliminary No growth in 1 day Assessment and Plan - Assessment (1) Facial cellulitis Code(s): L03.211 - Cellulitis of face Status: Acute (2) DM (diabetes mellitus) Code(s): E11.9 - Type 2 diabetes mellitus without complications Status: Acute (3) ESRD (end stage renal disease) on dialysis Code(s): N18.6 - End stage renal disease; Z99.2 - Dependence on renal dialysis Status: Acute - Plan 47-year-old female with a PMH of HTN, DM and ESRD on HD M/W/F who presented to the ER w/ complaints of right-sided facial swelling and pain. Facial Cellulitis/Abscess: swelling/edema to right face x1 wk, attempted to pop wound, now w/ worsening symptoms. -CT Neck w/ prominent induration right mandible, no obvious abscess. -Dr. Pickens performed bedside I&D of facial abscess 02/24, sent fluid for culture, recommends nursing to remove packing tomorrow and repacked; change dressing as needed or when saturated. Continue on antibiotics. ESRD on HD: M/W/F, follows w/ Dr. Maosn -consult nephrology to resume HD as scheduled. Hyperkalemia: acute, K 6.9 02/24 -dialysis on 02/24 -3 L off. Plan to repeat dialysis on 02/26 -nephrology consulted and following -Monitor labs DM: Chronic -Sliding scale w/ Accu-Cheks DVT Prophylaxis: Heparin sq Discharge Planning: Discharge pending further clinical improvement/ culture results.
[2018-02-25 11:45] LABS: Baso % (Auto) 0.7 % (0.0-2.0); Eos # (Auto) 0.2 th/mm3 (0.0-0.4); Eos % (Auto) 2.4 % (0.0-4.0); Hematocrit 34.3 % (35.0-46.0); Hemoglobin 11.1 gm/dL (11.6-15.3); Lymph # (Auto) 0.8 th/mm3 (1.0-4.8); Mean Corpuscular HGB Conc 32.5 % (32.0-36.0); Mean Corpuscular Hemoglobin 29.5 pg (27.0-34.0); Mean Platelet Volume 7.6 fL (7.0-11.0); Mono # (Auto) 0.8 th/mm3 (0.0-0.9); Mono % (Auto) 12.4 % (0.0-8.0); Neut # (Auto) 4.9 th/mm3 (1.8-7.7); Neut % (Auto) 72.5 % (16.0-70.0); Platelet Count 272 th/mm3 (150-450); Red Blood Count 3.77 mil/mm3 (4.00-5.30); Red Cell Distribution Width 16.9 % (11.6-17.2); White Blood Count 6.8 th/mm3 (4.0-11.0)
[2018-02-25 12:20] LABS: Calcium 9.2 mg/dL (8.5-10.1); Carbon Dioxide 25.2 meq/L (21.0-32.0); Potassium 4.9 meq/L (3.5-5.1)
[2018-02-25 12:27] LABS: Phosphorus 8.5 mg/dL (2.5-4.9)
[2018-02-25] MEDS: Clindamycin 600 mg/NS Premix 600 MG/50 ML PIGGYBACK IV.SIG SCH ×2 (12:31→19:46)
[2018-02-25 15:14] LABS: Hepatitis A IgM Antibody Nonreactive (Nonreactive)
[2018-02-26] MEDS: Temazepam 15 MG Capsule PO PRN (00:33)
[2018-02-26] MEDS: Clindamycin 600 mg/NS Premix 600 MG/50 ML PIGGYBACK IV.SIG SCH ×3 (02:49→17:29)
[2018-02-26 06:21] LABS: Baso # (Auto) 0.1 th/mm3 (0.0-0.2); Baso % (Auto) 1.4 % (0.0-2.0); Eos # (Auto) 0.2 th/mm3 (0.0-0.4); Eos % (Auto) 3.8 % (0.0-4.0); Hematocrit 36.5 % (35.0-46.0); Hemoglobin 12.1 gm/dL (11.6-15.3); Lymph # (Auto) 0.9 th/mm3 (1.0-4.8); Lymph % (Auto) 17.5 % (9.0-44.0); Mean Corpuscular HGB Conc 33.1 % (32.0-36.0); Mean Corpuscular Hemoglobin 29.9 pg (27.0-34.0); Mean Corpuscular Volume 90.3 fL (80.0-100.0); Mean Platelet Volume 7.4 fL (7.0-11.0); Mono # (Auto) 0.7 th/mm3 (0.0-0.9); Mono % (Auto) 14.1 % (0.0-8.0); Neut # (Auto) 3.2 th/mm3 (1.8-7.7); Neut % (Auto) 63.2 % (16.0-70.0); Platelet Count 288 th/mm3 (150-450); Red Blood Count 4.05 mil/mm3 (4.00-5.30); Red Cell Distribution Width 16.1 % (11.6-17.2); White Blood Count 5.1 th/mm3 (4.0-11.0)
[2018-02-26 06:49] LABS: Alanine Aminotransferase 16 U/L (10-53); Albumin 3.3 g/dL (3.4-5.0); Alkaline Phosphatase 174 U/L (45-117); Anion Gap 16 meq/L (5-15); Aspartate Aminotransferase 8 U/L (15-37); Blood Urea Nitrogen 59 mg/dL (7-18); Calcium 9.9 mg/dL (8.5-10.1); Carbon Dioxide 28.8 meq/L (21.0-32.0); Chloride 89 meq/L (98-107); Glomerular Filtration Rate 4 mL/min (>89); Glucose,Random 73 mg/dL (74-106); Potassium 4.8 meq/L (3.5-5.1); Sodium 134 meq/L (136-145); Total Protein 8.8 g/dL (6.4-8.2)
[2018-02-26] MEDS: Senna/Docusate Sodium 8.6/50 MG Tablet PO SCH ×2 (08:07→21:52)
[2018-02-26] MEDS: Calcium Acetate 667 MG Capsule PO SCH ×3 (08:07→17:30)
[2018-02-26] MEDS: Heparin - SQ 10,000 UNITS/ML Vial SQ SCH ×2 (08:07→21:49)
[2018-02-26] MEDS: Morphine Inj 4 MG/ML Vial IV.PUSH PRN ×4 (08:15→21:50)
[2018-02-26] MEDS: Epoetin Alfa Inj 4,000 UNIT/ML Vial IV.PUSH PRN (09:22)
--- NOTE | 2018-02-26 09:57 | P.PNNP ---
Subjective Interval history: Seen during hemodialysis. Left side of face with increased swelling, pain, and erythema. <Raquel Cerda - Last Filed: 02/26/18 09:52> Physical Exam Vital signs: Vital Signs 02/25/18 12:00 02/25/18 16:00 02/25/18 20:00 Temperature 98.7 F 98.6 F 98.3 F Pulse Rate 73 84 82 Respiratory Rate 18 18 16 Blood Pressure 147/66 H 167/110 H 157/78 H Pulse Oximetry 95 95 93 L 02/25/18 23:58 02/26/18 01:00 02/26/18 02:53 Temperature 98.2 F Pulse Rate 70 69 Respiratory Rate 16 Blood Pressure 187/81 H 135/70 Pulse Oximetry 94 L 02/26/18 04:00 Temperature 98.5 F Pulse Rate 62 Respiratory Rate 16 Blood Pressure 142/55 H Pulse Oximetry 96 Intake & Output 02/25/18 02/26/18 02/26/18 18:59 06:59 18:59 Intake Total 50 / 50 100 / 100 Output Total 0 / 0 Balance 50 / 50 100 / 100 Intake: IV 50 / 50 100 / 100 Cleocin 600 mg/NS Premix 600 mg 50 / 50 100 / 100 In 50 ml @ 100 mls/hr IV.SIG Q8H DENIS Rx#:[id number] Output: Urine 0 / 0 Other: # Voids 2 Date of Last Bowel Movement 02/25/18 # Bowel Movements 1 - Constitutional no acute distress, obese - Routine HEENT Exam Head: Present: normocephalic ENT: Present: mucous membranes moist Comments: Generalized swelling and erythema of right cheek and jaw. Very tender to touch. Dressing in place - Routine Neck Exam Present: supple. Absent: JVD - Routine Respiratory Exam Present: decreased breath sounds. Absent: rales, rhonchi - Routine Cardiovascular Exam Present: RRR - Routine Abdominal Exam Present: soft, normoactive bowel sounds - Routine Extremities Exam Present: amputation, AV fistula - Routine Skin Exam Present: dry, warm - Routine Neurological Exam Present: alert, oriented X3 - Routine Psychiatric Exam Present: cooperative <Raquel Cerda - Last Filed: 02/26/18 09:52> Vital signs: Vital Signs 02/26/18 17:15 02/26/18 18:20 07/18/18 20:00 Temperature 99.0 F 98.4 F 98 F Pulse Rate 78 69 73 Respiratory Rate 14 16 18 Blood Pressure 160/81 H 176/71 H 157/71 H Pulse Oximetry 97 99 98 02/26/18 23:45 02/27/18 00:00 02/27/18 01:00 Temperature 98.1 F Pulse Rate 74 Respiratory Rate 20 Blood Pressure 147/67 H Pulse Oximetry 83 L 100 96 02/27/18 04:00 02/27/18 08:00 Temperature 97.8 F 97.5 F L Pulse Rate 68 68 Respiratory Rate 18 20 Blood Pressure 159/71 H 172/81 H Pulse Oximetry 93 L 98 Intake & Output 02/26/18 02/27/18 02/27/18 18:59 06:59 18:59 Intake Total 550 / 550 50 / 50 Balance 550 / 550 50 / 50 Weight 98.8 kg Intake: IV 50 / 50 50 / 50 Cleocin 600 mg/NS Premix 600 mg 50 / 50 50 / 50 In 50 ml @ 100 mls/hr IV.SIG Q8H DENIS Rx#:[id number] Oral 500 / 500 Other: Weight On Admission 98.4 kg <Nelson Gaston - Last Filed: 02/27/18 11:45> Assessment and Plan - Assessment (1) ESRD (end stage renal disease) on dialysis Code(s): N18.6 - End stage renal disease; Z99.2 - Dependence on renal dialysis Status: Acute Plan: End stage renal disease on hemodialysis Saturday/Saturday/Saturday patient of Dr. Griffinree Avoid IVF administration Continue Kelsea Seen during hemodialysis 2 K bath will remove fluid as tolerated. (2) Facial cellulitis Code(s): L03.211 - Cellulitis of face Status: Acute Plan: Continue antibiotics. CT of neck done Plastics consulted Increased erythema, pain, and swelling (3) DM (diabetes mellitus) Code(s): E11.9 - Type 2 diabetes mellitus without complications Status: Acute Plan: Maintain blood sugars between 140 mg/dl to 180 mg/dl <Raquel Cerda - Last Filed: 02/26/18 09:52> - Assessment (1) ESRD (end stage renal disease) on dialysis Code(s): N18.6 - End stage renal disease; Z99.2 - Dependence on renal dialysis Status: Acute (2) Facial cellulitis Code(s): L03.211 - Cellulitis of face Status: Acute (3) DM (diabetes mellitus) Code(s): E11.9 - Type 2 diabetes mellitus without complications Status: Chronic Qualifiers: Diabetes mellitus type: type 2 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 HD done, continue MWF. Continue antibiotics. <Nelson Gaston - Last Filed: 02/27/18 11:45>
[2018-02-26] MEDS: Insulin NovoLOG Aspart Correctional Sugar Inj SQ SCH ×3 (09:59→17:29)
--- NOTE | 2018-02-26 15:28 | P.PN ---
Subjective Interval history: Pt is seen sitting up in bed eating lunch. Reports that she is feeling well postdialysis. She continues to have a lot of pain and tenderness in her right cheek. Still draining fluids-dressing was just changed. Denies nausea or vomiting. Denies chills or fever. Physical Exam Vital signs: Vital Signs 02/25/18 16:00 02/25/18 20:00 02/25/18 23:58 Temperature 98.6 F 98.3 F 98.2 F Pulse Rate 84 82 70 Respiratory Rate 18 16 16 Blood Pressure 167/110 H 157/78 H 187/81 H Pulse Oximetry 95 93 L 94 L 02/26/18 01:00 02/26/18 02:53 02/26/18 04:00 Temperature 98.5 F Pulse Rate 69 62 Respiratory Rate 16 Blood Pressure 135/70 142/55 H Pulse Oximetry 96 Intake & Output 02/25/18 02/26/18 02/26/18 18:59 06:59 18:59 Intake Total 50 / 50 100 / 100 Output Total 0 / 0 Balance 50 / 50 100 / 100 Intake: IV 50 / 50 100 / 100 Cleocin 600 mg/NS Premix 600 mg 50 / 50 100 / 100 In 50 ml @ 100 mls/hr IV.SIG Q8H DENIS Rx#:[id number] Output: Urine 0 / 0 Other: # Voids 2 Date of Last Bowel Movement 02/25/18 # Bowel Movements 1 Narrative: GENERAL: Well-nourished, well-developed adult female in no obvious distress. SKIN: Warm and dry. Generalized swelling and erythema of right cheek and jaw. Very tender to touch. Dressing and packing still in place. Draining purulent serosanguineous fluid. HEAD: Atraumatic. Normocephalic. CARDIOVASCULAR: Regular rate and rhythm. RESPIRATORY: No accessory muscle use. Clear to auscultation. Breath sounds equal bilaterally. GASTROINTESTINAL: Abdomen soft, non-tender, non-distended. Positive bowel sounds. MUSCULOSKELETAL: Extremities without clubbing, cyanosis, or edema. No obvious deformities. NEUROLOGICAL: Awake and alert. No obvious cranial nerve deficits. Motor grossly within normal limits. Normal speech. PSYCHIATRIC: Appropriate mood and affect; insight and judgment good. Results - Labs CBC & Chem 7: 02/26/18 06:06 02/26/18 06:06 Laboratory Results - last 24 hr 02/24/18 02/25/18 02/26/18 17:23 18:40 06:06 WBC 5.1 RBC 4.05 Hgb 12.1 Hct 36.5 MCV 90.3 MCH 29.9 MCHC 33.1 RDW 16.1 Plt Count 288 MPV 7.4 Neut % (Auto) 63.2 Lymph % (Auto) 17.5 Benson % (Auto) 14.1 H Eos % (Auto) 3.8 Baso % (Auto) 1.4 Neut # (Auto) 3.2 Lymph # (Auto) 0.9 L Benson # (Auto) 0.7 Eos # (Auto) 0.2 Baso # (Auto) 0.1 WBC Differential . Differential Comment Auto diff final Sodium Potassium Chloride Carbon Dioxide Anion Gap BUN Creatinine Estimated GFR POC Glucose 98 Random Glucose Calcium Total Bilirubin AST ALT Alkaline Phosphatase Total Protein Albumin Hepatitis A IgM Ab Nonreactive 02/26/18 02/26/18 02/26/18 06:06 08:03 11:38 WBC RBC Hgb Hct MCV MCH MCHC RDW Plt Count MPV Neut % (Auto) Lymph % (Auto) Benson % (Auto) Eos % (Auto) Baso % (Auto) Neut # (Auto) Lymph # (Auto) Benson # (Auto) Eos # (Auto) Baso # (Auto) WBC Differential Differential Comment Sodium 134 L Potassium 4.8 Chloride 89 L D Carbon Dioxide 28.8 Anion Gap 16 H BUN 59 H Creatinine 10.01 H* D Estimated GFR 4 L POC Glucose 130 H 90 Random Glucose 73 L Calcium 9.9 Total Bilirubin 0.4 AST 8 L ALT 16 Alkaline Phosphatase 174 H Total Protein 8.8 H D Albumin 3.3 L Hepatitis A IgM Ab Microbiology 02/24/18 15:55 Abscess - Face Gram Stain - Final 02/24/18 15:55 Abscess - Face Wound Culture - Final S. aureus MRSA 02/23/18 19:30 Blood - Peripheral Aerobic Blood Culture - Preliminary No growth in 3 days 02/23/18 19:30 Blood - Peripheral Anaerobic Blood Culture - Preliminary No growth in 3 days 02/23/18 19:35 Blood - Peripheral Aerobic Blood Culture - Preliminary No growth in 3 days 02/23/18 19:35 Blood - Peripheral Anaerobic Blood Culture - Preliminary No growth in 3 days Assessment and Plan - Assessment (1) Facial cellulitis Code(s): L03.211 - Cellulitis of face Status: Acute (2) DM (diabetes mellitus) Code(s): E11.9 - Type 2 diabetes mellitus without complications Status: Acute (3) ESRD (end stage renal disease) on dialysis Code(s): N18.6 - End stage renal disease; Z99.2 - Dependence on renal dialysis Status: Acute - Plan 47-year-old female with a PMH of HTN, DM and ESRD on HD M/W/F who presented to the ER w/ complaints of right-sided facial swelling and pain. Facial Cellulitis/Abscess: swelling/edema to right face x1 wk, attempted to pop wound, now w/ worsening symptoms. -CT Neck w/ prominent induration right mandible, no obvious abscess. -Dr. Pickens performed bedside I&D of facial abscess 02/24, sent fluid for culture, recommends nursing to remove packing tomorrow and repacked; change dressing as needed or when saturated. Continue on antibiotics - currently on clindamycin-sensitive per culture. ESRD on HD: M/W/F, follows w/ Dr. Mason -consult nephrology - resume HD as scheduled. -dialysis on 02/26 - tolerated well. -Monitor labs DM: Chronic -Sliding scale w/ Accu-Cheks DVT Prophylaxis: Heparin sq Discharge Planning: Discharge pending further clinical improvement/ culture results.
[2018-02-27] MEDS: Clindamycin 600 mg/NS Premix 600 MG/50 ML PIGGYBACK IV.SIG SCH ×3 (05:16→18:10)
[2018-02-27] MEDS: Insulin NovoLOG Aspart Correctional Sugar Inj SQ SCH ×5 (05:17→20:10)
[2018-02-27] MEDS: Morphine Inj 4 MG/ML Vial IV.PUSH PRN ×4 (07:00→20:28)
[2018-02-27] MEDS: Senna/Docusate Sodium 8.6/50 MG Tablet PO SCH ×2 (09:31→20:08)
[2018-02-27] MEDS: Calcium Acetate 667 MG Capsule PO SCH ×3 (09:31→18:04)
[2018-02-27] MEDS: Heparin - SQ 10,000 UNITS/ML Vial SQ SCH ×2 (09:36→20:07)
--- NOTE | 2018-02-27 10:43 | P.PNIM ---
Subjective Interval history: States that she is still feeling hardened area over the left lower facial area. She does not feel better. Physical Exam Vital signs: Vital Signs 02/26/18 17:15 02/26/18 18:20 02/26/18 20:00 Temperature 99.0 F 98.4 F 98 F Pulse Rate 78 69 73 Respiratory Rate 14 16 18 Blood Pressure 160/81 H 176/71 H 157/71 H Pulse Oximetry 97 99 98 02/26/18 23:45 02/27/18 00:00 02/27/18 01:00 Temperature 98.1 F Pulse Rate 74 Respiratory Rate 20 Blood Pressure 147/67 H Pulse Oximetry 83 L 100 96 02/27/18 04:00 02/27/18 08:00 Temperature 97.8 F 97.5 F L Pulse Rate 68 68 Respiratory Rate 18 20 Blood Pressure 159/71 H 172/81 H Pulse Oximetry 93 L 98 Intake & Output 02/26/18 02/27/18 02/27/18 18:59 06:59 18:59 Intake Total 550 / 550 50 / 50 Balance 550 / 550 50 / 50 Weight 98.8 kg Intake: IV 50 / 50 50 / 50 Cleocin 600 mg/NS Premix 600 mg 50 / 50 50 / 50 In 50 ml @ 100 mls/hr IV.SIG Q8H [facility] Rx#:[id number] Oral 500 / 500 Other: Weight On Admission 98.4 kg Narrative: GENERAL: Well-nourished, well-developed adult female in no obvious distress. SKIN: Warm and dry. Generalized swelling and erythema of right lower cheek and jaw. Very tender to touch. Dressing and packing still in place. Continued draining of purulent serosanguineous fluid. HEAD: Atraumatic. Normocephalic. CARDIOVASCULAR: Regular rate and rhythm. RESPIRATORY: No accessory muscle use. Clear to auscultation. Breath sounds equal bilaterally. GASTROINTESTINAL: Abdomen soft, non-tender, non-distended. Positive bowel sounds. MUSCULOSKELETAL: Extremities without clubbing, cyanosis, or edema. No obvious deformities. NEUROLOGICAL: Awake and alert. No obvious cranial nerve deficits. Motor grossly within normal limits. Normal speech. PSYCHIATRIC: Appropriate mood and affect; insight and judgment good. Results - Labs CBC & Chem 7: 02/26/18 06:06 02/26/18 06:06 Laboratory Results - last 24 hr 02/26/18 02/26/18 02/26/18 11:38 17:28 20:20 POC Glucose 90 128 H 129 H 02/27/18 08:35 POC Glucose 89 Microbiology 02/24/18 15:55 Abscess - Face Gram Stain - Final 02/24/18 15:55 Abscess - Face Wound Culture - Final S. aureus MRSA 02/23/18 19:30 Blood - Peripheral Aerobic Blood Culture - Preliminary No growth in 3 days 02/23/18 19:30 Blood - Peripheral Anaerobic Blood Culture - Preliminary No growth in 3 days 02/23/18 19:35 Blood - Peripheral Aerobic Blood Culture - Preliminary No growth in 3 days 02/23/18 19:35 Blood - Peripheral Anaerobic Blood Culture - Preliminary No growth in 3 days - Procedures I&D of facial abscess 02/24 Assessment and Plan - Assessment (1) Facial cellulitis Code(s): L03.211 - Cellulitis of face Status: Acute (2) DM (diabetes mellitus) Code(s): E11.9 - Type 2 diabetes mellitus without complications Status: Chronic (3) ESRD (end stage renal disease) on dialysis Code(s): N18.6 - End stage renal disease; Z99.2 - Dependence on renal dialysis Status: Acute - Plan 47-year-old female with a PMH of HTN, DM and ESRD on HD M// who presented to the ER w/ complaints of right-sided facial swelling and pain. Facial Cellulitis/Abscess: swelling/edema to right face x1 wk, attempted to pop wound, now w/ worsening symptoms. -CT Neck w/ prominent induration right mandible, no obvious abscess. -Dr. Pickens performed bedside I&D of facial abscess 02/24, sent fluid for culture, recommends nursing to remove packing and repacked; change dressing as needed or when saturated. Continue on antibiotics - currently on clindamycin- sensitive per culture with MRSA. Continue to monitor patient clinically to determine no further I&D is needed. ESRD on HD: //, follows w/ Dr. Mason -consult nephrology - resume HD as scheduled. -dialysis on 02/26 - tolerated well. Next dialysis tomorrow. -Monitor labs DM type II: Chronic -Sliding scale w/ Accu-Cheks, overall blood sugars fairly controlled. DVT Prophylaxis: Heparin sq. Discharge Planning: Possible discharge in the next 24-48 hours pending clinical improvement. (2) DM (diabetes mellitus) Qualifiers: Diabetes mellitus type: type 2 Diabetes mellitus half-way insulin use: without half-way use Diabetes mellitus complication status: with skin complications Diabetes mellitus complication detail: with other skin complication Qualified Code(s): E11.628 - Type 2 diabetes mellitus with other skin complications
--- NOTE | 2018-02-27 10:45 | P.PNNP ---
Subjective Interval history: Hemodialysis yesterday. Reports increased pain and swelling in right facial region. <Raquel Cerda - Last Filed: 02/27/18 10:45> Physical Exam Vital signs: Vital Signs 02/26/18 17:15 02/26/18 18:20 02/26/18 20:00 Temperature 99.0 F 98.4 F 98 F Pulse Rate 78 69 73 Respiratory Rate 14 16 18 Blood Pressure 160/81 H 176/71 H 157/71 H Pulse Oximetry 97 99 98 02/26/18 23:45 02/27/18 00:00 02/27/18 01:00 Temperature 98.1 F Pulse Rate 74 Respiratory Rate 20 Blood Pressure 147/67 H Pulse Oximetry 83 L 100 96 02/27/18 04:00 02/27/18 08:00 Temperature 97.8 F 97.5 F L Pulse Rate 68 68 Respiratory Rate 18 20 Blood Pressure 159/71 H 172/81 H Pulse Oximetry 93 L 98 Intake & Output 02/26/18 02/27/18 02/27/18 18:59 06:59 18:59 Intake Total 550 / 550 50 / 50 Balance 550 / 550 50 / 50 Weight 98.8 kg Intake: IV 50 / 50 50 / 50 Cleocin 600 mg/NS Premix 600 mg 50 / 50 50 / 50 In 50 ml @ 100 mls/hr IV.SIG Q8H [facility] Rx#:[id number] Oral 500 / 500 Other: Weight On Admission 98.4 kg - Constitutional no acute distress - Routine HEENT Exam Head: Present: normocephalic ENT: Present: mucous membranes moist - Routine Neck Exam Present: supple. Absent: JVD Comments: Swelling and erythema of right cheek and jaw. Very tender to touch. Dressing in place - Routine Respiratory Exam Present: CTA bilaterally. Absent: rales - Routine Cardiovascular Exam Present: RRR - Routine Abdominal Exam Present: soft, normoactive bowel sounds - Routine Extremities Exam Present: AV fistula. Absent: edema - Routine Skin Exam Present: dry, warm - Routine Neurological Exam Present: alert, oriented X3 - Routine Psychiatric Exam Present: cooperative <Raquel Cerda - Last Filed: 02/27/18 10:45> Assessment and Plan - Assessment (1) ESRD (end stage renal disease) on dialysis Code(s): N18.6 - End stage renal disease; Z99.2 - Dependence on renal dialysis Status: Acute Plan: End stage renal disease on hemodialysis Saturday/Saturday/Saturday patient of Dr. Arias Avoid IVF administration Continue Renvela and PhosLo Hemodialysis yesterday tolerated well Hemodialysis tomorrow (2) Facial cellulitis Code(s): L03.211 - Cellulitis of face Status: Acute Plan: Continue antibiotics. CT of neck done Plastics consulted Increased erythema, pain, and swelling (3) DM (diabetes mellitus) Code(s): E11.9 - Type 2 diabetes mellitus without complications Status: Chronic Qualifiers: Diabetes mellitus type: type 2 Diabetes mellitus jail insulin use: without superintendent terminal use Diabetes mellitus complication status: with skin complications Diabetes mellitus complication detail: with other skin complication Qualified Code(s): E11.628 - Type 2 diabetes mellitus with other skin complications Plan: Maintain blood sugars between 140 mg/dl to 180 mg/dl (4) Hypertension Code(s): I10 - Essential (primary) hypertension Status: Acute Plan: Added scheduled clonidine, possible elevation related to pain <Raquel Cerda - Last Filed: 02/27/18 10:45> - Assessment (1) ESRD (end stage renal disease) on dialysis Code(s): N18.6 - End stage renal disease; Z99.2 - Dependence on renal dialysis Status: Acute (2) Facial cellulitis Code(s): L03.211 - Cellulitis of face Status: Acute (3) DM (diabetes mellitus) Code(s): E11.9 - Type 2 diabetes mellitus without complications Status: Chronic Qualifiers: Diabetes mellitus type: type 2 Diabetes mellitus superintendent terminal insulin use: without jail use Diabetes mellitus complication status: with skin complications Diabetes mellitus complication detail: with other skin complication Qualified Code(s): E11.628 - Type 2 diabetes mellitus with other skin complications (4) Hypertension Code(s): I10 - Essential (primary) hypertension Status: Acute - Plan Patient seen and examined, agree with above. Continue HD as per schedule. Continue antibiotics. <Nelson Gaston - Last Filed: 03/20/18 23:34>
[2018-02-27] MEDS: amLODIPine 10 MG Tablet PO SCH (13:49)
--- NOTE | 2018-02-27 15:11 | P.PNPLA ---
Subjective Remarks: The patient feels that the abscess is reforming. Objective Vital Signs: Vital Signs - 24 hr 02/26/18 17:15 02/26/18 18:20 02/26/18 20:00 Temperature 99.0 F 98.4 F 98 F Pulse Rate 78 69 73 Respiratory Rate 14 16 18 Blood Pressure 160/81 H 176/71 H 157/71 H Pulse Oximetry 97 99 98 02/26/18 23:45 02/27/18 00:00 02/27/18 01:00 Temperature 98.1 F Pulse Rate 74 Respiratory Rate 20 Blood Pressure 147/67 H Pulse Oximetry 83 L 100 96 02/27/18 04:00 02/27/18 08:00 02/27/18 12:33 Temperature 97.8 F 97.5 F L Pulse Rate 68 68 Respiratory Rate 18 20 20 Blood Pressure 159/71 H 172/81 H Pulse Oximetry 93 L 98 02/27/18 14:11 Temperature Pulse Rate Respiratory Rate Blood Pressure Pulse Oximetry 98 Intake & Output 02/25/18 02/26/18 02/27/18 02/28/18 06:59 06:59 06:59 06:59 Intake Total 100 / 100 150 / 150 600 / 600 Output Total 3000 / 3000 0 / 0 Balance -2900 / -2900 150 / 150 600 / 600 Weight 98.8 kg Laboratory Results: Laboratory Results - last 24 hr 02/26/18 02/26/18 02/27/18 17:28 20:20 08:35 POC Glucose 128 H 129 H 89 02/27/18 12:31 POC Glucose 106 Microbiology 02/23/18 19:30 Aerobic Blood Culture - Preliminary Blood - Peripheral No growth in 4 days Anaerobic Blood Culture - Preliminary No growth in 4 days 02/23/18 19:35 Aerobic Blood Culture - Preliminary Blood - Peripheral No growth in 4 days Anaerobic Blood Culture - Preliminary No growth in 4 days 02/24/18 15:55 Gram Stain - Final Abscess - Face Wound Culture - Final S. aureus MRSA Result Diagrams: 02/26/18 06:06 02/26/18 06:06 Exam Findings: The patient continues to have significant induration of the lower mandibular area on the right side. Her white count is normal. Assessment and Plan - Diagnosis (1) Facial cellulitis Status: Acute Code(s): L03.211 - Cellulitis of face - Plan Impression: The patient appears to have had a relapse of her abscess. Plan: I will explore the wound under general anesthesia. The patient understands and accepts the risks and complications of the surgery.
[2018-02-28] MEDS: Temazepam 15 MG Capsule PO PRN (00:31)
[2018-02-28] MEDS: Morphine Inj 4 MG/ML Vial IV.PUSH PRN ×2 (00:31→04:24)
[2018-02-28] MEDS: Clindamycin 600 mg/NS Premix 600 MG/50 ML PIGGYBACK IV.SIG SCH ×3 (01:07→17:18)
[2018-02-28] MEDS: Calcium Acetate 667 MG Capsule PO SCH ×3 (08:22→17:18)
[2018-02-28] MEDS: amLODIPine 10 MG Tablet PO SCH (08:22)
[2018-02-28] MEDS: Senna/Docusate Sodium 8.6/50 MG Tablet PO SCH ×2 (08:22→20:52)
[2018-02-28] MEDS ORDERED: Ketamine Inj 500 MG/10 ML Vial ONE (09:53)
[2018-02-28] MEDS ORDERED: Dextrose 5%/NaCl 0.45% Inj 500 ML IV.SIG ONE (10:00)
[2018-02-28] MEDS ORDERED: Sodium Bicarbonate 8.4% Inj 50 MEQ/50 ML Syringe ONE (10:16)
[2018-02-28] MEDS ORDERED: Bupivacaine PF 0.5% Inj 30 ML Vial ONE (10:17)
--- NOTE | 2018-02-28 10:49 | P.OP ---
- Preoperative Diagnosis (1) Facial abscess - Postoperative Diagnosis (1) Facial abscess Date of procedure: 02/28/18 Procedure: Incision and drainage of facial abscess. Anesthesia: MAC Surgeon: Micaela Pickens MD Estimated blood loss (mL): 10 Operation and Findings: Incision and drainage of abscess of the right cheek.
--- NOTE | 2018-02-28 11:08 | MP ---
cc: Micaela Pickens MD DATE OF OPERATION: 02/28/2018 PREOPERATIVE DIAGNOSIS: Recurrent abscess of right cheek. POSTOPERATIVE DIAGNOSIS: Abscess of right cheek. PROCEDURE PERFORMED: Exploration of abscess of right cheek. ANESTHESIA: MAC. SURGEON: Micaela Pickens MD INDICATIONS: A 47-year-old female diabetic with a history of kidney failure, who had a facial abscess drained in the emergency room. Despite the white count returning to normal. The patient continued to complain of pain and swelling. The induration did persist. Exploration was indicated in order to evaluate the presence of residual abscess cavities. FINDINGS: I did not note the presence of any additional abscess cavities, although the cavity was quite large and I made a counter incision along the inferior aspect of the abscess cavity in order to allow for drainage and recovery. OPERATIVE TIME: Approximately 30 minutes. DESCRIPTION OF PROCEDURE: The patient was seen preoperatively where the site and side were identified and marked. The patient was then taken to the operating room and placed in a supine position. Her identity was checked against the arm band and consent form, site and site confirmed. Timeout called prior to beginning the procedure. The area of the abscess was prepped with Hibiclens and draped in the usual sterile fashion. Ropivacaine 0.5% plain was used to make a field block. Once the anesthetic had adequately taken effect, the abscess cavity was explored. Attempt was made to break up any additional loculations. Despite the induration, no additional abscess cavities were noted. The cavity was quite large. It went approximately 4-5 cm inferiorly and so a separate counter-incision was made in the neck area in order to allow for drainage. Once this was completed, the wound was copiously irrigated with saline and packed with half-inch plain packing. It was then dressed with Telfa and a Tegaderm dressing. The patient was then taken from the operating room to the recovery room in satisfactory condition, having tolerated the procedure well. Postoperative instructions include removing the dressing in the morning and the packing and continue with the present wound care. MD MAXX Allen/RENATO , 10:55 AM , 11:07 AM JOSE RAUL
--- NOTE | 2018-02-28 12:23 | P.PNNP ---
Subjective Interval history: Patient now on HD, has pain at site of abscess drainage. Physical Exam Vital signs: Vital Signs 02/27/18 12:33 02/27/18 14:11 02/27/18 16:00 Temperature 98.0 F Pulse Rate 75 Respiratory Rate 20 20 Blood Pressure 206/90 H Pulse Oximetry 98 100 02/27/18 20:00 02/27/18 22:19 02/28/18 00:00 Temperature 97.8 F 97.7 F Pulse Rate 73 67 Respiratory Rate 20 20 Blood Pressure 202/87 H 155/67 H Pulse Oximetry 100 100 96 02/28/18 04:00 02/28/18 08:00 Temperature 97.8 F 97.5 F L Pulse Rate 64 62 Respiratory Rate 20 20 Blood Pressure 158/70 H 148/82 H Pulse Oximetry 98 92 L Intake & Output 02/27/18 02/28/18 02/28/18 18:59 06:59 18:59 Intake Total 650 / 650 220 / 220 Output Total 0 / 0 Balance 650 / 650 220 / 220 Weight 98.9 kg Intake: IV 50 / 50 100 / 100 Cleocin 600 mg/NS Premix 600 mg 50 / 50 100 / 100 In 50 ml @ 100 mls/hr IV.SIG Q8H [facility] Rx#:[id number] Oral 600 / 600 120 / 120 Output: Urine 0 / 0 Other: # Voids 0 Date of Last Bowel Movement 02/25/18 02/25/18 # Bowel Movements 1 0 Narrative: GENERAL: Well-nourished, well-developed adult female in no obvious distress. SKIN: Warm and dry. Generalized swelling and erythema of right lower cheek and jaw. Very tender to touch. Dressing and packing still in place. HEAD: Atraumatic. Normocephalic. CARDIOVASCULAR: Regular rate and rhythm. RESPIRATORY: No accessory muscle use. Clear to auscultation. Breath sounds equal bilaterally. GASTROINTESTINAL: Abdomen soft, non-tender, non-distended. Positive bowel sounds. MUSCULOSKELETAL: Extremities without clubbing, cyanosis, or edema. No obvious deformities. NEUROLOGICAL: Awake and alert. No obvious cranial nerve deficits. Motor grossly within normal limits. Normal speech. PSYCHIATRIC: Appropriate mood and affect; insight and judgment good. Assessment and Plan - Assessment (1) ESRD (end stage renal disease) on dialysis Code(s): N18.6 - End stage renal disease; Z99.2 - Dependence on renal dialysis Status: Acute Plan: End stage renal disease on hemodialysis Saturday/Saturday/Saturday patient of Dr. Arias Avoid IVF administration Continue Renvela and PhosLo Hemodialysis now, removing fluid as tolerated. (2) Facial cellulitis Code(s): L03.211 - Cellulitis of face Status: Acute Plan: Continue antibiotics. CT of neck done Plastics consulted Increased erythema, pain, and swelling. Now post Incision and drainage of facial abscess. (3) DM (diabetes mellitus) Code(s): E11.9 - Type 2 diabetes mellitus without complications Status: Chronic Qualifiers: Diabetes mellitus type: type 2 Diabetes mellitus long-term insulin use: without rn infusion use Diabetes mellitus complication status: with skin complications Diabetes mellitus complication detail: with other skin complication Qualified Code(s): E11.628 - Type 2 diabetes mellitus with other skin complications Plan: Maintain blood sugars between 140 mg/dl to 180 mg/dl (4) Hypertension Code(s): I10 - Essential (primary) hypertension Status: Acute Plan: Added scheduled clonidine, possible elevation related to pain - Plan Patient seen and examined, agree with above. Patient seen during HD, continue antibiotics. Remove fluid as tolerated.
[2018-02-28] MEDS ORDERED: Lidocaine PF 1% Inj 5 ML Syringe INFILTRATN ONE (12:32)
[2018-02-28] MEDS ORDERED: Glycopyrrolate Inj 1 MG/5 ML Syringe IV.PUSH ONE (12:32)
[2018-02-28] MEDS ORDERED: Neostigmine Inj 5 MG/5 ML Syringe IV.PUSH ONE (12:32)
--- NOTE | 2018-02-28 15:14 | P.PNIM ---
Subjective Interval history: Doing okay with no significant pain at this time feels much better after another surgical drainage. Physical Exam Vital signs: Vital Signs 02/27/18 16:00 02/27/18 20:00 02/27/18 22:19 Temperature 98.0 F 97.8 F Pulse Rate 75 73 Respiratory Rate 20 20 Blood Pressure 206/90 H 202/87 H Pulse Oximetry 100 100 100 02/28/18 00:00 02/28/18 04:00 02/28/18 08:00 Temperature 97.7 F 97.8 F 97.5 F L Pulse Rate 67 64 62 Respiratory Rate 20 20 20 Blood Pressure 155/67 H 158/70 H 148/82 H Pulse Oximetry 96 98 92 L 02/28/18 11:00 02/28/18 11:15 Temperature Pulse Rate 69 67 Respiratory Rate 16 16 Blood Pressure 139/68 147/69 H Pulse Oximetry 94 L 95 Intake & Output 02/27/18 02/28/18 02/28/18 18:59 06:59 18:59 Intake Total 650 / 650 220 / 220 550 / 550 Output Total 0 / 0 5 / 5 Balance 650 / 650 220 / 220 545 / 545 Weight 98.9 kg Intake: IV 50 / 50 100 / 100 300 / 300 Cleocin 600 mg/NS Premix 600 mg 50 / 50 100 / 100 50 / 50 In 50 ml @ 100 mls/hr IV.SIG Q8H [facility] Rx#:[id number] D5W-1/2 NS Inj 500 ML @ 30 mls/ 250 / 250 hr IV.SIG .[id number] Rx#: [id number] Oral 600 / 600 120 / 120 Anesthesia Amount 250 / 250 Output: Urine 0 / 0 Estimated Blood Loss 5 / 5 Other: # Voids 0 Date of Last Bowel Movement 02/25/18 02/25/18 # Bowel Movements 1 0 Narrative: GENERAL: Well-nourished, well-developed adult female in no obvious distress. SKIN: Warm and dry. Generalized swelling and decreased erythema of right lower jaw and cheek dressing and packing still in place, clear dry intact. HEAD: Atraumatic. Normocephalic. CARDIOVASCULAR: Regular rate and rhythm. RESPIRATORY: No accessory muscle use. Clear to auscultation. Breath sounds equal bilaterally. GASTROINTESTINAL: Abdomen soft, non-tender, non-distended. Positive bowel sounds. MUSCULOSKELETAL: Extremities without clubbing, cyanosis, or edema. No obvious deformities. NEUROLOGICAL: Awake and alert. No obvious cranial nerve deficits. Motor grossly within normal limits. Normal speech. PSYCHIATRIC: Appropriate mood and affect; insight and judgment good. Results - Labs CBC & Chem 7: 02/26/18 06:06 02/28/18 11:11 Laboratory Results - last 24 hr 02/27/18 02/27/18 02/28/18 17:13 20:10 07:41 Potassium POC Glucose 83 99 75 Calcium 02/28/18 02/28/18 02/28/18 09:01 10:55 11:11 Potassium POC Glucose 70 98 Calcium Cancelled 02/28/18 11:11 Potassium 3.4 L POC Glucose Calcium Microbiology 02/23/18 19:30 Blood - Peripheral Aerobic Blood Culture - Final No growth in 5 days 02/23/18 19:30 Blood - Peripheral Anaerobic Blood Culture - Final No growth in 5 days 02/23/18 19:35 Blood - Peripheral Aerobic Blood Culture - Final No growth in 5 days 02/23/18 19:35 Blood - Peripheral Anaerobic Blood Culture - Final No growth in 5 days - Procedures I&D of facial abscess 02/24 02/28 repeat incision and drainage of facial abscess with Dr. Pickens Assessment and Plan - Assessment (1) Facial cellulitis Code(s): L03.211 - Cellulitis of face Status: Acute (2) DM (diabetes mellitus) Code(s): E11.9 - Type 2 diabetes mellitus without complications Status: Chronic (3) ESRD (end stage renal disease) on dialysis Code(s): N18.6 - End stage renal disease; Z99.2 - Dependence on renal dialysis Status: Acute - Plan 47-year-old female with a PMH of HTN, DM and ESRD on HD M/W/F who presented to the ER w/ complaints of right-sided facial swelling and pain. Facial Cellulitis/Abscess: swelling/edema to right face x1 wk, attempted to pop wound, now w/ worsening symptoms. -CT Neck w/ prominent induration right mandible, no obvious abscess. -Dr. Pickens performed bedside I&D of facial abscess 02/24, sent fluid for culture, recommends nursing to remove packing and repacked; change dressing as needed or when saturated. Continue on antibiotics - currently on clindamycin- sensitive per culture with MRSA. Repeat incision and drainage was performed with a facial abscess today. Per Dr. Pickens, likely can be discharged home in next 24 hours on p.o. clindamycin. ESRD on HD: M/W/F, follows w/ Dr. Mason -consult nephrology - resume HD as scheduled. Currently getting dialysis at this time. DM type II: Chronic -Sliding scale w/ Accu-Cheks, overall blood sugars fairly controlled. DVT Prophylaxis: Heparin sq. Discharge Planning: Possible discharge in next 24 hours if patient continues to improve on p.o. antibiotics. (2) DM (diabetes mellitus) Qualifiers: Diabetes mellitus type: type 2 Diabetes mellitus skilled nursing insulin use: without skilled nursing use Diabetes mellitus complication status: with skin complications Diabetes mellitus complication detail: with other skin complication Qualified Code(s): E11.628 - Type 2 diabetes mellitus with other skin complications
[2018-02-28] MEDS: Insulin NovoLOG Aspart Correctional Sugar Inj SQ SCH ×3 (15:58→20:52)
[2018-02-28] MEDS: Heparin - SQ 10,000 UNITS/ML Vial SQ SCH ×2 (16:00→20:51)
[2018-03-01] MEDS: Clindamycin 600 mg/NS Premix 600 MG/50 ML PIGGYBACK IV.SIG SCH ×2 (01:50→09:27)
--- NOTE | 2018-03-01 08:40 | P.DS ---
Date of admission: 02/25/18 16:46 Primary care physician: Shannan Garcia MD Anticipated date of discharge: 03/01/18 Brief History from admission: This is a 47-year-old female with a PMH of HTN, DM and ESRD on HD / who presented to the ER w/ complaints of right-sided facial swelling and pain. States symptoms started approximately 1wk ago, thought it was due to "ingrown hair", attempted to pop it, now progressively worse w/ increased swelling/ tenderness. Notes some drainage. Denies fever, chills. On arrival, BP 139/77 , HR 85, O2 sat 91% on 3L NC, Temp 99.2. CBC essentially unremarkable. Creatinine 10.69, previous E5.34 on 12/24/2017. CT Neck w/ prominent area of induration inferior right face at level of mandible consistent with infection/ inflammatory change, no abscess seen. Dr. Tee consulted by ER physician, recommended consultation w/ Plastic Surgery for possible intervention. DS: Diagnosis - Discharge Diagnosis (1) Facial cellulitis Status: Acute Diagnosis: Principal (2) DM (diabetes mellitus) Status: Chronic Diagnosis: Secondary (3) ESRD (end stage renal disease) on dialysis Status: Acute Diagnosis: Secondary DS: Summary Hospital Course: These are the medical issues addressed during this hospitalization: 47-year-old female with a PMH of HTN, DM and ESRD on HD / who presented to the ER w/ complaints of right-sided facial swelling and pain. Facial Cellulitis/Abscess: swelling/edema to right face x1 wk, attempted to pop wound, now w/ worsening symptoms. -CT Neck w/ prominent induration right mandible, no obvious abscess. -Dr. Pickens performed bedside I&D of facial abscess 02/24, sent fluid for culture, recommends nursing to remove packing and repacked; change dressing as needed or when saturated. Continue on antibiotics - currently on clindamycin- sensitive per culture with MRSA. Repeat incision and drainage was performed with a facial abscess on 02/28. Per Dr. Pickens, likely can be discharged home on p.o. clindamycin with outpatient follow-up. ESRD on HD: //, follows w/ Dr. Mason -consult nephrology - resume HD as scheduled. Currently getting dialysis at this time. DM type II: Chronic -Sliding scale w/ Accu-Cheks, overall blood sugars fairly controlled. DVT Prophylaxis: Heparin sq. at this time, Patient has gained maximum benefit from hospitalization and is ready to be discharged to home with outpatient follow-up. - Time Spent with Patient Total time spent providing and/or coordinating discharge services: Less than 30 minutes - Quality: VTE Deep Vein Thrombosis/Pulmonary Embolism Present on Admission: No Exam Vital signs: Vital Signs 02/28/18 11:00 02/28/18 11:15 02/28/18 16:00 Temperature 98.3 F Pulse Rate 69 67 71 Respiratory Rate 16 16 20 Blood Pressure 139/68 147/69 H 139/65 Pulse Oximetry 94 L 95 96 02/28/18 20:00 02/28/18 20:51 03/01/18 00:00 Temperature 98.1 F 98.2 F Pulse Rate 71 69 Respiratory Rate 20 18 Blood Pressure 141/87 H 135/63 Pulse Oximetry 95 96 96 03/01/18 04:00 Temperature 97.3 F L Pulse Rate 71 Respiratory Rate 18 Blood Pressure 159/70 H Pulse Oximetry 100 Intake & Output 02/28/18 03/01/18 03/01/18 18:59 06:59 18:59 Intake Total 550 / 550 220 / 220 Output Total 3005 / 3005 Balance -2455 / -2455 220 / 220 Weight 99.5 kg Intake: IV 300 / 300 100 / 100 Cleocin 600 mg/NS Premix 600 mg 50 / 50 100 / 100 In 50 ml @ 100 mls/hr IV.SIG Q8H DENIS Rx#:[id number] D5W-1/2 NS Inj 500 ML @ 30 mls/ 250 / 250 hr IV.SIG .[id number] ONE Rx#: [id number] Oral 0 / 0 120 / 120 Anesthesia Amount 250 / 250 Output: Urine 0 / 0 Hemodialysis Amount 3000 / 3000 Estimated Blood Loss 5 / 5 Other: # Voids 2 Date of Last Bowel Movement 02/25/18 # Bowel Movements 0 0 Results Procedures completed during hospitalization: I&D of facial abscess 02/24 02/28 repeat incision and drainage of facial abscess with Dr. Pickens Labs on day of discharge: Labs from last 24 hours 03/01/18 02/28/18 02/28/18 08:33 20:49 18:33 Potassium POC Glucose 93 135 H 138 H Calcium 02/28/18 02/28/18 02/28/18 17:17 16:38 16:05 Potassium POC Glucose 85 77 69 Calcium 02/28/18 02/28/18 02/28/18 11:11 11:11 10:55 Potassium 3.4 L POC Glucose 98 Calcium Cancelled 02/28/18 09:01 Potassium POC Glucose 70 Calcium - Impressions ITS Impressions Soft Tissue Neck CT 02/23/18 19:26 CONCLUSION: 1. Prominent area of induration with areas of low density mass seen in the anterior inferior right face at the level the mandible consistent with infection /inflammatory change. A well-formed abscess is not seen at this point. There is associated adenopathy. 2. Small separate focal area of skin thickening or skin lesion at the more posterior superior right side of the face adjacent to the parotid gland. Discharge Plan - Discharge Disposition Patient Disposition: 01 Discharge Home - Discharge Condition Condition: Good - Discharge Order Discharge Orders: Discharge Order (Routine); Ordered 03/01/18 Ordered By: Rachna Bowling - Discharge Details Anticipated Discharge Date: 03/01/18 - Physicians Team Primary Care Provider: Shannan Garcia Attending Provider: Rachna Bowling Other Providers: Nelson Gaston MD ; Micaela Pickens MD ; [employer], Insurance
[2018-03-01] MEDS: Morphine Inj 4 MG/ML Vial IV.PUSH PRN (09:24)
[2018-03-01] MEDS: Calcium Acetate 667 MG Capsule PO SCH (09:32)
[2018-03-01] MEDS: amLODIPine 10 MG Tablet PO SCH (09:32)
[2018-03-01] MEDS: Insulin NovoLOG Aspart Correctional Sugar Inj SQ SCH ×2 (09:34→12:15)
[2018-03-01] MEDS: Heparin - SQ 10,000 UNITS/ML Vial SQ SCH (09:34)
[2018-03-01] MEDS: Senna/Docusate Sodium 8.6/50 MG Tablet PO SCH (11:12)
--- NOTE | 2018-03-01 15:06 | P.DCO ---
- Home Health Nursing Order: Wound care and dressing changes Instructions: Remove packing. Clean with normal saline. apply telfa and 4 x 4, cover with transparent dressing. Change dressings daily - Certification I have seen patient Summer Laguerre on 03/01/18. My clinical findings support the need for the requested home health care services because: Infection with risk of complications I certify that my clinical findings support that this patient is homebound because: Unsafe to leave home unassisted
== END 2018-03-01 12:33 ==
LOC: NEPC 17:30 → NEDA 17:30 → NEPGCP 22:00 → N04 02-26 18:01
PROVIDERS: ADMIT Family Medicine; ATTEND Family Medicine

== ENCOUNTER 2018-03-10 06:48 | Inpatient (IN) ==
--- NOTE | 2018-03-10 07:35 | ED ---
HPI General Chief Complaint: Shortness of Breath/Dyspnea Stated Complaint: Weakness Time Seen by Provider: 03/10/18 07:19 History of Present Illness This patient complains of shortness of breath and chest pain. It is located in the low central region. Described as an aching. Started last night. Duration 1 day. Severity is moderate. She went to dialysis this morning but when she told the dialysis nurse she was short of breath they called the ambulance to take her here. She skipped her dialysis on Saturday. She went last Saturday. She denies cough or fever. No injury. Her remaining leg is not swollen. No alleviating factors. Symptoms exacerbated by her noncompliance. Related Data Home Medications Medication Instructions Recorded Confirmed B complex-vitamin C-folic acid 1 tab PO DAILY 03/10/18 03/10/18 [Dialyvite] amlodipine 5 mg PO DAILY 03/10/18 03/10/18 carvedilol 25 mg PO BID 03/10/18 03/10/18 cholecalciferol (vitamin D3) 5,000 unit PO DAILY 03/10/18 03/10/18 [Vitamin D3] cinacalcet [Sensipar] 30 mg PO DAILY 03/10/18 03/10/18 docusate sodium [Colace] 100 mg PO BID 03/10/18 03/10/18 insulin glargine [Lantus U-100 28 units SUB-Q HS 03/10/18 03/10/18 Insulin] insulin lispro protamin-lispro 03/10/18 [Humalog Mix 50-50 Insuln U-100] lisinopril 20 mg PO BID 03/10/18 03/10/18 ondansetron 4 mg PO TID-QID PRN 03/10/18 03/10/18 oxycodone-acetaminophen 1 tab PO Q4-6H PRN 03/10/18 03/10/18 sertraline 100 mg PO DAILY 03/10/18 03/10/18 sevelamer HCl [Renagel] 1,600 mg PO AC 03/10/18 03/10/18 trazodone 50 mg PO HS 03/10/18 03/10/18 Allergies Allergy/AdvReac Type Severity Reaction Status Date / Time codeine Allergy Severe HYPERACTIVITY Verified 02/23/18 18:50 &ITCH iodine Allergy Severe Atrial Verified 02/23/18 18:50 Fibrillation potassium iodide Allergy Severe TOPICAL/ITC Verified 02/23/18 18:50 H povidone-iodine Allergy Severe TOPICAL/ITC Verified 02/23/18 18:50 H sodium iodide Allergy Severe TOPICAL/ITC Verified 02/23/18 18:50 H sodium iodide Allergy Severe TOPICAL/ITC Verified 02/23/18 18:50 H iohexol Allergy Intermediate HIVES Verified 02/23/18 18:50 penicillin G Allergy Unknown Anaphylaxis Verified 02/23/18 18:50 Pork/Porcine Containing Allergy Unknown Anaphylaxis Verified 02/23/18 18:50 Products Review of Systems Except as stated in HPI: all other systems reviewed are negative [facility], [facility] Medical History Medical History Hypertension (Acute) Renal failure (Acute) Dialysis patient (Acute) History of MRSA infection (Acute) History of Clostridium difficile infection (Acute) Infarction of spleen (Acute) Fistula (Acute) Surgical History Surgical History Amputated below knee (Acute) History of eye surgery (Acute) Hx of cholecystectomy (Acute) Social History Social History Substance History: Active Abuse Second Hand Smoke Exposure: Yes Smoking Status: Current every day smoker Tobacco Type: Cigars How Often Do You Have a Drink Containing Alcohol: Never Substance Abuse Detail Marijuana: Substance Use Status: Active Route Used Substance Abuse: Inhalation Substance Frequency: daily Immunization History Tetanus Immunization: Unsure Hx Influenza Vaccine This Season: No Exam Narrative Exam Narrative: GENERAL: Well-nourished, well-developed patient in no apparent distress. SKIN: Focused skin assessment reveals no rash and nodules. Skin is Warm and dry. HEAD: Atraumatic. Normocephalic. EYES: Pupils equal and round. No scleral icterus. No injection or drainage. ENT: No nasal bleeding or discharge. Mucous membranes pink and moist. NECK: Trachea midline. No JVD. CARDIOVASCULAR: Regular rate and rhythm. No murmur appreciated. RESPIRATORY: No accessory muscle use. Clear to auscultation. Breath sounds equal bilaterally. GASTROINTESTINAL: Abdomen soft, non-tender, nondistended. Hepatic and splenic margins not palpable. MUSCULOSKELETAL: Has right-sided BKA. No clubbing. No cyanosis. No edema. NEUROLOGICAL: Awake and alert. No obvious cranial nerve deficits. Motor grossly within normal limits. Normal speech. PSYCHIATRIC: Appropriate mood and affect; insight and judgment poor . She continues to smoke and is noncompliant with dialysis Course Initial Documented Vital Signs Respiratory Rate 20 03/10/18 06:52 Pulse Oximetry 100 03/10/18 06:52 Last Documented Vital Signs Temperature 98.1 F 03/10/18 07:00 Pulse Rate 64 03/10/18 09:19 Respiratory Rate 20 03/10/18 08:41 Blood Pressure 221/106 H 03/10/18 09:19 Pulse Oximetry 94 L 03/10/18 09:19 Critical Care Time Critical Care Time: Yes Total Critical Care Time: 80 Attestation: Aggregate critical care time was 80 minutes. Time to perform other separately billable procedures was not included in the critical care time. My time did not include minutes spent treating any other patients simultaneously or on activities that did not directly contribute to the patient's treatment. The services I provided to this patient were to treat and/or prevent clinically significant deterioration that could result in: Cardiopulmonary arrest, critical cardiac arrhythmia, myocardial injury I provided critical care services requiring my management, as noted below: Chart data review, documentation time, medication orders and management, vital sign assessments/reviewing monitor data, ordering and reviewing lab tests, ordering and interpreting/reviewing x-rays and diagnostic studies, care of the patient and discussion of the patient with the admitting physicians. Medical Decision Making MDM Narrative Medical decision making narrative: IV placed and labs sent. I reviewed her EKG which shows a sinus bradycardia. There is some prominent T waves with slight peaking. I have definitely concern for hyperkalemia so I am giving her 1 g IV calcium chloride while we await lab studies. I reviewed her chest x-ray which does not show any significant pulmonary edema. It is underinflated Saturations are 100% on her usual 2 L. Her lungs are clear. Patient started having significant ectopy problems. She became tachycardic with bigeminy. This alternates with bradycardia. Lab studies have come back with critical hyperkalemia of 8.8. Tetanus 13.26. CBC normal. I gave her emergent medications of an additional gram of calcium chloride and 2 A sodium bicarbonate and 8 units IV regular insulin I emergently called stiff straw hat washer and spoke with Dr. Gilbert. He is arranging emergent dialysis for this critical hyperkalemia in the setting of cardiac arrhythmia. I spoke with marketing and communications officer who will admit. Patient is currently getting emergent dialysis in the emergency department room as we could not wait for callbacks and room assignments. This was a truly emergent need for dialysis. Differential Diagnosis Differential Diagnosis: Pulmonary edema, bronchitis, pneumonia Medical Records Medical records reviewed: Yes I reviewed the patient's medical records. Reviewed her discharge summary from December 2017. This was her last hospitalization. Lab Data Result diagrams: 03/10/18 07:30 03/10/18 07:30 Lab Results 03/10/18 03/10/18 03/10/18 Range/Units 07:30 07:30 07:30 WBC 8.9 (4.0-11.0) th/mm3 RBC 3.93 L (4.00-5.30) mil/mm3 Hgb 12.2 (11.6-15.3) gm/dL Hct 36.9 (35.0-46.0) % MCV 93.9 (80.0-100.0) fL MCH 31.1 (27.0-34.0) pg MCHC 33.1 (32.0-36.0) % RDW 16.5 (11.6-17.2) % Plt Count 296 (150-450) th/mm3 MPV 8.3 (7.0-11.0) fL Neut % (Auto) 77.6 H (16.0-70.0) % Lymph % (Auto) 12.3 (9.0-44.0) % [place] % (Auto) 7.6 (0.0-8.0) % Eos % (Auto) 1.3 (0.0-4.0) % Baso % (Auto) 1.2 (0.0-2.0) % Neut # (Auto) 6.9 (1.8-7.7) th/mm3 Lymph # (Auto) 1.1 (1.0-4.8) th/mm3 [place] # (Auto) 0.7 (0.0-0.9) th/mm3 Eos # (Auto) 0.1 (0.0-0.4) th/mm3 Baso # (Auto) 0.1 (0.0-0.2) th/mm3 WBC Differential . Differential Comment Auto diff final Sodium 130 L (136-145) meq/L Potassium 8.8 H* (3.5-5.1) meq/L Chloride 99 (98-107) meq/L Carbon Dioxide 20.6 L (21.0-32.0) meq/L Anion Gap 10 (5-15) meq/L BUN 86 H (7-18) mg/dL Creatinine 13.26 H* (0.50-1.00) mg/dL Estimated GFR 3 L (>89) mL/min Random Glucose 257 H (74-106) mg/dL Calcium 9.2 (8.5-10.1) mg/dL Total Bilirubin 0.4 (0.2-1.0) mg/dL AST 28 (15-37) U/L ALT 30 (10-53) U/L Alkaline Phosphatase 164 H (45-117) U/L Total Creatine Kinase 53 (26-192) U/L Troponin I Less than 0.02 L (0.02-0.05) ng/mL Total Protein 8.6 H (6.4-8.2) g/dL Albumin 3.5 (3.4-5.0) g/dL Lipase (73-393) U/L 03/10/18 Range/Units 07:30 WBC (4.0-11.0) th/mm3 RBC (4.00-5.30) mil/mm3 Hgb (11.6-15.3) gm/dL Hct (35.0-46.0) % MCV (80.0-100.0) fL MCH (27.0-34.0) pg MCHC (32.0-36.0) % RDW (11.6-17.2) % Plt Count (150-450) th/mm3 MPV (7.0-11.0) fL Neut % (Auto) (16.0-70.0) % Lymph % (Auto) (9.0-44.0) % [place] % (Auto) (0.0-8.0) % Eos % (Auto) (0.0-4.0) % Baso % (Auto) (0.0-2.0) % Neut # (Auto) (1.8-7.7) th/mm3 Lymph # (Auto) (1.0-4.8) th/mm3 [place] # (Auto) (0.0-0.9) th/mm3 Eos # (Auto) (0.0-0.4) th/mm3 Baso # (Auto) (0.0-0.2) th/mm3 WBC Differential Differential Comment Sodium (136-145) meq/L Potassium (3.5-5.1) meq/L Chloride (98-107) meq/L Carbon Dioxide (21.0-32.0) meq/L Anion Gap (5-15) meq/L BUN (7-18) mg/dL Creatinine (0.50-1.00) mg/dL Estimated GFR (>89) mL/min Random Glucose (74-106) mg/dL Calcium (8.5-10.1) mg/dL Total Bilirubin (0.2-1.0) mg/dL AST (15-37) U/L ALT (10-53) U/L Alkaline Phosphatase (45-117) U/L Total Creatine Kinase (26-192) U/L Troponin I (0.02-0.05) ng/mL Total Protein (6.4-8.2) g/dL Albumin (3.4-5.0) g/dL Lipase 298 (73-393) U/L Imaging Data Radiologist's impression: Chest X-Ray 03/10/18 07:26 CONCLUSION: 1. Hypoaerated lungs. 2. Mild cardiomegaly. 3. Otherwise stable exam without evidence of consolidating airspace disease. Discharge Plan Discharge Disposition Patient Disposition: 30 Still Patient Discharge Condition Condition: Critical Discharge Details Diagnosis: Acute hyperkalemia, Bigeminal rhythm, ESRD (end stage renal disease) on dialysis Physicians Team ED Provider: Darryl Clifton Primary Care Provider: UNKNOWN, Attending Provider: Olayinka Angela Discharge Interventions Interventions: Vital Signs Last Done: 03/10/18 09:19 Status ED Status: Admitted Patient
[2018-03-10] MEDS ORDERED: Calcium Chloride Inj 1 GM/10 ML Syringe IV.PUSH ONE ×2 (07:37→08:34)
[2018-03-10 07:54] LABS: Baso # (Auto) 0.1 th/mm3 (0.0-0.2); Baso % (Auto) 1.2 % (0.0-2.0); Eos # (Auto) 0.1 th/mm3 (0.0-0.4); Eos % (Auto) 1.3 % (0.0-4.0); Hematocrit 36.9 % (35.0-46.0); Hemoglobin 12.2 gm/dL (11.6-15.3); Lymph # (Auto) 1.1 th/mm3 (1.0-4.8); Lymph % (Auto) 12.3 % (9.0-44.0); Mean Corpuscular HGB Conc 33.1 % (32.0-36.0); Mean Corpuscular Hemoglobin 31.1 pg (27.0-34.0); Mean Corpuscular Volume 93.9 fL (80.0-100.0); Mean Platelet Volume 8.3 fL (7.0-11.0); Mono # (Auto) 0.7 th/mm3 (0.0-0.9); Mono % (Auto) 7.6 % (0.0-8.0); Neut # (Auto) 6.9 th/mm3 (1.8-7.7); Neut % (Auto) 77.6 % (16.0-70.0); Platelet Count 296 th/mm3 (150-450); Red Blood Count 3.93 mil/mm3 (4.00-5.30); Red Cell Distribution Width 16.5 % (11.6-17.2); White Blood Count 8.9 th/mm3 (4.0-11.0)
[2018-03-10 08:23] LABS: Creatine Kinase 53 U/L (26-192)
--- NOTE | 2018-03-10 08:26 | XR ---
EXAM DATE: 03/10/2018 7:58 AM EDT AGE/SEX: 47 years / Female INDICATIONS: Weakness CLINICAL DATA: This is the patient's initial encounter. Patient reports that signs and symptoms have been present for 2 days and indicates a pain score of 8/10. MEDICAL/SURGICAL HISTORY: . Renal failure, chronic. Hypertension. . Cholecystectomy. Bilat eral BKA COMPARISON: [facility] [place], CHEST PA & LAT, 12/24/2017. . FINDINGS: The lungs are hypoaerated causing prominence of the interstitial vascular markings. Right basilar [place] characteristic of scarring is stable compared to prior study. There is no evidence of consolidating airspace disease or pulmonary edema. Heart remains mildly enlarged. CONCLUSION: 1. Hypoaerated lungs. 2. Mild cardiomegaly. 3. Otherwise stable exam without evidence of consolidating airspace disease. Electronically signed by: Jhonny Rodrigues MD 03/10/2018 8:25 AM EDT
[2018-03-10 08:29] LABS: Alanine Aminotransferase 30 U/L (10-53); Albumin 3.5 g/dL (3.4-5.0); Alkaline Phosphatase 164 U/L (45-117); Anion Gap 10 meq/L (5-15); Aspartate Aminotransferase 28 U/L (15-37); Blood Urea Nitrogen 86 mg/dL (7-18); Calcium 9.2 mg/dL (8.5-10.1); Carbon Dioxide 20.6 meq/L (21.0-32.0); Chloride 99 meq/L (98-107); Glomerular Filtration Rate 3 mL/min (>89); Glucose,Random 257 mg/dL (74-106); Sodium 130 meq/L (136-145); Total Protein 8.6 g/dL (6.4-8.2)
[2018-03-10 08:31] LABS: Potassium 8.8 meq/L (3.5-5.1)
[2018-03-10] MEDS ORDERED: Heparin 10,000 UNITS/10 ML Vial (for IV use) OTHER PRN ×2 (08:44)
[2018-03-10] MEDS ORDERED: Acetaminophen 325 MG Tablet PO PRN (08:44)
[2018-03-10] MEDS ORDERED: Sod Chloride 0.9% Inj 1,000 ML IV.CONT PRN (08:44)
[2018-03-10] MEDS ORDERED: Albumin Human 25% Inj 100 ML IV.SIG PRN (08:44)
[2018-03-10] MEDS ORDERED: Gelatin 12 MM/7 MM Topical Foam TOPICAL PRN (08:44)
[2018-03-10] MEDS ORDERED: Sod Chloride 0.9% Inj 1,000 ML OTHER PRN ×2 (08:44)
[2018-03-10] MEDS ORDERED: Bisacodyl 10 MG Supp RECTAL PRN (09:52)
[2018-03-10] MEDS ORDERED: hydrALAZINE HCl Inj 20 MG/ML Vial IV.PUSH PRN (10:43)
[2018-03-10] MEDS ORDERED: Dextrose 50% in Water 50 ML Vial IV.PUSH PRN (10:45)
--- NOTE | 2018-03-10 11:43 | MH ---
cc: Olayinka Angela MD DATE OF ADMISSION: 03/10/2018 HISTORY OF PRESENT ILLNESS: The patient is a 47-year-old female with a past medical history of end-stage renal disease on hemodialysis, hypertension, diabetes mellitus, and previous MRSA infections in the past, who initially went to dialysis center this morning to undergo hemodialysis; however, the patient felt short of breath. The ambulance was called and the patient was brought into [facility] ED for further evaluation and management of her symptoms. The patient states that she missed a hemodialysis session last Saturday. On arrival to the ED, she was hypertensive with a systolic blood pressure of 200 and her laboratory data significant for severe hyperkalemia with a potassium level of 8.8 and creatinine 13.26. The patient was also hyperglycemic with a blood sugar of 257. In the ED, she was given 8 units of regular IV insulin, 2 amps of calcium chloride, 2 amps of sodium bicarbonate for her hyperkalemia. In addition, Renal service was notified and the patient is currently receiving hemodialysis. When seen, she is on 2 liter oxygen with good saturation, hypertensive with a blood pressure 198/88 and a pulse of 72. She reports edema of her left lower extremity and some abdominal distention. The patient denies any cough or constitutional symptoms. A chest x-ray in the ER showed ____aerated lungs, mild cardiomegaly, no evidence of any consolidation or airspace disease. PAST MEDICAL HISTORY: Significant for hypertension, diabetes mellitus, end-stage renal disease, and history of MRSA infections. PAST SURGICAL HISTORY: Status post incision and drainage for a facial abscess on 02/28/2018. Previous right below-knee amputation, previous cholecystectomy, knee and back surgeries. SOCIAL HISTORY: The patient reports smoking cigars, nondrinker. ALLERGIES: PENICILLIN WITH SIDE EFFECT OF RASH, IODINE WITH SIDE EFFECT OF ITCHING AND CODEINE. FAMILY HISTORY: Noncontributing to present illness. MEDICATIONS AT HOME: Include Coreg, amlodipine, insulin, trazodone, Sensipar, Renagel. REVIEW OF SYSTEMS: As per HPI. Rest of review of systems unremarkable. PHYSICAL EXAMINATION: GENERAL: A 47-year-old female, lying in bed, in no acute respiratory distress. VITAL SIGNS: Temperature of 98.1, pulse of 72, blood pressure currently 198/88, saturation 97%. HEENT: Atraumatic, normocephalic. Pupils are equal, round, reactive to light and accommodation. Extraocular muscles intact. Conjunctivae pink. Nonicteric sclerae. Oral mucosa within normal. NECK: Supple. No JVD, adenopathy or thyromegaly. Trachea in the midline. CARDIOVASCULAR: Regular rate and rhythm. Normal S1, S2. No murmurs, rubs or gallops noted. PULMONARY: Bilateral equal air entry. No rales or wheezing. ABDOMEN: Soft, obese, nontender. No distention. Positive bowel sounds. EXTREMITIES: Right-sided below-knee amputation noted. No edema of the left lower extremity. NEUROLOGIC: Awake, alert. No focal sensory deficit. DIAGNOSTIC STUDIES: EKG showed a sinus bradycardia with some prominent T waves with slight peaking. IMAGING STUDIES: Chest x-ray showed no significant pulmonary edema, ____aerated. LABORATORY DATA: Sodium 130, potassium 8.8, chloride 99, CO2 of 20, BUN 86, creatinine 13.26, glucose 257. Troponin less than 0.02. WBC 8.9, hemoglobin 12, hematocrit 36, platelet count of 296. IMPRESSION: 1. Respiratory insufficiency. 2. End-stage renal disease. 3. Hyperkalemia. 4. Hypertension. 5. Diabetes mellitus. 6. Status post incision and drainage for a facial abscess on 02/28/2018. 7. History of methicillin-resistant Staphylococcus aureus infections. The patient had a wound culture positive for MRSA on 02/24/2018. RECOMMENDATIONS: 1. Monitor neuro status closely and avoid any sedatives. 2. Continue with oxygen to maintain sats above 92%. 3. Bronchodilators in the form of DuoNeb q.4 plus q.2 hours p.r.n. for shortness of breath. 4. Monitor heart rate and blood pressure closely and maintain MAP greater than 65 mmHg. Hold Coreg and Norvasc for now. We will place on hydralazine 50 mg q.8 hours and hydralazine 10 mg IV q.6 hours p.r.n. for systolic blood pressure greater than 160. 5. Monitor renal function, I's and O's and avoid nephrotoxins. The patient was treated for hyperkalemia ED with 8 units of IV regular insulin and calcium bicarbonate. In addition, she is currently receiving hemodialysis. We will repeat BMP post-dialysis. 6. Start renal/diabetic diet. 7. Monitor for signs of infections, which include fever and WBC. Bedoya culture if spikes a fever. 8. Place on sliding scale insulin with Accu-Cheks for glycemic control. 9. Monitor CBC. 10. Gastrointestinal prophylaxis with Protonix 40 mg daily and deep venous thrombosis prophylaxis with sequential compression devices to the left lower extremity and heparin subcutaneous. 11. Further recommendations will be based on hospital course. MD TERESA Miller/EDILMA , 10:59 AM , 11:14 AM
[2018-03-10] MEDS: WATER FOR INJ IV.SIG PRN (12:00)
[2018-03-10] MEDS: STERILE IV.SIG PRN (12:00)
[2018-03-10] MEDS: SODIUM THIOSULFATE IV.SIG PRN (12:00)
--- NOTE | 2018-03-10 12:55 | P.CONNP ---
History of Present Illness Service: Nephrology Consult date: 03/10/18 Requesting Physician: Darryl Clifton Reason for Consult: End-stage renal disease with severe hyperkalemia Primary Care Provider: UNKNOWN Chief Complaint: Shortness of breath History of Present Illness: Patient is a 47-year-old female with history of diabetes, right BKA, left peripheral vascular disease, calciphylaxis, ESRD who has missed her dialysis on Saturday came in with increasing shortness of breath chest pains and fatigue, patient on blood tests showed a potassium of 8.8 this was treated medically with calcium, D50, insulin, sodium bicarbonate. Patient then started on hemodialysis. She follows with Dr. Mason as outpatient and showed up to her dialysis center this morning but sent to the emergency as she was unstable. In the emergency she was noticed to have hyperkalemia with arrhythmia and treated as above currently on hemodialysis 1K bath. Review of Systems Constitutional: Reports lack of energy Eyes: Reports blurry vision Ears, Nose, Mouth, and Throat: Denies abnormal hearing, Denies bleeding gums, Denies bad breath, Denies change in voice, Denies dental pain, Denies difficulty swallowing, Denies dizziness, Denies dry mouth, Denies ear discharge , Denies ear pain, Denies facial pain, Denies headache(s), Denies hearing loss, Denies hoarseness, Denies lip swelling, Denies nosebleed, Denies mouth lesions, Denies mouth pain, Denies nasal congestion, Denies nasal discharge, Denies nasal obstruction, Denies nasal trauma, Denies neck lump, Denies neck pain, Denies nose pain, Denies pain with swallowing, Denies poor balance, Denies post nasal drip, Denies ringing in the ears, Denies sinus pain, Denies sinus pressure , Denies sore throat, Denies throat swelling, Denies tongue swelling, Denies other Cardiovascular: Reports chest pain, Reports shortness of breath, Reports shortness of breath with activity Respiratory: Reports shortness of breath Gastrointestinal: Reports heartburn Genitourinary: Reports other (On dialysis) Musculoskeletal: Reports back pain, Reports body aches, Reports joint pain Skin/Breast: Reports lesions Neurologic: Reports headache(s) Psychiatric: Reports behavioral changes, Reports change in appetite PMFSH - History History Provided By: Patient - Medical History Medical History: Medical History (Last Updated 03/10/18 @ 12:52 by Gerri Gilbert MD) Hypertension (Acute) Renal failure (Acute) Dialysis patient (Acute) History of MRSA infection (Acute) History of Clostridium difficile infection (Acute) Infarction of spleen (Acute) Fistula (Acute) Diabetes - Surgical History Surgical History: Surgical History (Last Reviewed 03/11/18 @ 10:10 by Ramses Cox) Amputated below knee (Acute) History of eye surgery (Acute) Hx of cholecystectomy (Acute) - Tobacco History Second Hand Smoke Exposure: Yes Tobacco Use In Past 30 Days: Yes (black and mild) Smoking Status: Current every day smoker Tobacco Type: Cigars - Alcohol History How Often Do You Have a Drink Containing Alcohol: Never - Substance Use History Substance History: Active Abuse - Substance Use Type Marijuana Status: Active Route Used: Inhalation Frequency: daily - Immunization History Tetanus Immunization: Unsure Hx Influenza Vaccine This Season: No Medications and Allergies Active Medications: Active Medications Acetaminophen (Tylenol) 650 mg PO UNSCH PRN PRN Reason: SEE LABEL COMMENTS Al Hydroxide/Mg Hydroxide (Milk Of Wilbur Patton) 30 ml PO Q12H PRN PRN Reason: Mild Constipation Albuterol (Duoneb Neb (Jen)) 1 ampul NEB Q6HR NEB JEN Last Admin: 03/10/18 12:37 Dose: 1 ampul Bisacodyl (Dulcolax Supp) 10 mg RECTAL DAILY PRN PRN Reason: SEVERE CONSITIPATION Chlorhexidine Gluconate (Chlorhexidine 2% Cloth) 3 pack TOPICAL DAILY@0400 JEN Stop: 03/16/18 03:59 Chlorhexidine Gluconate (Chlorhexidine 2% Cloth) 3 pack TOPICAL DAILY@0400 PRN PRN Reason: Extra cloth needed Stop: 03/16/18 03:59 Clonidine HCl (Catapres) 0.1 mg PO UNSCH PRN PRN Reason: SEE LABEL COMMENTS Dextrose (D50w Vial) 50 ml IV.PUSH UNSCH PRN PRN Reason: PER HYPOGLYCEMIA PROTOCOL Diphenhydramine HCl (Benadryl) 25 mg PO UNSCH PRN PRN Reason: SEE LABEL COMMENTS Epoetin Duncan (Epogen Inj) 4,000 unit IV.PUSH UNSCH PRN PRN Reason: SEE LABEL COMMENTS Gelatin (Gelfoam 12 Mm/7 Mm Topical) 1 foam TOPICAL PRN PRN PRN Reason: help stop bleeding from site Gentamicin Sulfate (Gentamicin Inj) 20 mg OTHER WITH DIALYSIS PRN PRN Reason: Dwell Gentamycin Lock Glucagon (Glucagon Inj) 1 mg OTHER PRN PRN PRN Reason: for Hypoglycemia Protocol Heparin Sodium (Porcine) (Heparin Inj) 8,000 units OTHER WITH DIALYSIS PRN PRN Reason: for machine prime Heparin Sodium (Porcine) (Heparin Inj) 1,000 units OTHER WITH DIALYSIS PRN PRN Reason: Dwell Heparin to Fill Catheter Hydralazine HCl (Apresoline) 50 mg PO TID JEN Hydralazine HCl (Apresoline Inj) 10 mg IV.PUSH Q6H PRN PRN Reason: BLOOD PRESSURE MANAGEMENT Albumin Human (Flexbumin 25% Inj) 100 mls @ 60 mls/hr IV.SIG WITH DIALYSIS PRN PRN Reason: hypotension / volume replace Sodium Chloride (Ns Inj) 1,000 mls @ 200 mls/hr OTHER .Q5H PRN PRN Reason: for dialyzer flush PRN Sodium Chloride (Ns Inj) 1,000 mls @ 0 mls/hr IV.CONT .Q0M PRN PRN Reason: hypotension / volume replace Sodium Chloride (Ns Inj) 1,000 mls @ 0 mls/hr OTHER .Q0M PRN PRN Reason: for prime and rinse back Sodium Thiosulfate 25,000 mg/ (Sterile Water) 200 mls @ 150 mls/hr IV.SIG WITH DIALYSIS PRN PRN Reason: calciphylaxis Insulin Aspart (Novolog Insulin Correctional Sugar Inj) 0 unit SQ Q6HR JEN; Protocol Lactulose (Lactulose Liq) 30 ml PO DAILY PRN PRN Reason: SEVERE CONSITIPATION Mannitol (Mannitol Inj) 12.5 gm IV.PUSH UNSCH PRN PRN Reason: hypotension / volume replace Nitroglycerin (Nitrostat Sl) 0.4 mg SL Q5M PRN PRN Reason: CHEST PAIN Ondansetron HCl (Zofran Inj) 4 mg IV.PUSH UNSCH PRN PRN Reason: NAUSEA OR VOMITING Senna/Docusate Sodium (Areli-Colace) 1 tab PO BID JEN Sennosides (Senokot) 17.2 mg PO Q12H PRN PRN Reason: Moderate Constipation Sodium Chloride (Ns Flush) 5 ml IV.FLUSH PRN PRN PRN Reason: flush each lumen during HD Allergies Allergy/AdvReac Type Severity Reaction Status Date / Time codeine Allergy Severe HYPERACTIVITY Verified 02/23/18 18:50 &ITCH iodine Allergy Severe Atrial Verified 02/23/18 18:50 Fibrillation potassium iodide Allergy Severe TOPICAL/ITC Verified 02/23/18 18:50 H povidone-iodine Allergy Severe TOPICAL/ITC Verified 02/23/18 18:50 H sodium iodide Allergy Severe TOPICAL/ITC Verified 02/23/18 18:50 H sodium iodide Allergy Severe TOPICAL/ITC Verified 02/23/18 18:50 H iohexol Allergy Intermediate HIVES Verified 02/23/18 18:50 penicillin G Allergy Unknown Anaphylaxis Verified 02/23/18 18:50 Pork/Porcine Containing Allergy Unknown Anaphylaxis Verified 02/23/18 18:50 Products Home Medications Medication Instructions Recorded Confirmed Type B complex-vitamin C-folic acid 1 tab PO DAILY 03/10/18 03/10/18 History [Dialyvite] amlodipine 5 mg PO DAILY 03/10/18 03/10/18 History carvedilol 25 mg PO BID 03/10/18 03/10/18 History cholecalciferol (vitamin D3) 5,000 unit PO DAILY 03/10/18 03/10/18 History [Vitamin D3] cinacalcet [Sensipar] 30 mg PO DAILY 03/10/18 03/10/18 History docusate sodium [Colace] 100 mg PO BID 03/10/18 03/10/18 History insulin glargine [Lantus U-100 28 units SUB-Q HS 03/10/18 03/10/18 History Insulin] insulin lispro protamin-lispro 03/10/18 History [Humalog Mix 50-50 Insuln U-100] lisinopril 20 mg PO BID 03/10/18 03/10/18 History ondansetron 4 mg PO TID-QID PRN 03/10/18 03/10/18 History oxycodone-acetaminophen 1 tab PO Q4-6H PRN 03/10/18 03/10/18 History sertraline 100 mg PO DAILY 03/10/18 03/10/18 History sevelamer HCl [Renagel] 1,600 mg PO AC 03/10/18 03/10/18 History trazodone 50 mg PO HS 03/10/18 03/10/18 History Exam Vital signs: Vital Signs 03/10/18 06:52 03/10/18 07:00 03/10/18 07:15 Temperature 98.1 F Pulse Rate Respiratory Rate 20 Blood Pressure 142/65 H Pulse Oximetry 100 03/10/18 07:30 03/10/18 08:41 03/10/18 09:19 Temperature Pulse Rate 62 64 64 Respiratory Rate 20 Blood Pressure 219/80 H 221/106 H Pulse Oximetry 98 94 L 03/10/18 10:00 03/10/18 11:00 03/10/18 12:36 Temperature Pulse Rate 68 72 79 Respiratory Rate 19 20 18 Blood Pressure 198/88 H 167/79 H Pulse Oximetry 93 L Intake & Output 03/09/18 03/10/18 03/10/18 18:59 06:59 18:59 Weight 100 kg - Constitutional mild distress, obese - Routine HEENT Exam Head: Present: normocephalic Eye: Present: EOMI, PERRL - Routine Neck Exam Present: supple - Routine Respiratory Exam Present: accessory muscle use, patient mechanically ventilated - Routine Cardiovascular Exam Present: RRR - Routine Abdominal Exam Present: soft, normoactive bowel sounds - Routine Extremities Exam Present: edema, amputation (Right) - Routine Neurological Exam Present: alert Results - Lab Results 03/11/18 03:36 03/11/18 03:36 Most recent lab results Calcium 9.2 mg/dL (8.5-10.1) 03/10/18 07:30 Assessment and Plan - Assessment (1) ESRD (end stage renal disease) on dialysis Code(s): N18.6 - End stage renal disease; Z99.2 - Dependence on renal dialysis Status: Acute (2) Acute hyperkalemia Code(s): E87.5 - Hyperkalemia Status: Acute (3) DM (diabetes mellitus) Code(s): E11.9 - Type 2 diabetes mellitus without complications Status: Chronic (4) Hypertension Code(s): I10 - Essential (primary) hypertension Status: Acute - Plan I have seen during hemodialysis 6 L of planned on 1K bath, continue to follow her progress she is told not to miss her dialysis and cut back on potassium intake Continue to monitor her progress while in the hospital, Hemodialysis on Saturday and Saturday Monitor BMP Educated her about diet low in potassium. (3) DM (diabetes mellitus) Qualifiers: Diabetes mellitus type: type 2 Diabetes mellitus penitentiary insulin use: without penitentiary use Diabetes mellitus complication status: with skin complications Diabetes mellitus complication detail: with other skin complication Qualified Code(s): E11.628 - Type 2 diabetes mellitus with other skin complications
[2018-03-10] MEDS: hydrALAZINE 50 MG Tablet PO SCH ×2 (13:10→17:35)
[2018-03-10 15:49] LABS: Calcium 9.2 mg/dL (8.5-10.1); Carbon Dioxide 30.4 meq/L (21.0-32.0); Potassium 4.4 meq/L (3.5-5.1)
[2018-03-10] MEDS: Insulin NovoLOG Aspart Correctional Sugar Inj SQ SCH ×2 (17:40→18:07)
--- NOTE | 2018-03-10 21:52 | ECG ---
Date Performed: 03/10/2018 Time Performed: 07:03:41 PTAGE: 47 years EKG: SINUS BRADYCARDIA WITH FIRST DEGREE AV BLOCK WITH OCCASIONAL SUPRAVENTRICULAR PREMATURE COM PLEXES IN A BIGEMINAL PATTERN BORDERLINE RIGHT AXIS DEVIATION ABNORMAL ECG NO PREVIOUS TRACING DOCTOR: Ken Turk Interpretating Date/Time 03/10/2018 21:51:40
[2018-03-10] MEDS: Senna/Docusate Sodium 8.6/50 MG Tablet PO SCH (22:07)
[2018-03-10 22:49] LABS: Calcium 9.1 mg/dL (8.5-10.1); Carbon Dioxide 28.3 meq/L (21.0-32.0); Potassium 5.4 meq/L (3.5-5.1)
[2018-03-10] MEDS ORDERED: Sodium Polystyrene Sulfonate/Sorbitol Liq 15 GM/60 ML UDC PO ONE (23:27)
[2018-03-11] MEDS: Insulin NovoLOG Aspart Correctional Sugar Inj SQ SCH ×4 (00:12→17:21)
[2018-03-11] MEDS ORDERED: Chlorhexidine Gluconate 2% 1 Pack (2 Cloths) TOPICAL PRN (04:00)
[2018-03-11 04:44] LABS: Baso # (Auto) 0.1 th/mm3 (0.0-0.2); Baso % (Auto) 1.4 % (0.0-2.0); Eos # (Auto) 0.2 th/mm3 (0.0-0.4); Eos % (Auto) 3.2 % (0.0-4.0); Hematocrit 30.2 % (35.0-46.0); Lymph # (Auto) 1.1 th/mm3 (1.0-4.8); Lymph % (Auto) 14.2 % (9.0-44.0); Mean Corpuscular Volume 90.9 fL (80.0-100.0); Mono # (Auto) 0.6 th/mm3 (0.0-0.9); Mono % (Auto) 8.5 % (0.0-8.0); Neut # (Auto) 5.4 th/mm3 (1.8-7.7); Neut % (Auto) 72.7 % (16.0-70.0); Platelet Count 300 th/mm3 (150-450); Red Blood Count 3.32 mil/mm3 (4.00-5.30); White Blood Count 7.4 th/mm3 (4.0-11.0)
[2018-03-11 05:04] LABS: Alanine Aminotransferase 23 U/L (10-53); Albumin 3.1 g/dL (3.4-5.0); Anion Gap 11 meq/L (5-15); Aspartate Aminotransferase 15 U/L (15-37); Blood Urea Nitrogen 48 mg/dL (7-18); Calcium 8.7 mg/dL (8.5-10.1); Carbon Dioxide 28.8 meq/L (21.0-32.0); Chloride 96 meq/L (98-107); Glomerular Filtration Rate 5 mL/min (>89); Glucose,Random 96 mg/dL (74-106); Potassium 5.3 meq/L (3.5-5.1); Sodium 136 meq/L (136-145)
[2018-03-11 05:06] LABS: Alkaline Phosphatase 132 U/L (45-117); Total Protein 8.1 g/dL (6.4-8.2)
[2018-03-11] MEDS: Chlorhexidine Gluconate 2% 1 Pack (2 Cloths) TOPICAL SCH (05:52)
--- NOTE | 2018-03-11 09:00 | P.PNCC ---
Subjective Subjective Remarks/Hospital Course: The patient is a 47-year-old female with a past medical history of end-stage renal disease on hemodialysis, hypertension, diabetes mellitus, and previous MRSA infections in the past,who initially went to dialysis center this morning to undergo hemodialysis; however, the patient felt short of breath. The ambulance was called and the patient was brought into [facility] ED for further evaluation and management of her symptoms. The patient states that she missed a hemodialysis session last Saturday. On arrival to the ED, she was hypertensive with a systolic blood pressure of 200 and her laboratory data significant for severe hyperkalemia with a potassium level of 8.8 and creatinine 13.26. The patient was also hyperglycemic with a blood sugar of 257. In the ED, she was given 8 units of regular IV insulin, 2 amps of calcium chloride, 2 amps of sodium bicarbonate for her hyperkalemia. In addition, Renal service was notified and the patient is currently receiving hemodialysis. When seen, she is on 2 liter oxygen with good saturation, hypertensive with a blood pressure 198/88 and a pulse of 72. She reports edema of her left lower extremity and some abdominal distention. The patient denies any cough or constitutional symptoms. A chest x-ray in the ER showed ____aerated lungs, mild cardiomegaly, no evidence of any consolidation or airspace disease. SUBJECTIVE: 03/11: Currently hemodynamically stable. Potassium in the low fives. Patient feels much better at the present time. Mobility much improved. Hypertensive will resume amlodipine and carvedilol. Holding JOSE inhibitor secondary to hyperkalemia. Objective Vital Signs / I&O: Vital Signs 03/10/18 09:19 03/10/18 10:00 03/10/18 11:00 Temperature Pulse Rate 64 68 72 Respiratory Rate 19 20 Blood Pressure 221/106 H 198/88 H 167/79 H Pulse Oximetry 94 L 93 L 03/10/18 12:36 03/10/18 13:46 03/10/18 14:32 Temperature 97.8 F Pulse Rate 79 77 73 Respiratory Rate 18 19 25 H Blood Pressure 180/79 H 177/81 H Pulse Oximetry 97 03/10/18 14:35 03/10/18 15:44 03/10/18 20:00 Temperature 97.6 F 98.9 F Pulse Rate 69 68 Respiratory Rate 22 16 Blood Pressure 157/70 H 115/54 L Pulse Oximetry 96 99 03/10/18 21:22 03/11/18 00:00 03/11/18 03:18 Temperature Pulse Rate 69 75 73 Respiratory Rate 18 14 18 Blood Pressure 113/56 L Pulse Oximetry 96 03/11/18 04:00 03/11/18 05:56 03/11/18 06:00 Temperature 99.4 F Pulse Rate 72 73 Respiratory Rate 15 16 Blood Pressure 127/52 L Pulse Oximetry 98 03/11/18 07:00 03/11/18 07:01 03/11/18 07:56 Temperature Pulse Rate 73 71 69 Respiratory Rate 16 15 18 Blood Pressure 171/76 H Pulse Oximetry 100 99 98 03/11/18 08:00 03/11/18 08:01 Temperature 98.3 F Pulse Rate 80 68 Respiratory Rate 12 17 Blood Pressure 156/63 H Pulse Oximetry 100 100 Intake & Output 03/10/18 03/11/18 03/11/18 18:59 06:59 18:59 Intake Total 1000 / 1000 Output Total 14719 / 49790 0 / 0 Balance -68627 / -41479 1000 / 1000 Weight 97.9 kg 101.1 kg Intake: Oral 1000 / 1000 Output: Urine 0 / 0 Hemodialysis Amount 68376 / 29376 Other: # Voids 0 Date of Last Bowel Movement 03/10/18 03/11/18 03/11/18 # Bowel Movements 0 Result Diagrams: 03/11/18 03:36 03/11/18 03:36 Imaging: Chest X-Ray 03/10/18 07:26 CONCLUSION: 1. Hypoaerated lungs. 2. Mild cardiomegaly. 3. Otherwise stable exam without evidence of consolidating airspace disease. Objective Remarks: GENERAL: 47-year-old female resting in bed in no acute distress SKIN: Warm and dry. HEAD: Atraumatic. Normocephalic. EYES: Pupils equal and round. No scleral icterus. No injection or drainage. ENT: No nasal bleeding or discharge. Mucous membranes pink and moist. NECK: Trachea midline. No JVD. CARDIOVASCULAR: Regular rate and rhythm. S1, S2 no S4. Without murmur RESPIRATORY: No accessory muscle use. Clear to auscultation. Breath sounds equal bilaterally. GASTROINTESTINAL: Abdomen soft, non-tender, nondistended. Hepatic and splenic margins not palpable. MUSCULOSKELETAL: Extremities include right below the knee dictation. Prior skin changes to left lower extremity foot. AV fistula in right upper extremity positive thrill NEUROLOGICAL: Awake and alert. No obvious cranial nerve deficits. Motor grossly within normal limits. Five out of 5 muscle strength in the arms and legs. Normal speech. PSYCHIATRIC: Appropriate mood and affect; insight and judgment normal. Assessment and Plan - Assessment and Plan Plan: 1. Respiratory insufficiency. 2. End-stage renal disease. 3. Hyperkalemia. 4. Hypertension. 5. Diabetes mellitus. 6. Status post incision and drainage for a facial abscess on 02/28/2018. 7. History of methicillin-resistant Staphylococcus aureus infections. The patient had a wound culture positive for MRSA on 02/24/2018. 8. Secondary hyperparathyroidism 9. Major depressive disorder NOS 10. Vitamin D deficiency 11. Normocytic anemia 12. Hypoalbuminemia Neuro/Psych: Acetaminophen 650 p.o. every 6 hours as needed fever Continue sertraline 100 mg daily for depression CV: Resume amlodipine 5 mg daily and carvedilol 25 mg twice daily for hypertension. Holding lisinopril 20 mg twice daily in light of hyperkalemia. Resume when clinically indicated As needed Nitropaste 2 inches every 6 hours as needed and hydralazine schedule 50 mg 3 times daily and clonidine 0.1 mg every 6 hours as needed will be ordered Resp: Nasal cannula for saturations greater than equal to 92% Incentive spirometry while awake Albuterol/ipratropium aerosols every 6 hours with albuterol aerosols every 2 hours as needed for dyspnea GI: ADA/renal diet Pantoprazole for GI prophylaxis Docusate sodium/senna 1 tablet twice daily for bowel regimen : No indication for Anderson catheter Endo: Holding insulin glargine 20 units at night. Patient states she usually does not require this during auscultation will need sliding scale insulin only. Continue cinacalcet 30 mg daily Renal: Dialysis per Dr. Gilbert. Heme: Hemoglobin stable. No indication for transfusion of blood products at this time. ID: Monitor for signs and symptomatology infection MSK: PT evaluate and treat Continue cholecalciferol 5000 units daily FEN: Hemodialysis per nephrology. Continue sevelamer 1600 mg 3 times daily Level 2 follow-up periods stable from critical care medicine standpoint. Assign care to [facility] in AM 8/.
[2018-03-11] MEDS ORDERED: Carvedilol 12.5 MG Tablet PO ONE (09:03)
[2018-03-11] MEDS: hydrALAZINE 50 MG Tablet PO SCH ×3 (09:14→17:20)
[2018-03-11] MEDS: Docusate Sodium 100 MG Capsule PO SCH ×2 (09:15→20:29)
[2018-03-11] MEDS: Senna/Docusate Sodium 8.6/50 MG Tablet PO SCH ×2 (09:15→20:29)
[2018-03-11] MEDS: Vitamin B Complex/Vit C/Folic Tablet PO SCH (09:20)
[2018-03-11] MEDS: amLODIPine 5 MG Tablet PO SCH (09:20)
[2018-03-11] MEDS: Sertraline 100 MG Tablet PO SCH (09:20)
[2018-03-11] MEDS: Mupirocin 2% Nasal Oint Topical Syringe EACH NARE SCH ×3 (14:41→20:32)
--- NOTE | 2018-03-11 17:34 | P.PNNP ---
Subjective Interval history: Had dialysis yesterday patient feels better Physical Exam Vital signs: Vital Signs 03/10/18 20:00 03/10/18 21:22 03/11/18 00:00 Temperature 98.9 F Pulse Rate 68 69 75 Respiratory Rate 16 18 14 Blood Pressure 115/54 L 113/56 L Pulse Oximetry 96 03/11/18 03:18 03/11/18 04:00 03/11/18 05:56 Temperature 99.4 F Pulse Rate 73 72 Respiratory Rate 18 15 Blood Pressure 127/52 L Pulse Oximetry 03/11/18 06:00 03/11/18 07:00 03/11/18 07:01 Temperature Pulse Rate 73 73 71 Respiratory Rate 16 16 15 Blood Pressure 171/76 H Pulse Oximetry 98 100 99 03/11/18 07:56 03/11/18 08:00 03/11/18 08:01 Temperature 98.3 F Pulse Rate 69 80 68 Respiratory Rate 18 12 17 Blood Pressure 156/63 H Pulse Oximetry 98 98 100 03/11/18 09:00 03/11/18 09:01 03/11/18 09:12 Temperature Pulse Rate 69 72 75 Respiratory Rate 22 35 H 40 H Blood Pressure 145/120 H 158/67 H Pulse Oximetry 97 98 100 03/11/18 10:00 03/11/18 11:00 03/11/18 12:00 Temperature 98.0 F Pulse Rate 77 74 71 Respiratory Rate 21 29 H 16 Blood Pressure Pulse Oximetry 95 95 98 03/11/18 13:00 03/11/18 13:43 03/11/18 14:00 Temperature Pulse Rate 69 71 78 Respiratory Rate 11 L 26 H 14 Blood Pressure 171/79 H 187/78 H Pulse Oximetry 99 99 98 03/11/18 14:38 03/11/18 15:00 03/11/18 15:19 Temperature Pulse Rate 75 74 77 Respiratory Rate 19 17 18 Blood Pressure 130/56 L 121/56 L Pulse Oximetry 98 97 03/11/18 16:00 03/11/18 16:01 Temperature 99.0 F Pulse Rate 72 72 Respiratory Rate 22 22 Blood Pressure 105/51 L Pulse Oximetry 99 99 Intake & Output 03/10/18 03/11/18 03/11/18 18:59 06:59 18:59 Intake Total 1000 / 1000 Output Total 14627 / 29563 0 / 0 Balance -61467 / -09986 1000 / 1000 Weight 97.9 kg 101.1 kg Intake: Oral 1000 / 1000 Output: Urine 0 / 0 Hemodialysis Amount 04193 / 10784 Other: # Voids 0 Date of Last Bowel Movement 03/10/18 03/11/18 03/11/18 # Bowel Movements 0 - Constitutional no acute distress - Routine HEENT Exam Head: Present: normocephalic Eye: Present: EOMI - Routine Neck Exam Present: supple - Routine Respiratory Exam Present: CTA bilaterally - Routine Cardiovascular Exam Present: RRR - Routine Abdominal Exam Present: soft - Routine Skin Exam Present: mottling - Routine Neurological Exam Present: alert - Routine Psychiatric Exam Present: normal affect Assessment and Plan - Assessment (1) ESRD (end stage renal disease) on dialysis Code(s): N18.6 - End stage renal disease; Z99.2 - Dependence on renal dialysis Status: Acute (2) Acute hyperkalemia Code(s): E87.5 - Hyperkalemia Status: Acute (3) DM (diabetes mellitus) Code(s): E11.9 - Type 2 diabetes mellitus without complications Status: Chronic Qualifiers: Diabetes mellitus type: type 2 Diabetes mellitus [facility] insulin use: without terminal gauger supervisor use Diabetes mellitus complication status: with skin complications Diabetes mellitus complication detail: with other skin complication Qualified Code(s): E11.628 - Type 2 diabetes mellitus with other skin complications (4) Hypertension Code(s): I10 - Essential (primary) hypertension Status: Acute - Plan Patient is doing better potassium is 5.3 Hemodialysis on Saturday and Saturday Monitor BMP Educated her about diet low in potassium.
[2018-03-11] MEDS: traZODone 50 MG Tablet PO SCH (20:26)
[2018-03-11] MEDS: Carvedilol 12.5 MG Tablet PO SCH (20:28)
[2018-03-11] MEDS ORDERED: LORazepam 0.5 MG Tablet PO ONE (21:21)
[2018-03-12] MEDS: Insulin NovoLOG Aspart Correctional Sugar Inj SQ SCH ×3 (00:05→18:41)
[2018-03-12] MEDS: Chlorhexidine Gluconate 2% 1 Pack (2 Cloths) TOPICAL SCH (04:00)
[2018-03-12 07:17] LABS: Baso # (Auto) 0.1 th/mm3 (0.0-0.2); Baso % (Auto) 1.3 % (0.0-2.0); Eos # (Auto) 0.3 th/mm3 (0.0-0.4); Eos % (Auto) 4.2 % (0.0-4.0); Hematocrit 28.5 % (35.0-46.0); Hemoglobin 9.3 gm/dL (11.6-15.3); Lymph # (Auto) 1.1 th/mm3 (1.0-4.8); Lymph % (Auto) 17.8 % (9.0-44.0); Mean Corpuscular HGB Conc 32.7 % (32.0-36.0); Mean Platelet Volume 7.7 fL (7.0-11.0); Mono # (Auto) 0.6 th/mm3 (0.0-0.9); Mono % (Auto) 9.4 % (0.0-8.0); Neut # (Auto) 4.1 th/mm3 (1.8-7.7); Neut % (Auto) 67.3 % (16.0-70.0); Platelet Count 289 th/mm3 (150-450); Red Cell Distribution Width 15.7 % (11.6-17.2); White Blood Count 6.1 th/mm3 (4.0-11.0)
[2018-03-12 07:52] LABS: Alanine Aminotransferase 18 U/L (10-53); Albumin 2.9 g/dL (3.4-5.0); Alkaline Phosphatase 121 U/L (45-117); Anion Gap 12 meq/L (5-15); Aspartate Aminotransferase 11 U/L (15-37); Blood Urea Nitrogen 65 mg/dL (7-18); Calcium 8.3 mg/dL (8.5-10.1); Carbon Dioxide 27.3 meq/L (21.0-32.0); Chloride 92 meq/L (98-107); Glomerular Filtration Rate 4 mL/min (>89); Glucose,Random 104 mg/dL (74-106); Magnesium 2.2 mg/dL (1.5-2.5); Phosphorus 6.4 mg/dL (2.5-4.9); Sodium 131 meq/L (136-145); Total Protein 7.5 g/dL (6.4-8.2)
[2018-03-12] MEDS: Sertraline 100 MG Tablet PO SCH (08:41)
[2018-03-12] MEDS: Pantoprazole Sodium 20 MG DR Tablet PO SCH (08:41)
[2018-03-12] MEDS: Vitamin B Complex/Vit C/Folic Tablet PO SCH (08:41)
[2018-03-12] MEDS: hydrALAZINE 50 MG Tablet PO SCH ×3 (08:41→17:54)
[2018-03-12] MEDS: Carvedilol 12.5 MG Tablet PO SCH ×2 (08:41→20:49)
[2018-03-12] MEDS: amLODIPine 5 MG Tablet PO SCH (08:41)
[2018-03-12] MEDS: Senna/Docusate Sodium 8.6/50 MG Tablet PO SCH ×2 (08:42→20:50)
[2018-03-12] MEDS: Docusate Sodium 100 MG Capsule PO SCH ×2 (08:42→20:49)
[2018-03-12] MEDS: Mupirocin 2% Nasal Oint Topical Syringe EACH NARE SCH ×2 (08:42→20:49)
[2018-03-12] MEDS ORDERED: ALPRAZolam 0.25 MG Tablet PO PRN (10:11)
--- NOTE | 2018-03-12 10:23 | P.PN ---
Subjective Interval history: 47-year-old female admitted for shortness of breath, fluid overload due to to missed dialysis treatments. She admits that the reason she skipped 2 treatments was due to general discouragement with the overall routine of dialysis. She has good insight that this is what caused her fluid overload and at this point regrets her decision. Physical Exam Vital signs: Vital Signs 03/11/18 11:00 03/11/18 12:00 03/11/18 13:00 Temperature 98.0 F Pulse Rate 74 71 69 Respiratory Rate 29 H 16 11 L Blood Pressure Pulse Oximetry 95 98 99 03/11/18 13:43 03/11/18 14:00 03/11/18 14:38 Temperature Pulse Rate 71 78 75 Respiratory Rate 26 H 14 19 Blood Pressure 171/79 H 187/78 H 130/56 L Pulse Oximetry 99 98 98 03/11/18 15:00 03/11/18 15:19 03/11/18 16:00 Temperature Pulse Rate 74 77 72 Respiratory Rate 17 18 22 Blood Pressure 121/56 L Pulse Oximetry 97 99 03/11/18 16:01 03/11/18 17:00 03/11/18 18:00 Temperature 99.0 F Pulse Rate 72 72 73 Respiratory Rate 22 19 10 L Blood Pressure 105/51 L 107/52 L 117/75 Pulse Oximetry 99 96 99 03/11/18 19:00 03/11/18 20:00 03/11/18 20:02 Temperature 98.5 F Pulse Rate 77 78 76 Respiratory Rate 21 20 18 Blood Pressure 114/55 L 167/103 H 172/101 H Pulse Oximetry 98 95 98 03/11/18 20:21 03/11/18 21:00 03/11/18 21:22 Temperature Pulse Rate 79 76 74 Respiratory Rate 19 46 H 16 Blood Pressure 172/81 H 181/72 H Pulse Oximetry 97 99 100 03/11/18 22:00 03/11/18 23:00 03/11/18 23:28 Temperature Pulse Rate 71 71 66 Respiratory Rate 23 12 18 Blood Pressure 158/65 H 145/63 H Pulse Oximetry 99 99 99 03/12/18 00:00 03/12/18 01:00 03/12/18 02:00 Temperature 98.6 F Pulse Rate 68 66 63 Respiratory Rate 21 17 22 Blood Pressure 157/72 H 121/56 L 123/57 L Pulse Oximetry 99 94 L 91 L 03/12/18 03:00 03/12/18 04:00 03/12/18 05:00 Temperature 98.4 F Pulse Rate 62 60 60 Respiratory Rate 22 17 44 H Blood Pressure 127/59 L 139/61 134/60 Pulse Oximetry 93 L 95 93 L 03/12/18 06:00 03/12/18 07:00 03/12/18 08:00 Temperature 98.5 F Pulse Rate 63 65 61 Respiratory Rate 20 25 H 20 Blood Pressure 140/63 126/58 L 134/60 Pulse Oximetry 92 L 93 L 99 03/12/18 09:00 03/12/18 09:25 03/12/18 10:00 Temperature Pulse Rate 71 69 70 Respiratory Rate 25 H 14 29 H Blood Pressure 207/81 H 167/67 H 152/62 H Pulse Oximetry 95 99 96 Intake & Output 03/11/18 03/12/18 03/12/18 18:59 06:59 18:59 Intake Total 960 / 960 480 / 480 Output Total 0 / 0 Balance 960 / 960 480 / 480 Weight 99.7 kg Intake: Oral 960 / 960 480 / 480 Output: Urine 0 / 0 Other: Date of Last Bowel Movement 03/11/18 03/11/18 03/11/18 # Bowel Movements 2 0 Narrative: GENERAL: AAOx3, emotional, slightly disheveled SKIN: Warm and dry. No rashes HEAD: Atruamtic, normocephalic. EYES: No scleral icterus. No injection or drainage. ENT: Moist mucous membranes, patent nares, no erythema of oropharynx. NECK: Supple, trachea midline. No JVD or lymphadenopathy. Normal thyroid. CARDIOVASCULAR: Regular rate and rhythm. No murmurs, gallops, or rubs. RESPIRATORY: Breath sounds clear equal bilaterally. No crackles or wheezes. No accessory muscle use. GASTROINTESTINAL: Abdomen soft, non-tender, nondistended, normal active bowel sounds MUSCULOSKELETAL: No cyanosis, or edema. NEURO: CN II-XII grossly intact, no focal deficits, no slurring of speech Results - Labs CBC & Chem 7: 03/12/18 06:27 03/12/18 06:27 Laboratory Results - last 24 hr 03/11/18 03/11/18 03/11/18 12:09 17:19 23:50 WBC RBC Hgb Hct MCV MCH MCHC RDW Plt Count MPV Neut % (Auto) Lymph % (Auto) [place] % (Auto) Eos % (Auto) Baso % (Auto) Neut # (Auto) Lymph # (Auto) [place] # (Auto) Eos # (Auto) Baso # (Auto) WBC Differential Differential Comment APTT Sodium Potassium Chloride Carbon Dioxide Anion Gap BUN Creatinine Estimated GFR POC Glucose 241 H 146 H 139 H Random Glucose Calcium Phosphorus Magnesium Total Bilirubin AST ALT Alkaline Phosphatase Ammonia Total Protein Albumin 03/12/18 03/12/18 03/12/18 05:19 06:27 06:27 WBC 6.1 RBC 3.10 L Hgb 9.3 L Hct 28.5 L MCV 92.0 MCH 30.0 MCHC 32.7 RDW 15.7 Plt Count 289 MPV 7.7 Neut % (Auto) 67.3 Lymph % (Auto) 17.8 [place] % (Auto) 9.4 H Eos % (Auto) 4.2 H Baso % (Auto) 1.3 Neut # (Auto) 4.1 Lymph # (Auto) 1.1 [place] # (Auto) 0.6 Eos # (Auto) 0.3 Baso # (Auto) 0.1 WBC Differential . Differential Comment Auto diff final APTT 24.2 L Sodium Potassium Chloride Carbon Dioxide Anion Gap BUN Creatinine Estimated GFR POC Glucose 111 H Random Glucose Calcium Phosphorus Magnesium Total Bilirubin AST ALT Alkaline Phosphatase Ammonia Total Protein Albumin 03/12/18 03/12/18 06:27 06:27 WBC RBC Hgb Hct MCV MCH MCHC RDW Plt Count MPV Neut % (Auto) Lymph % (Auto) [place] % (Auto) Eos % (Auto) Baso % (Auto) Neut # (Auto) Lymph # (Auto) [place] # (Auto) Eos # (Auto) Baso # (Auto) WBC Differential Differential Comment APTT Sodium 131 L Potassium 6.0 H Chloride 92 L Carbon Dioxide 27.3 Anion Gap 12 BUN 65 H Creatinine 10.56 H* D Estimated GFR 4 L POC Glucose Random Glucose 104 Calcium 8.3 L Phosphorus 6.4 H Magnesium 2.2 Total Bilirubin 0.4 AST 11 L ALT 18 Alkaline Phosphatase 121 H Ammonia 14 Total Protein 7.5 D Albumin 2.9 L Assessment and Plan - Plan End-stage renal disease, fluid overload, shortness of breath Skipped 2 dialysis treatments last weekend, catching up while in the hospital Patient remains hypertensive with some hyperkalemia, undergoing dialysis to improve this Next scheduled dialysis is today Appreciate nephrology consult (Dr. 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
--- NOTE | 2018-03-12 15:03 | P.PNNP ---
Subjective Interval history: Patient is seen during hemodialysis Physical Exam Vital signs: Vital Signs 03/11/18 15:19 03/11/18 16:00 03/11/18 16:01 Temperature 99.0 F Pulse Rate 77 72 72 Respiratory Rate 18 22 22 Blood Pressure 105/51 L Pulse Oximetry 99 99 03/11/18 17:00 03/11/18 18:00 03/11/18 19:00 Temperature Pulse Rate 72 73 77 Respiratory Rate 19 10 L 21 Blood Pressure 107/52 L 117/75 114/55 L Pulse Oximetry 96 99 98 03/11/18 20:00 03/11/18 20:02 03/11/18 20:21 Temperature 98.5 F Pulse Rate 78 76 79 Respiratory Rate 20 18 19 Blood Pressure 167/103 H 172/101 H 172/81 H Pulse Oximetry 95 98 97 03/11/18 21:00 03/11/18 21:22 03/11/18 22:00 Temperature Pulse Rate 76 74 71 Respiratory Rate 46 H 16 23 Blood Pressure 181/72 H 158/65 H Pulse Oximetry 99 100 99 03/11/18 23:00 03/11/18 23:28 03/12/18 00:00 Temperature 98.6 F Pulse Rate 71 66 68 Respiratory Rate 12 18 21 Blood Pressure 145/63 H 157/72 H Pulse Oximetry 99 99 99 03/12/18 01:00 03/12/18 02:00 03/12/18 03:00 Temperature Pulse Rate 66 63 62 Respiratory Rate 17 22 22 Blood Pressure 121/56 L 123/57 L 127/59 L Pulse Oximetry 94 L 91 L 93 L 03/12/18 04:00 03/12/18 05:00 03/12/18 06:00 Temperature 98.4 F Pulse Rate 60 60 63 Respiratory Rate 17 44 H 20 Blood Pressure 139/61 134/60 140/63 Pulse Oximetry 95 93 L 92 L 03/12/18 07:00 03/12/18 08:00 03/12/18 09:00 Temperature 98.5 F Pulse Rate 65 61 71 Respiratory Rate 25 H 20 25 H Blood Pressure 126/58 L 134/60 207/81 H Pulse Oximetry 93 L 99 95 03/12/18 09:25 03/12/18 10:00 03/12/18 11:00 Temperature Pulse Rate 69 70 67 Respiratory Rate 14 29 H 14 Blood Pressure 167/67 H 152/62 H 177/77 H Pulse Oximetry 99 96 96 03/12/18 12:00 Temperature 98.5 F Pulse Rate 69 Respiratory Rate 13 Blood Pressure 159/65 H Pulse Oximetry Intake & Output 03/11/18 03/12/18 03/12/18 18:59 06:59 18:59 Intake Total 960 / 960 480 / 480 Output Total 0 / 0 Balance 960 / 960 480 / 480 Weight 99.7 kg Intake: Oral 960 / 960 480 / 480 Output: Urine 0 / 0 Other: Date of Last Bowel Movement 03/11/18 03/11/18 03/11/18 # Bowel Movements 2 0 - Constitutional no acute distress - Routine HEENT Exam Head: Present: normocephalic Eye: Present: EOMI - Routine Neck Exam Present: supple - Routine Respiratory Exam Present: CTA bilaterally - Routine Cardiovascular Exam Present: RRR - Routine Abdominal Exam Present: soft - Routine Extremities Exam Present: edema Assessment and Plan - Assessment (1) ESRD (end stage renal disease) on dialysis Code(s): N18.6 - End stage renal disease; Z99.2 - Dependence on renal dialysis Status: Acute (2) Acute hyperkalemia Code(s): E87.5 - Hyperkalemia Status: Acute (3) DM (diabetes mellitus) Code(s): E11.9 - Type 2 diabetes mellitus without complications Status: Chronic Qualifiers: Diabetes mellitus type: type 2 Diabetes mellitus mcfp insulin use: without mcfp use Diabetes mellitus complication status: with skin complications Diabetes mellitus complication detail: with other skin complication Qualified Code(s): E11.628 - Type 2 diabetes mellitus with other skin complications (4) Hypertension Code(s): I10 - Essential (primary) hypertension Status: Acute - Plan I have seen during hemodialysis again 6 L of planned on 1K bath, continue to follow her progress she is told not to miss her dialysis and cut back on potassium intake Potassium went back to 6 Continue to monitor her progress while in the hospital, Hemodialysis on Saturday and Saturday Monitor BMP Educated her about diet low in potassium.
[2018-03-12] MEDS: STERILE IV.SIG PRN (15:40)
[2018-03-12] MEDS: WATER FOR INJ IV.SIG PRN (15:40)
[2018-03-12] MEDS: SODIUM THIOSULFATE IV.SIG PRN (15:40)
[2018-03-12] MEDS: traZODone 50 MG Tablet PO SCH (20:49)
[2018-03-13] MEDS: Insulin NovoLOG Aspart Correctional Sugar Inj SQ SCH ×2 (01:03→06:07)
[2018-03-13] MEDS: Chlorhexidine Gluconate 2% 1 Pack (2 Cloths) TOPICAL SCH (04:00)
[2018-03-13 06:29] LABS: Calcium 8.6 mg/dL (8.5-10.1); Carbon Dioxide 29.6 meq/L (21.0-32.0); Potassium 4.8 meq/L (3.5-5.1)
[2018-03-13 08:25] LABS: Hematocrit 31.7 % (35.0-46.0); Hemoglobin 10.4 gm/dL (11.6-15.3); Mean Corpuscular HGB Conc 32.7 % (32.0-36.0); Mean Corpuscular Volume 91.6 fL (80.0-100.0); Mean Platelet Volume 7.8 fL (7.0-11.0); Platelet Count 313 th/mm3 (150-450); Red Blood Count 3.46 mil/mm3 (4.00-5.30); Red Cell Distribution Width 15.6 % (11.6-17.2); White Blood Count 6.1 th/mm3 (4.0-11.0)
[2018-03-13] MEDS: amLODIPine 5 MG Tablet PO SCH (08:45)
[2018-03-13] MEDS: Sertraline 100 MG Tablet PO SCH (08:45)
[2018-03-13] MEDS: Mupirocin 2% Nasal Oint Topical Syringe EACH NARE SCH (08:45)
[2018-03-13] MEDS: hydrALAZINE 50 MG Tablet PO SCH (08:45)
[2018-03-13] MEDS: Pantoprazole Sodium 20 MG DR Tablet PO SCH (08:45)
[2018-03-13] MEDS: Vitamin B Complex/Vit C/Folic Tablet PO SCH (08:45)
[2018-03-13] MEDS: Carvedilol 12.5 MG Tablet PO SCH (08:45)
[2018-03-13] MEDS: Senna/Docusate Sodium 8.6/50 MG Tablet PO SCH (08:46)
[2018-03-13] MEDS: Docusate Sodium 100 MG Capsule PO SCH (08:46)
--- NOTE | 2018-03-13 09:19 | P.DS ---
Date of admission: 03/10/18 09:47 Primary care physician: UNKNOWN Brief History from admission: 47-year-old female admitted for shortness of breath, fluid overload, electrolyte imbalance secondary to missing 2 dialysis treatments as an outpatient. DS: Medications - Discharge Medications Prescriptions: alprazolam 0.25 mg PO BID PRN 30 Days #60 tab PRN Reason: Anxiety clotrimazole-betamethasone [Lotrisone] 1 applic TOPICAL BID 14 Days #1 g mupirocin calcium [Bactroban] 1 applic TOPICAL BID 14 Days #1 g DS: Summary Hospital Course: 47-year-old female who was admitted for fluid overload, shortness of breath, electrolyte imbalance secondary to missing 2 outpatient dialysis treatments. Following 2 dialysis treatments here her electrolytes are balance, blood pressure controlled, energy has returned, no shortness of breath. She has saying that she is ready to go home, clinically she is ready as well. She is recommended to follow-up with her dialysis tomorrow and not miss any further treatments. For her complaint of rash she is given Lotrisone cream, Bactroban for sores that are recurrent on her face and arms, Xanax to treat anxiety and panic attacks. - Time Spent with Patient Total time spent providing and/or coordinating discharge services: Less than 30 minutes - Quality: VTE Deep Vein Thrombosis/Pulmonary Embolism Present on Admission: No Exam Vital signs: Vital Signs 03/12/18 09:25 03/12/18 10:00 03/12/18 11:00 Temperature Pulse Rate 69 70 67 Respiratory Rate 14 29 H 14 Blood Pressure 167/67 H 152/62 H 177/77 H Pulse Oximetry 99 96 96 03/12/18 12:00 03/12/18 19:47 03/12/18 20:00 Temperature 98.5 F 98.7 F Pulse Rate 69 75 Respiratory Rate 13 16 Blood Pressure 159/65 H 129/58 L Pulse Oximetry 99 97 03/13/18 00:00 03/13/18 04:00 03/13/18 07:58 Temperature 98.5 F 98.4 F Pulse Rate 64 61 Respiratory Rate 18 18 Blood Pressure 151/58 H 156/63 H Pulse Oximetry 98 98 95 Intake & Output 03/12/18 03/13/18 03/13/18 18:59 06:59 18:59 Intake Total 960 / 960 480 / 480 Output Total 6000 / 6000 0 / 0 Balance -5040 / -5040 480 / 480 Weight 96.6 kg Intake: Oral 960 / 960 480 / 480 Output: Urine 0 / 0 Hemodialysis Amount 6000 / 6000 Other: Date of Last Bowel Movement 03/11/18 03/12/18 # Bowel Movements 1 0 Results Procedures completed during hospitalization: Dialysis x 2 Labs on day of discharge: Labs from last 24 hours 03/13/18 03/13/18 03/13/18 05:59 04:54 04:54 WBC 6.1 RBC 3.46 L Hgb 10.4 L Hct 31.7 L MCV 91.6 MCH 30.0 MCHC 32.7 RDW 15.6 Plt Count 313 MPV 7.8 Sodium 135 L Potassium 4.8 D Chloride 94 L Carbon Dioxide 29.6 Anion Gap 11 BUN 44 H Creatinine 7.92 H Estimated GFR 6 L POC Glucose 172 H Random Glucose 139 H Calcium 8.6 03/13/18 03/12/18 03/12/18 00:39 17:53 12:10 WBC RBC Hgb Hct MCV MCH MCHC RDW Plt Count MPV Sodium Potassium Chloride Carbon Dioxide Anion Gap BUN Creatinine Estimated GFR POC Glucose 168 H 121 H 215 H Random Glucose Calcium - Impressions ITS Impressions Chest X-Ray 03/10/18 07:26 CONCLUSION: 1. Hypoaerated lungs. 2. Mild cardiomegaly. 3. Otherwise stable exam without evidence of consolidating airspace disease. Discharge Plan - Discharge Disposition Patient Disposition: Discharge Home - Discharge Condition Condition: Good - Discharge Order Discharge Orders: Discharge Order (Routine); Ordered 03/13/18 Ordered By: Sergio Carvalho - Physicians Team Primary Care Provider: UNKNOWN, Attending Provider: Sergio Carvalho Other Providers: [employer],Insurance
== END 2018-03-13 09:50 | disposition home or self-care (01) ==
LOC: NEPE 06:48 → NEDA 09:47 → HIMC 14:01
PROVIDERS: ADMIT Family Medicine; ATTEND Family Medicine